=== PATIENT | male | born 1965 | race African-American/Black ===

== ENCOUNTER 2016-12-01 13:51 | Emergency (ER) | payer SELFPAY ==
[~2016-12-01] VITALS: Ht 172.7 cm; Wt 106.6 kg
[~2016-12-01 13:51] MED LIST: AMLO10TA2 PO; AMLO10TA4 PO; ASPI81TA44 PO; CRESTOR20 MG PO; DOXA4TAB3 PO; ESOM20CA PO; ESOM40CA PO; HYDR-2666 PO; HYDR-2672 PO; HYDR-971 PO; IBUP-1027 PO; INSU100C4 SQ; INSU100I17 SQ; INSU100I18 SQ; INSU100I27 SQ; INSU100V13 SQ; METF10002 PO; METF500T4 PO; METO10TA81 PO; NICO1PAT2 TP; ONDA4TAB10 SL; PROP40TA PO; RABE20TA5 PO; RANI150C PO; TAMS0.4C97 PO; VALS320T2 PO
[2016-12-01] MEDS ORDERED: IV NORMAL SALINE 1000ML BAG 1,000 ML IV SCH (15:22)
[2016-12-01 15:29] LABS: BASO % 0 % (0-3); EOS % 2 % (0-3); HEMATOCRIT 34.7 % (39.0-53.0); HEMOGLOBIN 11.2 g/dL (13.0-17.5); LYMPH # 1.1 x10^3/uL (1.0-4.8); LYMPH % 22 % (24-48); MEAN CORPUSCULAR HEMOGLOBIN 28 pg (25-35); MEAN CORPUSCULAR HGB CONC 32 g/dL (31-37); MEAN CORPUSCULAR VOLUME 88 fL (79-100); MONO % 7 % (0-9); NEUT % 69 % (31-73); PLATELET COUNT 186 x10^3/uL (140-400); RED BLOOD COUNT 3.93 x10^6/uL (4.30-5.70); WHITE BLOOD COUNT 5.3 x10^3/uL (4.0-11.0)
[2016-12-01] MEDS ORDERED: HYDROMORPHONE 2 MG/ML VIAL. IV ONE ×2 (15:30→17:00)
--- NOTE | 2016-12-01 15:30 | ED.ADGEN ---
Past Medical History Past Medical History: Diabetes-Type II, High Cholesterol, Hypertension, Pancreatitis, Renal Disease, Vascular Disease Additional Past Medical Histor: CHRONIC KIDNEY DISEASE, neuropathy, prostate Past Surgical History: Coronary Bypass Surgery, Other Additional Past Surgical Histo: HERNIA REPAIR Alcohol Use: Occasionally Drug Use: None Adult General Chief Complaint Chief Complaint: CHEST PAIN HPI HPI Patient is a 51 year old male presents emergency Department with multiple complaints. Patient is complaining that he is having pain again in his lower extremities including both great toes. Patient states this is similar to pain he has had due to his peripheral vascular disease. Patient did have right fem- pop bypass surgery last May. Patient reports that the pain is been increasing again over the last 1.5 weeks. However, the patient is not called his primary doctor nor his vascular surgeon regarding this issue. Patient states that his blood sugars have been running in the 200s and today they were up in the 300s. Patient also complains of some intermittent "stabbing" chest pain since last night. He also states he thinks he may be feeling his heart "fluttering". Both of these things only occur for a few seconds at a time. He has no associated nausea, vomiting, diaphoresis, dyspnea. Review of Systems Review of Systems Constitutional: Denies fever or chills. [] Eyes: Denies change in visual acuity. [] HENT: Denies nasal congestion or sore throat. [] Respiratory: Denies cough or shortness of breath. [] Cardiovascular: Denies chest pain or edema. [] GI: Denies abdominal pain, nausea, vomiting, bloody stools or diarrhea. [] : Denies dysuria. [] Musculoskeletal: Denies back pain or joint pain. [] Integument: Denies rash. [] Neurologic: Denies headache, focal weakness or sensory changes. [] Endocrine: Denies polyuria or polydipsia. [] Lymphatic: Denies swollen glands. [] Psychiatric: Denies depression or anxiety. [] Current Medications Current Medications Current Medications Medications (Trade) Dose Ordered Sig/Kiera Start Time Stop Time Status Last Admin Dose Admin Hydromorphone HCl (Dilaudid) 1 mg 1X ONCE 12/01/16 17:00 12/01/16 17:01 DC 12/01/16 17:09 1 MG Sodium Chloride (Iv Sodium Chloride 0.9% 1000ml Bag) 1,000 ml @ 1,000 mls/hr Q1H 12/01/16 15:22 12/01/16 16:21 DC 12/01/16 15:41 1,000 MLS/HR Allergies Allergies Allergies Coded Allergies Type Severity Reaction Last Updated Verified Sulfa (Sulfonamide Antibiotics) Allergy Intermediate Rash 08/05/16 Yes Physical Exam Physical Exam Constitutional: Well developed, well nourished, no acute distress, non-toxic appearance. [] HENT: Normocephalic, atraumatic, bilateral external ears normal, oropharynx moist, no oral exudates, nose normal. [] Eyes: PERRLA, EOMI, conjunctiva normal, no discharge. [] Neck: Normal range of motion, no tenderness, supple, no stridor. [] Cardiovascular:Heart rate regular rhythm, no murmur [] Lungs & Thorax: Bilateral breath sounds clear to auscultation [] Abdomen: Bowel sounds normal, soft, no tenderness, no masses, no pulsatile masses. [] Skin: Warm, dry, no erythema, no rash. [] Back: No tenderness, no CVA tenderness. [] Extremities: No tenderness, no cyanosis, no clubbing, ROM intact, no edema. [] Neurologic: Alert and oriented X 3, normal motor function, normal sensory function, no focal deficits noted. [] Psychologic: Affect normal, judgement normal, mood normal. [] Current Patient Data Vital Signs Vital Signs Date Time Temp Pulse Resp B/P Pulse Ox O2 Delivery O2 Flow Rate FiO2 12/01/16 17:09 Room Air 12/01/16 16:30 82 28 146/74 99 12/01/16 13:59 97.5 97.5 Lab Values Laboratory Tests Test 12/01/16 14:03 12/01/16 14:50 White Blood Count 5.3x10^3/uL (4.0-11.0) Red Blood Count 3.93x10^6/uL (4.30-5.70) L Hemoglobin 11.2g/dL (13.0-17.5) L Hematocrit 34.7% (39.0-53.0) L Mean Corpuscular Volume 88fL (79-100) Mean Corpuscular Hemoglobin 28pg (25-35) Mean Corpuscular Hemoglobin Concent 32g/dL (31-37) Red Cell Distribution Width 14.0% (11.5-14.5) Platelet Count 186x10^3/uL (140-400) Neutrophils (%) (Auto) 69% (31-73) Lymphocytes (%) (Auto) 22% (24-48) L Monocytes (%) (Auto) 7% (0-9) Eosinophils (%) (Auto) 2% (0-3) Basophils (%) (Auto) 0% (0-3) Neutrophils # (Auto) 3.7x10^3uL (1.8-7.7) Lymphocytes # (Auto) 1.1x10^3/uL (1.0-4.8) Monocytes # (Auto) 0.4x10^3/uL (0.0-1.1) Eosinophils # (Auto) 0.1x10^3/uL (0.0-0.7) Basophils # (Auto) 0.0x10^3/uL (0.0-0.2) Prothrombin Time 11.9SEC (11.7-14.0) Prothrombin Time INR 0.9 (0.8-1.1) PTT 25SEC (24-38) Sodium Level 139mmol/L (136-145) Potassium Level 3.9mmol/L (3.5-5.1) Chloride Level 104mmol/L (98-107) Carbon Dioxide Level 21mmol/L (21-32) Anion Gap 14 (6-14) Blood Urea Nitrogen 33mg/dL (8-26) H Creatinine 1.7mg/dL (0.7-1.3) H Estimated GFR (Cockcroft-Gault) 51.5 BUN/Creatinine Ratio 19 (6-20) Glucose Level 469mg/dL (70-99) H Calcium Level 8.5mg/dL (8.5-10.1) Total Bilirubin 0.2mg/dL (0.2-1.0) Aspartate Amino Transferase (AST) 14U/L (15-37) L Alanine Aminotransferase (ALT) 18U/L (16-63) Alkaline Phosphatase 101U/L (46-116) Troponin I Quantitative 0.041ng/mL (0.000-0.055) Total Protein 6.6g/dL (6.4-8.2) Albumin 2.9g/dL (3.4-5.0) L Albumin/Globulin Ratio 0.8 (1.0-1.7) L Urine Collection Type Unknown Urine Color Yellow Urine Clarity Clear Urine pH 5.5 Urine Specific [place] >=1.030 Urine Protein >=300mg/dL (NEG-TRACE) Urine Glucose (UA) >=1000mg/dL (NEG) Urine Ketones (Stick) Negativemg/dL (NEG) Urine Blood Trace (NEG) Urine Nitrite Negative (NEG) Urine Bilirubin Negative (NEG) Urine Urobilinogen Dipstick 0.2mg/dL (0.2 mg/dL) Urine Leukocyte Esterase Negative (NEG) Urine RBC Rare/HPF (0-2) Urine WBC Occ/HPF (0-4) Urine Squamous Epithelial Cells Few/LPF Urine Bacteria 0/HPF (0-FEW) Urine Hyaline Casts Few/HPF Urine Mucus Slight/LPF Urine Opiates Screen Pos (NEG) Urine Methadone Screen Neg (NEG) Urine Barbiturates Neg (NEG) Urine Phencyclidine Screen Neg (NEG) Urine Amphetamine/Methamphetamine Neg (NEG) Urine Benzodiazepines Screen Neg (NEG) Urine Cocaine Screen Pos (NEG) Urine Cannabinoids Screen Neg (NEG) Urine Ethyl Alcohol Neg (NEG) Laboratory Tests 12/01/16 14:03 Laboratory Tests 12/01/16 14:03 EKG EKG [] Radiology/Procedures Radiology/Procedures Chest x-ray interpreted by me, no acute cardiopulmonary process. PROCEDURE Bilateral lower extremity venous Doppler HISTORY pt c/o ble pain x 3 weeks r>l
rt fem bypass Apr 2016

reactive lymph nodes rt groin
no evidence of dvt bilateral leg pain, right femoral bypass April 2016 TECHNIQUE Duplex ultrasound was used to evaluate the veins of the right lower extremity and including real-time imaging with compression, color flow imaging and spectral Doppler with augmentation. COMPARISON None FINDINGS There are mildly prominent lymph nodes in the right groin.. Common femoral arteries are compressible in both lower extremities. There is normal flow with color imaging in the common femoral arteries and in the deep femoral artery. The femoral and popliteal arteries are compressible in both lower extremities and have flow with color imaging. There is normal antegrade flow with augmentation. There is flow with color imaging in the deep veins of the calf in both lower extremities. IMPRESSION Bilateral lower extremity venous Doppler negative for acute deep venous thrombosis. Electronically signed by: Tan Blount MD (Dec 01, 2016 17:42:34) DICTATED and SIGNED BY: TAN BLOUNT MD DATE: 12/01/16 5133 CC: NIVIA LEBLANC MD; NO PCP ~[] Course & Med Decision Making Course & Med Decision Making Pertinent Labs and Imaging studies reviewed. (See chart for details) Overall, the patient has a reassuring workup. He did ask surprised that he had cocaine in his system and that that may be contributing to some of his pain. Patient is being discharged home with instructions follow-up with his vascular surgeon on Saturday. [] Dragon Disclaimer Dragon Disclaimer This electronic medical record was generated, in whole or in part, using a voice recognition dictation system. NIVIA LEBLANC MD Dec 01, 2016 15:30
[2016-12-01 15:31] LABS: BILIRUBIN,URINE NEGATIVE (NEG); GLUCOSE,URINE >=1000 mg/dL (NEG); NITRITE,URINE NEGATIVE (NEG); PH,URINE 5.5; PROTEIN,URINE >=300 mg/dL (NEG-TRACE); UROBILINOGEN,URINE 0.2 mg/dL (0.2 mg/dL)
[2016-12-01 15:36] LABS: RBC,URINE RARE /HPF (0-2); WBC,URINE OCC /HPF (0-4)
[2016-12-01 15:37] LABS: BACTERIA,URINE 0 /HPF (0-FEW); SQUAMOUS EPITHELIAL CELL,UR FEW /LPF
[2016-12-01 15:38] LABS: BARBITURATES NEG (NEG); BENZODIAZEPINES NEG (NEG); CANNABINOIDS NEG (NEG); COCAINE POS (NEG); METHADONE NEG (NEG); OPIATES POS (NEG); PHENCYCLIDINE NEG (NEG)
[2016-12-01 15:39] LABS: INR 0.9 (0.8-1.1); PROTHROMBIN TIME PATIENT 11.9 SEC (11.7-14.0)
[2016-12-01 15:41] LABS: CALCIUM 8.5 mg/dL (8.5-10.1); CREATININE 1.7 mg/dL (0.7-1.3); GFR 51.5; POTASSIUM 3.9 mmol/L (3.5-5.1)
[2016-12-01 15:46] LABS: ETHANOL, URINE NEG (NEG)
[2016-12-01 15:49] LABS: ALBUMIN 2.9 g/dL (3.4-5.0); ALBUMIN/GLOBULIN RATIO 0.8 (1.0-1.7); TOTAL BILIRUBIN 0.2 mg/dL (0.2-1.0); TOTAL PROTEIN 6.6 g/dL (6.4-8.2)
--- NOTE | 2016-12-01 17:43 | RAD ---
PROCEDURE Bilateral lower extremity venous Doppler HISTORY pt c/o ble pain x 3 weeks r>l
rt fem bypass Apr 2016

reactive lymph nodes rt groin
no evidence of dvt bilateral leg pain, right femoral bypass April 2016 TECHNIQUE Duplex ultrasound was used to evaluate the veins of the right lower extremity and including real-time imaging with compression, color flow imaging and spectral Doppler with augmentation. COMPARISON None FINDINGS There are mildly prominent lymph nodes in the right groin.. Common femoral arteries are compressible in both lower extremities. There is normal flow with color imaging in the common femoral arteries and in the deep femoral artery. The femoral and popliteal arteries are compressible in both lower extremities and have flow with color imaging. There is normal antegrade flow with augmentation. There is flow with color imaging in the deep veins of the calf in both lower extremities. IMPRESSION Bilateral lower extremity venous Doppler negative for acute deep venous thrombosis. Electronically signed by: Jozef Piña MD (Dec 01, 2016 17:42:34)
[2016-12-01] MEDS ORDERED: HYDR-971 PO (17:59)
[2016-12-01 18:00] VITALS: BP 169/64
--- NOTE | 2016-12-02 09:11 | RAD ---
Indication: Chest pain for one day. Radiates to left. Technique: Upright portable chest radiograph was obtained. Comparison is from June 12, 2016. Findings: The lungs are clear. The cardiopulmonary silhouette is within normal limits. The bony structures are intact. Leads overlie the patient. Impression: No active pulmonary disease.
--- NOTE | 2016-12-02 11:14 | EKG ---
[facility] [address] [place] [address] Test Date: 2016-12-01 Test Time: 13:59:20 Pat Name: HAILEY MOREIRA Department: Room: Gender: M Procedure Writer: : 1965 Requested By: NIVIA LELBANC Order Number: [id number] Reading MD: Maite Kemp Measurements Intervals [place] Rate: 78 P: 50 AL: 172 QRS: 16 QRSD: 78 T: 172 QT: 368 QTc: 423 Interpretive Statements SINUS RHYTHM T ABNORMALITY IN ANTEROLATERAL LEADS INFEROLATERAL LEADS RI6.01 Unconfirmed report Compared to ECG 02/21/2016 14:28:16 No significant changes Electronically Signed On 12-02-2016 15:12:38 CDT by Maite Kemp
== END 2016-12-01 18:30 | disposition home or self-care (01) ==
LOC: ER 13:51
DX: M79.675 Pain in left toe(s) (principal); M79.674 Pain in right toe(s); I13.10 Hypertensive heart and chronic kidney disease without heart failure, with stage 1 through stage 4 chronic kidney disease, or unspecified chronic kidney disease; E11.40 Type 2 diabetes mellitus with diabetic neuropathy, unspecified; N18.9 Chronic kidney disease, unspecified; I99.9 Unspecified disorder of circulatory system; I73.9 Peripheral vascular disease, unspecified; Z95.1 Presence of aortocoronary bypass graft; Z88.2 Allergy status to sulfonamides
CPT/HCPCS: 36415; 71010; 80053; 81001; 84484; 85027; 85610; 85730; 93005; 93970; 96361; 96374; 96376; 99285; G0481; J1170; J7030

== ENCOUNTER 2017-04-08 09:04 | Inpatient (IN) | payer MEDICAID, OTHER ==
[~2017-04-08] VITALS: Ht 172.7 cm; Wt 107.7 kg
[~2017-04-08 09:04] MED LIST changes: -HYDR-2666 PO; -HYDR-2672 PO; +HYDR-2758 PO; +HYDR-2766 PO; +METF-620 PO; -METF10002 PO; +RABE20TA18 PO; -RABE20TA5 PO
[2017-04-08] MEDS ORDERED: IV NORMAL SALINE 1000ML BAG 1,000 ML IV ONE ×2 (09:45→11:30)
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
[2017-04-08 09:56] LABS: BASO % 1 % (0-3); EOS % 2 % (0-3); HEMATOCRIT 36.4 % (39.0-53.0); HEMOGLOBIN 12.1 g/dL (13.0-17.5); LYMPH # 1.4 x10^3/uL (1.0-4.8); LYMPH % 24 % (24-48); MEAN CORPUSCULAR HEMOGLOBIN 29 pg (25-35); MEAN CORPUSCULAR HGB CONC 33 g/dL (31-37); MEAN CORPUSCULAR VOLUME 87 fL (79-100); MONO % 7 % (0-9); NEUT % 67 % (31-73); PLATELET COUNT 200 x10^3/uL (140-400); RED BLOOD COUNT 4.21 x10^6/uL (4.30-5.70); WHITE BLOOD COUNT 5.8 x10^3/uL (4.0-11.0)
[2017-04-08 10:10] LABS: CALCIUM 8.9 mg/dL (8.5-10.1); CREATININE 2.2 mg/dL (0.7-1.3); GFR 38.2; POTASSIUM 3.8 mmol/L (3.5-5.1)
[2017-04-08 10:18] LABS: ALBUMIN 3.1 g/dL (3.4-5.0); ALBUMIN/GLOBULIN RATIO 0.7 (1.0-1.7); TOTAL BILIRUBIN 0.3 mg/dL (0.2-1.0); TOTAL PROTEIN 7.3 g/dL (6.4-8.2)
[2017-04-08 11:19] LABS: NEGATIVE OBC STREP NEG; POSITIVE OBC STREP POS
[2017-04-08] MEDS ORDERED: fentaNYL PF VIAL 100 MCG/2 ML VIAL IV ONE (11:30)
[2017-04-08] MEDS ORDERED: MORPHINE SULFATE 4 MG/ML DISP.SYRIN. IV PRN (11:30)
[2017-04-08] MEDS ORDERED: ONDANSETRON PF 4 MG/2 ML VIAL. IV PRN ×2 (11:30→15:30)
[2017-04-08] MEDS: IV NORMAL SALINE 1000ML BAG 1,000 ML IV SCH ×2 (11:43→19:29)
[2017-04-08] MEDS ORDERED: hydrALAZINE 20 MG/ML VIAL. IVP ONE (12:15)
[2017-04-08 14:54] VITALS: BP 163/95
[2017-04-08] MEDS ORDERED: DEXTROSE 50% 25 GM / 50ML DISP.SYRIN. IV PRN (15:15)
[2017-04-08] MEDS ORDERED: BENZOCAINE/MENTHOL LOZENGE. PO PRN ×4 (15:15→22:00)
[2017-04-08] MEDS ORDERED: traMADol 50 MG TABLET PO PRN (15:30)
[2017-04-08] MEDS ORDERED: DOCUSATE SODIUM 100 MG CAPSULE. PO PRN (15:30)
[2017-04-08] MEDS ORDERED: ALBUTEROL SULFATE 2.5 MG/3 ML NEBU. NEB PRN (15:30)
[2017-04-08] MEDS ORDERED: NICOTINE 14MG PATCH. TD PRN (15:30)
[2017-04-08] MEDS ORDERED: METOCLOPRAMIDE 10 MG TABLET. PO PRN (15:30)
[2017-04-08] MEDS ORDERED: hydrALAZINE 20 MG/ML VIAL. IVP PRN (15:30)
[2017-04-08] MEDS ORDERED: ACETAMINOPHEN 325 MG TABLET. PO PRN (15:30)
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
[2017-04-08] MEDS ORDERED: ENOXAPARIN 30 MG/0.3 ML SYRINGE. SQ SCH (16:00)
[2017-04-08] MEDS ORDERED: ENOXAPARIN 40 MG/0.4 ML SYRINGE. SQ SCH (16:00)
[2017-04-08] MEDS: amLODIPine BESYLATE 10 MG TABLET PO SCH (17:00)
[2017-04-08] MEDS: LOSARTAN POTASSIUM 50 MG TABLET. PO SCH (17:00)
[2017-04-08] MEDS: ASPIRIN CHEWABLE 81 MG TABLET. PO SCH (17:01)
[2017-04-08] MEDS: DOXAZOSIN MESYLATE 4 MG TABLET. PO SCH (17:01)
[2017-04-08] MEDS: INSULIN ASPART 300 UNITS/3 ML INSULN.PEN SQ SCH ×2 (17:05→17:06)
[2017-04-08 19:00] VITALS: BP 159/79
[2017-04-08] MEDS: MORPHINE SULFATE 2 MG/ML DISP.SYRIN. IV PRN ×2 (19:01→22:04)
[2017-04-08] MEDS: INSULIN DETEMIR 300 UNITS/3 ML INSULN.PEN. SQ SCH (21:28)
[2017-04-08] MEDS ORDERED: DOCUSATE 100 MG/10 ML SOLUTION. AU PRN (21:30)
[2017-04-08] MEDS ORDERED: CALCIUM CARBONATE 500 MG TAB.CHEW PO PRN (22:00)
[2017-04-08] MEDS ORDERED: BISMUTH SUBSALICYLATE 262 MG/15 ML ORAL.SUSP 236ML BOTTLE. PO PRN (22:00)
[2017-04-08] MEDS: FAMOTIDINE 20 MG TABLET. PO SCH (22:03)
[2017-04-08] MEDS: PHENOL ORAL SPRAY 177ML BOTTLE. PO PRN (22:04)
[2017-04-08] MEDS: LIDOCAINE 1% PF 2 ML VIAL. AU PRN (22:04)
[2017-04-08 22:42] VITALS: BP 156/89
[2017-04-09] MEDS: PHENOL ORAL SPRAY 177ML BOTTLE. PO PRN ×3 (00:16→06:29)
[2017-04-09] MEDS: LIDOCAINE 1% PF 2 ML VIAL. AU PRN ×4 (02:09→20:44)
[2017-04-09] MEDS: MORPHINE SULFATE 2 MG/ML DISP.SYRIN. IV PRN (02:13)
[2017-04-09] MEDS: IV NORMAL SALINE 1000ML BAG 1,000 ML IV SCH (03:15)
--- NOTE | 2017-04-09 04:36 | ACF ---
Admission Forms Criteria RENAL FAILURE, ACUTE Clinical Indications for Admission to Inpatient Care ( Place 'X' for any and all applicable criteria): Admission is indicated for ALL (if I & II) or III of the following [A](2)(3)(4)( 5)(6)(7): [ ]I. Acute renal failure as indicated by ANY ONE of the following: [ ]a) A 3-fold rise in serum creatinine from baseline [ ]b) Serum creatinine greater than 4 mg/dL (354 micromoles/L) with an acute rise greater than 0.5 mg/dL (44.2 micromoles/L) [ ]c) Reduction of more than 75% in estimated glomerular filtration rate from baseline [ ]d) Estimated glomerular filtration rate less than 35 mL/min/1.73m2 (0.59mL/sec/1.73m2)in a child up to 18 years of age [ ]e) Anuria indicated by ALL of the following: [ ]i) Adequate volume status [ ]ii) Cessation of urine output indicated by ANY ONE of the following: [ ]1) Urine output less than 0.3 mL/kg/hr for 24 hours [ ]2) Anuria (urine output less than 0.1 mL/kg/ hr) for 12 hours [ ] II. Renal failure cannot be managed in an outpatient setting or observational care setting as indicating by ANY ONE of the following: [ ]a) Altered mental status that is severe or persistent [ ]b) Volume overload or Respiratory distress (eg, clinically significant pulmonary edema) that is severe or persistent [ ]c) Cardiac arrhythmias of immediate concern [ ]d) Hemodynamic instability [ ]e) Clinically significant electrolyte abnormality that requires inpatient care (eg, hyperkalemia with severe ECG findings)[B] [ ]f) Clinically significant metabolic abnormality (eg, acidosis) that is severe or persistent [ ]g) Acute treatment of renal failure (eg, renal replacement therapy) not feasible or appropriate in observational care setting [ ]h) Clinical situation too unstable or uncertain (eg, inadequate urine output, ongoing decline in renal function, etiology unclear) [ ]i) Necessary support and caregiver ability to comply with outpatient treatment cannot be arranged in observation care timeframe (eg, within 24 hours) [ ]j) Other significant finding or clinical condition judged not to be within scope of observation care [X]III.General contraindications and/or Inappropriate clinical situations for Observational Care in patients with Acute Renal Failure, when ANY ONE of the following is required: [X]a) Prediction of prolongation of LOS based on ANY ONE of the following may be considered as a contraindication for observational care 2, 3, 4, 5, 6, 7, 8 , 9, 10, 11 [ ]i) Age > 65 yrs. [ ]ii) Patient arriving by ambulance [ ]iii) Patient with high acuity [X]iv) Patient requiring vital sign monitoring [ ]v) Patient on IV medication [ ]b) Systolic blood pressures 180mmHg 3,12 [ ]c) Patient with altered mental status including delirium and other alteration of consciousness, (3) [ ]d) Patient whose discharge disposition will be to a shelter home or rehabilitation home should not be managed in Emergency Department Observation Unit. CMS rule requires 3 days hospital stay before such placement.3,13 [ ]e) Patient with failure to thrive due to broad array of etiologies 3, 16,17 [ ]f) Inability to ambulate 3,14 Extended stay beyond goal length of stay may be needed for(13) [ ]a) Continuing uremic complications [ ]b) Care for comorbidities [ ]c) acute renal failure [ ]d) Need for dialysis The original [employer] content created by [employer] has been revised. The portions of the content which have been revised are identified through the use of italic text or in bold, and [facility] has neither reviewed nor approved the modified material. All other unmodified content is copyright [employer]. Please see references footnoted in the original [employer] edition 2015 Admission Criteria Met?: Yes VALENTÍN HELLER Apr 09, 2017 04:36
[2017-04-09 06:55] LABS: BASO % 1 % (0-3); EOS % 3 % (0-3); HEMATOCRIT 33.2 % (39.0-53.0); HEMOGLOBIN 11.2 g/dL (13.0-17.5); LYMPH # 1.6 x10^3/uL (1.0-4.8); LYMPH % 34 % (24-48); MEAN CORPUSCULAR HEMOGLOBIN 29 pg (25-35); MEAN CORPUSCULAR HGB CONC 34 g/dL (31-37); MEAN CORPUSCULAR VOLUME 86 fL (79-100); MONO % 8 % (0-9); NEUT % 55 % (31-73); PLATELET COUNT 177 x10^3/uL (140-400); RED BLOOD COUNT 3.86 x10^6/uL (4.30-5.70); RED CELL DISTRIBUTION WIDTH 13.1 % (11.5-14.5); WHITE BLOOD COUNT 4.6 x10^3/uL (4.0-11.0)
[2017-04-09 07:00] VITALS: BP 151/94
[2017-04-09 07:09] LABS: CALCIUM 8.4 mg/dL (8.5-10.1); CREATININE 1.5 mg/dL (0.7-1.3); GFR 59.5; POTASSIUM 3.6 mmol/L (3.5-5.1)
[2017-04-09] MEDS: LOSARTAN POTASSIUM 50 MG TABLET. PO SCH (10:00)
[2017-04-09] MEDS: ASPIRIN CHEWABLE 81 MG TABLET. PO SCH (10:00)
[2017-04-09] MEDS: PANTOPRAZOLE 40 MG TABLET.DR. PO SCH (10:00)
[2017-04-09] MEDS: amLODIPine BESYLATE 10 MG TABLET PO SCH (10:00)
[2017-04-09] MEDS: FAMOTIDINE 20 MG TABLET. PO SCH ×2 (10:00→20:44)
[2017-04-09] MEDS: HYDROcodone/APAP 5/325MG 1 TAB TABLET PO PRN ×2 (10:01→18:07)
[2017-04-09] MEDS: DOXAZOSIN MESYLATE 4 MG TABLET. PO SCH (10:01)
[2017-04-09] MEDS: INSULIN ASPART 300 UNITS/3 ML INSULN.PEN SQ SCH ×6 (10:07→18:12)
[2017-04-09 11:00] VITALS: BP 161/86
--- NOTE | 2017-04-09 13:24 | PDOC ---
PROGRESS NOTES Chief Complaint Chief Complaint sore throat, ear pain, 2/2 viral infection likely, strep neg uncontrolled dm2 on insulin accellerated HTN hld MARQUISE on CKD 3, vasomotor BPH History of Present Illness History of Present Illness still dysphagia, blood sugar better cont levemir 50u qhs, aspart 20u tid, SSI throat lozenge and spray still dysphagia, pain control labs tmr cough meds dvt ppx Vitals Vitals Vital Signs Date Time Temp Pulse Resp B/P (MAP) Pulse Ox O2 Delivery O2 Flow Rate FiO2 04/09/17 11:10 20 93 Room Air 04/09/17 11:00 98.7 71 161/86 (111) 98.7 Physical Exam General: Alert, Oriented X3, Cooperative, No acute distress Heart: Regular rate, No murmurs Lungs: Clear Abdomen: Normal bowel sounds Extremities: No clubbing, No edema Skin: No rashes, No breakdown Labs LABS Laboratory Tests Test 04/08/17 16:10 04/08/17 20:16 04/09/17 06:25 04/09/17 07:43 Glucose (Fingerstick) 458 mg/dL (70-99) 320 mg/dL (70-99) 217 mg/dL (70-99) White Blood Count 4.6 x10^3/uL (4.0-11.0) Red Blood Count 3.86 x10^6/uL (4.30-5.70) Hemoglobin 11.2 g/dL (13.0-17.5) Hematocrit 33.2 % (39.0-53.0) Mean Corpuscular Volume 86 fL (79-100) Mean Corpuscular Hemoglobin 29 pg (25-35) Mean Corpuscular Hemoglobin Concent 34 g/dL (31-37) Red Cell Distribution Width 13.1 % (11.5-14.5) Platelet Count 177 x10^3/uL (140-400) Neutrophils (%) (Auto) 55 % (31-73) Lymphocytes (%) (Auto) 34 % (24-48) Monocytes (%) (Auto) 8 % (0-9) Eosinophils (%) (Auto) 3 % (0-3) Basophils (%) (Auto) 1 % (0-3) Neutrophils # (Auto) 2.5 x10^3uL (1.8-7.7) Lymphocytes # (Auto) 1.6 x10^3/uL (1.0-4.8) Monocytes # (Auto) 0.4 x10^3/uL (0.0-1.1) Eosinophils # (Auto) 0.1 x10^3/uL (0.0-0.7) Basophils # (Auto) 0.0 x10^3/uL (0.0-0.2) Sodium Level 140 mmol/L (136-145) Potassium Level 3.6 mmol/L (3.5-5.1) Chloride Level 106 mmol/L (98-107) Carbon Dioxide Level 27 mmol/L (21-32) Anion Gap 7 (6-14) Blood Urea Nitrogen 18 mg/dL (8-26) Creatinine 1.5 mg/dL (0.7-1.3) Estimated GFR (Cockcroft-Gault) 59.5 Glucose Level 251 mg/dL (70-99) Calcium Level 8.4 mg/dL (8.5-10.1) Test 04/09/17 11:50 Glucose (Fingerstick) 223 mg/dL (70-99) Review of Systems Review of Systems no n.v/d + lethargy, poor po intake Assessment and Plan Assessmemt and Plan Problems Medical Problems: (1) ARF (acute renal failure) Status: Acute (2) Hyperglycemia Status: Acute Problems: Comment Review of Relevant I have reviewed the following items karissa (where applicable) has been applied. Labs Laboratory Tests Test 04/08/17 09:21 04/08/17 09:42 04/08/17 09:44 04/08/17 13:08 Glucose (Fingerstick) 435 mg/dL (70-99) 351 mg/dL (70-99) White Blood Count 5.8 x10^3/uL (4.0-11.0) Red Blood Count 4.21 x10^6/uL (4.30-5.70) Hemoglobin 12.1 g/dL (13.0-17.5) Hematocrit 36.4 % (39.0-53.0) Mean Corpuscular Volume 87 fL (79-100) Mean Corpuscular Hemoglobin 29 pg (25-35) Mean Corpuscular Hemoglobin Concent 33 g/dL (31-37) Red Cell Distribution Width 13.0 % (11.5-14.5) Platelet Count 200 x10^3/uL (140-400) Neutrophils (%) (Auto) 67 % (31-73) Lymphocytes (%) (Auto) 24 % (24-48) Monocytes (%) (Auto) 7 % (0-9) Eosinophils (%) (Auto) 2 % (0-3) Basophils (%) (Auto) 1 % (0-3) Neutrophils # (Auto) 3.9 x10^3uL (1.8-7.7) Lymphocytes # (Auto) 1.4 x10^3/uL (1.0-4.8) Monocytes # (Auto) 0.4 x10^3/uL (0.0-1.1) Eosinophils # (Auto) 0.1 x10^3/uL (0.0-0.7) Basophils # (Auto) 0.0 x10^3/uL (0.0-0.2) Sodium Level 134 mmol/L (136-145) Potassium Level 3.8 mmol/L (3.5-5.1) Chloride Level 99 mmol/L (98-107) Carbon Dioxide Level 27 mmol/L (21-32) Anion Gap 8 (6-14) Blood Urea Nitrogen 28 mg/dL (8-26) Creatinine 2.2 mg/dL (0.7-1.3) Estimated GFR (Cockcroft-Gault) 38.2 BUN/Creatinine Ratio 13 (6-20) Glucose Level 480 mg/dL (70-99) Calcium Level 8.9 mg/dL (8.5-10.1) Total Bilirubin 0.3 mg/dL (0.2-1.0) Aspartate Amino Transf (AST/SGOT) 16 U/L (15-37) Alanine Aminotransferase (ALT/SGPT) 16 U/L (16-63) Alkaline Phosphatase 117 U/L (46-116) Total Protein 7.3 g/dL (6.4-8.2) Albumin 3.1 g/dL (3.4-5.0) Albumin/Globulin Ratio 0.7 (1.0-1.7) Group A Streptococcus Rapid Negative (NEGATIVE) Test 04/08/17 16:10 04/08/17 20:16 04/09/17 06:25 04/09/17 07:43 Glucose (Fingerstick) 458 mg/dL (70-99) 320 mg/dL (70-99) 217 mg/dL (70-99) White Blood Count 4.6 x10^3/uL (4.0-11.0) Red Blood Count 3.86 x10^6/uL (4.30-5.70) Hemoglobin 11.2 g/dL (13.0-17.5) Hematocrit 33.2 % (39.0-53.0) Mean Corpuscular Volume 86 fL (79-100) Mean Corpuscular Hemoglobin 29 pg (25-35) Mean Corpuscular Hemoglobin Concent 34 g/dL (31-37) Red Cell Distribution Width 13.1 % (11.5-14.5) Platelet Count 177 x10^3/uL (140-400) Neutrophils (%) (Auto) 55 % (31-73) Lymphocytes (%) (Auto) 34 % (24-48) Monocytes (%) (Auto) 8 % (0-9) Eosinophils (%) (Auto) 3 % (0-3) Basophils (%) (Auto) 1 % (0-3) Neutrophils # (Auto) 2.5 x10^3uL (1.8-7.7) Lymphocytes # (Auto) 1.6 x10^3/uL (1.0-4.8) Monocytes # (Auto) 0.4 x10^3/uL (0.0-1.1) Eosinophils # (Auto) 0.1 x10^3/uL (0.0-0.7) Basophils # (Auto) 0.0 x10^3/uL (0.0-0.2) Sodium Level 140 mmol/L (136-145) Potassium Level 3.6 mmol/L (3.5-5.1) Chloride Level 106 mmol/L (98-107) Carbon Dioxide Level 27 mmol/L (21-32) Anion Gap 7 (6-14) Blood Urea Nitrogen 18 mg/dL (8-26) Creatinine 1.5 mg/dL (0.7-1.3) Estimated GFR (Cockcroft-Gault) 59.5 Glucose Level 251 mg/dL (70-99) Calcium Level 8.4 mg/dL (8.5-10.1) Test 04/09/17 11:50 Glucose (Fingerstick) 223 mg/dL (70-99) Laboratory Tests Test 04/08/17 16:10 04/08/17 20:16 04/09/17 06:25 04/09/17 07:43 Glucose (Fingerstick) 458 mg/dL (70-99) 320 mg/dL (70-99) 217 mg/dL (70-99) White Blood Count 4.6 x10^3/uL (4.0-11.0) Red Blood Count 3.86 x10^6/uL (4.30-5.70) Hemoglobin 11.2 g/dL (13.0-17.5) Hematocrit 33.2 % (39.0-53.0) Mean Corpuscular Volume 86 fL (79-100) Mean Corpuscular Hemoglobin 29 pg (25-35) Mean Corpuscular Hemoglobin Concent 34 g/dL (31-37) Red Cell Distribution Width 13.1 % (11.5-14.5) Platelet Count 177 x10^3/uL (140-400) Neutrophils (%) (Auto) 55 % (31-73) Lymphocytes (%) (Auto) 34 % (24-48) Monocytes (%) (Auto) 8 % (0-9) Eosinophils (%) (Auto) 3 % (0-3) Basophils (%) (Auto) 1 % (0-3) Neutrophils # (Auto) 2.5 x10^3uL (1.8-7.7) Lymphocytes # (Auto) 1.6 x10^3/uL (1.0-4.8) Monocytes # (Auto) 0.4 x10^3/uL (0.0-1.1) Eosinophils # (Auto) 0.1 x10^3/uL (0.0-0.7) Basophils # (Auto) 0.0 x10^3/uL (0.0-0.2) Sodium Level 140 mmol/L (136-145) Potassium Level 3.6 mmol/L (3.5-5.1) Chloride Level 106 mmol/L (98-107) Carbon Dioxide Level 27 mmol/L (21-32) Anion Gap 7 (6-14) Blood Urea Nitrogen 18 mg/dL (8-26) Creatinine 1.5 mg/dL (0.7-1.3) Estimated GFR (Cockcroft-Gault) 59.5 Glucose Level 251 mg/dL (70-99) Calcium Level 8.4 mg/dL (8.5-10.1) Test 04/09/17 11:50 Glucose (Fingerstick) 223 mg/dL (70-99) Medications Current Medications Sodium Chloride 1,000 ml @ 1,000 mls/hr 1X ONCE IV Last administered on 10:01; Start 04/08/17 at 09:45; Stop 04/08/17 at 10:44; Status DC Fentanyl Citrate (Fentanyl 2ml Vial) 50 mcg 1X ONCE IV Last administered on 11:37; Start 04/08/17 at 11:30; Stop 04/08/17 at 11:31; Status DC Sodium Chloride 1,000 ml @ 1,000 mls/hr 1X ONCE IV Last administered on 11:46; Start 04/08/17 at 11:30; Stop 04/08/17 at 12:29; Status DC Ondansetron HCl (Zofran) 4 mg PRN Q8HRS PRN IV NAUSEA/VOMITING; Start 04/08/17 at 11:30; Stop 04/09/17 at 11:29; Status DC Morphine Sulfate 4 mg PRN Q2HR PRN IV PAIN Last administered on 04/08/17 14:19 ; Start 04/08/17 at 11:30; Stop 04/09/17 at 11:29; Status DC Sodium Chloride 1,000 ml @ 125 mls/hr Q8H IV Last administered on 04/09/17 03 :15; Start 04/08/17 at 11:29; Stop 04/09/17 at 11:28; Status DC Hydralazine HCl (Apresoline) 10 mg 1X ONCE IVP Last administered on 04/08/17 12:54; Start 04/08/17 at 12:15; Stop 04/08/17 at 12:16; Status DC Insulin Aspart (NovoLOG) 0-7 UNITS TIDWMEALS SQ Last administered on 04/09/17 12:33; Start 04/08/17 at 17:00 Dextrose (Dextrose 50%-Water Syringe) 12.5 gm PRN Q15MIN PRN IV SEE COMMENTS; Start 04/08/17 at 15:15 Throat Lozenges (Cepacol Sore Throat Lozenge) 1 jacob PRN Q2HRS PRN PO SORE THROAT; Start 04/08/17 at 15:15; Status Cancel Amlodipine Besylate (Norvasc) 10 mg DAILY PO Last administered on 04/09/17 10: 00; Start 04/08/17 at 16:00 Aspirin (Children'S Aspirin) 81 mg DAILYWBKFT PO Last administered on 10:00; Start 04/08/17 at 16:00 Doxazosin Mesylate (Cardura) 4 mg DAILY PO Last administered on 04/09/17 10:01 ; Start 04/08/17 at 16:00 Acetaminophen/ Hydrocodone Bitart (Lortab 5/325) 1 tab PRN Q6HRS PRN PO PAIN Last administered on 04/09/17 10:01; Start 04/08/17 at 15:30 Insulin Aspart (NovoLOG) 20 units TIDAC SQ Last administered on 04/09/17 12:32 ; Start 04/08/17 at 16:30 Insulin Detemir (Levemir) 50 units HS SQ Last administered on 04/08/17 21:28; Start 04/08/17 at 21:00 Metoclopramide HCl (Reglan) 10 mg PRN TID PRN PO NAUSEA/VOMITING; Start at 15:30 Nicotine (Nicoderm Cq 14mg) 1 patch PRN DAILY PRN TD SEE COMMENTS; Start at 15:30 Pantoprazole Sodium (Protonix) 40 mg DAILYAC PO Last administered on 04/09/17 10:00; Start 04/09/17 at 07:30 Losartan Potassium (Cozaar) 100 mg DAILY PO Last administered on 04/09/17 10: 00; Start 04/08/17 at 16:00 Acetaminophen (Tylenol) 650 mg PRN Q6HRS PRN PO FEVER; Start 04/08/17 at 15:30 Ondansetron HCl (Zofran) 4 mg PRN Q6HRS PRN IV NAUSEA/VOMITING; Start 04/08/17 at 15:30 Morphine Sulfate 2 mg PRN Q2HR PRN IV PAIN Last administered on 7/25/17at 02:13 ; Start 04/08/17 at 15:30 Tramadol HCl (Ultram) 50 mg PRN Q6HRS PRN PO PAIN; Start 04/08/17 at 15:30 Hydralazine HCl (Apresoline) 10 mg PRN Q4HRS PRN IVP ELEVATED BP, SEE COMMENTS ; Start 04/08/17 at 15:30 Docusate Sodium (Colace) 100 mg PRN DAILY PRN PO CONSTIPATION; Start 04/08/17 at 15:30 Throat Lozenges (Cepacol Sore Throat Lozenge) 1 jacob PRN Q2HRS PRN PO SORE THROAT; Start 04/08/17 at 15:30; Status UNV Throat Lozenges (Cepacol Sore Throat Lozenge) 1 jacob PRN Q2HRS PRN PO SORE THROAT Last administered on 04/08/17 18:08; Start 04/08/17 at 15:30 Albuterol Sulfate (Ventolin Neb Soln) 2.5 mg PRN Q4HRS PRN NEB SHORTNESS OF BREATH Last administered on 04/08/17 20:58; Start 04/08/17 at 15:30 Enoxaparin Sodium (Lovenox 40mg Syringe) 40 mg Q24H SQ ; Start 04/08/17 at 16:00 ; Stop 04/08/17 at 16:00; Status DC Enoxaparin Sodium (Lovenox 30mg Syringe) 30 mg Q24H SQ Last administered on 16:00; Start 04/08/17 at 16:00; Stop 04/09/17 at 11:47; Status DC Guaifenesin (Robitussin) 200 mg PRN Q4HRS PRN PO COUGH; Start 04/08/17 at 15:45 Docusate Sodium (Colace Solution) 100 mg PRN BID PRN AU ear drops; Start at 21:30 Lidocaine HCl (Xylocaine-Mpf 1% Vial) 2 ml PRN Q4HRS PRN AU EAR PAIN Last administered on 04/09/17 12:25; Start 04/08/17 at 21:30 Throat Lozenges (Chloraseptic) 1 spray PRN Q2HR PRN PO SORE THROAT Last administered on 04/09/17 06:29; Start 04/08/17 at 22:00 Throat Lozenges (Cepacol Sore Throat Lozenge) 1 jacob PRN Q2HRS PRN PO SORE THROAT; Start 04/08/17 at 22:00; Status UNV Bismuth Subsalicylate (Pepto-Bismol) 262 mg PRN Q1HR PRN PO DIARRHEA; Start at 22:00 Famotidine (Pepcid) 20 mg BID PO Last administered on 04/09/17t 10:00; Start at 22:00 Calcium Carbonate/ Glycine (Tums) 500 mg PRN AFTMEALHC PRN PO INDIGESTION; Start 04/08/17 at 22:00 Enoxaparin Sodium (Lovenox 40mg Syringe) 40 mg Q24H SQ ; Start 04/09/17 at 16:00 Active Scripts Active [place] 5-325 Tablet (Acetaminophen/Hydrocodone Bitart) 1 Each Tablet 1-2 Tab PO Q6HRS PRN Reglan (Metoclopramide Hcl) 10 Mg Tablet 1 Tab PO TID PRN Flomax (Tamsulosin Hcl) 0.4 Mg Cap.er.24h 0.4 Mg PO DAILY Levemir Flextouch (Insulin Detemir) 100 Unit/1 Ml Insuln.pen 65 Units SQ QHS 30 Days Hydrocodone-Apap 10-325 (Hydrocodone Bit/Acetaminophen) 1 Each Tablet 1 Tab PO PRN Q4HRS PRN Children's Aspirin (Aspirin) 81 Mg Tab.chew 81 Mg PO DAILYWBKFT Reported Nexium Capsule (Esomeprazole Magnesium) 40 Mg Capsule.dr 1 Cap PO DAILY Amlodipine Besylate 10 Mg Tablet 10 Mg PO DAILY Ranitidine Hcl 150 Mg Capsule 1 Cap PO DAILY Doxazosin Mesylate 4 Mg Tablet 1 Tab PO DAILY Nicotine Patch (Nicotine) 1 Each Patch.td24 1 Patch TP DAILY Diovan (Valsartan) 320 Mg Tablet 320 Mg PO DAILY Crestor (Rosuvastatin Calcium) 20 Mg Tablet 20 Mg PO QHS Levemir Flexpen (Insulin Detemir) 100 Unit/1 Ml Insuln.pen 50 Unit SQ HS Novolog Flexpen (Insulin Aspart) 100 Unit/1 Ml Insuln.pen 20 Unit SQ TIDAC Vitals/I & O Vital Sign - Last 24 Hours 04/08/17 04/08/17 04/08/17 04/08/17 14:19 14:30 14:54 15:00 Temp 97.9 97.9 Pulse 75 Resp 20 20 20 B/P (MAP) 163/95 (117) Pulse Ox 93 97 93 O2 Delivery Room Air Room Air Room Air Room Air 04/08/17 04/08/17 04/08/17 04/08/17 17:00 17:00 17:01 19:00 Temp 97.5 97.5 Pulse 75 75 75 97 Resp 18 B/P (MAP) 163/95 163/95 163/95 159/79 (105) Pulse Ox 96 O2 Delivery Room Air 04/08/17 04/08/17 04/08/17 04/08/17 19:01 20:00 21:01 22:04 Resp 20 Pulse Ox 93 96 96 O2 Delivery Room Air Room Air Room Air Room Air 04/08/17 04/09/17 04/09/17 04/09/17 22:42 02:13 02:43 07:00 Temp 98.3 99.0 98.3 99.0 Pulse 91 80 Resp 18 20 B/P (MAP) 156/89 (111) 151/94 (113) Pulse Ox 94 94 94 98 O2 Delivery Room Air Room Air Room Air Room Air 04/09/17 04/09/17 04/09/17 04/09/17 10:00 10:00 10:01 10:01 Pulse 80 80 80 Resp 20 B/P (MAP) 151/94 151/94 151/94 Pulse Ox 93 O2 Delivery Room Air 04/09/17 04/09/17 11:00 11:10 Temp 98.7 98.7 Pulse 71 Resp 20 20 B/P (MAP) 161/86 (111) Pulse Ox 98 93 O2 Delivery Room Air Room Air Intake and Output 04/08/17 04/08/17 04/09/17 15:00 23:00 07:00 Intake Total 1000 ml 2100 ml 1760 ml Output Total 450 ml 800 ml 1500 ml Balance 550 ml 1300 ml 260 ml PAUL CERRATO MD Apr 09, 2017 13:23
[2017-04-09 15:00] VITALS: BP 135/63
[2017-04-09] MEDS ORDERED: ENOXAPARIN 40 MG/0.4 ML SYRINGE. SQ SCH (16:00)
[2017-04-09 19:00] VITALS: BP 148/71
[2017-04-09] MEDS: INSULIN DETEMIR 300 UNITS/3 ML INSULN.PEN. SQ SCH (20:54)
[2017-04-09 23:00] VITALS: BP 161/90
[2017-04-10] MEDS: LIDOCAINE 1% PF 2 ML VIAL. AU PRN (01:05)
[2017-04-10] MEDS: HYDROcodone/APAP 5/325MG 1 TAB TABLET PO PRN ×2 (01:06→08:45)
[2017-04-10 07:00] VITALS: BP 170/94
[2017-04-10] MEDS: INSULIN ASPART 300 UNITS/3 ML INSULN.PEN SQ SCH ×2 (08:00→08:52)
[2017-04-10] MEDS ORDERED: HYDR-971 PO (08:41)
[2017-04-10] MEDS: ASPIRIN CHEWABLE 81 MG TABLET. PO SCH (08:45)
[2017-04-10] MEDS: FAMOTIDINE 20 MG TABLET. PO SCH (08:45)
[2017-04-10] MEDS: amLODIPine BESYLATE 10 MG TABLET PO SCH (08:45)
[2017-04-10] MEDS: PANTOPRAZOLE 40 MG TABLET.DR. PO SCH (08:45)
[2017-04-10] MEDS: LOSARTAN POTASSIUM 50 MG TABLET. PO SCH (08:46)
[2017-04-10] MEDS: DOXAZOSIN MESYLATE 4 MG TABLET. PO SCH (08:46)
[2017-04-10] MEDS ORDERED: AMOX1TAB61 PO (08:49)
[2017-04-10] MEDS ORDERED: AMOXICILLIN/K CLAV 875/125MG TABLET. PO SCH (09:00)
[2017-04-10 11:00] VITALS: BP 146/83
== END 2017-04-10 11:28 | disposition home or self-care (01) | DRG 865 ==
LOC: ER 09:04 → 5 SOUTH 11:32
PROVIDERS: ADMIT Internal Medicine; ATTEND Internal Medicine
DX: B34.9 Viral infection, unspecified (principal); N17.0 Acute kidney failure with tubular necrosis; F17.210 Nicotine dependence, cigarettes, uncomplicated; E78.5 Hyperlipidemia, unspecified; N18.3 Chronic kidney disease, stage 3 (moderate); N40.0 Benign prostatic hyperplasia without lower urinary tract symptoms; I12.9 Hypertensive chronic kidney disease with stage 1 through stage 4 chronic kidney disease, or unspecified chronic kidney disease; E11.22 Type 2 diabetes mellitus with diabetic chronic kidney disease; J45.909 Unspecified asthma, uncomplicated; E11.40 Type 2 diabetes mellitus with diabetic neuropathy, unspecified; E11.65 Type 2 diabetes mellitus with hyperglycemia; Z79.4 Long term (current) use of insulin; Z82.49 Family history of ischemic heart disease and other diseases of the circulatory system; Z80.9 Family history of malignant neoplasm, unspecified; Z86.73 Personal history of transient ischemic attack (TIA), and cerebral infarction without residual deficits; Z87.01 Personal history of pneumonia (recurrent); Z88.2 Allergy status to sulfonamides
CPT/HCPCS: 36415; 80048; 80053; 82962; 83036; 85027; 87070; 87880; 94250; 94640; 96361; 96374; J0360; J1650; J1815; J2270; J3010; J7030; J7613; 99285-25

== ENCOUNTER → 2018-06-03 | Outpatient (CLI) | payer OTHER ==
[~2018-06-03] MED LIST changes: -AMLO10TA2 PO; +AMLO10TA6 PO; +AMOX1TAB61 PO; -ASPI81TA44 PO; +ASPI81TA59 PO; -METF-620 PO; +METF10007 PO; +METF500T16 PO; -METF500T4 PO
--- NOTE | 2018-06-03 15:32 | RAD ---
EXAM: Chest, 2 views. HISTORY: Shortness of breath. COMPARISON: 12/01/2016. FINDINGS: 2 views of the chest are obtained. There is no infiltrate, pleural effusion or pneumothorax. There is mild enlargement of the cardiac silhouette. IMPRESSION: 1. No acute pulmonary finding. 2. Mild cardiomegaly. Electronically signed by: Emily Mejia MD (06/03/2018 3:28 PM) [facility]
== END | disposition home or self-care (01) ==
LOC: RAD 14:36
PROVIDERS: ATTEND Nurse Practitioner
DX: J44.9 Chronic obstructive pulmonary disease, unspecified (principal); I13.10 Hypertensive heart and chronic kidney disease without heart failure, with stage 1 through stage 4 chronic kidney disease, or unspecified chronic kidney disease; E11.22 Type 2 diabetes mellitus with diabetic chronic kidney disease; N18.3 Chronic kidney disease, stage 3 (moderate); E78.00 Pure hypercholesterolemia, unspecified; E78.5 Hyperlipidemia, unspecified; E87.5 Hyperkalemia; E87.6 Hypokalemia; K21.9 Gastro-esophageal reflux disease without esophagitis; Z79.4 Long term (current) use of insulin; Z86.2 Personal history of diseases of the blood and blood-forming organs and certain disorders involving the immune mechanism; Z86.73 Personal history of transient ischemic attack (TIA), and cerebral infarction without residual deficits; Z87.448 Personal history of other diseases of urinary system; Z72.0 Tobacco use; Z82.49 Family history of ischemic heart disease and other diseases of the circulatory system
CPT/HCPCS: 71046

== ENCOUNTER 2019-09-14 03:38 | Inpatient (IN) | payer MEDICAID, OTHER ==
[~2019-09-14] VITALS: Ht 172.7 cm; Wt 117.9 kg
[~2019-09-14 03:38] MED LIST changes: -AMLO10TA6 PO; +AMLO10TA8 PO; -HYDR-2758 PO; +HYDR-2761 PO; -HYDR-2766 PO; +HYDR-2769 PO; +HYDR-3164 PO; -HYDR-971 PO
[2019-09-14] MEDS ORDERED: NITROGLYCERIN SUBLINGUAL 0.4 MG BOTTLE OF 25. SL PRN ×2 (03:45→05:15)
--- NOTE | 2019-09-14 03:56 | PHYS DOC ---
Past Medical History Past Medical History: Diabetes-Type II, High Cholesterol, Hypertension, Pancreatitis, Renal Disease, Vascular Disease Additional Past Medical Histor: CHRONIC KIDNEY DISEASE, neuropathy, prostate Past Surgical History: Other Additional Past Surgical Histo: HERNIA REPAIR, R leg bypass Alcohol Use: Occasionally Drug Use: Cocaine The HEART Score for CP Pts HEART Score for Chest Pain: HEART Score for Chest Pain Response (Comments) Value History Slighlty/Non-Suspicious 0 ECG Nonspecific Repolarizatio 1 Age >45 - < 65 1 Risk Factors >3 Risk Factors or Hx CAD 2 Troponin >1-<3x Normal Limit 1 Total 5 Risk Factors: Risk Factors: DM, Current or recent (<one month) smoker, HTN, HLP, family history of CAD, obesity. Risk Scores: Score 0 - 3: 2.5% MACE over next 6 weeks - Discharge Home Score 4 - 6: 20.3% MACE over next 6 weeks - Admit for Clinical Observation Score 7 - 10: 72.7% MACE over next 6 weeks - Early Invasive Strategies Adult General Chief Complaint Chief Complaint: CHEST PAIN HPI HPI 54-year-old male presents to the emergency Department complaints of left-sided chest pain, shortness of breath. This started approximately 1 hour ago. Patient is well describes generalized abdominal pain. He denies any nausea or vomiting. Patient has a history of cardiac the, hypertension, diabetes, pulmonary hypertension. Patient admits to cocaine 2 days ago, he occasionally drinks alcohol. Nothing makes his pain worse or better on exam. Patient denies any headache, visual change. Review of Systems Review of Systems Constitutional: Denies fever or chills [] Respiratory: + sob Cardiovascular: No additional information not addressed in HPI [] GI: + abdominal pain, no nausea, vomiting, bloody stools or diarrhea [] : Denies dysuria or hematuria [] Integument: Denies rash or skin lesions [] Neurologic: Denies headache, focal weakness or sensory changes [] All other systems were reviewed and found to be within normal limits, except as documented in this note. Current Medications Current Medications Current Medications Medications (Trade) Dose Ordered Sig/Kiera Start Time Stop Time Status Last Admin Dose Admin Morphine Sulfate (Morphine Sulfate) 2 mg 1X ONCE 09/14/19 04:30 09/14/19 04:31 DC 09/14/19 04:34 2 MG Nitroglycerin (Nitrostat) 0.4 mg PRN Q5MIN PRN 12/30/19 03:45 09/15/19 03:44 Potassium Chloride (Klor-Con) 40 meq 1X ONCE 09/14/19 05:00 09/14/19 05:01 Sodium Chloride 1,000 ml @ 1,000 mls/hr 1X ONCE 09/14/19 05:00 09/14/19 05:59 09/14/19 04:49 1,000 MLS/HR Allergies Allergies Allergies Coded Allergies Type Severity Reaction Last Updated Verified Sulfa (Sulfonamide Antibiotics) Allergy Intermediate Rash 08/05/16 Yes Physical Exam Physical Exam Constitutional: Well developed, well nourished, no acute distress, non-toxic appearance. [] HENT: Normocephalic, atraumatic, bilateral external ears normal, oropharynx moist, no oral exudates, nose normal. [] Eyes: PERRLA, EOMI, conjunctiva normal, no discharge. [] Cardiovascular:Heart rate regular rhythm, no murmur [] Lungs & Thorax: Bilateral breath sounds clear to auscultation [] Abdomen: Bowel sounds normal, soft, no tenderness, no masses, no pulsatile masses. [] Skin: Warm, dry, no erythema, no rash. [] Back: No tenderness, no CVA tenderness. [] Extremities: No tenderness,no edema. [] Neurologic: Alert and oriented X 3, no focal deficits noted. [] Psychologic: Affect normal, judgement normal, mood normal. [] Current Patient Data Vital Signs Vital Signs Date Time Temp Pulse Resp B/P (MAP) Pulse Ox O2 Delivery O2 Flow Rate FiO2 09/14/19 04:34 93 09/14/19 03:38 97.4 70 20 142/62 (88) Room Air 97.4 Lab Values Laboratory Tests Test 09/14/19 04:05 White Blood Count 5.4 x10^3/uL (4.0-11.0) Red Blood Count 4.03 x10^6/uL (4.30-5.70) L Hemoglobin 11.1 g/dL (13.0-17.5) L Hematocrit 34.0 % (39.0-53.0) L Mean Corpuscular Volume 84 fL (79-100) Mean Corpuscular Hemoglobin 28 pg (25-35) Mean Corpuscular Hemoglobin Concent 33 g/dL (31-37) Red Cell Distribution Width 15.1 % (11.5-14.5) H Platelet Count 278 x10^3/uL (140-400) Neutrophils (%) (Auto) 60 % (31-73) Lymphocytes (%) (Auto) 29 % (24-48) Monocytes (%) (Auto) 7 % (0-9) Eosinophils (%) (Auto) 2 % (0-3) Basophils (%) (Auto) 1 % (0-3) Neutrophils # (Auto) 3.3 x10^3/uL (1.8-7.7) Lymphocytes # (Auto) 1.6 x10^3/uL (1.0-4.8) Monocytes # (Auto) 0.4 x10^3/uL (0.0-1.1) Eosinophils # (Auto) 0.1 x10^3/uL (0.0-0.7) Basophils # (Auto) 0.1 x10^3/uL (0.0-0.2) Sodium Level 141 mmol/L (136-145) Potassium Level 3.3 mmol/L (3.5-5.1) L Chloride Level 105 mmol/L (98-107) Carbon Dioxide Level 26 mmol/L (21-32) Anion Gap 10 (6-14) Blood Urea Nitrogen 37 mg/dL (8-26) H Creatinine 2.4 mg/dL (0.7-1.3) H Estimated GFR (Cockcroft-Gault) 34.2 BUN/Creatinine Ratio 15 (6-20) Glucose Level 128 mg/dL (70-99) H Calcium Level 8.9 mg/dL (8.5-10.1) Magnesium Level 1.7 mg/dL (1.8-2.4) L Total Bilirubin 0.2 mg/dL (0.2-1.0) Aspartate Amino Transferase (AST) 11 U/L (15-37) L Alanine Aminotransferase (ALT) 8 U/L (16-63) L Alkaline Phosphatase 81 U/L (46-116) Troponin I Quantitative 0.026 ng/mL (0.000-0.055) TU-Gqx-M-Type Natriuretic Peptide 5864 pg/mL (0-124) H Total Protein 7.1 g/dL (6.4-8.2) Albumin 2.7 g/dL (3.4-5.0) L Albumin/Globulin Ratio 0.6 (1.0-1.7) L Lipase 483 U/L (73-393) H Laboratory Tests 09/14/19 04:05 Laboratory Tests 09/14/19 04:05 EKG EKG EKG reviewed, interpreted time 0 345, no STEMI, normal sinus rhythm 66, normal axis[] Radiology/Procedures Radiology/Procedures [] Course & Med Decision Making Course & Med Decision Making Pertinent Labs and Imaging studies reviewed. (See chart for details) []54-year-old male presents to the emergency Department complaints of left-sided chest pain, shortness of breath. This started approximately 1 hour ago. Patient is well describes generalized abdominal pain. He denies any nausea or vomiting. Patient has a history of cardiac the, hypertension, diabetes, pulmonary hypertension. Patient admits to cocaine 2 days ago, he occasionally drinks alc ohol. Nothing makes his pain worse or better on exam. Patient denies any headache, visual change. Well'ss Score for PE - low risk ASA provided by EMS Labs/Imaging reviewed EKG without evidence of STEMI, V5/V6 with ST depression Laboratory values reviewed potassium 3.3, magnesium 1.7, creatinine 2.4, lipase 483, BNP 6000, troponin 0.0-6 CXR Reveals evidence of left pleural effusion Given no baseline for laboratory studies since 2017 and patient's heart score of 5 plan for admit. Replacement of electrolytes in the emergency department. Will consult cardiology for further evaluation She was provided with 500 mL of normal saline given mild elevation of lipase Recommend Lasix 40 mg IV 1 Plan to trend cardiac enzymes with further cardiology consultation Dragstephan Disclaimer Dragon Disclaimer This electronic medical record was generated, in whole or in part, using a voice recognition dictation system. Departure Departure Impression: Primary Impression: Chest pain Additional Impressions: Elevated brain natriuretic peptide (BNP) level Hypokalemia Hypomagnesemia Pleural effusion Hypertension CKD (chronic kidney disease) stage 3, GFR 30-59 ml/min Disposition: ADMITTED INPATIENT Admitting Physician: AMRITA Condition: STABLE Referrals: NIXON MURRAY JR, MD (PCP) Problem Qualifiers Primary Impression: Chest pain Chest pain type: unspecified Qualified Codes: R07.9 - Chest pain, unspecified Additional Impressions: Hypertension Hypertension type: essential hypertension Qualified Codes: I10 - Essential (primary) hypertension HERRERA PRADO MD Sep 14, 2019 03:56
[2019-09-14 04:25] LABS: BASO # 0.1 x10^3/uL (0.0-0.2); BASO % 1 % (0-3); EOS # 0.1 x10^3/uL (0.0-0.7); EOS % 2 % (0-3); HEMOGLOBIN 11.1 g/dL (13.0-17.5); LYMPH # 1.6 x10^3/uL (1.0-4.8); LYMPH % 29 % (24-48); MEAN CORPUSCULAR HEMOGLOBIN 28 pg (25-35); MEAN CORPUSCULAR HGB CONC 33 g/dL (31-37); MEAN CORPUSCULAR VOLUME 84 fL (79-100); MONO # 0.4 x10^3/uL (0.0-1.1); MONO % 7 % (0-9); NEUT # 3.3 x10^3/uL (1.8-7.7); NEUT % 60 % (31-73); PLATELET COUNT 278 x10^3/uL (140-400); RED BLOOD COUNT 4.03 x10^6/uL (4.30-5.70); RED CELL DISTRIBUTION WIDTH 15.1 % (11.5-14.5); WHITE BLOOD COUNT 5.4 x10^3/uL (4.0-11.0)
[2019-09-14] MEDS ORDERED: MORPHINE SULFATE 2 MG/ML VIAL. IV ONE (04:30)
[2019-09-14 04:36] LABS: CALCIUM 8.9 mg/dL (8.5-10.1); CREATININE 2.4 mg/dL (0.7-1.3); GFR 34.2; POTASSIUM 3.3 mmol/L (3.5-5.1)
[2019-09-14 04:42] LABS: ALBUMIN 2.7 g/dL (3.4-5.0); ALBUMIN/GLOBULIN RATIO 0.6 (1.0-1.7); MAGNESIUM 1.7 mg/dL (1.8-2.4); TOTAL BILIRUBIN 0.2 mg/dL (0.2-1.0); TOTAL PROTEIN 7.1 g/dL (6.4-8.2)
[2019-09-14] MEDS ORDERED: POTASSIUM CHLORIDE 20 MEQ TABLET.ER. PO ONE (05:00)
[2019-09-14] MEDS ORDERED: IV NORMAL SALINE 1000ML BAG 1,000 ML IV ONE (05:00)
[2019-09-14] MEDS ORDERED: ONDANSETRON PF 4 MG/2 ML VIAL. IV PRN (05:15)
[2019-09-14] MEDS ORDERED: ACETAMINOPHEN 325 MG TABLET. PO PRN (05:15)
[2019-09-14] MEDS ORDERED: MAGNESIUM SULFATE 2GM 50 ML IV ONE (05:45)
[2019-09-14] MEDS ORDERED: IV DEXTROSE 5% 250 ML BAG. IV PRN ×2 (07:30→16:45)
[2019-09-14] MEDS ORDERED: DEXTROSE 50% 25 GM / 50ML DISP.SYRIN. IV PRN ×2 (07:30→16:45)
[2019-09-14] MEDS ORDERED: METOCLOPRAMIDE 10 MG TABLET. PO PRN (07:30)
--- NOTE | 2019-09-14 07:33 | PDOC1 ---
History and Physical Date of Admission Date of Admission DATE: 09/14/19 TIME: 07:25 Identification/Chief Complaint Chief Complaint Chest pain Source Source: Patient History of Present Illness History of Present Illness Mr Moran is a 54yo M w/ PMHx Diabetes-Type II, High Cholesterol, Hypertension, Pancreatitis, Chronic Renal Disease, Vascular Disease who c/o le ft-sided chest pain, shortness of breath. This started approximately 1 hour prior to ED presentation. Patient is well describes generalized abdominal pain. He denies any nausea or vomiting. Patient has a history of cardiac the, hypertension, diabetes, pulmonary hypertension. Patient admits to cocaine 2 days prior to admit, he occasionally drinks alcohol. Nothing makes his pain worse or better on exam. Patient denies any headache, visual change. EKG NSR, CXR clear. Labs Na 141, K 3.3, BUN 37, Cr 2.4, Glucose 128, Hb 11.1, Troponin 0.026, BNP 5864, Lipase 483. He states he cannot tolerate NTG. He ate breakfast and now has some abdominal pain in addition to left sided dull chest pain. He is requesting morphine IV. Past Medical History Cardiovascular: HTN, Hyperlipidemia Pulmonary: Asthma, Pneumonia CENTRAL NERVOUS SYSTEM: CVA Musculoskeletal: low back pain Renal/: Benign prostatic enlarg. Endocrine: Diabetes Past Surgical History Past Surgical History: Hernia Repair Family History Family History: Cancer, Hypertension Social History Smoke: 1 pack per day ALCOHOL: social Drugs: Cocaine, Marijuana Current Problem List Problem List Problems Medical Problems: (1) Chest pain Status: Acute (2) CKD (chronic kidney disease) stage 3, GFR 30-59 ml/min Status: Acute (3) Elevated brain natriuretic peptide (BNP) level Status: Acute (4) Hypertension Status: Acute (5) Hypokalemia Status: Acute (6) Hypomagnesemia Status: Acute (7) Pleural effusion Status: Acute Current Medications Current Medications Current Medications Nitroglycerin (Nitrostat) 0.4 mg PRN Q5MIN PRN SL CP RATING > 1/10; Start 09/14/19 at 03:45; Stop 09/14/19 at 05:05; Status DC Morphine Sulfate (Morphine Sulfate) 2 mg 1X ONCE IV Last administered on 09/14/19at 04:34; Start 09/14/19 at 04:30; Stop 09/14/19 at 04:31; Status DC Potassium Chloride (Klor-Con) 40 meq 1X ONCE PO Last administered on 09/14/19at 05:50; Start 09/14/19 at 05:00; Stop 09/14/19 at 05:01; Status DC Sodium Chloride 1,000 ml @ 1,000 mls/hr 1X ONCE IV Last administered on 09/14/19at 04:49; Start 09/14/19 at 05:00; Stop 09/14/19 at 05:59; Status DC Ondansetron HCl (Zofran) 4 mg PRN Q8HRS PRN IV NAUSEA/VOMITING; Start 09/14/19 at 05:15; Stop 09/15/19 at 05:14 Morphine Sulfate (Morphine Sulfate) 2 mg PRN Q2HR PRN IV PAIN; Start 09/14/19 at 05:15; Stop 09/15/19 at 05:14 Acetaminophen (Tylenol) 650 mg PRN Q4HRS PRN PO FEVER; Start 09/14/19 at 05:15; Stop 09/15/19 at 05:14 Nitroglycerin (Nitrostat) 0.4 mg PRN Q5MIN PRN SL CHEST PAIN; Start 09/14/19 at 05:15; Stop 09/15/19 at 05:14 Magnesium Sulfate 50 ml @ 25 mls/hr 1X ONCE IV Last administered on 09/14/19at 05:50; Start 09/14/19 at 05:45; Stop 09/14/19 at 07:44 Active Scripts Active Augmentin 875-125 Tablet (Amoxicillin/Potassium Clav) 1 Each Tablet 1 Tab PO BID Pickerel 5-325 Tablet (Acetaminophen/Hydrocodone Bitart) 1 Each Tablet 1 Tab PO Q6HRS PRN Reglan (Metoclopramide Hcl) 10 Mg Tablet 1 Tab PO TID PRN Flomax (Tamsulosin Hcl) 0.4 Mg Cap.er.24h 0.4 Mg PO DAILY Levemir Flextouch (Insulin Detemir) 100 Unit/1 Ml Insuln.pen 65 Units SQ QHS 30 Days Hydrocodone-Apap 10-325 (Hydrocodone Bit/Acetaminophen) 1 Each Tablet 1 Tab PO PRN Q4HRS PRN Children's Aspirin (Aspirin) 81 Mg Tab.chew 81 Mg PO DAILYWBKFT Reported Nexium Capsule (Esomeprazole Magnesium) 40 Mg Capsule.dr 1 Cap PO DAILY Amlodipine Besylate 10 Mg Tablet 10 Mg PO DAILY Ranitidine Hcl 150 Mg Capsule 1 Cap PO DAILY Doxazosin Mesylate 4 Mg Tablet 1 Tab PO DAILY Nicotine Patch (Nicotine) 1 Each Patch.td24 1 Patch TP DAILY Diovan (Valsartan) 320 Mg Tablet 320 Mg PO DAILY Crestor (Rosuvastatin Calcium) 20 Mg Tablet 20 Mg PO QHS Levemir Flexpen (Insulin Detemir) 100 Unit/1 Ml Insuln.pen 50 Unit SQ HS Novolog Flexpen (Insulin Aspart) 100 Unit/1 Ml Insuln.pen 20 Unit SQ TIDAC Allergies Allergies: Coded Allergies: Sulfa (Sulfonamide Antibiotics) (Verified Allergy, Intermediate, Rash, 08/05/16) ROS General: YES: Fatigue, Malaise, Appetite; No: Chills, Night Sweats, Other PSYCHOLOGICAL ROS: YES: Anxiety; No: Behavioral Disorder, Concentration difficultie, Decreased libido, Depression, Disorientation, Hallucinations, Hostility, Irritablity, Memory difficulties, Mood Swings, Obsessive thoughts, Physical abuse, Sexual abuse, Sleep disturbances, Suicidal ideation, Other Eyes: No Blurry vision, No Decreased vision, No Double vision, No Dry eyes, No Excessive tearing, No Eye Pain, No Itchy Eyes, No Loss of vision, No Photophobia, No Scotomata, No Uses contacts, No Uses glasses, No Other HEENT: YES: Heacaches; No: Visual Changes, Hearing change, Nasal congestion, Nasal discharge, Oral lesions, Sinus pain, Sore Throat, Epistaxis, Sneezing, Snoring, Tinnitus, Vertigo, Vocal changes, Other ALLERGY AND IMMUNOLOGY: No: Hives, Insect Bite Sensitivity, Itchy/Watery Eyes, Nasal Congestion, Post Nasal Drip, Seasonal Allergies, Other Hematological and Lymphatic: No: Bleeding Problems, Blood Clots, Blood Transfusions, Brusing, Night Sweats, Pallor, Swollen Lymph Nodes, Other ENDOCRINE: No: Breast Changes, Galactorrhea, Hair Pattern Changes, Hot Flashes, Malaise/lethargy, Mood Swings, Palpitations, Polydipsia/polyuria, Skin Changes, Temperature Intolerance, Unexpected Weight Changes, Other Breast: No New/Changing Breast Lumps, No Nipple changes, No Nipple discharge, No Other Respiratory: No: Cough, Hemoptysis, Orthopnea, Pleuritic Pain, Shortness of breath, SOB with excertion, Sputum Changes, Stridor, Tachypnea, Wheezing, Other Cardiovascular: yes Chest Pain; No Palpitations, No Orthopnea, No Paroxysmal Noc. Dyspnea, No Edema, No Lt Headedness, No Other Gastrointestinal: Yes Nausea, Yes Abdominal Pain; No Vomiting, No Diarrhea, No Constipation, No Melena, No Hematochezia, No Other Genitourinary: No Dysuria, No Frequency, No Incontinence, No Hematuria, No Retention, No Discharge, No Urgency, No Pain, No Flank Pain, No Other, No , No , No , No , No , No , No Musculoskeletal: No Gait Disturbance, No Joint Pain, No Joint Stiffness, No Joint Swelling, No Muscle Pain, No Muscular Weakness, No Pain In:, No Swelling In:, No Other Neurological: No Behavorial Changes, No Bowel/Bladder ControlChng, No Confusion, No Dizziness, No Gait Disturbance, No Headaches, No Impaired Coord/balance, No Memory Loss, No Numbness/Tingling, No Seizures, No Speech Problems, No Tremors, No Visual Changes, No Weakness, No Other Skin: No Dry Skin, No Eczema, No Hair Changes, No Lumps, No Mole Changes, No Mottling, No Nail Changes, No Pruritus, No Rash, No Skin Lesion Changes, No Other, No Acne Physical Exam General: Alert, Oriented X3, Cooperative, mild distress HEENT: Atraumatic, PERRLA, EOMI, Mucous membr. moist/pink Lungs: Clear to auscultation, Normal air movement Heart: S1S2, RRR, no thrills, no rubs, no gallops, no murmurs Abdomen: Normal bowel sounds, Soft, No hepatosplenomegaly, No masses, Other (mild epigastric tenderness) Rectal Exam: not examined Extremities: No clubbing, No cyanosis, No edema, Normal pulses, No tenderness/swelling Skin: No rashes, No breakdown, No significant lesion Neuro: Normal gait, Normal speech, Strength at 5/5 X4 ext, Normal tone, Sensation intact, Cranial nerves 3-12 NL, Reflexes 2+ Psych/Mental Status: Mental status NL, Mood NL Vitals Vitals Vital Signs Date Time Temp Pulse Resp B/P (MAP) Pulse Ox O2 Delivery O2 Flow Rate FiO2 09/14/19 05:30 65 18 118/51 (73) 98 Room Air 09/14/19 03:38 97.4 97.4 Labs Labs Laboratory Tests Test 09/14/19 04:05 White Blood Count 5.4 x10^3/uL (4.0-11.0) Red Blood Count 4.03 x10^6/uL (4.30-5.70) Hemoglobin 11.1 g/dL (13.0-17.5) Hematocrit 34.0 % (39.0-53.0) Mean Corpuscular Volume 84 fL (79-100) Mean Corpuscular Hemoglobin 28 pg (25-35) Mean Corpuscular Hemoglobin Concent 33 g/dL (31-37) Red Cell Distribution Width 15.1 % (11.5-14.5) Platelet Count 278 x10^3/uL (140-400) Neutrophils (%) (Auto) 60 % (31-73) Lymphocytes (%) (Auto) 29 % (24-48) Monocytes (%) (Auto) 7 % (0-9) Eosinophils (%) (Auto) 2 % (0-3) Basophils (%) (Auto) 1 % (0-3) Neutrophils # (Auto) 3.3 x10^3/uL (1.8-7.7) Lymphocytes # (Auto) 1.6 x10^3/uL (1.0-4.8) Monocytes # (Auto) 0.4 x10^3/uL (0.0-1.1) Eosinophils # (Auto) 0.1 x10^3/uL (0.0-0.7) Basophils # (Auto) 0.1 x10^3/uL (0.0-0.2) Sodium Level 141 mmol/L (136-145) Potassium Level 3.3 mmol/L (3.5-5.1) Chloride Level 105 mmol/L (98-107) Carbon Dioxide Level 26 mmol/L (21-32) Anion Gap 10 (6-14) Blood Urea Nitrogen 37 mg/dL (8-26) Creatinine 2.4 mg/dL (0.7-1.3) Estimated GFR (Cockcroft-Gault) 34.2 BUN/Creatinine Ratio 15 (6-20) Glucose Level 128 mg/dL (70-99) Calcium Level 8.9 mg/dL (8.5-10.1) Magnesium Level 1.7 mg/dL (1.8-2.4) Total Bilirubin 0.2 mg/dL (0.2-1.0) Aspartate Amino Transf (AST/SGOT) 11 U/L (15-37) Alanine Aminotransferase (ALT/SGPT) 8 U/L (16-63) Alkaline Phosphatase 81 U/L (46-116) Troponin I Quantitative 0.026 ng/mL (0.000-0.055) VP-Kos-V-Type Natriuretic Peptide 5864 pg/mL (0-124) Total Protein 7.1 g/dL (6.4-8.2) Albumin 2.7 g/dL (3.4-5.0) Albumin/Globulin Ratio 0.6 (1.0-1.7) Lipase 483 U/L (73-393) Laboratory Tests Test 09/14/19 04:05 White Blood Count 5.4 x10^3/uL (4.0-11.0) Red Blood Count 4.03 x10^6/uL (4.30-5.70) Hemoglobin 11.1 g/dL (13.0-17.5) Hematocrit 34.0 % (39.0-53.0) Mean Corpuscular Volume 84 fL (79-100) Mean Corpuscular Hemoglobin 28 pg (25-35) Mean Corpuscular Hemoglobin Concent 33 g/dL (31-37) Red Cell Distribution Width 15.1 % (11.5-14.5) Platelet Count 278 x10^3/uL (140-400) Neutrophils (%) (Auto) 60 % (31-73) Lymphocytes (%) (Auto) 29 % (24-48) Monocytes (%) (Auto) 7 % (0-9) Eosinophils (%) (Auto) 2 % (0-3) Basophils (%) (Auto) 1 % (0-3) Neutrophils # (Auto) 3.3 x10^3/uL (1.8-7.7) Lymphocytes # (Auto) 1.6 x10^3/uL (1.0-4.8) Monocytes # (Auto) 0.4 x10^3/uL (0.0-1.1) Eosinophils # (Auto) 0.1 x10^3/uL (0.0-0.7) Basophils # (Auto) 0.1 x10^3/uL (0.0-0.2) Sodium Level 141 mmol/L (136-145) Potassium Level 3.3 mmol/L (3.5-5.1) Chloride Level 105 mmol/L (98-107) Carbon Dioxide Level 26 mmol/L (21-32) Anion Gap 10 (6-14) Blood Urea Nitrogen 37 mg/dL (8-26) Creatinine 2.4 mg/dL (0.7-1.3) Estimated GFR (Cockcroft-Gault) 34.2 BUN/Creatinine Ratio 15 (6-20) Glucose Level 128 mg/dL (70-99) Calcium Level 8.9 mg/dL (8.5-10.1) Magnesium Level 1.7 mg/dL (1.8-2.4) Total Bilirubin 0.2 mg/dL (0.2-1.0) Aspartate Amino Transf (AST/SGOT) 11 U/L (15-37) Alanine Aminotransferase (ALT/SGPT) 8 U/L (16-63) Alkaline Phosphatase 81 U/L (46-116) Troponin I Quantitative 0.026 ng/mL (0.000-0.055) UF-Jyf-B-Type Natriuretic Peptide 5864 pg/mL (0-124) Total Protein 7.1 g/dL (6.4-8.2) Albumin 2.7 g/dL (3.4-5.0) Albumin/Globulin Ratio 0.6 (1.0-1.7) Lipase 483 U/L (73-393) Images Images CXR - Heart size appears enlarged but this is likely in part technique related. Pulmonary vasculature is slightly congested. No pneumothorax. No definite effusion. Bony structures are unremarkable. Impression: Mild congestive heart failure. No infiltrate. VTE Prophylaxis Ordered VTE Prophylaxis Devices: No VTE Pharmacological Prophylaxi: Yes Assessment/Plan Assessment/Plan A/P: Chest pain - multifactorial, likely cocaine induced coronary vasospasm, however, he has a number of other risk factors including CKD, DM2. Trend troponins, telemetry, consult cardiology Elevated brain natriuretic peptide (BNP) level - likely 2/2 some congestion, pulmonary HTN Pulmonary HTN - multifactorial likely from cocaine abuse, possible underlying COPD or CHF. His WHO classification is tough to delineate without echo and RHC information Pleural effusion - likely CHF related Acute CHF - likely diastolic, cardiology to see MARQUISE on CKD - baseline Cr 1.3, now 2.4 Hypokalemia - will replace Hypomagnesemia - will replace Hypertension - needs better management Cocaine abuse - counseled. PAT team to see DM2 - last A1c 9.7, will place on basal bolus plus insulin regimen Pancreatitis - likely cocaine induced vs ETOH induced. NPO preferred given his abdominal pain FEN - NPO PPX - heparin FULL CODE Dispo - inpatient for acute chest pain CASTILLO NICK MD Sep 14, 2019 07:32
--- NOTE | 2019-09-14 07:45 | EKG ---
[facility] [address] [place] [address] Test Date: 2019-09-14 Test Time: 04:34:24 Pat Name: HAILEY MOREIRA Department: Room: Gender: M Slagger: : 1965 Requested By: HERRERA PRADO Order Number: [id number] Reading MD: Measurements Intervals Juliette Rate: 67 P: 170 NJ: 228 QRS: 46 QRSD: 82 T: -120 QT: 408 QTc: 434 Interpretive Statements SINUS RHYTHM PROLONGED [place] INTERVAL T ABNORMALITY IN ANTEROLATERAL LEADS INFEROLATERAL LEADS NON SPECIFIC ST-T ABNORMALITY (ELEVATION) NON SPECIFIC ST DEPRESSION ABNORMAL ECG No previous ECG available for comparison
[2019-09-14] MEDS: INSULIN LISPRO 300 UNITS/3 ML VIAL. SQ SCH ×4 (08:00→21:06)
[2019-09-14 08:06] VITALS: BP 162/64
[2019-09-14] MEDS: PANTOPRAZOLE 40 MG TABLET.DR. PO SCH (08:08)
[2019-09-14] MEDS: TAMSULOSIN 0.4 MG CAP.ER.24H. PO SCH (08:08)
[2019-09-14] MEDS: ASPIRIN CHEWABLE 81 MG TABLET. PO SCH (08:09)
[2019-09-14] MEDS: DOXAZOSIN MESYLATE 4 MG TABLET. PO SCH (08:09)
[2019-09-14] MEDS: amLODIPine BESYLATE 10 MG TABLET PO SCH (08:09)
[2019-09-14] MEDS: NICOTINE 14MG PATCH. TD SCH (08:09)
[2019-09-14] MEDS: MORPHINE SULFATE 2 MG/ML VIAL. IV PRN ×5 (08:10→23:53)
--- NOTE | 2019-09-14 08:21 | RAD ---
Examination: PORTABLE CHEST 1V History: Chest pain. Shortness of breath. Comparison/Correlation: 06/03/2018 two-view chest x-ray exam Findings: Portable upright frontal view of chest was obtained. Heart size appears enlarged but this is likely in part technique related. Pulmonary vasculature is slightly congested. No pneumothorax. No definite effusion. Bony structures are unremarkable. Impression: Mild congestive heart failure. No infiltrate. Electronically signed by: Bobo Briceno MD (09/14/2019 8:18 AM) [facility]
[2019-09-14] MEDS ORDERED: LIDO:MAALOX 1:1 20 ML SINGLE DOSE. SWSW ONE (10:00)
[2019-09-14 11:31] VITALS: BP 144/63
--- NOTE | 2019-09-14 12:08 | PDOC2 ---
CARDIAC CONSULT DATE OF CONSULT Date of Consult DATE: 09/14/19 TIME: 12:02 REASON FOR CONSULT Reason for Consult: Chest pain REFERRING PHYSICIAN Referring Physician: Dr. Graff SOURCE Source: Chart review, Patient HISTORY OF PRESENT ILLNESS HISTORY OF PRESENT ILLNESS This is a 54 yo male who presented secondary to shortness of breath and chest pain. Patient reports symptoms began about 3 am this morning. Woke up short of breath and had stabbing pain in his left chest. No associated dizziness, diaphoresis, or nausea/vomiting. Has had some mild LE edema. Cardiac history noted below. Has been seen at both and [facility] multiple time within the last 6 months. Has appointment to establish care with assistant passenger locomotive engineer at [facility]. Continue to have pain in his left chest. Breathing has improved overall. PAST MEDICAL HISTORY Cardiovascular: CHF, HTN, Hyperlipidemia, Other (PAD) Pulmonary: COPD, Pneumonia, Other (ROXANNE) CENTRAL NERVOUS SYSTEM: CVA, Periperal neuropathy GI: GERD Musculoskeletal: Osteoarthritis Renal/: Chronic renal insuff, Benign prostatic enlarg. Endocrine: Diabetes PAST SURGICAL HISTORY Past Surgical History: Cholecystectomy, Hernia Repair SOCIAL HISTORY Drugs: Cocaine CURRENT MEDICATIONS CURRENT MEDICATIONS Current Medications Medications (Trade) Dose Ordered Sig/Kiera Route PRN Reason Start Time Stop Time Status Last Admin Dose Admin Morphine Sulfate (Morphine Sulfate) 2 mg 1X ONCE IV 09/14/19 04:30 09/14/19 04:31 DC 09/14/19 04:34 Potassium Chloride (Klor-Con) 40 meq 1X ONCE PO 09/14/19 05:00 09/14/19 05:01 DC 09/14/19 05:50 Sodium Chloride 1,000 ml @ 1,000 mls/hr 1X ONCE IV 09/14/19 05:00 09/14/19 05:59 DC 09/14/19 04:49 Morphine Sulfate (Morphine Sulfate) 2 mg PRN Q2HR PRN IV PAIN 09/14/19 05:15 09/15/19 05:14 09/14/19 08:10 Magnesium Sulfate 50 ml @ 25 mls/hr 1X ONCE IV 09/14/19 05:45 09/14/19 07:44 DC 09/14/19 05:50 Amlodipine Besylate (Norvasc) 10 mg DAILY PO 09/14/19 09:00 09/14/19 08:09 Aspirin (Children'S Aspirin) 81 mg DAILYWBKFT PO 09/14/19 08:00 09/14/19 08:09 Doxazosin Mesylate (Cardura) 4 mg DAILY PO 09/14/19 09:00 09/14/19 08:09 Tamsulosin HCl (Flomax) 0.4 mg DAILY PO 09/14/19 09:00 09/14/19 08:08 Pantoprazole Sodium (Protonix) 40 mg DAILYAC PO 09/14/19 08:00 09/14/19 08:08 Insulin Human Lispro (HumaLOG) 0-7 UNITS TIDAC SQ 09/14/19 08:00 09/14/19 12:00 Multi-Ingredient Mouthwash/Gargle (Gi Cocktail) 20 ml 1X ONCE SWSW 09/14/19 10:00 09/14/19 10:01 DC 09/14/19 10:06 ALLERGIES ALLERGIES: Coded Allergies: Sulfa (Sulfonamide Antibiotics) (Verified Allergy, Intermediate, Rash, 08/05/16) ROS Review of System 14 point ROS conducted with pertinent positives noted above in HPI. PHYSICAL EXAM General: Alert, Oriented X3, Cooperative, No acute distress HEENT: Atraumatic Lungs: Other (left chest tenderness upon palpitaiton, diminished bases ) Heart: Regular rate, Normal S1, Normal S2 Abdomen: Soft, No tenderness Extremities: Normal pulses, Other (trace bilateral LE edema ) Skin: No significant lesion Neuro: Normal speech, Sensation intact Psych/Mental Status: Mental status NL, Mood NL MUSCULOSKELETAL: Osteoarthritic changes both hands VITALS/I&O VITALS/I&O: Vital Signs Date Time Temp Pulse Resp B/P (MAP) Pulse Ox O2 Delivery O2 Flow Rate FiO2 09/14/19 11:31 98.4 77 18 144/63 (90) 94 Room Air 98.4 LABS Lab: Laboratory Tests Test 09/14/19 04:05 09/14/19 08:11 White Blood Count 5.4 x10^3/uL (4.0-11.0) Red Blood Count 4.03 x10^6/uL (4.30-5.70) L Hemoglobin 11.1 g/dL (13.0-17.5) L Hematocrit 34.0 % (39.0-53.0) L Mean Corpuscular Volume 84 fL (79-100) Mean Corpuscular Hemoglobin 28 pg (25-35) Mean Corpuscular Hemoglobin Concent 33 g/dL (31-37) Red Cell Distribution Width 15.1 % (11.5-14.5) H Platelet Count 278 x10^3/uL (140-400) Neutrophils (%) (Auto) 60 % (31-73) Lymphocytes (%) (Auto) 29 % (24-48) Monocytes (%) (Auto) 7 % (0-9) Eosinophils (%) (Auto) 2 % (0-3) Basophils (%) (Auto) 1 % (0-3) Neutrophils # (Auto) 3.3 x10^3/uL (1.8-7.7) Lymphocytes # (Auto) 1.6 x10^3/uL (1.0-4.8) Monocytes # (Auto) 0.4 x10^3/uL (0.0-1.1) Eosinophils # (Auto) 0.1 x10^3/uL (0.0-0.7) Basophils # (Auto) 0.1 x10^3/uL (0.0-0.2) Sodium Level 141 mmol/L (136-145) Potassium Level 3.3 mmol/L (3.5-5.1) L Chloride Level 105 mmol/L (98-107) Carbon Dioxide Level 26 mmol/L (21-32) Anion Gap 10 (6-14) Blood Urea Nitrogen 37 mg/dL (8-26) H Creatinine 2.4 mg/dL (0.7-1.3) H Estimated GFR (Cockcroft-Gault) 34.2 BUN/Creatinine Ratio 15 (6-20) Glucose Level 128 mg/dL (70-99) H Calcium Level 8.9 mg/dL (8.5-10.1) Magnesium Level 1.7 mg/dL (1.8-2.4) L Total Bilirubin 0.2 mg/dL (0.2-1.0) Aspartate Amino Transferase (AST) 11 U/L (15-37) L Alanine Aminotransferase (ALT) 8 U/L (16-63) L Alkaline Phosphatase 81 U/L (46-116) Troponin I Quantitative 0.026 ng/mL (0.000-0.055) 0.020 ng/mL (0.000-0.055) LI-Soa-M-Type Natriuretic Peptide 5864 pg/mL (0-124) H Total Protein 7.1 g/dL (6.4-8.2) Albumin 2.7 g/dL (3.4-5.0) L Albumin/Globulin Ratio 0.6 (1.0-1.7) L Lipase 483 U/L (73-393) H Laboratory Tests 09/14/19 04:05 Laboratory Tests 09/14/19 04:05 ECHOCARDIOGRAM ECHOCARDIOGRAM <Conclusion> The left ventricle is normal size. The left ventricular systolic function is normal. The ejection fraction is estimated at 65%. There is moderate left ventricular hypertrophy. There is no significant aortic valvular stenosis. Doppler and Color Flow revealed no significant aortic regurgitation. Doppler and Color Flow revealed trace mitral regurgitation. Doppler and Color Flow revealed trace tricuspid regurgitation. The PA pressure was estimated at 23 mmHg. There is a trace pericardial effusion. DATE: 01/12/15 1011 <Conclusion> The left ventricle is normal size. There is severe concentric left ventricular hypertrophy. There is severe concentric left ventricular hypertrophy. Left ventricle systolic function is normal. The Ejection Fraction is 60-65%. There is a grade 2 diastolic dysfunction with pseudonormalization. There is no evidence of significant pericardial effusion. This was a limited echocardiogram to evaluate the left ventricular diastolic and systolic function. DATE: 08/30/15 1614 Normal LV size with moderate-severe concentric LVH, with slightly more prominence of the interventricular septum. Mild systolic anterior motion of the anterior mitral leaflet. No LVOT obstruction. No regional wall motion abnormalities. Grade III (severe) left ventricle diastolic dysfunction. Normal right ventricle size and qualitative systolic function Mild LA enlargement No significant valvular disease Pulmonary systolic pressure could not be accurately estimated due to lack of significant tricuspid regurgitant signal Subcostal images were non-diagnostic. No obvious effusion on parasternal or apical images. Compared with the prior echo/Doppler study on 10-10-18, there have been no significant interval changes. According to the E/A ratio of 2.[address] udy, the grade of diastolic dysfunction is unchanged. 11/25/18 - 2-D + DOPPLER ECHOCARDIOGRAM STRESS TEST STRESS TEST FINDINGS: Pharmacological Stress Electrocardiogram: The patient's resting heart rate was 68 bpm and the resting blood pressure was 159/94. The patients peak stress heart rate was 92 bpm and the peak stress blood pressure was 146/84. The patient experienced chest pain. The resting ECG shows Normal sinus rhythm with nonspecific diffuse T changes. Following Regadenoson infusion there are no new diagnostic ECG changes. Conclusion: Pharmacologic stress ECG is nondiagnostic for ischemia. HEART CATH HEART CATH Right heart cath HEMODYNAMICS: Systemic blood pressure of 127/69 mmHg with a MAP of 92 mmHg. Heart rate of 69 beats per minute. RA pressure of 33-36 mmHg with deep inspiration. However, as noted above, the patient had significant respiratory variation in all of his right heart cath tracings. RV 86/36 mmHg. PA pressure of 90/48 mmHg with a mean PA pressure of 62 mmHg. Pulmonary capillary wedge pressure of 56-58 mmHg with deep inspiration and angela ath holding. TPG of 6 mmHg. DPG of 18 mmHg. AvO2 difference of 5.03. PVR of 1 Wood unit. Cardiac output by Fabio formula 5.93 L/minute. Cardiac output by thermodilution of 5.40 L/minute. Cardiac index by Fabio formula of 2.49 L/minute per sq m. Cardiac output by thermodilution of 2.26 L/minute per sq m. AO saturation 98%. RA saturation 56%. PA saturation 59%. IMPRESSION: Significantly elevated right and left-sided filling pressures. Normal cardiac output and index. However, given patient's significant LVH and small LV chamber size, this may still be suggestive of high-output for the patient's LV dimensions. Dr. Lou was present and supervised all lopez components of the procedure himself. 10/14/2018 12:24 PM ASSESSMENT/PLAN ASSESSMENT/PLAN 1. Chest pain, atypical; AMI ruled out. Most probably MSK. Left chest tenderness upon palpitation 2. Acute on chronic diastolic CHF; multifactorial 3. MARQUISE on CKD 4. Hypomagnesemia, hypokalemia; replaced. 5. Hypertension; elevated 6. Hyperlipidemia; statin 7. PAD s/p RLE bypass 8. Diabetes, II 9. H/o CVA 10. Tobaccoism 11. ROXANNE 12. Substance abuse. + cocaine; discussed/encouraged cessation Recommendations Echo to assess LV systolic function Lipids Mild diuresis with monitoring or renal function Resume home antiHTN therapy Secondary prevention No BB with cocaine use No ACEi/ARB with MARQUISE. Add hydralazine PRN Consider outpatient stress test if compliance can be established. AGUILAR TRIPATHI APRN Sep 14, 2019 12:08
[2019-09-14] MEDS: HEPARIN for SUB-Q USE 5,000 UNIT/ML VIAL. SQ SCH ×2 (13:34→21:07)
[2019-09-14 15:13] VITALS: BP 177/39
--- NOTE | 2019-09-14 16:25 | CARD ---
MR#: [id number] Date of Study: 09/14/2019 Ordering Physician: AGUILAR TRIPATHI, Referring Physician: AGUILAR TRIPATHI, Tech: Cristina Hidalgo HUGH APPROVED REPORT EXAM: Two-dimensional and M-mode echocardiogram with Doppler and color Doppler. Other Information Quality : Technically LimitedHR: 73bpm Rhythm : NSRTechnically limited study due to body habitus. INDICATION Chest Pain 2D DIMENSIONS RVDd3.8 (2.9-3.5cm)Left Atrium(2D)5.2 (1.6-4.0cm) IVSd2.2 (0.7-1.1cm)Aortic Root(2D)3.7 (2.0-3.7cm) LVDd4.6 (3.9-5.9cm)LVOT Diameter2.6 (1.8-2.4cm) PWd1.8 (0.7-1.1cm)LVDs2.6 (2.5-4.0cm) FS (%) 43.2 %SV73.3 ml LVEF(%)70.0 (>50%) M-Mode DIMENSIONS Left Atrium(MM)4.53 (2.5-4.0cm)Aortic Root3.87 (2.2-3.7cm) Aortic Valve AoV Peak Dillon.120.1cm/sAoV VTI23.0cm AO Peak GR.5.8mmHgLVOT VTI 12.98cm AO Mean GR.3mmHgAVA (VTI)2.90cm2 Mitral Valve MV E Wcognuzr94.1cm/sMV DECEL VTGC520mz MV A Keuulexj17.4cm/sE/A Ratio0.7 MV A [id number] TDI Lateral E' P. V7.47cm/sMedial E' P. V4.91cm/s E/Lateral E'6.2E/Medial E'9.4 LEFT VENTRICLE The left ventricle is normal size. There is severe concentric left ventricular hypertrophy. The left ventricular systolic function is normal and the ejection fraction is within normal range. The Ejectio n Fraction is 65-70%. There is grossly normal LV segmental wall motion. Technically limited images. T ransmitral Doppler flow pattern is Grade I-abnormal relaxation pattern. RIGHT VENTRICLE The right ventricle is mildly dilated. There is normal right ventricular wall thickness. Cannot asses s right ventricular systolic function. ATRIA The left atrium is mildly dilated. The right atrium is not well visualized. The interatrial septum is intact with no evidence for an atrial septal defect or patent foramen ovale as noted on 2-D or Doppl er imaging. AORTIC VALVE The aortic valve is thickened but opens well. The aortic valve is trileaflet. Doppler and Color Flow revealed no significant aortic regurgitation. There is no significant aortic valvular stenosis. MITRAL VALVE The mitral valve is normal in structure and function. There is no evidence of mitral valve prolapse. There is no mitral valve stenosis. Doppler and Color-flow revealed trace mitral regurgitation. TRICUSPID VALVE The tricuspid valve is normal in structure and function. Doppler and Color Flow revealed no tricuspid valve regurgitation noted. There is no tricuspid valve prolapse or vegetation. There is no tricuspid valve stenosis. PULMONIC VALVE The pulmonic valve is not well visualized. GREAT VESSELS The aortic root is mildly enlarged. The IVC was not visualized. PERICARDIAL EFFUSION There is no evidence of significant pericardial effusion. Critical Notification Critical Value: No <Conclusion> The left ventricular systolic function is normal and the ejection fraction is within normal range. Th e Ejection Fraction is 65-70%. There is grossly normal LV segmental wall motion. Technically limited images. There is severe concentric left ventricular hypertrophy. Signed by : Damon Huerta, Electronically Approved : 09/14/2019 16:24:49
[2019-09-14 18:43] LABS: BILIRUBIN,URINE NEGATIVE (NEG); CLARITY,URINE CLEAR; COLOR,URINE YELLOW; NITRITE,URINE NEGATIVE (NEG); PROTEIN,URINE >=300 mg/dL (NEG-TRACE); UROBILINOGEN,URINE 0.2 mg/dL (0.2 mg/dL)
[2019-09-14 18:49] LABS: BACTERIA,URINE 0 /HPF (0-FEW); RBC,URINE 0 /HPF (0-2); SQUAMOUS EPITHELIAL CELL,UR OCC /LPF; WBC,URINE 0 /HPF (0-4)
[2019-09-14 18:52] LABS: BARBITURATES NEG (NEG); BENZODIAZEPINES NEG (NEG); CANNABINOIDS NEG (NEG); COCAINE POS (NEG); METHADONE NEG (NEG); OPIATES POS (NEG); PHENCYCLIDINE NEG (NEG)
[2019-09-14 18:53] LABS: AMPHETAMINE/METHAMPHETAMINE NEG (NEG)
[2019-09-14 19:15] VITALS: BP 182/82
[2019-09-14] MEDS: ATORVASTATIN CALCIUM 40 MG TABLET. PO SCH (20:57)
[2019-09-14] MEDS: INSULIN GLARGINE SYRINGE. SQ SCH (21:07)
[2019-09-14 23:00] VITALS: BP 183/75
[2019-09-15 03:20] VITALS: BP 178/64
[2019-09-15] MEDS: HEPARIN for SUB-Q USE 5,000 UNIT/ML VIAL. SQ SCH ×3 (05:39→22:00)
[2019-09-15 06:36] LABS: BASO % 1 % (0-3); EOS # 0.1 x10^3/uL (0.0-0.7); EOS % 3 % (0-3); HEMATOCRIT 32.6 % (39.0-53.0); HEMOGLOBIN 10.4 g/dL (13.0-17.5); LYMPH # 1.4 x10^3/uL (1.0-4.8); LYMPH % 34 % (24-48); MEAN CORPUSCULAR HEMOGLOBIN 27 pg (25-35); MEAN CORPUSCULAR HGB CONC 32 g/dL (31-37); MEAN CORPUSCULAR VOLUME 86 fL (79-100); MONO # 0.4 x10^3/uL (0.0-1.1); MONO % 9 % (0-9); NEUT # 2.2 x10^3/uL (1.8-7.7); NEUT % 54 % (31-73); PLATELET COUNT 244 x10^3/uL (140-400); RED BLOOD COUNT 3.82 x10^6/uL (4.30-5.70); RED CELL DISTRIBUTION WIDTH 14.8 % (11.5-14.5); WHITE BLOOD COUNT 4.1 x10^3/uL (4.0-11.0)
[2019-09-15 07:00] VITALS: BP 152/71
[2019-09-15 07:00] LABS: ALBUMIN 2.8 g/dL (3.4-5.0); ALBUMIN/GLOBULIN RATIO 0.6 (1.0-1.7); CALCIUM 8.7 mg/dL (8.5-10.1); CREATININE 2.3 mg/dL (0.7-1.3); GFR 35.9; POTASSIUM 4.3 mmol/L (3.5-5.1); TOTAL BILIRUBIN 0.2 mg/dL (0.2-1.0); TOTAL PROTEIN 7.2 g/dL (6.4-8.2)
[2019-09-15] MEDS: PANTOPRAZOLE 40 MG TABLET.DR. PO SCH (07:44)
[2019-09-15] MEDS ORDERED: FUROSEMIDE 40 MG/4 ML VIAL. IVP ONE (08:00)
[2019-09-15] MEDS: DOXAZOSIN MESYLATE 4 MG TABLET. PO SCH (08:23)
[2019-09-15] MEDS: amLODIPine BESYLATE 10 MG TABLET PO SCH (08:24)
[2019-09-15] MEDS: TAMSULOSIN 0.4 MG CAP.ER.24H. PO SCH (08:24)
[2019-09-15] MEDS: ASPIRIN CHEWABLE 81 MG TABLET. PO SCH (08:24)
[2019-09-15] MEDS: INSULIN LISPRO 300 UNITS/3 ML VIAL. SQ SCH ×6 (08:27→21:00)
[2019-09-15] MEDS: NICOTINE 14MG PATCH. TD SCH (08:29)
[2019-09-15 11:00] VITALS: BP 134/52
[2019-09-15] MEDS: HYDROcodone/APAP 5/325MG 1 TAB TABLET PO PRN (12:07)
--- NOTE | 2019-09-15 12:20 | PDOC ---
CARDIO Progress Notes Date and Time Date of Service 09/15/19 Time of Evaluation 1210 Subjective Subjective: No Palpitations, No Dizziness, Other (haivng central chest tenderness) Vitals Vitals Vital Signs Date Time Temp Pulse Resp B/P (MAP) Pulse Ox O2 Delivery O2 Flow Rate FiO2 09/15/19 12:07 Room Air 09/15/19 08:24 70 152/71 09/15/19 07:00 97.9 16 96 97.9 Weight Weight [ ] Input and Output Intake and Output Intake and Output 09/15/19 07:00 Intake Total 1280 ml Output Total 400 ml Balance 880 ml Intake Oral 1280 ml Output Urine Total 400 ml # Voids 2 Laboratory Labs Laboratory Tests Test 09/14/19 16:38 09/14/19 17:00 09/14/19 20:54 09/15/19 06:25 Glucose (Fingerstick) 412 mg/dL (70-99) 342 mg/dL (70-99) Urine Collection Type Unknown Urine Color Yellow Urine Clarity Clear Urine pH 6.0 Urine Specific Corrigan 1.015 Urine Protein >=300 mg/dL (NEG-TRACE) Urine Glucose (UA) >=1000 mg/dL (NEG) Urine Ketones (Stick) Negative mg/dL (NEG) Urine Blood Negative (NEG) Urine Nitrite Negative (NEG) Urine Bilirubin Negative (NEG) Urine Urobilinogen Dipstick 0.2 mg/dL (0.2 mg/dL) Urine Leukocyte Esterase Negative (NEG) Urine RBC 0 /HPF (0-2) Urine WBC 0 /HPF (0-4) Urine Squamous Epithelial Cells Occ /LPF Urine Bacteria 0 /HPF (0-FEW) Urine Opiates Screen Pos (NEG) Urine Methadone Screen Neg (NEG) Urine Barbiturates Neg (NEG) Urine Phencyclidine Screen Neg (NEG) Urine Amphetamine/Methamphetamine Neg (NEG) Urine Benzodiazepines Screen Neg (NEG) Urine Cocaine Screen Pos (NEG) Urine Cannabinoids Screen Neg (NEG) Urine Ethyl Alcohol Neg (NEG) White Blood Count 4.1 x10^3/uL (4.0-11.0) Red Blood Count 3.82 x10^6/uL (4.30-5.70) Hemoglobin 10.4 g/dL (13.0-17.5) Hematocrit 32.6 % (39.0-53.0) Mean Corpuscular Volume 86 fL (79-100) Mean Corpuscular Hemoglobin 27 pg (25-35) Mean Corpuscular Hemoglobin Concent 32 g/dL (31-37) Red Cell Distribution Width 14.8 % (11.5-14.5) Platelet Count 244 x10^3/uL (140-400) Neutrophils (%) (Auto) 54 % (31-73) Lymphocytes (%) (Auto) 34 % (24-48) Monocytes (%) (Auto) 9 % (0-9) Eosinophils (%) (Auto) 3 % (0-3) Basophils (%) (Auto) 1 % (0-3) Neutrophils # (Auto) 2.2 x10^3/uL (1.8-7.7) Lymphocytes # (Auto) 1.4 x10^3/uL (1.0-4.8) Monocytes # (Auto) 0.4 x10^3/uL (0.0-1.1) Eosinophils # (Auto) 0.1 x10^3/uL (0.0-0.7) Basophils # (Auto) 0.0 x10^3/uL (0.0-0.2) Sodium Level 135 mmol/L (136-145) Potassium Level 4.3 mmol/L (3.5-5.1) Chloride Level 102 mmol/L (98-107) Carbon Dioxide Level 26 mmol/L (21-32) Anion Gap 7 (6-14) Blood Urea Nitrogen 41 mg/dL (8-26) Creatinine 2.3 mg/dL (0.7-1.3) Estimated GFR (Cockcroft-Gault) 35.9 BUN/Creatinine Ratio 18 (6-20) Glucose Level 394 mg/dL (70-99) Calcium Level 8.7 mg/dL (8.5-10.1) Total Bilirubin 0.2 mg/dL (0.2-1.0) Aspartate Amino Transf (AST/SGOT) 14 U/L (15-37) Alanine Aminotransferase (ALT/SGPT) 11 U/L (16-63) Alkaline Phosphatase 92 U/L (46-116) Total Protein 7.2 g/dL (6.4-8.2) Albumin 2.8 g/dL (3.4-5.0) Albumin/Globulin Ratio 0.6 (1.0-1.7) Triglycerides Level 303 mg/dL (0-150) Cholesterol Level 179 mg/dL (0-200) LDL Cholesterol, Calculated 88 mg/dL (0-100) VLDL Cholesterol, Calculated 61 mg/dL (0-40) Non-HDL Cholesterol Calculated 149 mg/dL (0-129) HDL Cholesterol 30 mg/dL (40-60) Cholesterol/HDL Ratio 6.0 Test 09/15/19 07:44 Glucose (Fingerstick) 356 mg/dL (70-99) Physical Exam HEENT: Neck Supple W Full Motion Chest: Other (central chest tenderness upon palpitation) Heart: S1S2, RRR Abdomen: Soft N/T Extremities: Other (trace bilateral LE edema ) Neurology: alert, oriented, follow commands Assessment Assessment 1. Chest pain, atypical; AMI ruled out. Most probably MSK. Left chest tenderness upon palpitation 2. Acute on chronic diastolic CHF; multifactorial. Echo with preserved LV systolic function 3. MARQUISE on CKD; Cr better 4. Hypomagnesemia, hypokalemia; replaced. 5. Hypertension; elevated 6. Hyperlipidemia; statin. LDL 88 7. PAD s/p RLE bypass 8. Diabetes, II 9. H/o CVA 10. Tobaccoism 11. ROXANNE 12. Substance abuse. + cocaine; discussed/encouraged cessation Recommendations Mild diuresis with monitoring or renal function Secondary prevention measures No BB with cocaine use No ACEi/ARB with MARQUISE. Consider outpatient stress test; will defer to [facility]. Has appoint schedule for this Saturday. AGUILAR TRIPATHI APRN Sep 15, 2019 12:20
--- NOTE | 2019-09-15 13:09 | PDOC ---
[employer] PROGRESS NOTE Chief Complaint Chief Complaint Chest pain, resolved HTN Hyperlipidemia Asthma Pneumonia CVA Benign prostatic enlarg. Diabetes History of Present Illness History of Present Illness 09/15/19 Pt seen and examined DW pt regarding their care Pt reports being SOB and requested a video control operator b/c of pulm HTN DW RN Reviewed pt's chart Vitals/I&O Vitals/I&O: Vital Signs Date Time Temp Pulse Resp B/P (MAP) Pulse Ox O2 Delivery O2 Flow Rate FiO2 09/15/19 12:07 Room Air 09/15/19 11:00 98.2 75 16 134/52 (79) 91 98.2 I & O 09/14/19 09/14/19 09/15/19 15:00 23:00 07:00 Intake Total 500 ml 780 ml Output Total 300 ml 100 ml Balance -300 ml 400 ml 780 ml Physical Exam General: Alert, Oriented X3, Cooperative, No acute distress Heart: Regular rate, Normal S1, Normal S2 Lungs: Clear Abdomen: Soft, No tenderness Extremities: No cyanosis, Normal pulses, Other (trace bilateral LE edema ) Skin: No rashes, No significant lesion Labs Labs: Laboratory Tests Test 09/14/19 16:38 09/14/19 17:00 09/14/19 20:54 09/15/19 06:25 Glucose (Fingerstick) 412 mg/dL (70-99) 342 mg/dL (70-99) Urine Collection Type Unknown Urine Color Yellow Urine Clarity Clear Urine pH 6.0 Urine Specific Hardy 1.015 Urine Protein >=300 mg/dL (NEG-TRACE) Urine Glucose (UA) >=1000 mg/dL (NEG) Urine Ketones (Stick) Negative mg/dL (NEG) Urine Blood Negative (NEG) Urine Nitrite Negative (NEG) Urine Bilirubin Negative (NEG) Urine Urobilinogen Dipstick 0.2 mg/dL (0.2 mg/dL) Urine Leukocyte Esterase Negative (NEG) Urine RBC 0 /HPF (0-2) Urine WBC 0 /HPF (0-4) Urine Squamous Epithelial Cells Occ /LPF Urine Bacteria 0 /HPF (0-FEW) Urine Opiates Screen Pos (NEG) Urine Methadone Screen Neg (NEG) Urine Barbiturates Neg (NEG) Urine Phencyclidine Screen Neg (NEG) Urine Amphetamine/Methamphetamine Neg (NEG) Urine Benzodiazepines Screen Neg (NEG) Urine Cocaine Screen Pos (NEG) Urine Cannabinoids Screen Neg (NEG) Urine Ethyl Alcohol Neg (NEG) White Blood Count 4.1 x10^3/uL (4.0-11.0) Red Blood Count 3.82 x10^6/uL (4.30-5.70) Hemoglobin 10.4 g/dL (13.0-17.5) Hematocrit 32.6 % (39.0-53.0) Mean Corpuscular Volume 86 fL (79-100) Mean Corpuscular Hemoglobin 27 pg (25-35) Mean Corpuscular Hemoglobin Concent 32 g/dL (31-37) Red Cell Distribution Width 14.8 % (11.5-14.5) Platelet Count 244 x10^3/uL (140-400) Neutrophils (%) (Auto) 54 % (31-73) Lymphocytes (%) (Auto) 34 % (24-48) Monocytes (%) (Auto) 9 % (0-9) Eosinophils (%) (Auto) 3 % (0-3) Basophils (%) (Auto) 1 % (0-3) Neutrophils # (Auto) 2.2 x10^3/uL (1.8-7.7) Lymphocytes # (Auto) 1.4 x10^3/uL (1.0-4.8) Monocytes # (Auto) 0.4 x10^3/uL (0.0-1.1) Eosinophils # (Auto) 0.1 x10^3/uL (0.0-0.7) Basophils # (Auto) 0.0 x10^3/uL (0.0-0.2) Sodium Level 135 mmol/L (136-145) Potassium Level 4.3 mmol/L (3.5-5.1) Chloride Level 102 mmol/L (98-107) Carbon Dioxide Level 26 mmol/L (21-32) Anion Gap 7 (6-14) Blood Urea Nitrogen 41 mg/dL (8-26) Creatinine 2.3 mg/dL (0.7-1.3) Estimated GFR (Cockcroft-Gault) 35.9 BUN/Creatinine Ratio 18 (6-20) Glucose Level 394 mg/dL (70-99) Calcium Level 8.7 mg/dL (8.5-10.1) Total Bilirubin 0.2 mg/dL (0.2-1.0) Aspartate Amino Transf (AST/SGOT) 14 U/L (15-37) Alanine Aminotransferase (ALT/SGPT) 11 U/L (16-63) Alkaline Phosphatase 92 U/L (46-116) Total Protein 7.2 g/dL (6.4-8.2) Albumin 2.8 g/dL (3.4-5.0) Albumin/Globulin Ratio 0.6 (1.0-1.7) Triglycerides Level 303 mg/dL (0-150) Cholesterol Level 179 mg/dL (0-200) LDL Cholesterol, Calculated 88 mg/dL (0-100) VLDL Cholesterol, Calculated 61 mg/dL (0-40) Non-HDL Cholesterol Calculated 149 mg/dL (0-129) HDL Cholesterol 30 mg/dL (40-60) Cholesterol/HDL Ratio 6.0 Test 09/15/19 07:44 09/15/19 11:03 Glucose (Fingerstick) 356 mg/dL (70-99) 321 mg/dL (70-99) Review of Systems Review of Systems: No c/o blurry vision No c/o CP Assessment and Plan Assessmemt and Plan Problems Medical Problems: (1) Chest pain Status: Acute (2) CKD (chronic kidney disease) stage 3, GFR 30-59 ml/min Status: Acute (3) Elevated brain natriuretic peptide (BNP) level Status: Acute (4) Hypertension Status: Acute (5) Hypokalemia Status: Acute (6) Hypomagnesemia Status: Acute (7) Pleural effusion Status: Acute Assessment Chest pain, resolved HTN Hyperlipidemia Asthma Pneumonia CVA Benign prostatic enlarg. Diabetes Plan Consult pulm IV pain meds PRN DVT Prophylaxis PT/OT Labs Home meds Full code Appreciate subspecialist input Probable discharge if okay with pulm Comment Review of Relevant I have reviewed the following items karissa (where applicable) has been applied. Medications: Current Medications Medications (Trade) Dose Ordered Sig/Kiera Route PRN Reason Start Time Stop Time Status Last Admin Dose Admin Insulin Glargine (Lantus Syringe) 50 unit QHS SQ 09/14/19 21:00 09/14/19 21:07 Atorvastatin Calcium (Lipitor) 80 mg QHS PO 09/14/19 21:00 09/14/19 20:57 Heparin Sodium (Porcine) (Heparin Sodium) 5,000 unit Q8HRS SQ 09/14/19 14:00 09/15/19 05:39 Insulin Human Lispro (HumaLOG) 0-9 UNITS TIDWMEALHC SQ 09/14/19 17:00 09/15/19 08:27 Furosemide (Lasix) 40 mg 1X ONCE IVP 09/15/19 08:00 09/15/19 08:01 DC 09/15/19 09:18 Hydralazine HCl (Apresoline) 50 mg BID PO 09/14/19 21:00 09/15/19 08:24 Insulin Human Lispro (HumaLOG) 20 units TIDWMEALS SQ 09/15/19 12:00 09/15/19 12:06 Acetaminophen/ Hydrocodone Bitart (Lortab 5/325) 1 tab Q6HRS PRN PO PAIN 09/15/19 10:15 09/15/19 12:07 QUITA AVALOS III DO Sep 15, 2019 13:09
[2019-09-15 14:40] VITALS: BP 139/50
[2019-09-15] MEDS: oxyCODONE/APAP 5/325 1 TAB TABLET PO PRN ×2 (15:09→20:37)
[2019-09-15 19:50] VITALS: BP 133/61
[2019-09-15] MEDS: ATORVASTATIN CALCIUM 40 MG TABLET. PO SCH (20:38)
[2019-09-15] MEDS: INSULIN GLARGINE SYRINGE. SQ SCH (20:48)
[2019-09-15 23:32] VITALS: BP 150/83
[2019-09-16 03:49] VITALS: BP 143/64
[2019-09-16] MEDS: HEPARIN for SUB-Q USE 5,000 UNIT/ML VIAL. SQ SCH ×3 (06:00→20:36)
[2019-09-16 07:00] VITALS: BP 164/37
[2019-09-16] MEDS: INSULIN LISPRO 300 UNITS/3 ML VIAL. SQ SCH ×7 (08:00→20:25)
[2019-09-16] MEDS: PANTOPRAZOLE 40 MG TABLET.DR. PO SCH (08:49)
[2019-09-16] MEDS: DOXAZOSIN MESYLATE 4 MG TABLET. PO SCH (08:49)
[2019-09-16] MEDS: ASPIRIN CHEWABLE 81 MG TABLET. PO SCH (08:49)
[2019-09-16] MEDS: TAMSULOSIN 0.4 MG CAP.ER.24H. PO SCH (08:49)
[2019-09-16] MEDS: amLODIPine BESYLATE 10 MG TABLET PO SCH (08:50)
[2019-09-16] MEDS: HYDROcodone/APAP 5/325MG 1 TAB TABLET PO PRN ×3 (08:54→20:41)
[2019-09-16] MEDS: NICOTINE 14MG PATCH. TD SCH (09:00)
[2019-09-16 11:00] VITALS: BP 123/40
--- NOTE | 2019-09-16 11:31 | PDOC ---
[employer] PROGRESS NOTE Chief Complaint Chief Complaint Chest pain, resolved HTN Hyperlipidemia Asthma Pneumonia CVA Benign prostatic enlarg. Diabetes History of Present Illness History of Present Illness 09/16/19 Pt seen and examined Pt resting in NAD on CPAP LEX RN Reviewed pt's chart 09/15/19 Pt seen and examined DW pt regarding their care Pt reports being SOB and requested a orthopedic tech b/c of pulm HTN LEX RN Reviewed pt's chart Vitals/I&O Vitals/I&O: Vital Signs Date Time Temp Pulse Resp B/P (MAP) Pulse Ox O2 Delivery O2 Flow Rate FiO2 09/16/19 11:00 98.6 81 18 123/40 (67) 92 BiPAP/CPAP 98.6 I & O 09/15/19 09/15/19 09/16/19 15:00 23:00 07:00 Intake Total 400 ml 250 ml Output Total 800 ml Balance -800 ml 400 ml 250 ml Physical Exam General: Alert, Oriented X3, Cooperative, No acute distress Heart: Regular rate, Normal S1, Normal S2 Lungs: Clear Abdomen: Soft, No tenderness Extremities: No cyanosis, Normal pulses, Other (trace bilateral LE edema ) Skin: No rashes, No significant lesion Labs Labs: Laboratory Tests Test 09/15/19 20:43 09/16/19 07:45 Glucose (Fingerstick) 130 mg/dL (70-99) 316 mg/dL (70-99) Review of Systems Review of Systems: Unable to obtain as pt was resting in NAD Assessment and Plan Assessmemt and Plan Problems Medical Problems: (1) Chest pain Status: Acute (2) CKD (chronic kidney disease) stage 3, GFR 30-59 ml/min Status: Acute (3) Elevated brain natriuretic peptide (BNP) level Status: Acute (4) Hypertension Status: Acute (5) Hypokalemia Status: Acute (6) Hypomagnesemia Status: Acute (7) Pleural effusion Status: Acute Assessment Chest pain, resolved HTN Hyperlipidemia Asthma Pneumonia CVA Benign prostatic enlarg. Diabetes Plan Consult pulm IV pain meds PRN DVT Prophylaxis PT/OT Labs Home meds Full code Appreciate subspecialist input Discharge w/CPAP if okay with pulm Comment Review of Relevant I have reviewed the following items karissa (where applicable) has been applied. Medications: Current Medications Medications (Trade) Dose Ordered Sig/Kiera Route PRN Reason Start Time Stop Time Status Last Admin Dose Admin Insulin Human Lispro (HumaLOG) 20 units TIDWMEALS SQ 09/15/19 12:00 09/16/19 08:57 Oxycodone/ Acetaminophen (Percocet 5/325) 1 tab PRN Q4HRS PRN PO PAIN 09/15/19 15:00 09/15/19 20:37 QUITA AVALOS III DO Sep 16, 2019 11:30
[2019-09-16 15:00] VITALS: BP 150/44
--- NOTE | 2019-09-16 15:46 | PDOC ---
PULMONARY PROGRESS NOTES Vitals Vital Signs Date Time Temp Pulse Resp B/P (MAP) Pulse Ox O2 Delivery O2 Flow Rate FiO2 09/16/19 15:01 18 92 Room Air 09/16/19 15:00 98.6 87 150/44 (79) 98.6 General: Alert Lungs: Clear Cardiovascular: S1, S2 Abdomen: Soft Extremities: No Edema Labs Laboratory Tests Test 09/14/19 16:38 09/14/19 17:00 09/14/19 20:54 09/15/19 06:25 Glucose (Fingerstick) 412 mg/dL (70-99) 342 mg/dL (70-99) Urine Collection Type Unknown Urine Color Yellow Urine Clarity Clear Urine pH 6.0 Urine Specific [place] 1.015 Urine Protein >=300 mg/dL (NEG-TRACE) Urine Glucose (UA) >=1000 mg/dL (NEG) Urine Ketones (Stick) Negative mg/dL (NEG) Urine Blood Negative (NEG) Urine Nitrite Negative (NEG) Urine Bilirubin Negative (NEG) Urine Urobilinogen Dipstick 0.2 mg/dL (0.2 mg/dL) Urine Leukocyte Esterase Negative (NEG) Urine RBC 0 /HPF (0-2) Urine WBC 0 /HPF (0-4) Urine Squamous Epithelial Cells Occ /LPF Urine Bacteria 0 /HPF (0-FEW) Urine Opiates Screen Pos (NEG) Urine Methadone Screen Neg (NEG) Urine Barbiturates Neg (NEG) Urine Phencyclidine Screen Neg (NEG) Urine Amphetamine/Methamphetamine Neg (NEG) Urine Benzodiazepines Screen Neg (NEG) Urine Cocaine Screen Pos (NEG) Urine Cannabinoids Screen Neg (NEG) Urine Ethyl Alcohol Neg (NEG) White Blood Count 4.1 x10^3/uL (4.0-11.0) Red Blood Count 3.82 x10^6/uL (4.30-5.70) Hemoglobin 10.4 g/dL (13.0-17.5) Hematocrit 32.6 % (39.0-53.0) Mean Corpuscular Volume 86 fL (79-100) Mean Corpuscular Hemoglobin 27 pg (25-35) Mean Corpuscular Hemoglobin Concent 32 g/dL (31-37) Red Cell Distribution Width 14.8 % (11.5-14.5) Platelet Count 244 x10^3/uL (140-400) Neutrophils (%) (Auto) 54 % (31-73) Lymphocytes (%) (Auto) 34 % (24-48) Monocytes (%) (Auto) 9 % (0-9) Eosinophils (%) (Auto) 3 % (0-3) Basophils (%) (Auto) 1 % (0-3) Neutrophils # (Auto) 2.2 x10^3/uL (1.8-7.7) Lymphocytes # (Auto) 1.4 x10^3/uL (1.0-4.8) Monocytes # (Auto) 0.4 x10^3/uL (0.0-1.1) Eosinophils # (Auto) 0.1 x10^3/uL (0.0-0.7) Basophils # (Auto) 0.0 x10^3/uL (0.0-0.2) Sodium Level 135 mmol/L (136-145) Potassium Level 4.3 mmol/L (3.5-5.1) Chloride Level 102 mmol/L (98-107) Carbon Dioxide Level 26 mmol/L (21-32) Anion Gap 7 (6-14) Blood Urea Nitrogen 41 mg/dL (8-26) Creatinine 2.3 mg/dL (0.7-1.3) Estimated GFR (Cockcroft-Gault) 35.9 BUN/Creatinine Ratio 18 (6-20) Glucose Level 394 mg/dL (70-99) Calcium Level 8.7 mg/dL (8.5-10.1) Total Bilirubin 0.2 mg/dL (0.2-1.0) Aspartate Amino Transf (AST/SGOT) 14 U/L (15-37) Alanine Aminotransferase (ALT/SGPT) 11 U/L (16-63) Alkaline Phosphatase 92 U/L (46-116) Total Protein 7.2 g/dL (6.4-8.2) Albumin 2.8 g/dL (3.4-5.0) Albumin/Globulin Ratio 0.6 (1.0-1.7) Triglycerides Level 303 mg/dL (0-150) Cholesterol Level 179 mg/dL (0-200) LDL Cholesterol, Calculated 88 mg/dL (0-100) VLDL Cholesterol, Calculated 61 mg/dL (0-40) Non-HDL Cholesterol Calculated 149 mg/dL (0-129) HDL Cholesterol 30 mg/dL (40-60) Cholesterol/HDL Ratio 6.0 Test 09/15/19 07:44 09/15/19 11:03 09/15/19 20:43 09/16/19 07:45 Glucose (Fingerstick) 356 mg/dL (70-99) 321 mg/dL (70-99) 130 mg/dL (70-99) 316 mg/dL (70-99) Test 09/16/19 11:33 Glucose (Fingerstick) 218 mg/dL (70-99) Laboratory Tests Test 09/15/19 20:43 09/16/19 07:45 09/16/19 11:33 Glucose (Fingerstick) 130 mg/dL (70-99) 316 mg/dL (70-99) 218 mg/dL (70-99) Medications Active Scripts Medications Dose Route/Sig Max Daily Dose Days Date Category Augmentin 875-125 Tablet (Amoxicillin/Potassium Clav) 1 Each Tablet 1 Tab PO BID 04/10/17 Rx [place] 5-325 Tablet (Acetaminophen/Hydrocodone Bitart) 1 Each Tablet 1 Tab PO Q6HRS PRN 04/10/17 Rx Reglan (Metoclopramide Hcl) 10 Mg Tablet 1 Tab PO TID PRN 08/05/16 Rx Flomax (Tamsulosin Hcl) 0.4 Mg Cap.er.24h 0.4 Mg PO DAILY 06/19/16 Rx Levemir Flextouch (Insulin Detemir) 100 Unit/1 Ml Insuln.pen 65 Units SQ QHS 30 06/19/16 Rx Hydrocodone-Apap 10-325 (Hydrocodone Bit/Acetaminophen) 1 Each Tablet 1 Tab PO PRN Q4HRS PRN 06/19/16 Rx Children's Aspirin (Aspirin) 81 Mg Tab.chew 81 Mg PO DAILYWBKFT 06/19/16 Rx Nexium Capsule (Esomeprazole Magnesium) 40 Mg Capsule. 1 Cap PO DAILY 06/06/16 Reported Amlodipine Besylate 10 Mg Tablet 10 Mg PO DAILY 06/06/16 Reported Ranitidine Hcl 150 Mg Capsule 1 Cap PO DAILY 06/06/16 Reported Doxazosin Mesylate 4 Mg Tablet 1 Tab PO DAILY 06/06/16 Reported Nicotine Patch (Nicotine) 1 Each Patch.td24 1 Patch TP DAILY 01/07/15 Reported Diovan (Valsartan) 320 Mg Tablet 320 Mg PO DAILY 11/22/13 Reported Crestor (Rosuvastatin Calcium) 20 Mg Tablet 20 Mg PO QHS 11/22/13 Reported Levemir Flexpen (Insulin Detemir) 100 Unit/1 Ml Insuln.pen 50 Unit SQ HS 11/22/13 Reported Novolog Flexpen (Insulin Aspart) 100 Unit/1 Ml Insuln.pen 20 Unit SQ TIDAC 11/22/13 Reported Impression . NOTE DICTATED OK TO DC FOLLOW UP AT PULMONARY HTN CLINIC CONTINUE CPAP AT HOME GIANLUCA GOLD MD Sep 16, 2019 15:45
--- NOTE | 2019-09-16 16:00 | NUR ---
Patient has a discharge order but cannot go home today. He claimed that he locked his keys in his apartment and his landlord is not around until tomorrow morning. Dr. Farias notified.
[2019-09-16 19:48] VITALS: BP 142/61
[2019-09-16] MEDS: ATORVASTATIN CALCIUM 40 MG TABLET. PO SCH (20:28)
[2019-09-16] MEDS: INSULIN GLARGINE SYRINGE. SQ SCH (20:36)
[2019-09-16 23:40] VITALS: BP 145/50
--- NOTE | 2019-09-17 01:47 | CONS ---
DATE OF CONSULTATION: 09/16/2019 ATTENDING PHYSICIAN: Dr. Freeman. REASON FOR CONSULTATION: The patient seen in pulmonary consultation at the request of Dr. Farias for pulmonary hypertension. HISTORY OF PRESENT ILLNESS: The patient is a 54-year-old male with multiple comorbidities, chronic type 2 diabetes, hyperlipidemia, hypertension, pancreatitis, chronic renal failure, cocaine abuse, was admitted with some chest pain, shortness of breath. He has had previous right-sided cardiac catheterization revealing pulmonary hypertension. I was asked to see him in consultation at the patient's request. Upon further questioning, the patient is actually established at [facility] with a physical medicine physician. He reports is very short of air with minimal exertion. No fever, chills or night sweats. He does report that he has had previous sleep study and is utilizing his CPAP machine at home. PAST MEDICAL HISTORY: Qhjky-gg-yeajudi kidney failure, hyperlipidemia, peripheral arterial disease, status post right lower extremity bypass, type 2 diabetes, history of cerebrovascular accident, tobacco abuse, polysubstance abuse, obstructive sleep apnea, morbid obesity. PAST SURGICAL HISTORY: As above. ALLERGIES: SULFONAMIDES. REVIEW OF SYSTEMS: As indicated above, otherwise, a 10-point system was reviewed and negative. CURRENT MEDICATION: List was reviewed. PHYSICAL EXAMINATION: VITAL SIGNS: Stable. He was on room air saturation greater than 92%. HEENT: Eyes, the sclerae were nonicteric. NECK: Jugular venous distention could not be assessed secondary to body habitus. CHEST: Full expansion. LUNGS: Adequate air flow with no wheezes. CARDIOVASCULAR: Regular rate and rhythm with S1, S2, no S3. ABDOMEN: Soft, obese. EXTREMITIES: No clubbing, cyanosis. Minimal edema. LABORATORY DATA: Reviewed. Toxicology screen was positive for opiates and cocaine. Chest x-ray was reviewed and there is cardiomegaly with mild heart failure. IMPRESSION: 1. Secondary pulmonary hypertension, suspect related to chronic obstructive pulmonary disease, obstructive sleep apnea, and polysubstance use/cocaine. 2. Chest pain. 3. Previous right heart catheterization revealing pulmonary artery pressure of 62. 4. Rkdej-cc-dahzlry diastolic heart failure. 5. Obstructive sleep apnea. 6. Tobacco use. 7. Polysubstance use. PLAN: 1. As indicated above, the patient has a physical medicine physician at [facility]. I recommend he follow up with him. 2. I also provided him with information on the possibility of visiting with the Pulmonary Hypertension Clinic at [facility]. 3. We will check oxygen needs prior to discharge. 4. Continue CPAP use at home. I do appreciate the privilege in sharing in the patient's care. GIANLUCA GOLD MD DR: DAHIANA/portia JOB#: [id number] / [id number]
[2019-09-17] MEDS: HYDROcodone/APAP 5/325MG 1 TAB TABLET PO PRN (02:56)
[2019-09-17 03:56] VITALS: BP 167/51
[2019-09-17] MEDS: HEPARIN for SUB-Q USE 5,000 UNIT/ML VIAL. SQ SCH (04:51)
[2019-09-17 07:00] VITALS: BP 146/44
[2019-09-17] MEDS: INSULIN LISPRO 300 UNITS/3 ML VIAL. SQ SCH ×4 (08:00→12:30)
--- NOTE | 2019-09-17 08:02 | PDOC ---
[employer] PROGRESS NOTE Chief Complaint Chief Complaint Chest pain, resolved HTN Hyperlipidemia Asthma Pneumonia CVA Benign prostatic enlarg. Diabetes History of Present Illness History of Present Illness [id number] Patient seen and examined He is as baseline Didn't go home last night because he states he didn't have his daily We will re-discharge 09/16/19 Pt seen and examined Pt resting in NAD on CPAP LEX RN Reviewed pt's chart 09/15/19 Pt seen and examined DW pt regarding their care Pt reports being SOB and requested a bellows filler b/c of pulm HTN LEX RN Reviewed pt's chart Vitals/I&O Vitals/I&O: Vital Signs Date Time Temp Pulse Resp B/P (MAP) Pulse Ox O2 Delivery O2 Flow Rate FiO2 09/17/19 04:52 BiPAP/CPAP 09/17/19 03:56 98.3 75 20 167/51 (89) 95 98.3 I & O 09/16/19 09/16/19 09/17/19 15:00 23:00 07:00 Intake Total 400 ml 240 ml 100 ml Output Total 400 ml 100 ml Balance 400 ml -160 ml 0 ml Physical Exam General: Alert, Oriented X3, Cooperative, No acute distress Heart: Regular rate, Normal S1, Normal S2 Lungs: Clear Abdomen: Soft, No tenderness Extremities: No cyanosis, Normal pulses, Other (trace bilateral LE edema ) Skin: No rashes, No significant lesion Labs Labs: Laboratory Tests Test 09/16/19 11:33 09/16/19 17:05 09/16/19 20:24 Glucose (Fingerstick) 218 mg/dL (70-99) 99 mg/dL (70-99) 125 mg/dL (70-99) Assessment and Plan Assessmemt and Plan Problems Medical Problems: (1) Chest pain Status: Acute (2) CKD (chronic kidney disease) stage 3, GFR 30-59 ml/min Status: Acute (3) Elevated brain natriuretic peptide (BNP) level Status: Acute (4) Hypertension Status: Acute (5) Hypokalemia Status: Acute (6) Hypomagnesemia Status: Acute (7) Pleural effusion Status: Acut Discharge home Comment Review of Relevant I have reviewed the following items karissa (where applicable) has been applied. QUITA AVALOS III, DO Sep 17, 2019 08:02
[2019-09-17] MEDS: NICOTINE 14MG PATCH. TD SCH (09:00)
[2019-09-17] MEDS: PANTOPRAZOLE 40 MG TABLET.DR. PO SCH (09:41)
[2019-09-17] MEDS: ASPIRIN CHEWABLE 81 MG TABLET. PO SCH (09:41)
[2019-09-17] MEDS: DOXAZOSIN MESYLATE 4 MG TABLET. PO SCH (09:42)
[2019-09-17] MEDS: TAMSULOSIN 0.4 MG CAP.ER.24H. PO SCH (09:42)
[2019-09-17] MEDS: amLODIPine BESYLATE 10 MG TABLET PO SCH (09:42)
[2019-09-17 11:00] VITALS: BP 144/92
--- NOTE | 2019-09-17 11:18 | PDOC ---
PULMONARY PROGRESS NOTES Vitals Vital Signs Date Time Temp Pulse Resp B/P (MAP) Pulse Ox O2 Delivery O2 Flow Rate FiO2 09/17/19 09:42 75 146/44 09/17/19 08:00 Room Air 09/17/19 07:00 97.1 16 94 97.1 General: Alert Lungs: Clear Cardiovascular: S1, S2 Abdomen: Soft Extremities: No Edema Labs Laboratory Tests Test 09/15/19 16:34 09/15/19 20:43 09/16/19 07:45 09/16/19 11:33 Glucose (Fingerstick) 151 mg/dL (70-99) 130 mg/dL (70-99) 316 mg/dL (70-99) 218 mg/dL (70-99) Test 09/16/19 17:05 09/16/19 20:24 09/17/19 07:44 Glucose (Fingerstick) 99 mg/dL (70-99) 125 mg/dL (70-99) 246 mg/dL (70-99) Laboratory Tests Test 09/16/19 11:33 09/16/19 17:05 09/16/19 20:24 09/17/19 07:44 Glucose (Fingerstick) 218 mg/dL (70-99) 99 mg/dL (70-99) 125 mg/dL (70-99) 246 mg/dL (70-99) Medications Active Scripts Medications Dose Route/Sig Max Daily Dose Days Date Category Augmentin 875-125 Tablet (Amoxicillin/Potassium Clav) 1 Each Tablet 1 Tab PO BID 04/10/17 Rx [place] 5-325 Tablet (Acetaminophen/Hydrocodone Bitart) 1 Each Tablet 1 Tab PO Q6HRS PRN 04/10/17 Rx Reglan (Metoclopramide Hcl) 10 Mg Tablet 1 Tab PO TID PRN 08/05/16 Rx Flomax (Tamsulosin Hcl) 0.4 Mg Cap.er.24h 0.4 Mg PO DAILY 06/19/16 Rx Levemir Flextouch (Insulin Detemir) 100 Unit/1 Ml Insuln.pen 65 Units SQ QHS 30 06/19/16 Rx Hydrocodone-Apap 10-325 (Hydrocodone Bit/Acetaminophen) 1 Each Tablet 1 Tab PO PRN Q4HRS PRN 06/19/16 Rx Children's Aspirin (Aspirin) 81 Mg Tab.chew 81 Mg PO DAILYWBKFT 06/19/16 Rx Nexium Capsule (Esomeprazole Magnesium) 40 Mg Capsule. 1 Cap PO DAILY 06/06/16 Reported Amlodipine Besylate 10 Mg Tablet 10 Mg PO DAILY 06/06/16 Reported Ranitidine Hcl 150 Mg Capsule 1 Cap PO DAILY 06/06/16 Reported Doxazosin Mesylate 4 Mg Tablet 1 Tab PO DAILY 06/06/16 Reported Nicotine Patch (Nicotine) 1 Each Patch.td24 1 Patch TP DAILY 01/07/15 Reported Diovan (Valsartan) 320 Mg Tablet 320 Mg PO DAILY 11/22/13 Reported Crestor (Rosuvastatin Calcium) 20 Mg Tablet 20 Mg PO QHS 11/22/13 Reported Levemir Flexpen (Insulin Detemir) 100 Unit/1 Ml Insuln.pen 50 Unit SQ HS 11/22/13 Reported Novolog Flexpen (Insulin Aspart) 100 Unit/1 Ml Insuln.pen 20 Unit SQ TIDAC 11/22/13 Reported Impression . IMPRESSION: 1. Secondary pulmonary hypertension, suspect related to chronic obstructive pulmonary disease, obstructive sleep apnea, and polysubstance use/cocaine. 2. Chest pain. 3. Previous right heart catheterization revealing pulmonary artery pressure of 62. 4. Bgrdm-bs-mgwstwa diastolic heart failure. 5. Obstructive sleep apnea. 6. Tobacco use. 7. Polysubstance use. Plan . 1. 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 I recommend he follow up with him. 2. I also provided him with information on the possibility of visiting with the Pulmonary Hypertension Clinic at [facility]. 3. We will check oxygen needs prior to discharge. 4. Continue CPAP use at home. GIANLUCA GOLD MD Sep 17, 2019 11:18
--- NOTE | 2019-09-17 13:37 | NUR ---
Pt left unit at approx 1335 by wheelchair via private vehicle. Pt IV removed with no complications. Discharge paperwork and scripts discussed and sent with pt at time of discharge. Additional questions addressed.
--- NOTE | 2019-09-19 09:20 | DS ---
DATE OF DISCHARGE: 09/17/2019 ADMISSION DIAGNOSES: Chest pain, elevated troponin, hypomagnesemia, cocaine positive. DISCHARGE DIAGNOSIS: Resolving chest pain, suspect secondary to cocaine. HOSPITAL COURSE: The patient is a pleasant 54-year-old male who has been doing cocaine for many years. Basically presented with chest pain. He also had electrolyte disturbance with hyponatremia and was in some mild heart failure. We admitted the patient, consulted Cardiology and Pulmonary. He did require some CPAP at night. We got his chest pain resolved and his electrolytes corrected. In the next couple of days, he was able to go home with close outpatient followup. DISPOSITION: Home. ACTIVITY: As tolerated. DIET: Low sodium. MEDICATIONS: Please see the MRAD. TOTAL TIME: 32 minutes. QUITA AVALOS DO DR: IAM/portia JOB#: [id number] / [id number]
== END 2019-09-17 13:41 | disposition home or self-care (01) | DRG 917 ==
LOC: ER 03:38 → 2 SOUTH 05:33 → 6 SOUTH 06:11
PROVIDERS: ADMIT Internal Medicine; ATTEND Internal Medicine
PROC: 5A09457 Assistance with Respiratory Ventilation, 24-96 Consecutive Hours, Continuous Positive Airway Pressure (ICD-10-PCS; principal; 2019-09-14)
DX: T40.5X1A Poisoning by cocaine, accidental (unintentional), initial encounter (principal); I50.33 Acute on chronic diastolic (congestive) heart failure; N17.9 Acute kidney failure, unspecified; E87.1 Hypo-osmolality and hyponatremia; I13.0 Hypertensive heart and chronic kidney disease with heart failure and stage 1 through stage 4 chronic kidney disease, or unspecified chronic kidney disease; R07.89 Other chest pain; E11.22 Type 2 diabetes mellitus with diabetic chronic kidney disease; E11.51 Type 2 diabetes mellitus with diabetic peripheral angiopathy without gangrene; E78.00 Pure hypercholesterolemia, unspecified; E78.5 Hyperlipidemia, unspecified; E83.42 Hypomagnesemia; E87.6 Hypokalemia; F14.10 Cocaine abuse, uncomplicated; F17.210 Nicotine dependence, cigarettes, uncomplicated; G47.33 Obstructive sleep apnea (adult) (pediatric); I25.10 Atherosclerotic heart disease of native coronary artery without angina pectoris; N18.3 Chronic kidney disease, stage 3 (moderate); Z82.49 Family history of ischemic heart disease and other diseases of the circulatory system; Z86.73 Personal history of transient ischemic attack (TIA), and cerebral infarction without residual deficits; E66.01 Morbid (severe) obesity due to excess calories; K21.9 Gastro-esophageal reflux disease without esophagitis; M19.90 Unspecified osteoarthritis, unspecified site; Z68.39 Body mass index [BMI] 39.0-39.9, adult
CPT/HCPCS: 36415; 71045; 80053; 80061; 80307; 81001; 82962; 83690; 83735; 83880; 84484; 85025; 93005; 93306; 94618; 94660; 96361; 96365; 96375; J1644; J1815; J1940; J2270; J3475; J7030; 99285-25; G0378

== ENCOUNTER 2020-10-20 11:32 | Inpatient (IN) | payer MEDICAID ==
[~2020-10-20] VITALS: Ht 172.7 cm; Wt 121.4 kg
[~2020-10-20 11:32] MED LIST changes: +AMLO-187 PO; -AMLO10TA8 PO
[2020-10-20 12:01] LABS: BASE EXCESS ABG -3 mmol/L (-3-3); HCO3 ABG 22 mmol/L (21-28); PCO2 ABG 39 mmHg (35-46); PO2 ABG 65 mmHg (75-108); SAT O2 ABG 92 % (92-99)
[2020-10-20 12:02] LABS: FIO2 ABG 21/BIPAP
--- NOTE | 2020-10-20 12:26 | RAD ---
XR CHEST 1V Clinical Indication: Reason: SOA / Spl. Instructions: / History: Comparison: AP chest September 14, 2019. Findings: The cardiomediastinal silhouette is normal. The pulmonary vasculature is upper limits of normal. Lung s are clear. There is no pneumothorax. No pleural effusion is appreciated. No acute bone abnormality. IMPRESSION: No acute cardiopulmonary process. Electronically signed by: Ty Christianson MD (10/20/2020 12:23 PM) [id number]
[2020-10-20 12:30] LABS: BASO # 0.1 x10^3/uL (0.0-0.2); BASO % 1 % (0-3); EOS # 0.1 x10^3/uL (0.0-0.7); EOS % 2 % (0-3); HEMATOCRIT 25.7 % (39.0-53.0); HEMOGLOBIN 8.3 g/dL (13.0-17.5); LYMPH # 0.9 x10^3/uL (1.0-4.8); LYMPH % 14 % (24-48); MEAN CORPUSCULAR HEMOGLOBIN 29 pg (25-35); MEAN CORPUSCULAR HGB CONC 32 g/dL (31-37); MEAN CORPUSCULAR VOLUME 89 fL (79-100); MONO # 0.3 x10^3/uL (0.0-1.1); MONO % 5 % (0-9); NEUT # 4.8 x10^3/uL (1.8-7.7); NEUT % 78 % (31-73); PLATELET COUNT 246 x10^3/uL (140-400); RED BLOOD COUNT 2.88 x10^6/uL (4.30-5.70); RED CELL DISTRIBUTION WIDTH 14.6 % (11.5-14.5); WHITE BLOOD COUNT 6.1 x10^3/uL (4.0-11.0)
--- NOTE | 2020-10-20 12:35 | PHYS DOC ---
Past Medical History Past Medical History: CHF, Diabetes-Type II, High Cholesterol, Hypertension, Pancreatitis, Renal Disease, Vascular Disease Additional Past Medical Histor: CHRONIC KIDNEY DISEASE, neuropathy, prostate, PULMONARY HTN Past Surgical History: Other Additional Past Surgical Histo: HERNIA REPAIR, R leg bypass Smoking Status: Current Some Day Smoker Alcohol Use: Occasionally Drug Use: Cocaine General Adult EDM: Chief Complaint: SHORTNESS OF BREATH HPI: HPI: Patient is a 55 year old male who was brought here by EMS from home due to tro uble breathing for a week and chest pain today. Patient denies any fever or cough. Patient has history of CHF, hypertension, diabetic, kidney problem. Patient denies any history of COVID-19 infection or been exposed to anybody with COVID-19 infection . When EMS got to his house, he was observed sitting in his car, having shortness of air. Patient was placed on BIPAP per EMS and brought him here for evaluation. Review of Systems: Review of Systems: Constitutional: Denies fever or chills. [] Eyes: Denies change in visual acuity. [] HENT: Denies nasal congestion or sore throat. [] Respiratory: Denies cough , positive for shortness of breath. [] Cardiovascular: Positive for chest pain and edema. [] GI: Denies abdominal pain, nausea, vomiting, bloody stools or diarrhea. [] : Denies dysuria. [] Musculoskeletal: Denies back pain or joint pain. [] Integument: Denies rash. [] Neurologic: Denies headache, focal weakness or sensory changes. [] Endocrine: Denies polyuria or polydipsia. [] Lymphatic: Denies swollen glands. [] Psychiatric: Denies depression or anxiety. [] Heart Score: Risk Factors: Risk Factors: DM, Current or recent (<one month) smoker, HTN, HLP, family history of CAD, obesity. Risk Scores: Score 0 - 3: 2.5% MACE over next 6 weeks - Discharge Home Score 4 - 6: 20.3% MACE over next 6 weeks - Admit for Clinical Observation Score 7 - 10: 72.7% MACE over next 6 weeks - Early Invasive Strategies Allergies: Allergies: Allergies Coded Allergies Type Severity Reaction Last Updated Verified Sulfa (Sulfonamide Antibiotics) Allergy Intermediate Rash 08/05/16 Yes Physical Exam: PE: Constitutional: Well developed, well nourished, MILD acute distress, non-toxic appearance. [] HENT: Normocephalic, atraumatic, bilateral external ears normal, oropharynx moist, no oral exudates, nose normal. [] Eyes: PERRLA, EOMI, conjunctiva normal, no discharge. Periorbital edema. Neck: Normal range of motion, no tenderness, supple, no stridor. [] Cardiovascular:Heart rate regular rhythm, no murmur [] Lungs & Thorax: Bilateral breath sounds with rales auscultation, tachypnic, in respiratory distress. Abdomen: Bowel sounds normal, soft, no tenderness, no masses, no pulsatile masses. [] Skin: Warm, dry, no erythema, no rash. [] Back: No tenderness, no CVA tenderness. [] Extremities: No tenderness, no cyanosis, no clubbing, ROM intact, pitting edema in lower legs. Neurologic: Alert and oriented X 3, normal motor function, normal sensory function, no focal deficits noted. [] Psychologic: Affect normal, judgement normal, mood normal. [] Current Patient Data: Labs: Laboratory Tests Test 10/20/20 11:38 10/20/20 12:11 O2 Saturation 92 % (92-99) Arterial Blood pH 7.37 (7.35-7.45) Arterial Blood pCO2 at Patient Temp 39 mmHg (35-46) Arterial Blood pO2 at Patient Temp 65 mmHg (75-108) L Arterial Blood HCO3 22 mmol/L (21-28) Arterial Blood Base Excess -3 mmol/L (-3-3) FiO2 21/bipap White Blood Count 6.1 x10^3/uL (4.0-11.0) Red Blood Count 2.88 x10^6/uL (4.30-5.70) L Hemoglobin 8.3 g/dL (13.0-17.5) L Hematocrit 25.7 % (39.0-53.0) L Mean Corpuscular Volume 89 fL (79-100) Mean Corpuscular Hemoglobin 29 pg (25-35) Mean Corpuscular Hemoglobin Concent 32 g/dL (31-37) Red Cell Distribution Width 14.6 % (11.5-14.5) H Platelet Count 246 x10^3/uL (140-400) Neutrophils (%) (Auto) 78 % (31-73) H Lymphocytes (%) (Auto) 14 % (24-48) L Monocytes (%) (Auto) 5 % (0-9) Eosinophils (%) (Auto) 2 % (0-3) Basophils (%) (Auto) 1 % (0-3) Neutrophils # (Auto) 4.8 x10^3/uL (1.8-7.7) Lymphocytes # (Auto) 0.9 x10^3/uL (1.0-4.8) L Monocytes # (Auto) 0.3 x10^3/uL (0.0-1.1) Eosinophils # (Auto) 0.1 x10^3/uL (0.0-0.7) Basophils # (Auto) 0.1 x10^3/uL (0.0-0.2) Laboratory Tests 10/20/20 12:11 Vital Signs: Vital Signs Date Time Temp Pulse Resp B/P (MAP) Pulse Ox O2 Delivery O2 Flow Rate FiO2 10/20/20 12:06 97 BiPAP/CPAP 10/20/20 11:38 98.1 83 44 208/84 (125) 98.1 EKG: EKG: EKG was done at 1149, heart rate 74 bpm, sinus rhythm, no ST segment elevation. Radiology/Procedures: Radiology/Procedures: [] [id number] [place], [place] [id number] IMAGING REPORT Signed PATIENT: HAILEY MOREIRA ACCOUNT: [id number] : 1965 LOCATION: ER AGE: 55 SEX: M EXAM STATUS: REG ER ORD. PHYSICIAN: FRANK CALLEJAS DO REASON: SOA PROCEDURE: PORTABLE CHEST 1V XR CHEST 1V Clinical Indication: Reason: SOA / Spl. Instructions: / History: Comparison: AP chest September 14, 2019. Findings: The cardiomediastinal silhouette is normal. The pulmonary vasculature is upper limits of normal. Lungs are clear. There is no pneumothorax. No pleural effusion is appreciated. No acute bone abnormality. IMPRESSION: No acute cardiopulmonary process. Electronically signed by: Ty Christianson MD (10/20/2020 12:23 PM) [id number] DICTATED and SIGNED BY: TY CHRISTIANSON MD DATE: 10/20/20 [id number] Course & Med Decision Making: Course & Med Decision Making Pertinent Labs and Imaging studies reviewed. (See chart for details) Patient is a 55-year-old male who was brought here by EMS from home due to trouble breathing. Patient was found to have CHF exacerbation, hypertensive. Patient was placed on BiPAP here in the ER, he was given pain medication, morphine for chest pain, Nitropaste was placed in the chest. Patient feel much better, patient will be admitted to hospital for further evaluation and treatm ent. [place] Disclaimer: [place] Disclaimer: This electronic medical record was generated, in whole or in part, using a voice recognition dictation system. Departure Departure Impression: Primary Impression: CHF exacerbation Additional Impressions: Chest pain Person under investigation for COVID-19 HTN (hypertension) Disposition: 09 ADMITTED INPT THIS HOSP Admitting Physician: AMRITA (Dr. Motley) Condition: STABLE Referrals: UNKNOWN PCP NAME (PCP) FRANK CALLEJAS DO Oct 20, 2020 12:35
[2020-10-20 12:41] LABS: CALCIUM 9.5 mg/dL (8.5-10.1); CREATININE 2.2 mg/dL (0.7-1.3); GFR 37.7; POTASSIUM 5.1 mmol/L (3.5-5.1)
[2020-10-20 12:47] LABS: ALBUMIN 3.1 g/dL (3.4-5.0); ALBUMIN/GLOBULIN RATIO 0.7 (1.0-1.7); MAGNESIUM 2.2 mg/dL (1.8-2.4); TOTAL BILIRUBIN 0.4 mg/dL (0.2-1.0); TOTAL PROTEIN 7.3 g/dL (6.4-8.2)
[2020-10-20] MEDS ORDERED: MORPHINE SULFATE 4 MG/ML VIAL. IV ONE (13:15)
[2020-10-20] MEDS ORDERED: NITROGLYCERIN OINT 1 GM PACKET. TP ONE (13:15)
--- NOTE | 2020-10-20 15:37 | PDOC1 ---
History and Physical Date of Admission Date of Admission DATE: 10/20/20 TIME: 15:37 Identification/Chief Complaint Chief Complaint Shortness of breath, chest pain Source Source: Chart review, Patient History of Present Illness History of Present Illness Mr Moran is a 54yo M w/ PMHx Diabetes-Type II, High Cholesterol, Hypertension, Pancreatitis, CKD 4, presents to the ER with complaint of worsening shortness of breath of the past 3 days. He reports associated intermittent chest pain and bilateral lower extremity swelling. States his symptoms are worse with exertion. Upon arrival in the ED his BNP was 3029. He was placed on BiPAP given IV morphine with improvement of symptoms. States he has not taken any of his home medications today. He does report a tender lump in his right breast for the past 3 weeks, reports a family history of breast cancer. He denies any fever, sick contacts, or known COVID-19 exposure. Will admit patient for further medical management. Past Medical History Cardiovascular: CHF, HTN, Hyperlipidemia, Other Pulmonary: COPD, Pneumonia, Other CENTRAL NERVOUS SYSTEM: CVA, Periperal neuropathy GI: GERD Musculoskeletal: Osteoarthritis Renal/: Chronic renal insuff, Benign prostatic enlarg. Endocrine: Diabetes Past Surgical History Past Surgical History: Cholecystectomy, Hernia Repair Family History Family History: Cancer, Hypertension Social History Smoke: Quit ALCOHOL: social Drugs: Cocaine Current Problem List Problem List Problems Medical Problems: (1) Chest pain Status: Acute (2) CHF exacerbation Status: Acute (3) HTN (hypertension) Status: Acute (4) Person under investigation for COVID-19 Status: Acute Current Medications Current Medications Current Medications Nitroglycerin (Nitro-Bid Oint) 1 inch 1X ONCE TP Last administered on 10/20/20at 13:22; Start 10/20/20 at 13:15; Stop 10/20/20 at 13:16; Status DC Morphine Sulfate (Morphine Sulfate) 4 mg 1X ONCE IV Last administered on 10/20/20at 13:23; Start 10/20/20 at 13:15; Stop 10/20/20 at 13:16; Status DC Furosemide (Lasix) 80 mg 1X ONCE IVP ; Start 10/20/20 at 15:45; Stop 10/20/20 at 15:46 Hydralazine HCl (Apresoline Inj) 10 mg PRN Q20MIN PRN IVP ELEVATED BP, SEE COMMENTS; Start 10/20/20 at 15:30 Furosemide (Lasix) 80 mg BID PO ; Start 10/20/20 at 21:00; Status UNV Insulin Human Lispro (HumaLOG) 0-9 UNITS TIDWMEALS SQ ; Start 10/20/20 at 17:00; Status UNV Dextrose (Dextrose 50%-Water Syringe) 12.5 gm PRN Q15MIN PRN IV SEE COMMENTS; Start 10/20/20 at 15:45; Status UNV Active Scripts Active Augmentin 875-125 Tablet (Amoxicillin/Potassium Clav) 1 Each Tablet 1 Tab PO BID [place] 5-325 Tablet (Acetaminophen/Hydrocodone Bitart) 1 Each Tablet 1 Tab PO Q6HRS PRN Reglan (Metoclopramide Hcl) 10 Mg Tablet 1 Tab PO TID PRN Flomax (Tamsulosin Hcl) 0.4 Mg Cap.er.24h 0.4 Mg PO DAILY Levemir Flextouch (Insulin Detemir) 100 Unit/1 Ml Insuln.pen 65 Units SQ QHS 30 Days Hydrocodone-Apap 10-325 (Hydrocodone Bit/Acetaminophen) 1 Each Tablet 1 Tab PO PRN Q4HRS PRN Children's Aspirin (Aspirin) 81 Mg Tab.chew 81 Mg PO DAILYWBKFT Reported Nexium Capsule (Esomeprazole Magnesium) 40 Mg Capsule.dr 1 Cap PO DAILY Amlodipine Besylate 10 Mg Tablet 10 Mg PO DAILY Ranitidine Hcl 150 Mg Capsule 1 Cap PO DAILY Doxazosin Mesylate 4 Mg Tablet 1 Tab PO DAILY Nicotine Patch (Nicotine) 1 Each Patch.td24 1 Patch TP DAILY Diovan (Valsartan) 320 Mg Tablet 320 Mg PO DAILY Crestor (Rosuvastatin Calcium) 20 Mg Tablet 20 Mg PO QHS Levemir Flexpen (Insulin Detemir) 100 Unit/1 Ml Insuln.pen 50 Unit SQ HS Novolog Flexpen (Insulin Aspart) 100 Unit/1 Ml Insuln.pen 20 Unit SQ TIDAC Allergies Allergies: Coded Allergies: Sulfa (Sulfonamide Antibiotics) (Verified Allergy, Intermediate, Rash, 08/05/16) ROS Review of System GENERAL: No history of weight change, weakness or fevers. SKIN: No bruising, hair changes or rashes. EYES: No blurred, double or loss of vision. NOSE AND THROAT: No history of nosebleeds, hoarseness or sore throat. HEART: Chest pain. Denies palpitations. LUNGS: Shortness of breath. Denies cough, hemoptysis, wheezing. GASTROINTESTINAL: Denies nausea, vomiting, abdominal pain. GENITOURINARY: Denies dysuria, frequency, urgency, hematuria. NEUROLOGIC: Denies history of numbness, tingling, tremor or weakness. PSYCHIATRIC: Denies anxiety, denies depression. ENDOCRINE: No history of heat or cold intolerance, polyuria or polydipsia. EXTREMITIES: Denies muscle weakness, joint pain, pain on walking or stiffness. Physical Exam Physical Exam General: Alert, Oriented X3, Cooperative, mild distress. Morbidly obese HEENT: Atraumatic, EOMI Lungs: Faint breath sounds, bibasilar rales. Currently breathing on BiPAP Heart: RRR, no rubs Cardiovascular: S1, S2 Abdomen: Normal bowel sounds, Soft, No tenderness Extremities: 2+ bilateral leg edema Skin: No breakdown, No significant lesion Neuro: Normal speech, Sensation intact Psych/Mental Status: Mental status NL, Mood NL Vitals Vitals Vital Signs Date Time Temp Pulse Resp B/P (MAP) Pulse Ox O2 Delivery O2 Flow Rate FiO2 10/20/20 14:30 66 28 187/78 (114) 97 BiPAP/CPAP 10/20/20 11:38 98.1 98.1 Labs Labs Laboratory Tests Test 10/20/20 11:38 10/20/20 12:11 O2 Saturation 92 % (92-99) Arterial Blood pH 7.37 (7.35-7.45) Arterial Blood pCO2 at Patient Temp 39 mmHg (35-46) Arterial Blood pO2 at Patient Temp 65 mmHg (75-108) Arterial Blood HCO3 22 mmol/L (21-28) Arterial Blood Base Excess -3 mmol/L (-3-3) FiO2 21/bipap White Blood Count 6.1 x10^3/uL (4.0-11.0) Red Blood Count 2.88 x10^6/uL (4.30-5.70) Hemoglobin 8.3 g/dL (13.0-17.5) Hematocrit 25.7 % (39.0-53.0) Mean Corpuscular Volume 89 fL (79-100) Mean Corpuscular Hemoglobin 29 pg (25-35) Mean Corpuscular Hemoglobin Concent 32 g/dL (31-37) Red Cell Distribution Width 14.6 % (11.5-14.5) Platelet Count 246 x10^3/uL (140-400) Neutrophils (%) (Auto) 78 % (31-73) Lymphocytes (%) (Auto) 14 % (24-48) Monocytes (%) (Auto) 5 % (0-9) Eosinophils (%) (Auto) 2 % (0-3) Basophils (%) (Auto) 1 % (0-3) Neutrophils # (Auto) 4.8 x10^3/uL (1.8-7.7) Lymphocytes # (Auto) 0.9 x10^3/uL (1.0-4.8) Monocytes # (Auto) 0.3 x10^3/uL (0.0-1.1) Eosinophils # (Auto) 0.1 x10^3/uL (0.0-0.7) Basophils # (Auto) 0.1 x10^3/uL (0.0-0.2) Sodium Level 144 mmol/L (136-145) Potassium Level 5.1 mmol/L (3.5-5.1) Chloride Level 111 mmol/L (98-107) Carbon Dioxide Level 21 mmol/L (21-32) Anion Gap 12 (6-14) Blood Urea Nitrogen 29 mg/dL (8-26) Creatinine 2.2 mg/dL (0.7-1.3) Estimated GFR (Cockcroft-Gault) 37.7 BUN/Creatinine Ratio 13 (6-20) Glucose Level 112 mg/dL (70-99) Calcium Level 9.5 mg/dL (8.5-10.1) Magnesium Level 2.2 mg/dL (1.8-2.4) Total Bilirubin 0.4 mg/dL (0.2-1.0) Aspartate Amino Transf (AST/SGOT) 13 U/L (15-37) Alanine Aminotransferase (ALT/SGPT) 21 U/L (16-63) Alkaline Phosphatase 70 U/L (46-116) Troponin I Quantitative 0.025 ng/mL (0.000-0.055) NH-Ayb-M-Type Natriuretic Peptide 3029 pg/mL (0-124) Total Protein 7.3 g/dL (6.4-8.2) Albumin 3.1 g/dL (3.4-5.0) Albumin/Globulin Ratio 0.7 (1.0-1.7) Laboratory Tests Test 10/20/20 11:38 10/20/20 12:11 O2 Saturation 92 % (92-99) Arterial Blood pH 7.37 (7.35-7.45) Arterial Blood pCO2 at Patient Temp 39 mmHg (35-46) Arterial Blood pO2 at Patient Temp 65 mmHg (75-108) Arterial Blood HCO3 22 mmol/L (21-28) Arterial Blood Base Excess -3 mmol/L (-3-3) FiO2 21/bipap White Blood Count 6.1 x10^3/uL (4.0-11.0) Red Blood Count 2.88 x10^6/uL (4.30-5.70) Hemoglobin 8.3 g/dL (13.0-17.5) Hematocrit 25.7 % (39.0-53.0) Mean Corpuscular Volume 89 fL (79-100) Mean Corpuscular Hemoglobin 29 pg (25-35) Mean Corpuscular Hemoglobin Concent 32 g/dL (31-37) Red Cell Distribution Width 14.6 % (11.5-14.5) Platelet Count 246 x10^3/uL (140-400) Neutrophils (%) (Auto) 78 % (31-73) Lymphocytes (%) (Auto) 14 % (24-48) Monocytes (%) (Auto) 5 % (0-9) Eosinophils (%) (Auto) 2 % (0-3) Basophils (%) (Auto) 1 % (0-3) Neutrophils # (Auto) 4.8 x10^3/uL (1.8-7.7) Lymphocytes # (Auto) 0.9 x10^3/uL (1.0-4.8) Monocytes # (Auto) 0.3 x10^3/uL (0.0-1.1) Eosinophils # (Auto) 0.1 x10^3/uL (0.0-0.7) Basophils # (Auto) 0.1 x10^3/uL (0.0-0.2) Sodium Level 144 mmol/L (136-145) Potassium Level 5.1 mmol/L (3.5-5.1) Chloride Level 111 mmol/L (98-107) Carbon Dioxide Level 21 mmol/L (21-32) Anion Gap 12 (6-14) Blood Urea Nitrogen 29 mg/dL (8-26) Creatinine 2.2 mg/dL (0.7-1.3) Estimated GFR (Cockcroft-Gault) 37.7 BUN/Creatinine Ratio 13 (6-20) Glucose Level 112 mg/dL (70-99) Calcium Level 9.5 mg/dL (8.5-10.1) Magnesium Level 2.2 mg/dL (1.8-2.4) Total Bilirubin 0.4 mg/dL (0.2-1.0) Aspartate Amino Transf (AST/SGOT) 13 U/L (15-37) Alanine Aminotransferase (ALT/SGPT) 21 U/L (16-63) Alkaline Phosphatase 70 U/L (46-116) Troponin I Quantitative 0.025 ng/mL (0.000-0.055) UC-Vgu-I-Type Natriuretic Peptide 3029 pg/mL (0-124) Total Protein 7.3 g/dL (6.4-8.2) Albumin 3.1 g/dL (3.4-5.0) Albumin/Globulin Ratio 0.7 (1.0-1.7) Images Images XR CHEST 1V Clinical Indication: Reason: SOA / Spl. Instructions: / History: Comparison: AP chest September 14, 2019. Findings: The cardiomediastinal silhouette is normal. The pulmonary vasculature is upper limits of normal. Lungs are clear. There is no pneumothorax. No pleural effusion is appreciated. No acute bone abnormality. IMPRESSION: No acute cardiopulmonary process. VTE Prophylaxis Ordered VTE Prophylaxis Devices: No VTE Pharmacological Prophylaxi: Yes Assessment/Plan Assessment/Plan A/P: Acute respiratory failure with hypoxia -he takes Lasix 80 mg twice daily and has not had his medications today. We will provide IV Lasix 80 mg x 1 and resume home Lasix. Acute diastolic heart failure - last echocardiogram on 09/14/2019 showed EF 65- 70%, severe concentric left ventricular hypertrophy, aortic stenosis. Will obtain limited echo and consult cardiology. Elevated brain natriuretic peptide (BNP) level - likely secondary to some congestion, pulmonary HTN Pulmonary HTN - multifactorial likely from cocaine abuse, possible underlying COPD or CHF. Limited echocardiogram pending. CKD - patient notes baseline CKD stage IV. Will consult nephrology for further recommendations given patient will likely require aggressive diuresis. Normocytic anemia - likely secondary to CKD and anemia of chronic disease Hypertensive urgency - needs better management; will resume home medications and provide IV blood pressure parameters DM2 - will initiate basal/prandial insulin Right breast mass - given family history of breast cancer will obtain right breast ultrasound COVID-19 PUI - COVID-19 pending Malnutrition Resume home medications FEN - Cardiac PPX - heparin FULL CODE Dispo - inpatient for acute chest pain Justifications for Admission Other Justification ASIA GLYNN MD Oct 20, 2020 15:37
[2020-10-20] MEDS ORDERED: FUROSEMIDE 100 MG/10 ML VIAL. IVP ONE (15:45)
[2020-10-20] MEDS ORDERED: DEXTROSE 50% 25 GM / 50ML DISP.SYRIN. IV PRN (15:45)
[2020-10-20 16:00] VITALS: BP 221/65
[2020-10-20] MEDS ORDERED: MAG HYDROX/ALUMINUM HYD/SIMETH 30 ML ORAL.SUSP PO PRN (16:15)
[2020-10-20] MEDS ORDERED: BISACODYL 10 MG SUPP.RECT. PR PRN (16:15)
[2020-10-20] MEDS ORDERED: CALCIUM CARBONATE 500 MG TAB.CHEW PO PRN (16:15)
[2020-10-20] MEDS ORDERED: MAGNESIUM HYDROXIDE 2,400 MG/30 ML ORAL.SUSP. PO PRN (16:15)
[2020-10-20] MEDS: hydrALAZINE 20 MG/ML VIAL. IVP PRN (16:28)
[2020-10-20] MEDS: HEPARIN for SUB-Q USE 5,000 UNIT/ML VIAL. SQ SCH ×2 (16:44→21:42)
[2020-10-20] MEDS: INSULIN LISPRO 300 UNITS/3 ML VIAL. SQ SCH ×2 (16:45→18:21)
[2020-10-20] MEDS ORDERED: GABA600T7 PO (17:20)
[2020-10-20] MEDS ORDERED: FURO80TA72 PO (17:20)
[2020-10-20] MEDS ORDERED: ERGO500027 PO (17:20)
[2020-10-20] MEDS ORDERED: PANT40TA77 PO (17:20)
[2020-10-20] MEDS ORDERED: SPIR25TA5 PO (17:20)
[2020-10-20] MEDS ORDERED: CARV25TA2 PO (17:20)
[2020-10-20] MEDS ORDERED: SENN1TAB99 PO (17:20)
[2020-10-20] MEDS ORDERED: HYDR100T24 PO (17:20)
[2020-10-20] MEDS ORDERED: ISOS40TA10 PO (17:20)
[2020-10-20] MEDS ORDERED: CLOP75TA PO (17:20)
[2020-10-20] MEDS ORDERED: SENNOSIDES/DOCUSATE 8.6/50MG TABLET. PO PRN (17:30)
[2020-10-20] MEDS: CARVEDILOL 12.5 MG TABLET. PO SCH (18:01)
[2020-10-20] MEDS: FUROSEMIDE 80 MG TABLET. PO SCH (18:01)
[2020-10-20] MEDS: PANTOPRAZOLE 40 MG TABLET.DR. PO SCH (18:01)
[2020-10-20 19:42] VITALS: BP 132/67
[2020-10-20] MEDS: INSULIN GLARGINE SYRINGE. SQ SCH (21:38)
[2020-10-20] MEDS: MORPHINE SULFATE 4 MG/ML VIAL. IV PRN (21:39)
[2020-10-20] MEDS: ZOLPIDEM 5 MG TABLET. PO PRN (21:39)
[2020-10-20] MEDS: ATORVASTATIN CALCIUM 40 MG TABLET. PO SCH (21:40)
[2020-10-20] MEDS: ISOSORBIDE DINITRATE 10 MG TABLET. PO SCH (21:40)
[2020-10-20] MEDS: GABAPENTIN 300 MG CAPSULE. PO SCH (21:40)
[2020-10-20 22:24] VITALS: BP 136/79
[2020-10-21] MEDS: MORPHINE SULFATE 4 MG/ML VIAL. IV PRN ×5 (00:23→19:24)
[2020-10-21 02:30] VITALS: BP 141/55
[2020-10-21] MEDS: HEPARIN for SUB-Q USE 5,000 UNIT/ML VIAL. SQ SCH ×3 (04:58→21:33)
[2020-10-21 05:19] LABS: HEMOGLOBIN 7.3 g/dL (13.0-17.5); RED BLOOD COUNT 2.58 x10^6/uL (4.30-5.70); RED CELL DISTRIBUTION WIDTH 14.7 % (11.5-14.5); WHITE BLOOD COUNT 5.4 x10^3/uL (4.0-11.0)
[2020-10-21 05:32] LABS: CALCIUM 8.6 mg/dL (8.5-10.1); CREATININE 2.4 mg/dL (0.7-1.3); GFR 34.1
--- NOTE | 2020-10-21 06:42 | PDOC ---
[facility] PROGRESS NOTE Date of Service DOS: DATE: 10/21/20 TIME: 06:36 Chief Complaint Chief Complaint A/P: Acute respiratory failure with hypoxia -he takes Lasix 80 mg twice daily and has not had his medications today. We will provide IV Lasix 80 mg x 1 and resume home Lasix. Acute diastolic heart failure - last echocardiogram on 09/14/2019 showed EF 65- 70%, severe concentric left ventricular hypertrophy, aortic stenosis. Will obtain limited echo and consult cardiology. Elevated brain natriuretic peptide (BNP) level - likely secondary to some congestion, pulmonary HTN Pulmonary HTN - multifactorial likely from cocaine abuse, possible underlying COPD or CHF. Limited echocardiogram pending. CKD - patient notes baseline CKD stage IV. Will consult nephrology for further recommendations given patient will likely require aggressive diuresis. Normocytic anemia - likely secondary to CKD and anemia of chronic disease Hypertensive urgency - needs better management; will resume home medications and provide IV blood pressure parameters DM2 - will initiate basal/prandial insulin Right breast mass - given family history of breast cancer will obtain right breast ultrasound COVID-19 PUI - COVID-19 pending Malnutrition Resume home medications History of Present Illness History of Present Illness Mr Moran is a 54yo M w/ PMHx Diabetes-Type II, High Cholesterol, Hypertension, Pancreatitis, CKD 4, presents to the ER with complaint of worsening shortness of breath of the past 3 days. He reports associated intermittent chest pain and bilateral lower extremity swelling. States his symptoms are worse with exertion. Upon arrival in the ED his BNP was 3029. He was placed on BiPAP given IV morphine with improvement of symptoms. States he has not taken any of his home medications today. He does report a tender lump in his right breast for the past 3 weeks, reports a family history of breast cancer. He denies any fever, sick contacts, or known COVID-19 exposure. Will admit patient for further medical management. 10/21: Patient seen and evaluated. Improved on BiPAP overnight. Afebrile, denies chest pain. Blood pressure better controlled. CBG 323 this morning. Of note patient did order two trays of nondiabetic meals, and had fried chicken delivered to his room last night. Discussed importance of cardiac and diabetic diet for his heart health. Continue to diurese with Lasix. Echocardiogram and ultrasound right breast pending. If appropriately diuresed and no concerning findings on right breast ultrasound, may discharge tomorrow. Vitals/I&O Vitals/I&O: Vital Signs Date Time Temp Pulse Resp B/P (MAP) Pulse Ox O2 Delivery O2 Flow Rate FiO2 10/21/20 05:27 2.0 10/21/20 04:57 Nasal Cannula 10/21/20 02:30 97.9 72 22 141/55 (83) 94 97.9 I & O 10/20/20 10/20/20 10/21/20 15:00 23:00 07:00 Intake Total 180 ml 880 ml Output Total 650 ml 500 ml Balance -470 ml 380 ml Physical Exam General: Alert, Oriented X3, No acute distress Heart: Regular rate Lungs: Crackles Abdomen: Soft, No tenderness Extremities: Other (2+ bilateral lower extremity edema) Skin: No rashes, No breakdown Labs Labs: Laboratory Tests Test 10/20/20 11:38 10/20/20 12:11 10/20/20 17:59 10/20/20 20:15 O2 Saturation 92 % (92-99) Arterial Blood pH 7.37 (7.35-7.45) Arterial Blood pCO2 at Patient Temp 39 mmHg (35-46) Arterial Blood pO2 at Patient Temp 65 mmHg (75-108) Arterial Blood HCO3 22 mmol/L (21-28) Arterial Blood Base Excess -3 mmol/L (-3-3) FiO2 21/bipap White Blood Count 6.1 x10^3/uL (4.0-11.0) Red Blood Count 2.88 x10^6/uL (4.30-5.70) Hemoglobin 8.3 g/dL (13.0-17.5) Hematocrit 25.7 % (39.0-53.0) Mean Corpuscular Volume 89 fL (79-100) Mean Corpuscular Hemoglobin 29 pg (25-35) Mean Corpuscular Hemoglobin Concent 32 g/dL (31-37) Red Cell Distribution Width 14.6 % (11.5-14.5) Platelet Count 246 x10^3/uL (140-400) Neutrophils (%) (Auto) 78 % (31-73) Lymphocytes (%) (Auto) 14 % (24-48) Monocytes (%) (Auto) 5 % (0-9) Eosinophils (%) (Auto) 2 % (0-3) Basophils (%) (Auto) 1 % (0-3) Neutrophils # (Auto) 4.8 x10^3/uL (1.8-7.7) Lymphocytes # (Auto) 0.9 x10^3/uL (1.0-4.8) Monocytes # (Auto) 0.3 x10^3/uL (0.0-1.1) Eosinophils # (Auto) 0.1 x10^3/uL (0.0-0.7) Basophils # (Auto) 0.1 x10^3/uL (0.0-0.2) Sodium Level 144 mmol/L (136-145) Potassium Level 5.1 mmol/L (3.5-5.1) Chloride Level 111 mmol/L (98-107) Carbon Dioxide Level 21 mmol/L (21-32) Anion Gap 12 (6-14) Blood Urea Nitrogen 29 mg/dL (8-26) Creatinine 2.2 mg/dL (0.7-1.3) Estimated GFR (Cockcroft-Gault) 37.7 BUN/Creatinine Ratio 13 (6-20) Glucose Level 112 mg/dL (70-99) Calcium Level 9.5 mg/dL (8.5-10.1) Magnesium Level 2.2 mg/dL (1.8-2.4) Total Bilirubin 0.4 mg/dL (0.2-1.0) Aspartate Amino Transf (AST/SGOT) 13 U/L (15-37) Alanine Aminotransferase (ALT/SGPT) 21 U/L (16-63) Alkaline Phosphatase 70 U/L (46-116) Troponin I Quantitative 0.025 ng/mL (0.000-0.055) PG-Agd-E-Type Natriuretic Peptide 3029 pg/mL (0-124) Total Protein 7.3 g/dL (6.4-8.2) Albumin 3.1 g/dL (3.4-5.0) Albumin/Globulin Ratio 0.7 (1.0-1.7) Glucose (Fingerstick) 210 mg/dL (70-99) 269 mg/dL (70-99) Test 10/21/20 05:00 Sodium Level 140 mmol/L (136-145) Potassium Level 5.0 mmol/L (3.5-5.1) Chloride Level 107 mmol/L (98-107) Carbon Dioxide Level 24 mmol/L (21-32) Anion Gap 9 (6-14) Blood Urea Nitrogen 32 mg/dL (8-26) Creatinine 2.4 mg/dL (0.7-1.3) Estimated GFR (Cockcroft-Gault) 34.1 Glucose Level 323 mg/dL (70-99) Calcium Level 8.6 mg/dL (8.5-10.1) Iron Level 46 ug/dL (65-175) Total Iron Binding Capacity 254 ug/dL (250-450) Iron Saturation 18 % (15-34) Troponin I Quantitative 0.045 ng/mL (0.000-0.055) Assessment and Plan Assessmemt and Plan Problems Medical Problems: (1) Chest pain Status: Acute (2) CHF exacerbation Status: Acute (3) HTN (hypertension) Status: Acute (4) Person under investigation for COVID-19 Status: Acute Comment Review of Relevant I have reviewed the following items karissa (where applicable) has been applied. Medications: Current Medications Medications (Trade) Dose Ordered Sig/Kiera Route PRN Reason Start Time Stop Time Status Last Admin Dose Admin Nitroglycerin (Nitro-Bid Oint) 1 inch 1X ONCE TP 10/20/20 13:15 10/20/20 13:16 DC 10/20/20 13:22 Morphine Sulfate (Morphine Sulfate) 4 mg 1X ONCE IV 10/20/20 13:15 10/20/20 13:16 DC 10/20/20 13:23 Furosemide (Lasix) 80 mg 1X ONCE IVP 10/20/20 15:45 10/20/20 15:46 DC 10/20/20 16:25 Hydralazine HCl (Apresoline Inj) 10 mg PRN Q20MIN PRN IVP ELEVATED BP, SEE COMMENTS 10/20/20 15:30 10/20/20 16:28 Insulin Human Lispro (HumaLOG) 0-9 UNITS TIDWMEALS SQ 10/20/20 17:00 10/20/20 18:21 Zolpidem Tartrate (Ambien) 5 mg PRN QHS PRN PO INSOMNIA, MAY REPEAT IN 1HR 10/20/20 16:15 10/20/20 21:39 Heparin Sodium (Porcine) (Heparin Sodium) 5,000 unit Q8HRS SQ 10/20/20 16:30 2/5/21 04:58 Morphine Sulfate (Morphine Sulfate) 4 mg PRN Q2HR PRN IV MODERATE TO SEVERE PAIN 10/20/20 16:30 10/21/20 04:57 Furosemide (Lasix) 80 mg BID92 PO 10/20/20 17:30 10/20/20 18:01 Pantoprazole Sodium (Protonix) 40 mg BIDAC PO 10/20/20 17:30 10/20/20 18:01 Carvedilol (Coreg) 25 mg BIDWMEALS PO 10/20/20 17:30 10/20/20 18:01 Gabapentin (Neurontin) 300 mg TID PO 10/20/20 21:00 10/20/20 21:40 Hydralazine HCl (Apresoline) 100 mg TID PO 10/20/20 21:00 10/20/20 21:40 Insulin Glargine (Lantus Syringe) 60 unit QHS SQ 10/20/20 21:00 10/20/20 21:38 Isosorbide Dinitrate (Isordil) 5 mg TID PO 10/20/20 21:00 10/20/20 21:40 Atorvastatin Calcium (Lipitor) 80 mg QHS PO 10/20/20 21:00 10/20/20 21:40 Lorazepam (Ativan Inj) 1 mg PRN Q4HRS PRN IVP ANXIETY / AGITATION 10/20/20 17:30 10/20/20 18:02 Justifications for Admission Other Justification Acute respiratory failure with hypoxia, acute diastolic CHF exacerbation, right breast mass ASIA GLYNN MD Oct 21, 2020 06:42
[2020-10-21 07:00] VITALS: BP 177/71
[2020-10-21] MEDS: TAMSULOSIN 0.4 MG CAP.ER.24H. PO SCH (08:51)
[2020-10-21] MEDS: ASPIRIN CHEWABLE 81 MG TABLET. PO SCH (08:51)
[2020-10-21] MEDS: CLOPIDOGREL BISULFATE 75 MG TABLET PO SCH (08:51)
[2020-10-21] MEDS: GABAPENTIN 300 MG CAPSULE. PO SCH ×3 (08:51→21:25)
[2020-10-21] MEDS: CARVEDILOL 12.5 MG TABLET. PO SCH ×2 (08:51→16:13)
[2020-10-21] MEDS: amLODIPine BESYLATE 10 MG TABLET PO SCH (08:52)
[2020-10-21] MEDS: PANTOPRAZOLE 40 MG TABLET.DR. PO SCH ×2 (08:52→16:12)
[2020-10-21] MEDS: ISOSORBIDE DINITRATE 10 MG TABLET. PO SCH ×3 (08:53→21:26)
[2020-10-21] MEDS: FUROSEMIDE 80 MG TABLET. PO SCH ×3 (08:54→16:13)
[2020-10-21] MEDS: INSULIN LISPRO 300 UNITS/3 ML VIAL. SQ SCH ×6 (08:56→16:44)
[2020-10-21] MEDS ORDERED: SPIRONOLACTONE 25 MG TABLET PO SCH (09:00)
--- NOTE | 2020-10-21 10:30 | PDOC2 ---
CARDIAC CONSULT DATE OF CONSULT Date of Consult DATE: 10/21/20 TIME: 10:19 REASON FOR CONSULT Reason for Consult: CHF, chest pain REFERRING PHYSICIAN Referring Physician: Jevon SOURCE Source: Chart review, Patient HISTORY OF PRESENT ILLNESS HISTORY OF PRESENT ILLNESS This is a pleasant 55 yo male admitted for complains of shortness of breath. Reports that he has been increasingly getting SOA in the last 3 days with incr eased leg swelling and also with difficulty laying flat and waking at night SOA. Also complains of mid chest pain described as sharp mainly with deep breathing and positional changes. He reports med compliance but I discussed with his RN and his medication bottles were reviewed and has been sporadically used with some bottles still full despite being filled a while back which likely he has not been complaint with his meds. Also his BG has been running in the 200s at home. He does not check his BP readings and failed to follow up in office. He snorted cocaine last Saturday. Denies n/v/d and no fever or chills. Reports CPAP compliance. PAST MEDICAL HISTORY Past Medical History Cardiovascular: CHF, HTN, Hyperlipidemia, Other (PAD) Pulmonary: COPD, Pneumonia, Other (ROXANNE) CENTRAL NERVOUS SYSTEM: CVA, Peripheral neuropathy GI: GERD Musculoskeletal: Osteoarthritis Renal/: Chronic renal insuff, Benign prostatic enlarg. Endocrine: Diabetes PAST SURGICAL HISTORY Past Surgical History: Cholecystectomy, Hernia Repair FAMILY HISTORY Family History: Hypertension SOCIAL HISTORY Smoke: <1 pack per day ALCOHOL: none Drugs: Cocaine Lives: Alone CURRENT MEDICATIONS CURRENT MEDICATIONS Current Medications Medications (Trade) Dose Ordered Sig/Kiera Route PRN Reason Start Time Stop Time Status Last Admin Dose Admin Nitroglycerin (Nitro-Bid Oint) 1 inch 1X ONCE TP 10/20/20 13:15 10/20/20 13:16 DC 10/20/20 13:22 Morphine Sulfate (Morphine Sulfate) 4 mg 1X ONCE IV 10/20/20 13:15 10/20/20 13:16 DC 10/20/20 13:23 Furosemide (Lasix) 80 mg 1X ONCE IVP 10/20/20 15:45 10/20/20 15:46 DC 10/20/20 16:25 Hydralazine HCl (Apresoline Inj) 10 mg PRN Q20MIN PRN IVP ELEVATED BP, SEE COMMENTS 10/20/20 15:30 10/20/20 16:28 Insulin Human Lispro (HumaLOG) 0-9 UNITS TIDWMEALS SQ 10/20/20 17:00 10/21/20 08:56 Zolpidem Tartrate (Ambien) 5 mg PRN QHS PRN PO INSOMNIA, MAY REPEAT IN 1HR 10/20/20 16:15 10/20/20 21:39 Heparin Sodium (Porcine) (Heparin Sodium) 5,000 unit Q8HRS SQ 10/20/20 16:30 10/21/20 04:58 Morphine Sulfate (Morphine Sulfate) 4 mg PRN Q2HR PRN IV MODERATE TO SEVERE PAIN 10/20/20 16:30 10/21/20 04:57 Amlodipine Besylate (Norvasc) 10 mg DAILY PO 10/21/20 09:00 10/21/20 08:52 Aspirin (Aspirin Chewable) 81 mg DAILYWBKFT PO 10/21/20 08:00 10/21/20 08:51 Clopidogrel Bisulfate (Plavix) 75 mg DAILY PO 10/21/20 09:00 10/21/20 08:51 Furosemide (Lasix) 80 mg BID92 PO 10/20/20 17:30 10/21/20 09:37 DC 10/21/20 08:54 Pantoprazole Sodium (Protonix) 40 mg BIDAC PO 10/20/20 17:30 10/21/20 08:52 Spironolactone (Aldactone) 25 mg DAILY PO 10/21/20 09:00 10/21/20 08:52 Tamsulosin HCl (Flomax) 0.4 mg DAILY PO 10/21/20 09:00 10/21/20 08:51 Carvedilol (Coreg) 25 mg BIDWMEALS PO 10/20/20 17:30 10/21/20 08:51 Gabapentin (Neurontin) 300 mg TID PO 10/20/20 21:00 10/21/20 08:51 Hydralazine HCl (Apresoline) 100 mg TID PO 10/20/20 21:00 10/21/20 08:52 Insulin Human Lispro (HumaLOG) 30 units TIDWMEALS SQ 10/21/20 08:00 10/21/20 08:57 Insulin Glargine (Lantus Syringe) 60 unit QHS SQ 10/20/20 21:00 10/20/20 21:38 Isosorbide Dinitrate (Isordil) 5 mg TID PO 10/20/20 21:00 10/21/20 08:53 Atorvastatin Calcium (Lipitor) 80 mg QHS PO 10/20/20 21:00 10/20/20 21:40 Lorazepam (Ativan Inj) 1 mg PRN Q4HRS PRN IVP ANXIETY / AGITATION 10/20/20 17:30 10/20/20 18:02 ALLERGIES ALLERGIES: Coded Allergies: Sulfa (Sulfonamide Antibiotics) (Verified Allergy, Intermediate, Rash, 08/05/16) ROS Review of System 14 point ROS evaluated with pertinent positives noted per HPI PHYSICAL EXAM General: Alert, Oriented X3, Cooperative, No acute distress HEENT: Atraumatic, Mucous membr. moist/pink Lungs: Other (bipap in place) Heart: Regular rate (SR), Other (distant heart sounds) Abdomen: Soft Extremities: No cyanosis, Other (2+ bilateral LE pitting edema) Skin: No breakdown, No significant lesion Neuro: Normal speech, Sensation intact Psych/Mental Status: Mental status NL, Mood NL MUSCULOSKELETAL: Osteoarthritic changes both hands VITALS/I&O VITALS/I&O: Vital Signs Date Time Temp Pulse Resp B/P (MAP) Pulse Ox O2 Delivery O2 Flow Rate FiO2 10/21/20 08:53 74 177/71 10/21/20 07:00 98.0 20 99 Nasal Cannula 2.0 98.0 I & O 10/20/20 10/20/20 10/21/20 15:00 23:00 07:00 Intake Total 180 ml 880 ml Output Total 650 ml 500 ml Balance -470 ml 380 ml LABS Lab: Laboratory Tests Test 10/20/20 11:38 10/20/20 12:11 10/20/20 17:59 10/20/20 20:15 O2 Saturation 92 % (92-99) Arterial Blood pH 7.37 (7.35-7.45) Arterial Blood pCO2 at Patient Temp 39 mmHg (35-46) Arterial Blood pO2 at Patient Temp 65 mmHg (75-108) L Arterial Blood HCO3 22 mmol/L (21-28) Arterial Blood Base Excess -3 mmol/L (-3-3) FiO2 21/bipap White Blood Count 6.1 x10^3/uL (4.0-11.0) Red Blood Count 2.88 x10^6/uL (4.30-5.70) L Hemoglobin 8.3 g/dL (13.0-17.5) L Hematocrit 25.7 % (39.0-53.0) L Mean Corpuscular Volume 89 fL (79-100) Mean Corpuscular Hemoglobin 29 pg (25-35) Mean Corpuscular Hemoglobin Concent 32 g/dL (31-37) Red Cell Distribution Width 14.6 % (11.5-14.5) H Platelet Count 246 x10^3/uL (140-400) Neutrophils (%) (Auto) 78 % (31-73) H Lymphocytes (%) (Auto) 14 % (24-48) L Monocytes (%) (Auto) 5 % (0-9) Eosinophils (%) (Auto) 2 % (0-3) Basophils (%) (Auto) 1 % (0-3) Neutrophils # (Auto) 4.8 x10^3/uL (1.8-7.7) Lymphocytes # (Auto) 0.9 x10^3/uL (1.0-4.8) L Monocytes # (Auto) 0.3 x10^3/uL (0.0-1.1) Eosinophils # (Auto) 0.1 x10^3/uL (0.0-0.7) Basophils # (Auto) 0.1 x10^3/uL (0.0-0.2) Sodium Level 144 mmol/L (136-145) Potassium Level 5.1 mmol/L (3.5-5.1) Chloride Level 111 mmol/L (98-107) H Carbon Dioxide Level 21 mmol/L (21-32) Anion Gap 12 (6-14) Blood Urea Nitrogen 29 mg/dL (8-26) H Creatinine 2.2 mg/dL (0.7-1.3) H Estimated GFR (Cockcroft-Gault) 37.7 BUN/Creatinine Ratio 13 (6-20) Glucose Level 112 mg/dL (70-99) H Calcium Level 9.5 mg/dL (8.5-10.1) Magnesium Level 2.2 mg/dL (1.8-2.4) Total Bilirubin 0.4 mg/dL (0.2-1.0) Aspartate Amino Transferase (AST) 13 U/L (15-37) L Alanine Aminotransferase (ALT) 21 U/L (16-63) Alkaline Phosphatase 70 U/L (46-116) Troponin I Quantitative 0.025 ng/mL (0.000-0.055) NL-Zuy-V-Type Natriuretic Peptide 3029 pg/mL (0-124) H Total Protein 7.3 g/dL (6.4-8.2) Albumin 3.1 g/dL (3.4-5.0) L Albumin/Globulin Ratio 0.7 (1.0-1.7) L Glucose (Fingerstick) 210 mg/dL (70-99) H 269 mg/dL (70-99) H Test 10/21/20 05:00 10/21/20 07:55 White Blood Count 5.4 x10^3/uL (4.0-11.0) Red Blood Count 2.58 x10^6/uL (4.30-5.70) L Hemoglobin 7.3 g/dL (13.0-17.5) L Hematocrit 23.0 % (39.0-53.0) L Mean Corpuscular Volume 89 fL (79-100) Mean Corpuscular Hemoglobin 28 pg (25-35) Mean Corpuscular Hemoglobin Concent 32 g/dL (31-37) Red Cell Distribution Width 14.7 % (11.5-14.5) H Platelet Count 233 x10^3/uL (140-400) Sodium Level 140 mmol/L (136-145) Potassium Level 5.0 mmol/L (3.5-5.1) Chloride Level 107 mmol/L (98-107) Carbon Dioxide Level 24 mmol/L (21-32) Anion Gap 9 (6-14) Blood Urea Nitrogen 32 mg/dL (8-26) H Creatinine 2.4 mg/dL (0.7-1.3) H Estimated GFR (Cockcroft-Gault) 34.1 Glucose Level 323 mg/dL (70-99) H Calcium Level 8.6 mg/dL (8.5-10.1) Iron Level 46 ug/dL (65-175) L Total Iron Binding Capacity 254 ug/dL (250-450) Iron Saturation 18 % (15-34) Troponin I Quantitative 0.045 ng/mL (0.000-0.055) Glucose (Fingerstick) 281 mg/dL (70-99) H Laboratory Tests 10/20/20 12:11 10/21/20 05:00 Laboratory Tests 10/20/20 12:11 10/21/20 05:00 ECHOCARDIOGRAM ECHOCARDIOGRAM <Conclusion> The left ventricular systolic function is normal and the ejection fraction is within normal range. The Ejection Fraction is 65-70%. There is grossly normal LV segmental wall motion. Technically limited images. There is severe concentric left ventricular hypertrophy. DATE: 09/14/19 6901 ASSESSMENT/PLAN ASSESSMENT/PLAN 1. Acute on chronic diastolic CHF: due to noncompliance and continued cocaine use 2. AECOPD with continued tobaccoism 3. ROXANNE: uses CPAP at home 4. 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 Substance abuse: uses cocaine 6. Tobaccoism: last use Saturday 7. HTN urgency: improved 8. PAD: prior bypass, clinically stable 9. HLP 10. DM2: reports 200s usually at home 11. Atypical CP: possibly MSK 12. PUI: negative for covid 13. Normocytic anemia likely from chronic disease: Hgb 7.3 no obvious bleed Recommendations 1. Lasix therapy, received IV lasix yesterday.Continue current PO dosing. 2. Discussed compliance with meds and diet and cocaine cessation. Smoking cessation 3. Continue ASA/plavix 4. DC aldactone given his low GFR with K borderline high. 5. Continue current BP regimen 6. Bipap PRN. 7. Failed follow up with [facility] cardiology. Encourage to follow up with them and will need outpt ischemic workup 8. Check INR. HAILEE LOPEZ CONSULTING TECHNICAL MANAGER Oct 21, 2020 10:30
[2020-10-21 11:00] VITALS: BP 146/59
[2020-10-21 11:03] LABS: CHOLESTEROL/HDL RATIO 4.7
[2020-10-21] MEDS: ONDANSETRON PF 4 MG/2 ML VIAL. IVP PRN ×2 (13:56→19:21)
[2020-10-21 14:39] LABS: PROTHROMBIN TIME PATIENT 13.3 SEC (11.7-14.0)
[2020-10-21 15:00] VITALS: BP 110/61
[2020-10-21 19:40] VITALS: BP 174/82
[2020-10-21] MEDS: ATORVASTATIN CALCIUM 40 MG TABLET. PO SCH (21:25)
[2020-10-21] MEDS: INSULIN GLARGINE SYRINGE. SQ SCH (21:34)
[2020-10-21 23:05] VITALS: BP 108/41
[2020-10-22] MEDS: ONDANSETRON PF 4 MG/2 ML VIAL. IVP PRN ×2 (01:12→11:57)
[2020-10-22] MEDS: MORPHINE SULFATE 4 MG/ML VIAL. IV PRN ×3 (01:12→11:56)
[2020-10-22 03:35] VITALS: BP 115/42
[2020-10-22 04:54] LABS: CALCIUM 8.7 mg/dL (8.5-10.1); CREATININE 2.8 mg/dL (0.7-1.3); GFR 28.5; POTASSIUM 4.5 mmol/L (3.5-5.1)
[2020-10-22] MEDS: HEPARIN for SUB-Q USE 5,000 UNIT/ML VIAL. SQ SCH ×3 (06:11→21:16)
[2020-10-22 07:00] VITALS: BP 106/44
[2020-10-22] MEDS: ASPIRIN CHEWABLE 81 MG TABLET. PO SCH (08:29)
[2020-10-22] MEDS: INSULIN LISPRO 300 UNITS/3 ML VIAL. SQ SCH ×6 (08:29→17:00)
[2020-10-22] MEDS: TAMSULOSIN 0.4 MG CAP.ER.24H. PO SCH (08:29)
[2020-10-22] MEDS: ISOSORBIDE DINITRATE 10 MG TABLET. PO SCH ×3 (08:30→21:08)
[2020-10-22] MEDS: GABAPENTIN 300 MG CAPSULE. PO SCH ×3 (08:30→21:08)
[2020-10-22] MEDS: FUROSEMIDE 80 MG TABLET. PO SCH ×2 (08:30→15:06)
[2020-10-22] MEDS: amLODIPine BESYLATE 10 MG TABLET PO SCH (08:31)
[2020-10-22] MEDS: PANTOPRAZOLE 40 MG TABLET.DR. PO SCH ×2 (08:31→17:39)
[2020-10-22] MEDS: CARVEDILOL 12.5 MG TABLET. PO SCH ×2 (08:31→17:39)
[2020-10-22] MEDS: CLOPIDOGREL BISULFATE 75 MG TABLET PO SCH (08:33)
[2020-10-22 11:23] VITALS: BP 141/45
[2020-10-22 15:00] VITALS: BP 117/77
--- NOTE | 2020-10-22 15:56 | PDOC ---
GENERAL General: Patient examined chart reviewed today's hospital day 3 for this patient with extensive underlying multimorbidity admitted with acute on chronic diastolic congestive heart failure. He has chronic stage IV renal failure secondary to likely uncontrolled diabetes and blood pressure. His last creatinine in the record was about 2.3 in late 2019 and he is 2.8 now. We will ask nephrology for their input their assistance is appreciated. Cardiology has also been consulted and their assistance is appreciated. Patient is sleeping soundly on my assessme nt this afternoon he does not awaken on exam. We will continue current management. Problems: (1) Acute on chronic diastolic (congestive) heart failure (2) Renal insufficiency (3) HTN (hypertension) (4) DM (diabetes mellitus) VITAL SIGNS Vital Signs/I&O: Vital Signs Date Time Temp Pulse Resp B/P (MAP) Pulse Ox O2 Delivery O2 Flow Rate FiO2 10/22/20 15:07 74 141/45 10/22/20 12:19 16 91 3.0 10/22/20 11:23 98.4 BiPAP/CPAP 98.4 I & O 10/21/20 10/21/20 10/22/20 15:00 23:00 07:00 Intake Total 480 ml 600 ml 240 ml Output Total 800 ml 350 ml Balance 480 ml -200 ml -110 ml Patient is sleeping resting comfortably does not awaken for assessment today HEENT exam is unremarkable for acute abnormality Chest is clear to auscultation Heart S1-S2 normal regular rate and rhythm no murmurs or gallops are noted Abdomen is obese soft nontender nondistended Extremity exam is unremarkable for acute abnormality ALLERGIES Allergies: Allergies Coded Allergies Type Severity Reaction Last Updated Verified Sulfa (Sulfonamide Antibiotics) Allergy Intermediate Rash 08/05/16 Yes MEDS Medications: Current Medications Medications (Trade) Dose Ordered Sig/Kiera Start Time Stop Time Status Last Admin Dose Admin Acetaminophen (Tylenol) 650 mg PRN Q6HRS PRN 10/20/20 16:15 Al Hydroxide/Mg Hydroxide (Mylanta Plus Xs) 30 ml PRN Q3HRS PRN 10/20/20 16:15 Amlodipine Besylate (Norvasc) 10 mg DAILY 10/21/20 09:00 10/22/20 08:31 Aspirin (Aspirin Chewable) 81 mg DAILYWBKFT 10/21/20 08:00 10/22/20 08:29 Atorvastatin Calcium (Lipitor) 80 mg QHS 10/20/20 21:00 10/21/20 21:25 Bisacodyl (Dulcolax Supp) 10 mg PRN DAILY PRN 10/20/20 16:15 Calcium Carbonate/ Glycine (Tums) 500 mg PRN Q3HRS PRN 10/20/20 16:15 Carvedilol (Coreg) 25 mg BIDWMEALS 10/20/20 17:30 10/22/20 08:31 Clopidogrel Bisulfate (Plavix) 75 mg DAILY 10/21/20 09:00 10/22/20 08:33 Dextrose (Dextrose 50%-Water Syringe) 12.5 gm PRN Q15MIN PRN 10/20/20 15:45 Furosemide (Lasix) 80 mg BID92 10/20/20 17:30 10/21/20 09:37 DC 10/21/20 08:54 Gabapentin (Neurontin) 300 mg TID 10/20/20 21:00 10/22/20 15:07 Heparin Sodium (Porcine) (Heparin Sodium) 5,000 unit Q8HRS 10/20/20 16:30 10/22/20 15:09 Hydralazine HCl (Apresoline Inj) 10 mg PRN Q20MIN PRN 10/20/20 15:30 10/20/20 16:28 Hydralazine HCl (Apresoline) 100 mg TID 10/20/20 21:00 10/22/20 15:07 Insulin Glargine (Lantus Syringe) 60 unit QHS 10/20/20 21:00 10/21/20 21:34 Insulin Human Lispro (HumaLOG) 30 units TIDWMEALS 10/21/20 08:00 10/22/20 11:56 Isosorbide Dinitrate (Isordil) 5 mg TID 10/20/20 21:00 10/22/20 15:07 Lorazepam (Ativan Inj) 1 mg PRN Q4HRS PRN 10/20/20 17:30 10/22/20 11:57 Magnesium Hydroxide (Milk Of Magnesia) 2,400 mg PRN Q12HR PRN 10/20/20 16:15 10/22/20 06:11 Morphine Sulfate (Morphine Sulfate) 4 mg PRN Q2HR PRN 10/20/20 16:30 10/22/20 11:56 Nitroglycerin (Nitro-Bid Oint) 1 inch 1X ONCE 10/20/20 13:15 10/20/20 13:16 DC 10/20/20 13:22 Ondansetron HCl (Zofran) 4 mg PRN Q6HRS PRN 10/20/20 16:15 10/22/20 11:57 Pantoprazole Sodium (Protonix) 40 mg BIDAC 10/20/20 17:30 10/22/20 08:31 Senna/Docusate Sodium (Senna Plus) 2 tab PRN QEVNG PRN 10/20/20 17:30 Spironolactone (Aldactone) 25 mg DAILY 10/21/20 09:00 10/21/20 14:06 DC 10/21/20 08:52 Tamsulosin HCl (Flomax) 0.4 mg DAILY 10/21/20 09:00 10/22/20 08:29 Tramadol HCl (Ultram) 50 mg PRN Q6HRS PRN 10/20/20 16:30 Zolpidem Tartrate (Ambien) 5 mg PRN QHS PRN 10/20/20 16:15 10/20/20 21:39 LAB Lab: Laboratory Tests Test 10/21/20 16:37 10/21/20 21:03 10/22/20 04:00 10/22/20 07:26 Glucose (Fingerstick) 126 mg/dL (70-99) H 172 mg/dL (70-99) H 227 mg/dL (70-99) H Sodium Level 141 mmol/L (136-145) Potassium Level 4.5 mmol/L (3.5-5.1) Chloride Level 105 mmol/L (98-107) Carbon Dioxide Level 25 mmol/L (21-32) Anion Gap 11 (6-14) Blood Urea Nitrogen 38 mg/dL (8-26) H Creatinine 2.8 mg/dL (0.7-1.3) H Estimated GFR (Cockcroft-Gault) 28.5 Glucose Level 183 mg/dL (70-99) H Calcium Level 8.7 mg/dL (8.5-10.1) Test 10/22/20 11:10 Glucose (Fingerstick) 156 mg/dL (70-99) H Laboratory Tests 10/22/20 04:00 ASSESSMENT & PLAN A&P Plan as noted above This note was created using [employer] and may have omissions and/or errors due to the nature of real-time voice camp program director. Justifications for Admission Other Justification Acute respiratory failure with hypoxia, acute diastolic CHF exacerbation, right breast mass CECI JONES MD Oct 22, 2020 15:56
--- NOTE | 2020-10-22 16:20 | CARD ---
MR#: [id number] Date of Study: 10/21/2020 Ordering Physician: HAILEE ARSHAD, Referring Physician: HAILEE ARSHAD, Tech: Viridiana Seaman, [facility] APPROVED REPORT EXAM: Two-dimensional and M-mode echocardiogram with Doppler and color Doppler. Other Information Quality : Average INDICATION Aortic Valve Disease Dyspnea Chest Pain Congestive Heart Failure RISK FACTORS Hypertension Hyperlipidemia Diabetes 2D DIMENSIONS RVDd3.9 (2.9-3.5cm)Left Atrium(2D)4.6 (1.6-4.0cm) IVSd2.0 (0.7-1.1cm)Aortic Root(2D)3.6 (2.0-3.7cm) LVDd5.1 (3.9-5.9cm)LVOT Diameter2.1 (1.8-2.4cm) PWd1.6 (0.7-1.1cm)LVDs3.6 (2.5-4.0cm) FS (%) 29.6 %SV70.3 ml LVEF(%)56.3 (>50%) Aortic Valve AoV Peak Dillon.142.8cm/sAoV VTI30.5cm AO Peak GR.8.2mmHgLVOT Peak Dillon.112.8cm/s LVOT VTI 23.98cmAO Mean GR.4mmHg CHAD (VMAX)2.06wb5BAP (VTI)2.83cm2 Mitral Valve MV E Kbokyoen277.9cm/sMV E Peak Gr.97mmHg MV DECEL [id number] A Wiigwvtn21.3cm/s MV HNL77fhF/A Ratio3.6 MVA (PHT)4.23cm2 TDI E/Lateral E'17.8E/Medial E'19.9 Pulmonary Valve PV Peak Xsicpluu48.3cm/sPV Peak Grad.2mmHg Tricuspid Valve TR P. [id number]/sTR Peak Gr.48mmHg LEFT VENTRICLE The left ventricle is normal size. There is moderate to severe concentric left ventricular hypertroph y. The left ventricular systolic function is normal and the ejection fraction is within normal range. The Ejection Fraction is 55%. There is normal LV segmental wall motion. Tissue Doppler imaging revea ls moderate left ventricular diastolic dysfunction. RIGHT VENTRICLE The right ventricle is normal size. There is normal right ventricular wall thickness. The right ventr icular systolic function is normal. ATRIA The left atrium is mildly dilated. The right atrium size is normal. The interatrial septum is intact with no evidence for an atrial septal defect or patent foramen ovale as noted on 2-D or Doppler imagi ng. AORTIC VALVE The aortic valve is thickened but opens well. Doppler and Color Flow revealed no significant aortic r egurgitation. There is no significant aortic valvular stenosis. Calculated aortic valve area is 2.72 cm2 with maximum pressure gradient of 10 mmHg and mean pressure gradient of 5 mmHg. MITRAL VALVE The mitral valve is normal in structure and function. There is no evidence of mitral valve prolapse. There is no mitral valve stenosis. Doppler and Color-flow revealed moderate mitral regurgitation. TRICUSPID VALVE The tricuspid valve is normal in structure and function. Doppler and Color Flow revealed trace to mil d tricuspid regurgitation with an estimated PAP of 51 mmHg. There is no tricuspid valve stenosis. PULMONIC VALVE The pulmonic valve is not well visualized. Doppler and Color Flow revealed trace pulmonic valvular re gurgitation. There is no pulmonic valvular stenosis. GREAT VESSELS The aortic root is normal in size. The IVC is normal in size and collapses >50% with inspiration. PERICARDIAL EFFUSION There is a trace circumferential pericardial effusion. Critical Notification Critical Value: No <Conclusion> The left ventricular systolic function is normal and the ejection fraction is within normal range. Th e Ejection Fraction is 55%. There is moderate to severe concentric left ventricular hypertrophy. There is normal LV segmental wall motion. Doppler and Color-flow revealed moderate mitral regurgitation. Doppler and Color Flow revealed trace to mild tricuspid regurgitation with an estimated PAP of 51 mmH g. Signed by : Damon Huerta, Electronically Approved : 10/22/2020 16:19:29
--- NOTE | 2020-10-22 16:27 | PDOC ---
CARDIOLOGY PROGRESS NOTE SUBJECTIVE: No new issues. Sleeping comfortably OBJECTIVE: Vital Signs/I&O: Vital Signs Date Time Temp Pulse Resp B/P (MAP) Pulse Ox O2 Delivery O2 Flow Rate FiO2 10/22/20 15:07 74 141/45 10/22/20 15:00 98.6 26 95 Nasal Cannula 3.0 98.6 I & O 10/21/20 10/21/20 10/22/20 15:00 23:00 07:00 Intake Total 480 ml 600 ml 240 ml Output Total 800 ml 350 ml Balance 480 ml -200 ml -110 ml Objective: No new changes. 1+ edema. Obese abdomen normal heart tones DIAGNOSTIC TESTING: Labs: Laboratory Tests 10/22/20 04:00 Laboratory Tests Test 10/21/20 16:37 10/21/20 21:03 10/22/20 04:00 10/22/20 07:26 Glucose (Fingerstick) 126 mg/dL (70-99) H 172 mg/dL (70-99) H 227 mg/dL (70-99) H Sodium Level 141 mmol/L (136-145) Potassium Level 4.5 mmol/L (3.5-5.1) Chloride Level 105 mmol/L (98-107) Carbon Dioxide Level 25 mmol/L (21-32) Anion Gap 11 (6-14) Blood Urea Nitrogen 38 mg/dL (8-26) H Creatinine 2.8 mg/dL (0.7-1.3) H Estimated GFR (Cockcroft-Gault) 28.5 Glucose Level 183 mg/dL (70-99) H Calcium Level 8.7 mg/dL (8.5-10.1) Test 10/22/20 11:10 Glucose (Fingerstick) 156 mg/dL (70-99) H ASSESSMENT: 1. Acute on chronic diastolic CHF: due to noncompliance and continued cocaine use 2. AECOPD with continued tobaccoism 3. ROXANNE: uses CPAP at home 4. 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 Substance abuse: uses cocaine 6. Tobaccoism: last use Saturday 7. HTN urgency: improved 8. PAD: prior bypass, clinically stable 9. HLP 10. DM2: reports 200s usually at home 11. Atypical CP: possibly MSK 12. PUI: negative for covid 13. Normocytic anemia likely from chronic disease: Hgb 7.3 no obvious bleed PLAN: 1. continue current meds. Supportive care. Justicifation of Admission Dx: Justifications for Admission: Justification of Admission Dx: N/A FRANCISCO RAMIREZ MD Oct 22, 2020 16:27
[2020-10-22 19:15] VITALS: BP 133/62
[2020-10-22] MEDS: ATORVASTATIN CALCIUM 40 MG TABLET. PO SCH (21:08)
[2020-10-22] MEDS: ACETAMINOPHEN 325 MG TABLET. PO PRN (21:09)
[2020-10-22] MEDS: INSULIN GLARGINE SYRINGE. SQ SCH (21:17)
[2020-10-22 23:30] VITALS: BP 134/52
[2020-10-23 04:18] VITALS: BP 112/54
[2020-10-23] MEDS: HEPARIN for SUB-Q USE 5,000 UNIT/ML VIAL. SQ SCH ×3 (06:19→21:12)
[2020-10-23 07:00] VITALS: BP 141/54
[2020-10-23] MEDS: CARVEDILOL 12.5 MG TABLET. PO SCH ×2 (08:09→16:15)
[2020-10-23] MEDS: ASPIRIN CHEWABLE 81 MG TABLET. PO SCH (08:09)
[2020-10-23] MEDS: ISOSORBIDE DINITRATE 10 MG TABLET. PO SCH ×3 (08:10→20:28)
[2020-10-23] MEDS: TAMSULOSIN 0.4 MG CAP.ER.24H. PO SCH (08:10)
[2020-10-23] MEDS: CLOPIDOGREL BISULFATE 75 MG TABLET PO SCH (08:10)
[2020-10-23] MEDS: amLODIPine BESYLATE 10 MG TABLET PO SCH (08:10)
[2020-10-23] MEDS: GABAPENTIN 300 MG CAPSULE. PO SCH ×3 (08:10→20:27)
[2020-10-23] MEDS: PANTOPRAZOLE 40 MG TABLET.DR. PO SCH ×2 (08:10→16:14)
[2020-10-23] MEDS: FUROSEMIDE 80 MG TABLET. PO SCH ×2 (08:11→16:00)
[2020-10-23] MEDS: MORPHINE SULFATE 4 MG/ML VIAL. IV PRN ×2 (08:12→12:06)
[2020-10-23] MEDS: INSULIN LISPRO 300 UNITS/3 ML VIAL. SQ SCH ×6 (08:19→16:49)
[2020-10-23 10:49] VITALS: BP 139/50
[2020-10-23 13:04] LABS: BASO % 0 % (0-3); EOS # 0.2 x10^3/uL (0.0-0.7); EOS % 2 % (0-3); HEMATOCRIT 25.1 % (39.0-53.0); HEMOGLOBIN 8.1 g/dL (13.0-17.5); LYMPH # 1.4 x10^3/uL (1.0-4.8); LYMPH % 18 % (24-48); MEAN CORPUSCULAR HEMOGLOBIN 29 pg (25-35); MEAN CORPUSCULAR HGB CONC 32 g/dL (31-37); MEAN CORPUSCULAR VOLUME 89 fL (79-100); MONO # 0.4 x10^3/uL (0.0-1.1); MONO % 5 % (0-9); NEUT # 6.1 x10^3/uL (1.8-7.7); NEUT % 75 % (31-73); PLATELET COUNT 254 x10^3/uL (140-400); RED BLOOD COUNT 2.81 x10^6/uL (4.30-5.70); RED CELL DISTRIBUTION WIDTH 15.1 % (11.5-14.5); WHITE BLOOD COUNT 8.2 x10^3/uL (4.0-11.0)
--- NOTE | 2020-10-23 13:13 | PDOC ---
GENERAL General: Patient examined chart reviewed no events overnight noted. His labs are still pending somehow from today. Hemoglobin was resulted this morning and is lower at 7.3. He will need transfusion to keep his hemoglobin up over 7. Nephrology has been consulted and their assistance is appreciated. Cardiology is also following and assistance is appreciated. Patient is more distressed today tells me that he is very upset that his brother has been admitted to and is now on hemodialysis. He is frustrated that he has a hard time getting up and moving around. His anemia is most likely secondary to his renal failure but we will check iron levels and vitamin B12 level in the morning. His baseline creatinine is poor by report. He may need a physical therapy and Occupational Therapy prior to discharge to be sure that we are optimizing his status to avoid readmission. We will also need to link patient with drug rehab resources prior to discharge to help him maintain a stronger health status. Problems: (1) Uncontrolled diabetes mellitus with hyperglycemia (2) Renal insufficiency (3) Acute on chronic diastolic (congestive) heart failure VITAL SIGNS Vital Signs/I&O: Vital Signs Date Time Temp Pulse Resp B/P (MAP) Pulse Ox O2 Delivery O2 Flow Rate FiO2 10/23/20 12:36 94 Nasal Cannula 4.0 10/23/20 12:06 18 10/23/20 10:49 98.4 86 139/50 (79) 98.4 I & O 10/22/20 10/22/20 10/23/20 15:00 23:00 07:00 Intake Total 360 ml 360 ml 200 ml Output Total 525 ml 800 ml Balance 360 ml -165 ml -600 ml Patient is sitting up on the side of his bed today more agitated anxious about his situation HEENT exam is unremarkable for acute abnormality Chest bilateral equal air entry though diminished throughout no crackles or wheezes are noted Heart S1-S2 normal regular rate and rhythm no murmurs or gallops are noted Extremity exam is unremarkable for acute abnormality ALLERGIES Allergies: Allergies Coded Allergies Type Severity Reaction Last Updated Verified Sulfa (Sulfonamide Antibiotics) Allergy Intermediate Rash 08/05/16 Yes MEDS Medications: Current Medications Medications (Trade) Dose Ordered Sig/Kiera Start Time Stop Time Status Last Admin Dose Admin Acetaminophen (Tylenol) 650 mg PRN Q6HRS PRN 10/20/20 16:15 10/22/20 21:09 Al Hydroxide/Mg Hydroxide (Mylanta Plus Xs) 30 ml PRN Q3HRS PRN 10/20/20 16:15 Amlodipine Besylate (Norvasc) 10 mg DAILY 10/21/20 09:00 10/23/20 08:10 Aspirin (Aspirin Chewable) 81 mg [id number] 10/21/20 08:00 10/23/20 08:09 Atorvastatin Calcium (Lipitor) 80 mg QHS 10/20/20 21:00 10/22/20 21:08 Bisacodyl (Dulcolax Supp) 10 mg PRN DAILY PRN 10/20/20 16:15 Calcium Carbonate/ Glycine (Tums) 500 mg PRN Q3HRS PRN 10/20/20 16:15 Carvedilol (Coreg) 25 mg BIDWMEALS 10/20/20 17:30 10/23/20 08:09 Clopidogrel Bisulfate (Plavix) 75 mg DAILY 10/21/20 09:00 10/23/20 08:10 Dextrose (Dextrose 50%-Water Syringe) 12.5 gm PRN Q15MIN PRN 10/20/20 15:45 Furosemide (Lasix) 80 mg BID92 10/20/20 17:30 10/21/20 09:37 DC 10/21/20 08:54 Gabapentin (Neurontin) 300 mg TID 10/20/20 21:00 10/23/20 08:10 Heparin Sodium (Porcine) (Heparin Sodium) 5,000 unit Q8HRS 10/20/20 16:30 10/23/20 06:19 Hydralazine HCl (Apresoline Inj) 10 mg PRN Q20MIN PRN 10/20/20 15:30 10/20/20 16:28 Hydralazine HCl (Apresoline) 100 mg TID 10/20/20 21:00 10/23/20 08:09 Insulin Glargine (Lantus Syringe) 60 unit QHS 10/20/20 21:00 10/22/20 21:17 Insulin Human Lispro (HumaLOG) 30 units TIDWMEALS 10/21/20 08:00 10/23/20 12:13 Isosorbide Dinitrate (Isordil) 5 mg TID 10/20/20 21:00 10/23/20 08:10 Lorazepam (Ativan Inj) 1 mg PRN Q4HRS PRN 10/20/20 17:30 10/22/20 11:57 Magnesium Hydroxide (Milk Of Magnesia) 2,400 mg PRN Q12HR PRN 10/20/20 16:15 10/22/20 06:11 Morphine Sulfate (Morphine Sulfate) 4 mg PRN Q2HR PRN 10/20/20 16:30 10/23/20 12:06 Nitroglycerin (Nitro-Bid Oint) 1 inch 1X ONCE 10/20/20 13:15 10/20/20 13:16 DC 10/20/20 13:22 Ondansetron HCl (Zofran) 4 mg PRN Q6HRS PRN 10/20/20 16:15 10/22/20 11:57 Pantoprazole Sodium (Protonix) 40 mg BIDAC 10/20/20 17:30 10/23/20 08:10 Senna/Docusate Sodium (Senna Plus) 2 tab PRN QEVNG PRN 10/20/20 17:30 Spironolactone (Aldactone) 25 mg DAILY 10/21/20 09:00 10/21/20 14:06 DC 10/21/20 08:52 Tamsulosin HCl (Flomax) 0.4 mg DAILY 10/21/20 09:00 10/23/20 08:10 Tramadol HCl (Ultram) 50 mg PRN Q6HRS PRN 10/20/20 16:30 Zolpidem Tartrate (Ambien) 5 mg PRN QHS PRN 10/20/20 16:15 10/20/20 21:39 LAB Lab: Laboratory Tests Test 10/22/20 16:24 10/22/20 20:40 10/23/20 06:38 10/23/20 07:29 Glucose (Fingerstick) 107 mg/dL (70-99) H 169 mg/dL (70-99) H 282 mg/dL (70-99) H 301 mg/dL (70-99) H Test 10/23/20 11:35 Glucose (Fingerstick) 219 mg/dL (70-99) H ASSESSMENT & PLAN A&P Plan as noted above This note was created using [employer] and may have omissions and/or errors due to the nature of 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 Justifications for Admission Other Justification Acute respiratory failure with hypoxia, acute diastolic CHF exacerbation, right breast mass CECI JONES MD Oct 23, 2020 13:13
[2020-10-23 13:19] LABS: ALBUMIN 3.3 g/dL (3.4-5.0); ALBUMIN/GLOBULIN RATIO 0.8 (1.0-1.7); CALCIUM 8.9 mg/dL (8.5-10.1); CREATININE 3.5 mg/dL (0.7-1.3); POTASSIUM 4.7 mmol/L (3.5-5.1); TOTAL BILIRUBIN 0.4 mg/dL (0.2-1.0); TOTAL PROTEIN 7.6 g/dL (6.4-8.2)
[2020-10-23 15:00] VITALS: BP 117/59
--- NOTE | 2020-10-23 16:25 | NUR ---
Pt's furosemide held due to a creat of 3.5
[2020-10-23 19:44] VITALS: BP 158/40
[2020-10-23] MEDS: INSULIN GLARGINE SYRINGE. SQ SCH (20:26)
[2020-10-23] MEDS: ATORVASTATIN CALCIUM 40 MG TABLET. PO SCH (20:28)
--- NOTE | 2020-10-23 21:30 | CONS ---
DATE OF CONSULTATION: REQUESTING PHYSICIAN: Hospitalist. REASON FOR CONSULTATION: Chronic kidney disease. HISTORY OF PRESENT ILLNESS: This is a 55-year-old gentleman with history of diabetes mellitus, hypertension and chronic kidney disease. The patient has a history of cocaine use, which is ongoing. He has diastolic congestive cardiomyopathy. He was admitted on 10/20/2020 with chest pain and shortness of breath. He has been managed for the same. Due to reduced renal function, Nephrology evaluation was requested. PAST MEDICAL HISTORY: Diabetes mellitus; hypertension; chronic kidney disease, stage 4; pancreatitis; cocaine use; congestive cardiomyopathy; pneumonia; peripheral neuropathy; degenerative arthritis; morbid obesity; benign prostatic hypertrophy; hernia repair and cholecystectomy. ALLERGIES: SULFA. MEDICATIONS: Reviewed per medication list. FAMILY HISTORY: Of note for renal failure in a brother, beginning hemodialysis. REVIEW OF SYSTEMS: No headache, sinus problem, nasal drainage, epistaxis, change in vision or hearing. No difficulty swallowing. No fever, chills, cough, sputum or hemoptysis. No chest pain. He does get dyspnea on exertion. No abdominal pain. No nausea, vomiting, diarrhea, seizures or malignancies. He has weakness. PHYSICAL EXAMINATION: GENERAL APPEARANCE: The patient is awake, conversant. HEENT: Full facies, otherwise clear. NECK: No increased JVD. LUNGS: Clear. CARDIAC: Without S3 or rub. ABDOMEN: Obese. EXTREMITIES: No edema. NEUROPSYCHIATRIC: Follows, answers appropriately. LABORATORY DATA: Sodium 139, potassium 4.7, chloride 105, CO2 of 25, BUN 46, creatinine 3.5, GFR is 22. On presentation, GFR was 37.7 with serum creatinine of 2.2. IMPRESSION: 1. Chronic kidney disease stage 4 -- worsening, likely secondary to reestablishing fluid balance. This is likely more typical of his baseline renal function. 2. Congestive cardiomyopathy. 3. Diabetes mellitus. RECOMMENDATIONS: Ongoing fluid balance as dictated by cardiopulmonary demands. We will trend labs with you. If GFR drops below 15, may require elective initiation of dialysis. No acute indication at this time. MARTINA JOHNSON MD DR: ROSARIO/portia JOB#: [id number] / [id number]
[2020-10-23] MEDS: traMADol 50 MG TABLET PO PRN (21:37)
[2020-10-23 22:48] VITALS: BP 123/52
[2020-10-24 03:04] VITALS: BP 125/55
[2020-10-24] MEDS: traMADol 50 MG TABLET PO PRN ×2 (03:31→08:25)
[2020-10-24] MEDS: HEPARIN for SUB-Q USE 5,000 UNIT/ML VIAL. SQ SCH ×3 (04:55→22:03)
[2020-10-24 07:00] VITALS: BP 134/59
[2020-10-24] MEDS: INSULIN LISPRO 300 UNITS/3 ML VIAL. SQ SCH ×6 (08:00→17:00)
[2020-10-24] MEDS: ASPIRIN CHEWABLE 81 MG TABLET. PO SCH (08:17)
[2020-10-24] MEDS: ISOSORBIDE DINITRATE 10 MG TABLET. PO SCH ×3 (08:17→21:44)
[2020-10-24] MEDS: CARVEDILOL 12.5 MG TABLET. PO SCH ×2 (08:18→17:26)
[2020-10-24] MEDS: CLOPIDOGREL BISULFATE 75 MG TABLET PO SCH (08:19)
[2020-10-24] MEDS: PANTOPRAZOLE 40 MG TABLET.DR. PO SCH ×2 (08:19→17:25)
[2020-10-24] MEDS: TAMSULOSIN 0.4 MG CAP.ER.24H. PO SCH (08:19)
[2020-10-24] MEDS: GABAPENTIN 300 MG CAPSULE. PO SCH ×3 (08:20→21:41)
[2020-10-24] MEDS: amLODIPine BESYLATE 10 MG TABLET PO SCH (09:00)
[2020-10-24] MEDS: FUROSEMIDE 80 MG TABLET. PO SCH (09:00)
--- NOTE | 2020-10-24 09:12 | PDOC ---
PROGRESS NOTES Date of Service: DATE: 10/24/20 TIME: 09:15 Chief Complaint Chief Complaint impression Acute respiratory failure with hypoxia -he takes Lasix 80 mg twice daily and has not had his medications today. IV Lasix 80 mg x 1 and resume home Lasix. Acute diastolic heart failure - last echocardiogram on 09/14/2019 showed EF 65- 70%, severe concentric left ventricular hypertrophy, aortic stenosis. Will obta in limited echo and consult cardiology. Elevated brain natriuretic peptide (BNP) level - likely secondary to some congestion, pulmonary HTN Pulmonary HTN - multifactorial likely from cocaine abuse, possible underlying COPD or CHF. Limited echocardiogram CKD - patient notes baseline CKD stage IV. Will consult nephrology for further recommendations given patient will likely require aggressive diuresis. Normocytic anemia - likely secondary to CKD and anemia of chronic disease Hypertensive urgency - needs better management; will resume home medications and provide IV blood pressure parameters DM2 - will initiate basal/prandial insulin Right breast mass - given family history of breast cancer will obtain right breast ultrasound COVID-19 PUI - COVID-19 neg Malnutrition Resume home medications normocytic anemia Operative Note Operative Note Date: 06/15/16 Procedure: Left femoral to above knee popliteal bypass with left GSV with femoral endarterectomy 10/24 If GFR drops below 15, may require elective initiation of dialysis. No acute indication at this time d/w RN 37 min pt exam, chart review, > 50% of time spent with exam, chart review, pt care coordination History of Present Illness History of Present Illness Mr Moreira is a 54yo M w/ PMHx Diabetes-Type II, High Cholesterol, Hypertension, Pancreatitis, CKD 4, presents to the ER with complaint of worsening shortness of breath of the past 3 days. He reports associated intermi ttent chest pain and bilateral lower extremity swelling. States his symptoms are worse with exertion. Upon arrival in the ED his BNP was 3029. He was placed on BiPAP given IV morphine with improvement of symptoms. States he has not taken any of his home medications today. He does report a tender lump in his right breast for the past 3 weeks, reports a family history of breast cancer. He denies any fever, sick contacts, or known COVID-19 exposure. Will admit patient for further medical management. 10/21: Patient seen and evaluated. Improved on BiPAP overnight. Afebrile, denies chest pain. Blood pressure better controlled. CBG 323 this morning. Of note patient did order two trays of nondiabetic meals, and had fried chicken delivered to his room last night. Discussed importance of cardiac and diabetic diet for his heart health. Continue to diurese with Lasix. Echocardiogram and ultrasound right breast pending. If appropriately diuresed and no concerning findings on right breast ultrasound, Vitals Vitals Vital Signs Date Time Temp Pulse Resp B/P (MAP) Pulse Ox O2 Delivery O2 Flow Rate FiO2 10/24/20 08:25 20 92 Nasal Cannula 4.0 10/24/20 08:19 76 134/59 10/24/20 07:00 100.4 100.4 Physical Exam General: Alert, Oriented X3, Cooperative, No acute distress Heart: Regular rate, Other Lungs: Crackles Abdomen: Soft Extremities: No cyanosis, Other Skin: No breakdown, No significant lesion Labs LABS Operative Note Operative Note Date: 06/15/16 Procedure: Left femoral to above knee popliteal bypass with left GSV with femoral endarterectomy Surgeon: Dr. Manzo Asst: Dr. Herring Anesthesia: GETA Findings: occluded proximal SFA with plaque in the common femoral artery. Triphasic signal to the above the knee bypass at completion EBL: 50 cc Complications: none To PACU for recovery GAMA HERRING MD Jun 15, 2016 16:36 SIGNED BY: GAMA HERRING MD DATE: 06/15/16 1636 Abdominal aortogram with bilateral lower extremity arteriogram Indication: 50-year-old male, with multiple cardiovascular risk factors, including diabetes, tobaccoism, hypertension, and dyslipidemia. Abnormal lower extremity arterial duplex Doppler, consistent with PAD. Bilateral intermittent claudication, right greater than left. Diagnostic arteriogram, with possible intervention, requested by vascular surgery. Fluoroscopy time: 7.5 minutes Kerma-area Product: 232 Gycm2 Contrast material: 40 cc Omnipaque 300. 92 cc Visipaque 320. Anesthesia: 48 minutes moderate sedation was provided utilizing a total of 2 mg Versed and 100 mcg fentanyl, IV. The patient was appropriately monitored by a qualified independent observer throughout the time of moderate sedation. Consent: The procedure was explained in its entirety to the patient and/or the patient's designated sales support representative by a member of the treatment team. This included a discussion of risks and benefits and commonly accepted alternatives to the procedure, as well as expected consequences of no treatment at all. Discussion of risks included, but was not limited to, those that are most frequent and those that are rare, but possibly severe or life-threatening, as well as the possibility of unforeseen complications. Sterility: All elements of maximal sterile barrier technique were utilized, including cap, mask, sterile gown, sterile gloves, large sterile sheet, appropriate hand hygiene, and 2% chlorhexidine for cutaneous antisepsis. Procedure: Informed consent was obtained from the patient. He was placed supine on the angiography table. Preliminary ultrasound examination of left groin revealed wide patency of left common femoral artery, which was documented with a single hard copy ultrasound image. Left groin was then prepped and draped in the usual sterile fashion, utilizing all elements of maximal sterile barrier technique, as described above. Moderate sedation was provided with IV Versed and fentanyl. Using aseptic technique, local anesthesia, direct ultrasound guidance, and the micropuncture system, a 5 [place] left common femoral artery sheath was successfully introduced. Abdominal aortogram: A 5 [place] Omni Flush catheter was advanced through the left groin sheath and was positioned within suprarenal abdominal aorta. Omnipaque 300 was injected and abdominal aortogram DSA images were obtained. Findings: Infrarenal abdominal aorta is smooth in contour and normal in caliber, without stricture and without aneurysmal dilatation. No hemodynamically significant renal artery stenosis is identified. Oblique pelvis injection: The Omni Flush catheter was withdrawn into distal abdominal aorta, just above bifurcation. Omnipaque 300 was again injected and DSA images were obtained over pelvis in the RENE projection. Findings: No significant common iliac or external iliac artery stenosis is identified, bilaterally. High-grade narrowing is present at right hypogastric artery origin. High-grade left hypogastric artery origin stenosis was seen on the abdominal aortogram injection. Right lower extremity arteriogram: The 5 [place] Omni Flush catheter was exchanged over a Glidewire for a 4 [place] angled glide catheter, which was directed across aortic bifurcation and was positioned within contralateral right common femoral artery. Dilute Visipaque was injected and DSA images were obtained from right groin through hindfoot. Findings: Right common femoral artery shows calcific plaquing, without significant narrowing. There is high-grade profunda origin stenosis. Right superficial femoral artery shows abrupt, complete occlusion approximately 2 cm distal to its origin. Distal right SFA is reconstituted just above abductor canal, and shows moderate catheters ready plaquing. Right popliteal artery appears widely patent through knee joint, where there is atypical high bifurcation into anterior tibial artery and tibioperoneal trunk. Right anterior tibial artery is severely and diffusely diseased, and is not opacified below mid calf. Tibioperoneal trunk is widely patent, apart from focal moderate stenosis just above its bifurcation. Right posterior tibial artery is severely and diffusely diseased with segmental occlusions proximally and distally. Right peroneal artery is widely patent through distal calf, apart from a focal, proximal, severe stenosis. Right peroneal artery provides collateral perfusion to dorsalis pedis and distal posterior tibial artery-plantar artery distribution at hindfoot. Left lower extremity runoff: The 5 [place] Omni Flush catheter was reintroduced through the left groin sheath and was positioned within distal left external iliac artery. Visipaque was injected and digital angiographic images were obtained from groin through foot. Findings: No significant left common femoral artery or deep femoral artery stenosis was demonstrated. Right SFA-popliteal arterial segment shows diffuse as described plaquing, without flow-limiting lesion. Left anterior tibial artery is occluded proximally. Left tibial peroneal trunk is patent. Left posterior tibial artery is severely and diffusely diseased, with segmental occlusions. Left peroneal artery is widely patent from origin through distal calf/ankle, and provides collateral perfusion to dorsalis pedis and plantar distributions at foot. Patient tolerated the procedure well without apparent complication. Hemostasis was achieved at the left groin puncture site utilizing Angio-Seal system. Impression: 1. No abdominal aortic aneurysm. 2. No significant common iliac or external iliac artery stenosis, bilaterally. 3. High-grade origin hypogastric artery stenoses, bilaterally. 4. High-grade origin right profunda stenosis. 5. Long segment right SFA occlusion commences approximately 2 cm distal to its origin---Reconstituted right popliteal artery is widely patent from abductor canal through its high bifurcation at knee joint level. 6. No hemodynamically significant left profunda or left SFA-popliteal segment stenosis. 7. Severe bilateral tibial occlusive disease, with single-vessel peroneal artery distal runoff, bilaterally. Moderate stenosis within distal right tibial peroneal trunk and high-grade focal stenosis within proximal right peroneal artery. DICTATED and SIGNED BY: VI DUNN MD DATE: 06/11/16 1617 CC: JERE RENTERIA II, MD; UNKNOWN PCP NAME ~ Tricuspid Valve TR P. Velocity 323cm/s TR Peak Gr. 48mmHg LEFT VENTRICLE The left ventricle is normal size. There is moderate to severe concentric left ventricular hypertrophy. The left ventricular systolic function is normal and the ejection fraction is within normal range. The Ejection Fraction is 55%. There is normal LV segmental wall motion. Tissue Doppler imaging reveals moderate left ventricular diastolic dysfunction. RIGHT VENTRICLE The right ventricle is normal size. There is normal right ventricular wall thickness. The right ventricular systolic function is normal. ATRIA The left atrium is mildly dilated. The right atrium size is normal. The interatrial septum is intact with no evidence for an atrial septal defect or patent foramen ovale as noted on 2-D or Doppler imaging. AORTIC VALVE The aortic valve is thickened but opens well. Doppler and Color Flow revealed no significant aortic regurgitation. There is no significant aortic valvular stenosis. Calculated aortic valve area is 2.72 cm2 with maximum pressure gradient of 10 mmHg and mean pressure gradient of 5 mmHg. MITRAL VALVE The mitral valve is normal in structure and function. There is no evidence of mitral valve prolapse. There is no mitral valve stenosis. Doppler and Color-flow revealed moderate mitral regurgitation. TRICUSPID VALVE The tricuspid valve is normal in structure and function. Doppler and Color Flow revealed trace to mild tricuspid regurgitation with an estimated PAP of 51 mmHg. There is no tricuspid valve stenosis. PULMONIC VALVE The pulmonic valve is not well visualized. Doppler and Color Flow revealed trace pulmonic valvular regurgitation. There is no pulmonic valvular stenosis. GREAT VESSELS The aortic root is normal in size. The IVC is normal in size and collapses >50% with inspiration. PERICARDIAL EFFUSION There is a trace circumferential pericardial effusion. Critical Notification Critical Value: No <Conclusion> The left ventricular systolic function is normal and the ejection fraction is within normal range. The Ejection Fraction is 55%. There is moderate to severe concentric left ventricular hypertrophy. There is normal LV segmental wall motion. Doppler and Color-flow revealed moderate mitral regurgitation. Doppler and Color Flow revealed trace to mild tricuspid regurgitation with an estimated PAP of 51 mmHg.Signed PATIENT: HAILEY MOREIRA ACCOUNT: [id number] : 1965 LOCATION: ER AGE: 55 SEX: M EXAM STATUS: REG ER ORD. PHYSICIAN: FRANK CALLEJAS DO REASON: SOA PROCEDURE: PORTABLE CHEST 1V XR CHEST 1V Clinical Indication: Reason: SOA / Spl. Instructions: / History: Comparison: AP chest September 14, 2019. Findings: The cardiomediastinal silhouette is normal. The pulmonary vasculature is upper limits of normal. Lungs are clear. There is no pneumothorax. No pleural effusion is appreciated. No acute bone abnormality. IMPRESSION: No acute cardiopulmonary process. Electronically signed by: Ty Christianson MD (10/20/2020 12:23 PM) [id number] DICTATED and SIGNED BY: TY CHRISTIANSON MD DATE: 10/20/20 [id number] Laboratory Tests Test 10/23/20 11:35 10/23/20 12:50 10/23/20 16:36 10/23/20 20:23 Glucose (Fingerstick) 219 mg/dL (70-99) 104 mg/dL (70-99) 186 mg/dL (70-99) White Blood Count 8.2 x10^3/uL (4.0-11.0) Red Blood Count 2.81 x10^6/uL (4.30-5.70) Hemoglobin 8.1 g/dL (13.0-17.5) Hematocrit 25.1 % (39.0-53.0) Mean Corpuscular Volume 89 fL (79-100) Mean Corpuscular Hemoglobin 29 pg (25-35) Mean Corpuscular Hemoglobin Concent 32 g/dL (31-37) Red Cell Distribution Width 15.1 % (11.5-14.5) Platelet Count 254 x10^3/uL (140-400) Neutrophils (%) (Auto) 75 % (31-73) Lymphocytes (%) (Auto) 18 % (24-48) Monocytes (%) (Auto) 5 % (0-9) Eosinophils (%) (Auto) 2 % (0-3) Basophils (%) (Auto) 0 % (0-3) Neutrophils # (Auto) 6.1 x10^3/uL (1.8-7.7) Lymphocytes # (Auto) 1.4 x10^3/uL (1.0-4.8) Monocytes # (Auto) 0.4 x10^3/uL (0.0-1.1) Eosinophils # (Auto) 0.2 x10^3/uL (0.0-0.7) Basophils # (Auto) 0.0 x10^3/uL (0.0-0.2) Sodium Level 139 mmol/L (136-145) Potassium Level 4.7 mmol/L (3.5-5.1) Chloride Level 105 mmol/L (98-107) Carbon Dioxide Level 25 mmol/L (21-32) Anion Gap 9 (6-14) Blood Urea Nitrogen 46 mg/dL (8-26) Creatinine 3.5 mg/dL (0.7-1.3) Estimated GFR (Cockcroft-Gault) 22.0 BUN/Creatinine Ratio 13 (6-20) Glucose Level 170 mg/dL (70-99) Calcium Level 8.9 mg/dL (8.5-10.1) Total Bilirubin 0.4 mg/dL (0.2-1.0) Aspartate Amino Transf (AST/SGOT) 76 U/L (15-37) Alanine Aminotransferase (ALT/SGPT) 27 U/L (16-63) Alkaline Phosphatase 60 U/L (46-116) Total Protein 7.6 g/dL (6.4-8.2) Albumin 3.3 g/dL (3.4-5.0) Albumin/Globulin Ratio 0.8 (1.0-1.7) Test 10/24/20 08:06 Glucose (Fingerstick) 243 mg/dL (70-99) Assessment and Plan Assessmemt and Plan Problems Medical Problems: (1) Chest pain Status: Acute (2) CHF exacerbation Status: Acute (3) HTN (hypertension) Status: Acute (4) Person under investigation for COVID-19 Status: Acute Comment Review of Relevant I have reviewed the following items karissa (where applicable) has been applied. Labs Laboratory Tests Test 10/22/20 11:10 10/22/20 16:24 10/22/20 20:40 10/23/20 06:38 Glucose (Fingerstick) 156 mg/dL (70-99) 107 mg/dL (70-99) 169 mg/dL (70-99) 282 mg/dL (70-99) Test 10/23/20 07:29 10/23/20 11:35 10/23/20 12:50 10/23/20 16:36 Glucose (Fingerstick) 301 mg/dL (70-99) 219 mg/dL (70-99) 104 mg/dL (70-99) White Blood Count 8.2 x10^3/uL (4.0-11.0) Red Blood Count 2.81 x10^6/uL (4.30-5.70) Hemoglobin 8.1 g/dL (13.0-17.5) Hematocrit 25.1 % (39.0-53.0) Mean Corpuscular Volume 89 fL (79-100) Mean Corpuscular Hemoglobin 29 pg (25-35) Mean Corpuscular Hemoglobin Concent 32 g/dL (31-37) Red Cell Distribution Width 15.1 % (11.5-14.5) Platelet Count 254 x10^3/uL (140-400) Neutrophils (%) (Auto) 75 % (31-73) Lymphocytes (%) (Auto) 18 % (24-48) Monocytes (%) (Auto) 5 % (0-9) Eosinophils (%) (Auto) 2 % (0-3) Basophils (%) (Auto) 0 % (0-3) Neutrophils # (Auto) 6.1 x10^3/uL (1.8-7.7) Lymphocytes # (Auto) 1.4 x10^3/uL (1.0-4.8) Monocytes # (Auto) 0.4 x10^3/uL (0.0-1.1) Eosinophils # (Auto) 0.2 x10^3/uL (0.0-0.7) Basophils # (Auto) 0.0 x10^3/uL (0.0-0.2) Sodium Level 139 mmol/L (136-145) Potassium Level 4.7 mmol/L (3.5-5.1) Chloride Level 105 mmol/L (98-107) Carbon Dioxide Level 25 mmol/L (21-32) Anion Gap 9 (6-14) Blood Urea Nitrogen 46 mg/dL (8-26) Creatinine 3.5 mg/dL (0.7-1.3) Estimated GFR (Cockcroft-Gault) 22.0 BUN/Creatinine Ratio 13 (6-20) Glucose Level 170 mg/dL (70-99) Calcium Level 8.9 mg/dL (8.5-10.1) Total Bilirubin 0.4 mg/dL (0.2-1.0) Aspartate Amino Transf (AST/SGOT) 76 U/L (15-37) Alanine Aminotransferase (ALT/SGPT) 27 U/L (16-63) Alkaline Phosphatase 60 U/L (46-116) Total Protein 7.6 g/dL (6.4-8.2) Albumin 3.3 g/dL (3.4-5.0) Albumin/Globulin Ratio 0.8 (1.0-1.7) Test 10/23/20 20:23 10/24/20 08:06 Glucose (Fingerstick) 186 mg/dL (70-99) 243 mg/dL (70-99) Laboratory Tests Test 10/23/20 11:35 10/23/20 12:50 10/23/20 16:36 10/23/20 20:23 Glucose (Fingerstick) 219 mg/dL (70-99) 104 mg/dL (70-99) 186 mg/dL (70-99) White Blood Count 8.2 x10^3/uL (4.0-11.0) Red Blood Count 2.81 x10^6/uL (4.30-5.70) Hemoglobin 8.1 g/dL (13.0-17.5) Hematocrit 25.1 % (39.0-53.0) Mean Corpuscular Volume 89 fL (79-100) Mean Corpuscular Hemoglobin 29 pg (25-35) Mean Corpuscular Hemoglobin Concent 32 g/dL (31-37) Red Cell Distribution Width 15.1 % (11.5-14.5) Platelet Count 254 x10^3/uL (140-400) Neutrophils (%) (Auto) 75 % (31-73) Lymphocytes (%) (Auto) 18 % (24-48) Monocytes (%) (Auto) 5 % (0-9) Eosinophils (%) (Auto) 2 % (0-3) Basophils (%) (Auto) 0 % (0-3) Neutrophils # (Auto) 6.1 x10^3/uL (1.8-7.7) Lymphocytes # (Auto) 1.4 x10^3/uL (1.0-4.8) Monocytes # (Auto) 0.4 x10^3/uL (0.0-1.1) Eosinophils # (Auto) 0.2 x10^3/uL (0.0-0.7) Basophils # (Auto) 0.0 x10^3/uL (0.0-0.2) Sodium Level 139 mmol/L (136-145) Potassium Level 4.7 mmol/L (3.5-5.1) Chloride Level 105 mmol/L (98-107) Carbon Dioxide Level 25 mmol/L (21-32) Anion Gap 9 (6-14) Blood Urea Nitrogen 46 mg/dL (8-26) Creatinine 3.5 mg/dL (0.7-1.3) Estimated GFR (Cockcroft-Gault) 22.0 BUN/Creatinine Ratio 13 (6-20) Glucose Level 170 mg/dL (70-99) Calcium Level 8.9 mg/dL (8.5-10.1) Total Bilirubin 0.4 mg/dL (0.2-1.0) Aspartate Amino Transf (AST/SGOT) 76 U/L (15-37) Alanine Aminotransferase (ALT/SGPT) 27 U/L (16-63) Alkaline Phosphatase 60 U/L (46-116) Total Protein 7.6 g/dL (6.4-8.2) Albumin 3.3 g/dL (3.4-5.0) Albumin/Globulin Ratio 0.8 (1.0-1.7) Test 10/24/20 08:06 Glucose (Fingerstick) 243 mg/dL (70-99) Medications Current Medications Nitroglycerin (Nitro-Bid Oint) 1 inch 1X ONCE TP Last administered on 10/20/20at 13:22; Start 10/20/20 at 13:15; Stop 10/20/20 at 13:16; Status DC Morphine Sulfate (Morphine Sulfate) 4 mg 1X ONCE IV Last administered on 10/20/20at 13:23; Start 10/20/20 at 13:15; Stop 10/20/20 at 13:16; Status DC Furosemide (Lasix) 80 mg 1X ONCE IVP Last administered on 10/20/20at 16:25; Start 10/20/20 at 15:45; Stop 10/20/20 at 15:46; Status DC Hydralazine HCl (Apresoline Inj) 10 mg PRN Q20MIN PRN IVP ELEVATED BP, SEE COMMENTS Last administered on 10/20/20 16:28; Start 10/20/20 at 15:30 Furosemide (Lasix) 80 mg BID94 PO Last administered on 10/23/20 08:11; Start 10/21/20 at 09:00 Insulin Human Lispro (HumaLOG) 0-9 UNITS TIDWMEALS SQ Last administered on 10/23/20at 12:12; Start 10/20/20 at 17:00 Dextrose (Dextrose 50%-Water Syringe) 12.5 gm PRN Q15MIN PRN IV SEE COMMENTS; Start 10/20/20 at 15:45 Ondansetron HCl (Zofran) 4 mg PRN Q6HRS PRN IVP NAUSEA/VOMITING Last administered on 10/22/20 11:57; Start 10/20/20 at 16:15 Al Hydroxide/Mg Hydroxide (Mylanta Plus Xs) 30 ml PRN Q3HRS PRN PO HEARTBURN / GAS; Start 10/20/20 at 16:15 Calcium Carbonate/ Glycine (Tums) 500 mg PRN Q3HRS PRN PO UPSET STOMACH; Start 10/20/20 at 16:15 Zolpidem Tartrate (Ambien) 5 mg PRN QHS PRN PO INSOMNIA, MAY REPEAT IN 1HR Last administered on 10/20/20at 21:39; Start 10/20/20 at 16:15 Acetaminophen (Tylenol) 650 mg PRN Q6HRS PRN PO Headaches, Temp > 101.5F Last administered on 10/22/20at 21:09; Start 10/20/20 at 16:15 Magnesium Hydroxide (Milk Of Magnesia) 2,400 mg PRN Q12HR PRN PO CONSTIPATION Last administered on 10/22/20 06:11; Start 10/20/20 at 16:15 Bisacodyl (Dulcolax Supp) 10 mg PRN DAILY PRN [place] CONSTIPATION; Start 10/20/20 at 16:15 Heparin Sodium (Porcine) (Heparin Sodium) 5,000 unit Q8HRS SQ Last administered on 10/24/20at 04:55; Start 10/20/20 at 16:30 Morphine Sulfate (Morphine Sulfate) 4 mg PRN Q2HR PRN IV MODERATE TO SEVERE PAIN Last administered on 10/23/20 12:06; Start 10/20/20 at 16:30 Tramadol HCl (Ultram) 50 mg PRN Q6HRS PRN PO MILD TO MODERATE PAIN Last administered on 10/24/20 08:25; Start 10/20/20 at 16:30 Amlodipine Besylate (Norvasc) 10 mg DAILY PO Last administered on 10/23/20 08:10; Start 10/21/20 at 09:00 Aspirin (Aspirin Chewable) 81 mg DAILYWBKFT PO Last administered on 10/24/20 08:17; Start 10/21/20 at 08:00 Clopidogrel Bisulfate (Plavix) 75 mg DAILY PO Last administered on 10/24/20 08:19; Start 10/21/20 at 09:00 Furosemide (Lasix) 80 mg BID92 PO Last administered on 10/21/20at 08:54; Start 10/20/20 at 17:30; Stop 10/21/20 at 09:37; Status DC Pantoprazole Sodium (Protonix) 40 mg BIDAC PO Last administered on 10/24/20 08:19; Start 10/20/20 at 17:30 Senna/Docusate Sodium (Senna Plus) 2 tab PRN QEVNG PRN PO CONSTIPATION; Start 10/20/20 at 17:30 Spironolactone (Aldactone) 25 mg DAILY PO Last administered on 10/21/20 08:52; Start 10/21/20 at 09:00; Stop 10/21/20 at 14:06; Status DC Tamsulosin HCl (Flomax) 0.4 mg DAILY PO Last administered on 10/24/20 08:19; Start 10/21/20 at 09:00 Carvedilol (Coreg) 25 mg BIDWMEALS PO Last administered on 10/24/20 08:18; Start 10/20/20 at 17:30 Gabapentin (Neurontin) 300 mg TID PO Last administered on 10/24/20 08:20; Start 10/20/20 at 21:00 Hydralazine HCl (Apresoline) 100 mg TID PO Last administered on 10/24/20 08:19; Start 10/20/20 at 21:00 Insulin Human Lispro (HumaLOG) 30 units TIDWMEALS SQ Last administered on 10/24/20at 08:47; Start 10/21/20 at 08:00 Insulin Glargine (Lantus Syringe) 60 unit QHS SQ Last administered on 10/22/20at 21:17; Start 10/20/20 at 21:00; Stop 10/23/20 at 13:07; Status DC Isosorbide Dinitrate (Isordil) 5 mg TID PO Last administered on 10/24/20at 08:17; Start 10/20/20 at 21:00 Atorvastatin Calcium (Lipitor) 80 mg QHS PO Last administered on 10/23/20at 20:28; Start 10/20/20 at 21:00 Lorazepam (Ativan Inj) 1 mg PRN Q4HRS PRN IVP ANXIETY / AGITATION Last administered on 10/22/20at 11:57; Start 10/20/20 at 17:30 Insulin Glargine (Lantus Syringe) 70 unit QHS SQ Last administered on 10/23/20at 20:26; Start 10/23/20 at 21:00 Lidocaine (Lidoderm) 2 patch DAILY TD ; Start 10/24/20 at 09:00 Miscellaneous (Lidoderm Patch Removal) 1 ea QHS MC ; Start 10/24/20 at 21:00 Active Scripts Active Flomax (Tamsulosin Hcl) 0.4 Mg Cap.er.24h 0.4 Mg PO DAILY Children's Aspirin (Aspirin) 81 Mg Tab.chew 81 Mg PO DAILYWBKFT Reported Senna-Docusate Sodium Tablet (Sennosides/Docusate Sodium) 1 Each Tablet 2 Tab PO PRN QEVNG PRN 5 Days Spironolactone 25 Mg Tablet 25 Mg PO DAILY Vitamin D2 (Ergocalciferol (Vitamin D2)) 1,250 Mcg Capsule 1,250 Mcg PO WEEKLY Lasix (Furosemide) 80 Mg Tablet 80 Mg PO BID Clopidogrel (Clopidogrel Bisulfate) 75 Mg Tablet 75 Mg PO DAILY Carvedilol 25 Mg Tablet 25 Mg PO BIDWMEALS Isosorbide Dinitrate 40 Mg Tablet.er 5 Mg PO TID Gabapentin 600 Mg Tablet 300 Mg PO TID Protonix (Pantoprazole Sodium) 40 Mg Tablet.dr 40 Mg PO BID Hydralazine Hcl 100 Mg Tablet 100 Mg PO TID Amlodipine Besylate 10 Mg Tablet 10 Mg PO DAILY Crestor (Rosuvastatin Calcium) 20 Mg Tablet 20 Mg PO QHS Levemir Flexpen (Insulin Detemir) 100 Unit/1 Ml Insuln.pen 60 Unit SQ HS Novolog Flexpen (Insulin Aspart) 100 Unit/1 Ml Insuln.pen 30 Unit SQ TIDAC Vitals/I & O Vital Sign - Last 24 Hours 10/23/20 10/23/20 10/23/20 10/23/20 10:49 12:06 12:36 13:33 Temp 98.4 98.4 Pulse 86 86 Resp 24 18 B/P (MAP) 139/50 (79) 119/64 Pulse Ox 94 94 94 O2 Delivery Nasal Cannula Nasal Cannula Nasal Cannula O2 Flow Rate 4.0 4.0 4.0 10/23/20 10/23/20 10/23/20 10/23/20 13:34 15:00 16:15 19:37 Temp 98.1 98.1 Pulse 84 87 87 Resp 24 B/P (MAP) 119/64 117/59 (78) 117/59 Pulse Ox 94 O2 Delivery Nasal Cannula Nasal Cannula O2 Flow Rate 4.0 3.0 10/23/20 10/23/20 10/23/20 10/23/20 19:44 20:28 20:28 21:37 Temp 98.2 98.2 Pulse 95 95 95 Resp B/P (MAP) 158/40 (79) 158/40 158/40 Pulse Ox 95 O2 Delivery Nasal Cannula Nasal Cannula O2 Flow Rate 4.0 4.0 10/23/20 10/23/20 10/24/20 10/24/20 22:37 22:48 03:04 03:31 Temp 98.0 98.5 98.0 98.5 Pulse 84 78 Resp 20 24 24 20 B/P (MAP) 123/52 (75) 125/55 (78) Pulse Ox 93 99 O2 Delivery Nasal Cannula Nasal Cannula Nasal Cannula O2 Flow Rate 4.0 4.0 4.0 10/24/20 10/24/20 10/24/20 10/24/20 04:31 07:00 08:17 08:18 Temp 100.4 100.4 Pulse 71 76 76 Resp 24 B/P (MAP) 134/59 (84) 134/59 134/59 Pulse Ox 99 O2 Delivery BiPAP/CPAP Nasal Cannula O2 Flow Rate 4.0 10/24/20 10/24/20 08:19 08:25 Pulse 76 Resp 20 B/P (MAP) 134/59 Pulse Ox 92 O2 Delivery Nasal Cannula O2 Flow Rate 4.0 Intake and Output 10/23/20 10/23/20 10/24/20 14:56 22:56 06:56 Intake Total 480 ml 360 ml 240 ml Output Total 900 ml 1000 ml 750 ml Balance -420 ml -640 ml -510 ml Justicifation of Admission Dx: Justifications for Admission: Justification of Admission Dx: N/A CHANELL ALBERTS MD Oct 24, 2020 09:12
[2020-10-24 09:14] LABS: BASO # 0.1 x10^3/uL (0.0-0.2); BASO % 1 % (0-3); EOS # 0.1 x10^3/uL (0.0-0.7); EOS % 1 % (0-3); HEMATOCRIT 22.2 % (39.0-53.0); HEMOGLOBIN 7.4 g/dL (13.0-17.5); LYMPH # 1.4 x10^3/uL (1.0-4.8); LYMPH % 16 % (24-48); MEAN CORPUSCULAR HEMOGLOBIN 30 pg (25-35); MEAN CORPUSCULAR HGB CONC 34 g/dL (31-37); MEAN CORPUSCULAR VOLUME 90 fL (79-100); MONO # 0.8 x10^3/uL (0.0-1.1); MONO % 10 % (0-9); NEUT # 6.4 x10^3/uL (1.8-7.7); NEUT % 73 % (31-73); PLATELET COUNT 221 x10^3/uL (140-400); RED BLOOD COUNT 2.46 x10^6/uL (4.30-5.70); RED CELL DISTRIBUTION WIDTH 14.8 % (11.5-14.5); WHITE BLOOD COUNT 8.8 x10^3/uL (4.0-11.0)
[2020-10-24 09:26] LABS: ALBUMIN 2.8 g/dL (3.4-5.0); ALBUMIN/GLOBULIN RATIO 0.7 (1.0-1.7); CALCIUM 8.8 mg/dL (8.5-10.1); CREATININE 3.5 mg/dL (0.7-1.3); TOTAL BILIRUBIN 0.6 mg/dL (0.2-1.0); TOTAL PROTEIN 6.7 g/dL (6.4-8.2)
[2020-10-24] MEDS: LIDOCAINE (700MG/PATCH) PATCH. TD SCH (09:42)
[2020-10-24 11:00] VITALS: BP 126/48
--- NOTE | 2020-10-24 12:32 | PDOC ---
DATE OF SERVICE DATE: 10/24/20 TIME: 12:23 SUBJECTIVE ROS Stable, states feels little better . he reports his egfr W 35 approx 2 weeks ago, seen in our office OBJECTIVE Vital Signs Vital Signs Date Time Temp Pulse Resp B/P (MAP) Pulse Ox O2 Delivery O2 Flow Rate FiO2 10/24/20 11:00 97.9 68 24 126/48 (74) 97 Nasal Cannula 4.0 97.9 I & 0 Intake and Output 10/24/20 06:56 Intake Total 1080 ml Output Total 2650 ml Balance -1570 ml Intake Oral 1080 ml Output Urine Total 2650 ml PHYSICAL EXAM Physical Exam General: Alert, Oriented X3, Cooperative, No acute distress HEENT: Atraumatic, Mucous membr. moist/pin, On o2 by NC Neck supple Lungs: Decreased at bases, Non labored Heart: distant heart sounds Abdomen: Soft, Morbidly obese Extremities: LE edema + Skin: No breakdown, No significant lesion Neuro: Normal speech, Sensation intact Alvarez in place DIAGNOSIS/ASSESSMENT Assessment & Plan MARQUISE on CKD- ATN , , NonOliguric, good UOP , Renal function ? Plateau Supportive care, hold Lasix (held yesterday as well ) , IV NS bouls if low BP / or decrease in UOP, avoid nephrotoxins , Strict I/O , Monitor Labs QD CKD stage 3 B- Per pr eGFR revcently as OP was 35 . Will Obtain records from our office . No labs available since 2017 in the chart Ac Resp failure - Stable on O2 by CT, Cxr No e/o pulm Congestion , Morbidly Obese, ROXANNE, COPD Acute on chronic diastolic CHF: due to noncompliance and continued cocaine use. CxR unremarkable AECOPD with continued tobaccoism ROXANNE: uses CPAP at home Substance abuse: uses cocaine HTN urgency: improved PAD: prior bypass, clinically stable DM2: reports 200s usually at home, Uncontrolled Anemia likely from chronic disease: Hgb 7.3 , Tsats Low. MOREIRA per primary as indicated COMMENT/RELEVANT DATA Meds Current Medications Medications (Trade) Dose Ordered Sig/Kiera Start Time Stop Time Status Last Admin Dose Admin Acetaminophen (Tylenol) 650 mg PRN Q6HRS PRN 10/20/20 16:15 10/22/20 21:09 650 MG Al Hydroxide/Mg Hydroxide (Mylanta Plus Xs) 30 ml PRN Q3HRS PRN 10/20/20 16:15 Amlodipine Besylate (Norvasc) 10 mg DAILY 10/21/20 09:00 10/23/20 08:10 10 MG Aspirin (Aspirin Chewable) 81 mg DAILYWBKFT 10/21/20 08:00 10/24/20 08:17 81 MG Atorvastatin Calcium (Lipitor) 80 mg QHS 10/20/20 21:00 10/23/20 20:28 80 MG Bisacodyl (Dulcolax Supp) 10 mg PRN DAILY PRN 10/20/20 16:15 Calcium Carbonate/ Glycine (Tums) 500 mg PRN Q3HRS PRN 10/20/20 16:15 Carvedilol (Coreg) 25 mg BIDWMEALS 10/20/20 17:30 10/24/20 08:18 25 MG Clopidogrel Bisulfate (Plavix) 75 mg DAILY 10/21/20 09:00 10/24/20 08:19 75 MG Dextrose (Dextrose 50%-Water Syringe) 12.5 gm PRN Q15MIN PRN 10/20/20 15:45 Furosemide (Lasix) 80 mg BID92 10/20/20 17:30 10/21/20 09:37 DC 10/21/20 08:54 80 MG Gabapentin (Neurontin) 300 mg TID 10/20/20 21:00 10/24/20 08:20 300 MG Heparin Sodium (Porcine) (Heparin Sodium) 5,000 unit Q8HRS 10/20/20 16:30 10/24/20 04:55 5,000 UNIT Hydralazine HCl (Apresoline Inj) 10 mg PRN Q20MIN PRN 10/20/20 15:30 10/20/20 16:28 10 MG Hydralazine HCl (Apresoline) 100 mg TID 10/20/20 21:00 10/24/20 08:19 100 MG Insulin Glargine (Lantus Syringe) 70 unit QHS 10/23/20 21:00 10/23/20 20:26 70 UNIT Insulin Human Lispro (HumaLOG) 30 units TIDWMEALS 10/21/20 08:00 10/24/20 08:47 30 UNITS Isosorbide Dinitrate (Isordil) 5 mg TID 10/20/20 21:00 10/24/20 08:17 5 MG Lidocaine (Lidoderm) 2 patch DAILY 10/24/20 09:00 10/24/20 09:42 2 PATCH Lorazepam (Ativan Inj) 1 mg PRN Q4HRS PRN 10/20/20 17:30 10/22/20 11:57 1 MG Magnesium Hydroxide (Milk Of Magnesia) 2,400 mg PRN Q12HR PRN 10/20/20 16:15 10/22/20 06:11 2,400 MG Miscellaneous (Lidoderm Patch Removal) 1 ea QHS 10/24/20 21:00 Morphine Sulfate (Morphine Sulfate) 4 mg PRN Q2HR PRN 10/20/20 16:30 10/23/20 12:06 4 MG Nitroglycerin (Nitro-Bid Oint) 1 inch 1X ONCE 10/20/20 13:15 10/20/20 13:16 DC 10/20/20 13:22 1 INCH Ondansetron HCl (Zofran) 4 mg PRN Q6HRS PRN 10/20/20 16:15 10/22/20 11:57 4 MG Pantoprazole Sodium (Protonix) 40 mg BIDAC 10/20/20 17:30 10/24/20 08:19 40 MG Senna/Docusate Sodium (Senna Plus) 2 tab PRN QEVNG PRN 10/20/20 17:30 Spironolactone (Aldactone) 25 mg DAILY 10/21/20 09:00 10/21/20 14:06 DC 10/21/20 08:52 25 MG Tamsulosin HCl (Flomax) 0.4 mg DAILY 10/21/20 09:00 10/24/20 08:19 0.4 MG Tramadol HCl (Ultram) 50 mg PRN Q6HRS PRN 10/20/20 16:30 10/24/20 08:25 50 MG Zolpidem Tartrate (Ambien) 5 mg PRN QHS PRN 10/20/20 16:15 10/20/20 21:39 5 MG Lab Laboratory Tests Test 10/23/20 12:50 10/23/20 16:36 10/23/20 20:23 10/24/20 08:06 White Blood Count 8.2 x10^3/uL (4.0-11.0) Red Blood Count 2.81 x10^6/uL (4.30-5.70) Hemoglobin 8.1 g/dL (13.0-17.5) Hematocrit 25.1 % (39.0-53.0) Mean Corpuscular Volume 89 fL (79-100) Mean Corpuscular Hemoglobin 29 pg (25-35) Mean Corpuscular Hemoglobin Concent 32 g/dL (31-37) Red Cell Distribution Width 15.1 % (11.5-14.5) Platelet Count 254 x10^3/uL (140-400) Neutrophils (%) (Auto) 75 % (31-73) Lymphocytes (%) (Auto) 18 % (24-48) Monocytes (%) (Auto) 5 % (0-9) Eosinophils (%) (Auto) 2 % (0-3) Basophils (%) (Auto) 0 % (0-3) Neutrophils # (Auto) 6.1 x10^3/uL (1.8-7.7) Lymphocytes # (Auto) 1.4 x10^3/uL (1.0-4.8) Monocytes # (Auto) 0.4 x10^3/uL (0.0-1.1) Eosinophils # (Auto) 0.2 x10^3/uL (0.0-0.7) Basophils # (Auto) 0.0 x10^3/uL (0.0-0.2) Sodium Level 139 mmol/L (136-145) Potassium Level 4.7 mmol/L (3.5-5.1) Chloride Level 105 mmol/L (98-107) Carbon Dioxide Level 25 mmol/L (21-32) Anion Gap 9 (6-14) Blood Urea Nitrogen 46 mg/dL (8-26) Creatinine 3.5 mg/dL (0.7-1.3) Estimated GFR (Cockcroft-Gault) 22.0 BUN/Creatinine Ratio 13 (6-20) Glucose Level 170 mg/dL (70-99) Calcium Level 8.9 mg/dL (8.5-10.1) Total Bilirubin 0.4 mg/dL (0.2-1.0) Aspartate Amino Transf (AST/SGOT) 76 U/L (15-37) Alanine Aminotransferase (ALT/SGPT) 27 U/L (16-63) Alkaline Phosphatase 60 U/L (46-116) Total Protein 7.6 g/dL (6.4-8.2) Albumin 3.3 g/dL (3.4-5.0) Albumin/Globulin Ratio 0.8 (1.0-1.7) Glucose (Fingerstick) 104 mg/dL (70-99) 186 mg/dL (70-99) 243 mg/dL (70-99) Test 10/24/20 08:55 10/24/20 11:45 White Blood Count 8.8 x10^3/uL (4.0-11.0) Red Blood Count 2.46 x10^6/uL (4.30-5.70) Hemoglobin 7.4 g/dL (13.0-17.5) Hematocrit 22.2 % (39.0-53.0) Mean Corpuscular Volume 90 fL (79-100) Mean Corpuscular Hemoglobin 30 pg (25-35) Mean Corpuscular Hemoglobin Concent 34 g/dL (31-37) Red Cell Distribution Width 14.8 % (11.5-14.5) Platelet Count 221 x10^3/uL (140-400) Neutrophils (%) (Auto) 73 % (31-73) Lymphocytes (%) (Auto) 16 % (24-48) Monocytes (%) (Auto) 10 % (0-9) Eosinophils (%) (Auto) 1 % (0-3) Basophils (%) (Auto) 1 % (0-3) Neutrophils # (Auto) 6.4 x10^3/uL (1.8-7.7) Lymphocytes # (Auto) 1.4 x10^3/uL (1.0-4.8) Monocytes # (Auto) 0.8 x10^3/uL (0.0-1.1) Eosinophils # (Auto) 0.1 x10^3/uL (0.0-0.7) Basophils # (Auto) 0.1 x10^3/uL (0.0-0.2) Sodium Level 136 mmol/L (136-145) Potassium Level 5.0 mmol/L (3.5-5.1) Chloride Level 103 mmol/L (98-107) Carbon Dioxide Level 24 mmol/L (21-32) Anion Gap 9 (6-14) Blood Urea Nitrogen 55 mg/dL (8-26) Creatinine 3.5 mg/dL (0.7-1.3) Estimated GFR (Cockcroft-Gault) 22.0 BUN/Creatinine Ratio 16 (6-20) Glucose Level 229 mg/dL (70-99) Calcium Level 8.8 mg/dL (8.5-10.1) Iron Level 22 ug/dL (65-175) Total Iron Binding Capacity 247 ug/dL (250-450) Iron Saturation 9 % (15-34) Ferritin 167 ng/mL (26-388) Total Bilirubin 0.6 mg/dL (0.2-1.0) Aspartate Amino Transf (AST/SGOT) 68 U/L (15-37) Alanine Aminotransferase (ALT/SGPT) 27 U/L (16-63) Alkaline Phosphatase 49 U/L (46-116) Total Protein 6.7 g/dL (6.4-8.2) Albumin 2.8 g/dL (3.4-5.0) Albumin/Globulin Ratio 0.7 (1.0-1.7) Glucose (Fingerstick) 239 mg/dL (70-99) Results All relevant outside records, renal labs, imaging studies, telemetry/EKG's were reviewed. Justicifation of Admission Dx: Justifications for Admission: Justification of Admission Dx: N/A NATASHA MCDONALD MD Oct 24, 2020 12:32
--- NOTE | 2020-10-24 13:04 | PDOC ---
AGUILAR TRIPATHI WELT SEWER 10/24/20 1304: CARDIO Progress Notes Date and Time Date of Service 10/24/20 Time of Evaluation 1210 Subjective Subjective: No Chest Pain, No Palpitations, Other (c/o pain down his legs) Vitals Vitals Vital Signs Date Time Temp Pulse Resp B/P (MAP) Pulse Ox O2 Delivery O2 Flow Rate FiO2 10/24/20 11:00 97.9 68 24 126/48 (74) 97 Nasal Cannula 4.0 97.9 Weight Weight [ ] Input and Output Intake and Output Intake and Output 10/24/20 07:00 Intake Total 1080 ml Output Total 2650 ml Balance -1570 ml Intake Oral 1080 ml Output Urine Total 2650 ml Laboratory Labs Laboratory Tests Test 10/23/20 16:36 10/23/20 20:23 10/24/20 08:06 10/24/20 08:55 Glucose (Fingerstick) 104 mg/dL (70-99) 186 mg/dL (70-99) 243 mg/dL (70-99) White Blood Count 8.8 x10^3/uL (4.0-11.0) Red Blood Count 2.46 x10^6/uL (4.30-5.70) Hemoglobin 7.4 g/dL (13.0-17.5) Hematocrit 22.2 % (39.0-53.0) Mean Corpuscular Volume 90 fL (79-100) Mean Corpuscular Hemoglobin 30 pg (25-35) Mean Corpuscular Hemoglobin Concent 34 g/dL (31-37) Red Cell Distribution Width 14.8 % (11.5-14.5) Platelet Count 221 x10^3/uL (140-400) Neutrophils (%) (Auto) 73 % (31-73) Lymphocytes (%) (Auto) 16 % (24-48) Monocytes (%) (Auto) 10 % (0-9) Eosinophils (%) (Auto) 1 % (0-3) Basophils (%) (Auto) 1 % (0-3) Neutrophils # (Auto) 6.4 x10^3/uL (1.8-7.7) Lymphocytes # (Auto) 1.4 x10^3/uL (1.0-4.8) Monocytes # (Auto) 0.8 x10^3/uL (0.0-1.1) Eosinophils # (Auto) 0.1 x10^3/uL (0.0-0.7) Basophils # (Auto) 0.1 x10^3/uL (0.0-0.2) Sodium Level 136 mmol/L (136-145) Potassium Level 5.0 mmol/L (3.5-5.1) Chloride Level 103 mmol/L (98-107) Carbon Dioxide Level 24 mmol/L (21-32) Anion Gap 9 (6-14) Blood Urea Nitrogen 55 mg/dL (8-26) Creatinine 3.5 mg/dL (0.7-1.3) Estimated GFR (Cockcroft-Gault) 22.0 BUN/Creatinine Ratio 16 (6-20) Glucose Level 229 mg/dL (70-99) Calcium Level 8.8 mg/dL (8.5-10.1) Iron Level 22 ug/dL (65-175) Total Iron Binding Capacity 247 ug/dL (250-450) Iron Saturation 9 % (15-34) Ferritin 167 ng/mL (26-388) Total Bilirubin 0.6 mg/dL (0.2-1.0) Aspartate Amino Transf (AST/SGOT) 68 U/L (15-37) Alanine Aminotransferase (ALT/SGPT) 27 U/L (16-63) Alkaline Phosphatase 49 U/L (46-116) Total Protein 6.7 g/dL (6.4-8.2) Albumin 2.8 g/dL (3.4-5.0) Albumin/Globulin Ratio 0.7 (1.0-1.7) Test 10/24/20 11:45 Glucose (Fingerstick) 239 mg/dL (70-99) Physical Exam HEENT: Neck Supple W Full Motion Chest: Symmetric LUNGS: Other (diminished bases) Heart: RRR Abdomen: Soft N/T, Other (obese ) Extremities: Other (trace bilateral LE edema ) Neurology: alert, oriented, follow commands, other (drowsy ) Assessment Assessment 1. Acute on chronic diastolic CHF: due to noncompliance and continued cocaine use 2. AECOPD with continued tobaccoism 3. ROXANNE: uses CPAP at home 4. CKD3-4: Cr ^ 3.5 5. Substance abuse: cocaine 6. Tobaccoism 7. HTN urgency: now controlled 8. PAD: prior bypass, clinically stable 9. HLP; LDL 64 10. Diabetes, II 11. Atypical CP: possibly MSK. Is reproducible to palpation. AMI ruled out. Echo with preserved LV systolic function 12. PUI: negative for covid 13. Normocytic anemia likely from chronic disease: Hgb 7.4 no obvious bleed Recommendations Hold Lasix with ^ Cr Reinforced compliance with meds and smoking, cocaine cessation ASA/plavix, statin therapy Monitor H and H Continue current BP regimen Follow up with [facility] cardiology. Outpatient ischemic evaluation Justicifation of Admission Dx: Justifications for Admission: Justification of Admission Dx: N/A SALVADOR ANDERSON MD 10/24/20 1619: CARDIO Progress Notes Assessment Assessment Patient seen and examined I agree with our nurse practitioners assessment and plan as above. Acute on chronic diastolic CHF: due to noncompliance and continued cocaine use. Improving. AECOPD with continued tobaccoism ROXANNE: uses CPAP at home CKD3-4: Cr ^ 3.5 Substance abuse: cocaine HTN urgency: now controlled PAD: prior bypass, clinically stable HLP; LDL 64 Atypical CP: possibly MSK. Is reproducible to palpation. AMI ruled out. Echo with preserved LV systolic function AGUILAR TRIPATHI APRN Oct 24, 2020 13:04 SALVADOR ANDERSON MD Oct 24, 2020 16:19
[2020-10-24] MEDS: IRON POLYSACCHARIDE COMPLEX 150 MG CAPSULE PO SCH (14:57)
[2020-10-24 15:00] VITALS: BP 146/68
--- NOTE | 2020-10-24 15:39 | NUR ---
SS following for discharge planning. SS reviewed pt chart and discussed with pt RN. Pt is from home and is currently requiring oxygen at four liters nasal canula. BIPAP HS. COVID19 negative. PT/OT recommended acute rehabilitation. SS met with pt and discussed discharge planning and acute rehabilitation. Pt agreeable to acute rehabilitation with no preference of company. SS phoned and faxed referral to [facility] [address], ; fax [phone]. SS will continue to follow for discharge planning.
[2020-10-24 16:53] LABS: BILIRUBIN,URINE NEGATIVE (NEG); CLARITY,URINE CLEAR; COLOR,URINE YELLOW; NITRITE,URINE NEGATIVE (NEG); PROTEIN,URINE 100 mg/dL (NEG-TRACE); UROBILINOGEN,URINE 0.2 mg/dL (0.2 mg/dL)
[2020-10-24 17:04] LABS: BACTERIA,URINE FEW /HPF (0-FEW)
[2020-10-24 19:45] VITALS: BP 162/65
[2020-10-24] MEDS: PATCH REMOVAL. MC SCH (21:00)
[2020-10-24] MEDS: ATORVASTATIN CALCIUM 40 MG TABLET. PO SCH (21:42)
[2020-10-24] MEDS: ACETAMINOPHEN 325 MG TABLET. PO PRN (21:45)
[2020-10-24] MEDS: INSULIN GLARGINE SYRINGE. SQ SCH (22:01)
[2020-10-24 23:20] VITALS: BP 134/56
[2020-10-25 01:11] LABS: HEMOGLOBIN A1C 6.9 % (4.8-5.6)
[2020-10-25] MEDS: HEPARIN for SUB-Q USE 5,000 UNIT/ML VIAL. SQ SCH ×3 (06:26→22:24)
[2020-10-25 07:00] VITALS: BP 140/65
[2020-10-25] MEDS: INSULIN LISPRO 300 UNITS/3 ML VIAL. SQ SCH ×6 (08:00→18:40)
[2020-10-25] MEDS: CARVEDILOL 12.5 MG TABLET. PO SCH ×2 (08:47→22:09)
[2020-10-25] MEDS: LIDOCAINE (700MG/PATCH) PATCH. TD SCH (08:47)
[2020-10-25] MEDS: CLOPIDOGREL BISULFATE 75 MG TABLET PO SCH (08:47)
[2020-10-25] MEDS: ASPIRIN CHEWABLE 81 MG TABLET. PO SCH (08:47)
[2020-10-25] MEDS: TAMSULOSIN 0.4 MG CAP.ER.24H. PO SCH (08:48)
[2020-10-25] MEDS: IRON POLYSACCHARIDE COMPLEX 150 MG CAPSULE PO SCH (08:48)
[2020-10-25] MEDS: amLODIPine BESYLATE 10 MG TABLET PO SCH (08:48)
[2020-10-25] MEDS: PANTOPRAZOLE 40 MG TABLET.DR. PO SCH ×2 (08:49→15:32)
[2020-10-25] MEDS: GABAPENTIN 300 MG CAPSULE. PO SCH ×3 (08:49→22:09)
[2020-10-25] MEDS: ISOSORBIDE DINITRATE 10 MG TABLET. PO SCH ×3 (08:49→22:09)
[2020-10-25 08:56] LABS: BASO % 1 % (0-3); EOS # 0.1 x10^3/uL (0.0-0.7); EOS % 2 % (0-3); HEMATOCRIT 22.6 % (39.0-53.0); HEMOGLOBIN 7.2 g/dL (13.0-17.5); LYMPH # 1.1 x10^3/uL (1.0-4.8); LYMPH % 15 % (24-48); MEAN CORPUSCULAR HEMOGLOBIN 29 pg (25-35); MEAN CORPUSCULAR HGB CONC 32 g/dL (31-37); MEAN CORPUSCULAR VOLUME 90 fL (79-100); MONO # 0.5 x10^3/uL (0.0-1.1); MONO % 7 % (0-9); NEUT # 5.4 x10^3/uL (1.8-7.7); NEUT % 75 % (31-73); PLATELET COUNT 202 x10^3/uL (140-400); RED BLOOD COUNT 2.53 x10^6/uL (4.30-5.70); RED CELL DISTRIBUTION WIDTH 15.1 % (11.5-14.5); WHITE BLOOD COUNT 7.2 x10^3/uL (4.0-11.0)
[2020-10-25 09:26] LABS: CALCIUM 9.3 mg/dL (8.5-10.1); CREATININE 3.7 mg/dL (0.7-1.3); GFR 20.7; POTASSIUM 4.7 mmol/L (3.5-5.1)
--- NOTE | 2020-10-25 10:33 | PDOC ---
DATE OF SERVICE DATE: 10/25/20 TIME: 10:32 SUBJECTIVE ROS Pt reports he cannot move netta his LE's . OBJECTIVE Vital Signs Vital Signs Date Time Temp Pulse Resp B/P (MAP) Pulse Ox O2 Delivery O2 Flow Rate FiO2 10/25/20 09:23 97 Nasal Cannula 1.0 10/25/20 08:49 69 140/65 10/25/20 07:00 97.9 20 97.9 I & 0 Intake and Output 10/25/20 07:00 Intake Total 1450 ml Output Total 1500 ml Balance -50 ml Intake Oral 1450 ml Output Urine Total 1500 ml # Bowel Movements 1 PHYSICAL EXAM Physical Exam General: Alert, Oriented X3, Cooperative, No acute distress HEENT: Atraumatic, Mucous membr. moist/pin, On o2 by NC Neck supple Lungs: Decreased at bases, Non labored Heart: distant heart sounds Abdomen: Soft, Morbidly obese Extremities: LE edema + Skin: No breakdown, No significant lesion Neuro: Normal speech, Sensation intact. Unable to move LE Avlarez in place DIAGNOSIS/ASSESSMENT Assessment & Plan MARQUISE on CKD- ATN , , NonOliguric, good UOP , Renal function ? Plateau Supportive care, hold Lasix (held since saturday ) ,Check CK, IV NS dw RN, , avoid nephrotoxins, Strict I/O , Monitor Labs QD CKD stage 3 B- Per pr eGFR revcently as OP was 35 . Will Obtain records from our office . No labs available since 2017 in the chart Generalized weakness- netta LE, Awaiting Neuro eval r/o other etiologies , if no improvement in renal function and symptoms, will initiate Dialysis Ac Resp failure - Stable on O2 by NC, Cxr No e/o pulm Congestion , Morbidly Obese, ROXANNE, COPD Acute on chronic diastolic CHF: due to noncompliance and continued cocaine use. CxR unremarkable AECOPD with continued tobaccoism ROXANNE: uses CPAP at home Substance abuse: uses cocaine HTN urgency: improved PAD: prior bypass, clinically stable DM2: reports 200s usually at home, Uncontrolled Anemia likely from chronic disease: Hgb 7.3 , Tsats Low. MOREIRA per primary as indicated COMMENT/RELEVANT DATA Meds Current Medications Medications (Trade) Dose Ordered Sig/Kiera Start Time Stop Time Status Last Admin Dose Admin Acetaminophen (Tylenol) 650 mg PRN Q6HRS PRN 10/20/20 16:15 10/24/20 21:45 650 MG Al Hydroxide/Mg Hydroxide (Mylanta Plus Xs) 30 ml PRN Q3HRS PRN 10/20/20 16:15 Amlodipine Besylate (Norvasc) 10 mg DAILY 10/21/20 09:00 10/25/20 08:48 10 MG Aspirin (Aspirin Chewable) 81 mg DAILYWBKFT 10/21/20 08:00 10/25/20 08:47 81 MG Atorvastatin Calcium (Lipitor) 80 mg QHS 10/20/20 21:00 10/24/20 21:42 80 MG Bisacodyl (Dulcolax Supp) 10 mg PRN DAILY PRN 10/20/20 16:15 Calcium Carbonate/ Glycine (Tums) 500 mg PRN Q3HRS PRN 10/20/20 16:15 Carvedilol (Coreg) 25 mg BIDWMEALS 10/20/20 17:30 10/25/20 08:47 25 MG Clopidogrel Bisulfate (Plavix) 75 mg DAILY 10/21/20 09:00 10/25/20 08:47 75 MG Dextrose (Dextrose 50%-Water Syringe) 12.5 gm PRN Q15MIN PRN 10/20/20 15:45 Furosemide (Lasix) 80 mg BID92 10/20/20 17:30 10/21/20 09:37 DC 10/21/20 08:54 80 MG Gabapentin (Neurontin) 300 mg TID 10/20/20 21:00 10/25/20 08:49 300 MG Heparin Sodium (Porcine) (Heparin Sodium) 5,000 unit Q8HRS 10/20/20 16:30 10/25/20 06:26 5,000 UNIT Hydralazine HCl (Apresoline Inj) 10 mg PRN Q20MIN PRN 10/20/20 15:30 10/20/20 16:28 10 MG Hydralazine HCl (Apresoline) 100 mg TID 10/20/20 21:00 10/25/20 08:48 100 MG Insulin Glargine (Lantus Syringe) 70 unit QHS 10/23/20 21:00 10/24/20 22:01 70 UNIT Insulin Human Lispro (HumaLOG) 30 units TIDWMEALS 10/21/20 08:00 10/25/20 08:53 20 UNITS Isosorbide Dinitrate (Isordil) 5 mg TID 10/20/20 21:00 10/25/20 08:49 5 MG Lidocaine (Lidoderm) 2 patch DAILY 10/24/20 09:00 10/25/20 08:47 2 PATCH Lorazepam (Ativan Inj) 1 mg PRN Q4HRS PRN 10/20/20 17:30 10/22/20 11:57 1 MG Magnesium Hydroxide (Milk Of Magnesia) 2,400 mg PRN Q12HR PRN 10/20/20 16:15 10/22/20 06:11 2,400 MG Miscellaneous (Lidoderm Patch Removal) 1 ea QHS 10/24/20 21:00 Morphine Sulfate (Morphine Sulfate) 4 mg PRN Q2HR PRN 10/20/20 16:30 10/23/20 12:06 4 MG Nitroglycerin (Nitro-Bid Oint) 1 inch 1X ONCE 10/20/20 13:15 10/20/20 13:16 DC 10/20/20 13:22 1 INCH Ondansetron HCl (Zofran) 4 mg PRN Q6HRS PRN 10/20/20 16:15 10/22/20 11:57 4 MG Pantoprazole Sodium (Protonix) 40 mg BIDAC 10/20/20 17:30 10/25/20 08:49 40 MG Polysaccharide Iron Complex (Niferex 150) 150 mg DAILY 10/24/20 14:00 10/25/20 08:48 150 MG Senna/Docusate Sodium (Senna Plus) 2 tab PRN QEVNG PRN 10/20/20 17:30 Spironolactone (Aldactone) 25 mg DAILY 10/21/20 09:00 10/21/20 14:06 DC 10/21/20 08:52 25 MG Tamsulosin HCl (Flomax) 0.4 mg DAILY 10/21/20 09:00 10/25/20 08:48 0.4 MG Tramadol HCl (Ultram) 50 mg PRN Q6HRS PRN 10/20/20 16:30 10/24/20 08:25 50 MG Zolpidem Tartrate (Ambien) 5 mg PRN QHS PRN 10/20/20 16:15 10/20/20 21:39 5 MG Lab Laboratory Tests Test 10/24/20 11:45 10/24/20 16:00 10/24/20 17:16 10/24/20 21:39 Glucose (Fingerstick) 239 mg/dL (70-99) 172 mg/dL (70-99) 157 mg/dL (70-99) Urine Collection Type Unknown Urine Color Yellow Urine Clarity Clear Urine pH 5.0 (<5.0-8.0) Urine Specific [place] 1.020 (1.000-1.030) Urine Protein 100 mg/dL (NEG-TRACE) Urine Glucose (UA) Negative mg/dL (NEG) Urine Ketones (Stick) Negative mg/dL (NEG) Urine Blood Trace (NEG) Urine Nitrite Negative (NEG) Urine Bilirubin Negative (NEG) Urine Urobilinogen Dipstick 0.2 mg/dL (0.2 mg/dL) Urine Leukocyte Esterase Moderate (NEG) Urine RBC 6-10 /HPF (0-2) Urine WBC 5-10 /HPF (0-4) Urine Squamous Epithelial Cells Few /LPF Urine Bacteria Few /HPF (0-FEW) Test 10/25/20 08:06 10/25/20 08:45 Glucose (Fingerstick) 177 mg/dL (70-99) White Blood Count 7.2 x10^3/uL (4.0-11.0) Red Blood Count 2.53 x10^6/uL (4.30-5.70) Hemoglobin 7.2 g/dL (13.0-17.5) Hematocrit 22.6 % (39.0-53.0) Mean Corpuscular Volume 90 fL (79-100) Mean Corpuscular Hemoglobin 29 pg (25-35) Mean Corpuscular Hemoglobin Concent 32 g/dL (31-37) Red Cell Distribution Width 15.1 % (11.5-14.5) Platelet Count 202 x10^3/uL (140-400) Neutrophils (%) (Auto) 75 % (31-73) Lymphocytes (%) (Auto) 15 % (24-48) Monocytes (%) (Auto) 7 % (0-9) Eosinophils (%) (Auto) 2 % (0-3) Basophils (%) (Auto) 1 % (0-3) Neutrophils # (Auto) 5.4 x10^3/uL (1.8-7.7) Lymphocytes # (Auto) 1.1 x10^3/uL (1.0-4.8) Monocytes # (Auto) 0.5 x10^3/uL (0.0-1.1) Eosinophils # (Auto) 0.1 x10^3/uL (0.0-0.7) Basophils # (Auto) 0.0 x10^3/uL (0.0-0.2) Sodium Level 136 mmol/L (136-145) Potassium Level 4.7 mmol/L (3.5-5.1) Chloride Level 101 mmol/L (98-107) Carbon Dioxide Level 25 mmol/L (21-32) Anion Gap 10 (6-14) Blood Urea Nitrogen 66 mg/dL (8-26) Creatinine 3.7 mg/dL (0.7-1.3) Estimated GFR (Cockcroft-Gault) 20.7 Glucose Level 178 mg/dL (70-99) Calcium Level 9.3 mg/dL (8.5-10.1) Results All relevant outside records, renal labs, imaging studies, telemetry/EKG's were reviewed. Justicifation of Admission Dx: Justifications for Admission: Justification of Admission Dx: N/A NATASHA MCDONALD MD Oct 25, 2020 10:33
[2020-10-25 11:00] VITALS: BP 144/65
[2020-10-25] MEDS ORDERED: IV NORMAL SALINE 1000ML BAG 1,000 ML IV ONE (11:15)
--- NOTE | 2020-10-25 11:28 | PDOC ---
[employer] PROGRESS NOTE Date of Service DOS: DATE: 10/25/20 TIME: 11:14 Chief Complaint Chief Complaint Acute respiratory failure with hypoxia Acute diastolic heart failure (CHF) aortic stenosis Elevated brain natriuretic peptide (BNP) level Pulmonary HTN CKD Normocytic anemia Hypertensive urgency Right breast mass Malnutrition normocytic anemia History of Present Illness History of Present Illness 10/25 - Pt is in moderate distress, states he is profoundly weak and is eager to get to the bottom on this problem. Discussed his continue compliance with cpap machine. Mr Moran is a 54yo M w/ PMHx Diabetes-Type II, High Cholesterol, Hypert ension, Pancreatitis, CKD 4, presents to the ER with complaint of worsening shortness of breath of the past 3 days. He reports associated intermittent chest pain and bilateral lower extremity swelling. States his symptoms are worse with exertion. Upon arrival in the ED his BNP was 3029. He was placed on BiPAP given IV morphine with improvement of symptoms. States he has not taken any of his home medications today. He does report a tender lump in his right breast for the past 3 weeks, reports a family history of breast cancer. He denies any fever, sick contacts, or known COVID-19 exposure. Will admit patient for further medical management. 10/21: Patient seen and evaluated. Improved on BiPAP overnight. Afebrile, denies chest pain. Blood pressure better controlled. CBG 323 this morning. Of note patient did order two trays of nondiabetic meals, and had fried chicken delivere d to his room last night. Discussed importance of cardiac and diabetic diet for his heart health. Continue to diurese with Lasix. Echocardiogram and ultrasound right breast pending. If appropriately diuresed and no concerning findings on right breast ultrasound, Vitals/I&O Vitals/I&O: Vital Signs Date Time Temp Pulse Resp B/P (MAP) Pulse Ox O2 Delivery O2 Flow Rate FiO2 10/25/20 09:23 97 Nasal Cannula 1.0 10/25/20 08:49 69 140/65 10/25/20 07:00 97.9 20 97.9 I & O 10/24/20 10/24/20 10/25/20 15:00 23:00 07:00 Intake Total 950 ml 500 ml Output Total 900 ml 200 ml 400 ml Balance -900 ml 750 ml 100 ml Physical Exam Physical Exam: Distant S1 and S2 noted on exam. Moderate expiratory wheezes noted on lung exam. Template Worker strength is symmetrical and 4/4. General: Alert, Oriented X3, Cooperative, No acute distress, mild distress Heart: Regular rate, No murmurs, Other Lungs: Wheezing, Crackles Abdomen: Soft Extremities: No cyanosis, Other Skin: No breakdown, No significant lesion Labs Labs: Laboratory Tests Test 10/24/20 11:45 10/24/20 16:00 10/24/20 17:16 10/24/20 21:39 Glucose (Fingerstick) 239 mg/dL (70-99) 172 mg/dL (70-99) 157 mg/dL (70-99) Urine Collection Type Unknown Urine Color Yellow Urine Clarity Clear Urine pH 5.0 (<5.0-8.0) Urine Specific [place] 1.020 (1.000-1.030) Urine Protein 100 mg/dL (NEG-TRACE) Urine Glucose (UA) Negative mg/dL (NEG) Urine Ketones (Stick) Negative mg/dL (NEG) Urine Blood Trace (NEG) Urine Nitrite Negative (NEG) Urine Bilirubin Negative (NEG) Urine Urobilinogen Dipstick 0.2 mg/dL (0.2 mg/dL) Urine Leukocyte Esterase Moderate (NEG) Urine RBC 6-10 /HPF (0-2) Urine WBC 5-10 /HPF (0-4) Urine Squamous Epithelial Cells Few /LPF Urine Bacteria Few /HPF (0-FEW) Test 10/25/20 08:06 10/25/20 08:45 Glucose (Fingerstick) 177 mg/dL (70-99) White Blood Count 7.2 x10^3/uL (4.0-11.0) Red Blood Count 2.53 x10^6/uL (4.30-5.70) Hemoglobin 7.2 g/dL (13.0-17.5) Hematocrit 22.6 % (39.0-53.0) Mean Corpuscular Volume 90 fL (79-100) Mean Corpuscular Hemoglobin 29 pg (25-35) Mean Corpuscular Hemoglobin Concent 32 g/dL (31-37) Red Cell Distribution Width 15.1 % (11.5-14.5) Platelet Count 202 x10^3/uL (140-400) Neutrophils (%) (Auto) 75 % (31-73) Lymphocytes (%) (Auto) 15 % (24-48) Monocytes (%) (Auto) 7 % (0-9) Eosinophils (%) (Auto) 2 % (0-3) Basophils (%) (Auto) 1 % (0-3) Neutrophils # (Auto) 5.4 x10^3/uL (1.8-7.7) Lymphocytes # (Auto) 1.1 x10^3/uL (1.0-4.8) Monocytes # (Auto) 0.5 x10^3/uL (0.0-1.1) Eosinophils # (Auto) 0.1 x10^3/uL (0.0-0.7) Basophils # (Auto) 0.0 x10^3/uL (0.0-0.2) Sodium Level 136 mmol/L (136-145) Potassium Level 4.7 mmol/L (3.5-5.1) Chloride Level 101 mmol/L (98-107) Carbon Dioxide Level 25 mmol/L (21-32) Anion Gap 10 (6-14) Blood Urea Nitrogen 66 mg/dL (8-26) Creatinine 3.7 mg/dL (0.7-1.3) Estimated GFR (Cockcroft-Gault) 20.7 Glucose Level 178 mg/dL (70-99) Calcium Level 9.3 mg/dL (8.5-10.1) Review of Systems Review of Systems: Pt notes no new skin lesions, denies change in weight. Assessment and Plan Assessmemt and Plan CHF exacerbation, urinary retention * Continued cardiac monitoring * Diuretics held (contra by 3.5 creat) * Continued O2 therapy- 95-97% last 24hrs * Appreciate nephrology input, * Trend labs - GFR 24%, creatinine tending upwards (2.2 on 10/20, 3.7 on 10/25) * Await UTI cultures, consider preliminary antibiotics HTN (hypertension) * Cardiology input * Full code * DVT prophylaxis * Continue home meds * Discussed with case management Fatigue * Neuro consult * Continued Cpap use at home Discharge to [facility] is contingent on PT/OT and insurance approval. 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 Comment Review of Relevant I have reviewed the following items karissa (where applicable) has been applied. Medications: Current Medications Medications (Trade) Dose Ordered Sig/Kiera Route PRN Reason Start Time Stop Time Status Last Admin Dose Admin Polysaccharide Iron Complex (Niferex 150) 150 mg DAILY PO 10/24/20 14:00 10/25/20 08:48 Justifications for Admission Other Justification Acute respiratory failure with hypoxia, acute diastolic CHF exacerbation, right breast mass CASTLE,NIAL K III DO Oct 25, 2020 11:28 am
--- NOTE | 2020-10-25 11:48 | NUR ---
SS following up with discharge planning. SS reviewed pt chart and discussed with pt RN. Pt is currently requiring oxygen at one liter nasal canula. COVID19 negative. MARQUISE. Nephrology following. Per Nephrology, if no improvement dialysis may need to be initiated. PT/OT recommended acute rehabilitation. [facility], ; fax [phone], accepted pending insurance authorization. SS will continue to follow for discharge planning.
[2020-10-25] MEDS: ACETAMINOPHEN 325 MG TABLET. PO PRN (14:19)
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
[2020-10-25 15:00] VITALS: BP 131/60
[2020-10-25] MEDS: DULoxetine HCL 30 MG CAPSULE.DR PO SCH (15:32)
[2020-10-25] MEDS: IV NORMAL SALINE 1000ML BAG 1,000 ML IV SCH (18:34)
--- NOTE | 2020-10-25 19:17 | RAD ---
Chest AP portable at 1836: Reason for examination: IJ placement. Comparison is made to previous study dated 10/20/2020. IJ catheter is present on the right with the tip at the superior vena cava right atrial junction carol on. Electronic device is seen over the upper left thorax. Heart size appears to be enlarged but uncha nged. Mediastinum is unchanged. Lung laurent show mild prominence of the pulmonary vasculature but no definite infiltrates, pleural effusions or pneumothorax. No acute bony abnormalities are seen. IMPRESSION: Right venous catheter in place with the tip at the superior vena cava/right atrial junction region wi th no pneumothorax evident. Cardiomegaly with mild prominence of the pulmonary vasculature but no infiltrates or pleural effusion s evident. Electronically signed by: Shanel Craven MD (10/25/2020 7:15 PM) [id number]
[2020-10-25 19:55] VITALS: BP 135/55
[2020-10-25] MEDS: PATCH REMOVAL. MC SCH (21:00)
[2020-10-25] MEDS: INSULIN GLARGINE SYRINGE. SQ SCH (22:13)
[2020-10-25 22:48] VITALS: BP 135/47
[2020-10-26 02:56] VITALS: BP 120/57
[2020-10-26] MEDS: HEPARIN for SUB-Q USE 5,000 UNIT/ML VIAL. SQ SCH ×3 (06:28→21:11)
[2020-10-26 07:00] VITALS: BP 162/58
[2020-10-26] MEDS: INSULIN LISPRO 300 UNITS/3 ML VIAL. SQ SCH ×6 (08:00→17:54)
[2020-10-26] MEDS: LIDOCAINE (700MG/PATCH) PATCH. TD SCH (08:42)
[2020-10-26] MEDS: CARVEDILOL 12.5 MG TABLET. PO SCH ×2 (08:42→17:44)
[2020-10-26] MEDS: ASPIRIN CHEWABLE 81 MG TABLET. PO SCH (08:43)
[2020-10-26] MEDS: ISOSORBIDE DINITRATE 10 MG TABLET. PO SCH ×3 (08:43→20:57)
[2020-10-26] MEDS: PANTOPRAZOLE 40 MG TABLET.DR. PO SCH ×2 (08:43→17:42)
[2020-10-26] MEDS: DULoxetine HCL 30 MG CAPSULE.DR PO SCH (08:43)
[2020-10-26] MEDS: GABAPENTIN 300 MG CAPSULE. PO SCH ×3 (08:43→20:59)
[2020-10-26] MEDS: TAMSULOSIN 0.4 MG CAP.ER.24H. PO SCH (08:44)
[2020-10-26] MEDS: CLOPIDOGREL BISULFATE 75 MG TABLET PO SCH (08:44)
[2020-10-26] MEDS: IRON POLYSACCHARIDE COMPLEX 150 MG CAPSULE PO SCH (08:44)
--- NOTE | 2020-10-26 08:45 | PDOC ---
PROGRESS NOTES Date of Service: DATE: 10/26/20 TIME: 08:45 Chief Complaint Chief Complaint impression Acute respiratory failure with hypoxia Acute diastolic heart failure (CHF) aortic stenosis Elevated brain natriuretic peptide (BNP) level Pulmonary HTN CKD Normocytic anemia Hypertensive urgency Right breast mass Malnutrition normocytic anemia CKD stage 3 B- Seen by [employer] renal . Cr was at his baseline at Presentation to [facility] Peripheral neuropathy, most likely from diabetes exacerbated by acute metabolic issues including anemia and renal failure. Consider acute inflammatory demyelinating neuropathy, 38 MIN pt exam, chart review, > 50% of time spent with exam, chart review, pt care coordination History of Present Illness History of Present Illness 2-10 Peripheral neuropathy, most likely from diabetes rule out other causes, exacerbated by acute metabolic issues including anemia and renal failure. Consider acute inflammatory demyelinating neuropathy, D/W RN 10/25 - Pt is in moderate distress, states he is profoundly weak and is eager to get to the bottom on this problem. Discussed his continue compliance with cpap machine. Mr Moran is a 54yo M w/ PMHx Diabetes-Type II, High Cholesterol, Hypertension, Pancreatitis, CKD 4, presents to the ER with complaint of worsening shortness of breath of the past 3 days. He reports associated intermittent chest pain and bilateral lower extremity swelling. States his symptoms are worse with exertion. Upon arrival in the ED his BNP was 3029. He was placed on BiPAP given IV morphine with improvement of symptoms. States he has not taken any of his home medications today. He does report a tender lump in his right breast for the past 3 weeks, reports a family history of breast cancer. He denies any fever, sick contacts, or known COVID-19 exposure. Will admit patient for further medical management. 10/21: Patient seen and evaluated. Improved on BiPAP overnight. Afebrile, denies chest pain. Blood pressure better controlled. CBG 323 this morning. Of note patient did order two trays of nondiabetic meals, and had fried chicken delivered to his room last night. Discussed importance of cardiac and diabetic diet for his heart health. Continue to diurese with Lasix. Echocardiogram and ultrasound right breast pending. If appropriately diuresed and no concerning findings on right breast ultrasound, Vitals Vitals Vital Signs Date Time Temp Pulse Resp B/P (MAP) Pulse Ox O2 Delivery O2 Flow Rate FiO2 10/26/20 07:00 98.1 72 20 162/58 (92) 94 Nasal Cannula 2.0 98.1 Physical Exam Physical Exam Distant S1 and S2 noted on exam. Moderate expiratory wheezes noted on lung exam. 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 General: Alert, Oriented X3, Cooperative, No acute distress, mild distress Heart: Regular rate, No murmurs, Other Lungs: Wheezing, Crackles Abdomen: Soft Extremities: No cyanosis, Other Skin: No breakdown, No significant lesion Labs LABS Laboratory Tests Test 10/25/20 12:13 10/25/20 18:30 10/25/20 20:15 10/26/20 08:06 Glucose (Fingerstick) 186 mg/dL (70-99) 138 mg/dL (70-99) 143 mg/dL (70-99) 194 mg/dL (70-99) Assessment and Plan Assessmemt and Plan Problems Medical Problems: (1) Chest pain Status: Acute (2) CHF exacerbation Status: Acute (3) HTN (hypertension) Status: Acute (4) Person under investigation for COVID-19 Status: Acute Comment Review of Relevant I have reviewed the following items karissa (where applicable) has been applied. Labs Laboratory Tests Test 10/24/20 08:55 10/24/20 11:45 10/24/20 16:00 10/24/20 17:16 White Blood Count 8.8 x10^3/uL (4.0-11.0) Red Blood Count 2.46 x10^6/uL (4.30-5.70) Hemoglobin 7.4 g/dL (13.0-17.5) Hematocrit 22.2 % (39.0-53.0) Mean Corpuscular Volume 90 fL (79-100) Mean Corpuscular Hemoglobin 30 pg (25-35) Mean Corpuscular Hemoglobin Concent 34 g/dL (31-37) Red Cell Distribution Width 14.8 % (11.5-14.5) Platelet Count 221 x10^3/uL (140-400) Neutrophils (%) (Auto) 73 % (31-73) Lymphocytes (%) (Auto) 16 % (24-48) Monocytes (%) (Auto) 10 % (0-9) Eosinophils (%) (Auto) 1 % (0-3) Basophils (%) (Auto) 1 % (0-3) Neutrophils # (Auto) 6.4 x10^3/uL (1.8-7.7) Lymphocytes # (Auto) 1.4 x10^3/uL (1.0-4.8) Monocytes # (Auto) 0.8 x10^3/uL (0.0-1.1) Eosinophils # (Auto) 0.1 x10^3/uL (0.0-0.7) Basophils # (Auto) 0.1 x10^3/uL (0.0-0.2) Sodium Level 136 mmol/L (136-145) Potassium Level 5.0 mmol/L (3.5-5.1) Chloride Level 103 mmol/L (98-107) Carbon Dioxide Level 24 mmol/L (21-32) Anion Gap 9 (6-14) Blood Urea Nitrogen 55 mg/dL (8-26) Creatinine 3.5 mg/dL (0.7-1.3) Estimated GFR (Cockcroft-Gault) 22.0 BUN/Creatinine Ratio 16 (6-20) Glucose Level 229 mg/dL (70-99) Calcium Level 8.8 mg/dL (8.5-10.1) Iron Level 22 ug/dL (65-175) Total Iron Binding Capacity 247 ug/dL (250-450) Iron Saturation 9 % (15-34) Ferritin 167 ng/mL (26-388) Total Bilirubin 0.6 mg/dL (0.2-1.0) Aspartate Amino Transf (AST/SGOT) 68 U/L (15-37) Alanine Aminotransferase (ALT/SGPT) 27 U/L (16-63) Alkaline Phosphatase 49 U/L (46-116) Total Protein 6.7 g/dL (6.4-8.2) Albumin 2.8 g/dL (3.4-5.0) Albumin/Globulin Ratio 0.7 (1.0-1.7) Vitamin B12 Level 378 pg/mL (247-911) Glucose (Fingerstick) 239 mg/dL (70-99) 172 mg/dL (70-99) Urine Collection Type Unknown Urine Color Yellow Urine Clarity Clear Urine pH 5.0 (<5.0-8.0) Urine Specific [place] 1.020 (1.000-1.030) Urine Protein 100 mg/dL (NEG-TRACE) Urine Glucose (UA) Negative mg/dL (NEG) Urine Ketones (Stick) Negative mg/dL (NEG) Urine Blood Trace (NEG) Urine Nitrite Negative (NEG) Urine Bilirubin Negative (NEG) Urine Urobilinogen Dipstick 0.2 mg/dL (0.2 mg/dL) Urine Leukocyte Esterase Moderate (NEG) Urine RBC 6-10 /HPF (0-2) Urine WBC 5-10 /HPF (0-4) Urine Squamous Epithelial Cells Few /LPF Urine Bacteria Few /HPF (0-FEW) Test 10/24/20 21:39 10/25/20 08:06 10/25/20 08:45 10/25/20 12:13 Glucose (Fingerstick) 157 mg/dL (70-99) 177 mg/dL (70-99) 186 mg/dL (70-99) White Blood Count 7.2 x10^3/uL (4.0-11.0) Red Blood Count 2.53 x10^6/uL (4.30-5.70) Hemoglobin 7.2 g/dL (13.0-17.5) Hematocrit 22.6 % (39.0-53.0) Mean Corpuscular Volume 90 fL (79-100) Mean Corpuscular Hemoglobin 29 pg (25-35) Mean Corpuscular Hemoglobin Concent 32 g/dL (31-37) Red Cell Distribution Width 15.1 % (11.5-14.5) Platelet Count 202 x10^3/uL (140-400) Neutrophils (%) (Auto) 75 % (31-73) Lymphocytes (%) (Auto) 15 % (24-48) Monocytes (%) (Auto) 7 % (0-9) Eosinophils (%) (Auto) 2 % (0-3) Basophils (%) (Auto) 1 % (0-3) Neutrophils # (Auto) 5.4 x10^3/uL (1.8-7.7) Lymphocytes # (Auto) 1.1 x10^3/uL (1.0-4.8) Monocytes # (Auto) 0.5 x10^3/uL (0.0-1.1) Eosinophils # (Auto) 0.1 x10^3/uL (0.0-0.7) Basophils # (Auto) 0.0 x10^3/uL (0.0-0.2) Sodium Level 136 mmol/L (136-145) Potassium Level 4.7 mmol/L (3.5-5.1) Chloride Level 101 mmol/L (98-107) Carbon Dioxide Level 25 mmol/L (21-32) Anion Gap 10 (6-14) Blood Urea Nitrogen 66 mg/dL (8-26) Creatinine 3.7 mg/dL (0.7-1.3) Estimated GFR (Cockcroft-Gault) 20.7 Glucose Level 178 mg/dL (70-99) Calcium Level 9.3 mg/dL (8.5-10.1) Creatine Kinase 3270 U/L (39-308) Test 10/25/20 18:30 10/25/20 20:15 10/26/20 08:06 Glucose (Fingerstick) 138 mg/dL (70-99) 143 mg/dL (70-99) 194 mg/dL (70-99) Laboratory Tests Test 10/25/20 12:13 10/25/20 18:30 10/25/20 20:15 10/26/20 08:06 Glucose (Fingerstick) 186 mg/dL (70-99) 138 mg/dL (70-99) 143 mg/dL (70-99) 194 mg/dL (70-99) Medications Current Medications Nitroglycerin (Nitro-Bid Oint) 1 inch 1X ONCE TP Last administered on 10/20/20at 13:22; Start 10/20/20 at 13:15; Stop 10/20/20 at 13:16; Status DC Morphine Sulfate (Morphine Sulfate) 4 mg 1X ONCE IV Last administered on 10/20/20at 13:23; Start 10/20/20 at 13:15; Stop 10/20/20 at 13:16; Status DC Furosemide (Lasix) 80 mg 1X ONCE IVP Last administered on 10/20/20at 16:25; Start 10/20/20 at 15:45; Stop 10/20/20 at 15:46; Status DC Hydralazine HCl (Apresoline Inj) 10 mg PRN Q20MIN PRN IVP ELEVATED BP, SEE COMMENTS Last administered on 10/20/20at 16:28; Start 10/20/20 at 15:30 Furosemide (Lasix) 80 mg [id number] PO Last administered on 10/23/20at 08:11; Start 10/21/20 at 09:00; Stop 10/24/20 at 15:14; Status DC Insulin Human Lispro (HumaLOG) 0-9 UNITS TIDWMEALS SQ Last administered on 10/23/20at 12:12; Start 10/20/20 at 17:00 Dextrose (Dextrose 50%-Water Syringe) 12.5 gm PRN Q15MIN PRN IV SEE COMMENTS; Start 10/20/20 at 15:45 Ondansetron HCl (Zofran) 4 mg PRN Q6HRS PRN IVP NAUSEA/VOMITING Last administered on 10/22/20at 11:57; Start 10/20/20 at 16:15 Al Hydroxide/Mg Hydroxide (Mylanta Plus Xs) 30 ml PRN Q3HRS PRN PO HEARTBURN / GAS; Start 10/20/20 at 16:15 Calcium Carbonate/ Glycine (Tums) 500 mg PRN Q3HRS PRN PO UPSET STOMACH; Start 10/20/20 at 16:15 Zolpidem Tartrate (Ambien) 5 mg PRN QHS PRN PO INSOMNIA, MAY REPEAT IN 1HR Last administered on 10/20/20at 21:39; Start 10/20/20 at 16:15 Acetaminophen (Tylenol) 650 mg PRN Q6HRS PRN PO Headaches, Temp > 101.5F Last administered on 10/25/20at 14:19; Start 10/20/20 at 16:15 Magnesium Hydroxide (Milk Of Magnesia) 2,400 mg PRN Q12HR PRN PO CONSTIPATION Last administered on 10/22/20at 06:11; Start 10/20/20 at 16:15 Bisacodyl (Dulcolax Supp) 10 mg PRN DAILY PRN SD CONSTIPATION; Start 10/20/20 at 16:15 Heparin Sodium (Porcine) (Heparin Sodium) 5,000 unit Q8HRS SQ Last administered on 10/26/20at 06:28; Start 10/20/20 at 16:30 Morphine Sulfate (Morphine Sulfate) 4 mg PRN Q2HR PRN IV MODERATE TO SEVERE PAIN Last administered on 10/23/20at 12:06; Start 10/20/20 at 16:30 Tramadol HCl (Ultram) 50 mg PRN Q6HRS PRN PO MILD TO MODERATE PAIN Last administered on 10/24/20 08:25; Start 10/20/20 at 16:30 Amlodipine Besylate (Norvasc) 10 mg DAILY PO Last administered on 10/25/20 08:48; Start 10/21/20 at 09:00 Aspirin (Aspirin Chewable) 81 mg [id number] PO Last administered on 10/25/20 08:47; Start 10/21/20 at 08:00 Clopidogrel Bisulfate (Plavix) 75 mg DAILY PO Last administered on 10/25/20 08:47; Start 10/21/20 at 09:00 Furosemide (Lasix) 80 mg BID92 PO Last administered on 10/21/20 08:54; Start 10/20/20 at 17:30; Stop 10/21/20 at 09:37; Status DC Pantoprazole Sodium (Protonix) 40 mg BIDAC PO Last administered on 10/25/20 15:32; Start 10/20/20 at 17:30 Senna/Docusate Sodium (Senna Plus) 2 tab PRN QEVNG PRN PO CONSTIPATION; Start 10/20/20 at 17:30 Spironolactone (Aldactone) 25 mg DAILY PO Last administered on 10/21/20 08:52; Start 10/21/20 at 09:00; Stop 10/21/20 at 14:06; Status DC Tamsulosin HCl (Flomax) 0.4 mg DAILY PO Last administered on 10/25/20 08:48; Start 10/21/20 at 09:00 Carvedilol (Coreg) 25 mg BIDWMEALS PO Last administered on 10/25/20 22:09; Start 10/20/20 at 17:30 Gabapentin (Neurontin) 300 mg TID PO Last administered on 10/25/20 22:09; Start 10/20/20 at 21:00 Hydralazine HCl (Apresoline) 100 mg TID PO Last administered on 10/25/20 08:48; Start 10/20/20 at 21:00 Insulin Human Lispro (HumaLOG) 30 units TIDWMEALS SQ Last administered on 10/25/20 18:40; Start 10/21/20 at 08:00 Insulin Glargine (Lantus Syringe) 60 unit QHS SQ Last administered on 10/22/20 21:17; Start 10/20/20 at 21:00; Stop 10/23/20 at 13:07; Status DC Isosorbide Dinitrate (Isordil) 5 mg TID PO Last administered on 10/25/20at 22:09; Start 10/20/20 at 21:00 Atorvastatin Calcium (Lipitor) 80 mg QHS PO Last administered on 10/24/20at 2 1:42; Start 10/20/20 at 21:00; Stop 10/25/20 at 13:42; Status DC Lorazepam (Ativan Inj) 1 mg PRN Q4HRS PRN IVP ANXIETY / AGITATION Last administered on 10/22/20 11:57; Start 10/20/20 at 17:30 Insulin Glargine (Lantus Syringe) 70 unit QHS SQ Last administered on 10/25/20at 22:13; Start 10/23/20 at 21:00 Lidocaine (Lidoderm) 2 patch DAILY TD Last administered on 10/25/20at 08:47; Start 10/24/20 at 09:00 Miscellaneous (Lidoderm Patch Removal) 1 ea QHS MC ; Start 10/24/20 at 21:00 Polysaccharide Iron Complex (Niferex 150) 150 mg DAILY PO Last administered on 10/25/20at 08:48; Start 10/24/20 at 14:00 Sodium Chloride 1,000 ml @ 75 mls/hr [id number] ONCE IV ; Start 10/25/20 at 11:15; Stop 10/25/20 at 13:42; Status DC Sodium Chloride 1,000 ml @ 75 mls/hr [id number] IV Last administered on 10/25/20at 18:34; Start 10/25/20 at 14:00 Duloxetine HCl (Cymbalta) 30 mg DAILY PO Last administered on 10/25/20at 15:32; Start 10/25/20 at 15:00 Active Scripts Active Flomax (Tamsulosin Hcl) 0.4 Mg Cap.er.24h 0.4 Mg PO DAILY Children's Aspirin (Aspirin) 81 Mg Tab.chew 81 Mg PO DAILYWBKFT Reported Senna-Docusate Sodium Tablet (Sennosides/Docusate Sodium) 1 Each Tablet 2 Tab PO PRN QEVNG PRN 5 Days Spironolactone 25 Mg Tablet 25 Mg PO DAILY Vitamin D2 (Ergocalciferol (Vitamin D2)) 1,250 Mcg Capsule 1,250 Mcg PO WEEKLY Lasix (Furosemide) 80 Mg Tablet 80 Mg PO BID Clopidogrel (Clopidogrel Bisulfate) 75 Mg Tablet 75 Mg PO DAILY Carvedilol 25 Mg Tablet 25 Mg PO BIDWMEALS Isosorbide Dinitrate 40 Mg Tablet.er 5 Mg PO TID Gabapentin 600 Mg Tablet 300 Mg PO TID Protonix (Pantoprazole Sodium) 40 Mg Tablet.dr 40 Mg PO BID Hydralazine Hcl 100 Mg Tablet 100 Mg PO TID Amlodipine Besylate 10 Mg Tablet 10 Mg PO DAILY Crestor (Rosuvastatin Calcium) 20 Mg Tablet 20 Mg PO QHS Levemir Flexpen (Insulin Detemir) 100 Unit/1 Ml Insuln.pen 60 Unit SQ HS Novolog Flexpen (Insulin Aspart) 100 Unit/1 Ml Insuln.pen 30 Unit SQ TIDAC Vitals/I & O Vital Sign - Last 24 Hours 10/25/20 10/25/20 10/25/20 10/25/20 08:47 08:48 08:48 08:49 Pulse 69 69 69 69 B/P (MAP) 140/65 140/65 140/65 140/65 10/25/20 10/25/20 10/25/20 10/25/20 09:23 11:00 14:00 14:20 Temp 98.2 98.2 Pulse 74 75 70 Resp 20 B/P (MAP) 144/65 (91) 131/60 131/60 Pulse Ox 97 98 O2 Delivery Nasal Cannula Nasal Cannula O2 Flow Rate 1.0 1.0 10/25/20 10/25/20 10/25/20 10/25/20 15:00 19:55 20:02 21:00 Temp 98.3 98.1 98.3 98.1 Pulse 75 78 73 Resp 20 19 B/P (MAP) 131/60 (83) 135/55 (81) 135/47 Pulse Ox 100 96 O2 Delivery Nasal Cannula Nasal Cannula Nasal Cannula O2 Flow Rate 2.0 2.0 2.0 10/25/20 10/25/20 10/25/20 10/26/20 22:09 22:09 22:48 02:56 Temp 97.2 98.4 97.2 98.4 Pulse 74 75 73 68 Resp 18 21 B/P (MAP) 135/47 135/47 135/47 (76) 120/57 (78) Pulse Ox 92 100 O2 Delivery Nasal Cannula Nasal Cannula O2 Flow Rate 2.0 2.0 10/26/20 07:00 Temp 98.1 98.1 Pulse 72 Resp 20 B/P (MAP) 162/58 (92) Pulse Ox 94 O2 Delivery Nasal Cannula O2 Flow Rate 2.0 Intake and Output 10/25/20 10/25/20 10/26/20 14:59 22:59 06:59 Intake Total 515 ml 850 ml 100 ml Output Total 450 ml Balance 515 ml 850 ml -350 ml Justicifation of Admission Dx: Justifications for Admission: Justification of Admission Dx: N/A CHANELL ALBERTS MD Oct 26, 2020 08:45
[2020-10-26] MEDS: IV NORMAL SALINE 1000ML BAG 1,000 ML IV SCH ×2 (08:52→21:04)
--- NOTE | 2020-10-26 08:53 | PDOC ---
PROGRESS NOTES Date of Service DATE: 10/26/20 TIME: 08:51 Assessment Problems Medical Problems: (1) Chest pain Status: Acute (2) CHF exacerbation Status: Acute (3) HTN (hypertension) Status: Acute (4) Person under investigation for COVID-19 Status: Acute Peripheral neuropathy, most likely from diabetes (hemoglobin A1c is 6.9), rule out other causes, exacerbated by acute metabolic issues including anemia and renal failure. Consider acute inflammatory demyelinating neuropathy, but this is unlikely, patient started getting weak at least a year ago. I find no evidence of central nervous system disease including myelopathy. Lab work so far is negative Substance abuse, cocaine Plan Await additional laboratory studies Hold statin (already done) Rehabilitation modalities Continue gabapentin, watch for oversedation with renal failure. Adding on duloxetine. Consider EMG studies Consider lumbar puncture. Subjective Complains the room feels cold Objective Vital Signs Date Time Temp Pulse Resp B/P (MAP) Pulse Ox O2 Delivery O2 Flow Rate FiO2 10/26/20 07:00 98.1 72 20 162/58 (92) 94 Nasal Cannula 2.0 98.1 Intake and Output 10/26/20 07:00 Intake Total 1465 ml Output Total 450 ml Balance 1015 ml Intake Oral 1115 ml IV Total 350 ml Output Urine Total 450 ml # Bowel Movements 1 PHYSICAL EXAM Alert. Oriented to time, place and person. PERRL. EOMI. CN: no focal findings. Muscle tone: normal. Muscle strength: 4/5 DTR: 0+ Plantar reflex: Flexor Gait: not examined in bed. Sensory exam: Stocking loss. No cerebellar signs elicited. Review of Relevant I have reviewed the following items karissa (where applicable) has been applied. Labs Laboratory Tests Test 10/24/20 08:55 10/24/20 11:45 10/24/20 16:00 10/24/20 17:16 White Blood Count 8.8 x10^3/uL (4.0-11.0) Red Blood Count 2.46 x10^6/uL (4.30-5.70) Hemoglobin 7.4 g/dL (13.0-17.5) Hematocrit 22.2 % (39.0-53.0) Mean Corpuscular Volume 90 fL (79-100) Mean Corpuscular Hemoglobin 30 pg (25-35) Mean Corpuscular Hemoglobin Concent 34 g/dL (31-37) Red Cell Distribution Width 14.8 % (11.5-14.5) Platelet Count 221 x10^3/uL (140-400) Neutrophils (%) (Auto) 73 % (31-73) Lymphocytes (%) (Auto) 16 % (24-48) Monocytes (%) (Auto) 10 % (0-9) Eosinophils (%) (Auto) 1 % (0-3) Basophils (%) (Auto) 1 % (0-3) Neutrophils # (Auto) 6.4 x10^3/uL (1.8-7.7) Lymphocytes # (Auto) 1.4 x10^3/uL (1.0-4.8) Monocytes # (Auto) 0.8 x10^3/uL (0.0-1.1) Eosinophils # (Auto) 0.1 x10^3/uL (0.0-0.7) Basophils # (Auto) 0.1 x10^3/uL (0.0-0.2) Sodium Level 136 mmol/L (136-145) Potassium Level 5.0 mmol/L (3.5-5.1) Chloride Level 103 mmol/L (98-107) Carbon Dioxide Level 24 mmol/L (21-32) Anion Gap 9 (6-14) Blood Urea Nitrogen 55 mg/dL (8-26) Creatinine 3.5 mg/dL (0.7-1.3) Estimated GFR (Cockcroft-Gault) 22.0 BUN/Creatinine Ratio 16 (6-20) Glucose Level 229 mg/dL (70-99) Calcium Level 8.8 mg/dL (8.5-10.1) Iron Level 22 ug/dL (65-175) Total Iron Binding Capacity 247 ug/dL (250-450) Iron Saturation 9 % (15-34) Ferritin 167 ng/mL (26-388) Total Bilirubin 0.6 mg/dL (0.2-1.0) Aspartate Amino Transf (AST/SGOT) 68 U/L (15-37) Alanine Aminotransferase (ALT/SGPT) 27 U/L (16-63) Alkaline Phosphatase 49 U/L (46-116) Total Protein 6.7 g/dL (6.4-8.2) Albumin 2.8 g/dL (3.4-5.0) Albumin/Globulin Ratio 0.7 (1.0-1.7) Vitamin B12 Level 378 pg/mL (247-911) Glucose (Fingerstick) 239 mg/dL (70-99) 172 mg/dL (70-99) Urine Collection Type Unknown Urine Color Yellow Urine Clarity Clear Urine pH 5.0 (<5.0-8.0) Urine Specific [place] 1.020 (1.000-1.030) Urine Protein 100 mg/dL (NEG-TRACE) Urine Glucose (UA) Negative mg/dL (NEG) Urine Ketones (Stick) Negative mg/dL (NEG) Urine Blood Trace (NEG) Urine Nitrite Negative (NEG) Urine Bilirubin Negative (NEG) Urine Urobilinogen Dipstick 0.2 mg/dL (0.2 mg/dL) Urine Leukocyte Esterase Moderate (NEG) Urine RBC 6-10 /HPF (0-2) Urine WBC 5-10 /HPF (0-4) Urine Squamous Epithelial Cells Few /LPF Urine Bacteria Few /HPF (0-FEW) Test 10/24/20 21:39 10/25/20 08:06 10/25/20 08:45 10/25/20 12:13 Glucose (Fingerstick) 157 mg/dL (70-99) 177 mg/dL (70-99) 186 mg/dL (70-99) White Blood Count 7.2 x10^3/uL (4.0-11.0) Red Blood Count 2.53 x10^6/uL (4.30-5.70) Hemoglobin 7.2 g/dL (13.0-17.5) Hematocrit 22.6 % (39.0-53.0) Mean Corpuscular Volume 90 fL (79-100) Mean Corpuscular Hemoglobin 29 pg (25-35) Mean Corpuscular Hemoglobin Concent 32 g/dL (31-37) Red Cell Distribution Width 15.1 % (11.5-14.5) Platelet Count 202 x10^3/uL (140-400) Neutrophils (%) (Auto) 75 % (31-73) Lymphocytes (%) (Auto) 15 % (24-48) Monocytes (%) (Auto) 7 % (0-9) Eosinophils (%) (Auto) 2 % (0-3) Basophils (%) (Auto) 1 % (0-3) Neutrophils # (Auto) 5.4 x10^3/uL (1.8-7.7) Lymphocytes # (Auto) 1.1 x10^3/uL (1.0-4.8) Monocytes # (Auto) 0.5 x10^3/uL (0.0-1.1) Eosinophils # (Auto) 0.1 x10^3/uL (0.0-0.7) Basophils # (Auto) 0.0 x10^3/uL (0.0-0.2) Sodium Level 136 mmol/L (136-145) Potassium Level 4.7 mmol/L (3.5-5.1) Chloride Level 101 mmol/L (98-107) Carbon Dioxide Level 25 mmol/L (21-32) Anion Gap 10 (6-14) Blood Urea Nitrogen 66 mg/dL (8-26) Creatinine 3.7 mg/dL (0.7-1.3) Estimated GFR (Cockcroft-Gault) 20.7 Glucose Level 178 mg/dL (70-99) Calcium Level 9.3 mg/dL (8.5-10.1) Creatine Kinase 3270 U/L (39-308) Test 10/25/20 18:30 10/25/20 20:15 10/26/20 08:06 Glucose (Fingerstick) 138 mg/dL (70-99) 143 mg/dL (70-99) 194 mg/dL (70-99) Laboratory Tests Test 10/25/20 12:13 10/25/20 18:30 10/25/20 20:15 10/26/20 08:06 Glucose (Fingerstick) 186 mg/dL (70-99) 138 mg/dL (70-99) 143 mg/dL (70-99) 194 mg/dL (70-99) Medications Current Medications Nitroglycerin (Nitro-Bid Oint) 1 inch 1X ONCE TP Last administered on 10/20/20at 13:22; Start 10/20/20 at 13:15; Stop 10/20/20 at 13:16; Status DC Morphine Sulfate (Morphine Sulfate) 4 mg 1X ONCE IV Last administered on 10/20/20at 13:23; Start 10/20/20 at 13:15; Stop 10/20/20 at 13:16; Status DC Furosemide (Lasix) 80 mg 1X ONCE IVP Last administered on 10/20/20 16:25; Start 10/20/20 at 15:45; Stop 10/20/20 at 15:46; Status DC Hydralazine HCl (Apresoline Inj) 10 mg PRN Q20MIN PRN IVP ELEVATED BP, SEE COMMENTS Last administered on 10/20/20 16:28; Start 10/20/20 at 15:30 Furosemide (Lasix) 80 mg [id number] PO Last administered on 10/23/20at 08:11; Start 10/21/20 at 09:00; Stop 10/24/20 at 15:14; Status DC Insulin Human Lispro (HumaLOG) 0-9 UNITS TIDWMEALS SQ Last administered on 10/23/20at 12:12; Start 10/20/20 at 17:00 Dextrose (Dextrose 50%-Water Syringe) 12.5 gm PRN Q15MIN PRN IV SEE COMMENTS; Start 10/20/20 at 15:45 Ondansetron HCl (Zofran) 4 mg PRN Q6HRS PRN IVP NAUSEA/VOMITING Last administered on 10/22/20at 11:57; Start 10/20/20 at 16:15 Al Hydroxide/Mg Hydroxide (Mylanta Plus Xs) 30 ml PRN Q3HRS PRN PO HEARTBURN / GAS; Start 10/20/20 at 16:15 Calcium Carbonate/ Glycine (Tums) 500 mg PRN Q3HRS PRN PO UPSET STOMACH; Start 10/20/20 at 16:15 Zolpidem Tartrate (Ambien) 5 mg PRN QHS PRN PO INSOMNIA, MAY REPEAT IN 1HR Last administered on 10/20/20at 21:39; Start 10/20/20 at 16:15 Acetaminophen (Tylenol) 650 mg PRN Q6HRS PRN PO Headaches, Temp > 101.5F Last administered on 10/25/20at 14:19; Start 10/20/20 at 16:15 Magnesium Hydroxide (Milk Of Magnesia) 2,400 mg PRN Q12HR PRN PO CONSTIPATION Last administered on 10/22/20at 06:11; Start 10/20/20 at 16:15 Bisacodyl (Dulcolax Supp) 10 mg PRN DAILY PRN AL CONSTIPATION; Start 10/20/20 at 16:15 Heparin Sodium (Porcine) (Heparin Sodium) 5,000 unit Q8HRS SQ Last administered on 10/26/20 06:28; Start 10/20/20 at 16:30 Morphine Sulfate (Morphine Sulfate) 4 mg PRN Q2HR PRN IV MODERATE TO SEVERE PAIN Last administered on 10/23/20 12:06; Start 10/20/20 at 16:30 Tramadol HCl (Ultram) 50 mg PRN Q6HRS PRN PO MILD TO MODERATE PAIN Last administered on 10/24/20 08:25; Start 10/20/20 at 16:30 Amlodipine Besylate (Norvasc) 10 mg DAILY PO Last administered on 10/25/20 08:48; Start 10/21/20 at 09:00 Aspirin (Aspirin Chewable) 81 mg [id number] PO Last administered on 10/25/20 08:47; Start 10/21/20 at 08:00 Clopidogrel Bisulfate (Plavix) 75 mg DAILY PO Last administered on 10/25/20 08:47; Start 10/21/20 at 09:00 Furosemide (Lasix) 80 mg BID92 PO Last administered on 10/21/20 08:54; Start 10/20/20 at 17:30; Stop 10/21/20 at 09:37; Status DC Pantoprazole Sodium (Protonix) 40 mg BIDAC PO Last administered on 10/25/20 15:32; Start 10/20/20 at 17:30 Senna/Docusate Sodium (Senna Plus) 2 tab PRN QEVNG PRN PO CONSTIPATION; Start 10/20/20 at 17:30 Spironolactone (Aldactone) 25 mg DAILY PO Last administered on 10/21/20 08:52; Start 10/21/20 at 09:00; Stop 10/21/20 at 14:06; Status DC Tamsulosin HCl (Flomax) 0.4 mg DAILY PO Last administered on 10/25/20 08:48; Start 10/21/20 at 09:00 Carvedilol (Coreg) 25 mg BIDWMEALS PO Last administered on 10/25/20 22:09; Start 10/20/20 at 17:30 Gabapentin (Neurontin) 300 mg TID PO Last administered on 2/9/21at 22:09; Start 10/20/20 at 21:00 Hydralazine HCl (Apresoline) 100 mg TID PO Last administered on 10/25/20 08:48; Start 10/20/20 at 21:00 Insulin Human Lispro (HumaLOG) 30 units TIDWMEALS SQ Last administered on 10/25/20 18:40; Start 10/21/20 at 08:00 Insulin Glargine (Lantus Syringe) 60 unit QHS SQ Last administered on 10/22/20 21:17; Start 10/20/20 at 21:00; Stop 10/23/20 at 13:07; Status DC Isosorbide Dinitrate (Isordil) 5 mg TID PO Last administered on 10/25/20 22:09; Start 10/20/20 at 21:00 Atorvastatin Calcium (Lipitor) 80 mg QHS PO Last administered on 10/24/20at 21:42; Start 10/20/20 at 21:00; Stop 10/25/20 at 13:42; Status DC Lorazepam (Ativan Inj) 1 mg PRN Q4HRS PRN IVP ANXIETY / AGITATION Last a dministered on 10/22/20 11:57; Start 10/20/20 at 17:30 Insulin Glargine (Lantus Syringe) 70 unit QHS SQ Last administered on 10/25/20at 22:13; Start 10/23/20 at 21:00 Lidocaine (Lidoderm) 2 patch DAILY TD Last administered on 10/25/20at 08:47; Start 10/24/20 at 09:00 Miscellaneous (Lidoderm Patch Removal) 1 ea QHS MC ; Start 10/24/20 at 21:00 Polysaccharide Iron Complex (Niferex 150) 150 mg DAILY PO Last administered on 10/25/20 08:48; Start 10/24/20 at 14:00 Sodium Chloride 1,000 ml @ 75 mls/hr [id number] ONCE IV ; Start 10/25/20 at 11:15; Stop 10/25/20 at 13:42; Status DC Sodium Chloride 1,000 ml @ 75 mls/hr [id number] IV Last administered on 10/25/20at 18:34; Start 10/25/20 at 14:00 Duloxetine HCl (Cymbalta) 30 mg DAILY PO Last administered on 10/25/20at 15:32; Start 10/25/20 at 15:00 Active Scripts Active Flomax (Tamsulosin Hcl) 0.4 Mg Cap.er.24h 0.4 Mg PO DAILY Children's Aspirin (Aspirin) 81 Mg Tab.chew 81 Mg PO DAILYWBKFT Reported Senna-Docusate Sodium Tablet (Sennosides/Docusate Sodium) 1 Each Tablet 2 Tab PO PRN QEVNG PRN 5 Days Spironolactone 25 Mg Tablet 25 Mg PO DAILY Vitamin D2 (Ergocalciferol (Vitamin D2)) 1,250 Mcg Capsule 1,250 Mcg PO WEEKLY Lasix (Furosemide) 80 Mg Tablet 80 Mg PO BID Clopidogrel (Clopidogrel Bisulfate) 75 Mg Tablet 75 Mg PO DAILY Carvedilol 25 Mg Tablet 25 Mg PO BIDWMEALS Isosorbide Dinitrate 40 Mg Tablet.er 5 Mg PO TID Gabapentin 600 Mg Tablet 300 Mg PO TID Protonix (Pantoprazole Sodium) 40 Mg Tablet.dr 40 Mg PO BID Hydralazine Hcl 100 Mg Tablet 100 Mg PO TID Amlodipine Besylate 10 Mg Tablet 10 Mg PO DAILY Crestor (Rosuvastatin Calcium) 20 Mg Tablet 20 Mg PO QHS Levemir Flexpen (Insulin Detemir) 100 Unit/1 Ml Insuln.pen 60 Unit SQ HS Novolog Flexpen (Insulin Aspart) 100 Unit/1 Ml Insuln.pen 30 Unit SQ TIDAC Vitals/I & O Vital Sign - Last 24 Hours 10/25/20 10/25/20 10/25/20 10/25/20 09:23 11:00 14:00 14:20 Temp 98.2 98.2 Pulse 74 75 70 Resp 20 B/P (MAP) 144/65 (91) 131/60 131/60 Pulse Ox 97 98 O2 Delivery Nasal Cannula Nasal Cannula O2 Flow Rate 1.0 1.0 10/25/20 10/25/20 10/25/20 10/25/20 15:00 19:55 20:02 21:00 Temp 98.3 98.1 98.3 98.1 Pulse 75 78 73 Resp 20 19 B/P (MAP) 131/60 (83) 135/55 (81) 135/47 Pulse Ox 100 96 O2 Delivery Nasal Cannula Nasal Cannula Nasal Cannula O2 Flow Rate 2.0 2.0 2.0 10/25/20 10/25/20 10/25/20 10/26/20 22:09 22:09 22:48 02:56 Temp 97.2 98.4 97.2 98.4 Pulse 74 75 73 68 Resp 18 21 B/P (MAP) 135/47 135/47 135/47 (76) 120/57 (78) Pulse Ox 92 100 O2 Delivery Nasal Cannula Nasal Cannula O2 Flow Rate 2.0 2.0 10/26/20 07:00 Temp 98.1 98.1 Pulse 72 Resp 20 B/P (MAP) 162/58 (92) Pulse Ox 94 O2 Delivery Nasal Cannula O2 Flow Rate 2.0 Intake and Output 10/25/20 10/25/20 10/26/20 15:00 23:00 07:00 Intake Total 515 ml 850 ml 100 ml Output Total 450 ml Balance 515 ml 850 ml -350 ml Justicifation of Admission Dx: Justifications for Admission: Justification of Admission Dx: N/A LORRAINE GUNN MD Oct 26, 2020 08:53
[2020-10-26] MEDS: amLODIPine BESYLATE 10 MG TABLET PO SCH (09:00)
[2020-10-26 09:19] LABS: ALBUMIN 2.6 g/dL (3.4-5.0); C-REACTIVE PROTEIN 79.8 mg/L (0-3.3); CALCIUM 8.8 mg/dL (8.5-10.1); CREATININE 3.4 mg/dL (0.7-1.3); GFR 22.8; PHOSPHORUS 4.7 mg/dL (2.6-4.7); POTASSIUM 5.3 mmol/L (3.5-5.1)
--- NOTE | 2020-10-26 10:05 | PDOC ---
DATE OF SERVICE DATE: 10/26/20 TIME: 10:05 SUBJECTIVE ROS stable , sleeping. Per Nursing his brother states he should be on dialysis, probably his other sibling at ?on HD OBJECTIVE Vital Signs Vital Signs Date Time Temp Pulse Resp B/P (MAP) Pulse Ox O2 Delivery O2 Flow Rate FiO2 10/26/20 08:43 72 162/58 10/26/20 07:00 98.1 20 94 Nasal Cannula 2.0 98.1 I & 0 Intake and Output 10/26/20 07:00 Intake Total 1465 ml Output Total 450 ml Balance 1015 ml Intake Oral 1115 ml IV Total 350 ml Output Urine Total 450 ml # Bowel Movements 1 PHYSICAL EXAM Physical Exam General: Alert, Oriented X3, Cooperative, No acute distress HEENT: Atraumatic, Mucous membr. moist/pin, On o2 by NC Neck supple Lungs: Decreased at bases, Non labored Heart: distant heart sounds Abdomen: Soft, Morbidly obese Extremities: LE edema + Skin: No breakdown, No significant lesion Neuro: Normal speech, Sensation intact. Unable to move EDELMIRA Alvarez in place DIAGNOSIS/ASSESSMENT Assessment & Plan MARQUISE on CKD- ATN , ,he was significantly Orthostatic yesterday NonOliguric, good UOP , Renal function improved some , Supportive care, Lasix held since saturday , continue IV NS eith monitoring Resp status, jonah RN, , avoid nephrotoxins, Strict I/O , Monitor Labs QD Mildly Elevated CK- Improving. Advised to hold statin CKD stage 3 B- Seen by WET [facility]K HANGER in our practice . Cr was at his baseline at P resentation to PMC Generalized weakness- netta LE Neuro consulted, currently no indication for HD Ac Resp failure - Stable on O2 by NC, Cxr No e/o pulm Congestion , Morbidly Obese, ROXANNE, COPD Acute on chronic diastolic CHF: due to noncompliance and continued cocaine use. CxR unremarkable AECOPD with continued tobaccoism ROXANNE: uses CPAP at home Substance abuse: uses cocaine HTN urgency: improved PAD: prior bypass, clinically stable DM2: reports 200s usually at home, Uncontrolled Anemia likely from chronic disease: Hgb 7.3 , Tsats Low. MOREIRA per primary as indicated COMMENT/RELEVANT DATA Meds Current Medications Medications (Trade) Dose Ordered Sig/Kiera Start Time Stop Time Status Last Admin Dose Admin Acetaminophen (Tylenol) 650 mg PRN Q6HRS PRN 10/20/20 16:15 2/21 14:19 650 MG Al Hydroxide/Mg Hydroxide (Mylanta Plus Xs) 30 ml PRN Q3HRS PRN 10/20/20 16:15 Amlodipine Besylate (Norvasc) 10 mg DAILY 10/21/20 09:00 10/25/20 08:48 10 MG Aspirin (Aspirin Chewable) 81 mg DAILYWBKFT 10/21/20 08:00 10/26/20 08:43 81 MG Atorvastatin Calcium (Lipitor) 80 mg QHS 10/20/20 21:00 10/25/20 13:42 DC 10/24/20 21:42 80 MG Bisacodyl (Dulcolax Supp) 10 mg PRN DAILY PRN 10/20/20 16:15 Calcium Carbonate/ Glycine (Tums) 500 mg PRN Q3HRS PRN 10/20/20 16:15 Carvedilol (Coreg) 25 mg BIDWMEALS 10/20/20 17:30 10/26/20 08:42 25 MG Clopidogrel Bisulfate (Plavix) 75 mg DAILY 10/21/20 09:00 10/26/20 08:44 75 MG Dextrose (Dextrose 50%-Water Syringe) 12.5 gm PRN Q15MIN PRN 10/20/20 15:45 Duloxetine HCl (Cymbalta) 30 mg DAILY 10/25/20 15:00 10/26/20 08:43 30 MG Furosemide (Lasix) 80 mg BID92 10/20/20 17:30 10/21/20 09:37 DC 10/21/20 08:54 80 MG Gabapentin (Neurontin) 300 mg TID 10/20/20 21:00 10/26/20 08:43 300 MG Heparin Sodium (Porcine) (Heparin Sodium) 5,000 unit Q8HRS 10/20/20 16:30 10/26/20 06:28 5,000 UNIT Hydralazine HCl (Apresoline Inj) 10 mg PRN Q20MIN PRN 10/20/20 15:30 10/20/20 16:28 10 MG Hydralazine HCl (Apresoline) 100 mg TID 10/20/20 21:00 10/25/20 08:48 100 MG Insulin Glargine (Lantus Syringe) 70 unit QHS 10/23/20 21:00 10/25/20 22:13 60 UNIT Insulin Human Lispro (HumaLOG) 30 units TIDWMEALS 10/21/20 08:00 10/25/20 18:40 30 UNITS Isosorbide Dinitrate (Isordil) 5 mg TID 10/20/20 21:00 10/26/20 08:43 5 MG Lidocaine (Lidoderm) 2 patch DAILY 10/24/20 09:00 10/26/20 08:42 2 PATCH Lorazepam (Ativan Inj) 1 mg PRN Q4HRS PRN 10/20/20 17:30 10/22/20 11:57 1 MG Magnesium Hydroxide (Milk Of Magnesia) 2,400 mg PRN Q12HR PRN 10/20/20 16:15 10/22/20 06:11 2,400 MG Miscellaneous (Lidoderm Patch Removal) 1 ea QHS 10/24/20 21:00 Morphine Sulfate (Morphine Sulfate) 4 mg PRN Q2HR PRN 10/20/20 16:30 10/23/20 12:06 4 MG Nitroglycerin (Nitro-Bid Oint) 1 inch 1X ONCE 10/20/20 13:15 10/20/20 13:16 DC 10/20/20 13:22 1 INCH Ondansetron HCl (Zofran) 4 mg PRN Q6HRS PRN 10/20/20 16:15 10/22/20 11:57 4 MG Pantoprazole Sodium (Protonix) 40 mg BIDAC 10/20/20 17:30 10/26/20 08:43 40 MG Polysaccharide Iron Complex (Niferex 150) 150 mg DAILY 10/24/20 14:00 10/26/20 08:44 150 MG Senna/Docusate Sodium (Senna Plus) 2 tab PRN QEVNG PRN 10/20/20 17:30 Sodium Chloride 1,000 ml @ 75 mls/hr [id number] 10/25/20 14:00 10/26/20 08:52 75 MLS/HR Spironolactone (Aldactone) 25 mg DAILY 10/21/20 09:00 10/21/20 14:06 DC 10/21/20 08:52 25 MG Tamsulosin HCl (Flomax) 0.4 mg DAILY 10/21/20 09:00 10/26/20 08:44 0.4 MG Tramadol HCl (Ultram) 50 mg PRN Q6HRS PRN 10/20/20 16:30 10/24/20 08:25 50 MG Zolpidem Tartrate (Ambien) 5 mg PRN QHS PRN 10/20/20 16:15 10/20/20 21:39 5 MG Lab Laboratory Tests Test 10/25/20 12:13 10/25/20 18:30 10/25/20 20:15 10/26/20 08:06 Glucose (Fingerstick) 186 mg/dL (70-99) 138 mg/dL (70-99) 143 mg/dL (70-99) 194 mg/dL (70-99) Test 10/26/20 08:34 Sodium Level 136 mmol/L (136-145) Potassium Level 5.3 mmol/L (3.5-5.1) Chloride Level 102 mmol/L (98-107) Carbon Dioxide Level 24 mmol/L (21-32) Anion Gap 10 (6-14) Blood Urea Nitrogen 68 mg/dL (8-26) Creatinine 3.4 mg/dL (0.7-1.3) Estimated GFR (Cockcroft-Gault) 22.8 Glucose Level 176 mg/dL (70-99) Calcium Level 8.8 mg/dL (8.5-10.1) Phosphorus Level 4.7 mg/dL (2.6-4.7) Creatine Kinase 2192 U/L (39-308) C-Reactive Protein, Quantitative 79.8 mg/L (0-3.3) Albumin 2.6 g/dL (3.4-5.0) Thyroid Stimulating Hormone (TSH) 0.879 uIU/mL (0.358-3.74) Results All relevant outside records, renal labs, imaging studies, telemetry/EKG's were reviewed. Justicifation of Admission Dx: Justifications for Admission: Justification of Admission Dx: N/A NATASHA MCDONALD MD Oct 26, 2020 10:05
[2020-10-26] MEDS ORDERED: LACTULOSE 20 GM/30 ML SOLUTION. PO ONE ×2 (10:30)
[2020-10-26 11:00] VITALS: BP 145/64
[2020-10-26 15:00] VITALS: BP 145/66
[2020-10-26 19:00] VITALS: BP 118/74
[2020-10-26] MEDS: PATCH REMOVAL. MC SCH (21:00)
[2020-10-26] MEDS: INSULIN GLARGINE SYRINGE. SQ SCH (21:11)
[2020-10-26 22:54] VITALS: BP 134/59
[2020-10-27 02:30] VITALS: BP 129/66
[2020-10-27] MEDS: MORPHINE SULFATE 4 MG/ML VIAL. IV PRN ×6 (04:22→20:41)
[2020-10-27] MEDS: PANTOPRAZOLE 40 MG TABLET.DR. PO SCH ×2 (05:57→17:21)
[2020-10-27] MEDS: HEPARIN for SUB-Q USE 5,000 UNIT/ML VIAL. SQ SCH ×3 (05:58→20:26)
[2020-10-27 06:17] LABS: CALCIUM 8.4 mg/dL (8.5-10.1); CREATININE 2.8 mg/dL (0.7-1.3); GFR 28.5; POTASSIUM 4.5 mmol/L (3.5-5.1)
[2020-10-27 07:00] VITALS: BP 167/69
[2020-10-27] MEDS: INSULIN LISPRO 300 UNITS/3 ML VIAL. SQ SCH ×6 (08:00→17:27)
[2020-10-27] MEDS: GABAPENTIN 300 MG CAPSULE. PO SCH ×3 (08:03→20:18)
[2020-10-27] MEDS: TAMSULOSIN 0.4 MG CAP.ER.24H. PO SCH (08:03)
[2020-10-27] MEDS: DULoxetine HCL 30 MG CAPSULE.DR PO SCH (08:03)
[2020-10-27] MEDS: CLOPIDOGREL BISULFATE 75 MG TABLET PO SCH (08:03)
[2020-10-27] MEDS: IRON POLYSACCHARIDE COMPLEX 150 MG CAPSULE PO SCH (08:03)
[2020-10-27] MEDS: ASPIRIN CHEWABLE 81 MG TABLET. PO SCH (08:03)
[2020-10-27] MEDS: LIDOCAINE (700MG/PATCH) PATCH. TD SCH (08:04)
[2020-10-27] MEDS: amLODIPine BESYLATE 10 MG TABLET PO SCH (08:04)
[2020-10-27] MEDS: CARVEDILOL 12.5 MG TABLET. PO SCH ×2 (08:05→17:21)
[2020-10-27] MEDS: ISOSORBIDE DINITRATE 10 MG TABLET. PO SCH ×3 (08:06→20:18)
[2020-10-27] MEDS: IV NORMAL SALINE 1000ML BAG 1,000 ML IV SCH ×2 (08:10→20:19)
--- NOTE | 2020-10-27 08:12 | PDOC ---
PROGRESS NOTES Date of Service: DATE: 10/27/20 TIME: 08:12 Chief Complaint Chief Complaint impression Acute respiratory failure with hypoxia Acute diastolic heart failure (CHF) aortic stenosis Elevated brain natriuretic peptide (BNP) level Pulmonary HTN , severe due to cocaine abuse CKD Normocytic anemia Hypertensive urgency Right breast mass Malnutrition normocytic anemia CKD stage 3 B- Seen by ONLINE MARKETING COORDINATOR renal . Cr was at his baseline at Presentation to [facility] Peripheral neuropathy, most likely from diabetes exacerbated by acute metabolic issues including anemia and renal failure. Consider acute inflammatory demyelinating neuropathy, 2-11 remains SOA, using bipap at hs poor prognosis due to cocaine abuse 37 MIN pt exam, chart review, > 50% of time spent with exam, chart review, pt care coordination History of Present Illness History of Present Illness 2-11 remains SOA, using cpap at hs poor prognosis due to cocaine abuse, abg today 2-10 Peripheral neuropathy, most likely from diabetes rule out other causes, exacerbated by acute metabolic issues including anemia and renal failure. Consider acute inflammatory demyelinating neuropathy, D/W RN 10/25 - Pt is in moderate distress, states he is profoundly weak and is eager to get to the bottom on this problem. Discussed his continue compliance with cpap machine. Mr Moran is a 54yo M w/ PMHx Diabetes-Type II, High Cholesterol, Hypertension, Pancreatitis, CKD 4, presents to the ER with complaint of worsening shortness of breath of the past 3 days. He reports associated intermittent chest pain and bilateral lower extremity swelling. States his symptoms are worse with exertion. Upon arrival in the ED his BNP was 3029. He was placed on BiPAP given IV morphine with improvement of symptoms. States he has not taken any of his home medications today. He does report a tender lump in his right breast for the past 3 weeks, reports a family history of breast cancer. He denies any fever, sick contacts, or known COVID-19 exposure. Will admit patient for further medical management. 10/21: Patient seen and evaluated. Improved on BiPAP overnight. Afebrile, denies chest pain. Blood pressure better controlled. CBG 323 this morning. Of note patient did order two trays of nondiabetic meals, and had fried chicken delivered to his room last night. Discussed importance of cardiac and diabetic diet for his heart health. Continue to diurese with Lasix. Echocardiogram and ultrasound right breast pending. If appropriately diuresed and no concerning findings on right breast ultrasound, Vitals Vitals Vital Signs Date Time Temp Pulse Resp B/P (MAP) Pulse Ox O2 Delivery O2 Flow Rate FiO2 10/27/20 06:27 Nasal Cannula 2.0 10/27/20 05:57 20 98 10/27/20 02:30 97.8 60 129/66 (87) 97.8 Physical Exam Physical Exam Distant S1 and S2 noted on exam. Moderate expiratory wheezes noted on lung exam. 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 General: Alert, Oriented X3, Cooperative, No acute distress, mild distress Heart: Regular rate, No murmurs, Other Lungs: Wheezing, Crackles Abdomen: Soft Extremities: No cyanosis, Other Skin: No breakdown, No significant lesion Labs LABS Laboratory Tests Test 10/26/20 08:34 10/26/20 12:05 10/26/20 17:22 10/26/20 19:48 Sodium Level 136 mmol/L (136-145) Potassium Level 5.3 mmol/L (3.5-5.1) Chloride Level 102 mmol/L (98-107) Carbon Dioxide Level 24 mmol/L (21-32) Anion Gap 10 (6-14) Blood Urea Nitrogen 68 mg/dL (8-26) Creatinine 3.4 mg/dL (0.7-1.3) Estimated GFR (Cockcroft-Gault) 22.8 Glucose Level 176 mg/dL (70-99) Calcium Level 8.8 mg/dL (8.5-10.1) Phosphorus Level 4.7 mg/dL (2.6-4.7) Creatine Kinase 2192 U/L (39-308) C-Reactive Protein, Quantitative 79.8 mg/L (0-3.3) Albumin 2.6 g/dL (3.4-5.0) Thyroid Stimulating Hormone (TSH) 0.879 uIU/mL (0.358-3.74) Glucose (Fingerstick) 163 mg/dL (70-99) 266 mg/dL (70-99) 226 mg/dL (70-99) Test 10/27/20 04:13 10/27/20 05:45 10/27/20 07:40 Glucose (Fingerstick) 144 mg/dL (70-99) 169 mg/dL (70-99) Sodium Level 137 mmol/L (136-145) Potassium Level 4.5 mmol/L (3.5-5.1) Chloride Level 105 mmol/L (98-107) Carbon Dioxide Level 24 mmol/L (21-32) Anion Gap 8 (6-14) Blood Urea Nitrogen 62 mg/dL (8-26) Creatinine 2.8 mg/dL (0.7-1.3) Estimated GFR (Cockcroft-Gault) 28.5 Glucose Level 181 mg/dL (70-99) Calcium Level 8.4 mg/dL (8.5-10.1) Assessment and Plan Assessmemt and Plan Problems Medical Problems: (1) Chest pain Status: Acute (2) CHF exacerbation Status: Acute (3) HTN (hypertension) Status: Acute (4) Person under investigation for COVID-19 Status: Acute Comment Review of Relevant I have reviewed the following items karissa (where applicable) has been applied. Labs Laboratory Tests Test 10/25/20 08:45 10/25/20 12:13 10/25/20 18:30 10/25/20 20:15 White Blood Count 7.2 x10^3/uL (4.0-11.0) Red Blood Count 2.53 x10^6/uL (4.30-5.70) Hemoglobin 7.2 g/dL (13.0-17.5) Hematocrit 22.6 % (39.0-53.0) Mean Corpuscular Volume 90 fL (79-100) Mean Corpuscular Hemoglobin 29 pg (25-35) Mean Corpuscular Hemoglobin Concent 32 g/dL (31-37) Red Cell Distribution Width 15.1 % (11.5-14.5) Platelet Count 202 x10^3/uL (140-400) Neutrophils (%) (Auto) 75 % (31-73) Lymphocytes (%) (Auto) 15 % (24-48) Monocytes (%) (Auto) 7 % (0-9) Eosinophils (%) (Auto) 2 % (0-3) Basophils (%) (Auto) 1 % (0-3) Neutrophils # (Auto) 5.4 x10^3/uL (1.8-7.7) Lymphocytes # (Auto) 1.1 x10^3/uL (1.0-4.8) Monocytes # (Auto) 0.5 x10^3/uL (0.0-1.1) Eosinophils # (Auto) 0.1 x10^3/uL (0.0-0.7) Basophils # (Auto) 0.0 x10^3/uL (0.0-0.2) Sodium Level 136 mmol/L (136-145) Potassium Level 4.7 mmol/L (3.5-5.1) Chloride Level 101 mmol/L (98-107) Carbon Dioxide Level 25 mmol/L (21-32) Anion Gap 10 (6-14) Blood Urea Nitrogen 66 mg/dL (8-26) Creatinine 3.7 mg/dL (0.7-1.3) Estimated GFR (Cockcroft-Gault) 20.7 Glucose Level 178 mg/dL (70-99) Calcium Level 9.3 mg/dL (8.5-10.1) Creatine Kinase 3270 U/L (39-308) Glucose (Fingerstick) 186 mg/dL (70-99) 138 mg/dL (70-99) 143 mg/dL (70-99) Test 10/26/20 08:06 10/26/20 08:34 10/26/20 12:05 10/26/20 17:22 Glucose (Fingerstick) 194 mg/dL (70-99) 163 mg/dL (70-99) 266 mg/dL (70-99) Sodium Level 136 mmol/L (136-145) Potassium Level 5.3 mmol/L (3.5-5.1) Chloride Level 102 mmol/L (98-107) Carbon Dioxide Level 24 mmol/L (21-32) Anion Gap 10 (6-14) Blood Urea Nitrogen 68 mg/dL (8-26) Creatinine 3.4 mg/dL (0.7-1.3) Estimated GFR (Cockcroft-Gault) 22.8 Glucose Level 176 mg/dL (70-99) Calcium Level 8.8 mg/dL (8.5-10.1) Phosphorus Level 4.7 mg/dL (2.6-4.7) Creatine Kinase 2192 U/L (39-308) C-Reactive Protein, Quantitative 79.8 mg/L (0-3.3) Albumin 2.6 g/dL (3.4-5.0) Thyroid Stimulating Hormone (TSH) 0.879 uIU/mL (0.358-3.74) Test 10/26/20 19:48 10/27/20 04:13 10/27/20 05:45 10/27/20 07:40 Glucose (Fingerstick) 226 mg/dL (70-99) 144 mg/dL (70-99) 169 mg/dL (70-99) Sodium Level 137 mmol/L (136-145) Potassium Level 4.5 mmol/L (3.5-5.1) Chloride Level 105 mmol/L (98-107) Carbon Dioxide Level 24 mmol/L (21-32) Anion Gap 8 (6-14) Blood Urea Nitrogen 62 mg/dL (8-26) Creatinine 2.8 mg/dL (0.7-1.3) Estimated GFR (Cockcroft-Gault) 28.5 Glucose Level 181 mg/dL (70-99) Calcium Level 8.4 mg/dL (8.5-10.1) Laboratory Tests Test 10/26/20 08:34 10/26/20 12:05 10/26/20 17:22 10/26/20 19:48 Sodium Level 136 mmol/L (136-145) Potassium Level 5.3 mmol/L (3.5-5.1) Chloride Level 102 mmol/L (98-107) Carbon Dioxide Level 24 mmol/L (21-32) Anion Gap 10 (6-14) Blood Urea Nitrogen 68 mg/dL (8-26) Creatinine 3.4 mg/dL (0.7-1.3) Estimated GFR (Cockcroft-Gault) 22.8 Glucose Level 176 mg/dL (70-99) Calcium Level 8.8 mg/dL (8.5-10.1) Phosphorus Level 4.7 mg/dL (2.6-4.7) Creatine Kinase 2192 U/L (39-308) C-Reactive Protein, Quantitative 79.8 mg/L (0-3.3) Albumin 2.6 g/dL (3.4-5.0) Thyroid Stimulating Hormone (TSH) 0.879 uIU/mL (0.358-3.74) Glucose (Fingerstick) 163 mg/dL (70-99) 266 mg/dL (70-99) 226 mg/dL (70-99) Test 10/27/20 04:13 10/27/20 05:45 10/27/20 07:40 Glucose (Fingerstick) 144 mg/dL (70-99) 169 mg/dL (70-99) Sodium Level 137 mmol/L (136-145) Potassium Level 4.5 mmol/L (3.5-5.1) Chloride Level 105 mmol/L (98-107) Carbon Dioxide Level 24 mmol/L (21-32) Anion Gap 8 (6-14) Blood Urea Nitrogen 62 mg/dL (8-26) Creatinine 2.8 mg/dL (0.7-1.3) Estimated GFR (Cockcroft-Gault) 28.5 Glucose Level 181 mg/dL (70-99) Calcium Level 8.4 mg/dL (8.5-10.1) Microbiology 10/24/20 Urine Culture - Final, Complete Medications Current Medications Nitroglycerin (Nitro-Bid Oint) 1 inch 1X ONCE TP Last administered on 10/20/20at 13:22; Start 10/20/20 at 13:15; Stop 10/20/20 at 13:16; Status DC Morphine Sulfate (Morphine Sulfate) 4 mg 1X ONCE IV Last administered on 10/20/20at 13:23; Start 10/20/20 at 13:15; Stop 10/20/20 at 13:16; Status DC Furosemide (Lasix) 80 mg 1X ONCE IVP Last administered on 10/20/20at 16:25; Start 10/20/20 at 15:45; Stop 10/20/20 at 15:46; Status DC Hydralazine HCl (Apresoline Inj) 10 mg PRN Q20MIN PRN IVP ELEVATED BP, SEE COMMENTS Last administered on 10/20/20at 16:28; Start 10/20/20 at 15:30 Furosemide (Lasix) 80 mg [id number] PO Last administered on 10/23/20at 08:11; Start 10/21/20 at 09:00; Stop 10/24/20 at 15:14; Status DC Insulin Human Lispro (HumaLOG) 0-9 UNITS TIDWMEALS SQ Last administered on 10/23/20at 12:12; Start 10/20/20 at 17:00 Dextrose (Dextrose 50%-Water Syringe) 12.5 gm PRN Q15MIN PRN IV SEE COMMENTS; Start 10/20/20 at 15:45 Ondansetron HCl (Zofran) 4 mg PRN Q6HRS PRN IVP NAUSEA/VOMITING Last administer ed on 10/22/20 11:57; Start 10/20/20 at 16:15 Al Hydroxide/Mg Hydroxide (Mylanta Plus Xs) 30 ml PRN Q3HRS PRN PO HEARTBURN / GAS; Start 10/20/20 at 16:15 Calcium Carbonate/ Glycine (Tums) 500 mg PRN Q3HRS PRN PO UPSET STOMACH; Start 10/20/20 at 16:15 Zolpidem Tartrate (Ambien) 5 mg PRN QHS PRN PO INSOMNIA, MAY REPEAT IN 1HR Last administered on 10/20/20 21:39; Start 10/20/20 at 16:15 Acetaminophen (Tylenol) 650 mg PRN Q6HRS PRN PO Headaches, Temp > 101.5F Last administered on 10/25/20 14:19; Start 10/20/20 at 16:15 Magnesium Hydroxide (Milk Of Magnesia) 2,400 mg PRN Q12HR PRN PO CONSTIPATION Last administered on 10/22/20 06:11; Start 10/20/20 at 16:15 Bisacodyl (Dulcolax Supp) 10 mg PRN DAILY PRN [place] CONSTIPATION; Start 10/20/20 at 16:15 Heparin Sodium (Porcine) (Heparin Sodium) 5,000 unit Q8HRS SQ Last administered on 10/27/20 05:58; Start 10/20/20 at 16:30 Morphine Sulfate (Morphine Sulfate) 4 mg PRN Q2HR PRN IV MODERATE TO SEVERE PAIN Last administered on 10/27/20 05:57; Start 10/20/20 at 16:30 Tramadol HCl (Ultram) 50 mg PRN Q6HRS PRN PO MILD TO MODERATE PAIN Last administered on 10/24/20 08:25; Start 10/20/20 at 16:30 Amlodipine Besylate (Norvasc) 10 mg DAILY PO Last administered on 10/25/20 08:48; Start 10/21/20 at 09:00 Aspirin (Aspirin Chewable) 81 mg DAILYWBKFT PO Last administered on 2/10/21at 08:43; Start 10/21/20 at 08:00 Clopidogrel Bisulfate (Plavix) 75 mg DAILY PO Last administered on 10/26/20 08:44; Start 10/21/20 at 09:00 Furosemide (Lasix) 80 mg BID92 PO Last administered on 10/21/20at 08:54; Start 10/20/20 at 17:30; Stop 10/21/20 at 09:37; Status DC Pantoprazole Sodium (Protonix) 40 mg BIDAC PO Last administered on 10/27/20 05:57; Start 10/20/20 at 17:30 Senna/Docusate Sodium (Senna Plus) 2 tab PRN QEVNG PRN PO CONSTIPATION; Start 10/20/20 at 17:30 Spironolactone (Aldactone) 25 mg DAILY PO Last administered on 10/21/20at 08:52; Start 10/21/20 at 09:00; Stop 10/21/20 at 14:06; Status DC Tamsulosin HCl (Flomax) 0.4 mg DAILY PO Last administered on 10/26/20at 08:44; Start 10/21/20 at 09:00 Carvedilol (Coreg) 25 mg BIDWMEALS PO Last administered on 10/26/20 17:44; Start 10/20/20 at 17:30 Gabapentin (Neurontin) 300 mg TID PO Last administered on 10/26/20 20:59; Start 10/20/20 at 21:00 Hydralazine HCl (Apresoline) 100 mg TID PO Last administered on 10/26/20 21:05; Start 10/20/20 at 21:00 Insulin Human Lispro (HumaLOG) 30 units TIDWMEALS SQ Last administered on 10/26/20 17:54; Start 10/21/20 at 08:00 Insulin Glargine (Lantus Syringe) 60 unit QHS SQ Last administered on 10/22/20 21:17; Start 10/20/20 at 21:00; Stop 10/23/20 at 13:07; Status DC Isosorbide Dinitrate (Isordil) 5 mg TID PO Last administered on 10/26/20 20:57; Start 10/20/20 at 21:00 Atorvastatin Calcium (Lipitor) 80 mg QHS PO Last administered on 10/24/20 21:42; Start 10/20/20 at 21:00; Stop 10/25/20 at 13:42; Status DC Lorazepam (Ativan Inj) 1 mg PRN Q4HRS PRN IVP ANXIETY / AGITATION Last administered on 10/22/20 11:57; Start 10/20/20 at 17:30 Insulin Glargine (Lantus Syringe) 70 unit QHS SQ Last administered on 10/26/20 21:11; Start 10/23/20 at 21:00 Lidocaine (Lidoderm) 2 patch DAILY TD Last administered on 10/26/20 08:42; Start 10/24/20 at 09:00 Miscellaneous (Lidoderm Patch Removal) 1 ea QHS MC Last administered on 10/26/20 21:00; Start 10/24/20 at 21:00 Polysaccharide Iron Complex (Niferex 150) 150 mg DAILY PO Last administered on 10/26/20 08:44; Start 10/24/20 at 14:00 Sodium Chloride 1,000 ml @ 75 mls/hr [id number] ONCE IV ; Start 10/25/20 at 11:15; Stop 10/25/20 at 13:42; Status DC Sodium Chloride 1,000 ml @ 75 mls/hr [id number] IV Last administered on 10/26/20at 21:04; Start 10/25/20 at 14:00 Duloxetine HCl (Cymbalta) 30 mg DAILY PO Last administered on 10/26/20 08:43; Start 10/25/20 at 15:00 Lactulose (Lactulose) 20 gm 1X ONCE PO Last administered on 10/26/20 12:47; Start 10/26/20 at 10:30; Stop 10/26/20 at 10:31; Status DC Lactulose (Lactulose) 20 gm 1X ONCE PO Last administered on 10/26/20 12:47; Start 10/26/20 at 10:30; Stop 10/26/20 at 10:31; Status DC Active Scripts Active Flomax (Tamsulosin Hcl) 0.4 Mg Cap.er.24h 0.4 Mg PO DAILY Children's Aspirin (Aspirin) 81 Mg Tab.chew 81 Mg PO DAILYWBKFT Reported Senna-Docusate Sodium Tablet (Sennosides/Docusate Sodium) 1 Each Tablet 2 Tab PO PRN QEVNG PRN 5 Days Spironolactone 25 Mg Tablet 25 Mg PO DAILY Vitamin D2 (Ergocalciferol (Vitamin D2)) 1,250 Mcg Capsule 1,250 Mcg PO WEEKLY Lasix (Furosemide) 80 Mg Tablet 80 Mg PO BID Clopidogrel (Clopidogrel Bisulfate) 75 Mg Tablet 75 Mg PO DAILY Carvedilol 25 Mg Tablet 25 Mg PO BIDWMEALS Isosorbide Dinitrate 40 Mg Tablet.er 5 Mg PO TID Gabapentin 600 Mg Tablet 300 Mg PO TID Protonix (Pantoprazole Sodium) 40 Mg Tablet.dr 40 Mg PO BID Hydralazine Hcl 100 Mg Tablet 100 Mg PO TID Amlodipine Besylate 10 Mg Tablet 10 Mg PO DAILY Crestor (Rosuvastatin Calcium) 20 Mg Tablet 20 Mg PO QHS Levemir Flexpen (Insulin Detemir) 100 Unit/1 Ml Insuln.pen 60 Unit SQ HS Novolog Flexpen (Insulin Aspart) 100 Unit/1 Ml Insuln.pen 30 Unit SQ TIDAC Vitals/I & O Vital Sign - Last 24 Hours 10/26/20 10/26/20 10/26/20 10/26/20 08:42 08:43 09:00 09:00 Pulse 72 72 62 62 B/P (MAP) 162/58 162/58 145/64 145/64 10/26/20 10/26/20 10/26/20 10/26/20 11:00 14:00 15:00 17:44 Temp 98.2 98.0 98.2 98.0 Pulse 62 73 64 73 Resp 20 22 B/P (MAP) 145/64 (91) 113/65 145/66 (92) 113/65 Pulse Ox 98 100 O2 Delivery BiPAP/CPAP Nasal Cannula O2 Flow Rate 2.0 10/26/20 10/26/20 10/26/20 10/26/20 17:44 19:00 20:00 20:57 Temp 98.2 98.2 Pulse 73 65 65 Resp 20 B/P (MAP) 113/65 118/74 (89) 118/74 Pulse Ox 98 O2 Delivery Nasal Cannula Nasal Cannula O2 Flow Rate 2.0 2.0 10/26/20 10/26/20 10/26/20 10/27/20 21:05 22:54 23:22 02:30 Temp 98.0 97.8 98.0 97.8 Pulse 65 60 60 Resp 21 B/P (MAP) 118/74 134/59 (84) 129/66 (87) Pulse Ox 100 98 O2 Delivery BiPAP/CPAP Nasal Cannula BiPAP/CPAP O2 Flow Rate 2.0 10/27/20 10/27/20 10/27/20 10/27/20 04:22 04:52 05:57 06:27 Resp 20 20 20 Pulse Ox 98 98 98 O2 Delivery Nasal Cannula Nasal Cannula Nasal Cannula Nasal Cannula O2 Flow Rate 2.0 2.0 2.0 2.0 Intake and Output 10/26/20 10/26/20 10/27/20 15:00 23:00 07:00 Intake Total 575 ml 1450 ml 300 ml Output Total 525 ml 600 ml Balance 50 ml 1450 ml -300 ml Justicifation of Admission Dx: Justifications for Admission: Justification of Admission Dx: N/A CHANELL ALBERTS MD Oct 27, 2020 08:12
--- NOTE | 2020-10-27 09:42 | PDOC ---
DATE OF SERVICE DATE: 10/27/20 TIME: 09:40 SUBJECTIVE ROS stable, c/o Weakness from low back down to LE . No N/V OBJECTIVE Vital Signs Vital Signs Date Time Temp Pulse Resp B/P (MAP) Pulse Ox O2 Delivery O2 Flow Rate FiO2 10/27/20 09:00 18 99 Nasal Cannula 2.0 10/27/20 08:06 66 167/69 10/27/20 07:00 98.1 98.1 I & 0 Intake and Output 10/27/20 07:00 Intake Total 2325 ml Output Total 1125 ml Balance 1200 ml Intake Oral 1325 ml IV Total 1000 ml Output Urine Total 1125 ml # Bowel Movements 3 PHYSICAL EXAM Physical Exam General: Alert, Oriented X3, Cooperative, No acute distress HEENT: Atraumatic, Mucous membr. moist/pin, On o2 by NC Neck supple Lungs: Decreased at bases, Non labored Heart: distant heart sounds Abdomen: Soft, Morbidly obese Extremities: LE edema + Skin: No breakdown, No significant lesion Neuro: Normal speech, Sensation intact. Unable to move EDELMIRA Diasey in place DIAGNOSIS/ASSESSMENT Assessment & Plan MARQUISE on CKD- ATN ,Overdiuresis , NonOliguric, Renal function improving with IVF Supportive care, Lasix held since saturday , continue IV NS eith monitoring Resp status, dw RN, , avoid nephrotoxins, Strict I/O , Monitor Labs QD Mildly Elevated CK- Improving. statin held . 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 Cr was at his baseline at Presentation to [facility] Generalized weakness- netta LE Neuro consulted,unrelated to Renal failure Ac Resp failure - Stable on O2 by DC, Cxr No e/o pulm Congestion , Morbidly Obese, ROXANNE, COPD Acute on chronic diastolic CHF: due to noncompliance and continued cocaine use. CxR unremarkable AECOPD with continued tobaccoism ROXANNE: uses CPAP at home Substance abuse: uses cocaine HTN urgency: improved PAD: prior bypass, clinically stable DM2: reports 200s usually at home, Uncontrolled Anemia likely from chronic disease: Hgb 7.3 , Tsats Low. MOREIRA per primary as indicated COMMENT/RELEVANT DATA Meds Current Medications Medications (Trade) Dose Ordered Sig/Kiera Start Time Stop Time Status Last Admin Dose Admin Acetaminophen (Tylenol) 650 mg PRN Q6HRS PRN 10/20/20 16:15 10/25/20 14:19 650 MG Al Hydroxide/Mg Hydroxide (Mylanta Plus Xs) 30 ml PRN Q3HRS PRN 10/20/20 16:15 Amlodipine Besylate (Norvasc) 10 mg DAILY 10/21/20 09:00 10/27/20 08:04 10 MG Aspirin (Aspirin Chewable) 81 mg DAILYWBKFT 10/21/20 08:00 10/27/20 08:03 81 MG Atorvastatin Calcium (Lipitor) 80 mg QHS 10/20/20 21:00 10/25/20 13:42 DC 10/24/20 21:42 80 MG Bisacodyl (Dulcolax Supp) 10 mg PRN DAILY PRN 10/20/20 16:15 Calcium Carbonate/ Glycine (Tums) 500 mg PRN Q3HRS PRN 10/20/20 16:15 Carvedilol (Coreg) 25 mg BIDWMEALS 10/20/20 17:30 10/27/20 08:05 25 MG Clopidogrel Bisulfate (Plavix) 75 mg DAILY 10/21/20 09:00 10/27/20 08:03 75 MG Dextrose (Dextrose 50%-Water Syringe) 12.5 gm PRN Q15MIN PRN 10/20/20 15:45 Duloxetine HCl (Cymbalta) 30 mg DAILY 10/25/20 15:00 10/27/20 08:03 30 MG Furosemide (Lasix) 80 mg BID92 10/20/20 17:30 10/21/20 09:37 DC 10/21/20 08:54 80 MG Gabapentin (Neurontin) 300 mg TID 10/20/20 21:00 10/27/20 08:03 300 MG Heparin Sodium (Porcine) (Heparin Sodium) 5,000 unit Q8HRS 10/20/20 16:30 10/27/20 05:58 5,000 UNIT Hydralazine HCl (Apresoline Inj) 10 mg PRN Q20MIN PRN 10/20/20 15:30 10/20/20 16:28 10 MG Hydralazine HCl (Apresoline) 100 mg TID 10/20/20 21:00 10/27/20 08:05 100 MG Insulin Glargine (Lantus Syringe) 70 unit QHS 10/23/20 21:00 10/26/20 21:11 70 UNIT Insulin Human Lispro (HumaLOG) 30 units TIDWMEALS 10/21/20 08:00 10/26/20 17:54 5 UNITS Isosorbide Dinitrate (Isordil) 5 mg TID 10/20/20 21:00 10/27/20 08:06 5 MG Lactulose (Lactulose) 20 gm 1X ONCE 10/26/20 10:30 10/26/20 10:31 DC 10/26/20 12:47 20 GM Lidocaine (Lidoderm) 2 patch DAILY 10/24/20 09:00 10/27/20 08:04 2 PATCH Lorazepam (Ativan Inj) 1 mg PRN Q4HRS PRN 10/20/20 17:30 10/22/20 11:57 1 MG Magnesium Hydroxide (Milk Of Magnesia) 2,400 mg PRN Q12HR PRN 10/20/20 16:15 10/22/20 06:11 2,400 MG Miscellaneous (Lidoderm Patch Removal) 1 ea QHS 10/24/20 21:00 10/26/20 21:00 1 EA Morphine Sulfate (Morphine Sulfate) 4 mg PRN Q2HR PRN 10/20/20 16:30 10/27/20 09:00 4 MG Nitroglycerin (Nitro-Bid Oint) 1 inch 1X ONCE 10/20/20 13:15 10/20/20 13:16 DC 10/20/20 13:22 1 INCH Ondansetron HCl (Zofran) 4 mg PRN Q6HRS PRN 10/20/20 16:15 10/22/20 11:57 4 MG Pantoprazole Sodium (Protonix) 40 mg BIDAC 10/20/20 17:30 10/27/20 05:57 40 MG Polysaccharide Iron Complex (Niferex 150) 150 mg DAILY 10/24/20 14:00 10/27/20 08:03 150 MG Senna/Docusate Sodium (Senna Plus) 2 tab PRN QEVNG PRN 10/20/20 17:30 Sodium Chloride 1,000 ml @ 75 mls/hr [id number] 10/25/20 14:00 10/27/20 08:10 75 MLS/HR Spironolactone (Aldactone) 25 mg DAILY 10/21/20 09:00 10/21/20 14:06 DC 10/21/20 08:52 25 MG Tamsulosin HCl (Flomax) 0.4 mg DAILY 10/21/20 09:00 10/27/20 08:03 0.4 MG Tramadol HCl (Ultram) 50 mg PRN Q6HRS PRN 10/20/20 16:30 10/24/20 08:25 50 MG Zolpidem Tartrate (Ambien) 5 mg PRN QHS PRN 10/20/20 16:15 10/20/20 21:39 5 MG Lab Laboratory Tests Test 10/26/20 12:05 10/26/20 17:22 10/26/20 19:48 10/27/20 04:13 Glucose (Fingerstick) 163 mg/dL (70-99) 266 mg/dL (70-99) 226 mg/dL (70-99) 144 mg/dL (70-99) Test 10/27/20 05:45 10/27/20 07:40 Sodium Level 137 mmol/L (136-145) Potassium Level 4.5 mmol/L (3.5-5.1) Chloride Level 105 mmol/L (98-107) Carbon Dioxide Level 24 mmol/L (21-32) Anion Gap 8 (6-14) Blood Urea Nitrogen 62 mg/dL (8-26) Creatinine 2.8 mg/dL (0.7-1.3) Estimated GFR (Cockcroft-Gault) 28.5 Glucose Level 181 mg/dL (70-99) Calcium Level 8.4 mg/dL (8.5-10.1) Glucose (Fingerstick) 169 mg/dL (70-99) Results All relevant outside records, renal labs, imaging studies, telemetry/EKG's were reviewed. Justicifation of Admission Dx: Justifications for Admission: Justification of Admission Dx: N/A NATASHA MCDONALD MD Oct 27, 2020 09:42
[2020-10-27 11:00] VITALS: BP 125/45
--- NOTE | 2020-10-27 13:32 | PDOC ---
PROGRESS NOTES Date of Service DATE: 10/27/20 TIME: 13:30 Assessment Problems Medical Problems: (1) Chest pain Status: Acute (2) CHF exacerbation Status: Acute (3) HTN (hypertension) Status: Acute (4) Person under investigation for COVID-19 Status: Acute Peripheral neuropathy, most likely from diabetes (hemoglobin A1c is 6.9), rule out other causes, exacerbated by acute metabolic issues including anemia and renal failure. Consider acute inflammatory demyelinating neuropathy, but this is unlikely, patient started getting weak at least a year ago. I find no evidence of central nervous system disease including myelopathy. Lab work so far is negative. He denies significant back pain Substance abuse, cocaine Plan Await additional laboratory studies Hold statin (already done) Rehabilitation modalities, needs inpatient rehab Continue gabapentin, watch for oversedation with renal failure. Increase on duloxetine. Follow-up with me in 4-8 weeks, I will consider EMG studies Hold on lumbar puncture. Subjective No acute complaints Objective Vital Signs Date Time Temp Pulse Resp B/P (MAP) Pulse Ox O2 Delivery O2 Flow Rate FiO2 10/27/20 11:00 98.0 61 21 125/45 (71) 100 Nasal Cannula 98.0 10/27/20 09:30 3.0 Intake and Output 10/27/20 07:00 Intake Total 2325 ml Output Total 1125 ml Balance 1200 ml Intake Oral 1325 ml IV Total 1000 ml Output Urine Total 1125 ml # Bowel Movements 3 PHYSICAL EXAM Alert. Oriented to time, place and person. PERRL. EOMI. CN: no focal findings. Muscle tone: normal. Muscle strength: 4/5 DTR: 0+ Plantar reflex: Flexor Gait: not examined in bed. Sensory exam: Stocking loss. No cerebellar signs elicited. Review of Relevant I have reviewed the following items karissa (where applicable) has been applied. Labs Laboratory Tests Test 10/25/20 18:30 10/25/20 20:15 10/26/20 08:06 10/26/20 08:34 Glucose (Fingerstick) 138 mg/dL (70-99) 143 mg/dL (70-99) 194 mg/dL (70-99) Sodium Level 136 mmol/L (136-145) Potassium Level 5.3 mmol/L (3.5-5.1) Chloride Level 102 mmol/L (98-107) Carbon Dioxide Level 24 mmol/L (21-32) Anion Gap 10 (6-14) Blood Urea Nitrogen 68 mg/dL (8-26) Creatinine 3.4 mg/dL (0.7-1.3) Estimated GFR (Cockcroft-Gault) 22.8 Glucose Level 176 mg/dL (70-99) Calcium Level 8.8 mg/dL (8.5-10.1) Phosphorus Level 4.7 mg/dL (2.6-4.7) Creatine Kinase 2192 U/L (39-308) C-Reactive Protein, Quantitative 79.8 mg/L (0-3.3) Albumin 2.6 g/dL (3.4-5.0) Thyroid Stimulating Hormone (TSH) 0.879 uIU/mL (0.358-3.74) Test 10/26/20 12:05 10/26/20 17:22 10/26/20 19:48 10/27/20 04:13 Glucose (Fingerstick) 163 mg/dL (70-99) 266 mg/dL (70-99) 226 mg/dL (70-99) 144 mg/dL (70-99) Test 10/27/20 05:45 10/27/20 07:40 10/27/20 11:51 Sodium Level 137 mmol/L (136-145) Potassium Level 4.5 mmol/L (3.5-5.1) Chloride Level 105 mmol/L (98-107) Carbon Dioxide Level 24 mmol/L (21-32) Anion Gap 8 (6-14) Blood Urea Nitrogen 62 mg/dL (8-26) Creatinine 2.8 mg/dL (0.7-1.3) Estimated GFR (Cockcroft-Gault) 28.5 Glucose Level 181 mg/dL (70-99) Calcium Level 8.4 mg/dL (8.5-10.1) Glucose (Fingerstick) 169 mg/dL (70-99) 147 mg/dL (70-99) Laboratory Tests Test 10/26/20 17:22 10/26/20 19:48 10/27/20 04:13 10/27/20 05:45 Glucose (Fingerstick) 266 mg/dL (70-99) 226 mg/dL (70-99) 144 mg/dL (70-99) Sodium Level 137 mmol/L (136-145) Potassium Level 4.5 mmol/L (3.5-5.1) Chloride Level 105 mmol/L (98-107) Carbon Dioxide Level 24 mmol/L (21-32) Anion Gap 8 (6-14) Blood Urea Nitrogen 62 mg/dL (8-26) Creatinine 2.8 mg/dL (0.7-1.3) Estimated GFR (Cockcroft-Gault) 28.5 Glucose Level 181 mg/dL (70-99) Calcium Level 8.4 mg/dL (8.5-10.1) Test 10/27/20 07:40 10/27/20 11:51 Glucose (Fingerstick) 169 mg/dL (70-99) 147 mg/dL (70-99) Microbiology 10/24/20 Urine Culture - Final, Complete Medications Current Medications Nitroglycerin (Nitro-Bid Oint) 1 inch 1X ONCE TP Last administered on 10/20/20 13:22; Start 10/20/20 at 13:15; Stop 10/20/20 at 13:16; Status DC Morphine Sulfate (Morphine Sulfate) 4 mg 1X ONCE IV Last administered on 10/20/20at 13:23; Start 10/20/20 at 13:15; Stop 10/20/20 at 13:16; Status DC Furosemide (Lasix) 80 mg 1X ONCE IVP Last administered on 10/20/20at 16:25; Start 10/20/20 at 15:45; Stop 10/20/20 at 15:46; Status DC Hydralazine HCl (Apresoline Inj) 10 mg PRN Q20MIN PRN IVP ELEVATED BP, SEE COMMENTS Last administered on 10/20/20at 16:28; Start 10/20/20 at 15:30 Furosemide (Lasix) 80 mg [id number] PO Last administered on 10/23/20at 08:11; Start 10/21/20 at 09:00; Stop 10/24/20 at 15:14; Status DC Insulin Human Lispro (HumaLOG) 0-9 UNITS TIDWMEALS SQ Last administered on 10/27/20at 08:17; Start 10/20/20 at 17:00 Dextrose (Dextrose 50%-Water Syringe) 12.5 gm PRN Q15MIN PRN IV SEE COMMENTS; Start 10/20/20 at 15:45 Ondansetron HCl (Zofran) 4 mg PRN Q6HRS PRN IVP NAUSEA/VOMITING Last administered on 10/22/20 11:57; Start 10/20/20 at 16:15 Al Hydroxide/Mg Hydroxide (Mylanta Plus Xs) 30 ml PRN Q3HRS PRN PO HEARTBURN / GAS; Start 10/20/20 at 16:15 Calcium Carbonate/ Glycine (Tums) 500 mg PRN Q3HRS PRN PO UPSET STOMACH; Start 10/20/20 at 16:15 Zolpidem Tartrate (Ambien) 5 mg PRN QHS PRN PO INSOMNIA, MAY REPEAT IN 1HR Last administered on 10/20/20 21:39; Start 10/20/20 at 16:15 Acetaminophen (Tylenol) 650 mg PRN Q6HRS PRN PO Headaches, Temp > 101.5F Last administered on 10/25/20 14:19; Start 10/20/20 at 16:15 Magnesium Hydroxide (Milk Of Magnesia) 2,400 mg PRN Q12HR PRN PO CONSTIPATION Last administered on 10/22/20 06:11; Start 10/20/20 at 16:15 Bisacodyl (Dulcolax Supp) 10 mg PRN DAILY PRN IN CONSTIPATION; Start 10/20/20 at 16:15 Heparin Sodium (Porcine) (Heparin Sodium) 5,000 unit Q8HRS SQ Last administered on 10/27/20 05:58; Start 10/20/20 at 16:30 Morphine Sulfate (Morphine Sulfate) 4 mg PRN Q2HR PRN IV MODERATE TO SEVERE PAIN Last administered on 10/27/20at 09:00; Start 10/20/20 at 16:30 Tramadol HCl (Ultram) 50 mg PRN Q6HRS PRN PO MILD TO MODERATE PAIN Last administered on 10/24/20 08:25; Start 10/20/20 at 16:30 Amlodipine Besylate (Norvasc) 10 mg DAILY PO Last administered on 10/27/20 08:04; Start 10/21/20 at 09:00 Aspirin (Aspirin Chewable) 81 mg [id number] PO Last administered on 10/27/20 08:03; Start 10/21/20 at 08:00 Clopidogrel Bisulfate (Plavix) 75 mg DAILY PO Last administered on 10/27/20 08:03; Start 10/21/20 at 09:00 Furosemide (Lasix) 80 mg BID92 PO Last administered on 10/21/20 08:54; Start 10/20/20 at 17:30; Stop 10/21/20 at 09:37; Status DC Pantoprazole Sodium (Protonix) 40 mg BIDAC PO Last administered on 10/27/20 05:57; Start 10/20/20 at 17:30 Senna/Docusate Sodium (Senna Plus) 2 tab PRN QEVNG PRN PO CONSTIPATION; Start 10/20/20 at 17:30 Spironolactone (Aldactone) 25 mg DAILY PO Last administered on 10/21/20 08:52; Start 10/21/20 at 09:00; Stop 10/21/20 at 14:06; Status DC Tamsulosin HCl (Flomax) 0.4 mg DAILY PO Last administered on 10/27/20 08:03; Start 10/21/20 at 09:00 Carvedilol (Coreg) 25 mg BIDWMEALS PO Last administered on 10/27/20 08:05; Start 10/20/20 at 17:30 Gabapentin (Neurontin) 300 mg TID PO Last administered on 10/27/20 08:03; Start 10/20/20 at 21:00 Hydralazine HCl (Apresoline) 100 mg TID PO Last administered on 10/27/20 08:05; Start 10/20/20 at 21:00 Insulin Human Lispro (HumaLOG) 30 units TIDWMEALS SQ Last administered on 10/26/20 17:54; Start 10/21/20 at 08:00 Insulin Glargine (Lantus Syringe) 60 unit QHS SQ Last administered on 10/22/20 21:17; Start 10/20/20 at 21:00; Stop 10/23/20 at 13:07; Status DC Isosorbide Dinitrate (Isordil) 5 mg TID PO Last administered on 10/27/20 08:06; Start 10/20/20 at 21:00 Atorvastatin Calcium (Lipitor) 80 mg QHS PO Last administered on 10/24/20 21:42; Start 10/20/20 at 21:00; Stop 10/25/20 at 13:42; Status DC Lorazepam (Ativan Inj) 1 mg PRN Q4HRS PRN IVP ANXIETY / AGITATION Last administered on 10/22/20at 11:57; Start 10/20/20 at 17:30 Insulin Glargine (Lantus Syringe) 70 unit QHS SQ Last administered on 10/26/20at 21:11; Start 10/23/20 at 21:00 Lidocaine (Lidoderm) 2 patch DAILY TD Last administered on 10/27/20at 08:04; Start 10/24/20 at 09:00 Miscellaneous (Lidoderm Patch Removal) 1 ea QHS MC Last administered on 10/17 at 21:00; Start 10/24/20 at 21:00 Polysaccharide Iron Complex (Niferex 150) 150 mg DAILY PO Last administered on 10/27/20at 08:03; Start 10/24/20 at 14:00 Sodium Chloride 1,000 ml @ 75 mls/hr [id number] ONCE IV ; Start 10/25/20 at 11:15; Stop 10/25/20 at 13:42; Status DC Sodium Chloride 1,000 ml @ 75 mls/hr [id number] IV Last administered on 10/27/20at 08:10; Start 10/25/20 at 14:00 Duloxetine HCl (Cymbalta) 30 mg DAILY PO Last administered on 10/27/20at 08:03; Start 10/25/20 at 15:00 Lactulose (Lactulose) 20 gm 1X ONCE PO Last administered on 10/26/20at 12:47; Start 10/26/20 at 10:30; Stop 10/26/20 at 10:31; Status DC Lactulose (Lactulose) 20 gm 1X ONCE PO Last administered on 10/26/20at 12:47; Start 10/26/20 at 10:30; Stop 10/26/20 at 10:31; Status DC Active Scripts Active Flomax (Tamsulosin Hcl) 0.4 Mg Cap.er.24h 0.4 Mg PO DAILY Children's Aspirin (Aspirin) 81 Mg Tab.chew 81 Mg PO [id number] Reported Senna-Docusate Sodium Tablet (Sennosides/Docusate Sodium) 1 Each Tablet 2 Tab PO PRN QEVNG PRN 5 Days Spironolactone 25 Mg Tablet 25 Mg PO DAILY Vitamin D2 (Ergocalciferol (Vitamin D2)) 1,250 Mcg Capsule 1,250 Mcg PO WEEKLY Lasix (Furosemide) 80 Mg Tablet 80 Mg PO BID Clopidogrel (Clopidogrel Bisulfate) 75 Mg Tablet 75 Mg PO DAILY Carvedilol 25 Mg Tablet 25 Mg PO BIDWMEALS Isosorbide Dinitrate 40 Mg Tablet.er 5 Mg PO TID Gabapentin 600 Mg Tablet 300 Mg PO TID Protonix (Pantoprazole Sodium) 40 Mg Tablet.dr 40 Mg PO BID Hydralazine Hcl 100 Mg Tablet 100 Mg PO TID Amlodipine Besylate 10 Mg Tablet 10 Mg PO DAILY Crestor (Rosuvastatin Calcium) 20 Mg Tablet 20 Mg PO QHS Levemir Flexpen (Insulin Detemir) 100 Unit/1 Ml Insuln.pen 60 Unit SQ HS Novolog Flexpen (Insulin Aspart) 100 Unit/1 Ml Insuln.pen 30 Unit SQ TIDAC Vitals/I & O Vital Sign - Last 24 Hours 10/26/20 10/26/20 10/26/20 10/26/20 14:00 15:00 17:44 17:44 Temp 98.0 98.0 Pulse 73 64 73 73 Resp 22 B/P (MAP) 113/65 145/66 (92) 113/65 113/65 Pulse Ox 100 O2 Delivery Nasal Cannula O2 Flow Rate 2.0 10/26/20 10/26/20 10/26/20 10/26/20 19:00 20:00 20:57 21:05 Temp 98.2 98.2 Pulse 65 65 65 Resp 20 B/P (MAP) 118/74 (89) 118/74 118/74 Pulse Ox 98 O2 Delivery Nasal Cannula Nasal Cannula O2 Flow Rate 2.0 2.0 10/26/20 10/26/20 10/27/20 10/27/20 22:54 23:22 02:30 04:22 Temp 98.0 97.8 98.0 97.8 Pulse 60 60 Resp 20 B/P (MAP) 134/59 (84) 129/66 (87) Pulse Ox 100 98 98 O2 Delivery BiPAP/CPAP Nasal Cannula BiPAP/CPAP Nasal Cannula O2 Flow Rate 2.0 2.0 10/27/20 10/27/20 10/27/20 10/27/20 04:52 05:57 06:27 07:00 Temp 98.1 98.1 Pulse 67 Resp 20 20 21 B/P (MAP) 167/69 (101) Pulse Ox 98 98 96 O2 Delivery Nasal Cannula Nasal Cannula Nasal Cannula Nasal Cannula O2 Flow Rate 2.0 2.0 2.0 10/27/20 10/27/20 10/27/20 10/27/20 08:00 08:04 08:05 08:05 Pulse 66 66 66 B/P (MAP) 167/69 167/69 167/69 O2 Delivery Nasal Cannula O2 Flow Rate 2.0 10/27/20 10/27/20 10/27/20 10/27/20 08:06 09:00 09:30 11:00 Temp 98.0 98.0 Pulse 66 61 Resp 18 18 21 B/P (MAP) 167/69 125/45 (71) Pulse Ox 99 99 100 O2 Delivery Nasal Cannula Nasal Cannula Nasal Cannula O2 Flow Rate 2.0 3.0 Intake and Output 10/26/20 10/26/20 10/27/20 15:00 23:00 07:00 Intake Total 575 ml 1450 ml 300 ml Output Total 525 ml 600 ml Balance 50 ml 1450 ml -300 ml Justicifation of Admission Dx: Justifications for Admission: Justification of Admission Dx: N/A LORRAINE GUNN MD Oct 27, 2020 13:32
[2020-10-27 15:00] VITALS: BP 145/57
[2020-10-27 17:04] LABS: BASE EXCESS COOX -5 mmol/L (-3-3); HCO3 COOX 20 mmol/L (21-28); METHEMOGLOBIN 0.5 % (0.0-1.9); OXYHEMOGLOBIN 91.9 %; PCO2 COOX 38 mmHg (35-46); PO2 COOX 75 mmHg (75-108); SAT O2 COOX 93 % (92-99)
[2020-10-27 19:00] VITALS: BP 143/49
[2020-10-27 20:09] LABS: ALBUM 2.8 g/dL (2.9-4.4); ALPHA 1 0.3 g/dL (0.0-0.4); ALPHA 2 0.9 g/dL (0.4-1.0); BETA 1.1 g/dL (0.7-1.3); GAMMA 1.1 g/dL (0.4-1.8); PROTEIN TOTAL 6.2 g/dL (6.0-8.5); SPEP AG RATIO 0.8 (0.7-1.7)
[2020-10-27] MEDS: INSULIN GLARGINE SYRINGE. SQ SCH (20:25)
[2020-10-27] MEDS: PATCH REMOVAL. MC SCH (20:37)
[2020-10-27 22:52] VITALS: BP 140/55
[2020-10-28] VITALS (9 sets, daily range): BP systolic 121–142; BP diastolic 40–67
[2020-10-28] MEDS: PANTOPRAZOLE 40 MG TABLET.DR. PO SCH ×2 (06:02→17:09)
[2020-10-28] MEDS: HEPARIN for SUB-Q USE 5,000 UNIT/ML VIAL. SQ SCH ×3 (06:04→20:52)
[2020-10-28 07:01] LABS: ALBUMIN 2.4 g/dL (3.4-5.0); ALBUMIN/GLOBULIN RATIO 0.6 (1.0-1.7); CALCIUM 8.3 mg/dL (8.5-10.1); CREATININE 2.5 mg/dL (0.7-1.3); GFR 32.5; POTASSIUM 4.6 mmol/L (3.5-5.1); TOTAL BILIRUBIN 0.3 mg/dL (0.2-1.0); TOTAL PROTEIN 6.2 g/dL (6.4-8.2)
[2020-10-28] MEDS: MORPHINE SULFATE 4 MG/ML VIAL. IV PRN ×4 (07:20→21:06)
[2020-10-28 07:26] LABS: BASO # 0.1 x10^3/uL (0.0-0.2); BASO % 1 % (0-3); EOS # 0.2 x10^3/uL (0.0-0.7); EOS % 4 % (0-3); LYMPH % 19 % (24-48); MEAN CORPUSCULAR HEMOGLOBIN 29 pg (25-35); MEAN CORPUSCULAR HGB CONC 32 g/dL (31-37); MEAN CORPUSCULAR VOLUME 90 fL (79-100); MONO # 0.4 x10^3/uL (0.0-1.1); MONO % 7 % (0-9); NEUT # 3.7 x10^3/uL (1.8-7.7); NEUT % 69 % (31-73); PLATELET COUNT 219 x10^3/uL (140-400); RED BLOOD COUNT 2.22 x10^6/uL (4.30-5.70); RED CELL DISTRIBUTION WIDTH 14.9 % (11.5-14.5); WHITE BLOOD COUNT 5.4 x10^3/uL (4.0-11.0)
[2020-10-28 07:27] LABS: HEMATOCRIT 19.9 % (39.0-53.0); HEMOGLOBIN 6.4 g/dL (13.0-17.5)
[2020-10-28] MEDS: INSULIN LISPRO 300 UNITS/3 ML VIAL. SQ SCH ×6 (08:00→16:34)
--- NOTE | 2020-10-28 08:39 | PDOC ---
PROGRESS NOTES Date of Service DATE: 10/28/20 TIME: 08:38 Assessment Problems Medical Problems: (1) Chest pain Status: Acute (2) CHF exacerbation Status: Acute (3) HTN (hypertension) Status: Acute (4) Person under investigation for COVID-19 Status: Acute Peripheral neuropathy, most likely from diabetes (hemoglobin A1c is 6.9), rule out other causes, exacerbated by acute metabolic issues including anemia and renal failure. Consider acute inflammatory demyelinating neuropathy, but this is unlikely, patient started getting weak at least a year ago. I find no evidence of central nervous system disease including myelopathy. Lab work so far is negative. He denies significant back pain Substance abuse, cocaine Plan Await additional laboratory studies Hold statin (already done) Rehabilitation modalities, needs inpatient rehab Continue gabapentin and duloxetine. Follow-up with me for outpatient EMG studies Hold on lumbar puncture. Subjective No complaints Objective Vital Signs Date Time Temp Pulse Resp B/P (MAP) Pulse Ox O2 Delivery O2 Flow Rate FiO2 10/28/20 07:55 98.0 66 22 135/55 (81) 97 Room Air 98.0 10/28/20 07:20 2.0 Intake and Output 10/28/20 07:00 Intake Total 2020 ml Output Total 1000 ml Balance 1020 ml Intake Oral 1020 ml IV Total 1000 ml Output Urine Total 1000 ml PHYSICAL EXAM Alert. Oriented to time, place and person. PERRL. EOMI. CN: no focal findings. Muscle tone: normal. Muscle strength: 4/5 DTR: 0+ Plantar reflex: Flexor Gait: not examined in bed. Sensory exam: Stocking loss. Review of Relevant I have reviewed the following items karissa (where applicable) has been applied. Labs Laboratory Tests Test 10/26/20 12:05 10/26/20 17:22 10/26/20 19:48 10/27/20 04:13 Glucose (Fingerstick) 163 mg/dL (70-99) 266 mg/dL (70-99) 226 mg/dL (70-99) 144 mg/dL (70-99) Test 10/27/20 05:45 10/27/20 07:40 10/27/20 11:51 10/27/20 16:45 Sodium Level 137 mmol/L (136-145) Potassium Level 4.5 mmol/L (3.5-5.1) Chloride Level 105 mmol/L (98-107) Carbon Dioxide Level 24 mmol/L (21-32) Anion Gap 8 (6-14) Blood Urea Nitrogen 62 mg/dL (8-26) Creatinine 2.8 mg/dL (0.7-1.3) Estimated GFR (Cockcroft-Gault) 28.5 Glucose Level 181 mg/dL (70-99) Calcium Level 8.4 mg/dL (8.5-10.1) Glucose (Fingerstick) 169 mg/dL (70-99) 147 mg/dL (70-99) 225 mg/dL (70-99) Test 10/27/20 16:50 10/27/20 19:31 10/28/20 05:00 10/28/20 07:10 O2 Saturation 93 % (92-99) Arterial Blood pH 7.35 (7.35-7.45) Arterial Blood pCO2 at Patient Temp 38 mmHg (35-46) Arterial Blood pO2 at Patient Temp 75 mmHg (75-108) Arterial Blood HCO3 20 mmol/L (21-28) Arterial Blood Base Excess -5 mmol/L (-3-3) Oxyhemoglobin 91.9 % Methemoglobin 0.5 % (0.0-1.9) Carbon Monoxide, Quantitative 0.8 % (0.0-1.9) FiO2 28% Glucose (Fingerstick) 164 mg/dL (70-99) Sodium Level 136 mmol/L (136-145) Potassium Level 4.6 mmol/L (3.5-5.1) Chloride Level 106 mmol/L (98-107) Carbon Dioxide Level 23 mmol/L (21-32) Anion Gap 7 (6-14) Blood Urea Nitrogen 62 mg/dL (8-26) Creatinine 2.5 mg/dL (0.7-1.3) Estimated GFR (Cockcroft-Gault) 32.5 BUN/Creatinine Ratio 25 (6-20) Glucose Level 94 mg/dL (70-99) Calcium Level 8.3 mg/dL (8.5-10.1) Total Bilirubin 0.3 mg/dL (0.2-1.0) Aspartate Amino Transf (AST/SGOT) 24 U/L (15-37) Alanine Aminotransferase (ALT/SGPT) 40 U/L (16-63) Alkaline Phosphatase 71 U/L (46-116) Total Protein 6.2 g/dL (6.4-8.2) Albumin 2.4 g/dL (3.4-5.0) Albumin/Globulin Ratio 0.6 (1.0-1.7) White Blood Count 5.4 x10^3/uL (4.0-11.0) Red Blood Count 2.22 x10^6/uL (4.30-5.70) Hemoglobin 6.4 g/dL (13.0-17.5) Hematocrit 19.9 % (39.0-53.0) Mean Corpuscular Volume 90 fL (79-100) Mean Corpuscular Hemoglobin 29 pg (25-35) Mean Corpuscular Hemoglobin Concent 32 g/dL (31-37) Red Cell Distribution Width 14.9 % (11.5-14.5) Platelet Count 219 x10^3/uL (140-400) Neutrophils (%) (Auto) 69 % (31-73) Lymphocytes (%) (Auto) 19 % (24-48) Monocytes (%) (Auto) 7 % (0-9) Eosinophils (%) (Auto) 4 % (0-3) Basophils (%) (Auto) 1 % (0-3) Neutrophils # (Auto) 3.7 x10^3/uL (1.8-7.7) Lymphocytes # (Auto) 1.0 x10^3/uL (1.0-4.8) Monocytes # (Auto) 0.4 x10^3/uL (0.0-1.1) Eosinophils # (Auto) 0.2 x10^3/uL (0.0-0.7) Basophils # (Auto) 0.1 x10^3/uL (0.0-0.2) Laboratory Tests Test 10/27/20 11:51 10/27/20 16:45 10/27/20 16:50 10/27/20 19:31 Glucose (Fingerstick) 147 mg/dL (70-99) 225 mg/dL (70-99) 164 mg/dL (70-99) O2 Saturation 93 % (92-99) Arterial Blood pH 7.35 (7.35-7.45) Arterial Blood pCO2 at Patient Temp 38 mmHg (35-46) Arterial Blood pO2 at Patient Temp 75 mmHg (75-108) Arterial Blood HCO3 20 mmol/L (21-28) Arterial Blood Base Excess -5 mmol/L (-3-3) Oxyhemoglobin 91.9 % Methemoglobin 0.5 % (0.0-1.9) Carbon Monoxide, Quantitative 0.8 % (0.0-1.9) FiO2 28% Test 10/28/20 05:00 10/28/20 07:10 Sodium Level 136 mmol/L (136-145) Potassium Level 4.6 mmol/L (3.5-5.1) Chloride Level 106 mmol/L (98-107) Carbon Dioxide Level 23 mmol/L (21-32) Anion Gap 7 (6-14) Blood Urea Nitrogen 62 mg/dL (8-26) Creatinine 2.5 mg/dL (0.7-1.3) Estimated GFR (Cockcroft-Gault) 32.5 BUN/Creatinine Ratio 25 (6-20) Glucose Level 94 mg/dL (70-99) Calcium Level 8.3 mg/dL (8.5-10.1) Total Bilirubin 0.3 mg/dL (0.2-1.0) Aspartate Amino Transf (AST/SGOT) 24 U/L (15-37) Alanine Aminotransferase (ALT/SGPT) 40 U/L (16-63) Alkaline Phosphatase 71 U/L (46-116) Total Protein 6.2 g/dL (6.4-8.2) Albumin 2.4 g/dL (3.4-5.0) Albumin/Globulin Ratio 0.6 (1.0-1.7) White Blood Count 5.4 x10^3/uL (4.0-11.0) Red Blood Count 2.22 x10^6/uL (4.30-5.70) Hemoglobin 6.4 g/dL (13.0-17.5) Hematocrit 19.9 % (39.0-53.0) Mean Corpuscular Volume 90 fL (79-100) Mean Corpuscular Hemoglobin 29 pg (25-35) Mean Corpuscular Hemoglobin Concent 32 g/dL (31-37) Red Cell Distribution Width 14.9 % (11.5-14.5) Platelet Count 219 x10^3/uL (140-400) Neutrophils (%) (Auto) 69 % (31-73) Lymphocytes (%) (Auto) 19 % (24-48) Monocytes (%) (Auto) 7 % (0-9) Eosinophils (%) (Auto) 4 % (0-3) Basophils (%) (Auto) 1 % (0-3) Neutrophils # (Auto) 3.7 x10^3/uL (1.8-7.7) Lymphocytes # (Auto) 1.0 x10^3/uL (1.0-4.8) Monocytes # (Auto) 0.4 x10^3/uL (0.0-1.1) Eosinophils # (Auto) 0.2 x10^3/uL (0.0-0.7) Basophils # (Auto) 0.1 x10^3/uL (0.0-0.2) Microbiology 10/24/20 Urine Culture - Final, Complete Medications Current Medications Nitroglycerin (Nitro-Bid Oint) 1 inch 1X ONCE TP Last administered on 10/20/20at 13:22; Start 10/20/20 at 13:15; Stop 10/20/20 at 13:16; Status DC Morphine Sulfate (Morphine Sulfate) 4 mg 1X ONCE IV Last administered on 10/20/20at 13:23; Start 10/20/20 at 13:15; Stop 10/20/20 at 13:16; Status DC Furosemide (Lasix) 80 mg 1X ONCE IVP Last administered on 10/20/20at 16:25; Start 10/20/20 at 15:45; Stop 10/20/20 at 15:46; Status DC Hydralazine HCl (Apresoline Inj) 10 mg PRN Q20MIN PRN IVP ELEVATED BP, SEE COMMENTS Last administered on 10/20/20at 16:28; Start 10/20/20 at 15:30 Furosemide (Lasix) 80 mg [id number] PO Last administered on 10/23/20at 08:11; Start 10/21/20 at 09:00; Stop 10/24/20 at 15:14; Status DC Insulin Human Lispro (HumaLOG) 0-9 UNITS TIDWMEALS SQ Last administered on 10/27/20at 08:17; Start 10/20/20 at 17:00 Dextrose (Dextrose 50%-Water Syringe) 12.5 gm PRN Q15MIN PRN IV SEE COMMENTS; Start 10/20/20 at 15:45 Ondansetron HCl (Zofran) 4 mg PRN Q6HRS PRN IVP NAUSEA/VOMITING Last administered on 10/22/20at 11:57; Start 10/20/20 at 16:15 Al Hydroxide/Mg Hydroxide (Mylanta Plus Xs) 30 ml PRN Q3HRS PRN PO HEARTBURN / GAS; Start 10/20/20 at 16:15 Calcium Carbonate/ Glycine (Tums) 500 mg PRN Q3HRS PRN PO UPSET STOMACH; Start 10/20/20 at 16:15 Zolpidem Tartrate (Ambien) 5 mg PRN QHS PRN PO INSOMNIA, MAY REPEAT IN 1HR Last administered on 10/20/20at 21:39; Start 10/20/20 at 16:15 Acetaminophen (Tylenol) 650 mg PRN Q6HRS PRN PO Headaches, Temp > 101.5F Last administered on 10/25/20at 14:19; Start 10/20/20 at 16:15 Magnesium Hydroxide (Milk Of Magnesia) 2,400 mg PRN Q12HR PRN PO CONSTIPATION Last administered on 10/22/20at 06:11; Start 10/20/20 at 16:15 Bisacodyl (Dulcolax Supp) 10 mg PRN DAILY PRN ND CONSTIPATION; Start 10/20/20 at 16:15 Heparin Sodium (Porcine) (Heparin Sodium) 5,000 unit Q8HRS SQ Last administered on 10/28/20at 06:04; Start 10/20/20 at 16:30 Morphine Sulfate (Morphine Sulfate) 4 mg PRN Q2HR PRN IV MODERATE TO SEVERE PAIN Last administered on 10/28/20at 07:20; Start 10/20/20 at 16:30 Tramadol HCl (Ultram) 50 mg PRN Q6HRS PRN PO MILD TO MODERATE PAIN Last administered on 10/24/20 08:25; Start 10/20/20 at 16:30 Amlodipine Besylate (Norvasc) 10 mg DAILY PO Last administered on 10/27/20at 08:04; Start 10/21/20 at 09:00 Aspirin (Aspirin Chewable) 81 mg [id number] PO Last administered on 10/27/20at 08:03; Start 10/21/20 at 08:00 Clopidogrel Bisulfate (Plavix) 75 mg DAILY PO Last administered on 10/27/20 08:03; Start 10/21/20 at 09:00 Furosemide (Lasix) 80 mg BID92 PO Last administered on 10/21/20 08:54; Start 10/20/20 at 17:30; Stop 10/21/20 at 09:37; Status DC Pantoprazole Sodium (Protonix) 40 mg BIDAC PO Last administered on 10/28/20 06:02; Start 10/20/20 at 17:30 Senna/Docusate Sodium (Senna Plus) 2 tab PRN QEVNG PRN PO CONSTIPATION; Start 10/20/20 at 17:30 Spironolactone (Aldactone) 25 mg DAILY PO Last administered on 10/21/20 08:52; Start 10/21/20 at 09:00; Stop 10/21/20 at 14:06; Status DC Tamsulosin HCl (Flomax) 0.4 mg DAILY PO Last administered on 10/27/20 08:03; Start 10/21/20 at 09:00 Carvedilol (Coreg) 25 mg BIDWMEALS PO Last administered on 10/27/20 17:21; Start 10/20/20 at 17:30 Gabapentin (Neurontin) 300 mg TID PO Last administered on 10/27/20 20:18; Start 10/20/20 at 21:00 Hydralazine HCl (Apresoline) 100 mg TID PO Last administered on 10/27/20 20:19; Start 10/20/20 at 21:00 Insulin Human Lispro (HumaLOG) 30 units TIDWMEALS SQ Last administered on 10/27/20 17:27; Start 10/21/20 at 08:00 Insulin Glargine (Lantus Syringe) 60 unit QHS SQ Last administered on 10/22/20 21:17; Start 10/20/20 at 21:00; Stop 10/23/20 at 13:07; Status DC Isosorbide Dinitrate (Isordil) 5 mg TID PO Last administered on 10/27/20 20:18; Start 10/20/20 at 21:00 Atorvastatin Calcium (Lipitor) 80 mg QHS PO Last administered on 10/24/20at 21:42; Start 10/20/20 at 21:00; Stop 10/25/20 at 13:42; Status DC Lorazepam (Ativan Inj) 1 mg PRN Q4HRS PRN IVP ANXIETY / AGITATION Last administered on 10/22/20at 11:57; Start 10/20/20 at 17:30 Insulin Glargine (Lantus Syringe) 70 unit QHS SQ Last administered on 10/27/20at 20:25; Start 10/23/20 at 21:00 Lidocaine (Lidoderm) 2 patch DAILY TD Last administered on 10/27/20at 08:04; Start 10/24/20 at 09:00 Miscellaneous (Lidoderm Patch Removal) 1 ea QHS MC Last administered on 10/17 10/06at 20:37; Start 10/24/20 at 21:00 Polysaccharide Iron Complex (Niferex 150) 150 mg DAILY PO Last administered on 10/27/20at 08:03; Start 10/24/20 at 14:00 Sodium Chloride 1,000 ml @ 75 mls/hr [id number] ONCE IV ; Start 10/25/20 at 11:15; Stop 10/25/20 at 13:42; Status DC Sodium Chloride 1,000 ml @ 75 mls/hr [id number] IV Last administered on 10/27/20at 20:19; Start 10/25/20 at 14:00 Duloxetine HCl (Cymbalta) 30 mg DAILY PO Last administered on 10/27/20at 08:03; Start 10/25/20 at 15:00; Stop 10/27/20 at 13:33; Status DC Lactulose (Lactulose) 20 gm 1X ONCE PO Last administered on 10/26/20at 12:47; Start 10/26/20 at 10:30; Stop 10/26/20 at 10:31; Status DC Lactulose (Lactulose) 20 gm 1X ONCE PO Last administered on 10/26/20at 12:47; Start 10/26/20 at 10:30; Stop 10/26/20 at 10:31; Status DC Duloxetine HCl (Cymbalta) 60 mg DAILY PO ; Start 10/28/20 at 09:00 Active Scripts Active Flomax (Tamsulosin Hcl) 0.4 Mg Cap.er.24h 0.4 Mg PO DAILY Children's Aspirin (Aspirin) 81 Mg Tab.chew 81 Mg PO [id number] Reported Senna-Docusate Sodium Tablet (Sennosides/Docusate Sodium) 1 Each Tablet 2 Tab PO PRN QEVNG PRN 5 Days Spironolactone 25 Mg Tablet 25 Mg PO DAILY Vitamin D2 (Ergocalciferol (Vitamin D2)) 1,250 Mcg Capsule 1,250 Mcg PO WEEKLY Lasix (Furosemide) 80 Mg Tablet 80 Mg PO BID Clopidogrel (Clopidogrel Bisulfate) 75 Mg Tablet 75 Mg PO DAILY Carvedilol 25 Mg Tablet 25 Mg PO BIDWMEALS Isosorbide Dinitrate 40 Mg Tablet.er 5 Mg PO TID Gabapentin 600 Mg Tablet 300 Mg PO TID Protonix (Pantoprazole Sodium) 40 Mg Tablet.dr 40 Mg PO BID Hydralazine Hcl 100 Mg Tablet 100 Mg PO TID Amlodipine Besylate 10 Mg Tablet 10 Mg PO DAILY Crestor (Rosuvastatin Calcium) 20 Mg Tablet 20 Mg PO QHS Levemir Flexpen (Insulin Detemir) 100 Unit/1 Ml Insuln.pen 60 Unit SQ HS Novolog Flexpen (Insulin Aspart) 100 Unit/1 Ml Insuln.pen 30 Unit SQ TIDAC Vitals/I & O Vital Sign - Last 24 Hours 10/27/20 10/27/20 10/27/20 10/27/20 09:00 09:30 11:00 14:20 Temp 98.0 98.0 Pulse 61 61 Resp 18 18 21 B/P (MAP) 125/45 (71) 125/45 Pulse Ox 99 99 100 O2 Delivery Nasal Cannula Nasal Cannula Nasal Cannula O2 Flow Rate 2.0 3.0 10/27/20 10/27/20 10/27/20 10/27/20 14:21 14:30 15:00 15:00 Temp 97.6 97.6 Pulse 61 67 Resp 21 B/P (MAP) 125/45 145/57 (86) Pulse Ox 100 100 100 O2 Delivery Nasal Cannula Nasal Cannula Nasal Cannula O2 Flow Rate 2.0 2.0 10/27/20 10/27/20 10/27/20 10/27/20 17:21 17:24 17:54 19:00 Temp 97.6 97.6 Pulse 67 66 Resp 22 B/P (MAP) 145/57 143/49 (80) Pulse Ox 100 100 94 O2 Delivery Nasal Cannula Nasal Cannula Room Air O2 Flow Rate 2.0 2.0 10/27/20 10/27/20 10/27/20 10/27/20 20:02 20:18 20:19 20:41 Pulse 66 66 Resp 20 B/P (MAP) 143/49 143/49 Pulse Ox 94 O2 Delivery Nasal Cannula Nasal Cannula O2 Flow Rate 2.0 2.0 10/27/20 10/27/20 10/28/20 10/28/20 21:11 22:52 02:58 07:20 Temp 97.8 97.7 97.8 97.7 Pulse 63 62 Resp 20 24 24 20 B/P (MAP) 140/55 (83) 136/58 (84) Pulse Ox 94 99 99 99 O2 Delivery Nasal Cannula BiPAP/CPAP BiPAP/CPAP Nasal Cannula O2 Flow Rate 2.0 2.0 10/28/20 10/28/20 07:50 07:55 Temp 98.0 98.0 Pulse 66 Resp 22 B/P (MAP) 135/55 (81) Pulse Ox 97 O2 Delivery BiPAP/CPAP Room Air Intake and Output 10/27/20 10/27/20 10/28/20 15:00 23:00 07:00 Intake Total 720 ml 1000 ml 300 ml Output Total 500 ml 500 ml Balance 720 ml 500 ml -200 ml Justicifation of Admission Dx: Justifications for Admission: Justification of Admission Dx: N/A LORRAINE GUNN MD Oct 28, 2020 08:39
[2020-10-28] MEDS: LIDOCAINE (700MG/PATCH) PATCH. TD SCH (09:01)
[2020-10-28] MEDS: TAMSULOSIN 0.4 MG CAP.ER.24H. PO SCH (09:01)
[2020-10-28] MEDS: ISOSORBIDE DINITRATE 10 MG TABLET. PO SCH ×3 (09:02→20:47)
[2020-10-28] MEDS: GABAPENTIN 300 MG CAPSULE. PO SCH ×3 (09:02→20:47)
[2020-10-28] MEDS: amLODIPine BESYLATE 10 MG TABLET PO SCH (09:03)
[2020-10-28] MEDS: IRON POLYSACCHARIDE COMPLEX 150 MG CAPSULE PO SCH (09:03)
[2020-10-28] MEDS: DULoxetine HCL 30 MG CAPSULE.DR PO SCH (09:03)
[2020-10-28] MEDS: CARVEDILOL 12.5 MG TABLET. PO SCH ×2 (09:04→17:09)
[2020-10-28] MEDS: IV NORMAL SALINE 1000ML BAG 1,000 ML IV SCH ×2 (09:05→20:48)
[2020-10-28] MEDS: CLOPIDOGREL BISULFATE 75 MG TABLET PO SCH (09:57)
[2020-10-28] MEDS: ASPIRIN CHEWABLE 81 MG TABLET. PO SCH (09:57)
--- NOTE | 2020-10-28 10:15 | PDOC ---
DATE OF SERVICE DATE: 10/28/20 TIME: 10:14 SUBJECTIVE ROS stable OBJECTIVE Vital Signs Vital Signs Date Time Temp Pulse Resp B/P (MAP) Pulse Ox O2 Delivery O2 Flow Rate FiO2 10/28/20 09:57 Nasal Cannula 10/28/20 09:04 66 135/55 10/28/20 07:55 98.0 22 97 98.0 10/28/20 07:20 2.0 I & 0 Intake and Output 10/28/20 07:00 Intake Total 2020 ml Output Total 1000 ml Balance 1020 ml Intake Oral 1020 ml IV Total 1000 ml Output Urine Total 1000 ml PHYSICAL EXAM Physical Exam General: Alert, Oriented X3, Cooperative, No acute distress HEENT: Atraumatic, Mucous membr. moist/pin, On o2 by NC Neck supple Lungs: Decreased at bases, Non labored Heart: distant heart sounds Abdomen: Soft, Morbidly obese Extremities: LE edema + Skin: No breakdown, No significant lesion Neuro: Normal speech, Sensation intact. Unable to move EDELMIRA Diasey in place DIAGNOSIS/ASSESSMENT Assessment & Plan MARQUISE on CKD- ATN ,Overdiuresis , NonOliguric, Renal function improved with IVF Supportive care, Lasix held since saturday ,, avoid nephrotoxins, Strict I/O , Monitor Labs QD Mildly Elevated CK- Improving. statin held . Restart per cardiology with monitoring CKD stage 3 B- Seen by DIET TECH in our practice . Cr was at his baseline at Presentation to [facility] Generalized weakness- netta LE Neuro consulted,unrelated to Renal failure Ac Resp failure - Stable on O2 by UT, Cxr No e/o pulm Congestion , Morbidly Obese, ROXANNE, COPD Acute on chronic diastolic CHF: due to noncompliance and continued cocaine use. CxR unremarkable AECOPD with continued tobaccoism ROXANNE: uses CPAP at home Substance abuse: uses cocaine HTN urgency: improved PAD: prior bypass, clinically stable DM2: reports 200s usually at home, Uncontrolled Anemia lik Tsats Low. MOREIRA per primary as indicated COMMENT/RELEVANT DATA Meds Current Medications Medications (Trade) Dose Ordered Sig/Kiera Start Time Stop Time Status Last Admin Dose Admin Acetaminophen (Tylenol) 650 mg PRN Q6HRS PRN 10/20/20 16:15 10/25/20 14:19 650 MG Al Hydroxide/Mg Hydroxide (Mylanta Plus Xs) 30 ml PRN Q3HRS PRN 10/20/20 16:15 Amlodipine Besylate (Norvasc) 10 mg DAILY 10/21/20 09:00 10/28/20 09:03 10 MG Aspirin (Aspirin Chewable) 81 mg [id number] 10/21/20 08:00 10/28/20 09:57 81 MG Atorvastatin Calcium (Lipitor) 80 mg QHS 10/20/20 21:00 10/25/20 13:42 DC 10/24/20 21:42 80 MG Bisacodyl (Dulcolax Supp) 10 mg PRN DAILY PRN 10/20/20 16:15 Calcium Carbonate/ Glycine (Tums) 500 mg PRN Q3HRS PRN 10/20/20 16:15 Carvedilol (Coreg) 25 mg BIDWMEALS 10/20/20 17:30 10/28/20 09:04 25 MG Clopidogrel Bisulfate (Plavix) 75 mg DAILY 10/21/20 09:00 10/28/20 09:57 75 MG Dextrose (Dextrose 50%-Water Syringe) 12.5 gm PRN Q15MIN PRN 10/20/20 15:45 Duloxetine HCl (Cymbalta) 60 mg DAILY 10/28/20 09:00 10/28/20 09:03 60 MG Furosemide (Lasix) 80 mg BID92 10/20/20 17:30 10/21/20 09:37 DC 10/21/20 08:54 80 MG Gabapentin (Neurontin) 300 mg TID 10/20/20 21:00 10/28/20 09:02 300 MG Heparin Sodium (Porcine) (Heparin Sodium) 5,000 unit Q8HRS 10/20/20 16:30 10/28/20 06:04 5,000 UNIT Hydralazine HCl (Apresoline Inj) 10 mg PRN Q20MIN PRN 10/20/20 15:30 10/20/20 16:28 10 MG Hydralazine HCl (Apresoline) 100 mg TID 10/20/20 21:00 10/28/20 09:03 100 MG Insulin Glargine (Lantus Syringe) 70 unit QHS 10/23/20 21:00 10/27/20 20:25 70 UNIT Insulin Human Lispro (HumaLOG) 30 units TIDWMEALS 10/21/20 08:00 10/28/20 10:02 30 UNITS Isosorbide Dinitrate (Isordil) 5 mg TID 10/20/20 21:00 10/28/20 09:02 5 MG Lactulose (Lactulose) 20 gm 1X ONCE 10/26/20 10:30 10/26/20 10:31 DC 10/26/20 12:47 20 GM Lidocaine (Lidoderm) 2 patch DAILY 10/24/20 09:00 10/28/20 09:01 2 PATCH Lorazepam (Ativan Inj) 1 mg PRN Q4HRS PRN 10/20/20 17:30 10/22/20 11:57 1 MG Magnesium Hydroxide (Milk Of Magnesia) 2,400 mg PRN Q12HR PRN 10/20/20 16:15 10/22/20 06:11 2,400 MG Miscellaneous (Lidoderm Patch Removal) 1 ea QHS 10/24/20 21:00 10/27/20 20:37 1 EA Morphine Sulfate (Morphine Sulfate) 4 mg PRN Q2HR PRN 10/20/20 16:30 10/28/20 09:57 4 MG Nitroglycerin (Nitro-Bid Oint) 1 inch 1X ONCE 10/20/20 13:15 10/20/20 13:16 DC 10/20/20 13:22 1 INCH Ondansetron HCl (Zofran) 4 mg PRN Q6HRS PRN 10/20/20 16:15 10/22/20 11:57 4 MG Pantoprazole Sodium (Protonix) 40 mg BIDAC 10/20/20 17:30 10/28/20 06:02 40 MG Polysaccharide Iron Complex (Niferex 150) 150 mg DAILY 10/24/20 14:00 10/28/20 09:03 150 MG Senna/Docusate Sodium (Senna Plus) 2 tab PRN QEVNG PRN 10/20/20 17:30 Sodium Chloride 1,000 ml @ 75 mls/hr [id number] 10/25/20 14:00 10/28/20 09:05 75 MLS/HR Spironolactone (Aldactone) 25 mg DAILY 10/21/20 09:00 10/21/20 14:06 DC 10/21/20 08:52 25 MG Tamsulosin HCl (Flomax) 0.4 mg DAILY 10/21/20 09:00 10/28/20 09:01 0.4 MG Tramadol HCl (Ultram) 50 mg PRN Q6HRS PRN 10/20/20 16:30 10/24/20 08:25 50 MG Zolpidem Tartrate (Ambien) 5 mg PRN QHS PRN 10/20/20 16:15 10/20/20 21:39 5 MG Lab Laboratory Tests Test 10/27/20 11:51 10/27/20 16:45 10/27/20 16:50 10/27/20 19:31 Glucose (Fingerstick) 147 mg/dL (70-99) 225 mg/dL (70-99) 164 mg/dL (70-99) O2 Saturation 93 % (92-99) Arterial Blood pH 7.35 (7.35-7.45) Arterial Blood pCO2 at Patient Temp 38 mmHg (35-46) Arterial Blood pO2 at Patient Temp 75 mmHg (75-108) Arterial Blood HCO3 20 mmol/L (21-28) Arterial Blood Base Excess -5 mmol/L (-3-3) Oxyhemoglobin 91.9 % Methemoglobin 0.5 % (0.0-1.9) Carbon Monoxide, Quantitative 0.8 % (0.0-1.9) FiO2 28% Test 10/28/20 05:00 10/28/20 07:10 10/28/20 08:33 Sodium Level 136 mmol/L (136-145) Potassium Level 4.6 mmol/L (3.5-5.1) Chloride Level 106 mmol/L (98-107) Carbon Dioxide Level 23 mmol/L (21-32) Anion Gap 7 (6-14) Blood Urea Nitrogen 62 mg/dL (8-26) Creatinine 2.5 mg/dL (0.7-1.3) Estimated GFR (Cockcroft-Gault) 32.5 BUN/Creatinine Ratio 25 (6-20) Glucose Level 94 mg/dL (70-99) Calcium Level 8.3 mg/dL (8.5-10.1) Total Bilirubin 0.3 mg/dL (0.2-1.0) Aspartate Amino Transf (AST/SGOT) 24 U/L (15-37) Alanine Aminotransferase (ALT/SGPT) 40 U/L (16-63) Alkaline Phosphatase 71 U/L (46-116) Total Protein 6.2 g/dL (6.4-8.2) Albumin 2.4 g/dL (3.4-5.0) Albumin/Globulin Ratio 0.6 (1.0-1.7) White Blood Count 5.4 x10^3/uL (4.0-11.0) Red Blood Count 2.22 x10^6/uL (4.30-5.70) Hemoglobin 6.4 g/dL (13.0-17.5) Hematocrit 19.9 % (39.0-53.0) Mean Corpuscular Volume 90 fL (79-100) Mean Corpuscular Hemoglobin 29 pg (25-35) Mean Corpuscular Hemoglobin Concent 32 g/dL (31-37) Red Cell Distribution Width 14.9 % (11.5-14.5) Platelet Count 219 x10^3/uL (140-400) Neutrophils (%) (Auto) 69 % (31-73) Lymphocytes (%) (Auto) 19 % (24-48) Monocytes (%) (Auto) 7 % (0-9) Eosinophils (%) (Auto) 4 % (0-3) Basophils (%) (Auto) 1 % (0-3) Neutrophils # (Auto) 3.7 x10^3/uL (1.8-7.7) Lymphocytes # (Auto) 1.0 x10^3/uL (1.0-4.8) Monocytes # (Auto) 0.4 x10^3/uL (0.0-1.1) Eosinophils # (Auto) 0.2 x10^3/uL (0.0-0.7) Basophils # (Auto) 0.1 x10^3/uL (0.0-0.2) Glucose (Fingerstick) 100 mg/dL (70-99) Results All relevant outside records, renal labs, imaging studies, telemetry/EKG's were reviewed. Justicifation of Admission Dx: Justifications for Admission: Justification of Admission Dx: N/A NATASHA MCDONALD MD Oct 28, 2020 10:15
--- NOTE | 2020-10-28 10:47 | PDOC ---
PROGRESS NOTES Date of Service: DATE: 10/28/20 TIME: 10:47 Chief Complaint Chief Complaint impression Acute respiratory failure with hypoxia Acute diastolic heart failure (CHF) aortic stenosis Elevated brain natriuretic peptide (BNP) level Pulmonary HTN , severe due to cocaine abuse CKD Normocytic anemia Hypertensive urgency Right breast mass Malnutrition normocytic anemia CKD stage 3 B- Seen by SWING MANAGER renal . Cr was at his baseline at Presentation to [facility] Peripheral neuropathy, most likely from diabetes exacerbated by acute metabolic issues including anemia and renal failure. Consider acute inflammatory demyelinating neuropathy, 2-11 remains SOA, using bipap at hs poor prognosis due to cocaine abuse 2-12 possibility of visiting with the Pulmonary Hypertension Clinic at [facility]. HE HAS NOT FOLLOWED UP, may benefit from hospice if remains noncompliant and continues cocaine usage 29 MIN pt exam, chart review, > 50% of time spent with exam, chart review, pt care coordination History of Present Illness History of Present Illness 2-12 cr 2.5, transfused, D/W RN, AM CBC 2-11 remains SOA, using cpap at poor prognosis due to cocaine abuse, abg today 2-10 Peripheral neuropathy, most likely from diabetes rule out other causes, exacerbated by acute metabolic issues including anemia and renal failure. Consider acute inflammatory demyelinating neuropathy, D/W RN 10/25 - Pt is in moderate distress, states he is profoundly weak and is eager to get to the bottom on this problem. Discussed his continue compliance with cpap machine. Mr Moran is a 54yo M w/ PMHx Diabetes-Type II, High Cholesterol, Hypertension, Pancreatitis, CKD 4, presents to the ER with complaint of worsening shortness of breath of the past 3 days. He reports associated intermi ttent chest pain and bilateral lower extremity swelling. States his symptoms are worse with exertion. Upon arrival in the ED his BNP was 3029. He was placed on BiPAP given IV morphine with improvement of symptoms. States he has not taken any of his home medications today. He does report a tender lump in his right breast for the past 3 weeks, reports a family history of breast cancer. He denies any fever, sick contacts, or known COVID-19 exposure. Will admit patient for further medical management. 10/21: Patient seen and evaluated. Improved on BiPAP overnight. Afebrile, denies chest pain. Blood pressure better controlled. CBG 323 this morning. Of note patient did order two trays of nondiabetic meals, and had fried chicken delivered to his room last night. Discussed importance of cardiac and diabetic diet for his heart health. Continue to diurese with Lasix. Echocardiogram and ultrasound right breast pending. If appropriately diuresed and no concerning findings on right breast ultrasound, Vitals Vitals Vital Signs Date Time Temp Pulse Resp B/P (MAP) Pulse Ox O2 Delivery O2 Flow Rate FiO2 10/28/20 10:23 97.8 63 24 131/54 (79) 100 Nasal Cannula 2.0 97.8 Physical Exam Physical Exam Distant S1 and S2 noted on exam. Moderate expiratory wheezes noted on lung exam. Intellectual Property Legal Assistant strength is symmetrical and 4/4. General: Alert, Oriented X3, Cooperative, No acute distress, mild distress Heart: Regular rate, No murmurs, Other Lungs: Wheezing, Crackles Abdomen: Soft Extremities: No cyanosis, Other Skin: No breakdown, No significant lesion Labs LABS Chest AP portable at 1836: Reason for examination: IJ placement. Comparison is made to previous study dated 10/20/2020. IJ catheter is present on the right with the tip at the superior vena cava right atrial junction region. Electronic device is seen over the upper left thorax. Heart size appears to be enlarged but unchanged. Mediastinum is unchanged. Lung laurent show mild prominence of the pulmonary vasculature but no definite infiltrates, pleural effusions or pneumothorax. No acute bony abnormalities are seen. IMPRESSION: Right venous catheter in place with the tip at the superior vena cava/right atrial junction region with no pneumothorax evident. Cardiomegaly with mild prominence of the pulmonary vasculature but no infiltrates or pleural effusions evident. Electronically signed by: Shanel Rocha MD (10/25/2020 7:15 PM) [facility] DICTATED and SIGNED BY: SHANEL ROCHA MD Laboratory Tests Test 10/27/20 11:51 10/27/20 16:45 10/27/20 16:50 10/27/20 19:31 Glucose (Fingerstick) 147 mg/dL (70-99) 225 mg/dL (70-99) 164 mg/dL (70-99) O2 Saturation 93 % (92-99) Arterial Blood pH 7.35 (7.35-7.45) Arterial Blood pCO2 at Patient Temp 38 mmHg (35-46) Arterial Blood pO2 at Patient Temp 75 mmHg (75-108) Arterial Blood HCO3 20 mmol/L (21-28) Arterial Blood Base Excess -5 mmol/L (-3-3) Oxyhemoglobin 91.9 % Methemoglobin 0.5 % (0.0-1.9) Carbon Monoxide, Quantitative 0.8 % (0.0-1.9) FiO2 28% Test 10/28/20 05:00 10/28/20 07:10 10/28/20 08:33 Sodium Level 136 mmol/L (136-145) Potassium Level 4.6 mmol/L (3.5-5.1) Chloride Level 106 mmol/L (98-107) Carbon Dioxide Level 23 mmol/L (21-32) Anion Gap 7 (6-14) Blood Urea Nitrogen 62 mg/dL (8-26) Creatinine 2.5 mg/dL (0.7-1.3) Estimated GFR (Cockcroft-Gault) 32.5 BUN/Creatinine Ratio 25 (6-20) Glucose Level 94 mg/dL (70-99) Calcium Level 8.3 mg/dL (8.5-10.1) Total Bilirubin 0.3 mg/dL (0.2-1.0) Aspartate Amino Transf (AST/SGOT) 24 U/L (15-37) Alanine Aminotransferase (ALT/SGPT) 40 U/L (16-63) Alkaline Phosphatase 71 U/L (46-116) Total Protein 6.2 g/dL (6.4-8.2) Albumin 2.4 g/dL (3.4-5.0) Albumin/Globulin Ratio 0.6 (1.0-1.7) White Blood Count 5.4 x10^3/uL (4.0-11.0) Red Blood Count 2.22 x10^6/uL (4.30-5.70) Hemoglobin 6.4 g/dL (13.0-17.5) Hematocrit 19.9 % (39.0-53.0) Mean Corpuscular Volume 90 fL (79-100) Mean Corpuscular Hemoglobin 29 pg (25-35) Mean Corpuscular Hemoglobin Concent 32 g/dL (31-37) Red Cell Distribution Width 14.9 % (11.5-14.5) Platelet Count 219 x10^3/uL (140-400) Neutrophils (%) (Auto) 69 % (31-73) Lymphocytes (%) (Auto) 19 % (24-48) Monocytes (%) (Auto) 7 % (0-9) Eosinophils (%) (Auto) 4 % (0-3) Basophils (%) (Auto) 1 % (0-3) Neutrophils # (Auto) 3.7 x10^3/uL (1.8-7.7) Lymphocytes # (Auto) 1.0 x10^3/uL (1.0-4.8) Monocytes # (Auto) 0.4 x10^3/uL (0.0-1.1) Eosinophils # (Auto) 0.2 x10^3/uL (0.0-0.7) Basophils # (Auto) 0.1 x10^3/uL (0.0-0.2) Glucose (Fingerstick) 100 mg/dL (70-99) Assessment and Plan Assessmemt and Plan Problems Medical Problems: (1) Chest pain Status: Acute (2) CHF exacerbation Status: Acute (3) HTN (hypertension) Status: Acute (4) Person under investigation for COVID-19 Status: Acute Comment Review of Relevant I have reviewed the following items karissa (where applicable) has been applied. Labs Laboratory Tests Test 10/26/20 12:05 10/26/20 17:22 10/26/20 19:48 10/27/20 04:13 Glucose (Fingerstick) 163 mg/dL (70-99) 266 mg/dL (70-99) 226 mg/dL (70-99) 144 mg/dL (70-99) Test 10/27/20 05:45 10/27/20 07:40 10/27/20 11:51 10/27/20 16:45 Sodium Level 137 mmol/L (136-145) Potassium Level 4.5 mmol/L (3.5-5.1) Chloride Level 105 mmol/L (98-107) Carbon Dioxide Level 24 mmol/L (21-32) Anion Gap 8 (6-14) Blood Urea Nitrogen 62 mg/dL (8-26) Creatinine 2.8 mg/dL (0.7-1.3) Estimated GFR (Cockcroft-Gault) 28.5 Glucose Level 181 mg/dL (70-99) Calcium Level 8.4 mg/dL (8.5-10.1) Glucose (Fingerstick) 169 mg/dL (70-99) 147 mg/dL (70-99) 225 mg/dL (70-99) Test 10/27/20 16:50 10/27/20 19:31 10/28/20 05:00 10/28/20 07:10 O2 Saturation 93 % (92-99) Arterial Blood pH 7.35 (7.35-7.45) Arterial Blood pCO2 at Patient Temp 38 mmHg (35-46) Arterial Blood pO2 at Patient Temp 75 mmHg (75-108) Arterial Blood HCO3 20 mmol/L (21-28) Arterial Blood Base Excess -5 mmol/L (-3-3) Oxyhemoglobin 91.9 % Methemoglobin 0.5 % (0.0-1.9) Carbon Monoxide, Quantitative 0.8 % (0.0-1.9) FiO2 28% Glucose (Fingerstick) 164 mg/dL (70-99) Sodium Level 136 mmol/L (136-145) Potassium Level 4.6 mmol/L (3.5-5.1) Chloride Level 106 mmol/L (98-107) Carbon Dioxide Level 23 mmol/L (21-32) Anion Gap 7 (6-14) Blood Urea Nitrogen 62 mg/dL (8-26) Creatinine 2.5 mg/dL (0.7-1.3) Estimated GFR (Cockcroft-Gault) 32.5 BUN/Creatinine Ratio 25 (6-20) Glucose Level 94 mg/dL (70-99) Calcium Level 8.3 mg/dL (8.5-10.1) Total Bilirubin 0.3 mg/dL (0.2-1.0) Aspartate Amino Transf (AST/SGOT) 24 U/L (15-37) Alanine Aminotransferase (ALT/SGPT) 40 U/L (16-63) Alkaline Phosphatase 71 U/L (46-116) Total Protein 6.2 g/dL (6.4-8.2) Albumin 2.4 g/dL (3.4-5.0) Albumin/Globulin Ratio 0.6 (1.0-1.7) White Blood Count 5.4 x10^3/uL (4.0-11.0) Red Blood Count 2.22 x10^6/uL (4.30-5.70) Hemoglobin 6.4 g/dL (13.0-17.5) Hematocrit 19.9 % (39.0-53.0) Mean Corpuscular Volume 90 fL (79-100) Mean Corpuscular Hemoglobin 29 pg (25-35) Mean Corpuscular Hemoglobin Concent 32 g/dL (31-37) Red Cell Distribution Width 14.9 % (11.5-14.5) Platelet Count 219 x10^3/uL (140-400) Neutrophils (%) (Auto) 69 % (31-73) Lymphocytes (%) (Auto) 19 % (24-48) Monocytes (%) (Auto) 7 % (0-9) Eosinophils (%) (Auto) 4 % (0-3) Basophils (%) (Auto) 1 % (0-3) Neutrophils # (Auto) 3.7 x10^3/uL (1.8-7.7) Lymphocytes # (Auto) 1.0 x10^3/uL (1.0-4.8) Monocytes # (Auto) 0.4 x10^3/uL (0.0-1.1) Eosinophils # (Auto) 0.2 x10^3/uL (0.0-0.7) Basophils # (Auto) 0.1 x10^3/uL (0.0-0.2) Test 10/28/20 08:33 Glucose (Fingerstick) 100 mg/dL (70-99) Laboratory Tests Test 10/27/20 11:51 10/27/20 16:45 10/27/20 16:50 10/27/20 19:31 Glucose (Fingerstick) 147 mg/dL (70-99) 225 mg/dL (70-99) 164 mg/dL (70-99) O2 Saturation 93 % (92-99) Arterial Blood pH 7.35 (7.35-7.45) Arterial Blood pCO2 at Patient Temp 38 mmHg (35-46) Arterial Blood pO2 at Patient Temp 75 mmHg (75-108) Arterial Blood HCO3 20 mmol/L (21-28) Arterial Blood Base Excess -5 mmol/L (-3-3) Oxyhemoglobin 91.9 % Methemoglobin 0.5 % (0.0-1.9) Carbon Monoxide, Quantitative 0.8 % (0.0-1.9) FiO2 28% Test 10/28/20 05:00 10/28/20 07:10 10/28/20 08:33 Sodium Level 136 mmol/L (136-145) Potassium Level 4.6 mmol/L (3.5-5.1) Chloride Level 106 mmol/L (98-107) Carbon Dioxide Level 23 mmol/L (21-32) Anion Gap 7 (6-14) Blood Urea Nitrogen 62 mg/dL (8-26) Creatinine 2.5 mg/dL (0.7-1.3) Estimated GFR (Cockcroft-Gault) 32.5 BUN/Creatinine Ratio 25 (6-20) Glucose Level 94 mg/dL (70-99) Calcium Level 8.3 mg/dL (8.5-10.1) Total Bilirubin 0.3 mg/dL (0.2-1.0) Aspartate Amino Transf (AST/SGOT) 24 U/L (15-37) Alanine Aminotransferase (ALT/SGPT) 40 U/L (16-63) Alkaline Phosphatase 71 U/L (46-116) Total Protein 6.2 g/dL (6.4-8.2) Albumin 2.4 g/dL (3.4-5.0) Albumin/Globulin Ratio 0.6 (1.0-1.7) White Blood Count 5.4 x10^3/uL (4.0-11.0) Red Blood Count 2.22 x10^6/uL (4.30-5.70) Hemoglobin 6.4 g/dL (13.0-17.5) Hematocrit 19.9 % (39.0-53.0) Mean Corpuscular Volume 90 fL (79-100) Mean Corpuscular Hemoglobin 29 pg (25-35) Mean Corpuscular Hemoglobin Concent 32 g/dL (31-37) Red Cell Distribution Width 14.9 % (11.5-14.5) Platelet Count 219 x10^3/uL (140-400) Neutrophils (%) (Auto) 69 % (31-73) Lymphocytes (%) (Auto) 19 % (24-48) Monocytes (%) (Auto) 7 % (0-9) Eosinophils (%) (Auto) 4 % (0-3) Basophils (%) (Auto) 1 % (0-3) Neutrophils # (Auto) 3.7 x10^3/uL (1.8-7.7) Lymphocytes # (Auto) 1.0 x10^3/uL (1.0-4.8) Monocytes # (Auto) 0.4 x10^3/uL (0.0-1.1) Eosinophils # (Auto) 0.2 x10^3/uL (0.0-0.7) Basophils # (Auto) 0.1 x10^3/uL (0.0-0.2) Glucose (Fingerstick) 100 mg/dL (70-99) Microbiology 10/24/20 Urine Culture - Final, Complete Medications Current Medications Nitroglycerin (Nitro-Bid Oint) 1 inch 1X ONCE TP Last administered on 10/20/20at 13:22; Start 10/20/20 at 13:15; Stop 10/20/20 at 13:16; Status DC Morphine Sulfate (Morphine Sulfate) 4 mg 1X ONCE IV Last administered on 10/20/20at 13:23; Start 10/20/20 at 13:15; Stop 10/20/20 at 13:16; Status DC Furosemide (Lasix) 80 mg 1X ONCE IVP Last administered on 10/20/20at 16:25; Start 10/20/20 at 15:45; Stop 10/20/20 at 15:46; Status DC Hydralazine HCl (Apresoline Inj) 10 mg PRN Q20MIN PRN IVP ELEVATED BP, SEE COMMENTS Last administered on 10/20/20at 16:28; Start 10/20/20 at 15:30 Furosemide (Lasix) 80 mg [id number] PO Last administered on 10/23/20at 08:11; Start 10/21/20 at 09:00; Stop 10/24/20 at 15:14; Status DC Insulin Human Lispro (HumaLOG) 0-9 UNITS TIDWMEALS SQ Last administered on 10/27/20at 08:17; Start 10/20/20 at 17:00 Dextrose (Dextrose 50%-Water Syringe) 12.5 gm PRN Q15MIN PRN IV SEE COMMENTS; Start 10/20/20 at 15:45 Ondansetron HCl (Zofran) 4 mg PRN Q6HRS PRN IVP NAUSEA/VOMITING Last administered on 10/22/20 11:57; Start 10/20/20 at 16:15 Al Hydroxide/Mg Hydroxide (Mylanta Plus Xs) 30 ml PRN Q3HRS PRN PO HEARTBURN / GAS; Start 10/20/20 at 16:15 Calcium Carbonate/ Glycine (Tums) 500 mg PRN Q3HRS PRN PO UPSET STOMACH; Start 10/20/20 at 16:15 Zolpidem Tartrate (Ambien) 5 mg PRN QHS PRN PO INSOMNIA, MAY REPEAT IN 1HR Last administered on 10/20/20 21:39; Start 10/20/20 at 16:15 Acetaminophen (Tylenol) 650 mg PRN Q6HRS PRN PO Headaches, Temp > 101.5F Last administered on 10/25/20 14:19; Start 10/20/20 at 16:15 Magnesium Hydroxide (Milk Of Magnesia) 2,400 mg PRN Q12HR PRN PO CONSTIPATION Last administered on 10/22/20 06:11; Start 10/20/20 at 16:15 Bisacodyl (Dulcolax Supp) 10 mg PRN DAILY PRN MD CONSTIPATION; Start 10/20/20 at 16:15 Heparin Sodium (Porcine) (Heparin Sodium) 5,000 unit Q8HRS SQ Last administered on 10/28/20 06:04; Start 10/20/20 at 16:30 Morphine Sulfate (Morphine Sulfate) 4 mg PRN Q2HR PRN IV MODERATE TO SEVERE PAIN Last administered on 10/28/20 09:57; Start 10/20/20 at 16:30 Tramadol HCl (Ultram) 50 mg PRN Q6HRS PRN PO MILD TO MODERATE PAIN Last administered on 10/24/20 08:25; Start 10/20/20 at 16:30 Amlodipine Besylate (Norvasc) 10 mg DAILY PO Last administered on 10/28/20 09:03; Start 10/21/20 at 09:00 Aspirin (Aspirin Chewable) 81 mg [id number] PO Last administered on 10/28/20 09:57; Start 10/21/20 at 08:00 Clopidogrel Bisulfate (Plavix) 75 mg DAILY PO Last administered on 10/28/20 09:57; Start 10/21/20 at 09:00 Furosemide (Lasix) 80 mg BID92 PO Last administered on 10/21/20 08:54; Start 10/20/20 at 17:30; Stop 10/21/20 at 09:37; Status DC Pantoprazole Sodium (Protonix) 40 mg BIDAC PO Last administered on 10/28/20 06:02; Start 10/20/20 at 17:30 Senna/Docusate Sodium (Senna Plus) 2 tab PRN QEVNG PRN PO CONSTIPATION; Start 10/20/20 at 17:30 Spironolactone (Aldactone) 25 mg DAILY PO Last administered on 10/21/20 08:52; Start 10/21/20 at 09:00; Stop 10/21/20 at 14:06; Status DC Tamsulosin HCl (Flomax) 0.4 mg DAILY PO Last administered on 10/28/20 09:01; Start 10/21/20 at 09:00 Carvedilol (Coreg) 25 mg BIDWMEALS PO Last administered on 10/28/20 09:04; Start 10/20/20 at 17:30 Gabapentin (Neurontin) 300 mg TID PO Last administered on 10/28/20 09:02; Start 10/20/20 at 21:00 Hydralazine HCl (Apresoline) 100 mg TID PO Last administered on 10/28/20 09:03; Start 10/20/20 at 21:00 Insulin Human Lispro (HumaLOG) 30 units TIDWMEALS SQ Last administered on 10/28/20 10:02; Start 10/21/20 at 08:00 Insulin Glargine (Lantus Syringe) 60 unit QHS SQ Last administered on 10/22/20 21:17; Start 10/20/20 at 21:00; Stop 10/23/20 at 13:07; Status DC Isosorbide Dinitrate (Isordil) 5 mg TID PO Last administered on 10/28/20 09:02; Start 10/20/20 at 21:00 Atorvastatin Calcium (Lipitor) 80 mg QHS PO Last administered on 10/24/20at 21:42; Start 10/20/20 at 21:00; Stop 10/25/20 at 13:42; Status DC Lorazepam (Ativan Inj) 1 mg PRN Q4HRS PRN IVP ANXIETY / AGITATION Last administered on 10/22/20 11:57; Start 10/20/20 at 17:30 Insulin Glargine (Lantus Syringe) 70 unit QHS SQ Last administered on 10/27/20at 20:25; Start 10/23/20 at 21:00 Lidocaine (Lidoderm) 2 patch DAILY TD Last administered on 10/28/20 09:01; Start 10/24/20 at 09:00 Miscellaneous (Lidoderm Patch Removal) 1 ea QHS MC Last administered on 10/27/20at 20:37; Start 10/24/20 at 21:00 Polysaccharide Iron Complex (Niferex 150) 150 mg DAILY PO Last administered on 10/28/20 09:03; Start 10/24/20 at 14:00 Sodium Chloride 1,000 ml @ 75 mls/hr [id number] ONCE IV ; Start 10/25/20 at 11:15; Stop 10/25/20 at 13:42; Status DC Sodium Chloride 1,000 ml @ 75 mls/hr [id number] IV Last administered on 10/28/20at 09:05; Start 10/25/20 at 14:00 Duloxetine HCl (Cymbalta) 30 mg DAILY PO Last administered on 10/27/20at 08:03; Start 10/25/20 at 15:00; Stop 10/27/20 at 13:33; Status DC Lactulose (Lactulose) 20 gm 1X ONCE PO Last administered on 10/26/20at 12:47; Start 10/26/20 at 10:30; Stop 10/26/20 at 10:31; Status DC Lactulose (Lactulose) 20 gm 1X ONCE PO Last administered on 10/26/20at 12:47; Start 10/26/20 at 10:30; Stop 10/26/20 at 10:31; Status DC Duloxetine HCl (Cymbalta) 60 mg DAILY PO Last administered on 10/28/20at 09:03; Start 10/28/20 at 09:00 Active Scripts Active Flomax (Tamsulosin Hcl) 0.4 Mg Cap.er.24h 0.4 Mg PO DAILY Children's Aspirin (Aspirin) 81 Mg Tab.chew 81 Mg PO [id number] Reported Senna-Docusate Sodium Tablet (Sennosides/Docusate Sodium) 1 Each Tablet 2 Tab PO PRN QEVNG PRN 5 Days Spironolactone 25 Mg Tablet 25 Mg PO DAILY Vitamin D2 (Ergocalciferol (Vitamin D2)) 1,250 Mcg Capsule 1,250 Mcg PO WEEKLY Lasix (Furosemide) 80 Mg Tablet 80 Mg PO BID Clopidogrel (Clopidogrel Bisulfate) 75 Mg Tablet 75 Mg PO DAILY Carvedilol 25 Mg Tablet 25 Mg PO BIDWMEALS Isosorbide Dinitrate 40 Mg Tablet.er 5 Mg PO TID Gabapentin 600 Mg Tablet 300 Mg PO TID Protonix (Pantoprazole Sodium) 40 Mg Tablet.dr 40 Mg PO BID Hydralazine Hcl 100 Mg Tablet 100 Mg PO TID Amlodipine Besylate 10 Mg Tablet 10 Mg PO DAILY Crestor (Rosuvastatin Calcium) 20 Mg Tablet 20 Mg PO QHS Levemir Flexpen (Insulin Detemir) 100 Unit/1 Ml Insuln.pen 60 Unit SQ HS Novolog Flexpen (Insulin Aspart) 100 Unit/1 Ml Insuln.pen 30 Unit SQ TIDAC Vitals/I & O Vital Sign - Last 24 Hours 10/27/20 10/27/20 10/27/20 10/27/20 11:00 14:20 14:21 14:30 Temp 98.0 98.0 Pulse 61 61 61 Resp 21 B/P (MAP) 125/45 (71) 125/45 125/45 Pulse Ox 100 100 O2 Delivery Nasal Cannula Nasal Cannula O2 Flow Rate 2.0 10/27/20 10/27/20 10/27/20 10/27/20 15:00 15:00 17:21 17:24 Temp 97.6 97.6 Pulse 67 67 Resp 21 B/P (MAP) 145/57 (86) 145/57 Pulse Ox 100 100 100 O2 Delivery Nasal Cannula Nasal Cannula Nasal Cannula O2 Flow Rate 2.0 2.0 10/27/20 10/27/20 10/27/20 10/27/20 17:54 19:00 20:02 20:18 Temp 97.6 97.6 Pulse 66 66 Resp 22 B/P (MAP) 143/49 (80) 143/49 Pulse Ox 100 94 O2 Delivery Nasal Cannula Room Air Nasal Cannula O2 Flow Rate 2.0 2.0 10/27/20 10/27/20 10/27/2011/21 20:19 20:41 21:11 22:52 Temp 97.8 97.8 Pulse 66 63 Resp B/P (MAP) 143/49 140/55 (83) Pulse Ox 94 94 99 O2 Delivery Nasal Cannula Nasal Cannula BiPAP/CPAP O2 Flow Rate 2.0 2.0 10/28/20 10/28/20 10/28/20 10/28/20 02:58 07:20 07:50 07:55 Temp 97.7 98.0 97.7 98.0 Pulse 62 66 Resp B/P (MAP) 136/58 (84) 135/55 (81) Pulse Ox 99 99 97 O2 Delivery BiPAP/CPAP Nasal Cannula BiPAP/CPAP Room Air O2 Flow Rate 2.0 10/28/20 10/28/20 10/28/20 10/28/20 09:02 09:03 09:03 09:04 Pulse 66 66 66 66 B/P (MAP) 135/55 135/55 135/55 135/55 10/28/20 10/28/20 09:57 10:23 Temp 97.8 97.8 Pulse 63 Resp 24 B/P (MAP) 131/54 (79) Pulse Ox 100 O2 Delivery Nasal Cannula Nasal Cannula O2 Flow Rate 2.0 Intake and Output 10/27/20 10/27/20 10/28/20 15:00 23:00 07:00 Intake Total 720 ml 1000 ml 300 ml Output Total 500 ml 500 ml Balance 720 ml 500 ml -200 ml Justicifation of Admission Dx: Justifications for Admission: Justification of Admission Dx: N/A CHANELL ALBERTS MD Oct 28, 2020 10:47
[2020-10-28 18:14] LABS: ANA INTERP Negative (.)
[2020-10-28] MEDS: PATCH REMOVAL. MC SCH (20:53)
[2020-10-28] MEDS: INSULIN GLARGINE SYRINGE. SQ SCH (21:01)
[2020-10-29] VITALS (11 sets, daily range): BP systolic 127–160; BP diastolic 53–93
[2020-10-29] MEDS: MORPHINE SULFATE 4 MG/ML VIAL. IV PRN ×4 (02:41→20:28)
[2020-10-29] MEDS: PANTOPRAZOLE 40 MG TABLET.DR. PO SCH ×2 (05:57→16:21)
[2020-10-29] MEDS: HEPARIN for SUB-Q USE 5,000 UNIT/ML VIAL. SQ SCH (05:59)
[2020-10-29 06:25] LABS: CALCIUM 8.4 mg/dL (8.5-10.1); CREATININE 2.4 mg/dL (0.7-1.3); GFR 34.1
[2020-10-29 06:30] LABS: BASO % 1 % (0-3); EOS # 0.2 x10^3/uL (0.0-0.7); EOS % 4 % (0-3); LYMPH # 0.9 x10^3/uL (1.0-4.8); LYMPH % 16 % (24-48); MEAN CORPUSCULAR HEMOGLOBIN 28 pg (25-35); MEAN CORPUSCULAR HGB CONC 32 g/dL (31-37); MEAN CORPUSCULAR VOLUME 89 fL (79-100); MONO # 0.4 x10^3/uL (0.0-1.1); MONO % 8 % (0-9); NEUT # 4.2 x10^3/uL (1.8-7.7); NEUT % 72 % (31-73); PLATELET COUNT 202 x10^3/uL (140-400); RED BLOOD COUNT 2.35 x10^6/uL (4.30-5.70); RED CELL DISTRIBUTION WIDTH 15.5 % (11.5-14.5); WHITE BLOOD COUNT 5.9 x10^3/uL (4.0-11.0)
[2020-10-29 06:50] LABS: HEMATOCRIT 20.8 % (39.0-53.0); HEMOGLOBIN 6.6 g/dL (13.0-17.5)
[2020-10-29] MEDS: ASPIRIN CHEWABLE 81 MG TABLET. PO SCH (08:00)
[2020-10-29] MEDS: INSULIN LISPRO 300 UNITS/3 ML VIAL. SQ SCH ×6 (08:00→17:00)
[2020-10-29] MEDS: CLOPIDOGREL BISULFATE 75 MG TABLET PO SCH (08:39)
[2020-10-29] MEDS: IRON POLYSACCHARIDE COMPLEX 150 MG CAPSULE PO SCH (08:43)
[2020-10-29] MEDS: DULoxetine HCL 30 MG CAPSULE.DR PO SCH (08:43)
[2020-10-29] MEDS: CARVEDILOL 12.5 MG TABLET. PO SCH ×2 (08:43→17:00)
[2020-10-29] MEDS: amLODIPine BESYLATE 10 MG TABLET PO SCH (08:43)
[2020-10-29] MEDS: GABAPENTIN 300 MG CAPSULE. PO SCH ×3 (08:43→20:36)
[2020-10-29] MEDS: TAMSULOSIN 0.4 MG CAP.ER.24H. PO SCH (08:43)
[2020-10-29] MEDS: ISOSORBIDE DINITRATE 10 MG TABLET. PO SCH ×3 (08:44→20:35)
[2020-10-29] MEDS: LIDOCAINE (700MG/PATCH) PATCH. TD SCH (08:45)
--- NOTE | 2020-10-29 10:53 | PDOC ---
PROGRESS NOTES Date of Service: DATE: 10/29/20 TIME: 10:49 Chief Complaint Chief Complaint impression Acute respiratory failure with hypoxia Acute diastolic heart failure (CHF) aortic stenosis Elevated brain natriuretic peptide (BNP) level Pulmonary HTN , severe due to cocaine abuse CKD Normocytic anemia Hypertensive urgency moderate mitral regurgitation. Right breast mass Malnutrition normocytic anemia CKD stage 3 B- Seen by PRINT INSPECTOR renal . Cr was at his baseline at Presentation to [facility] Peripheral neuropathy, most likely from diabetes exacerbated by acute metabolic issues including anemia and renal failure. Consider acute inflammatory demyelinating neuropathy, 2-11 remains SOA, using bipap at hs poor prognosis due to cocaine abuse 2-12 possibility of visiting with the Pulmonary Hypertension Clinic at [facility]. HE HAS NOT FOLLOWED UP, may benefit from hospice if remains noncompliant and continues cocaine usage 2- transfused today will consult GI ? EGD, AM LABS, IV PROTONIX 38 MIN pt exam, chart review, > 50% of time spent with exam, chart review, pt care coordination History of Present Illness History of Present Illness 11-06 remains anemic after one unit, consulted GI , NPO possible PUD , CT ABD, PELVIS 2 cr 2.5, transfused, D/W RN, AM CBC 10-27 remains SOA, using cpap at hs poor prognosis due to cocaine abuse, abg today 2-10 Peripheral neuropathy, most likely from diabetes rule out other causes, exacerbated by acute metabolic issues including anemia and renal failure. Consider acute inflammatory demyelinating neuropathy, D/W RN 10/25 - Pt is in moderate distress, states he is profoundly weak and is eager to get to the bottom on this problem. Discussed his continue compliance with cpap machine. Mr Moran is a 54yo M w/ PMHx Diabetes-Type II, High Cholesterol, Hypertension, Pancreatitis, CKD 4, presents to the ER with complaint of worsening shortness of breath of the past 3 days. He reports associated intermittent chest pain and bilateral lower extremity swelling. States his symptoms are worse with exertion. Upon arrival in the ED his BNP was 3029. He was placed on BiPAP given IV morphine with improvement of symptoms. States he has not taken any of his home medications today. He does report a tender lump in his right breast for the past 3 weeks, reports a family history of breast cancer. He denies any fever, sick contacts, or known COVID-19 exposure. Will admit patient for further medical management. 10/21: Patient seen and evaluated. Improved on BiPAP overnight. Afebrile, denies chest pain. Blood pressure better controlled. CBG 323 this morning. Of note patient did order two trays of nondiabetic meals, and had fried chicken delivered to his room last night. Discussed importance of cardiac and diabetic diet for his heart health. Continue to diurese with Lasix. Echocardiogram and ultrasound right breast pending. If appropriately diuresed and no concerning findings on right breast ultrasound, Vitals Vitals Vital Signs Date Time Temp Pulse Resp B/P (MAP) Pulse Ox O2 Delivery O2 Flow Rate FiO2 10/29/20 08:44 56 135/62 10/29/20 08:42 16 Room Air 10/29/20 07:45 2.0 10/29/20 07:00 97.5 97 97.5 Physical Exam Physical Exam Distant S1 and S2 noted on exam. Moderate expiratory wheezes noted on lung exam. Observatory Director strength is symmetrical and 4/4. General: Alert, Oriented X3, Cooperative, No acute distress, mild distress Heart: Regular rate, No murmurs, Other Lungs: Wheezing, Crackles Abdomen: Soft Extremities: No cyanosis, Other Skin: No breakdown, No significant lesion Labs LABS APPROVED REPORT EXAM: Two-dimensional and M-mode echocardiogram with Doppler and color Doppler. Other Information Quality : Average INDICATION Aortic Valve Disease Dyspnea Chest Pain Congestive Heart Failure RISK FACTORS Hypertension Hyperlipidemia Diabetes 2D DIMENSIONS RVDd 3.9 (2.9-3.5cm) Left Atrium(2D) 4.6 (1.6-4.0cm) IVSd 2.0 (0.7-1.1cm) Aortic Root(2D) 3.6 (2.0-3.7cm) LVDd 5.1 (3.9-5.9cm) LVOT Diameter 2.1 (1.8-2.4cm) PWd 1.6 (0.7-1.1cm) LVDs 3.6 (2.5-4.0cm) FS (%) 29.6 % SV 70.3 ml LVEF(%) 56.3 (>50%) Aortic Valve AoV Peak Dillon. 142.8cm/s AoV VTI 30.5cm AO Peak GR. 8.2mmHg LVOT Peak Dillon. 112.8cm/s LVOT VTI 23.98cm AO Mean GR. 4mmHg CHAD (VMAX) 2.03cm2 CHAD (VTI) 2.83cm2 Mitral Valve MV E Velocity 115.9cm/s MV E Peak Gr. 97mmHg MV DECEL TIME 180ms MV A Velocity 32.3cm/s MV PHT 52ms E/A Ratio 3.6 MVA (PHT) 4.23cm2 TDI E/Lateral E' 17.8 E/Medial E' 19.9 Pulmonary Valve PV Peak Velocity 73.3cm/s PV Peak Grad. 2mmHg Tricuspid Valve TR P. Velocity 323cm/s TR Peak Gr. 48mmHg LEFT VENTRICLE The left ventricle is normal size. There is moderate to severe concentric left ventricular hypertrophy. The left ventricular systolic function is normal and the ejection fraction is within normal range. The Ejection Fraction is 55%. There is normal LV segmental wall motion. Tissue Doppler imaging reveals moderate left ventricular diastolic dysfunction. RIGHT VENTRICLE The right ventricle is normal size. There is normal right ventricular wall thickness. The right ventricular systolic function is normal. ATRIA The left atrium is mildly dilated. The right atrium size is normal. The interatrial septum is intact with no evidence for an atrial septal defect or patent foramen ovale as noted on 2-D or Doppler imaging. AORTIC VALVE The aortic valve is thickened but opens well. Doppler and Color Flow revealed no significant aortic regurgitation. There is no significant aortic valvular stenosis. Calculated aortic valve area is 2.72 cm2 with maximum pressure gradient of 10 mmHg and mean pressure gradient of 5 mmHg. MITRAL VALVE The mitral valve is normal in structure and function. There is no evidence of mitral valve prolapse. There is no mitral valve stenosis. Doppler and Color-flow revealed moderate mitral regurgitation. TRICUSPID VALVE The tricuspid valve is normal in structure and function. Doppler and Color Flow revealed trace to mild tricuspid regurgitation with an estimated PAP of 51 mmHg. There is no tricuspid valve stenosis. PULMONIC VALVE The pulmonic valve is not well visualized. Doppler and Color Flow revealed trace pulmonic valvular regurgitation. There is no pulmonic valvular stenosis. GREAT VESSELS The aortic root is normal in size. The IVC is normal in size and collapses >50% with inspiration. PERICARDIAL EFFUSION There is a trace circumferential pericardial effusion. Critical Notification Critical Value: No <Conclusion> The left ventricular systolic function is normal and the ejection fraction is within normal range. The Ejection Fraction is 55%. There is moderate to severe concentric left ventricular hypertrophy. There is normal LV segmental wall motion. Doppler and Color-flow revealed moderate mitral regurgitation. Doppler and Color Flow revealed trace to mild tricuspid regurgitation with an estimated PAP of 51 mmHg. Signed by : Francisco Ramirez, Electronically Approved : 10/22/2020 16:19:29 DICTATED and SIGNED BY: FRANCISCO RAMIREZ MD DATE: 10/21/20 [id number] Laboratory Tests Test 10/28/20 12:21 10/28/20 12:35 10/28/20 13:26 10/28/20 14:15 Glucose (Fingerstick) 57 mg/dL (70-99) 62 mg/dL (70-99) 55 mg/dL (70-99) 57 mg/dL (70-99) Test 10/28/20 16:18 10/28/20 20:29 10/29/20 06:00 10/29/20 08:06 Glucose (Fingerstick) 88 mg/dL (70-99) 146 mg/dL (70-99) 71 mg/dL (70-99) White Blood Count 5.9 x10^3/uL (4.0-11.0) Red Blood Count 2.35 x10^6/uL (4.30-5.70) Hemoglobin 6.6 g/dL (13.0-17.5) Hematocrit 20.8 % (39.0-53.0) Mean Corpuscular Volume 89 fL (79-100) Mean Corpuscular Hemoglobin 28 pg (25-35) Mean Corpuscular Hemoglobin Concent 32 g/dL (31-37) Red Cell Distribution Width 15.5 % (11.5-14.5) Platelet Count 202 x10^3/uL (140-400) Neutrophils (%) (Auto) 72 % (31-73) Lymphocytes (%) (Auto) 16 % (24-48) Monocytes (%) (Auto) 8 % (0-9) Eosinophils (%) (Auto) 4 % (0-3) Basophils (%) (Auto) 1 % (0-3) Neutrophils # (Auto) 4.2 x10^3/uL (1.8-7.7) Lymphocytes # (Auto) 0.9 x10^3/uL (1.0-4.8) Monocytes # (Auto) 0.4 x10^3/uL (0.0-1.1) Eosinophils # (Auto) 0.2 x10^3/uL (0.0-0.7) Basophils # (Auto) 0.0 x10^3/uL (0.0-0.2) Sodium Level 135 mmol/L (136-145) Potassium Level 5.0 mmol/L (3.5-5.1) Chloride Level 105 mmol/L (98-107) Carbon Dioxide Level 23 mmol/L (21-32) Anion Gap 7 (6-14) Blood Urea Nitrogen 57 mg/dL (8-26) Creatinine 2.4 mg/dL (0.7-1.3) Estimated GFR (Cockcroft-Gault) 34.1 Glucose Level 87 mg/dL (70-99) Calcium Level 8.4 mg/dL (8.5-10.1) Assessment and Plan Assessmemt and Plan Problems Medical Problems: (1) Chest pain Status: Acute (2) CHF exacerbation Status: Acute (3) HTN (hypertension) Status: Acute (4) Person under investigation for COVID-19 Status: Acute Comment Review of Relevant I have reviewed the following items karissa (where applicable) has been applied. Labs Laboratory Tests Test 10/27/20 11:51 10/27/20 16:45 10/27/20 16:50 10/27/20 19:31 Glucose (Fingerstick) 147 mg/dL (70-99) 225 mg/dL (70-99) 164 mg/dL (70-99) O2 Saturation 93 % (92-99) Arterial Blood pH 7.35 (7.35-7.45) Arterial Blood pCO2 at Patient Temp 38 mmHg (35-46) Arterial Blood pO2 at Patient Temp 75 mmHg (75-108) Arterial Blood HCO3 20 mmol/L (21-28) Arterial Blood Base Excess -5 mmol/L (-3-3) Oxyhemoglobin 91.9 % Methemoglobin 0.5 % (0.0-1.9) Carbon Monoxide, Quantitative 0.8 % (0.0-1.9) FiO2 28% Test 10/28/20 05:00 10/28/20 07:10 10/28/20 08:33 10/28/20 12:21 Sodium Level 136 mmol/L (136-145) Potassium Level 4.6 mmol/L (3.5-5.1) Chloride Level 106 mmol/L (98-107) Carbon Dioxide Level 23 mmol/L (21-32) Anion Gap 7 (6-14) Blood Urea Nitrogen 62 mg/dL (8-26) Creatinine 2.5 mg/dL (0.7-1.3) Estimated GFR (Cockcroft-Gault) 32.5 BUN/Creatinine Ratio 25 (6-20) Glucose Level 94 mg/dL (70-99) Calcium Level 8.3 mg/dL (8.5-10.1) Total Bilirubin 0.3 mg/dL (0.2-1.0) Aspartate Amino Transf (AST/SGOT) 24 U/L (15-37) Alanine Aminotransferase (ALT/SGPT) 40 U/L (16-63) Alkaline Phosphatase 71 U/L (46-116) Total Protein 6.2 g/dL (6.4-8.2) Albumin 2.4 g/dL (3.4-5.0) Albumin/Globulin Ratio 0.6 (1.0-1.7) White Blood Count 5.4 x10^3/uL (4.0-11.0) Red Blood Count 2.22 x10^6/uL (4.30-5.70) Hemoglobin 6.4 g/dL (13.0-17.5) Hematocrit 19.9 % (39.0-53.0) Mean Corpuscular Volume 90 fL (79-100) Mean Corpuscular Hemoglobin 29 pg (25-35) Mean Corpuscular Hemoglobin Concent 32 g/dL (31-37) Red Cell Distribution Width 14.9 % (11.5-14.5) Platelet Count 219 x10^3/uL (140-400) Neutrophils (%) (Auto) 69 % (31-73) Lymphocytes (%) (Auto) 19 % (24-48) Monocytes (%) (Auto) 7 % (0-9) Eosinophils (%) (Auto) 4 % (0-3) Basophils (%) (Auto) 1 % (0-3) Neutrophils # (Auto) 3.7 x10^3/uL (1.8-7.7) Lymphocytes # (Auto) 1.0 x10^3/uL (1.0-4.8) Monocytes # (Auto) 0.4 x10^3/uL (0.0-1.1) Eosinophils # (Auto) 0.2 x10^3/uL (0.0-0.7) Basophils # (Auto) 0.1 x10^3/uL (0.0-0.2) Glucose (Fingerstick) 100 mg/dL (70-99) 57 mg/dL (70-99) Test 10/28/20 12:35 10/28/20 13:26 10/28/20 14:15 10/28/20 16:18 Glucose (Fingerstick) 62 mg/dL (70-99) 55 mg/dL (70-99) 57 mg/dL (70-99) 88 mg/dL (70-99) Test 10/28/20 20:29 10/29/20 06:00 10/29/20 08:06 Glucose (Fingerstick) 146 mg/dL (70-99) 71 mg/dL (70-99) White Blood Count 5.9 x10^3/uL (4.0-11.0) Red Blood Count 2.35 x10^6/uL (4.30-5.70) Hemoglobin 6.6 g/dL (13.0-17.5) Hematocrit 20.8 % (39.0-53.0) Mean Corpuscular Volume 89 fL (79-100) Mean Corpuscular Hemoglobin 28 pg (25-35) Mean Corpuscular Hemoglobin Concent 32 g/dL (31-37) Red Cell Distribution Width 15.5 % (11.5-14.5) Platelet Count 202 x10^3/uL (140-400) Neutrophils (%) (Auto) 72 % (31-73) Lymphocytes (%) (Auto) 16 % (24-48) Monocytes (%) (Auto) 8 % (0-9) Eosinophils (%) (Auto) 4 % (0-3) Basophils (%) (Auto) 1 % (0-3) Neutrophils # (Auto) 4.2 x10^3/uL (1.8-7.7) Lymphocytes # (Auto) 0.9 x10^3/uL (1.0-4.8) Monocytes # (Auto) 0.4 x10^3/uL (0.0-1.1) Eosinophils # (Auto) 0.2 x10^3/uL (0.0-0.7) Basophils # (Auto) 0.0 x10^3/uL (0.0-0.2) Sodium Level 135 mmol/L (136-145) Potassium Level 5.0 mmol/L (3.5-5.1) Chloride Level 105 mmol/L (98-107) Carbon Dioxide Level 23 mmol/L (21-32) Anion Gap 7 (6-14) Blood Urea Nitrogen 57 mg/dL (8-26) Creatinine 2.4 mg/dL (0.7-1.3) Estimated GFR (Cockcroft-Gault) 34.1 Glucose Level 87 mg/dL (70-99) Calcium Level 8.4 mg/dL (8.5-10.1) Laboratory Tests Test 10/28/20 12:21 10/28/20 12:35 10/28/20 13:26 10/28/20 14:15 Glucose (Fingerstick) 57 mg/dL (70-99) 62 mg/dL (70-99) 55 mg/dL (70-99) 57 mg/dL (70-99) Test 10/28/20 16:18 10/28/20 20:29 10/29/20 06:00 10/29/20 08:06 Glucose (Fingerstick) 88 mg/dL (70-99) 146 mg/dL (70-99) 71 mg/dL (70-99) White Blood Count 5.9 x10^3/uL (4.0-11.0) Red Blood Count 2.35 x10^6/uL (4.30-5.70) Hemoglobin 6.6 g/dL (13.0-17.5) Hematocrit 20.8 % (39.0-53.0) Mean Corpuscular Volume 89 fL (79-100) Mean Corpuscular Hemoglobin 28 pg (25-35) Mean Corpuscular Hemoglobin Concent 32 g/dL (31-37) Red Cell Distribution Width 15.5 % (11.5-14.5) Platelet Count 202 x10^3/uL (140-400) Neutrophils (%) (Auto) 72 % (31-73) Lymphocytes (%) (Auto) 16 % (24-48) Monocytes (%) (Auto) 8 % (0-9) Eosinophils (%) (Auto) 4 % (0-3) Basophils (%) (Auto) 1 % (0-3) Neutrophils # (Auto) 4.2 x10^3/uL (1.8-7.7) Lymphocytes # (Auto) 0.9 x10^3/uL (1.0-4.8) Monocytes # (Auto) 0.4 x10^3/uL (0.0-1.1) Eosinophils # (Auto) 0.2 x10^3/uL (0.0-0.7) Basophils # (Auto) 0.0 x10^3/uL (0.0-0.2) Sodium Level 135 mmol/L (136-145) Potassium Level 5.0 mmol/L (3.5-5.1) Chloride Level 105 mmol/L (98-107) Carbon Dioxide Level 23 mmol/L (21-32) Anion Gap 7 (6-14) Blood Urea Nitrogen 57 mg/dL (8-26) Creatinine 2.4 mg/dL (0.7-1.3) Estimated GFR (Cockcroft-Gault) 34.1 Glucose Level 87 mg/dL (70-99) Calcium Level 8.4 mg/dL (8.5-10.1) Microbiology 10/24/20 Urine Culture - Final, Complete Medications Current Medications Nitroglycerin (Nitro-Bid Oint) 1 inch 1X ONCE TP Last administered on 10/20/20at 13:22; Start 10/20/20 at 13:15; Stop 10/20/20 at 13:16; Status DC Morphine Sulfate (Morphine Sulfate) 4 mg 1X ONCE IV Last administered on 10/20/20at 13:23; Start 10/20/20 at 13:15; Stop 10/20/20 at 13:16; Status DC Furosemide (Lasix) 80 mg 1X ONCE IVP Last administered on 10/20/20at 16:25; Sta rt 10/20/20 at 15:45; Stop 10/20/20 at 15:46; Status DC Hydralazine HCl (Apresoline Inj) 10 mg PRN Q20MIN PRN IVP ELEVATED BP, SEE COMMENTS Last administered on 10/20/20at 16:28; Start 10/20/20 at 15:30 Furosemide (Lasix) 80 mg [id number] PO Last administered on 10/23/20at 08:11; Start 10/21/20 at 09:00; Stop 10/24/20 at 15:14; Status DC Insulin Human Lispro (HumaLOG) 0-9 UNITS TIDWMEALS SQ Last administered on 10/27/20at 08:17; Start 10/20/20 at 17:00 Dextrose (Dextrose 50%-Water Syringe) 12.5 gm PRN Q15MIN PRN IV SEE COMMENTS; Start 10/20/20 at 15:45 Ondansetron HCl (Zofran) 4 mg PRN Q6HRS PRN IVP NAUSEA/VOMITING Last administered on 10/22/20at 11:57; Start 10/20/20 at 16:15 Al Hydroxide/Mg Hydroxide (Mylanta Plus Xs) 30 ml PRN Q3HRS PRN PO HEARTBURN / GAS; Start 10/20/20 at 16:15 Calcium Carbonate/ Glycine (Tums) 500 mg PRN Q3HRS PRN PO UPSET STOMACH; Start 10/20/20 at 16:15 Zolpidem Tartrate (Ambien) 5 mg PRN QHS PRN PO INSOMNIA, MAY REPEAT IN 1HR Last administered on 10/20/20at 21:39; Start 10/20/20 at 16:15 Acetaminophen (Tylenol) 650 mg PRN Q6HRS PRN PO Headaches, Temp > 101.5F Last administered on 10/25/20at 14:19; Start 10/20/20 at 16:15 Magnesium Hydroxide (Milk Of Magnesia) 2,400 mg PRN Q12HR PRN PO CONSTIPATION Last administered on 10/22/20at 06:11; Start 10/20/20 at 16:15 Bisacodyl (Dulcolax Supp) 10 mg PRN DAILY PRN SC CONSTIPATION; Start 10/20/20 at 16:15 Heparin Sodium (Porcine) (Heparin Sodium) 5,000 unit Q8HRS SQ Last administered on 10/29/20at 05:59; Start 10/20/20 at 16:30; Stop 10/29/20 at 07:14; Status DC Morphine Sulfate (Morphine Sulfate) 4 mg PRN Q2HR PRN IV MODERATE TO SEVERE PAIN Last administered on 10/29/20 08:42; Start 10/20/20 at 16:30 Tramadol HCl (Ultram) 50 mg PRN Q6HRS PRN PO MILD TO MODERATE PAIN Last administered on 10/24/20 08:25; Start 10/20/20 at 16:30 Amlodipine Besylate (Norvasc) 10 mg DAILY PO Last administered on 10/29/20 08:43; Start 10/21/20 at 09:00 Aspirin (Aspirin Chewable) 81 mg [id number] PO Last administered on 10/28/20 09:57; Start 10/21/20 at 08:00 Clopidogrel Bisulfate (Plavix) 75 mg DAILY PO Last administered on 10/28/20 09:57; Start 10/21/20 at 09:00 Furosemide (Lasix) 80 mg BID92 PO Last administered on 10/21/20 08:54; Start 10/20/20 at 17:30; Stop 10/21/20 at 09:37; Status DC Pantoprazole Sodium (Protonix) 40 mg BIDAC PO Last administered on 10/29/20 05:57; Start 10/20/20 at 17:30 Senna/Docusate Sodium (Senna Plus) 2 tab PRN QEVNG PRN PO CONSTIPATION; Start 10/20/20 at 17:30 Spironolactone (Aldactone) 25 mg DAILY PO Last administered on 10/21/20 08:52; Start 10/21/20 at 09:00; Stop 10/21/20 at 14:06; Status DC Tamsulosin HCl (Flomax) 0.4 mg DAILY PO Last administered on 10/29/20 08:43; Start 10/21/20 at 09:00 Carvedilol (Coreg) 25 mg BIDWMEALS PO Last administered on 10/29/20 08:43; Start 10/20/20 at 17:30 Gabapentin (Neurontin) 300 mg TID PO Last administered on 10/29/20 08:43; Start 10/20/20 at 21:00 Hydralazine HCl (Apresoline) 100 mg TID PO Last administered on 10/29/20 08:44; Start 10/20/20 at 21:00 Insulin Human Lispro (HumaLOG) 30 units TIDWMEALS SQ Last administered on 10/28/20 10:02; Start 10/21/20 at 08:00 Insulin Glargine (Lantus Syringe) 60 unit QHS SQ Last administered on 10/22/20 21:17; Start 10/20/20 at 21:00; Stop 10/23/20 at 13:07; Status DC Isosorbide Dinitrate (Isordil) 5 mg TID PO Last administered on 10/29/20 08:44; Start 10/20/20 at 21:00 Atorvastatin Calcium (Lipitor) 80 mg QHS PO Last administered on 10/24/20 21:42; Start 10/20/20 at 21:00; Stop 10/25/20 at 13:42; Status DC Lorazepam (Ativan Inj) 1 mg PRN Q4HRS PRN IVP ANXIETY / AGITATION Last a dministered on 10/22/20 11:57; Start 10/20/20 at 17:30 Insulin Glargine (Lantus Syringe) 70 unit QHS SQ Last administered on 10/28/20 21:01; Start 10/23/20 at 21:00 Lidocaine (Lidoderm) 2 patch DAILY TD Last administered on 10/29/20 08:45; Start 10/24/20 at 09:00 Miscellaneous (Lidoderm Patch Removal) 1 ea QHS MC Last administered on 10/28/20 20:53; Start 10/24/20 at 21:00 Polysaccharide Iron Complex (Niferex 150) 150 mg DAILY PO Last administered on 10/29/20 08:43; Start 10/24/20 at 14:00 Sodium Chloride 1,000 ml @ 75 mls/hr [id number] ONCE IV ; Start 10/25/20 at 11:15; Stop 10/25/20 at 13:42; Status DC Sodium Chloride 1,000 ml @ 75 mls/hr [id number] IV Last administered on 10/28/20 20:48; Start 10/25/20 at 14:00 Duloxetine HCl (Cymbalta) 30 mg DAILY PO Last administered on 10/27/20 08:03; Start 10/25/20 at 15:00; Stop 10/27/20 at 13:33; Status DC Lactulose (Lactulose) 20 gm 1X ONCE PO Last administered on 10/26/20at 12:47; Start 10/26/20 at 10:30; Stop 10/26/20 at 10:31; Status DC Lactulose (Lactulose) 20 gm 1X ONCE PO Last administered on 10/26/20at 12:47; Start 10/26/20 at 10:30; Stop 10/26/20 at 10:31; Status DC Duloxetine HCl (Cymbalta) 60 mg DAILY PO Last administered on 10/29/20at 08:43; Start 10/28/20 at 09:00 Active Scripts Active Flomax (Tamsulosin Hcl) 0.4 Mg Cap.er.24h 0.4 Mg PO DAILY Children's Aspirin (Aspirin) 81 Mg Tab.chew 81 Mg PO [id number] Reported Senna-Docusate Sodium Tablet (Sennosides/Docusate Sodium) 1 Each Tablet 2 Tab PO PRN QEVNG PRN 5 Days Spironolactone 25 Mg Tablet 25 Mg PO DAILY Vitamin D2 (Ergocalciferol (Vitamin D2)) 1,250 Mcg Capsule 1,250 Mcg PO WEEKLY Lasix (Furosemide) 80 Mg Tablet 80 Mg PO BID Clopidogrel (Clopidogrel Bisulfate) 75 Mg Tablet 75 Mg PO DAILY Carvedilol 25 Mg Tablet 25 Mg PO BIDWMEALS Isosorbide Dinitrate 40 Mg Tablet.er 5 Mg PO TID Gabapentin 600 Mg Tablet 300 Mg PO TID Protonix (Pantoprazole Sodium) 40 Mg Tablet.dr 40 Mg PO BID Hydralazine Hcl 100 Mg Tablet 100 Mg PO TID Amlodipine Besylate 10 Mg Tablet 10 Mg PO DAILY Crestor (Rosuvastatin Calcium) 20 Mg Tablet 20 Mg PO QHS Levemir Flexpen (Insulin Detemir) 100 Unit/1 Ml Insuln.pen 60 Unit SQ HS Novolog Flexpen (Insulin Aspart) 100 Unit/1 Ml Insuln.pen 30 Unit SQ TIDAC Vitals/I & O Vital Sign - Last 24 Hours 10/28/20 10/28/20 10/28/20 10/28/20 11:41 11:56 12:41 13:28 Temp 97.8 97.2 97.4 97.8 97.2 97.4 Pulse 63 71 67 63 Resp 14 14 16 B/P (MAP) 131/54 131/51 121/40 131/54 10/28/20 10/28/20 10/28/20 10/28/20 13:29 13:30 14:00 14:05 Temp 97.4 97.4 Pulse 63 65 Resp 20 B/P (MAP) 131/54 121/40 (67) Pulse Ox 100 93 O2 Delivery Nasal Cannula Room Air Room Air O2 Flow Rate 2.0 10/28/20 10/28/20 10/28/20 10/28/20 17:09 19:32 20:05 20:47 Temp 97.4 97.4 Pulse 65 69 69 Resp 21 B/P (MAP) 121/40 142/67 (92) 142/67 Pulse Ox 96 O2 Delivery Room Air Nasal Cannula O2 Flow Rate 2.0 10/28/20 10/28/20 10/28/20 10/28/20 20:47 21:06 21:26 21:36 Pulse 69 Resp 20 20 B/P (MAP) 142/67 Pulse Ox 96 91 91 O2 Delivery Nasal Cannula Room Air Nasal Cannula O2 Flow Rate 2.0 2.0 10/28/20 10/29/20 10/29/20 10/29/20 22:55 02:34 02:41 03:11 Temp 97.4 97.6 97.4 97.6 Pulse 63 56 Resp 21 21 20 20 B/P (MAP) 134/56 (82) 135/62 (86) Pulse Ox 96 97 97 97 O2 Delivery Room Air Room Air Nasal Cannula Nasal Cannula O2 Flow Rate 2.0 2.0 10/29/20 10/29/20 10/29/20 10/29/20 06:08 06:38 07:00 07:45 Temp 97.5 97.5 Pulse 58 Resp 20 20 21 B/P (MAP) 134/61 (85) Pulse Ox 97 97 97 O2 Delivery Nasal Cannula Nasal Cannula Room Air Nasal Cannula O2 Flow Rate 2.0 2.0 2.0 10/29/20 10/29/20 10/29/20 10/29/20 08:42 08:43 08:43 08:44 Pulse 60 56 56 Resp 16 B/P (MAP) 135/62 135/62 135/62 O2 Delivery Room Air 10/29/20 08:44 Pulse 56 B/P (MAP) 135/62 Intake and Output 10/28/20 10/28/20 10/29/20 15:00 23:00 07:00 Intake Total 735 ml 1800 ml 0 ml Output Total 900 ml 450 ml Balance 735 ml 900 ml -450 ml Justicifation of Admission Dx: Justifications for Admission: Justification of Admission Dx: N/A CHANELL ALBERTS MD Oct 29, 2020 10:53
--- NOTE | 2020-10-29 11:00 | PDOC ---
DATE OF SERVICE DATE: 10/29/20 TIME: 11:00 SUBJECTIVE ROS every day states he is not doing too good OBJECTIVE Vital Signs Vital Signs Date Time Temp Pulse Resp B/P (MAP) Pulse Ox O2 Delivery O2 Flow Rate FiO2 10/29/20 10:52 97.5 60 16 146/53 97.5 10/29/20 08:42 Room Air 10/29/20 07:45 2.0 10/29/20 07:00 97 I & 0 Intake and Output 10/29/20 07:00 Intake Total 2535 ml Output Total 1350 ml Balance 1185 ml Intake Oral 1520 ml IV Total 1000 ml Blood Product IV Normal Saline Flush 15 ml Output Urine Total 1350 ml PHYSICAL EXAM Physical Exam General: Alert, Oriented X3, Cooperative, No acute distress HEENT: Atraumatic, Mucous membr. moist/pin, On o2 by NC Neck supple Lungs: Decreased at bases, Non labored Heart: distant heart sounds Abdomen: Soft, Morbidly obese Extremities: LE edema + Skin: No breakdown, No significant lesion Neuro: Normal speech, Sensation intact. Unable to move EDELMIRA Alvarez in place DIAGNOSIS/ASSESSMENT Assessment & Plan MARQUISE on CKD- ATN ,Overdiuresis , NonOliguric, Renal function improved with IVF Supportive care, Lasix held since saturday ,, avoid nephrotoxins, Strict I/O , Monitor Labs QD . DC IVF, encourage PO intake Anemia- Hgb decreasing Receiving PRBC, was Fe deficient , SPEP No M spike, GI consulted Mildly Elevated CK- Improving. statin held . Restart per cardiology with adrianne toring CKD stage 3 B- Seen by DISPATCH CLERK in our practice . Cr was at his baseline at Presentation to [facility] Generalized weakness- netta LE Neuro consulted,unrelated to Renal failure Ac Resp failure - Stable on O2 by NC, Cxr No e/o pulm Congestion , Morbidly Obese, ROXANEN, COPD Acute on chronic diastolic CHF: due to noncompliance and continued cocaine use. CxR unremarkable AECOPD with continued tobaccoism ROXANNE: uses CPAP at home Substance abuse: uses cocaine HTN urgency: improved PAD: prior bypass, clinically stable COMMENT/RELEVANT DATA Meds Current Medications Medications (Trade) Dose Ordered Sig/Kiera Start Time Stop Time Status Last Admin Dose Admin Acetaminophen (Tylenol) 650 mg PRN Q6HRS PRN 10/20/20 16:15 10/25/20 14:19 650 MG Al Hydroxide/Mg Hydroxide (Mylanta Plus Xs) 30 ml PRN Q3HRS PRN 10/20/20 16:15 Amlodipine Besylate (Norvasc) 10 mg DAILY 10/21/20 09:00 10/29/20 08:43 10 MG Aspirin (Aspirin Chewable) 81 mg [id number] 10/21/20 08:00 10/28/20 09:57 81 MG Atorvastatin Calcium (Lipitor) 80 mg QHS 10/20/20 21:00 10/25/20 13:42 DC 10/24/20 21:42 80 MG Bisacodyl (Dulcolax Supp) 10 mg PRN DAILY PRN 10/20/20 16:15 Calcium Carbonate/ Glycine (Tums) 500 mg PRN Q3HRS PRN 10/20/20 16:15 Carvedilol (Coreg) 25 mg BIDWMEALS 10/20/20 17:30 10/29/20 08:43 25 MG Clopidogrel Bisulfate (Plavix) 75 mg DAILY 10/21/20 09:00 10/28/20 09:57 75 MG Dextrose (Dextrose 50%-Water Syringe) 12.5 gm PRN Q15MIN PRN 10/20/20 15:45 Duloxetine HCl (Cymbalta) 60 mg DAILY 10/28/20 09:00 10/29/20 08:43 60 MG Furosemide (Lasix) 80 mg BID92 10/20/20 17:30 10/21/20 09:37 DC 10/21/20 08:54 80 MG Gabapentin (Neurontin) 300 mg TID 10/20/20 21:00 10/29/20 08:43 300 MG Heparin Sodium (Porcine) (Heparin Sodium) 5,000 unit Q8HRS 10/20/20 16:30 10/29/20 07:14 DC 10/29/20 05:59 5,000 UNIT Hydralazine HCl (Apresoline Inj) 10 mg PRN Q20MIN PRN 10/20/20 15:30 10/20/20 16:28 10 MG Hydralazine HCl (Apresoline) 100 mg TID 10/20/20 21:00 10/29/20 08:44 100 MG Insulin Glargine (Lantus Syringe) 70 unit QHS 10/23/20 21:00 10/28/20 21:01 70 UNIT Insulin Human Lispro (HumaLOG) 30 units TIDWMEALS 10/21/20 08:00 10/28/20 10:02 30 UNITS Isosorbide Dinitrate (Isordil) 5 mg TID 10/20/20 21:00 10/29/20 08:44 5 MG Lactulose (Lactulose) 20 gm 1X ONCE 10/26/20 10:30 10/26/20 10:31 DC 10/26/20 12:47 20 GM Lidocaine (Lidoderm) 2 patch DAILY 10/24/20 09:00 10/29/20 08:45 2 PATCH Lorazepam (Ativan Inj) 1 mg PRN Q4HRS PRN 10/20/20 17:30 10/22/20 11:57 1 MG Magnesium Hydroxide (Milk Of Magnesia) 2,400 mg PRN Q12HR PRN 10/20/20 16:15 10/22/20 06:11 2,400 MG Miscellaneous (Lidoderm Patch Removal) 1 ea QHS 10/24/20 21:00 10/28/20 20:53 1 EA Morphine Sulfate (Morphine Sulfate) 4 mg PRN Q2HR PRN 10/20/20 16:30 10/29/20 08:42 4 MG Nitroglycerin (Nitro-Bid Oint) 1 inch 1X ONCE 10/20/20 13:15 10/20/20 13:16 DC 10/20/20 13:22 1 INCH Ondansetron HCl (Zofran) 4 mg PRN Q6HRS PRN 10/20/20 16:15 10/22/20 11:57 4 MG Pantoprazole Sodium (Protonix) 40 mg BIDAC 10/20/20 17:30 10/29/20 05:57 40 MG Polysaccharide Iron Complex (Niferex 150) 150 mg DAILY 10/24/20 14:00 10/29/20 08:43 150 MG Senna/Docusate Sodium (Senna Plus) 2 tab PRN QEVNG PRN 10/20/20 17:30 Sodium Chloride 1,000 ml @ 75 mls/hr [id number] 10/25/20 14:00 10/28/20 20:48 75 MLS/HR Spironolactone (Aldactone) 25 mg DAILY 10/21/20 09:00 10/21/20 14:06 DC 10/21/20 08:52 25 MG Tamsulosin HCl (Flomax) 0.4 mg DAILY 10/21/20 09:00 10/29/20 08:43 0.4 MG Tramadol HCl (Ultram) 50 mg PRN Q6HRS PRN 10/20/20 16:30 10/24/20 08:25 50 MG Zolpidem Tartrate (Ambien) 5 mg PRN QHS PRN 10/20/20 16:15 10/20/20 21:39 5 MG Lab Laboratory Tests Test 10/28/20 12:21 10/28/20 12:35 10/28/20 13:26 10/28/20 14:15 Glucose (Fingerstick) 57 mg/dL (70-99) 62 mg/dL (70-99) 55 mg/dL (70-99) 57 mg/dL (70-99) Test 10/28/20 16:18 10/28/20 20:29 10/29/20 06:00 10/29/20 08:06 Glucose (Fingerstick) 88 mg/dL (70-99) 146 mg/dL (70-99) 71 mg/dL (70-99) White Blood Count 5.9 x10^3/uL (4.0-11.0) Red Blood Count 2.35 x10^6/uL (4.30-5.70) Hemoglobin 6.6 g/dL (13.0-17.5) Hematocrit 20.8 % (39.0-53.0) Mean Corpuscular Volume 89 fL (79-100) Mean Corpuscular Hemoglobin 28 pg (25-35) Mean Corpuscular Hemoglobin Concent 32 g/dL (31-37) Red Cell Distribution Width 15.5 % (11.5-14.5) Platelet Count 202 x10^3/uL (140-400) Neutrophils (%) (Auto) 72 % (31-73) Lymphocytes (%) (Auto) 16 % (24-48) Monocytes (%) (Auto) 8 % (0-9) Eosinophils (%) (Auto) 4 % (0-3) Basophils (%) (Auto) 1 % (0-3) Neutrophils # (Auto) 4.2 x10^3/uL (1.8-7.7) Lymphocytes # (Auto) 0.9 x10^3/uL (1.0-4.8) Monocytes # (Auto) 0.4 x10^3/uL (0.0-1.1) Eosinophils # (Auto) 0.2 x10^3/uL (0.0-0.7) Basophils # (Auto) 0.0 x10^3/uL (0.0-0.2) Sodium Level 135 mmol/L (136-145) Potassium Level 5.0 mmol/L (3.5-5.1) Chloride Level 105 mmol/L (98-107) Carbon Dioxide Level 23 mmol/L (21-32) Anion Gap 7 (6-14) Blood Urea Nitrogen 57 mg/dL (8-26) Creatinine 2.4 mg/dL (0.7-1.3) Estimated GFR (Cockcroft-Gault) 34.1 Glucose Level 87 mg/dL (70-99) Calcium Level 8.4 mg/dL (8.5-10.1) Results All relevant outside records, renal labs, imaging studies, telemetry/EKG's were reviewed. Justicifation of Admission Dx: Justifications for Admission: Justification of Admission Dx: N/A NATASHA MCDONALD MD Oct 29, 2020 11:00
[2020-10-29] MEDS: IV NORMAL SALINE 1000ML BAG 1,000 ML IV SCH (11:20)
--- NOTE | 2020-10-29 13:36 | PDOC2 ---
GI CONSULT Date of Service: DATE: 10/29/20 TIME: : Reason For Consult: CORY HPI: HPI: 55 y/o male admitted for exacerbation of CHF; known h/o hypertensive cardiomy opathy and diastolic CHF. Noted to be anemic at admission, then drop in hemoglobin. He denies any obvious bleeding or abdominal pain. Remains on daily med for GERD (PPI?). No dysphagia. No h/o PUD. EGD in 2013 with maybe m\\inor esophagitis. H/o abnormal HIDA/GBEF--still has gallbladder. No liver history. H/o "pancreatitis" of uncertain cause. Smokes occasionally. Occasional alcohol. Denies D, C, H, M. No signs of weight loss. Appetite OK. No N, V. GIFH negative. No colonoscopy. Still occasional cocaine user and known non-compliance. PMH: PMH: HTN, CVA, neuropathy, CAD, Afib, HLP, COPD, ROXANNE, DM, BPH, PVD. No Surgical history. FH: Family History: Cancer Social History: Smoke: <1 pack per day ALCOHOL: occassional Drugs: Cocaine ROS: GEN: Denies fevers, chills, sweats HEENT: Denies blurred vision, sore throat CV: Denies chest pain RESP: Denies shortness of air, cough GI: Per HPI : Denies hematuria, dysuria ENDO: Denies weight changes NEURO: Denies confusion, dizziness MSK: Denies weakness, joint pain/swelling SKIN: Denies jaundice, pruritus Vitals: Vitals: Vital Signs Date Time Temp Pulse Resp B/P (MAP) Pulse Ox O2 Delivery O2 Flow Rate FiO2 10/29/20 11:08 97.6 57 16 132/63 97.6 10/29/20 09:12 97 Nasal Cannula 2.0 Labs: Labs: Laboratory Tests Test 10/28/20 13:26 10/28/20 14:15 10/28/20 16:18 10/28/20 20:29 Glucose (Fingerstick) 55 mg/dL (70-99) 57 mg/dL (70-99) 88 mg/dL (70-99) 146 mg/dL (70-99) Test 10/29/20 06:00 10/29/20 08:06 10/29/20 11:55 White Blood Count 5.9 x10^3/uL (4.0-11.0) Red Blood Count 2.35 x10^6/uL (4.30-5.70) Hemoglobin 6.6 g/dL (13.0-17.5) Hematocrit 20.8 % (39.0-53.0) Mean Corpuscular Volume 89 fL (79-100) Mean Corpuscular Hemoglobin 28 pg (25-35) Mean Corpuscular Hemoglobin Concent 32 g/dL (31-37) Red Cell Distribution Width 15.5 % (11.5-14.5) Platelet Count 202 x10^3/uL (140-400) Neutrophils (%) (Auto) 72 % (31-73) Lymphocytes (%) (Auto) 16 % (24-48) Monocytes (%) (Auto) 8 % (0-9) Eosinophils (%) (Auto) 4 % (0-3) Basophils (%) (Auto) 1 % (0-3) Neutrophils # (Auto) 4.2 x10^3/uL (1.8-7.7) Lymphocytes # (Auto) 0.9 x10^3/uL (1.0-4.8) Monocytes # (Auto) 0.4 x10^3/uL (0.0-1.1) Eosinophils # (Auto) 0.2 x10^3/uL (0.0-0.7) Basophils # (Auto) 0.0 x10^3/uL (0.0-0.2) Sodium Level 135 mmol/L (136-145) Potassium Level 5.0 mmol/L (3.5-5.1) Chloride Level 105 mmol/L (98-107) Carbon Dioxide Level 23 mmol/L (21-32) Anion Gap 7 (6-14) Blood Urea Nitrogen 57 mg/dL (8-26) Creatinine 2.4 mg/dL (0.7-1.3) Estimated GFR (Cockcroft-Gault) 34.1 Glucose Level 87 mg/dL (70-99) Calcium Level 8.4 mg/dL (8.5-10.1) Glucose (Fingerstick) 71 mg/dL (70-99) 88 mg/dL (70-99) Abnormal iron studies. Allergies: Coded Allergies: Sulfa (Sulfonamide Antibiotics) (Verified Allergy, Intermediate, Rash, 08/05/16) Imaging: Imaging: CT pending. PE: GEN: NAD, obese HEENT: Atraumatic, PERRLA LUNGS: CTAB anteriorly HEART: RRR, no murmurs ABD: NABS, S/ND/NT, no masses EXTREMITY: Trace pretibial edema SKIN: No rashes, no jaundice NEURO/PSYCH: A & O 3, no focal findings. A/P: A/P: IMP: CORY, cause uncertain. Drop in hemoglobin w/o overt bleeding. Retroperitoneal hematoma seems unlikely w/o pain, but maybe. GERD, supposedly on PPI. REC: PO iron if will take/tolerate. Continue PPI. Could consider outpatient 'scopes. Continue treating CHF. MARTINA MOREIRA MD Oct 29, 2020 13:36
--- NOTE | 2020-10-29 18:23 | NUR ---
Pt normal saline held during blood transfusion. Resumed at 14:15. At 1600 pt asked to put his bipap on he was getting tired and feeling just a little more short of breath. O2 sats were greater than 94% on the 2l and he was not breathing any faster. IV fluids stopped at this time. Will reevaluate at a later time. Pt blood sugar 64. Pt refuses IV dextrose. CT said it would be late this evening before they could get him in. Gave patient a couple sips of apple juice at this time. Will reevalute blood sugar in 10-15 minutes. Pt resting comfortable at this time. Will continue to monitor and follow plan of care.
[2020-10-29 19:01] LABS: BARBITURATES NEG (NEG); BENZODIAZEPINES NEG (NEG); CANNABINOIDS NEG (NEG); COCAINE POS (NEG); METHADONE NEG (NEG); OPIATES POS (NEG); PHENCYCLIDINE POS (NEG)
[2020-10-29 19:07] LABS: AMPHETAMINE/METHAMPHETAMINE NEG (NEG)
[2020-10-29] MEDS: PATCH REMOVAL. MC SCH (20:35)
[2020-10-29] MEDS: INSULIN GLARGINE SYRINGE. SQ SCH (20:36)
[2020-10-30] MEDS: IV NORMAL SALINE 1000ML BAG 1,000 ML IV SCH ×2 (00:32→13:19)
[2020-10-30] MEDS: MORPHINE SULFATE 4 MG/ML VIAL. IV PRN ×4 (00:48→19:14)
--- NOTE | 2020-10-30 01:33 | RAD ---
CT scan of the abdomen and pelvis without contrast 10/29/2020 CLINICAL HISTORY: Anemia. TECHNIQUE: Unenhanced, contiguous, 5 mm axial sections were obtained through the abdomen and pelvis. One or more of the following individualized dose reduction techniques were utilized for this study: 1. Automated exposure control. 2. Adjustment of the mA and/or kV according to patient size. 3. Use of iterative reconstruction technique. FINDINGS: Comparison study is dated 02/21/2016. Images through the lung bases demonstrate mild cardiomegaly. Dependent atelectasis and/or infiltrate is seen involving both lower lobes. There are small bilateral pleural effusions, right greater than l eft. The liver, spleen, pancreas, adrenal glands and kidneys are within normal limits. Atherosclerotic calcification of the abdominal aorta and its branches is seen. The abdominal aorta ta pers normally. The gallbladder is contracted. A very small amount of free fluid is seen surrounding t he liver. There is no evidence of bowel obstruction. No free air is seen. The appendix is well-visual ized and is within normal limits. No retroperitoneal hematoma is noted. Images through the pelvis demonstrate a Alvarez catheter within the urinary bladder which is contracted . No free fluid is seen. Minimal S-shaped curvature of the thoracolumbar spine is noted. Degenerative changes are seen involving the lower thoracic and throughout the lumbar spine along with both hips. IMPRESSION: 1. Cardiomegaly with small bilateral pleural effusions, right greater than left. Dependent atelectasi s and/or infiltrate is seen. 2. . Very small amount of ascites is seen surrounding the liver. Electronically signed by: Siva Payan MD (10/30/2020 1:30 AM) [place] [id number]
[2020-10-30 02:58] VITALS: BP 146/61
[2020-10-30 07:00] VITALS: BP 149/66
[2020-10-30 07:21] LABS: BASO % 1 % (0-3); EOS # 0.2 x10^3/uL (0.0-0.7); EOS % 4 % (0-3); HEMATOCRIT 24.4 % (39.0-53.0); HEMOGLOBIN 7.8 g/dL (13.0-17.5); LYMPH # 0.9 x10^3/uL (1.0-4.8); LYMPH % 15 % (24-48); MEAN CORPUSCULAR HEMOGLOBIN 29 pg (25-35); MEAN CORPUSCULAR HGB CONC 32 g/dL (31-37); MEAN CORPUSCULAR VOLUME 89 fL (79-100); MONO # 0.4 x10^3/uL (0.0-1.1); MONO % 7 % (0-9); NEUT # 4.3 x10^3/uL (1.8-7.7); NEUT % 73 % (31-73); PLATELET COUNT 226 x10^3/uL (140-400); RED BLOOD COUNT 2.75 x10^6/uL (4.30-5.70); RED CELL DISTRIBUTION WIDTH 15.3 % (11.5-14.5)
[2020-10-30 07:40] LABS: ALBUMIN 2.4 g/dL (3.4-5.0); ALBUMIN/GLOBULIN RATIO 0.6 (1.0-1.7); CALCIUM 8.6 mg/dL (8.5-10.1); CREATININE 2.2 mg/dL (0.7-1.3); GFR 37.7; POTASSIUM 4.6 mmol/L (3.5-5.1); TOTAL BILIRUBIN 0.4 mg/dL (0.2-1.0); TOTAL PROTEIN 6.4 g/dL (6.4-8.2)
[2020-10-30] MEDS: ASPIRIN CHEWABLE 81 MG TABLET. PO SCH (08:00)
[2020-10-30] MEDS: INSULIN LISPRO 300 UNITS/3 ML VIAL. SQ SCH ×6 (08:00→17:00)
[2020-10-30] MEDS: IRON POLYSACCHARIDE COMPLEX 150 MG CAPSULE PO SCH (08:42)
[2020-10-30] MEDS: PANTOPRAZOLE 40 MG TABLET.DR. PO SCH ×2 (08:42→18:12)
[2020-10-30] MEDS: DULoxetine HCL 30 MG CAPSULE.DR PO SCH (08:42)
[2020-10-30] MEDS: amLODIPine BESYLATE 10 MG TABLET PO SCH (08:42)
[2020-10-30] MEDS: TAMSULOSIN 0.4 MG CAP.ER.24H. PO SCH (08:42)
[2020-10-30] MEDS: GABAPENTIN 300 MG CAPSULE. PO SCH ×3 (08:42→19:59)
[2020-10-30] MEDS: LIDOCAINE (700MG/PATCH) PATCH. TD SCH (08:43)
[2020-10-30] MEDS: ISOSORBIDE DINITRATE 10 MG TABLET. PO SCH ×3 (08:43→20:00)
[2020-10-30] MEDS: CARVEDILOL 12.5 MG TABLET. PO SCH ×2 (08:43→18:12)
[2020-10-30] MEDS: CLOPIDOGREL BISULFATE 75 MG TABLET PO SCH (08:44)
[2020-10-30 09:46] LABS: BILIRUBIN,URINE NEGATIVE (NEG); CLARITY,URINE CLEAR; COLOR,URINE YELLOW; NITRITE,URINE NEGATIVE (NEG); PROTEIN,URINE 30 mg/dL (NEG-TRACE); UROBILINOGEN,URINE 0.2 mg/dL (0.2 mg/dL)
--- NOTE | 2020-10-30 10:46 | PDOC ---
PROGRESS NOTES Date of Service: DATE: 10/30/20 TIME: 10:45 Chief Complaint Chief Complaint impression Acute respiratory failure with hypoxia Acute diastolic heart failure (CHF) aortic stenosis Elevated brain natriuretic peptide (BNP) level Pulmonary HTN , severe due to cocaine abuse CKD Normocytic anemia Hypertensive urgency moderate mitral regurgitation. Right breast mass Malnutrition normocytic anemia CKD stage 3 B- Seen by [facility] renal . Cr was at his baseline at Presentation to [facility] Peripheral neuropathy, most likely from diabetes exacerbated by acute metabolic issues including anemia and renal failure. Consider acute inflammatory demyelinating neuropathy, 2-11 remains SOA, using bipap at hs poor prognosis due to cocaine abuse 2-12 possibility of visiting with the Pulmonary Hypertension Clinic at [facility]. HE HAS NOT FOLLOWED UP, may benefit from hospice if remains noncompliant and continues cocaine usage 2-13 transfused today will consult GI ? EGD, AM LABS, IV PROTONIX 10-30 pos urine drug screen for cocaine ,, ct penis, cardiac cath in am mod penile edema 28 MIN pt exam, chart review, > 50% of time spent with exam, chart review, pt care coordination History of Present Illness History of Present Illness 10-30 CATH IN AM,, moderate penile edema, perhaps related to ascites, will obtain ct penis and scrotum 10-29 remains anemic after one unit, consulted GI , NPO possible PUD , CT ABD, PELVIS 10-28 cr 2.5, transfused, D/W RN, AM CBC 2- remains SOA, using cpap at hs poor prognosis due to cocaine abuse, abg today 2-10 Peripheral neuropathy, most likely from diabetes rule out other causes, exacerbated by acute metabolic issues including anemia and renal failure. Consider acute inflammatory demyelinating neuropathy, D/W RN 10/25 - Pt is in moderate distress, states he is profoundly weak and is eager to get to the bottom on this problem. Discussed his continue compliance with cpap machine. Mr Moreira is a 54yo M w/ PMHx Diabetes-Type II, High Cholesterol, Hypertension, Pancreatitis, CKD 4, presents to the ER with complaint of worsening shortness of breath of the past 3 days. He reports associated int ermittent chest pain and bilateral lower extremity swelling. States his symptoms are worse with exertion. Upon arrival in the ED his BNP was 3029. He was placed on BiPAP given IV morphine with improvement of symptoms. States he has not taken any of his home medications today. He does report a tender lump in his right breast for the past 3 weeks, reports a family history of breast cancer. He denies any fever, sick contacts, or known COVID-19 exposure. Will admit patient for further medical management. 10/21: Patient seen and evaluated. Improved on BiPAP overnight. Afebrile, denies chest pain. Blood pressure better controlled. CBG 323 this morning. Of note patient did order two trays of nondiabetic meals, and had fried chicken delivered to his room last night. Discussed importance of cardiac and diabetic diet for his heart health. Continue to diurese with Lasix. Echocardiogram and ultrasound right breast pending. If appropriately diuresed and no concerning findings on right breast ultrasound, Vitals Vitals Vital Signs Date Time Temp Pulse Resp B/P (MAP) Pulse Ox O2 Delivery O2 Flow Rate FiO2 10/30/20 08:43 63 149/66 10/30/20 07:40 Nasal Cannula 2.0 10/30/20 07:00 97.5 22 95 97.5 Physical Exam Physical Exam Distant S1 and S2 noted on exam. Moderate expiratory wheezes noted on lung exam. Screen Maker strength is symmetrical and 4/4. General: Alert, Oriented X3, Cooperative, No acute distress Heart: Regular rate, No murmurs, Other Lungs: Clear, Wheezing, Crackles Abdomen: Soft, No hepatosplenomegaly, Other (MODERATE PENILE SWELLING WITH LUI) Extremities: No cyanosis, Other Skin: No breakdown, No significant lesion Labs LABS PATIENT: HAILEY MOREIRA ACCOUNT: [id number] : 1965 LOCATION: [address] [place] [address] AGE: 55 SEX: M EXAM STATUS: ADM IN ORD. PHYSICIAN: CHANELL ALBERTS MD REASON: ANEMIA, BLOOD TRANSFUCION @ 1200 PROCEDURE: CT ABDOMEN PELVIS WO CONTRAST CT scan of the abdomen and pelvis without contrast 10/29/2020 CLINICAL HISTORY: Anemia. TECHNIQUE: Unenhanced, contiguous, 5 mm axial sections were obtained through the abdomen and pelvis. One or more of the following individualized dose reduction techniques were utilized for this study: 1. Automated exposure control. 2. Adjustment of the mA and/or kV according to patient size. 3. Use of iterative reconstruction technique. FINDINGS: Comparison study is dated 02/21/2016. Images through the lung bases demonstrate mild cardiomegaly. Dependent atelectasis and/or infiltrate is seen involving both lower lobes. There are small bilateral pleural effusions, right greater than left. The liver, spleen, pancreas, adrenal glands and kidneys are within normal limits. Atherosclerotic calcification of the abdominal aorta and its branches is seen. The abdominal aorta tapers normally. The gallbladder is contracted. A very small amount of free fluid is seen surrounding the liver. There is no evidence of bowel obstruction. No free air is seen. The appendix is well-visualized and is within normal limits. No retroperitoneal hematoma is noted. Images through the pelvis demonstrate a Lui catheter within the urinary bladder which is contracted. No free fluid is seen. Minimal S-shaped curvature of the thoracolumbar spine is noted. Degenerative changes are seen involving the lower thoracic and throughout the lumbar spine along with both hips. IMPRESSION: 1. Cardiomegaly with small bilateral pleural effusions, right greater than left. Dependent atelectasis and/or infiltrate is seen. 2. . Very small amount of ascites is seen surrounding the liver. Electronically signed by: Siva Payan MD (10/30/2020 1:30 AM) [id number] DICTATED and SIGNED BY: SIVA PAYAN MD DATE: 10/30/20 [id number] PATIENT: HAILEY MOREIRA ACCOUNT: [id number] : 1965 LOCATION: [address] [place] [address] AGE: 55 SEX: M EXAM STATUS: ADM IN ORD. PHYSICIAN: CHANELL ALBERTS MD REASON: ANEMIA, BLOOD TRANSFUCION @ 1200 PROCEDURE: CT ABDOMEN PELVIS WO CONTRAST CT scan of the abdomen and pelvis without contrast 10/29/2020 CLINICAL HISTORY: Anemia. TECHNIQUE: Unenhanced, contiguous, 5 mm axial sections were obtained through the abdomen and pelvis. One or more of the following individualized dose reduction techniques were utilized for this study: 1. Automated exposure control. 2. Adjustment of the mA and/or kV according to patient size. 3. Use of iterative reconstruction technique. FINDINGS: Comparison study is dated 02/21/2016. Images through the lung bases demonstrate mild cardiomegaly. Dependent atelectasis and/or infiltrate is seen involving both lower lobes. There are small bilateral pleural effusions, right greater than left. The liver, spleen, pancreas, adrenal glands and kidneys are within normal limits. Atherosclerotic calcification of the abdominal aorta and its branches is seen. The abdominal aorta tapers normally. The gallbladder is contracted. A very small amount of free fluid is seen surrounding the liver. There is no evidence of bowel obstruction. No free air is seen. The appendix is well-visualized and is within normal limits. No retroperitoneal hematoma is noted. Images through the pelvis demonstrate a Lui catheter within the urinary bladder which is contracted. No free fluid is seen. Minimal S-shaped curvature of the thoracolumbar spine is noted. Degenerative changes are seen involving the lower thoracic and throughout the lumbar spine along with both hips. IMPRESSION: 1. Cardiomegaly with small bilateral pleural effusions, right greater than left. Dependent atelectasis and/or infiltrate is seen. 2. . Very small amount of ascites is seen surrounding the liver. Electronically signed by: Siva Payan MD (10/30/2020 1:30 AM) [id number] DICTATED and SIGNED BY: SIVA PAYAN MD DATE: 10/30/20 [id number] Laboratory Tests Test 10/29/20 11:55 10/29/20 16:07 10/29/20 18:09 10/29/20 21:08 Glucose (Fingerstick) 88 mg/dL (70-99) 64 mg/dL (70-99) 99 mg/dL (70-99) Urine Opiates Screen Pos (NEG) Urine Methadone Screen Neg (NEG) Urine Barbiturates Neg (NEG) Urine Phencyclidine Screen Pos (NEG) Urine Amphetamine/Methamphetamine Neg (NEG) Urine Benzodiazepines Screen Neg (NEG) Urine Cocaine Screen Pos (NEG) Urine Cannabinoids Screen Neg (NEG) Urine Ethyl Alcohol Neg (NEG) Test 10/30/20 07:10 10/30/20 07:26 White Blood Count 6.0 x10^3/uL (4.0-11.0) Red Blood Count 2.75 x10^6/uL (4.30-5.70) Hemoglobin 7.8 g/dL (13.0-17.5) Hematocrit 24.4 % (39.0-53.0) Mean Corpuscular Volume 89 fL (79-100) Mean Corpuscular Hemoglobin 29 pg (25-35) Mean Corpuscular Hemoglobin Concent 32 g/dL (31-37) Red Cell Distribution Width 15.3 % (11.5-14.5) Platelet Count 226 x10^3/uL (140-400) Neutrophils (%) (Auto) 73 % (31-73) Lymphocytes (%) (Auto) 15 % (24-48) Monocytes (%) (Auto) 7 % (0-9) Eosinophils (%) (Auto) 4 % (0-3) Basophils (%) (Auto) 1 % (0-3) Neutrophils # (Auto) 4.3 x10^3/uL (1.8-7.7) Lymphocytes # (Auto) 0.9 x10^3/uL (1.0-4.8) Monocytes # (Auto) 0.4 x10^3/uL (0.0-1.1) Eosinophils # (Auto) 0.2 x10^3/uL (0.0-0.7) Basophils # (Auto) 0.0 x10^3/uL (0.0-0.2) Sodium Level 137 mmol/L (136-145) Potassium Level 4.6 mmol/L (3.5-5.1) Chloride Level 106 mmol/L (98-107) Carbon Dioxide Level 22 mmol/L (21-32) Anion Gap 9 (6-14) Blood Urea Nitrogen 56 mg/dL (8-26) Creatinine 2.2 mg/dL (0.7-1.3) Estimated GFR (Cockcroft-Gault) 37.7 BUN/Creatinine Ratio 25 (6-20) Glucose Level 54 mg/dL (70-99) Calcium Level 8.6 mg/dL (8.5-10.1) Total Bilirubin 0.4 mg/dL (0.2-1.0) Aspartate Amino Transf (AST/SGOT) 20 U/L (15-37) Alanine Aminotransferase (ALT/SGPT) 34 U/L (16-63) Alkaline Phosphatase 69 U/L (46-116) Total Protein 6.4 g/dL (6.4-8.2) Albumin 2.4 g/dL (3.4-5.0) Albumin/Globulin Ratio 0.6 (1.0-1.7) Glucose (Fingerstick) 55 mg/dL (70-99) Assessment and Plan Assessmemt and Plan Problems Medical Problems: (1) Chest pain Status: Acute (2) CHF exacerbation Status: Acute (3) HTN (hypertension) Status: Acute (4) Person under investigation for COVID-19 Status: Acute Comment Review of Relevant I have reviewed the following items karissa (where applicable) has been applied. Labs Laboratory Tests Test 10/28/20 12:21 10/28/20 12:35 10/28/20 13:26 10/28/20 14:15 Glucose (Fingerstick) 57 mg/dL (70-99) 62 mg/dL (70-99) 55 mg/dL (70-99) 57 mg/dL (70-99) Test 10/28/20 16:18 10/28/20 20:29 10/29/20 06:00 10/29/20 08:06 Glucose (Fingerstick) 88 mg/dL (70-99) 146 mg/dL (70-99) 71 mg/dL (70-99) White Blood Count 5.9 x10^3/uL (4.0-11.0) Red Blood Count 2.35 x10^6/uL (4.30-5.70) Hemoglobin 6.6 g/dL (13.0-17.5) Hematocrit 20.8 % (39.0-53.0) Mean Corpuscular Volume 89 fL (79-100) Mean Corpuscular Hemoglobin 28 pg (25-35) Mean Corpuscular Hemoglobin Concent 32 g/dL (31-37) Red Cell Distribution Width 15.5 % (11.5-14.5) Platelet Count 202 x10^3/uL (140-400) Neutrophils (%) (Auto) 72 % (31-73) Lymphocytes (%) (Auto) 16 % (24-48) Monocytes (%) (Auto) 8 % (0-9) Eosinophils (%) (Auto) 4 % (0-3) Basophils (%) (Auto) 1 % (0-3) Neutrophils # (Auto) 4.2 x10^3/uL (1.8-7.7) Lymphocytes # (Auto) 0.9 x10^3/uL (1.0-4.8) Monocytes # (Auto) 0.4 x10^3/uL (0.0-1.1) Eosinophils # (Auto) 0.2 x10^3/uL (0.0-0.7) Basophils # (Auto) 0.0 x10^3/uL (0.0-0.2) Sodium Level 135 mmol/L (136-145) Potassium Level 5.0 mmol/L (3.5-5.1) Chloride Level 105 mmol/L (98-107) Carbon Dioxide Level 23 mmol/L (21-32) Anion Gap 7 (6-14) Blood Urea Nitrogen 57 mg/dL (8-26) Creatinine 2.4 mg/dL (0.7-1.3) Estimated GFR (Cockcroft-Gault) 34.1 Glucose Level 87 mg/dL (70-99) Calcium Level 8.4 mg/dL (8.5-10.1) Test 10/29/20 11:55 10/29/20 16:07 10/29/20 18:09 10/29/20 21:08 Glucose (Fingerstick) 88 mg/dL (70-99) 64 mg/dL (70-99) 99 mg/dL (70-99) Urine Opiates Screen Pos (NEG) Urine Methadone Screen Neg (NEG) Urine Barbiturates Neg (NEG) Urine Phencyclidine Screen Pos (NEG) Urine Amphetamine/Methamphetamine Neg (NEG) Urine Benzodiazepines Screen Neg (NEG) Urine Cocaine Screen Pos (NEG) Urine Cannabinoids Screen Neg (NEG) Urine Ethyl Alcohol Neg (NEG) Test 10/30/20 07:10 10/30/20 07:26 White Blood Count 6.0 x10^3/uL (4.0-11.0) Red Blood Count 2.75 x10^6/uL (4.30-5.70) Hemoglobin 7.8 g/dL (13.0-17.5) Hematocrit 24.4 % (39.0-53.0) Mean Corpuscular Volume 89 fL (79-100) Mean Corpuscular Hemoglobin 29 pg (25-35) Mean Corpuscular Hemoglobin Concent 32 g/dL (31-37) Red Cell Distribution Width 15.3 % (11.5-14.5) Platelet Count 226 x10^3/uL (140-400) Neutrophils (%) (Auto) 73 % (31-73) Lymphocytes (%) (Auto) 15 % (24-48) Monocytes (%) (Auto) 7 % (0-9) Eosinophils (%) (Auto) 4 % (0-3) Basophils (%) (Auto) 1 % (0-3) Neutrophils # (Auto) 4.3 x10^3/uL (1.8-7.7) Lymphocytes # (Auto) 0.9 x10^3/uL (1.0-4.8) Monocytes # (Auto) 0.4 x10^3/uL (0.0-1.1) Eosinophils # (Auto) 0.2 x10^3/uL (0.0-0.7) Basophils # (Auto) 0.0 x10^3/uL (0.0-0.2) Sodium Level 137 mmol/L (136-145) Potassium Level 4.6 mmol/L (3.5-5.1) Chloride Level 106 mmol/L (98-107) Carbon Dioxide Level 22 mmol/L (21-32) Anion Gap 9 (6-14) Blood Urea Nitrogen 56 mg/dL (8-26) Creatinine 2.2 mg/dL (0.7-1.3) Estimated GFR (Cockcroft-Gault) 37.7 BUN/Creatinine Ratio 25 (6-20) Glucose Level 54 mg/dL (70-99) Calcium Level 8.6 mg/dL (8.5-10.1) Total Bilirubin 0.4 mg/dL (0.2-1.0) Aspartate Amino Transf (AST/SGOT) 20 U/L (15-37) Alanine Aminotransferase (ALT/SGPT) 34 U/L (16-63) Alkaline Phosphatase 69 U/L (46-116) Total Protein 6.4 g/dL (6.4-8.2) Albumin 2.4 g/dL (3.4-5.0) Albumin/Globulin Ratio 0.6 (1.0-1.7) Glucose (Fingerstick) 55 mg/dL (70-99) Laboratory Tests Test 10/29/20 11:55 10/29/20 16:07 10/29/20 18:09 10/29/20 21:08 Glucose (Fingerstick) 88 mg/dL (70-99) 64 mg/dL (70-99) 99 mg/dL (70-99) Urine Opiates Screen Pos (NEG) Urine Methadone Screen Neg (NEG) Urine Barbiturates Neg (NEG) Urine Phencyclidine Screen Pos (NEG) Urine Amphetamine/Methamphetamine Neg (NEG) Urine Benzodiazepines Screen Neg (NEG) Urine Cocaine Screen Pos (NEG) Urine Cannabinoids Screen Neg (NEG) Urine Ethyl Alcohol Neg (NEG) Test 10/30/20 07:10 10/30/20 07:26 White Blood Count 6.0 x10^3/uL (4.0-11.0) Red Blood Count 2.75 x10^6/uL (4.30-5.70) Hemoglobin 7.8 g/dL (13.0-17.5) Hematocrit 24.4 % (39.0-53.0) Mean Corpuscular Volume 89 fL (79-100) Mean Corpuscular Hemoglobin 29 pg (25-35) Mean Corpuscular Hemoglobin Concent 32 g/dL (31-37) Red Cell Distribution Width 15.3 % (11.5-14.5) Platelet Count 226 x10^3/uL (140-400) Neutrophils (%) (Auto) 73 % (31-73) Lymphocytes (%) (Auto) 15 % (24-48) Monocytes (%) (Auto) 7 % (0-9) Eosinophils (%) (Auto) 4 % (0-3) Basophils (%) (Auto) 1 % (0-3) Neutrophils # (Auto) 4.3 x10^3/uL (1.8-7.7) Lymphocytes # (Auto) 0.9 x10^3/uL (1.0-4.8) Monocytes # (Auto) 0.4 x10^3/uL (0.0-1.1) Eosinophils # (Auto) 0.2 x10^3/uL (0.0-0.7) Basophils # (Auto) 0.0 x10^3/uL (0.0-0.2) Sodium Level 137 mmol/L (136-145) Potassium Level 4.6 mmol/L (3.5-5.1) Chloride Level 106 mmol/L (98-107) Carbon Dioxide Level 22 mmol/L (21-32) Anion Gap 9 (6-14) Blood Urea Nitrogen 56 mg/dL (8-26) Creatinine 2.2 mg/dL (0.7-1.3) Estimated GFR (Cockcroft-Gault) 37.7 BUN/Creatinine Ratio 25 (6-20) Glucose Level 54 mg/dL (70-99) Calcium Level 8.6 mg/dL (8.5-10.1) Total Bilirubin 0.4 mg/dL (0.2-1.0) Aspartate Amino Transf (AST/SGOT) 20 U/L (15-37) Alanine Aminotransferase (ALT/SGPT) 34 U/L (16-63) Alkaline Phosphatase 69 U/L (46-116) Total Protein 6.4 g/dL (6.4-8.2) Albumin 2.4 g/dL (3.4-5.0) Albumin/Globulin Ratio 0.6 (1.0-1.7) Glucose (Fingerstick) 55 mg/dL (70-99) Microbiology 10/24/20 Urine Culture - Final, Complete Medications Current Medications Nitroglycerin (Nitro-Bid Oint) 1 inch 1X ONCE TP Last administered on 10/20/20at 13:22; Start 10/20/20 at 13:15; Stop 10/20/20 at 13:16; Status DC Morphine Sulfate (Morphine Sulfate) 4 mg 1X ONCE IV Last administered on 10/20/20at 13:23; Start 10/20/20 at 13:15; Stop 10/20/20 at 13:16; Status DC Furosemide (Lasix) 80 mg 1X ONCE IVP Last administered on 10/20/20at 16:25; Start 10/20/20 at 15:45; Stop 10/20/20 at 15:46; Status DC Hydralazine HCl (Apresoline Inj) 10 mg PRN Q20MIN PRN IVP ELEVATED BP, SEE COMMENTS Last administered on 10/20/20at 16:28; Start 10/20/20 at 15:30 Furosemide (Lasix) 80 mg [id number] PO Last administered on 10/23/20at 08:11; Start 10/21/20 at 09:00; Stop 10/24/20 at 15:14; Status DC Insulin Human Lispro (HumaLOG) 0-9 UNITS TIDWMEALS SQ Last administered on 10/27/20at 08:17; Start 10/20/20 at 17:00 Dextrose (Dextrose 50%-Water Syringe) 12.5 gm PRN Q15MIN PRN IV SEE COMMENTS; Start 10/20/20 at 15:45 Ondansetron HCl (Zofran) 4 mg PRN Q6HRS PRN IVP NAUSEA/VOMITING Last admini stered on 10/22/20at 11:57; Start 10/20/20 at 16:15 Al Hydroxide/Mg Hydroxide (Mylanta Plus Xs) 30 ml PRN Q3HRS PRN PO HEARTBURN / GAS; Start 10/20/20 at 16:15 Calcium Carbonate/ Glycine (Tums) 500 mg PRN Q3HRS PRN PO UPSET STOMACH; Start 10/20/20 at 16:15 Zolpidem Tartrate (Ambien) 5 mg PRN QHS PRN PO INSOMNIA, MAY REPEAT IN 1HR Last administered on 10/20/20at 21:39; Start 10/20/20 at 16:15 Acetaminophen (Tylenol) 650 mg PRN Q6HRS PRN PO Headaches, Temp > 101.5F Last administered on 10/25/20at 14:19; Start 10/20/20 at 16:15 Magnesium Hydroxide (Milk Of Magnesia) 2,400 mg PRN Q12HR PRN PO CONSTIPATION Last administered on 10/22/20at 06:11; Start 10/20/20 at 16:15 Bisacodyl (Dulcolax Supp) 10 mg PRN DAILY PRN AR CONSTIPATION; Start 10/20/20 at 16:15 Heparin Sodium (Porcine) (Heparin Sodium) 5,000 unit Q8HRS SQ Last administered on 10/29/20at 05:59; Start 10/20/20 at 16:30; Stop 10/29/20 at 07:14; Status DC Morphine Sulfate (Morphine Sulfate) 4 mg PRN Q2HR PRN IV MODERATE TO SEVERE PAIN Last administered on 10/30/20at 00:48; Start 10/20/20 at 16:30 Tramadol HCl (Ultram) 50 mg PRN Q6HRS PRN PO MILD TO MODERATE PAIN Last administered on 10/24/20at 08:25; Start 10/20/20 at 16:30 Amlodipine Besylate (Norvasc) 10 mg DAILY PO Last administered on 10/30/20at 08:42; Start 10/21/20 at 09:00 Aspirin (Aspirin Chewable) 81 mg [id number] PO Last administered on 10/28/20 09:57; Start 10/21/20 at 08:00 Clopidogrel Bisulfate (Plavix) 75 mg DAILY PO Last administered on 10/28/20 09:57; Start 10/21/20 at 09:00 Furosemide (Lasix) 80 mg BID92 PO Last administered on 10/21/20 08:54; Start 10/20/20 at 17:30; Stop 10/21/20 at 09:37; Status DC Pantoprazole Sodium (Protonix) 40 mg BIDAC PO Last administered on 10/30/20 08:42; Start 10/20/20 at 17:30 Senna/Docusate Sodium (Senna Plus) 2 tab PRN QEVNG PRN PO CONSTIPATION; Start 10/20/20 at 17:30 Spironolactone (Aldactone) 25 mg DAILY PO Last administered on 10/21/20at 08:52; Start 10/21/20 at 09:00; Stop 10/21/20 at 14:06; Status DC Tamsulosin HCl (Flomax) 0.4 mg DAILY PO Last administered on 10/30/20 08:42; Start 10/21/20 at 09:00 Carvedilol (Coreg) 25 mg BIDWMEALS PO Last administered on 10/30/20 08:43; Start 10/20/20 at 17:30 Gabapentin (Neurontin) 300 mg TID PO Last administered on 10/30/20 08:42; Start 10/20/20 at 21:00 Hydralazine HCl (Apresoline) 100 mg TID PO Last administered on 10/30/20 08:43; Start 10/20/20 at 21:00 Insulin Human Lispro (HumaLOG) 30 units TIDWMEALS SQ Last administered on 10/28/20 10:02; Start 10/21/20 at 08:00 Insulin Glargine (Lantus Syringe) 60 unit QHS SQ Last administered on 10/22/20 21:17; Start 10/20/20 at 21:00; Stop 10/23/20 at 13:07; Status DC Isosorbide Dinitrate (Isordil) 5 mg TID PO Last administered on 10/30/20 08:43; Start 10/20/20 at 21:00 Atorvastatin Calcium (Lipitor) 80 mg QHS PO Last administered on 10/24/20 21:42; Start 10/20/20 at 21:00; Stop 10/25/20 at 13:42; Status DC Lorazepam (Ativan Inj) 1 mg PRN Q4HRS PRN IVP ANXIETY / AGITATION Last administered on 10/22/20at 11:57; Start 10/20/20 at 17:30 Insulin Glargine (Lantus Syringe) 70 unit QHS SQ Last administered on 10/28/20at 21:01; Start 10/23/20 at 21:00 Lidocaine (Lidoderm) 2 patch DAILY TD Last administered on 10/30/20 08:43; Start 10/24/20 at 09:00 Miscellaneous (Lidoderm Patch Removal) 1 ea QHS MC Last administered on 10/29/20at 20:35; Start 10/24/20 at 21:00 Polysaccharide Iron Complex (Niferex 150) 150 mg DAILY PO Last administered on 10/30/20 08:42; Start 10/24/20 at 14:00 Sodium Chloride 1,000 ml @ 75 mls/hr [id number] ONCE IV ; Start 10/25/20 at 11:15; Stop 10/25/20 at 13:42; Status DC Sodium Chloride 1,000 ml @ 75 mls/hr [id number] IV Last administered on 10/28/20at 20:48; Start 10/25/20 at 14:00 Duloxetine HCl (Cymbalta) 30 mg DAILY PO Last administered on 10/27/20at 08:03; Start 10/25/20 at 15:00; Stop 10/27/20 at 13:33; Status DC Lactulose (Lactulose) 20 gm 1X ONCE PO Last administered on 10/26/20at 12:47; Start 10/26/20 at 10:30; Stop 10/26/20 at 10:31; Status DC Lactulose (Lactulose) 20 gm 1X ONCE PO Last administered on 10/26/20at 12:47; Start 10/26/20 at 10:30; Stop 10/26/20 at 10:31; Status DC Duloxetine HCl (Cymbalta) 60 mg DAILY PO Last administered on 10/30/20at 08:42; Start 10/28/20 at 09:00 Active Scripts Active Flomax (Tamsulosin Hcl) 0.4 Mg Cap.er.24h 0.4 Mg PO DAILY Children's Aspirin (Aspirin) 81 Mg Tab.chew 81 Mg PO [id number] Reported Senna-Docusate Sodium Tablet (Sennosides/Docusate Sodium) 1 Each Tablet 2 Tab PO PRN QEVNG PRN 5 Days Spironolactone 25 Mg Tablet 25 Mg PO DAILY Vitamin D2 (Ergocalciferol (Vitamin D2)) 1,250 Mcg Capsule 1,250 Mcg PO WEEKLY Lasix (Furosemide) 80 Mg Tablet 80 Mg PO BID Clopidogrel (Clopidogrel Bisulfate) 75 Mg Tablet 75 Mg PO DAILY Carvedilol 25 Mg Tablet 25 Mg PO BIDWMEALS Isosorbide Dinitrate 40 Mg Tablet.er 5 Mg PO TID Gabapentin 600 Mg Tablet 300 Mg PO TID Protonix (Pantoprazole Sodium) 40 Mg Tablet.dr 40 Mg PO BID Hydralazine Hcl 100 Mg Tablet 100 Mg PO TID Amlodipine Besylate 10 Mg Tablet 10 Mg PO DAILY Crestor (Rosuvastatin Calcium) 20 Mg Tablet 20 Mg PO QHS Levemir Flexpen (Insulin Detemir) 100 Unit/1 Ml Insuln.pen 60 Unit SQ HS Novolog Flexpen (Insulin Aspart) 100 Unit/1 Ml Insuln.pen 30 Unit SQ TIDAC Vitals/I & O Vital Sign - Last 24 Hours 10/29/20 10/29/20 10/29/20 10/29/20 10:52 11:00 11:08 12:08 Temp 97.5 97.5 97.6 97.5 97.5 97.6 Pulse 60 57 57 58 Resp 16 21 16 16 B/P (MAP) 146/53 154/70 (98) 132/63 140/74 Pulse Ox 93 O2 Delivery Room Air 10/29/20 10/29/20 10/29/20 10/29/20 13:08 14:00 14:15 15:00 Temp 97.6 98.4 97.6 98.4 Pulse 58 58 58 63 Resp 16 22 B/P (MAP) 142/74 156/85 156/85 160/93 (115) Pulse Ox 98 O2 Delivery Room Air 10/29/20 10/29/20 10/29/20 10/29/20 19:38 20:00 20:28 20:35 Temp 98.2 98.2 Pulse 60 60 Resp 26 18 B/P (MAP) 144/70 (94) 144/70 Pulse Ox 95 95 O2 Delivery Room Air Nasal Cannula Nasal Cannula O2 Flow Rate 2.0 2.0 10/29/20 10/29/20 10/29/20 10/30/20 20:35 20:58 22:53 00:48 Temp 98.1 98.1 Pulse 60 60 Resp 20 24 20 B/P (MAP) 144/70 127/58 (81) Pulse Ox 94 94 94 O2 Delivery Nasal Cannula Room Air Nasal Cannula O2 Flow Rate 2.0 2.0 10/30/20 10/30/20 10/30/20 10/30/20 01:18 02:58 07:00 07:40 Temp 98.0 97.5 98.0 97.5 Pulse 60 63 Resp 18 22 22 B/P (MAP) 146/61 (89) 149/66 (93) Pulse Ox 94 98 95 O2 Delivery Nasal Cannula Room Air BiPAP/CPAP Nasal Cannula O2 Flow Rate 2.0 2.0 10/30/20 10/30/20 10/30/20 10/30/20 08:42 08:43 08:43 08:43 Pulse 63 63 63 63 B/P (MAP) 149/66 149/66 149/66 149/66 Intake and Output 10/29/20 10/29/20 10/30/20 15:00 23:00 07:00 Intake Total 360 ml Output Total 300 ml Balance 360 ml -300 ml Justicifation of Admission Dx: Justifications for Admission: Justification of Admission Dx: N/A CHANELL ALBERTS MD Oct 30, 2020 10:46
[2020-10-30 10:59] LABS: BACTERIA,URINE FEW /HPF (0-FEW); RBC,URINE OCC /HPF (0-2)
[2020-10-30 11:16] VITALS: BP 142/54
--- NOTE | 2020-10-30 12:00 | PDOC ---
CARDIOLOGY PROGRESS NOTE SUBJECTIVE: No significant chest pain, he has chronic dyspnea OBJECTIVE: Vital Signs/I&O: Vital Signs Date Time Temp Pulse Resp B/P (MAP) Pulse Ox O2 Delivery O2 Flow Rate FiO2 10/30/20 11:16 97.9 61 24 142/54 (83) 93 Nasal Cannula 2.0 97.9 I & O 10/29/20 10/29/20 10/30/20 14:59 22:59 06:59 Intake Total 360 ml Output Total 300 ml Balance 360 ml -300 ml Objective: He is mildly somnolent but arousable. He is morbidly obese Decreased breath sounds at the bases Normal heart tones 1+ lower extremity edema Obese abdomen No focal neurologic deficits CURRENT MEDICATIONS: Current cardiovascular medications include carvedilol, hydralazine and Isordil. Aspirin and Plavix on hold due to recent anemia DIAGNOSTIC TESTING: Labs: Laboratory Tests 10/30/20 07:10 Laboratory Tests Test 10/29/20 16:07 10/29/20 18:09 10/29/20 21:08 10/30/20 07:10 Glucose (Fingerstick) 64 mg/dL (70-99) L 99 mg/dL (70-99) Urine Opiates Screen Pos (NEG) Urine Methadone Screen Neg (NEG) Urine Barbiturates Neg (NEG) Urine Phencyclidine Screen Pos (NEG) Urine Amphetamine/Methamphetamine Neg (NEG) Urine Benzodiazepines Screen Neg (NEG) Urine Cocaine Screen Pos (NEG) Urine Cannabinoids Screen Neg (NEG) Urine Ethyl Alcohol Neg (NEG) White Blood Count 6.0 x10^3/uL (4.0-11.0) Red Blood Count 2.75 x10^6/uL (4.30-5.70) L Hemoglobin 7.8 g/dL (13.0-17.5) L Hematocrit 24.4 % (39.0-53.0) L Mean Corpuscular Volume 89 fL (79-100) Mean Corpuscular Hemoglobin 29 pg (25-35) Mean Corpuscular Hemoglobin Concent 32 g/dL (31-37) Red Cell Distribution Width 15.3 % (11.5-14.5) H Platelet Count 226 x10^3/uL (140-400) Neutrophils (%) (Auto) 73 % (31-73) Lymphocytes (%) (Auto) 15 % (24-48) L Monocytes (%) (Auto) 7 % (0-9) Eosinophils (%) (Auto) 4 % (0-3) H Basophils (%) (Auto) 1 % (0-3) Neutrophils # (Auto) 4.3 x10^3/uL (1.8-7.7) Lymphocytes # (Auto) 0.9 x10^3/uL (1.0-4.8) L Monocytes # (Auto) 0.4 x10^3/uL (0.0-1.1) Eosinophils # (Auto) 0.2 x10^3/uL (0.0-0.7) Basophils # (Auto) 0.0 x10^3/uL (0.0-0.2) Sodium Level 137 mmol/L (136-145) Potassium Level 4.6 mmol/L (3.5-5.1) Chloride Level 106 mmol/L (98-107) Carbon Dioxide Level 22 mmol/L (21-32) Anion Gap 9 (6-14) Blood Urea Nitrogen 56 mg/dL (8-26) H Creatinine 2.2 mg/dL (0.7-1.3) H Estimated GFR (Cockcroft-Gault) 37.7 BUN/Creatinine Ratio 25 (6-20) H Glucose Level 54 mg/dL (70-99) L Calcium Level 8.6 mg/dL (8.5-10.1) Total Bilirubin 0.4 mg/dL (0.2-1.0) Aspartate Amino Transf (AST/SGOT) 20 U/L (15-37) Alkaline Phosphatase 69 U/L (46-116) Total Protein 6.4 g/dL (6.4-8.2) Albumin 2.4 g/dL (3.4-5.0) L Albumin/Globulin Ratio 0.6 (1.0-1.7) L Test 10/30/20 07:26 10/30/20 09:38 10/30/20 11:43 Glucose (Fingerstick) 55 mg/dL (70-99) L 124 mg/dL (70-99) H Urine Collection Type Unknown Urine Color Yellow Urine Clarity Clear Urine pH 5.0 (<5.0-8.0) Urine Specific [place] 1.010 (1.000-1.030) Urine Protein 30 mg/dL (NEG-TRACE) Urine Glucose (UA) Negative mg/dL (NEG) Urine Ketones (Stick) Negative mg/dL (NEG) Urine Blood Trace (NEG) Urine Nitrite Negative (NEG) Urine Bilirubin Negative (NEG) Urine Urobilinogen Dipstick 0.2 mg/dL (0.2 mg/dL) Urine Leukocyte Esterase Moderate (NEG) Urine RBC Occ /HPF (0-2) Urine WBC 11-20 /HPF (0-4) Urine Squamous Epithelial Cells Mod /LPF Urine Bacteria Few /HPF (0-FEW) ASSESSMENT: 1. Acute on chronic diastolic heart failure 2. Chronic kidney disease with a creatinine elevated 3. Hypertension 4. Prior history of peripheral arterial disease status post right femoropopliteal bypass for ischemic foot pain in 2016 5. Dyslipidemia 6. Substance abuse 7. Coronary artery disease with a prior history of moderate coronary atherosclerosis noted in the left circumflex system in 2016 at heart catheterization at 8. Anemia status post recent transfusion, etiology unclear MPI in 2018 without any significant ischemia with preserved LV function Echocardiogram at this hospitalization with normal ejection fraction with moderate mitral regurgitation and moderate pulmonary hypertension PLAN: 1. We will plan for a right heart catheterization tomorrow to determine his volume status to help further titrate his medications. He previously has been followed through the heart failure service, likely will need to reinitiate follow-up with them. -For now continue carvedilol, hydralazine and Isordil. Continue daily aspirin if cleared by GI service. Okay to hold Plavix for now. -Hold diuretics and we will plan for initiation of therapy depending on right heart cath results tomorrow. Justicifation of Admission Dx: Justifications for Admission: Justification of Admission Dx: N/A FRANCISCO RAMIREZ MD Oct 30, 2020 12:00
[2020-10-30] MEDS ORDERED: FUROSEMIDE 40 MG/4 ML VIAL. IVP ONE ×2 (12:15→21:00)
--- NOTE | 2020-10-30 12:58 | PDOC ---
DATE OF SERVICE DATE: 10/30/20 TIME: 12:57 SUBJECTIVE ROS stable OBJECTIVE Vital Signs Vital Signs Date Time Temp Pulse Resp B/P (MAP) Pulse Ox O2 Delivery O2 Flow Rate FiO2 10/30/20 11:16 97.9 61 24 142/54 (83) 93 Nasal Cannula 2.0 97.9 I & 0 Intake and Output 10/30/20 07:00 Intake Total 360 ml Output Total 300 ml Balance 60 ml Intake Oral 360 ml Output Urine Total 300 ml PHYSICAL EXAM Physical Exam eneral: Alert, Oriented X3, Cooperative, No acute distress HEENT: Atraumatic, Mucous membr. moist/pin, On o2 by [place] Neck supple Lungs: Decreased at bases, Non labored Heart: distant heart sounds Abdomen: Soft, Morbidly obese Extremities: LE edema + Skin: No breakdown, No significant lesion Neuro: Normal speech, Sensation intact. Unable to move EDELMIRA Alvarez in place DIAGNOSIS/ASSESSMENT Assessment & Plan MARQUISE on CKD- ATN ,Overdiuresis , NonOliguric, Renal function improved with IVF Supportive care, Lasix held since saturday ,, avoid nephrotoxins, Strict I/O , Monitor Labs QD . DC IVF (still running), jonah RN to dc , encourage PO intake Anemia- Hgb decreasing Receiving PRBC, was Fe deficient , SPEP No M spike, GI consulted Mildly Elevated CK- Improving. statin held . Restart per cardiology with monitoring CKD stage 3 B- Seen by [facility] [employer] in our practice . Cr was at his baseline at Presentation to [facility] Generalized weakness- netta LE Neuro consulted,unrelated to Renal failure Ac Resp failure - Stable on O2 by [place], Cxr No e/o pulm Congestion , Morbidly Obese, ROXANNE, COPD Acute on chronic diastolic CHF: due to noncompliance and continued cocaine use. CxR unremarkable AECOPD with continued tobaccoism ROXANNE: uses CPAP at home Substance abuse: uses cocaine HTN urgency: improved PAD: prior bypass, clinically stable COMMENT/RELEVANT DATA Meds Current Medications Medications (Trade) Dose Ordered Sig/Kiera Start Time Stop Time Status Last Admin Dose Admin Acetaminophen (Tylenol) 650 mg PRN Q6HRS PRN 10/20/20 16:15 10/25/20 14:19 650 MG Al Hydroxide/Mg Hydroxide (Mylanta Plus Xs) 30 ml PRN Q3HRS PRN 10/20/20 16:15 Amlodipine Besylate (Norvasc) 10 mg DAILY 10/21/20 09:00 10/30/20 08:42 10 MG Aspirin (Aspirin Chewable) 81 mg [id number] 10/21/20 08:00 10/28/20 09:57 81 MG Atorvastatin Calcium (Lipitor) 80 mg QHS 10/20/20 21:00 10/25/20 13:42 DC 10/24/20 21:42 80 MG Bisacodyl (Dulcolax Supp) 10 mg PRN DAILY PRN 10/20/20 16:15 Calcium Carbonate/ Glycine (Tums) 500 mg PRN Q3HRS PRN 10/20/20 16:15 Carvedilol (Coreg) 25 mg BIDWMEALS 10/20/20 17:30 10/30/20 08:43 25 MG Clopidogrel Bisulfate (Plavix) 75 mg DAILY 10/21/20 09:00 10/28/20 09:57 75 MG Dextrose (Dextrose 50%-Water Syringe) 12.5 gm PRN Q15MIN PRN 10/20/20 15:45 Duloxetine HCl (Cymbalta) 60 mg DAILY 10/28/20 09:00 10/30/20 08:42 60 MG Furosemide (Lasix) 40 mg 1X ONCE 10/30/20 12:15 10/30/20 12:20 DC 10/30/20 12:37 40 MG Gabapentin (Neurontin) 300 mg TID 10/20/20 21:00 10/30/20 08:42 300 MG Heparin Sodium (Porcine) (Heparin Sodium) 5,000 unit Q8HRS 10/20/20 16:30 10/29/20 07:14 DC 10/29/20 05:59 5,000 UNIT Hydralazine HCl (Apresoline Inj) 10 mg PRN Q20MIN PRN 10/20/20 15:30 10/20/20 16:28 10 MG Hydralazine HCl (Apresoline) 100 mg TID 10/20/20 21:00 10/30/20 08:43 100 MG Insulin Glargine (Lantus Syringe) 70 unit QHS 10/23/20 21:00 10/28/20 21:01 70 UNIT Insulin Human Lispro (HumaLOG) 30 units TIDWMEALS 10/21/20 08:00 10/28/20 10:02 30 UNITS Isosorbide Dinitrate (Isordil) 5 mg TID 10/20/20 21:00 10/30/20 08:43 5 MG Lactulose (Lactulose) 20 gm 1X ONCE 10/26/20 10:30 10/26/20 10:31 DC 10/26/20 12:47 20 GM Lidocaine (Lidoderm) 2 patch DAILY 10/24/20 09:00 10/30/20 08:43 2 PATCH Lorazepam (Ativan Inj) 1 mg PRN Q4HRS PRN 10/20/20 17:30 10/22/20 11:57 1 MG Magnesium Hydroxide (Milk Of Magnesia) 2,400 mg PRN Q12HR PRN 10/20/20 16:15 10/22/20 06:11 2,400 MG Miscellaneous (Lidoderm Patch Removal) 1 ea QHS 10/24/20 21:00 10/29/20 20:35 1 EA Morphine Sulfate (Morphine Sulfate) 4 mg PRN Q2HR PRN 10/20/20 16:30 10/30/20 00:48 4 MG Nitroglycerin (Nitro-Bid Oint) 1 inch 1X ONCE 10/20/20 13:15 10/20/20 13:16 DC 10/20/20 13:22 1 INCH Ondansetron HCl (Zofran) 4 mg PRN Q6HRS PRN 10/20/20 16:15 10/22/20 11:57 4 MG Pantoprazole Sodium (Protonix) 40 mg BIDAC 10/20/20 17:30 10/30/20 08:42 40 MG Polysaccharide Iron Complex (Niferex 150) 150 mg DAILY 10/24/20 14:00 10/30/20 08:42 150 MG Senna/Docusate Sodium (Senna Plus) 2 tab PRN QEVNG PRN 10/20/20 17:30 Sodium Chloride 1,000 ml @ 75 mls/hr [id number] 10/25/20 14:00 10/28/20 20:48 75 MLS/HR Spironolactone (Aldactone) 25 mg DAILY 10/21/20 09:00 10/21/20 14:06 DC 10/21/20 08:52 25 MG Tamsulosin HCl (Flomax) 0.4 mg DAILY 10/21/20 09:00 10/30/20 08:42 0.4 MG Tramadol HCl (Ultram) 50 mg PRN Q6HRS PRN 10/20/20 16:30 10/24/20 08:25 50 MG Zolpidem Tartrate (Ambien) 5 mg PRN QHS PRN 10/20/20 16:15 10/20/20 21:39 5 MG Lab Laboratory Tests Test 10/29/20 16:07 10/29/20 18:09 10/29/20 21:08 10/30/20 07:10 Glucose (Fingerstick) 64 mg/dL (70-99) 99 mg/dL (70-99) Urine Opiates Screen Pos (NEG) Urine Methadone Screen Neg (NEG) Urine Barbiturates Neg (NEG) Urine Phencyclidine Screen Pos (NEG) Urine Amphetamine/Methamphetamine Neg (NEG) Urine Benzodiazepines Screen Neg (NEG) Urine Cocaine Screen Pos (NEG) Urine Cannabinoids Screen Neg (NEG) Urine Ethyl Alcohol Neg (NEG) White Blood Count 6.0 x10^3/uL (4.0-11.0) Red Blood Count 2.75 x10^6/uL (4.30-5.70) Hemoglobin 7.8 g/dL (13.0-17.5) Hematocrit 24.4 % (39.0-53.0) Mean Corpuscular Volume 89 fL (79-100) Mean Corpuscular Hemoglobin 29 pg (25-35) Mean Corpuscular Hemoglobin Concent 32 g/dL (31-37) Red Cell Distribution Width 15.3 % (11.5-14.5) Platelet Count 226 x10^3/uL (140-400) Neutrophils (%) (Auto) 73 % (31-73) Lymphocytes (%) (Auto) 15 % (24-48) Monocytes (%) (Auto) 7 % (0-9) Eosinophils (%) (Auto) 4 % (0-3) Basophils (%) (Auto) 1 % (0-3) Neutrophils # (Auto) 4.3 x10^3/uL (1.8-7.7) Lymphocytes # (Auto) 0.9 x10^3/uL (1.0-4.8) Monocytes # (Auto) 0.4 x10^3/uL (0.0-1.1) Eosinophils # (Auto) 0.2 x10^3/uL (0.0-0.7) Basophils # (Auto) 0.0 x10^3/uL (0.0-0.2) Sodium Level 137 mmol/L (136-145) Potassium Level 4.6 mmol/L (3.5-5.1) Chloride Level 106 mmol/L (98-107) Carbon Dioxide Level 22 mmol/L (21-32) Anion Gap 9 (6-14) Blood Urea Nitrogen 56 mg/dL (8-26) Creatinine 2.2 mg/dL (0.7-1.3) Estimated GFR (Cockcroft-Gault) 37.7 BUN/Creatinine Ratio 25 (6-20) Glucose Level 54 mg/dL (70-99) Calcium Level 8.6 mg/dL (8.5-10.1) Total Bilirubin 0.4 mg/dL (0.2-1.0) Aspartate Amino Transf (AST/SGOT) 20 U/L (15-37) Alanine Aminotransferase (ALT/SGPT) 34 U/L (16-63) Alkaline Phosphatase 69 U/L (46-116) Total Protein 6.4 g/dL (6.4-8.2) Albumin 2.4 g/dL (3.4-5.0) Albumin/Globulin Ratio 0.6 (1.0-1.7) Test 10/30/20 07:26 10/30/20 09:38 10/30/20 11:43 Glucose (Fingerstick) 55 mg/dL (70-99) 124 mg/dL (70-99) Urine Collection Type Unknown Urine Color Yellow Urine Clarity Clear Urine pH 5.0 (<5.0-8.0) Urine Specific [place] 1.010 (1.000-1.030) Urine Protein 30 mg/dL (NEG-TRACE) Urine Glucose (UA) Negative mg/dL (NEG) Urine Ketones (Stick) Negative mg/dL (NEG) Urine Blood Trace (NEG) Urine Nitrite Negative (NEG) Urine Bilirubin Negative (NEG) Urine Urobilinogen Dipstick 0.2 mg/dL (0.2 mg/dL) Urine Leukocyte Esterase Moderate (NEG) Urine RBC Occ /HPF (0-2) Urine WBC 11-20 /HPF (0-4) Urine Squamous Epithelial Cells Mod /LPF Urine Bacteria Few /HPF (0-FEW) Results All relevant outside records, renal labs, imaging studies, telemetry/EKG's were reviewed. Justicifation of Admission Dx: Justifications for Admission: Justification of Admission Dx: N/A NATASHA MCDONALD MD Oct 30, 2020 12:58
--- NOTE | 2020-10-30 14:49 | NUR ---
Gave a PRN dose of 4mg of morphine with morning medication, but I must not have scanned it or forgot to hit save. Im not sure. Medication was manually entered.
[2020-10-30 15:00] VITALS: BP 114/43
--- NOTE | 2020-10-30 18:10 | RAD ---
Exam: CT pelvis without contrast INDICATION: Diffuse swelling TECHNIQUE: Sequential axial images through the pelvis obtained without IV contrast. Sagittal and rosi nal reformatted images were reconstructed from the axial data and reviewed. Comparisons: None FINDINGS: Visualized intrapelvic structures are unremarkable. Surgical clips are noted at the right inguinal re gion. There is diffuse soft tissue edema involving the penis and scrotum. No soft tissue gas is identified. There is a Alvarez catheter which terminates in the bladder, which is decompressed. Mild soft tissue anasarca is noted in the bilateral lower extremities. Bone mineralization is normal. No acute fractures. Joint spaces are well-maintained. IMPRESSION: Soft tissue edema involving the penis scrotum. This may relate to volume overload given diffuse soft tissue anasarca. No soft tissue gas to suggest gangrene. Correlate for infection. Exposure: One or more of the following in the visualized dose reduction techniques were utilized for this examination: 1. Automated exposure control 2. Adjustment of the MA and/or KV according to patient size 3. Use of iterative of reconstructive technique Electronically signed by: Marycarmen Baker MD (10/30/2020 6:07 PM) [facility]
[2020-10-30 19:56] VITALS: BP 165/62
[2020-10-30] MEDS ORDERED: MORPHINE SULFATE 4 MG/ML VIAL. IM ONE (20:45)
[2020-10-30] MEDS: cefTRIAXone IV Push 1 GM VIAL. IVP SCH (21:00)
[2020-10-30] MEDS: INSULIN GLARGINE SYRINGE. SQ SCH (21:00)
[2020-10-30] MEDS: PATCH REMOVAL. MC SCH (21:00)
[2020-10-30] MEDS ORDERED: MORPHINE SULFATE 4 MG/ML VIAL. IV ONE (22:00)
[2020-10-30 23:44] VITALS: BP 146/89
[2020-10-31] VITALS (12 sets, daily range): BP systolic 127–160; BP diastolic 53–77
[2020-10-31] MEDS: MORPHINE SULFATE 4 MG/ML VIAL. IV PRN ×2 (06:06→20:55)
[2020-10-31 06:47] LABS: CALCIUM 8.6 mg/dL (8.5-10.1); CREATININE 2.3 mg/dL (0.7-1.3); GFR 35.8; POTASSIUM 4.6 mmol/L (3.5-5.1)
[2020-10-31] MEDS: INSULIN LISPRO 300 UNITS/3 ML VIAL. SQ SCH ×6 (08:00→17:00)
[2020-10-31] MEDS: DULoxetine HCL 30 MG CAPSULE.DR PO SCH (10:01)
[2020-10-31] MEDS: ASPIRIN CHEWABLE 81 MG TABLET. PO SCH (10:01)
[2020-10-31] MEDS: CARVEDILOL 12.5 MG TABLET. PO SCH ×2 (10:01→17:32)
[2020-10-31] MEDS: ISOSORBIDE DINITRATE 10 MG TABLET. PO SCH ×3 (10:05→20:58)
[2020-10-31] MEDS: GABAPENTIN 300 MG CAPSULE. PO SCH ×3 (10:06→20:57)
[2020-10-31] MEDS: TAMSULOSIN 0.4 MG CAP.ER.24H. PO SCH (10:07)
[2020-10-31] MEDS: CLOPIDOGREL BISULFATE 75 MG TABLET PO SCH (10:07)
[2020-10-31] MEDS: PANTOPRAZOLE 40 MG TABLET.DR. PO SCH ×2 (10:07→15:55)
[2020-10-31] MEDS: IRON POLYSACCHARIDE COMPLEX 150 MG CAPSULE PO SCH (10:08)
[2020-10-31] MEDS: LIDOCAINE (700MG/PATCH) PATCH. TD SCH (10:09)
--- NOTE | 2020-10-31 12:05 | PDOC ---
DATE OF SERVICE DATE: 10/31/20 TIME: 12:02 SUBJECTIVE ROS stable OBJECTIVE Vital Signs Vital Signs Date Time Temp Pulse Resp B/P (MAP) Pulse Ox O2 Delivery O2 Flow Rate FiO2 10/31/20 11:25 98.2 62 20 143/53 (83) 95 Nasal Cannula 2.0 98.2 I & 0 Intake and Output 10/31/20 07:00 Intake Total 2020 ml Output Total 2975 ml Balance -955 ml Intake Oral 2020 ml Output Urine Total 2975 ml PHYSICAL EXAM Physical Exam General: Alert, Oriented X3, Cooperative, No acute distress HEENT: Atraumatic, Mucous membr. moist/pin, On o2 by [place] Neck supple Lungs: Decreased at bases, Non labored Heart: distant heart sounds Abdomen: Soft, Morbidly obese Extremities: LE edema + Skin: No breakdown, No significant lesion Neuro: Normal speech, Sensation intact. Unable to move EDELMIRA Alvarez in place DIAGNOSIS/ASSESSMENT Assessment & Plan MARQUISE on CKD- ATN ,Overdiuresis , NonOliguric, Renal function improved after dc lasix and IVF avoid nephrotoxins, Monitor renal labs Anemia- Hgb decreasing Receiving PRBC, was Fe deficient , SPEP No M spike, GI consulted Mildly Elevated CK- Improving. statin held . Restart per cardiology with mo nitoring CKD stage 3 B- Seen by MEDICAL DIR in our practice . Cr was at his baseline at Presentation to [facility] Generalized weakness- netta LE Neuro consulted,unrelated to Renal failure Ac Resp failure - Stable on O2 by [place], Cxr No e/o pulm Congestion , Morbidly Obese, ROXANNE, COPD . S/P Lasix IV x 1 per cardiology - Acute on chronic diastolic CHF: due to noncompliance and continued cocaine use. CxR unremarkable AECOPD with continued tobaccoism ROXANNE: uses CPAP at home Substance abuse: uses cocaine HTN urgency: improved PAD: prior bypass, clinically stable COMMENT/RELEVANT DATA Meds Current Medications Medications (Trade) Dose Ordered Sig/Kiera Start Time Stop Time Status Last Admin Dose Admin Acetaminophen (Tylenol) 650 mg PRN Q6HRS PRN 10/20/20 16:15 10/25/20 14:19 650 MG Al Hydroxide/Mg Hydroxide (Mylanta Plus Xs) 30 ml PRN Q3HRS PRN 10/20/20 16:15 Amlodipine Besylate (Norvasc) 10 mg DAILY 10/21/20 09:00 10/30/20 08:42 10 MG Aspirin (Aspirin Chewable) 81 mg DAILYWBKFT 10/21/20 08:00 10/31/20 10:01 81 MG Atorvastatin Calcium (Lipitor) 80 mg QHS 10/20/20 21:00 10/25/20 13:42 DC 10/24/20 21:42 80 MG Bisacodyl (Dulcolax Supp) 10 mg PRN DAILY PRN 10/20/20 16:15 Calcium Carbonate/ Glycine (Tums) 500 mg PRN Q3HRS PRN 10/20/20 16:15 Carvedilol (Coreg) 25 mg BIDWMEALS 10/20/20 17:30 10/31/20 10:01 25 MG Ceftriaxone Sodium (Rocephin) 1 gm Q24H 10/30/20 21:00 10/30/20 21:00 1 GM Clopidogrel Bisulfate (Plavix) 75 mg DAILY 10/21/20 09:00 10/31/20 10:07 75 MG Dextrose (Dextrose 50%-Water Syringe) 12.5 gm PRN Q15MIN PRN 10/20/20 15:45 Duloxetine HCl (Cymbalta) 60 mg DAILY 10/28/20 09:00 10/31/20 10:01 60 MG Furosemide (Lasix) 40 mg 1X ONCE 10/30/20 21:00 10/30/20 21:01 DC 10/30/20 21:00 40 MG Gabapentin (Neurontin) 300 mg TID 10/20/20 21:00 10/31/20 10:06 300 MG Heparin Sodium (Porcine) (Heparin Sodium) 5,000 unit Q8HRS 10/20/20 16:30 10/29/20 07:14 DC 10/29/20 05:59 5,000 UNIT Hydralazine HCl (Apresoline Inj) 10 mg PRN Q20MIN PRN 10/20/20 15:30 10/20/20 16:28 10 MG Hydralazine HCl (Apresoline) 100 mg TID 10/20/20 21:00 10/30/20 19:59 100 MG Insulin Glargine (Lantus Syringe) 70 unit QHS 10/23/20 21:00 10/30/20 21:00 70 UNIT Insulin Human Lispro (HumaLOG) 30 units TIDWMEALS 10/21/20 08:00 10/28/20 10:02 30 UNITS Isosorbide Dinitrate (Isordil) 5 mg TID 10/20/20 21:00 10/31/20 10:05 5 MG Lactulose (Lactulose) 20 gm 1X ONCE 10/26/20 10:30 10/26/20 10:31 DC 10/26/20 12:47 20 GM Lidocaine (Lidoderm) 2 patch DAILY 10/24/20 09:00 10/31/20 10:09 2 PATCH Lorazepam (Ativan Inj) 1 mg PRN Q4HRS PRN 10/20/20 17:30 10/22/20 11:57 1 MG Magnesium Hydroxide (Milk Of Magnesia) 2,400 mg PRN Q12HR PRN 10/20/20 16:15 10/22/20 06:11 2,400 MG Miscellaneous (Lidoderm Patch Removal) 1 ea QHS 10/24/20 21:00 10/30/20 21:00 1 EA Morphine Sulfate (Morphine Sulfate) 4 mg 1X ONCE 10/30/20 22:00 10/30/20 22:01 DC 10/30/20 22:00 4 MG Nitroglycerin (Nitro-Bid Oint) 1 inch 1X ONCE 10/20/20 13:15 10/20/20 13:16 DC 10/20/20 13:22 1 INCH Ondansetron HCl (Zofran) 4 mg PRN Q6HRS PRN 10/20/20 16:15 10/22/20 11:57 4 MG Pantoprazole Sodium (Protonix) 40 mg BIDAC 10/20/20 17:30 10/31/20 10:07 40 MG Polysaccharide Iron Complex (Niferex 150) 150 mg DAILY 10/24/20 14:00 10/31/20 10:08 150 MG Senna/Docusate Sodium (Senna Plus) 2 tab PRN QEVNG PRN 10/20/20 17:30 Sodium Chloride 1,000 ml @ 75 mls/hr [id number] 10/25/20 14:00 10/30/20 13:30 DC 10/28/20 20:48 75 MLS/HR Spironolactone (Aldactone) 25 mg DAILY 10/21/20 09:00 10/21/20 14:06 DC 10/21/20 08:52 25 MG Tamsulosin HCl (Flomax) 0.4 mg DAILY 10/21/20 09:00 10/31/20 10:07 0.4 MG Tramadol HCl (Ultram) 50 mg PRN Q6HRS PRN 10/20/20 16:30 10/30/20 20:36 DC 10/24/20 08:25 50 MG Zolpidem Tartrate (Ambien) 5 mg PRN QHS PRN 10/20/20 16:15 10/20/20 21:39 5 MG Lab Laboratory Tests Test 10/30/20 16:46 10/30/20 20:45 10/31/20 06:15 10/31/20 07:15 Glucose (Fingerstick) 168 mg/dL (70-99) 170 mg/dL (70-99) 102 mg/dL (70-99) Hemoglobin 8.0 g/dL (13.0-17.5) Sodium Level 137 mmol/L (136-145) Potassium Level 4.6 mmol/L (3.5-5.1) Chloride Level 105 mmol/L (98-107) Carbon Dioxide Level 24 mmol/L (21-32) Anion Gap 8 (6-14) Blood Urea Nitrogen 56 mg/dL (8-26) Creatinine 2.3 mg/dL (0.7-1.3) Estimated GFR (Cockcroft-Gault) 35.8 Glucose Level 114 mg/dL (70-99) Calcium Level 8.6 mg/dL (8.5-10.1) Test 10/31/20 11:55 Glucose (Fingerstick) 128 mg/dL (70-99) Results All relevant outside records, renal labs, imaging studies, telemetry/EKG's were reviewed. Justicifation of Admission Dx: Justifications for Admission: Justification of Admission Dx: N/A NATASHA MCDONALD MD Oct 31, 2020 12:05
[2020-10-31] MEDS ORDERED: fentaNYL PF VIAL 100 MCG/2 ML VIAL ONE (12:18)
[2020-10-31] MEDS ORDERED: MIDAZOLAM HCL/PF 2 MG/2 ML VIAL. ONE (12:18)
[2020-10-31] MEDS ORDERED: LIDOCAINE 1% Multi-Dose 20 ML VIAL. ONE (12:28)
[2020-10-31] MEDS ORDERED: fentaNYL PF VIAL 100 MCG/2 ML VIAL IV ONE (12:30)
[2020-10-31] MEDS ORDERED: LIDOCAINE 1% Multi-Dose 20 ML VIAL. INJ ONE (12:30)
[2020-10-31] MEDS ORDERED: MIDAZOLAM HCL/PF 2 MG/2 ML VIAL. IV ONE (12:30)
[2020-10-31] MEDS ORDERED: FUROSEMIDE 100 MG/10 ML VIAL. ONE (13:19)
[2020-10-31] MEDS ORDERED: FUROSEMIDE 100 MG/10 ML VIAL. IVP ONE (13:30)
--- NOTE | 2020-10-31 13:41 | PDOC ---
PROGRESS NOTES Date of Service DATE: 10/31/20 TIME: 13:39 Assessment Problems Medical Problems: (1) Chest pain Status: Acute (2) CHF exacerbation Status: Acute (3) HTN (hypertension) Status: Acute (4) Person under investigation for COVID-19 Status: Acute Peripheral neuropathy, most likely from diabetes (hemoglobin A1c is 6.9), labs negative for other causes, exacerbated by acute metabolic issues including anemia and renal failure. Consider acute inflammatory demyelinating neuropathy, but this is unlikely, patient started getting weak at least a year ago. I find no evidence of central nervous system disease including myelopathy. Lab work so far is negative. He denies significant back pain Substance abuse, cocaine Having cardiac catheterization today, 10/31 Plan Hold statin (already done) Rehabilitation modalities, needs inpatient rehab Continue gabapentin and duloxetine. Follow-up with me for outpatient EMG studies Hold on lumbar puncture. Subjective Complains of penile swelling, internal medicine aware Objective Vital Signs Date Time Temp Pulse Resp B/P (MAP) Pulse Ox O2 Delivery O2 Flow Rate FiO2 10/31/20 13:36 62 21 96 Nasal Cannula 2.0 10/31/20 11:25 98.2 143/53 (83) 98.2 Intake and Output 10/31/20 07:00 Intake Total 2020 ml Output Total 2975 ml Balance -955 ml Intake Oral 2020 ml Output Urine Total 2975 ml PHYSICAL EXAM Alert. Oriented to time, place and person. PERRL. EOMI. CN: no focal findings. Muscle tone: normal. Muscle strength: 4/5 DTR: 0+ Plantar reflex: Flexor Gait: not examined in bed. Sensory exam: Stocking loss. Review of Relevant I have reviewed the following items karissa (where applicable) has been applied. Labs Laboratory Tests Test 10/29/20 16:07 10/29/20 18:09 10/29/20 21:08 10/30/20 07:10 Glucose (Fingerstick) 64 mg/dL (70-99) 99 mg/dL (70-99) Urine Opiates Screen Pos (NEG) Urine Methadone Screen Neg (NEG) Urine Barbiturates Neg (NEG) Urine Phencyclidine Screen Pos (NEG) Urine Amphetamine/Methamphetamine Neg (NEG) Urine Benzodiazepines Screen Neg (NEG) Urine Cocaine Screen Pos (NEG) Urine Cannabinoids Screen Neg (NEG) Urine Ethyl Alcohol Neg (NEG) White Blood Count 6.0 x10^3/uL (4.0-11.0) Red Blood Count 2.75 x10^6/uL (4.30-5.70) Hemoglobin 7.8 g/dL (13.0-17.5) Hematocrit 24.4 % (39.0-53.0) Mean Corpuscular Volume 89 fL (79-100) Mean Corpuscular Hemoglobin 29 pg (25-35) Mean Corpuscular Hemoglobin Concent 32 g/dL (31-37) Red Cell Distribution Width 15.3 % (11.5-14.5) Platelet Count 226 x10^3/uL (140-400) Neutrophils (%) (Auto) 73 % (31-73) Lymphocytes (%) (Auto) 15 % (24-48) Monocytes (%) (Auto) 7 % (0-9) Eosinophils (%) (Auto) 4 % (0-3) Basophils (%) (Auto) 1 % (0-3) Neutrophils # (Auto) 4.3 x10^3/uL (1.8-7.7) Lymphocytes # (Auto) 0.9 x10^3/uL (1.0-4.8) Monocytes # (Auto) 0.4 x10^3/uL (0.0-1.1) Eosinophils # (Auto) 0.2 x10^3/uL (0.0-0.7) Basophils # (Auto) 0.0 x10^3/uL (0.0-0.2) Sodium Level 137 mmol/L (136-145) Potassium Level 4.6 mmol/L (3.5-5.1) Chloride Level 106 mmol/L (98-107) Carbon Dioxide Level 22 mmol/L (21-32) Anion Gap 9 (6-14) Blood Urea Nitrogen 56 mg/dL (8-26) Creatinine 2.2 mg/dL (0.7-1.3) Estimated GFR (Cockcroft-Gault) 37.7 BUN/Creatinine Ratio 25 (6-20) Glucose Level 54 mg/dL (70-99) Calcium Level 8.6 mg/dL (8.5-10.1) Total Bilirubin 0.4 mg/dL (0.2-1.0) Aspartate Amino Transf (AST/SGOT) 20 U/L (15-37) Alanine Aminotransferase (ALT/SGPT) 34 U/L (16-63) Alkaline Phosphatase 69 U/L (46-116) Total Protein 6.4 g/dL (6.4-8.2) Albumin 2.4 g/dL (3.4-5.0) Albumin/Globulin Ratio 0.6 (1.0-1.7) Test 10/30/20 07:26 10/30/20 09:38 10/30/20 11:43 10/30/20 16:46 Glucose (Fingerstick) 55 mg/dL (70-99) 124 mg/dL (70-99) 168 mg/dL (70-99) Urine Collection Type Unknown Urine Color Yellow Urine Clarity Clear Urine pH 5.0 (<5.0-8.0) Urine Specific Polo 1.010 (1.000-1.030) Urine Protein 30 mg/dL (NEG-TRACE) Urine Glucose (UA) Negative mg/dL (NEG) Urine Ketones (Stick) Negative mg/dL (NEG) Urine Blood Trace (NEG) Urine Nitrite Negative (NEG) Urine Bilirubin Negative (NEG) Urine Urobilinogen Dipstick 0.2 mg/dL (0.2 mg/dL) Urine Leukocyte Esterase Moderate (NEG) Urine RBC Occ /HPF (0-2) Urine WBC 11-20 /HPF (0-4) Urine Squamous Epithelial Cells Mod /LPF Urine Bacteria Few /HPF (0-FEW) Test 10/30/20 20:45 10/31/20 06:15 10/31/20 07:15 10/31/20 11:55 Glucose (Fingerstick) 170 mg/dL (70-99) 102 mg/dL (70-99) 128 mg/dL (70-99) Hemoglobin 8.0 g/dL (13.0-17.5) Sodium Level 137 mmol/L (136-145) Potassium Level 4.6 mmol/L (3.5-5.1) Chloride Level 105 mmol/L (98-107) Carbon Dioxide Level 24 mmol/L (21-32) Anion Gap 8 (6-14) Blood Urea Nitrogen 56 mg/dL (8-26) Creatinine 2.3 mg/dL (0.7-1.3) Estimated GFR (Cockcroft-Gault) 35.8 Glucose Level 114 mg/dL (70-99) Calcium Level 8.6 mg/dL (8.5-10.1) Laboratory Tests Test 10/30/20 16:46 10/30/20 20:45 10/31/20 06:15 10/31/20 07:15 Glucose (Fingerstick) 168 mg/dL (70-99) 170 mg/dL (70-99) 102 mg/dL (70-99) Hemoglobin 8.0 g/dL (13.0-17.5) Sodium Level 137 mmol/L (136-145) Potassium Level 4.6 mmol/L (3.5-5.1) Chloride Level 105 mmol/L (98-107) Carbon Dioxide Level 24 mmol/L (21-32) Anion Gap 8 (6-14) Blood Urea Nitrogen 56 mg/dL (8-26) Creatinine 2.3 mg/dL (0.7-1.3) Estimated GFR (Cockcroft-Gault) 35.8 Glucose Level 114 mg/dL (70-99) Calcium Level 8.6 mg/dL (8.5-10.1) Test 10/31/20 11:55 Glucose (Fingerstick) 128 mg/dL (70-99) Microbiology 10/30/20 Urine Culture - Final, Complete Medications Current Medications Nitroglycerin (Nitro-Bid Oint) 1 inch 1X ONCE TP Last administered on 10/20/20at 13:22; Start 10/20/20 at 13:15; Stop 10/20/20 at 13:16; Status DC Morphine Sulfate (Morphine Sulfate) 4 mg 1X ONCE IV Last administered on 10/20/20at 13:23; Start 10/20/20 at 13:15; Stop 10/20/20 at 13:16; Status DC Furosemide (Lasix) 80 mg 1X ONCE IVP Last administered on 10/20/20at 16:25; Start 10/20/20 at 15:45; Stop 10/20/20 at 15:46; Status DC Hydralazine HCl (Apresoline Inj) 10 mg PRN Q20MIN PRN IVP ELEVATED BP, SEE COMMENTS Last administered on 10/20/20at 16:28; Start 10/20/20 at 15:30 Furosemide (Lasix) 80 mg [id number] PO Last administered on 10/23/20at 08:11; Start 10/21/20 at 09:00; Stop 10/24/20 at 15:14; Status DC Insulin Human Lispro (HumaLOG) 0-9 UNITS TIDWMEALS SQ Last administered on 10/27/20at 08:17; Start 10/20/20 at 17:00 Dextrose (Dextrose 50%-Water Syringe) 12.5 gm PRN Q15MIN PRN IV SEE COMMENTS; Start 10/20/20 at 15:45 Ondansetron HCl (Zofran) 4 mg PRN Q6HRS PRN IVP NAUSEA/VOMITING Last administered on 10/22/20at 11:57; Start 10/20/20 at 16:15 Al Hydroxide/Mg Hydroxide (Mylanta Plus Xs) 30 ml PRN Q3HRS PRN PO HEARTBURN / GAS; Start 10/20/20 at 16:15; Stop 10/31/20 at 12:38; Status DC Calcium Carbonate/ Glycine (Tums) 500 mg PRN Q3HRS PRN PO UPSET STOMACH; Start 10/20/20 at 16:15 Zolpidem Tartrate (Ambien) 5 mg PRN QHS PRN PO INSOMNIA, MAY REPEAT IN 1HR Last administered on 10/20/20at 21:39; Start 10/20/20 at 16:15 Acetaminophen (Tylenol) 650 mg PRN Q6HRS PRN PO Headaches, Temp > 101.5F Last administered on 10/25/20at 14:19; Start 10/20/20 at 16:15 Magnesium Hydroxide (Milk Of Magnesia) 2,400 mg PRN Q12HR PRN PO CONSTIPATION (1ST CHOICE) Last administered on 10/22/20at 06:11; Start 10/20/20 at 16:15; Stop 10/31/20 at 12:37; Status DC Bisacodyl (Dulcolax Supp) 10 mg PRN DAILY PRN OK CONSTIPATION; Start 10/20/20 at 16:15 Heparin Sodium (Porcine) (Heparin Sodium) 5,000 unit Q8HRS SQ Last administered on 10/29/20at 05:59; Start 10/20/20 at 16:30; Stop 10/29/20 at 07:14; Status DC Morphine Sulfate (Morphine Sulfate) 4 mg PRN Q2HR PRN IV MODERATE TO SEVERE PAIN Last administered on 10/31/20at 06:06; Start 10/20/20 at 16:30 Tramadol HCl (Ultram) 50 mg PRN Q6HRS PRN PO MILD TO MODERATE PAIN Last administered on 10/24/20 08:25; Start 10/20/20 at 16:30; Stop 10/30/20 at 20:36; Status DC Amlodipine Besylate (Norvasc) 10 mg DAILY PO Last administered on 10/30/20at 08:42; Start 10/21/20 at 09:00 Aspirin (Aspirin Chewable) 81 mg DAILYWBKFT PO Last administered on 10/31/20 10:01; Start 10/21/20 at 08:00 Clopidogrel Bisulfate (Plavix) 75 mg DAILY PO Last administered on 10/31/20 10:07; Start 10/21/20 at 09:00 Furosemide (Lasix) 80 mg BID92 PO Last administered on 10/21/20 08:54; Start 10/20/20 at 17:30; Stop 10/21/20 at 09:37; Status DC Pantoprazole Sodium (Protonix) 40 mg BIDAC PO Last administered on 10/31/20at 10:07; Start 10/20/20 at 17:30 Senna/Docusate Sodium (Senna Plus) 2 tab PRN QEVNG PRN PO CONSTIPATION; Start 10/20/20 at 17:30 Spironolactone (Aldactone) 25 mg DAILY PO Last administered on 10/21/20at 08:52; Start 10/21/20 at 09:00; Stop 10/21/20 at 14:06; Status DC Tamsulosin HCl (Flomax) 0.4 mg DAILY PO Last administered on 10/31/20 10:07; Start 10/21/20 at 09:00 Carvedilol (Coreg) 25 mg BIDWMEALS PO Last administered on 10/31/20 10:01; Start 10/20/20 at 17:30 Gabapentin (Neurontin) 300 mg TID PO Last administered on 10/31/20 10:06; Start 10/20/20 at 21:00 Hydralazine HCl (Apresoline) 100 mg TID PO Last administered on 10/30/20at 19:59; Start 10/20/20 at 21:00 Insulin Human Lispro (HumaLOG) 30 units TIDWMEALS SQ Last administered on 10/28/20 10:02; Start 10/21/20 at 08:00 Insulin Glargine (Lantus Syringe) 60 unit QHS SQ Last administered on 10/22/20at 21:17; Start 10/20/20 at 21:00; Stop 10/23/20 at 13:07; Status DC Isosorbide Dinitrate (Isordil) 5 mg TID PO Last administered on 10/31/20 10:05; Start 10/20/20 at 21:00 Atorvastatin Calcium (Lipitor) 80 mg QHS PO Last administered on 10/24/20 21:42; Start 10/20/20 at 21:00; Stop 10/25/20 at 13:42; Status DC Lorazepam (Ativan Inj) 1 mg PRN Q4HRS PRN IVP ANXIETY / AGITATION Last administered on 10/22/20 11:57; Start 10/20/20 at 17:30 Insulin Glargine (Lantus Syringe) 70 unit QHS SQ Last administered on 10/30/20at 21:00; Start 10/23/20 at 21:00 Lidocaine (Lidoderm) 2 patch DAILY TD Last administered on 10/31/20 10:09; Start 10/24/20 at 09:00 Miscellaneous (Lidoderm Patch Removal) 1 ea QHS MC Last administered on at 21:00; Start 10/24/20 at 21:00 Polysaccharide Iron Complex (Niferex 150) 150 mg DAILY PO Last administered on 10/31/20 10:08; Start 10/24/20 at 14:00 Sodium Chloride 1,000 ml @ 75 mls/hr [id number] ONCE IV ; Start 10/25/20 at 11:15; Stop 10/25/20 at 13:42; Status DC Sodium Chloride 1,000 ml @ 75 mls/hr [id number] IV Last administered on 10/28/20at 20:48; Start 10/25/20 at 14:00; Stop 10/30/20 at 13:30; Status DC Duloxetine HCl (Cymbalta) 30 mg DAILY PO Last administered on 10/27/20 08:03; Start 10/25/20 at 15:00; Stop 10/27/20 at 13:33; Status DC Lactulose (Lactulose) 20 gm 1X ONCE PO Last administered on 10/26/20at 12:47; Start 10/26/20 at 10:30; Stop 10/26/20 at 10:31; Status DC Lactulose (Lactulose) 20 gm 1X ONCE PO Last administered on 10/26/20at 12:47; Start 10/26/20 at 10:30; Stop 10/26/20 at 10:31; Status DC Duloxetine HCl (Cymbalta) 60 mg DAILY PO Last administered on 10/31/20at 10:01; Start 10/28/20 at 09:00 Furosemide (Lasix) 40 mg 1X ONCE IVP Last administered on 10/30/20at 12:37; Start 10/30/20 at 12:15; Stop 10/30/20 at 12:20; Status DC Morphine Sulfate (Morphine Sulfate) 4 mg 1X ONCE IM ; Start 10/30/20 at 20:45; Stop 10/30/20 at 20:46; Status Cancel Ceftriaxone Sodium (Rocephin) 1 gm Q24H IVP Last administered on 10/30/20at 21:00; Start 10/30/20 at 21:00 Furosemide (Lasix) 40 mg 1X ONCE IVP Last administered on 10/30/20at 21:00; Start 10/30/20 at 21:00; Stop 10/30/20 at 21:01; Status DC Morphine Sulfate (Morphine Sulfate) 4 mg 1X ONCE IV Last administered on 10/30/20at 22:00; Start 10/30/20 at 22:00; Stop 10/30/20 at 22:01; Status DC Fentanyl Citrate (Fentanyl 2ml Vial) 100 mcg STK-MED ONCE .ROUTE ; Start 10/31/20 at 12:18; Stop 10/31/20 at 12:19; Status DC Midazolam HCl (Versed) 2 mg STK-MED ONCE .ROUTE ; Start 10/31/20 at 12:18; Stop 10/31/20 at 12:19; Status DC Heparin Sodium/ Sodium Chloride 1,000 ml @ As Directed STK-MED ONCE .ROUTE ; Start 10/31/20 at 12:19; Stop 10/31/20 at 12:19; Status DC Lidocaine HCl (Lidocaine 1% 20ml Vial) 20 ml STK-MED ONCE .ROUTE ; Start 1 at 12:28; Stop 10/31/20 at 12:28; Status DC Heparin Sodium/ Sodium Chloride (HEPARIN for ARTERIAL LINE FLUSH) 1,000 unit 1X ONCE IART Last administered on 10/31/20at 13:35; Start 10/31/20 at 12:30; Stop 10/31/20 at 12:32; Status DC Heparin Sodium/ Sodium Chloride (HEPARIN for ARTERIAL LINE FLUSH) 1,000 unit 1X ONCE IART Last administered on 10/31/20at 13:35; Start 10/31/20 at 12:30; Stop 10/31/20 at 12:32; Status DC Midazolam HCl (Versed) 2 mg 1X ONCE IV Last administered on 10/31/20at 13:35; Start 10/31/20 at 12:30; Stop 10/31/20 at 12:32; Status DC Fentanyl Citrate (Fentanyl 2ml Vial) 100 mcg 1X ONCE IV Last administered on 10/31/20at 13:35; Start 10/31/20 at 12:30; Stop 10/31/20 at 12:32; Status DC Lidocaine HCl (Lidocaine 1% 20ml Vial) 20 ml 1X ONCE INJ Last administered on 10/31/20at 13:34; Start 10/31/20 at 12:30; Stop 10/31/20 at 12:32; Status DC Acetaminophen/ Hydrocodone Bitart (Lortab 5/325) 1 tab PRN Q6HRS PRN PO PAIN; Start 10/31/20 at 12:30 Furosemide (Lasix) 100 mg STK-MED ONCE .ROUTE ; Start 10/31/20 at 13:19; Stop 10/31/20 at 13:19; Status DC Furosemide (Lasix) 80 mg 1X ONCE IVP Last administered on 10/31/20at 13:36; Start 10/31/20 at 13:30; Stop 10/31/20 at 13:31; Status DC Active Scripts Active Flomax (Tamsulosin Hcl) 0.4 Mg Cap.er.24h 0.4 Mg PO DAILY Children's Aspirin (Aspirin) 81 Mg Tab.chew 81 Mg PO DAILYWBKFT Reported Senna-Docusate Sodium Tablet (Sennosides/Docusate Sodium) 1 Each Tablet 2 Tab PO PRN QEVNG PRN 5 Days Spironolactone 25 Mg Tablet 25 Mg PO DAILY Vitamin D2 (Ergocalciferol (Vitamin D2)) 1,250 Mcg Capsule 1,250 Mcg PO WEEKLY Lasix (Furosemide) 80 Mg Tablet 80 Mg PO BID Clopidogrel (Clopidogrel Bisulfate) 75 Mg Tablet 75 Mg PO DAILY Carvedilol 25 Mg Tablet 25 Mg PO BIDWMEALS Isosorbide Dinitrate 40 Mg Tablet.er 5 Mg PO TID Gabapentin 600 Mg Tablet 300 Mg PO TID Protonix (Pantoprazole Sodium) 40 Mg Tablet.dr 40 Mg PO BID Hydralazine Hcl 100 Mg Tablet 100 Mg PO TID Amlodipine Besylate 10 Mg Tablet 10 Mg PO DAILY Crestor (Rosuvastatin Calcium) 20 Mg Tablet 20 Mg PO QHS Levemir Flexpen (Insulin Detemir) 100 Unit/1 Ml Insuln.pen 60 Unit SQ HS Novolog Flexpen (Insulin Aspart) 100 Unit/1 Ml Insuln.pen 30 Unit SQ TIDAC Vitals/I & O Vital Sign - Last 24 Hours 10/30/20 10/30/20 10/30/20 10/30/20 13:43 13:43 13:44 14:14 Pulse 61 61 Resp 16 16 B/P (MAP) 142/54 142/54 Pulse Ox 93 93 O2 Delivery Nasal Cannula Nasal Cannula O2 Flow Rate 2.0 2.0 10/30/20 10/30/20 10/30/20 10/30/20 15:00 18:12 19:14 19:56 Temp 97.8 98.0 97.8 98.0 Pulse 69 66 66 Resp 22 16 18 B/P (MAP) 114/43 (66) 156/68 165/62 (96) Pulse Ox 93 93 94 O2 Delivery Nasal Cannula Nasal Cannula Nasal Cannula O2 Flow Rate 2.0 2.0 2.0 10/30/20 10/30/20 10/30/20 10/30/20 19:59 20:00 20:00 23:44 Temp 97.7 97.7 Pulse 66 66 63 Resp 18 B/P (MAP) 165/62 165/62 146/89 (108) Pulse Ox 94 O2 Delivery Nasal Cannula Nasal Cannula O2 Flow Rate 2.0 2.0 10/31/20 10/31/20 10/31/20 10/31/20 00:55 03:49 07:00 09:00 Temp 97.9 98.0 97.9 98.0 Pulse 55 74 55 Resp 24 22 B/P (MAP) 136/66 (89) 134/60 (84) 136/66 Pulse Ox 94 95 98 O2 Delivery BiPAP/CPAP BiPAP/CPAP BiPAP/CPAP 10/31/20 10/31/20 10/31/20 10/31/20 10:01 10:05 11:25 12:05 Temp 98.2 98.2 Pulse 55 55 62 Resp 20 B/P (MAP) 136/66 136/66 143/53 (83) Pulse Ox 95 97 O2 Delivery Nasal Cannula Nasal Cannula O2 Flow Rate 2.0 2.0 10/31/20 10/31/20 13:35 13:36 Pulse 62 Resp 18 21 Pulse Ox 96 96 O2 Delivery Nasal Cannula Nasal Cannula O2 Flow Rate 2.0 2.0 Intake and Output 10/30/20 10/30/20 10/31/20 15:00 23:00 07:00 Intake Total 720 ml 900 ml 400 ml Output Total 2000 ml 975 ml Balance 720 ml -1100 ml -575 ml Justicifation of Admission Dx: Justifications for Admission: Justification of Admission Dx: N/A LORRAINE GUNN MD Oct 31, 2020 13:41
--- NOTE | 2020-10-31 14:03 | CARD ---
MR#: [id number] Date of Study: 10/31/2020 Ordering Physician: FRANCISCO RAMIREZ, Referring Physician: FRANCISCO RAMIREZ, Tech: Tawanna Ledezma APPROVED REPORT Technologist: Tawanna Ledezma Nurse: Stephany Moreau R.N. Procedure(s) performed: fl time: 2.5 mins dose: 6.8 gycm2 moderate sedation: 34 mins RHC HISTORY The patient is a 55 year-old male with a history of : diabetes mellitus with treatment, tobacco histo ry() , hypertension, dyslipidemia. INDICATION The indication(s) include : dyspnea. Heart Failure Heart Failure: Yes If Yes, Newly Diagnosed: No If Yes, HF Type: Diastolic If Yes, NYHA Class: Class III PROCEDURE NARRATIVE Reason for procedure: Heart failure and renal failure Details of procedure: After appropriate written informed consent the left neck was prepped and draped in usual sterile fash ion. Under 1% lidocaine anesthesia and ultrasound guidance was used to obtain access into the left i nternal jugular vein via the modified Seldinger technique and a 5 Tristanian sheath was placed without an y difficulty. Next, a 5 Tristanian PA catheter was advanced to the right heart chambers and pressures an d saturations were obtained. At case completion the PA catheter and sheath were removed and hemostas is achieved with manual compression. Findings: RA: 18//13 RV: 67/6/17 PA: 64/20/37 Wedge: 29/46/27 PA saturation 53% Fabio cardiac output 5.55 L/min, cardiac index 2.35 Hemoglobin 8 Conclusion 1. Elevated biventricular filling pressures 2. Moderate pulmonary hypertension with a mean PA pressure of 37, left-sided due to diastolic dysfun ction 3. Cor pulmonale Recommendations 1. Continue diuresis as the patient is currently volume overloaded, monitoring of renal function natalya sely. 2. Continue aggressive risk factor modification including weight loss, treatment of obstructive slee p apnea and hypertension Signed by : Francisco Ramirez, Electronically Approved : 10/31/2020 14:03:00
--- NOTE | 2020-10-31 14:15 | PDOC ---
Date of Service: DATE: 10/31/20 TIME: 14:12 Subjective: Subjective: Talking w/ case management. Objective: Objective: D/w nurse - no GI concerns, had heart cath. Vital Signs: Vital Signs Date Time Temp Pulse Resp B/P (MAP) Pulse Ox O2 Delivery O2 Flow Rate FiO2 10/31/20 13:36 62 21 96 Nasal Cannula 2.0 10/31/20 11:25 98.2 143/53 (83) 98.2 Labs: Laboratory Tests Test 10/30/20 16:46 10/30/20 20:45 10/31/20 07:15 10/31/20 11:55 Glucose (Fingerstick) 168 mg/dL (70-99) 170 mg/dL (70-99) 102 mg/dL (70-99) 128 mg/dL (70-99) Imaging: Card Cath 10/31 Conclusion 1. Elevated biventricular filling pressures 2. Moderate pulmonary hypertension with a mean PA pressure of 37, left-sided due to diastolic dysfunction 3. Cor pulmonale Recommendations 1. Continue diuresis as the patient is currently volume overloaded, monitoring of renal function closely. 2. Continue aggressive risk factor modification including weight loss, treatment of obstructive sleep apnea and hypertension PE: GEN: NAD - talking w/ case management LUNGS: NC 2L HEART: RR ABD: non-distended NEURO/PSYCH: A & O 3 A/P: CHF, CKD CORY GERD COVID negative 2/4 +PCP +cocaine -- Continue PPI, plan for outpt scopes. Justicifation of Admission Dx: Justifications for Admission: Justification of Admission Dx: N/A CHRISTIANE SOLITARIO Oct 31, 2020 14:15
[2020-10-31] MEDS: amLODIPine BESYLATE 10 MG TABLET PO SCH (15:55)
[2020-10-31] MEDS: HYDROcodone/APAP 5/325MG 1 TAB TABLET PO PRN (17:32)
--- NOTE | 2020-10-31 18:23 | PDOC ---
[employer] PROGRESS NOTE Date of Service DOS: DATE: 10/31/20 TIME: 18:19 Chief Complaint Chief Complaint impression Acute respiratory failure with hypoxia Acute diastolic heart failure (CHF) aortic stenosis Elevated brain natriuretic peptide (BNP) level Pulmonary HTN , severe due to cocaine abuse CKD Normocytic anemia Hypertensive urgency moderate mitral regurgitation. Right breast mass Malnutrition normocytic anemia CKD stage 3 B- Seen by [facility] renal . Cr was at his baseline at Presentation to [facility] Peripheral neuropathy, most likely from diabetes exacerbated by acute metabolic issues including anemia and renal failure. Consider acute inflammatory demyelinating neuropathy, 2-11 remains SOA, using bipap at hs poor prognosis due to cocaine abuse 2-12 possibility of visiting with the Pulmonary Hypertension Clinic at [facility]. HE HAS NOT FOLLOWED UP, may benefit from hospice if remains noncompliant and continues cocaine usage 213 transfused today will consult GI ? EGD, AM LABS, IV PROTONIX 10-30 pos urine drug screen for cocaine ,, ct penis, cardiac cath in am mod penile edema 28 MIN pt exam, chart review, > 50% of time spent with exam, chart review, pt care coordination History of Present Illness History of Present Illness 10-31 Seen and evaluated. Still c/o intemittent chesty pain. CT penis yesterday showed soft tissue edema involving the penis scrotum, thought to be related to volume overload given diffuse soft tissue anasarca. LHC today. Discussed with RN. 10-30 CATH IN AM,, moderate penile edema, perhaps related to ascites, will obtain ct penis and scrotum 10-29 remains anemic after one unit, consulted GI , NPO possible PUD , CT ABD, PELVIS 2-12 cr 2.5, transfused, D/W RN, AM CBC 2-11 remains SOA, using cpap at hs poor prognosis due to cocaine abuse, abg today 2-10 Peripheral neuropathy, most likely from diabetes rule out other causes, exacerbated by acute metabolic issues including anemia and renal failure. Consider acute inflammatory demyelinating neuropathy, D/W RN 10/25 - Pt is in moderate distress, states he is profoundly weak and is eager to get to the bottom on this problem. Discussed his continue compliance with cpap machine. Mr oMran is a 54yo M w/ PMHx Diabetes-Type II, High Cholesterol, Hypertens ion, Pancreatitis, CKD 4, presents to the ER with complaint of worsening shortness of breath of the past 3 days. He reports associated intermittent chest pain and bilateral lower extremity swelling. States his symptoms are worse with exertion. Upon arrival in the ED his BNP was 3029. He was placed on BiPAP given IV morphine with improvement of symptoms. States he has not taken any of his home medications today. He does report a tender lump in his right breast for the past 3 weeks, reports a family history of breast cancer. He denies any fever, sick contacts, or known COVID-19 exposure. Will admit patient for further medical management. 10/21: Patient seen and evaluated. Improved on BiPAP overnight. Afebrile, denies chest pain. Blood pressure better controlled. CBG 323 this morning. Of note patient did order two trays of nondiabetic meals, and had fried chicken delivered to his room last night. Discussed importance of cardiac and diabetic diet for his heart health. Continue to diurese with Lasix. Echocardiogram and ultrasound right breast pending. If appropriately diuresed and no concerning findings on right breast ultrasound, Vitals/I&O Vitals/I&O: Vital Signs Date Time Temp Pulse Resp B/P (MAP) Pulse Ox O2 Delivery O2 Flow Rate FiO2 10/31/20 18:01 78 94 Nasal Cannula 2.0 10/31/20 17:32 22 10/31/20 17:32 130/58 10/31/20 15:00 98.3 98.3 I & O 10/30/20 10/30/20 10/31/20 15:00 23:00 07:00 Intake Total 720 ml 900 ml 400 ml Output Total 2000 ml 975 ml Balance 720 ml -1100 ml -575 ml Physical Exam General: Alert, Oriented X3, Cooperative, No acute distress Heart: Regular rate, No murmurs, Other Lungs: Clear, Wheezing, Crackles Abdomen: Soft, No hepatosplenomegaly, Other (MODERATE PENILE SWELLING WITH LUI) Extremities: No cyanosis, Other Skin: No breakdown, No significant lesion Labs Labs: Laboratory Tests Test 10/30/20 20:45 10/31/20 06:15 10/31/20 07:15 10/31/20 11:55 Glucose (Fingerstick) 170 mg/dL (70-99) 102 mg/dL (70-99) 128 mg/dL (70-99) Hemoglobin 8.0 g/dL (13.0-17.5) Sodium Level 137 mmol/L (136-145) Potassium Level 4.6 mmol/L (3.5-5.1) Chloride Level 105 mmol/L (98-107) Carbon Dioxide Level 24 mmol/L (21-32) Anion Gap 8 (6-14) Blood Urea Nitrogen 56 mg/dL (8-26) Creatinine 2.3 mg/dL (0.7-1.3) Estimated GFR (Cockcroft-Gault) 35.8 Glucose Level 114 mg/dL (70-99) Calcium Level 8.6 mg/dL (8.5-10.1) Test 10/31/20 15:37 10/31/20 16:58 Glucose (Fingerstick) 190 mg/dL (70-99) 136 mg/dL (70-99) Assessment and Plan Assessmemt and Plan Problems Medical Problems: (1) Chest pain Status: Acute (2) CHF exacerbation Status: Acute (3) HTN (hypertension) Status: Acute (4) Person under investigation for COVID-19 Status: Acute Comment Review of Relevant I have reviewed the following items karissa (where applicable) has been applied. Medications: Current Medications Medications (Trade) Dose Ordered Sig/Kiera Route PRN Reason Start Time Stop Time Status Last Admin Dose Admin Ceftriaxone Sodium (Rocephin) 1 gm Q24H IVP 10/30/20 21:00 10/30/20 21:00 Furosemide (Lasix) 40 mg 1X ONCE IVP 10/30/20 21:00 10/30/20 21:01 DC 10/30/20 21:00 Morphine Sulfate (Morphine Sulfate) 4 mg 1X ONCE IV 10/30/20 22:00 10/30/20 22:01 DC 10/30/20 22:00 Heparin Sodium/ Sodium Chloride (HEPARIN for ARTERIAL LINE FLUSH) 1,000 unit 1X ONCE IART 10/31/20 12:30 10/31/20 12:32 DC 10/31/20 13:35 Heparin Sodium/ Sodium Chloride (HEPARIN for ARTERIAL LINE FLUSH) 1,000 unit 1X ONCE IART 10/31/20 12:30 10/31/20 12:32 DC 10/31/20 13:35 Midazolam HCl (Versed) 2 mg 1X ONCE IV 10/31/20 12:30 10/31/20 12:32 DC 10/31/20 13:35 Fentanyl Citrate (Fentanyl 2ml Vial) 100 mcg 1X ONCE IV 10/31/20 12:30 10/31/20 12:32 DC 10/31/20 13:35 Lidocaine HCl (Lidocaine 1% 20ml Vial) 20 ml 1X ONCE INJ 10/31/20 12:30 10/31/20 12:32 DC 10/31/20 13:34 Acetaminophen/ Hydrocodone Bitart (Lortab 5/325) 1 tab PRN Q6HRS PRN PO PAIN 10/31/20 12:30 10/31/20 17:32 Furosemide (Lasix) 80 mg 1X ONCE IVP 10/31/20 13:30 10/31/20 13:31 DC 10/31/20 13:36 Justifications for Admission Other Justification Acute respiratory failure with hypoxia, acute diastolic CHF exacerbation, right breast mass ASIA GLYNN MD Oct 31, 2020 18:23
[2020-10-31] MEDS: cefTRIAXone IV Push 1 GM VIAL. IVP SCH (20:54)
[2020-10-31] MEDS: PATCH REMOVAL. MC SCH (21:00)
[2020-10-31] MEDS: ZOLPIDEM 5 MG TABLET. PO PRN (21:02)
[2020-10-31] MEDS: INSULIN GLARGINE SYRINGE. SQ SCH (21:14)
[2020-11-01] MEDS ORDERED: LIDOCAINE 2% JELLY 6ML IN APPLICATOR. MM ONE (02:30)
[2020-11-01 02:43] VITALS: BP 119/53
--- NOTE | 2020-11-01 03:00 | NUR ---
Pt unable to urinate despite several attempts standing at bedside, using bedside commode, and attempting urinal in bed. Bladder scanner at 0100 revealed 540 cc in bladder. Straight cath with lidocaine discussed with patient. Patient able to urinate 50 cc in BSC and desires to wait for further attempts to urinate before straight cath. Pt states bladder "doesn't feel so full, like not painful" at this time. Will continue to monitor and offer further attempt. Pt now sleeping.
[2020-11-01 06:07] LABS: CALCIUM 8.9 mg/dL (8.5-10.1); CREATININE 2.5 mg/dL (0.7-1.3); GFR 32.5; POTASSIUM 4.8 mmol/L (3.5-5.1)
[2020-11-01] MEDS: PANTOPRAZOLE 40 MG TABLET.DR. PO SCH ×2 (07:30→17:39)
[2020-11-01] MEDS: ASPIRIN CHEWABLE 81 MG TABLET. PO SCH (08:00)
[2020-11-01] MEDS: CARVEDILOL 12.5 MG TABLET. PO SCH ×2 (08:00→17:38)
[2020-11-01] MEDS: INSULIN LISPRO 300 UNITS/3 ML VIAL. SQ SCH ×6 (08:00→17:00)
[2020-11-01] MEDS: LIDOCAINE (700MG/PATCH) PATCH. TD SCH (09:00)
[2020-11-01] MEDS: IRON POLYSACCHARIDE COMPLEX 150 MG CAPSULE PO SCH (09:00)
[2020-11-01] MEDS: CLOPIDOGREL BISULFATE 75 MG TABLET PO SCH (09:00)
[2020-11-01] MEDS: amLODIPine BESYLATE 10 MG TABLET PO SCH (09:00)
[2020-11-01] MEDS: GABAPENTIN 300 MG CAPSULE. PO SCH ×3 (09:00→20:23)
[2020-11-01] MEDS: TAMSULOSIN 0.4 MG CAP.ER.24H. PO SCH (09:00)
[2020-11-01] MEDS: ISOSORBIDE DINITRATE 10 MG TABLET. PO SCH ×3 (09:00→20:24)
[2020-11-01] MEDS: DULoxetine HCL 30 MG CAPSULE.DR PO SCH (09:00)
--- NOTE | 2020-11-01 12:52 | PDOC ---
PROGRESS NOTES Date of Service DATE: 11/01/20 TIME: 12:50 Assessment Problems Medical Problems: (1) Chest pain Status: Acute (2) CHF exacerbation Status: Acute (3) HTN (hypertension) Status: Acute (4) Person under investigation for COVID-19 Status: Acute Peripheral neuropathy, most likely from diabetes (hemoglobin A1c is 6.9), labs negative for other causes, exacerbated by acute metabolic issues including anemia and renal failure. Consider acute inflammatory demyelinating neuropathy, but this is unlikely, patient started getting weak at least a year ago. I find no evidence of central nervous system disease including myelopathy. Lab work so far is negative. He denies significant back pain Substance abuse, cocaine Cardiac catheterization, 10/31, elevated biventricular filling pressures and cor pulmonale, planning on medical treatment Plan Consider resuming statin Rehabilitation modalities, needs inpatient rehab, insurance has denied Continue gabapentin and duloxetine. Follow-up with me for outpatient EMG studies Hold on lumbar puncture. Subjective Denies pain Objective Vital Signs Date Time Temp Pulse Resp B/P (MAP) Pulse Ox O2 Delivery O2 Flow Rate FiO2 11/01/20 02:43 98.0 74 23 119/53 (75) 99 Nasal Cannula 2.0 98.0 Intake and Output 11/01/20 07:00 Intake Total 580 ml Output Total 2100 ml Balance -1520 ml Intake Oral 580 ml Output Urine Total 2100 ml PHYSICAL EXAM Alert. Oriented to time, place and person. PERRL. EOMI. CN: no focal findings. Muscle tone: normal. Muscle strength: 4/5 DTR: 0+ Plantar reflex: Flexor Gait: not examined in bed. Sensory exam: Stocking loss. Review of Relevant I have reviewed the following items karissa (where applicable) has been applied. Labs Laboratory Tests Test 10/30/20 16:46 10/30/20 20:45 10/31/20 06:15 10/31/20 07:15 Glucose (Fingerstick) 168 mg/dL (70-99) 170 mg/dL (70-99) 102 mg/dL (70-99) Hemoglobin 8.0 g/dL (13.0-17.5) Sodium Level 137 mmol/L (136-145) Potassium Level 4.6 mmol/L (3.5-5.1) Chloride Level 105 mmol/L (98-107) Carbon Dioxide Level 24 mmol/L (21-32) Anion Gap 8 (6-14) Blood Urea Nitrogen 56 mg/dL (8-26) Creatinine 2.3 mg/dL (0.7-1.3) Estimated GFR (Cockcroft-Gault) 35.8 Glucose Level 114 mg/dL (70-99) Calcium Level 8.6 mg/dL (8.5-10.1) Test 10/31/20 11:55 10/31/20 15:37 10/31/20 16:58 10/31/20 20:01 Glucose (Fingerstick) 128 mg/dL (70-99) 190 mg/dL (70-99) 136 mg/dL (70-99) 100 mg/dL (70-99) Test 11/01/20 05:30 11/01/20 07:50 11/01/20 08:20 11/01/20 12:01 Sodium Level 140 mmol/L (136-145) Potassium Level 4.8 mmol/L (3.5-5.1) Chloride Level 106 mmol/L (98-107) Carbon Dioxide Level 24 mmol/L (21-32) Anion Gap 10 (6-14) Blood Urea Nitrogen 57 mg/dL (8-26) Creatinine 2.5 mg/dL (0.7-1.3) Estimated GFR (Cockcroft-Gault) 32.5 Glucose Level 67 mg/dL (70-99) Calcium Level 8.9 mg/dL (8.5-10.1) Glucose (Fingerstick) 41 mg/dL (70-99) 72 mg/dL (70-99) 132 mg/dL (70-99) Laboratory Tests Test 10/31/20 15:37 10/31/20 16:58 10/31/20 20:01 11/01/20 05:30 Glucose (Fingerstick) 190 mg/dL (70-99) 136 mg/dL (70-99) 100 mg/dL (70-99) Sodium Level 140 mmol/L (136-145) Potassium Level 4.8 mmol/L (3.5-5.1) Chloride Level 106 mmol/L (98-107) Carbon Dioxide Level 24 mmol/L (21-32) Anion Gap 10 (6-14) Blood Urea Nitrogen 57 mg/dL (8-26) Creatinine 2.5 mg/dL (0.7-1.3) Estimated GFR (Cockcroft-Gault) 32.5 Glucose Level 67 mg/dL (70-99) Calcium Level 8.9 mg/dL (8.5-10.1) Test 11/01/20 07:50 11/01/20 08:20 11/01/20 12:01 Glucose (Fingerstick) 41 mg/dL (70-99) 72 mg/dL (70-99) 132 mg/dL (70-99) Microbiology 10/30/20 Urine Culture - Final, Complete Medications Current Medications Nitroglycerin (Nitro-Bid Oint) 1 inch 1X ONCE TP Last administered on 10/20/20at 13:22; Start 10/20/20 at 13:15; Stop 10/20/20 at 13:16; Status DC Morphine Sulfate (Morphine Sulfate) 4 mg 1X ONCE IV Last administered on 10/20/20at 13:23; Start 10/20/20 at 13:15; Stop 10/20/20 at 13:16; Status DC Furosemide (Lasix) 80 mg 1X ONCE IVP Last administered on 10/20/20at 16:25; Start 10/20/20 at 15:45; Stop 10/20/20 at 15:46; Status DC Hydralazine HCl (Apresoline Inj) 10 mg PRN Q20MIN PRN IVP ELEVATED BP, SEE COMMENTS Last administered on 10/20/20at 16:28; Start 10/20/20 at 15:30 Furosemide (Lasix) 80 mg [id number] PO Last administered on 10/23/20at 08:11; Start 10/21/20 at 09:00; Stop 10/24/20 at 15:14; Status DC Insulin Human Lispro (HumaLOG) 0-9 UNITS TIDWMEALS SQ Last administered on 10/27/20at 08:17; Start 10/20/20 at 17:00 Dextrose (Dextrose 50%-Water Syringe) 12.5 gm PRN Q15MIN PRN IV SEE COMMENTS; Start 10/20/20 at 15:45 Ondansetron HCl (Zofran) 4 mg PRN Q6HRS PRN IVP NAUSEA/VOMITING Last administered on 10/22/20at 11:57; Start 10/20/20 at 16:15 Al Hydroxide/Mg Hydroxide (Mylanta Plus Xs) 30 ml PRN Q3HRS PRN PO HEARTBURN / GAS; Start 10/20/20 at 16:15; Stop 10/31/20 at 12:38; Status DC Calcium Carbonate/ Glycine (Tums) 500 mg PRN Q3HRS PRN PO UPSET STOMACH; Start 10/20/20 at 16:15 Zolpidem Tartrate (Ambien) 5 mg PRN QHS PRN PO INSOMNIA, MAY REPEAT IN 1HR Last administered on 10/31/20at 21:02; Start 10/20/20 at 16:15 Acetaminophen (Tylenol) 650 mg PRN Q6HRS PRN PO Headaches, Temp > 101.5F Last administered on 10/25/20at 14:19; Start 10/20/20 at 16:15 Magnesium Hydroxide (Milk Of Magnesia) 2,400 mg PRN Q12HR PRN PO CONSTIPATION (1ST CHOICE) Last administered on 10/22/20at 06:11; Start 10/20/20 at 16:15; Stop 10/31/20 at 12:37; Status DC Bisacodyl (Dulcolax Supp) 10 mg PRN DAILY PRN CO CONSTIPATION; Start 10/20/20 at 16:15 Heparin Sodium (Porcine) (Heparin Sodium) 5,000 unit Q8HRS SQ Last administered on 10/29/20at 05:59; Start 10/20/20 at 16:30; Stop 10/29/20 at 07:14; Status DC Morphine Sulfate (Morphine Sulfate) 4 mg PRN Q2HR PRN IV MODERATE TO SEVERE PAIN Last administered on 10/31/20at 20:55; Start 10/20/20 at 16:30 Tramadol HCl (Ultram) 50 mg PRN Q6HRS PRN PO MILD TO MODERATE PAIN Last administered on 10/24/20at 08:25; Start 10/20/20 at 16:30; Stop 10/30/20 at 20:36; Status DC Amlodipine Besylate (Norvasc) 10 mg DAILY PO Last administered on 10/31/20at 15:55; Start 10/21/20 at 09:00 Aspirin (Aspirin Chewable) 81 mg DAILYWBKFT PO Last administered on 10/31/20at 10:01; Start 10/21/20 at 08:00 Clopidogrel Bisulfate (Plavix) 75 mg DAILY PO Last administered on 10/31/20 10:07; Start 10/21/20 at 09:00 Furosemide (Lasix) 80 mg BID92 PO Last administered on 10/21/20 08:54; Start 10/20/20 at 17:30; Stop 10/21/20 at 09:37; Status DC Pantoprazole Sodium (Protonix) 40 mg BIDAC PO Last administered on 10/31/20 15:55; Start 10/20/20 at 17:30 Senna/Docusate Sodium (Senna Plus) 2 tab PRN QEVNG PRN PO CONSTIPATION; Start 10/20/20 at 17:30 Spironolactone (Aldactone) 25 mg DAILY PO Last administered on 10/21/20 08:52; Start 10/21/20 at 09:00; Stop 10/21/20 at 14:06; Status DC Tamsulosin HCl (Flomax) 0.4 mg DAILY PO Last administered on 10/31/20 10:07; Start 10/21/20 at 09:00 Carvedilol (Coreg) 25 mg BIDWMEALS PO Last administered on 10/31/20 17:32; Start 10/20/20 at 17:30 Gabapentin (Neurontin) 300 mg TID PO Last administered on 10/31/20 20:57; Start 10/20/20 at 21:00 Hydralazine HCl (Apresoline) 100 mg TID PO Last administered on 10/31/20 20:57; Start 10/20/20 at 21:00 Insulin Human Lispro (HumaLOG) 30 units TIDWMEALS SQ Last administered on 10/31 15:58; Start 10/21/20 at 08:00 Insulin Glargine (Lantus Syringe) 60 unit QHS SQ Last administered on 10/22/20 21:17; Start 10/20/20 at 21:00; Stop 10/23/20 at 13:07; Status DC Isosorbide Dinitrate (Isordil) 5 mg TID PO Last administered on 10/31/20 20:58; Start 10/20/20 at 21:00 Atorvastatin Calcium (Lipitor) 80 mg QHS PO Last administered on 10/24/20at 21:42; Start 10/20/20 at 21:00; Stop 10/25/20 at 13:42; Status DC Lorazepam (Ativan Inj) 1 mg PRN Q4HRS PRN IVP ANXIETY / AGITATION Last administered on 10/22/20at 11:57; Start 10/20/20 at 17:30 Insulin Glargine (Lantus Syringe) 70 unit QHS SQ Last administered on 10/31/20at 21:14; Start 10/23/20 at 21:00 Lidocaine (Lidoderm) 2 patch DAILY TD Last administered on 10/31/20at 10:09; Start 10/24/20 at 09:00 Miscellaneous (Lidoderm Patch Removal) 1 ea QHS MC Last administered on 10/31/20at 21:00; Start 10/24/20 at 21:00 Polysaccharide Iron Complex (Niferex 150) 150 mg DAILY PO Last administered on 10/31/20at 10:08; Start 10/24/20 at 14:00 Sodium Chloride 1,000 ml @ 75 mls/hr [id number] ONCE IV ; Start 10/25/20 at 11:15; Stop 10/25/20 at 13:42; Status DC Sodium Chloride 1,000 ml @ 75 mls/hr [id number] IV Last administered on 10/28/20at 20:48; Start 10/25/20 at 14:00; Stop 10/30/20 at 13:30; Status DC Duloxetine HCl (Cymbalta) 30 mg DAILY PO Last administered on 10/27/20at 08:03; Start 10/25/20 at 15:00; Stop 10/27/20 at 13:33; Status DC Lactulose (Lactulose) 20 gm 1X ONCE PO Last administered on 10/26/20at 12:47; Start 10/26/20 at 10:30; Stop 10/26/20 at 10:31; Status DC Lactulose (Lactulose) 20 gm 1X ONCE PO Last administered on 10/26/20at 12:47; Start 10/26/20 at 10:30; Stop 10/26/20 at 10:31; Status DC Duloxetine HCl (Cymbalta) 60 mg DAILY PO Last administered on 10/31/20at 10:01; Start 10/28/20 at 09:00 Furosemide (Lasix) 40 mg 1X ONCE IVP Last administered on 10/30/20at 12:37; Start 10/30/20 at 12:15; Stop 10/30/20 at 12:20; Status DC Morphine Sulfate (Morphine Sulfate) 4 mg 1X ONCE IM ; Start 10/30/20 at 20:45; Stop 10/30/20 at 20:46; Status Cancel Ceftriaxone Sodium (Rocephin) 1 gm Q24H IVP Last administered on 10/31/20at 20:54; Start 10/30/20 at 21:00 Furosemide (Lasix) 40 mg 1X ONCE IVP Last administered on 10/30/20at 21:00; Start 10/30/20 at 21:00; Stop 10/30/20 at 21:01; Status DC Morphine Sulfate (Morphine Sulfate) 4 mg 1X ONCE IV Last administered on 10/30/20at 22:00; Start 10/30/20 at 22:00; Stop 10/30/20 at 22:01; Status DC Fentanyl Citrate (Fentanyl 2ml Vial) 100 mcg STK-MED ONCE .ROUTE ; Start 10/31/20 at 12:18; Stop 10/31/20 at 12:19; Status DC Midazolam HCl (Versed) 2 mg STK-MED ONCE .ROUTE ; Start 10/31/20 at 12:18; Stop 10/31/20 at 12:19; Status DC Heparin Sodium/ Sodium Chloride 1,000 ml @ As Directed STK-MED ONCE .ROUTE ; Start 10/31/20 at 12:19; Stop 10/31/20 at 12:19; Status DC Lidocaine HCl (Lidocaine 1% 20ml Vial) 20 ml STK-MED ONCE .ROUTE ; Start 10/31/20 at 12:28; Stop 10/31/20 at 12:28; Status DC Heparin Sodium/ Sodium Chloride (HEPARIN for ARTERIAL LINE FLUSH) 1,000 unit 1X ONCE IART Last administered on 10/31/20at 13:35; Start 10/31/20 at 12:30; Stop 10/31/20 at 12:32; Status DC Heparin Sodium/ Sodium Chloride (HEPARIN for ARTERIAL LINE FLUSH) 1,000 unit 1X ONCE IART Last administered on 10/31/20at 13:35; Start 10/31/20 at 12:30; Stop 10/31/20 at 12:32; Status DC Midazolam HCl (Versed) 2 mg 1X ONCE IV Last administered on 10/31/20at 13:35; Start 10/31/20 at 12:30; Stop 10/31/20 at 12:32; Status DC Fentanyl Citrate (Fentanyl 2ml Vial) 100 mcg 1X ONCE IV Last administered on 10/31/20at 13:35; Start 10/31/20 at 12:30; Stop 10/31/20 at 12:32; Status DC Lidocaine HCl (Lidocaine 1% 20ml Vial) 20 ml 1X ONCE INJ Last administered on 10/31/20at 13:34; Start 10/31/20 at 12:30; Stop 10/31/20 at 12:32; Status DC Acetaminophen/ Hydrocodone Bitart (Lortab 5/325) 1 tab PRN Q6HRS PRN PO PAIN Last administered on 10/31/20at 17:32; Start 10/31/20 at 12:30 Furosemide (Lasix) 100 mg STK-MED ONCE .ROUTE ; Start 10/31/20 at 13:19; Stop 10/31/20 at 13:19; Status DC Furosemide (Lasix) 80 mg 1X ONCE IVP Last administered on 10/31/20at 13:36; Start 10/31/20 at 13:30; Stop 10/31/20 at 13:31; Status DC Lidocaine HCl (Glydo (Lidocaine) Jelly) 1 nathalie 1X ONCE MM ; Start 11/01/20 at 02:30; Stop 11/01/20 at 02:31; Status DC Active Scripts Active Flomax (Tamsulosin Hcl) 0.4 Mg Cap.er.24h 0.4 Mg PO DAILY Children's Aspirin (Aspirin) 81 Mg Tab.chew 81 Mg PO DAILYWBKFT Reported Senna-Docusate Sodium Tablet (Sennosides/Docusate Sodium) 1 Each Tablet 2 Tab PO PRN QEVNG PRN 5 Days Spironolactone 25 Mg Tablet 25 Mg PO DAILY Vitamin D2 (Ergocalciferol (Vitamin D2)) 1,250 Mcg Capsule 1,250 Mcg PO WEEKLY Lasix (Furosemide) 80 Mg Tablet 80 Mg PO BID Clopidogrel (Clopidogrel Bisulfate) 75 Mg Tablet 75 Mg PO DAILY Carvedilol 25 Mg Tablet 25 Mg PO BIDWMEALS Isosorbide Dinitrate 40 Mg Tablet.er 5 Mg PO TID Gabapentin 600 Mg Tablet 300 Mg PO TID Protonix (Pantoprazole Sodium) 40 Mg Tablet.dr 40 Mg PO BID Hydralazine Hcl 100 Mg Tablet 100 Mg PO TID Amlodipine Besylate 10 Mg Tablet 10 Mg PO DAILY Crestor (Rosuvastatin Calcium) 20 Mg Tablet 20 Mg PO QHS Levemir Flexpen (Insulin Detemir) 100 Unit/1 Ml Insuln.pen 60 Unit SQ HS Novolog Flexpen (Insulin Aspart) 100 Unit/1 Ml Insuln.pen 30 Unit SQ TIDAC Vitals/I & O Vital Sign - Last 24 Hours 10/31/20 10/31/20 10/31/20 10/31/20 13:35 13:36 14:30 14:45 Pulse 62 67 64 Resp 18 21 B/P (MAP) 144/65 (91) 133/67 (89) Pulse Ox 96 96 O2 Delivery Nasal Cannula Nasal Cannula O2 Flow Rate 2.0 2.0 10/31/20 10/31/20 10/31/20 10/31/20 15:00 15:00 15:15 15:30 Temp 98.3 98.3 Pulse 78 62 75 61 Resp 18 B/P (MAP) 130/58 (82) 140/71 (94) 160/55 (90) 154/77 (102) Pulse Ox 94 O2 Delivery Nasal Cannula O2 Flow Rate 2.0 10/31/20 10/31/20 10/31/20 10/31/20 15:50 15:52 15:55 17:32 Pulse 78 78 78 78 B/P (MAP) 130/58 130/58 130/58 130/58 10/31/20 10/31/20 10/31/20 10/31/20 17:32 18:01 18:50 19:00 Temp 97.8 97.8 Pulse 78 61 Resp 22 20 18 B/P (MAP) 127/57 (80) Pulse Ox 94 94 100 100 O2 Delivery Nasal Cannula Nasal Cannula Nasal Cannula Nasal Cannula O2 Flow Rate 2.0 2.0 2.0 2.0 10/31/20 10/31/20 10/31/20 10/31/20 19:46 20:55 20:57 20:58 Pulse 68 68 Resp 18 B/P (MAP) 127/57 127/57 Pulse Ox 100 O2 Delivery Nasal Cannula Nasal Cannula O2 Flow Rate 2.0 2.0 2/1510/31/20 11/01/20 11/01/20 21:30 23:00 00:22 02:43 Temp 97.7 98.0 97.7 98.0 Pulse 56 74 Resp 20 23 23 B/P (MAP) 132/61 (84) 119/53 (75) Pulse Ox 94 99 94 99 O2 Delivery Nasal Cannula BiPAP/CPAP BiPAP/CPAP Nasal Cannula O2 Flow Rate 2.0 2.0 Intake and Output 10/31/20 10/31/20 11/01/20 15:00 23:00 07:00 Intake Total 480 ml 100 ml Output Total 500 ml 1550 ml 50 ml Balance -500 ml -1070 ml 50 ml Justicifation of Admission Dx: Justifications for Admission: Justification of Admission Dx: N/A LORRAINE GUNN MD Nov 01, 2020 12:52
[2020-11-01 15:00] VITALS: BP 150/51
[2020-11-01] MEDS: HYDROcodone/APAP 5/325MG 1 TAB TABLET PO PRN (15:25)
--- NOTE | 2020-11-01 17:57 | PDOC ---
PROGRESS NOTES Date of Service DATE: 11/01/20 TIME: 17:51 Subjective Subjective Patient seen and evaluated. Objective Objective Vital Signs Date Time Temp Pulse Resp B/P (MAP) Pulse Ox O2 Delivery O2 Flow Rate FiO2 11/01/20 17:38 69 146/73 11/01/20 16:25 20 97 Nasal Cannula 2.0 11/01/20 15:00 98.1 98.1 Intake and Output 11/01/20 07:00 Intake Total 580 ml Output Total 2100 ml Balance -1520 ml Intake Oral 580 ml Output Urine Total 2100 ml Physical Exam Abdomen: Normal bowel sounds Heart: Regular rate General: mild distress Lungs: Other (Mildly decreased breath sounds) Assessment Assessment Problems Medical Problems: (1) Chest pain Status: Acute (2) CHF exacerbation Status: Acute (3) HTN (hypertension) Status: Acute (4) Person under investigation for COVID-19 Status: Acute Acute on chronic diastolic heart failure. Improved. Echocardiogram with normal LV ejection fraction with moderate mitral regurgitation and moderate pulmonary hypertension. Right heart catheterization yesterday. RA pressures 18/26/13, RV 67/6/17, PA 64/20/37, wedge 29/46/27, PA saturation 53%. Fabio cardiac output 5.55 L/min, cardiac index 2.35. Creatinine mildly increased today at 2.5. Renal is following the patient. We will continue diuresis as tolerated. Chronic kidney disease. Creatinine mildly elevated today. Followed by the renal service. With a creatinine elevated Hypertension. Improved. Prior history of peripheral arterial disease status post right femoropopliteal bypass for ischemic foot pain in 2016 Dyslipidemia Substance abuse Coronary artery disease with a prior history of moderate coronary atherosclerosis noted in the left circumflex system in 2017 at heart catheterization at . [facility] in 2019 without any significant ischemia with preserved LV function Comment Review of Relevant I have reviewed the following items karissa (where applicable) has been applied. Labs Laboratory Tests Test 10/30/20 20:45 10/31/20 06:15 10/31/20 07:15 10/31/20 11:55 Glucose (Fingerstick) 170 mg/dL (70-99) 102 mg/dL (70-99) 128 mg/dL (70-99) Hemoglobin 8.0 g/dL (13.0-17.5) Sodium Level 137 mmol/L (136-145) Potassium Level 4.6 mmol/L (3.5-5.1) Chloride Level 105 mmol/L (98-107) Carbon Dioxide Level 24 mmol/L (21-32) Anion Gap 8 (6-14) Blood Urea Nitrogen 56 mg/dL (8-26) Creatinine 2.3 mg/dL (0.7-1.3) Estimated GFR (Cockcroft-Gault) 35.8 Glucose Level 114 mg/dL (70-99) Calcium Level 8.6 mg/dL (8.5-10.1) Test 10/31/20 15:37 10/31/20 16:58 10/31/20 20:01 11/01/20 05:30 Glucose (Fingerstick) 190 mg/dL (70-99) 136 mg/dL (70-99) 100 mg/dL (70-99) Sodium Level 140 mmol/L (136-145) Potassium Level 4.8 mmol/L (3.5-5.1) Chloride Level 106 mmol/L (98-107) Carbon Dioxide Level 24 mmol/L (21-32) Anion Gap 10 (6-14) Blood Urea Nitrogen 57 mg/dL (8-26) Creatinine 2.5 mg/dL (0.7-1.3) Estimated GFR (Cockcroft-Gault) 32.5 Glucose Level 67 mg/dL (70-99) Calcium Level 8.9 mg/dL (8.5-10.1) Test 11/01/20 07:50 11/01/20 08:20 11/01/20 12:01 11/01/20 17:33 Glucose (Fingerstick) 41 mg/dL (70-99) 72 mg/dL (70-99) 132 mg/dL (70-99) 138 mg/dL (70-99) Laboratory Tests Test 10/31/20 20:01 11/01/20 05:30 11/01/20 07:50 11/01/20 08:20 Glucose (Fingerstick) 100 mg/dL (70-99) 41 mg/dL (70-99) 72 mg/dL (70-99) Sodium Level 140 mmol/L (136-145) Potassium Level 4.8 mmol/L (3.5-5.1) Chloride Level 106 mmol/L (98-107) Carbon Dioxide Level 24 mmol/L (21-32) Anion Gap 10 (6-14) Blood Urea Nitrogen 57 mg/dL (8-26) Creatinine 2.5 mg/dL (0.7-1.3) Estimated GFR (Cockcroft-Gault) 32.5 Glucose Level 67 mg/dL (70-99) Calcium Level 8.9 mg/dL (8.5-10.1) Test 11/01/20 12:01 11/01/20 17:33 Glucose (Fingerstick) 132 mg/dL (70-99) 138 mg/dL (70-99) Microbiology 10/31/20 Gram Stain - Final, Resulted 10/31/20 Aerobic and Anaerobic Culture, Resulted Pending 10/30/20 Urine Culture - Final, Complete Medications Current Medications Nitroglycerin (Nitro-Bid Oint) 1 inch 1X ONCE TP Last administered on 10/20/20at 13:22; Start 10/20/20 at 13:15; Stop 10/20/20 at 13:16; Status DC Morphine Sulfate (Morphine Sulfate) 4 mg 1X ONCE IV Last administered on 10/20/20at 13:23; Start 10/20/20 at 13:15; Stop 10/20/20 at 13:16; Status DC Furosemide (Lasix) 80 mg 1X ONCE IVP Last administered on 10/20/20at 16:25; Start 10/20/20 at 15:45; Stop 10/20/20 at 15:46; Status DC Hydralazine HCl (Apresoline Inj) 10 mg PRN Q20MIN PRN IVP ELEVATED BP, SEE COMMENTS Last administered on 10/20/20at 16:28; Start 10/20/20 at 15:30 Furosemide (Lasix) 80 mg [id number] PO Last administered on 10/23/20at 08:11; Start 10/21/20 at 09:00; Stop 10/24/20 at 15:14; Status DC Insulin Human Lispro (HumaLOG) 0-9 UNITS TIDWMEALS SQ Last administered on 10/27/20at 08:17; Start 10/20/20 at 17:00 Dextrose (Dextrose 50%-Water Syringe) 12.5 gm PRN Q15MIN PRN IV SEE COMMENTS; Start 10/20/20 at 15:45 Ondansetron HCl (Zofran) 4 mg PRN Q6HRS PRN IVP NAUSEA/VOMITING Last admin istered on 10/22/20at 11:57; Start 10/20/20 at 16:15 Al Hydroxide/Mg Hydroxide (Mylanta Plus Xs) 30 ml PRN Q3HRS PRN PO HEARTBURN / GAS; Start 10/20/20 at 16:15; Stop 10/31/20 at 12:38; Status DC Calcium Carbonate/ Glycine (Tums) 500 mg PRN Q3HRS PRN PO UPSET STOMACH; Start 10/20/20 at 16:15 Zolpidem Tartrate (Ambien) 5 mg PRN QHS PRN PO INSOMNIA, MAY REPEAT IN 1HR Last administered on 10/31/20at 21:02; Start 10/20/20 at 16:15 Acetaminophen (Tylenol) 650 mg PRN Q6HRS PRN PO Headaches, Temp > 101.5F Last administered on 10/25/20at 14:19; Start 10/20/20 at 16:15 Magnesium Hydroxide (Milk Of Magnesia) 2,400 mg PRN Q12HR PRN PO CONSTIPATION (1ST CHOICE) Last administered on 10/22/20at 06:11; Start 10/20/20 at 16:15; Stop 10/31/20 at 12:37; Status DC Bisacodyl (Dulcolax Supp) 10 mg PRN DAILY PRN MD CONSTIPATION; Start 10/20/20 at 16:15 Heparin Sodium (Porcine) (Heparin Sodium) 5,000 unit Q8HRS SQ Last administered on 10/29/20at 05:59; Start 10/20/20 at 16:30; Stop 10/29/20 at 07:14; Status DC Morphine Sulfate (Morphine Sulfate) 4 mg PRN Q2HR PRN IV MODERATE TO SEVERE PAIN Last administered on 10/31/20at 20:55; Start 10/20/20 at 16:30 Tramadol HCl (Ultram) 50 mg PRN Q6HRS PRN PO MILD TO MODERATE PAIN Last administered on 10/24/20at 08:25; Start 10/20/20 at 16:30; Stop 10/30/20 at 20:36; Status DC Amlodipine Besylate (Norvasc) 10 mg DAILY PO Last administered on 11/01/20at 09:00; Start 10/21/20 at 09:00 Aspirin (Aspirin Chewable) 81 mg DAILYWBKFT PO Last administered on 11/01/20at 08:00; Start 10/21/20 at 08:00 Clopidogrel Bisulfate (Plavix) 75 mg DAILY PO Last administered on 11/01/20at 09:00; Start 10/21/20 at 09:00 Furosemide (Lasix) 80 mg BID92 PO Last administered on 10/21/20 08:54; Start 10/20/20 at 17:30; Stop 10/21/20 at 09:37; Status DC Pantoprazole Sodium (Protonix) 40 mg BIDAC PO Last administered on 11/01/20 17:39; Start 10/20/20 at 17:30 Senna/Docusate Sodium (Senna Plus) 2 tab PRN QEVNG PRN PO CONSTIPATION; Start 10/20/20 at 17:30 Spironolactone (Aldactone) 25 mg DAILY PO Last administered on 10/21/20 08:52; Start 10/21/20 at 09:00; Stop 10/21/20 at 14:06; Status DC Tamsulosin HCl (Flomax) 0.4 mg DAILY PO Last administered on 11/01/20at 09:00; Start 10/21/20 at 09:00 Carvedilol (Coreg) 25 mg BIDWMEALS PO Last administered on 11/01/20 17:38; Start 10/20/20 at 17:30 Gabapentin (Neurontin) 300 mg TID PO Last administered on 11/01/20 14:00; Start 10/20/20 at 21:00 Hydralazine HCl (Apresoline) 100 mg TID PO Last administered on 11/01/20at 14:00; Start 10/20/20 at 21:00 Insulin Human Lispro (HumaLOG) 30 units TIDWMEALS SQ Last administered on 10/31/20at 15:58; Start 10/21/20 at 08:00 Insulin Glargine (Lantus Syringe) 60 unit QHS SQ Last administered on 10/22/20at 21:17; Start 10/20/20 at 21:00; Stop 10/23/20 at 13:07; Status DC Isosorbide Dinitrate (Isordil) 5 mg TID PO Last administered on 11/01/20at 14:00; Start 10/20/20 at 21:00 Atorvastatin Calcium (Lipitor) 80 mg QHS PO Last administered on 10/24/20at 21:42; Start 10/20/20 at 21:00; Stop 10/25/20 at 13:42; Status DC Lorazepam (Ativan Inj) 1 mg PRN Q4HRS PRN IVP ANXIETY / AGITATION Last administered on 10/22/20at 11:57; Start 10/20/20 at 17:30 Insulin Glargine (Lantus Syringe) 70 unit QHS SQ Last administered on 10/31/20at 21:14; Start 10/23/20 at 21:00 Lidocaine (Lidoderm) 2 patch DAILY TD Last administered on 11/01/20 09:00; S tart 10/24/20 at 09:00 Miscellaneous (Lidoderm Patch Removal) 1 ea QHS MC Last administered on 10/31/20at 21:00; Start 10/24/20 at 21:00 Polysaccharide Iron Complex (Niferex 150) 150 mg DAILY PO Last administered on 11/01/20at 09:00; Start 10/24/20 at 14:00 Sodium Chloride 1,000 ml @ 75 mls/hr [id number] ONCE IV ; Start 10/25/20 at 11:15; Stop 10/25/20 at 13:42; Status DC Sodium Chloride 1,000 ml @ 75 mls/hr [id number] IV Last administered on 10/28/20at 20:48; Start 10/25/20 at 14:00; Stop 10/30/20 at 13:30; Status DC Duloxetine HCl (Cymbalta) 30 mg DAILY PO Last administered on 10/27/20at 08:03; Start 10/25/20 at 15:00; Stop 10/27/20 at 13:33; Status DC Lactulose (Lactulose) 20 gm 1X ONCE PO Last administered on 10/26/20at 12:47; Start 10/26/20 at 10:30; Stop 10/26/20 at 10:31; Status DC Lactulose (Lactulose) 20 gm 1X ONCE PO Last administered on 10/26/20at 12:47; Start 10/26/20 at 10:30; Stop 10/26/20 at 10:31; Status DC Duloxetine HCl (Cymbalta) 60 mg DAILY PO Last administered on 11/01/20at 09:00; Start 10/28/20 at 09:00 Furosemide (Lasix) 40 mg 1X ONCE IVP Last administered on 10/30/20at 12:37; Start 10/30/20 at 12:15; Stop 10/30/20 at 12:20; Status DC Morphine Sulfate (Morphine Sulfate) 4 mg 1X ONCE IM ; Start 10/30/20 at 20:45; Stop 10/30/20 at 20:46; Status Cancel Ceftriaxone Sodium (Rocephin) 1 gm Q24H IVP Last administered on 10/31/20at 20:54; Start 10/30/20 at 21:00 Furosemide (Lasix) 40 mg 1X ONCE IVP Last administered on 10/30/20at 21:00; Start 10/30/20 at 21:00; Stop 10/30/20 at 21:01; Status DC Morphine Sulfate (Morphine Sulfate) 4 mg 1X ONCE IV Last administered on 10/30/20at 22:00; Start 10/30/20 at 22:00; Stop 10/30/20 at 22:01; Status DC Fentanyl Citrate (Fentanyl 2ml Vial) 100 mcg STK-MED ONCE .ROUTE ; Start 10/31/20 at 12:18; Stop 10/31/20 at 12:19; Status DC Midazolam HCl (Versed) 2 mg STK-MED ONCE .ROUTE ; Start 10/31/20 at 12:18; Stop 10/31/20 at 12:19; Status DC Heparin Sodium/ Sodium Chloride 1,000 ml @ As Directed STK-MED ONCE .ROUTE ; Start 10/31/20 at 12:19; Stop 10/31/20 at 12:19; Status DC Lidocaine HCl (Lidocaine 1% 20ml Vial) 20 ml STK-MED ONCE .ROUTE ; Start 10/31/20 at 12:28; Stop 10/31/20 at 12:28; Status DC Heparin Sodium/ Sodium Chloride (HEPARIN for ARTERIAL LINE FLUSH) 1,000 unit 1X ONCE IART Last administered on 10/31/20at 13:35; Start 10/31/20 at 12:30; Stop 10/31/20 at 12:32; Status DC Heparin Sodium/ Sodium Chloride (HEPARIN for ARTERIAL LINE FLUSH) 1,000 unit 1X ONCE IART Last administered on 10/31/20at 13:35; Start 10/31/20 at 12:30; Stop 10/31/20 at 12:32; Status DC Midazolam HCl (Versed) 2 mg 1X ONCE IV Last administered on 10/31/20at 13:35; Start 10/31/20 at 12:30; Stop 10/31/20 at 12:32; Status DC Fentanyl Citrate (Fentanyl 2ml Vial) 100 mcg 1X ONCE IV Last administered on 10/31/20at 13:35; Start 10/31/20 at 12:30; Stop 10/31/20 at 12:32; Status DC Lidocaine HCl (Lidocaine 1% 20ml Vial) 20 ml 1X ONCE INJ Last administered on 10/31/20at 13:34; Start 10/31/20 at 12:30; Stop 10/31/20 at 12:32; Status DC Acetaminophen/ Hydrocodone Bitart (Lortab 5/325) 1 tab PRN Q6HRS PRN PO PAIN Last administered on 11/01/20at 15:25; Start 10/31/20 at 12:30 Furosemide (Lasix) 100 mg STK-MED ONCE .ROUTE ; Start 10/31/20 at 13:19; Stop 10/31/20 at 13:19; Status DC Furosemide (Lasix) 80 mg 1X ONCE IVP Last administered on 10/31/20at 13:36; Start 10/31/20 at 13:30; Stop 10/31/20 at 13:31; Status DC Lidocaine HCl (Glydo (Lidocaine) Jelly) 1 nathalie 1X ONCE MM ; Start 11/01/20 at 02:30; Stop 11/01/20 at 02:31; Status DC Active Scripts Active Flomax (Tamsulosin Hcl) 0.4 Mg Cap.er.24h 0.4 Mg PO DAILY Children's Aspirin (Aspirin) 81 Mg Tab.chew 81 Mg PO DAILYWBKFT Reported Senna-Docusate Sodium Tablet (Sennosides/Docusate Sodium) 1 Each Tablet 2 Tab PO PRN QEVNG PRN 5 Days Spironolactone 25 Mg Tablet 25 Mg PO DAILY Vitamin D2 (Ergocalciferol (Vitamin D2)) 1,250 Mcg Capsule 1,250 Mcg PO WEEKLY Lasix (Furosemide) 80 Mg Tablet 80 Mg PO BID Clopidogrel (Clopidogrel Bisulfate) 75 Mg Tablet 75 Mg PO DAILY Carvedilol 25 Mg Tablet 25 Mg PO BIDWMEALS Isosorbide Dinitrate 40 Mg Tablet.er 5 Mg PO TID Gabapentin 600 Mg Tablet 300 Mg PO TID Protonix (Pantoprazole Sodium) 40 Mg Tablet.dr 40 Mg PO BID Hydralazine Hcl 100 Mg Tablet 100 Mg PO TID Amlodipine Besylate 10 Mg Tablet 10 Mg PO DAILY Crestor (Rosuvastatin Calcium) 20 Mg Tablet 20 Mg PO QHS Levemir Flexpen (Insulin Detemir) 100 Unit/1 Ml Insuln.pen 60 Unit SQ HS Novolog Flexpen (Insulin Aspart) 100 Unit/1 Ml Insuln.pen 30 Unit SQ TIDAC Vitals/I & O Vital Sign - Last 24 Hours 10/31/20 10/31/20 10/31/20 10/31/20 18:01 18:50 19:00 19:46 Temp 97.8 97.8 Pulse 78 61 Resp 20 18 B/P (MAP) 127/57 (80) Pulse Ox 94 100 100 O2 Delivery Nasal Cannula Nasal Cannula Nasal Cannula Nasal Cannula O2 Flow Rate 2.0 2.0 2.0 2.0 10/31/20 10/31/20 10/31/20 10/31/20 20:55 20:57 20:58 21:30 Pulse 68 68 Resp 18 20 B/P (MAP) 127/57 127/57 Pulse Ox 100 94 O2 Delivery Nasal Cannula Nasal Cannula O2 Flow Rate 2.0 2.0 10/31/20 11/01/20 11/01/20 11/01/20 23:00 00:22 02:43 08:00 Temp 97.7 98.0 97.7 98.0 Pulse 56 74 63 Resp 23 23 B/P (MAP) 132/61 (84) 119/53 (75) 140/53 Pulse Ox 99 94 99 O2 Delivery BiPAP/CPAP BiPAP/CPAP Nasal Cannula O2 Flow Rate 2.0 11/01/20 11/01/20 11/01/20 11/01/20 09:00 09:00 09:00 14:00 Pulse 63 63 63 73 B/P (MAP) 140/53 140/53 140/53 131/58 11/01/20 11/01/20 11/01/20 11/01/20 14:00 15:00 15:25 16:25 Temp 98.1 98.1 Pulse 73 65 Resp 20 22 20 B/P (MAP) 131/58 150/51 (84) Pulse Ox 94 97 97 O2 Delivery Nasal Cannula Nasal Cannula Nasal Cannula O2 Flow Rate 2.0 2.0 2.0 11/01/20 17:38 Pulse 69 B/P (MAP) 146/73 Intake and Output 10/31/20 10/31/20 11/01/20 15:00 23:00 07:00 Intake Total 480 ml 100 ml Output Total 500 ml 1550 ml 50 ml Balance -500 ml -1070 ml 50 ml Justifications for Admission Other Justification Acute respiratory failure with hypoxia, acute diastolic CHF exacerbation, right breast mass SALVADOR ANDERSON MD Nov 01, 2020 17:57
--- NOTE | 2020-11-01 18:00 | NUR ---
Pt voided 305cc; post residual 88cc.
[2020-11-01 19:30] VITALS: BP 129/44
[2020-11-01] MEDS: ZOLPIDEM 5 MG TABLET. PO PRN (20:22)
[2020-11-01] MEDS: cefTRIAXone IV Push 1 GM VIAL. IVP SCH (20:24)
[2020-11-01] MEDS: MORPHINE SULFATE 4 MG/ML VIAL. IV PRN (20:26)
[2020-11-01] MEDS: PATCH REMOVAL. MC SCH (20:28)
[2020-11-01] MEDS: INSULIN GLARGINE SYRINGE. SQ SCH (22:15)
[2020-11-01 23:11] VITALS: BP 147/70
[2020-11-02] VITALS (7 sets, daily range): BP systolic 133–165; BP diastolic 51–69
[2020-11-02 06:21] LABS: CALCIUM 8.8 mg/dL (8.5-10.1); CREATININE 2.4 mg/dL (0.7-1.3); GFR 34.1; POTASSIUM 5.1 mmol/L (3.5-5.1)
[2020-11-02] MEDS: CARVEDILOL 12.5 MG TABLET. PO SCH ×2 (07:57→16:18)
[2020-11-02] MEDS: GABAPENTIN 300 MG CAPSULE. PO SCH ×3 (07:57→21:40)
[2020-11-02] MEDS: LIDOCAINE (700MG/PATCH) PATCH. TD SCH (07:57)
[2020-11-02] MEDS: DULoxetine HCL 30 MG CAPSULE.DR PO SCH (07:57)
[2020-11-02] MEDS: IRON POLYSACCHARIDE COMPLEX 150 MG CAPSULE PO SCH (07:58)
[2020-11-02] MEDS: ASPIRIN CHEWABLE 81 MG TABLET. PO SCH (07:58)
[2020-11-02] MEDS: TAMSULOSIN 0.4 MG CAP.ER.24H. PO SCH (07:59)
[2020-11-02] MEDS: ISOSORBIDE DINITRATE 10 MG TABLET. PO SCH ×3 (07:59→21:44)
[2020-11-02] MEDS: CLOPIDOGREL BISULFATE 75 MG TABLET PO SCH (07:59)
[2020-11-02] MEDS: PANTOPRAZOLE 40 MG TABLET.DR. PO SCH ×2 (07:59→16:17)
[2020-11-02] MEDS: amLODIPine BESYLATE 10 MG TABLET PO SCH (08:00)
[2020-11-02] MEDS: INSULIN LISPRO 300 UNITS/3 ML VIAL. SQ SCH ×6 (08:00→17:26)
[2020-11-02] MEDS: MORPHINE SULFATE 4 MG/ML VIAL. IV PRN ×2 (08:08→16:24)
[2020-11-02 08:15] LABS: BASO % 1 % (0-3); EOS # 0.2 x10^3/uL (0.0-0.7); EOS % 5 % (0-3); HEMATOCRIT 23.1 % (39.0-53.0); HEMOGLOBIN 7.4 g/dL (13.0-17.5); LYMPH # 0.9 x10^3/uL (1.0-4.8); LYMPH % 21 % (24-48); MEAN CORPUSCULAR HEMOGLOBIN 29 pg (25-35); MEAN CORPUSCULAR HGB CONC 32 g/dL (31-37); MEAN CORPUSCULAR VOLUME 89 fL (79-100); MONO # 0.3 x10^3/uL (0.0-1.1); MONO % 8 % (0-9); NEUT # 2.8 x10^3/uL (1.8-7.7); NEUT % 65 % (31-73); PLATELET COUNT 260 x10^3/uL (140-400); RED BLOOD COUNT 2.59 x10^6/uL (4.30-5.70); RED CELL DISTRIBUTION WIDTH 15.1 % (11.5-14.5); WHITE BLOOD COUNT 4.3 x10^3/uL (4.0-11.0)
[2020-11-02] MEDS: HYDROcodone/APAP 5/325MG 1 TAB TABLET PO PRN ×2 (10:10→16:17)
--- NOTE | 2020-11-02 10:18 | PDOC ---
G I PROGRESS NOTE Subjective Breathing "about the same". No GI complaints. Objective No reports of any GI issues. Physical Exam Lungs with a few basilar crackle posteriorly. RRR Abdomen soft, obese, non-tender. Review of Relevant I have reviewed the following items karissa (where applicable) has been applied. Labs Laboratory Tests Test 10/31/20 11:55 10/31/20 15:37 10/31/20 16:58 10/31/20 20:01 Glucose (Fingerstick) 128 mg/dL (70-99) 190 mg/dL (70-99) 136 mg/dL (70-99) 100 mg/dL (70-99) Test 11/01/20 05:30 11/01/20 07:50 11/01/20 08:20 11/01/20 12:01 Sodium Level 140 mmol/L (136-145) Potassium Level 4.8 mmol/L (3.5-5.1) Chloride Level 106 mmol/L (98-107) Carbon Dioxide Level 24 mmol/L (21-32) Anion Gap 10 (6-14) Blood Urea Nitrogen 57 mg/dL (8-26) Creatinine 2.5 mg/dL (0.7-1.3) Estimated GFR (Cockcroft-Gault) 32.5 Glucose Level 67 mg/dL (70-99) Calcium Level 8.9 mg/dL (8.5-10.1) Glucose (Fingerstick) 41 mg/dL (70-99) 72 mg/dL (70-99) 132 mg/dL (70-99) Test 11/01/20 17:33 11/01/20 21:05 11/02/20 05:30 11/02/20 07:15 Glucose (Fingerstick) 138 mg/dL (70-99) 149 mg/dL (70-99) 74 mg/dL (70-99) White Blood Count 4.3 x10^3/uL (4.0-11.0) Red Blood Count 2.59 x10^6/uL (4.30-5.70) Hemoglobin 7.4 g/dL (13.0-17.5) Hematocrit 23.1 % (39.0-53.0) Mean Corpuscular Volume 89 fL (79-100) Mean Corpuscular Hemoglobin 29 pg (25-35) Mean Corpuscular Hemoglobin Concent 32 g/dL (31-37) Red Cell Distribution Width 15.1 % (11.5-14.5) Platelet Count 260 x10^3/uL (140-400) Neutrophils (%) (Auto) 65 % (31-73) Lymphocytes (%) (Auto) 21 % (24-48) Monocytes (%) (Auto) 8 % (0-9) Eosinophils (%) (Auto) 5 % (0-3) Basophils (%) (Auto) 1 % (0-3) Neutrophils # (Auto) 2.8 x10^3/uL (1.8-7.7) Lymphocytes # (Auto) 0.9 x10^3/uL (1.0-4.8) Monocytes # (Auto) 0.3 x10^3/uL (0.0-1.1) Eosinophils # (Auto) 0.2 x10^3/uL (0.0-0.7) Basophils # (Auto) 0.0 x10^3/uL (0.0-0.2) Sodium Level 140 mmol/L (136-145) Potassium Level 5.1 mmol/L (3.5-5.1) Chloride Level 107 mmol/L (98-107) Carbon Dioxide Level 25 mmol/L (21-32) Anion Gap 8 (6-14) Blood Urea Nitrogen 56 mg/dL (8-26) Creatinine 2.4 mg/dL (0.7-1.3) Estimated GFR (Cockcroft-Gault) 34.1 Glucose Level 92 mg/dL (70-99) Calcium Level 8.8 mg/dL (8.5-10.1) Laboratory Tests Test 11/01/20 12:01 11/01/20 17:33 11/01/20 21:05 11/02/20 05:30 Glucose (Fingerstick) 132 mg/dL (70-99) 138 mg/dL (70-99) 149 mg/dL (70-99) White Blood Count 4.3 x10^3/uL (4.0-11.0) Red Blood Count 2.59 x10^6/uL (4.30-5.70) Hemoglobin 7.4 g/dL (13.0-17.5) Hematocrit 23.1 % (39.0-53.0) Mean Corpuscular Volume 89 fL (79-100) Mean Corpuscular Hemoglobin 29 pg (25-35) Mean Corpuscular Hemoglobin Concent 32 g/dL (31-37) Red Cell Distribution Width 15.1 % (11.5-14.5) Platelet Count 260 x10^3/uL (140-400) Neutrophils (%) (Auto) 65 % (31-73) Lymphocytes (%) (Auto) 21 % (24-48) Monocytes (%) (Auto) 8 % (0-9) Eosinophils (%) (Auto) 5 % (0-3) Basophils (%) (Auto) 1 % (0-3) Neutrophils # (Auto) 2.8 x10^3/uL (1.8-7.7) Lymphocytes # (Auto) 0.9 x10^3/uL (1.0-4.8) Monocytes # (Auto) 0.3 x10^3/uL (0.0-1.1) Eosinophils # (Auto) 0.2 x10^3/uL (0.0-0.7) Basophils # (Auto) 0.0 x10^3/uL (0.0-0.2) Sodium Level 140 mmol/L (136-145) Potassium Level 5.1 mmol/L (3.5-5.1) Chloride Level 107 mmol/L (98-107) Carbon Dioxide Level 25 mmol/L (21-32) Anion Gap 8 (6-14) Blood Urea Nitrogen 56 mg/dL (8-26) Creatinine 2.4 mg/dL (0.7-1.3) Estimated GFR (Cockcroft-Gault) 34.1 Glucose Level 92 mg/dL (70-99) Calcium Level 8.8 mg/dL (8.5-10.1) Test 11/02/20 07:15 Glucose (Fingerstick) 74 mg/dL (70-99) Microbiology 10/31/20 Gram Stain - Final, Resulted 10/31/20 Aerobic and Anaerobic Culture, Resulted Pending 10/30/20 Urine Culture - Final, Complete --hemoglobin stable Vitals/I & O Vital Sign - Last 24 Hours 11/01/20 11/01/20 11/01/20 11/01/20 14:00 14:00 15:00 15:25 Temp 98.1 98.1 Pulse 73 73 65 Resp 20 22 B/P (MAP) 131/58 131/58 150/51 (84) Pulse Ox 94 97 O2 Delivery Nasal Cannula Nasal Cannula O2 Flow Rate 2.0 2.0 11/01/20 11/01/20 11/01/20 11/01/20 16:25 17:38 19:30 20:00 Temp 97.7 97.7 Pulse 69 69 Resp 20 20 B/P (MAP) 146/73 129/44 (72) Pulse Ox 97 94 O2 Delivery Nasal Cannula Nasal Cannula Nasal Cannula O2 Flow Rate 2.0 2.0 2.0 11/01/20 11/01/20 11/01/20 11/01/20 20:23 20:24 20:26 21:00 Pulse 69 69 Resp 20 20 B/P (MAP) 129/44 129/44 Pulse Ox 94 94 O2 Delivery Nasal Cannula Nasal Cannula O2 Flow Rate 2.0 2.0 11/01/20 11/02/20 11/02/20 11/02/20 23:11 03:46 07:17 07:57 Temp 98.1 98.3 98.0 98.1 98.3 98.0 Pulse 61 64 66 66 Resp 22 22 B/P (MAP) 147/70 (95) 165/52 (89) 150/69 (96) 150/69 Pulse Ox 90 94 96 O2 Delivery Nasal Cannula Nasal Cannula Nasal Cannula O2 Flow Rate 2.0 2.0 2.0 11/02/20 11/02/20 11/02/20 11/02/20 07:58 07:59 08:00 08:00 Pulse 66 66 66 B/P (MAP) 150/69 150/69 150/69 O2 Delivery Nasal Cannula O2 Flow Rate 2.0 11/02/20 11/02/20 08:08 08:36 Resp 20 20 Pulse Ox 96 96 O2 Delivery Nasal Cannula Nasal Cannula O2 Flow Rate 2.0 2.0 Intake and Output 11/01/20 11/01/20 11/02/20 15:00 23:00 07:00 Intake Total 580 ml 450 ml 0 ml Output Total 405 ml 655 ml 760 ml Balance 175 ml -205 ml -760 ml Problem List Problems Medical Problems: (1) Chest pain Status: Acute (2) CHF exacerbation Status: Acute (3) HTN (hypertension) Status: Acute (4) Person under investigation for COVID-19 Status: Acute Assessment [facility] CHF Plan of Care Note Continue as now. Outpatient 'scopes once CHF compensated. Justicifation of Admission Dx: Justifications for Admission: Justification of Admission Dx: N/A MARTINA MOREIRA MD Nov 02, 2020 10:18
--- NOTE | 2020-11-02 10:58 | PDOC ---
PROGRESS NOTES Date of Service DATE: 11/02/20 TIME: 10:57 Assessment Problems Medical Problems: (1) Chest pain Status: Acute (2) CHF exacerbation Status: Acute (3) HTN (hypertension) Status: Acute (4) Person under investigation for COVID-19 Status: Acute Peripheral neuropathy, most likely from diabetes (hemoglobin A1c is 6.9), labs negative for other causes, exacerbated by acute metabolic issues including anemia and renal failure. Consider acute inflammatory demyelinating neuropathy, but this is unlikely, patient started getting weak at least a year ago. I find no evidence of central nervous system disease including myelopathy. Lab work so far is negative. He denies significant back pain Substance abuse, cocaine Cardiac catheterization, 10/31, elevated biventricular filling pressures and cor pulmonale, planning on medical treatment Plan Okay to resume statin Rehabilitation modalities, needs inpatient rehab, insurance has denied Continue gabapentin and duloxetine. Follow-up with me for outpatient EMG studies Subjective None Objective Vital Signs Date Time Temp Pulse Resp B/P (MAP) Pulse Ox O2 Delivery O2 Flow Rate FiO2 11/02/20 10:10 20 96 Nasal Cannula 2.0 11/02/20 08:00 66 150/69 11/02/20 07:17 98.0 98.0 Intake and Output 11/02/20 07:00 Intake Total 1030 ml Output Total 1820 ml Balance -790 ml Intake Oral 1030 ml Output Urine Total 1820 ml # Voids 3 PHYSICAL EXAM Alert. Oriented to time, place and person. PERRL. EOMI. CN: no focal findings. Muscle tone: normal. Muscle strength: 4/5 DTR: 0+ Plantar reflex: Flexor Gait: not examined in bed. Sensory exam: Stocking loss. Review of Relevant I have reviewed the following items karissa (where applicable) has been applied. Labs Laboratory Tests Test 10/31/20 11:55 10/31/20 15:37 10/31/20 16:58 10/31/20 20:01 Glucose (Fingerstick) 128 mg/dL (70-99) 190 mg/dL (70-99) 136 mg/dL (70-99) 100 mg/dL (70-99) Test 11/01/20 05:30 11/01/20 07:50 11/01/20 08:20 11/01/20 12:01 Sodium Level 140 mmol/L (136-145) Potassium Level 4.8 mmol/L (3.5-5.1) Chloride Level 106 mmol/L (98-107) Carbon Dioxide Level 24 mmol/L (21-32) Anion Gap 10 (6-14) Blood Urea Nitrogen 57 mg/dL (8-26) Creatinine 2.5 mg/dL (0.7-1.3) Estimated GFR (Cockcroft-Gault) 32.5 Glucose Level 67 mg/dL (70-99) Calcium Level 8.9 mg/dL (8.5-10.1) Glucose (Fingerstick) 41 mg/dL (70-99) 72 mg/dL (70-99) 132 mg/dL (70-99) Test 11/01/20 17:33 11/01/20 21:05 11/02/20 05:30 11/02/20 07:15 Glucose (Fingerstick) 138 mg/dL (70-99) 149 mg/dL (70-99) 74 mg/dL (70-99) White Blood Count 4.3 x10^3/uL (4.0-11.0) Red Blood Count 2.59 x10^6/uL (4.30-5.70) Hemoglobin 7.4 g/dL (13.0-17.5) Hematocrit 23.1 % (39.0-53.0) Mean Corpuscular Volume 89 fL (79-100) Mean Corpuscular Hemoglobin 29 pg (25-35) Mean Corpuscular Hemoglobin Concent 32 g/dL (31-37) Red Cell Distribution Width 15.1 % (11.5-14.5) Platelet Count 260 x10^3/uL (140-400) Neutrophils (%) (Auto) 65 % (31-73) Lymphocytes (%) (Auto) 21 % (24-48) Monocytes (%) (Auto) 8 % (0-9) Eosinophils (%) (Auto) 5 % (0-3) Basophils (%) (Auto) 1 % (0-3) Neutrophils # (Auto) 2.8 x10^3/uL (1.8-7.7) Lymphocytes # (Auto) 0.9 x10^3/uL (1.0-4.8) Monocytes # (Auto) 0.3 x10^3/uL (0.0-1.1) Eosinophils # (Auto) 0.2 x10^3/uL (0.0-0.7) Basophils # (Auto) 0.0 x10^3/uL (0.0-0.2) Sodium Level 140 mmol/L (136-145) Potassium Level 5.1 mmol/L (3.5-5.1) Chloride Level 107 mmol/L (98-107) Carbon Dioxide Level 25 mmol/L (21-32) Anion Gap 8 (6-14) Blood Urea Nitrogen 56 mg/dL (8-26) Creatinine 2.4 mg/dL (0.7-1.3) Estimated GFR (Cockcroft-Gault) 34.1 Glucose Level 92 mg/dL (70-99) Calcium Level 8.8 mg/dL (8.5-10.1) Laboratory Tests Test 11/01/20 12:01 11/01/20 17:33 11/01/20 21:05 11/02/20 05:30 Glucose (Fingerstick) 132 mg/dL (70-99) 138 mg/dL (70-99) 149 mg/dL (70-99) White Blood Count 4.3 x10^3/uL (4.0-11.0) Red Blood Count 2.59 x10^6/uL (4.30-5.70) Hemoglobin 7.4 g/dL (13.0-17.5) Hematocrit 23.1 % (39.0-53.0) Mean Corpuscular Volume 89 fL (79-100) Mean Corpuscular Hemoglobin 29 pg (25-35) Mean Corpuscular Hemoglobin Concent 32 g/dL (31-37) Red Cell Distribution Width 15.1 % (11.5-14.5) Platelet Count 260 x10^3/uL (140-400) Neutrophils (%) (Auto) 65 % (31-73) Lymphocytes (%) (Auto) 21 % (24-48) Monocytes (%) (Auto) 8 % (0-9) Eosinophils (%) (Auto) 5 % (0-3) Basophils (%) (Auto) 1 % (0-3) Neutrophils # (Auto) 2.8 x10^3/uL (1.8-7.7) Lymphocytes # (Auto) 0.9 x10^3/uL (1.0-4.8) Monocytes # (Auto) 0.3 x10^3/uL (0.0-1.1) Eosinophils # (Auto) 0.2 x10^3/uL (0.0-0.7) Basophils # (Auto) 0.0 x10^3/uL (0.0-0.2) Sodium Level 140 mmol/L (136-145) Potassium Level 5.1 mmol/L (3.5-5.1) Chloride Level 107 mmol/L (98-107) Carbon Dioxide Level 25 mmol/L (21-32) Anion Gap 8 (6-14) Blood Urea Nitrogen 56 mg/dL (8-26) Creatinine 2.4 mg/dL (0.7-1.3) Estimated GFR (Cockcroft-Gault) 34.1 Glucose Level 92 mg/dL (70-99) Calcium Level 8.8 mg/dL (8.5-10.1) Test 11/02/20 07:15 Glucose (Fingerstick) 74 mg/dL (70-99) Microbiology 10/31/20 Gram Stain - Final, Resulted 10/31/20 Aerobic and Anaerobic Culture, Resulted Pending 10/30/20 Urine Culture - Final, Complete Medications Current Medications Nitroglycerin (Nitro-Bid Oint) 1 inch 1X ONCE TP Last administered on 10/20/20at 13:22; Start 10/20/20 at 13:15; Stop 10/20/20 at 13:16; Status DC Morphine Sulfate (Morphine Sulfate) 4 mg 1X ONCE IV Last administered on 10/20/20at 13:23; Start 10/20/20 at 13:15; Stop 10/20/20 at 13:16; Status DC Furosemide (Lasix) 80 mg 1X ONCE IVP Last administered on 10/20/20at 16:25; Start 10/20/20 at 15:45; Stop 10/20/20 at 15:46; Status DC Hydralazine HCl (Apresoline Inj) 10 mg PRN Q20MIN PRN IVP ELEVATED BP, SEE COMMENTS Last administered on 10/20/20at 16:28; Start 10/20/20 at 15:30 Furosemide (Lasix) 80 mg [id number] PO Last administered on 10/23/20at 08:11; Start 10/21/20 at 09:00; Stop 10/24/20 at 15:14; Status DC Insulin Human Lispro (HumaLOG) 0-9 UNITS TIDWMEALS SQ Last administered on 10/27/20at 08:17; Start 10/20/20 at 17:00 Dextrose (Dextrose 50%-Water Syringe) 12.5 gm PRN Q15MIN PRN IV SEE COMMENTS; Start 10/20/20 at 15:45 Ondansetron HCl (Zofran) 4 mg PRN Q6HRS PRN IVP NAUSEA/VOMITING Last administered on 10/22/20at 11:57; Start 10/20/20 at 16:15 Al Hydroxide/Mg Hydroxide (Mylanta Plus Xs) 30 ml PRN Q3HRS PRN PO HEARTBURN / GAS; Start 10/20/20 at 16:15; Stop 10/31/20 at 12:38; Status DC Calcium Carbonate/ Glycine (Tums) 500 mg PRN Q3HRS PRN PO UPSET STOMACH; Start 10/20/20 at 16:15 Zolpidem Tartrate (Ambien) 5 mg PRN QHS PRN PO INSOMNIA, MAY REPEAT IN 1HR Last administered on 11/01/20at 20:22; Start 10/20/20 at 16:15 Acetaminophen (Tylenol) 650 mg PRN Q6HRS PRN PO Headaches, Temp > 101.5F Last administered on 10/25/20at 14:19; Start 10/20/20 at 16:15 Magnesium Hydroxide (Milk Of Magnesia) 2,400 mg PRN Q12HR PRN PO CONSTIPATION (1ST CHOICE) Last administered on 10/22/20at 06:11; Start 10/20/20 at 16:15; Stop 10/31/20 at 12:37; Status DC Bisacodyl (Dulcolax Supp) 10 mg PRN DAILY PRN CA CONSTIPATION; Start 10/20/20 at 16:15 Heparin Sodium (Porcine) (Heparin Sodium) 5,000 unit Q8HRS SQ Last administered on 10/29/20at 05:59; Start 10/20/20 at 16:30; Stop 10/29/20 at 07:14; Status DC Morphine Sulfate (Morphine Sulfate) 4 mg PRN Q2HR PRN IV MODERATE TO SEVERE PAIN Last administered on 11/02/20at 08:08; Start 10/20/20 at 16:30 Tramadol HCl (Ultram) 50 mg PRN Q6HRS PRN PO MILD TO MODERATE PAIN Last administered on 10/24/20 08:25; Start 10/20/20 at 16:30; Stop 10/30/20 at 20:36; Status DC Amlodipine Besylate (Norvasc) 10 mg DAILY PO Last administered on 11/02/20 08:00; Start 10/21/20 at 09:00 Aspirin (Aspirin Chewable) 81 mg DAILYWBKFT PO Last administered on 11/02/20 07:58; Start 10/21/20 at 08:00 Clopidogrel Bisulfate (Plavix) 75 mg DAILY PO Last administered on 11/02/20 07:59; Start 10/21/20 at 09:00 Furosemide (Lasix) 80 mg BID92 PO Last administered on 10/21/20 08:54; Start 10/20/20 at 17:30; Stop 10/21/20 at 09:37; Status DC Pantoprazole Sodium (Protonix) 40 mg BIDAC PO Last administered on 11/02/20at 07:59; Start 10/20/20 at 17:30 Senna/Docusate Sodium (Senna Plus) 2 tab PRN QEVNG PRN PO CONSTIPATION; Start 10/20/20 at 17:30 Spironolactone (Aldactone) 25 mg DAILY PO Last administered on 10/21/20 08:52; Start 10/21/20 at 09:00; Stop 10/21/20 at 14:06; Status DC Tamsulosin HCl (Flomax) 0.4 mg DAILY PO Last administered on 11/02/20 07:59; Start 10/21/20 at 09:00 Carvedilol (Coreg) 25 mg BIDWMEALS PO Last administered on 11/02/20 07:57; Start 10/20/20 at 17:30 Gabapentin (Neurontin) 300 mg TID PO Last administered on 11/02/20 07:57; Start 10/20/20 at 21:00 Hydralazine HCl (Apresoline) 100 mg TID PO Last administered on 11/02/20 07:58; Start 10/20/20 at 21:00 Insulin Human Lispro (HumaLOG) 30 units TIDWMEALS SQ Last administered on 10/31/20 15:58; Start 10/21/20 at 08:00 Insulin Glargine (Lantus Syringe) 60 unit QHS SQ Last administered on 10/22/20 21:17; Start 10/20/20 at 21:00; Stop 10/23/20 at 13:07; Status DC Isosorbide Dinitrate (Isordil) 5 mg TID PO Last administered on 11/02/20 07:59; Start 10/20/20 at 21:00 Atorvastatin Calcium (Lipitor) 80 mg QHS PO Last administered on 10/24/20 21:42; Start 10/20/20 at 21:00; Stop 10/25/20 at 13:42; Status DC Lorazepam (Ativan Inj) 1 mg PRN Q4HRS PRN IVP ANXIETY / AGITATION Last administered on 10/22/20 11:57; Start 10/20/20 at 17:30 Insulin Glargine (Lantus Syringe) 70 unit QHS SQ Last administered on 11/01/20at 22:15; Start 10/23/20 at 21:00 Lidocaine (Lidoderm) 2 patch DAILY TD Last administered on 11/02/20 07:57; Start 10/24/20 at 09:00 Miscellaneous (Lidoderm Patch Removal) 1 ea QHS MC Last administered on 11/01/20 20:28; Start 10/24/20 at 21:00 Polysaccharide Iron Complex (Niferex 150) 150 mg DAILY PO Last administered on 11/02/20 07:58; Start 10/24/20 at 14:00 Sodium Chloride 1,000 ml @ 75 mls/hr [id number] ONCE IV ; Start 10/25/20 at 11:15; Stop 10/25/20 at 13:42; Status DC Sodium Chloride 1,000 ml @ 75 mls/hr [id number] IV Last administered on 10/28/20at 20:48; Start 10/25/20 at 14:00; Stop 10/30/20 at 13:30; Status DC Duloxetine HCl (Cymbalta) 30 mg DAILY PO Last administered on 10/27/20at 08:03; Start 10/25/20 at 15:00; Stop 10/27/20 at 13:33; Status DC Lactulose (Lactulose) 20 gm 1X ONCE PO Last administered on 10/26/20at 12:47; Start 10/26/20 at 10:30; Stop 10/26/20 at 10:31; Status DC Lactulose (Lactulose) 20 gm 1X ONCE PO Last administered on 10/26/20at 12:47; Start 10/26/20 at 10:30; Stop 10/26/20 at 10:31; Status DC Duloxetine HCl (Cymbalta) 60 mg DAILY PO Last administered on 11/02/20at 07:57; Start 10/28/20 at 09:00 Furosemide (Lasix) 40 mg 1X ONCE IVP Last administered on 10/30/20at 12:37; Start 10/30/20 at 12:15; Stop 10/30/20 at 12:20; Status DC Morphine Sulfate (Morphine Sulfate) 4 mg 1X ONCE IM ; Start 10/30/20 at 20:45; Stop 10/30/20 at 20:46; Status Cancel Ceftriaxone Sodium (Rocephin) 1 gm Q24H IVP Last administered on 11/01/20at 20:24; Start 10/30/20 at 21:00 Furosemide (Lasix) 40 mg 1X ONCE IVP Last administered on 10/30/20at 21:00; Start 10/30/20 at 21:00; Stop 10/30/20 at 21:01; Status DC Morphine Sulfate (Morphine Sulfate) 4 mg 1X ONCE IV Last administered on 10/30/20at 22:00; Start 10/30/20 at 22:00; Stop 10/30/20 at 22:01; Status DC Fentanyl Citrate (Fentanyl 2ml Vial) 100 mcg STK-MED ONCE .ROUTE ; Start 10/31/20 at 12:18; Stop 10/31/20 at 12:19; Status DC Midazolam HCl (Versed) 2 mg STK-MED ONCE .ROUTE ; Start 10/31/20 at 12:18; Stop 10/31/20 at 12:19; Status DC Heparin Sodium/ Sodium Chloride 1,000 ml @ As Directed STK-MED ONCE .ROUTE ; Start 10/31/20 at 12:19; Stop 10/31/20 at 12:19; Status DC Lidocaine HCl (Lidocaine 1% 20ml Vial) 20 ml STK-MED ONCE .ROUTE ; Start 10/31/20 at 12:28; Stop 10/31/20 at 12:28; Status DC Heparin Sodium/ Sodium Chloride (HEPARIN for ARTERIAL LINE FLUSH) 1,000 unit 1X ONCE IART Last administered on 10/31/20at 13:35; Start 10/31/20 at 12:30; Stop 10/31/20 at 12:32; Status DC Heparin Sodium/ Sodium Chloride (HEPARIN for ARTERIAL LINE FLUSH) 1,000 unit 1X ONCE IART Last administered on 10/31/20at 13:35; Start 10/31/20 at 12:30; Stop 10/31/20 at 12:32; Status DC Midazolam HCl (Versed) 2 mg 1X ONCE IV Last administered on 10/31/20at 13:35; Start 10/31/20 at 12:30; Stop 10/31/20 at 12:32; Status DC Fentanyl Citrate (Fentanyl 2ml Vial) 100 mcg 1X ONCE IV Last administered on 10/31/20at 13:35; Start 10/31/20 at 12:30; Stop 10/31/20 at 12:32; Status DC Lidocaine HCl (Lidocaine 1% 20ml Vial) 20 ml 1X ONCE INJ Last administered on 10/31/20at 13:34; Start 10/31/20 at 12:30; Stop 10/31/20 at 12:32; Status DC Acetaminophen/ Hydrocodone Bitart (Lortab 5/325) 1 tab PRN Q6HRS PRN PO PAIN Last administered on 11/02/20at 10:10; Start 10/31/20 at 12:30 Furosemide (Lasix) 100 mg STK-MED ONCE .ROUTE ; Start 10/31/20 at 13:19; Stop 10/31/20 at 13:19; Status DC Furosemide (Lasix) 80 mg 1X ONCE IVP Last administered on 10/31/20at 13:36; Start 10/31/20 at 13:30; Stop 10/31/20 at 13:31; Status DC Lidocaine HCl (Glydo (Lidocaine) Jelly) 1 nathalie 1X ONCE MM ; Start 11/01/20 at 02:30; Stop 11/01/20 at 02:31; Status DC Active Scripts Active Flomax (Tamsulosin Hcl) 0.4 Mg Cap.er.24h 0.4 Mg PO DAILY Children's Aspirin (Aspirin) 81 Mg Tab.chew 81 Mg PO DAILYWBKFT Reported Senna-Docusate Sodium Tablet (Sennosides/Docusate Sodium) 1 Each Tablet 2 Tab PO PRN QEVNG PRN 5 Days Spironolactone 25 Mg Tablet 25 Mg PO DAILY Vitamin D2 (Ergocalciferol (Vitamin D2)) 1,250 Mcg Capsule 1,250 Mcg PO WEEKLY Lasix (Furosemide) 80 Mg Tablet 80 Mg PO BID Clopidogrel (Clopidogrel Bisulfate) 75 Mg Tablet 75 Mg PO DAILY Carvedilol 25 Mg Tablet 25 Mg PO BIDWMEALS Isosorbide Dinitrate 40 Mg Tablet.er 5 Mg PO TID Gabapentin 600 Mg Tablet 300 Mg PO TID Protonix (Pantoprazole Sodium) 40 Mg Tablet.dr 40 Mg PO BID Hydralazine Hcl 100 Mg Tablet 100 Mg PO TID Amlodipine Besylate 10 Mg Tablet 10 Mg PO DAILY Crestor (Rosuvastatin Calcium) 20 Mg Tablet 20 Mg PO QHS Levemir Flexpen (Insulin Detemir) 100 Unit/1 Ml Insuln.pen 60 Unit SQ HS Novolog Flexpen (Insulin Aspart) 100 Unit/1 Ml Insuln.pen 30 Unit SQ TIDAC Vitals/I & O Vital Sign - Last 24 Hours 11/01/20 11/01/20 11/01/20 11/01/20 14:00 14:00 15:00 15:25 Temp 98.1 98.1 Pulse 73 73 65 Resp 20 22 B/P (MAP) 131/58 131/58 150/51 (84) Pulse Ox 94 97 O2 Delivery Nasal Cannula Nasal Cannula O2 Flow Rate 2.0 2.0 11/01/20 11/01/20 11/01/20 11/01/20 16:25 17:38 19:30 20:00 Temp 97.7 97.7 Pulse 69 69 Resp 20 20 B/P (MAP) 146/73 129/44 (72) Pulse Ox 97 94 O2 Delivery Nasal Cannula Nasal Cannula Nasal Cannula O2 Flow Rate 2.0 2.0 2.0 11/01/20 11/01/20 11/01/20 11/01/20 20:23 20:24 20:26 21:00 Pulse 69 69 Resp 20 20 B/P (MAP) 129/44 129/44 Pulse Ox 94 94 O2 Delivery Nasal Cannula Nasal Cannula O2 Flow Rate 2.0 2.0 2/16/21 2/17/21 2/17/21 2/17/21 23:11 03:46 07:17 07:57 Temp 98.1 98.3 98.0 98.1 98.3 98.0 Pulse 61 64 66 66 Resp 22 22 22 B/P (MAP) 147/70 (95) 165/52 (89) 150/69 (96) 150/69 Pulse Ox 90 94 96 O2 Delivery Nasal Cannula Nasal Cannula Nasal Cannula O2 Flow Rate 2.0 2.0 2.0 11/02/20 11/02/20 11/02/20 11/02/20 07:58 07:59 08:00 08:00 Pulse 66 66 66 B/P (MAP) 150/69 150/69 150/69 O2 Delivery Nasal Cannula O2 Flow Rate 2.0 11/02/20 11/02/20 11/02/20 08:08 08:36 10:10 Resp 20 20 20 Pulse Ox 96 96 96 O2 Delivery Nasal Cannula Nasal Cannula Nasal Cannula O2 Flow Rate 2.0 2.0 2.0 Intake and Output 11/01/20 11/01/20 11/02/20 15:00 23:00 07:00 Intake Total 580 ml 450 ml 0 ml Output Total 405 ml 655 ml 760 ml Balance 175 ml -205 ml -760 ml Justicifation of Admission Dx: Justifications for Admission: Justification of Admission Dx: N/A LORRAINE GUNN MD Nov 02, 2020 10:58
--- NOTE | 2020-11-02 12:08 | PDOC ---
DATE OF SERVICE DATE: 11/02/20 TIME: 12:07 SUBJECTIVE ROS stable , states feeling better OBJECTIVE Vital Signs Vital Signs Date Time Temp Pulse Resp B/P (MAP) Pulse Ox O2 Delivery O2 Flow Rate FiO2 11/02/20 11:49 62 133/58 11/02/20 11:12 97.6 24 96 Nasal Cannula 2.0 97.6 I & 0 Intake and Output 11/02/20 07:00 Intake Total 1030 ml Output Total 1820 ml Balance -790 ml Intake Oral 1030 ml Output Urine Total 1820 ml # Voids 3 PHYSICAL EXAM Physical Exam General: Alert, Oriented X3, Cooperative, No acute distress HEENT: Atraumatic, Mucous membr. moist/pin, On o2 by NC Neck supple Lungs: Decreased at bases, Non labored Heart: distant heart sounds Abdomen: Soft, Morbidly obese Extremities: LE edema + Skin: No breakdown, No significant lesion Neuro: Normal speech, Sensation intact. Unable to move EDELMIRA Alvarez in place DIAGNOSIS/ASSESSMENT Assessment & Plan MARQUISE on CKD- ATN , cardiorenal, Overdiuresis , NonOliguric, Renal function stable Anemia- s/p PRBC, (Fe deficiency) , SPEP No M spike, GI consulted Mildly Elevated CK - statin held . Restart per cardiology CKD stage 3 B- Seen by POLITICAL ORGANIZER in our practice . Cr was at his baseline at Presentation to [facility] Generalized weakness- netta LE Neuro consulted,unrelated to Renal failure Ac Resp failure - Stable on O2 by ID, Cxr No e/o pulm Congestion , Morbidly Obese, ROXANNE, COPD . DIURETICS per cardiology . Consider adding Metolazone with close monitoring of renal function, Na, K , daily weight and symptoms Acute on chronic diastolic CHF: due to noncompliance and continued cocaine use. CxR unremarkable AECOPD with continued tobaccoism ROXANNE: uses CPAP at home Substance abuse: uses cocaine HTN urgency: improved PAD: prior bypass, clinically stable COMMENT/RELEVANT DATA Meds Current Medications Medications (Trade) Dose Ordered Sig/Kiera Start Time Stop Time Status Last Admin Dose Admin Acetaminophen (Tylenol) 650 mg PRN Q6HRS PRN 10/20/20 16:15 10/25/20 14:19 650 MG Acetaminophen/ Hydrocodone Bitart (Lortab 5/325) 1 tab PRN Q6HRS PRN 10/31/20 12:30 11/02/20 10:10 1 TAB Al Hydroxide/Mg Hydroxide (Mylanta Plus Xs) 30 ml PRN Q3HRS PRN 10/20/20 16:15 10/31/20 12:38 DC Amlodipine Besylate (Norvasc) 10 mg DAILY 10/21/20 09:00 11/02/20 08:00 10 MG Aspirin (Aspirin Chewable) 81 mg DAILYWBKFT 10/21/20 08:00 11/02/20 07:58 81 MG Atorvastatin Calcium (Lipitor) 80 mg QHS 10/20/20 21:00 10/25/20 13:42 DC 10/24/20 21:42 80 MG Bisacodyl (Dulcolax Supp) 10 mg PRN DAILY PRN 10/20/20 16:15 Calcium Carbonate/ Glycine (Tums) 500 mg PRN Q3HRS PRN 10/20/20 16:15 Carvedilol (Coreg) 25 mg BIDWMEALS 10/20/20 17:30 11/02/20 07:57 25 MG Ceftriaxone Sodium (Rocephin) 1 gm Q24H 10/30/20 21:00 11/01/20 20:24 1 GM Clopidogrel Bisulfate (Plavix) 75 mg DAILY 10/21/20 09:00 11/02/20 07:59 75 MG Dextrose (Dextrose 50%-Water Syringe) 12.5 gm PRN Q15MIN PRN 10/20/20 15:45 Duloxetine HCl (Cymbalta) 60 mg DAILY 10/28/20 09:00 11/02/20 07:57 60 MG Fentanyl Citrate (Fentanyl 2ml Vial) 100 mcg 1X ONCE 10/31/20 12:30 10/31/20 12:32 DC 10/31/20 13:35 50 MCG Furosemide (Lasix) 80 mg 1X ONCE 10/31/20 13:30 10/31/20 13:31 DC 10/31/20 13:36 80 MG Gabapentin (Neurontin) 300 mg TID 10/20/20 21:00 11/02/20 11:49 300 MG Heparin Sodium (Porcine) (Heparin Sodium) 5,000 unit Q8HRS 10/20/20 16:30 10/29/20 07:14 DC 10/29/20 05:59 5,000 UNIT Heparin Sodium/ Sodium Chloride (HEPARIN for ARTERIAL LINE FLUSH) 1,000 unit 1X ONCE 10/31/20 12:30 10/31/20 12:32 DC 10/31/20 13:35 1,000 UNIT Hydralazine HCl (Apresoline Inj) 10 mg PRN Q20MIN PRN 10/20/20 15:30 10/20/20 16:28 10 MG Hydralazine HCl (Apresoline) 100 mg TID 10/20/20 21:00 11/02/20 11:49 100 MG Insulin Glargine (Lantus Syringe) 70 unit QHS 10/23/20 21:00 11/01/20 22:15 35 UNIT Insulin Human Lispro (HumaLOG) 30 units TIDWMEALS 10/21/20 08:00 10/31/20 15:58 15 UNITS Isosorbide Dinitrate (Isordil) 5 mg TID 10/20/20 21:00 11/02/20 11:49 5 MG Lactulose (Lactulose) 20 gm 1X ONCE 10/26/20 10:30 10/26/20 10:31 DC 10/26/20 12:47 20 GM Lidocaine (Lidoderm) 2 patch DAILY 10/24/20 09:00 11/02/20 07:57 2 PATCH Lidocaine HCl (Glydo (Lidocaine) Jelly) 1 nathalie 1X ONCE 11/01/20 02:30 11/01/20 02:31 DC Lidocaine HCl (Lidocaine 1% 20ml Vial) 20 ml 1X ONCE 10/31/20 12:30 10/31/20 12:32 DC 10/31/20 13:34 6 ML Lorazepam (Ativan Inj) 1 mg PRN Q4HRS PRN 10/20/20 17:30 10/22/20 11:57 1 MG Magnesium Hydroxide (Milk Of Magnesia) 2,400 mg PRN Q12HR PRN 10/20/20 16:15 10/31/20 12:37 DC 10/22/20 06:11 2,400 MG Midazolam HCl (Versed) 2 mg 1X ONCE 10/31/20 12:30 10/31/20 12:32 DC 10/31/20 13:35 2 MG Miscellaneous (Lidoderm Patch Removal) 1 ea QHS 10/24/20 21:00 11/01/20 20:28 1 EA Morphine Sulfate (Morphine Sulfate) 4 mg 1X ONCE 10/30/20 22:00 10/30/20 22:01 DC 10/30/20 22:00 4 MG Nitroglycerin (Nitro-Bid Oint) 1 inch 1X ONCE 10/20/20 13:15 10/20/20 13:16 DC 10/20/20 13:22 1 INCH Ondansetron HCl (Zofran) 4 mg PRN Q6HRS PRN 10/20/20 16:15 10/22/20 11:57 4 MG Pantoprazole Sodium (Protonix) 40 mg BIDAC 10/20/20 17:30 11/02/20 07:59 40 MG Polysaccharide Iron Complex (Niferex 150) 150 mg DAILY 10/24/20 14:00 11/02/20 07:58 150 MG Senna/Docusate Sodium (Senna Plus) 2 tab PRN QEVNG PRN 10/20/20 17:30 Sodium Chloride 1,000 ml @ 75 mls/hr [id number] 10/25/20 14:00 10/30/20 13:30 DC 10/28/20 20:48 75 MLS/HR Spironolactone (Aldactone) 25 mg DAILY 10/21/20 09:00 10/21/20 14:06 DC 10/21/20 08:52 25 MG Tamsulosin HCl (Flomax) 0.4 mg DAILY 10/21/20 09:00 11/02/20 07:59 0.4 MG Tramadol HCl (Ultram) 50 mg PRN Q6HRS PRN 10/20/20 16:30 10/30/20 20:36 DC 10/24/20 08:25 50 MG Zolpidem Tartrate (Ambien) 5 mg PRN QHS PRN 10/20/20 16:15 11/01/20 20:22 5 MG Lab Laboratory Tests Test 11/01/20 17:33 11/01/20 21:05 11/02/20 05:30 11/02/20 07:15 Glucose (Fingerstick) 138 mg/dL (70-99) 149 mg/dL (70-99) 74 mg/dL (70-99) White Blood Count 4.3 x10^3/uL (4.0-11.0) Red Blood Count 2.59 x10^6/uL (4.30-5.70) Hemoglobin 7.4 g/dL (13.0-17.5) Hematocrit 23.1 % (39.0-53.0) Mean Corpuscular Volume 89 fL (79-100) Mean Corpuscular Hemoglobin 29 pg (25-35) Mean Corpuscular Hemoglobin Concent 32 g/dL (31-37) Red Cell Distribution Width 15.1 % (11.5-14.5) Platelet Count 260 x10^3/uL (140-400) Neutrophils (%) (Auto) 65 % (31-73) Lymphocytes (%) (Auto) 21 % (24-48) Monocytes (%) (Auto) 8 % (0-9) Eosinophils (%) (Auto) 5 % (0-3) Basophils (%) (Auto) 1 % (0-3) Neutrophils # (Auto) 2.8 x10^3/uL (1.8-7.7) Lymphocytes # (Auto) 0.9 x10^3/uL (1.0-4.8) Monocytes # (Auto) 0.3 x10^3/uL (0.0-1.1) Eosinophils # (Auto) 0.2 x10^3/uL (0.0-0.7) Basophils # (Auto) 0.0 x10^3/uL (0.0-0.2) Sodium Level 140 mmol/L (136-145) Potassium Level 5.1 mmol/L (3.5-5.1) Chloride Level 107 mmol/L (98-107) Carbon Dioxide Level 25 mmol/L (21-32) Anion Gap 8 (6-14) Blood Urea Nitrogen 56 mg/dL (8-26) Creatinine 2.4 mg/dL (0.7-1.3) Estimated GFR (Cockcroft-Gault) 34.1 Glucose Level 92 mg/dL (70-99) Calcium Level 8.8 mg/dL (8.5-10.1) Test 11/02/20 11:30 Glucose (Fingerstick) 138 mg/dL (70-99) Results All relevant outside records, renal labs, imaging studies, telemetry/EKG's were reviewed. Justicifation of Admission Dx: Justifications for Admission: Justification of Admission Dx: N/A NATASHA MCDONALD MD Nov 02, 2020 12:08
--- NOTE | 2020-11-02 12:40 | PDOC ---
[employer] PROGRESS NOTE Date of Service DOS: DATE: 11/02/20 TIME: 12:35 Chief Complaint Chief Complaint impression Acute respiratory failure with hypoxia Acute diastolic heart failure (CHF) aortic stenosis Elevated brain natriuretic peptide (BNP) level Pulmonary HTN , severe due to cocaine abuse CKD Normocytic anemia Hypertensive urgency moderate mitral regurgitation. Right breast mass Malnutrition normocytic anemia CKD stage 3 B- Seen by [employer] renal . Cr was at his baseline at Present[facility] to [facility] Peripheral neuropathy, most likely from diabetes exacerbated by acute metabolic issues including anemia and renal failure. Consider acute inflammatory demyelinating neuropathy, 2-11 remains SOA, using bipap at hs poor prognosis due to cocaine abuse 212 possibility of visiting with the Pulmonary Hypertension Clinic at [facility]. HE HAS NOT FOLLOWED UP, may benefit from hospice if remains noncompliant and continues cocaine usage 10-29 transfused today will consult GI ? EGD, AM LABS, IV PROTONIX 10-30 pos urine drug screen for cocaine ,, ct penis, cardiac cath in am mod penile edema 28 MIN pt exam, chart review, > 50% of time spent with exam, chart review, pt care coordination History of Present Illness History of Present Illness 11-02 Patient seen and evaluated. Denies chest pain or shortness of breath. Net fluid balance continues to be negative. Creatinine continues to be stable around 2.4. Continue diuresis. Receiving Rocephin prophylactically for penile edema. 11-01 Patient seen and evaluated. Denies chest pain. He had left heart cath yesterday showing elevated biventricular filling pressures, moderate pulmonary pretension due to diastolic dysfunction, cor pulmonale. He was recommended to continue aggressive diuresis and monitor renal function. Discussed weight loss and treatment of ROXANNE. 10-31 Seen and evaluated. Still c/o intemittent chesty pain. CT penis yesterday showed soft tissue edema involving the penis scrotum, thought to be related to volume overload given diffuse soft tissue anasarca. [facility] today. Discussed with RN. 10-30 CATH IN AM,, moderate penile edema, perhaps related to ascites, will obtain ct penis and scrotum 10-29 remains anemic after one unit, consulted GI , NPO possible PUD , CT ABD, PELVIS 12 cr 2.5, transfused, D/W RN, AM CBC 10-27 remains SOA, using cpap at hs poor prognosis due to cocaine abuse, abg today 2-10 Peripheral neuropathy, most likely from diabetes rule out other causes, exacerbated by acute metabolic issues including anemia and renal failure. Consider acute inflammatory demyelinating neuropathy, D/W RN 10/25 - Pt is in moderate distress, states he is profoundly weak and is eager to get to the bottom on this problem. Discussed his continue compliance with cpap machine. Mr Moran is a 54yo M w/ PMHx Diabetes-Type II, High Cholesterol, Hypertension, Pancreatitis, CKD 4, presents to the ER with complaint of worsening shortness of breath of the past 3 days. He reports associated intermittent chest pain and bilateral lower extremity swelling. States his symptoms are worse with exertion. Upon arrival in the ED his BNP was 3029. He was placed on BiPAP given IV morphine with improvement of symptoms. States he has not taken any of his home medications today. He does report a tender lump in his right breast for the past 3 weeks, reports a family history of breast cancer. He denies any fever, sick contacts, or known COVID-19 exposure. Will admit patient for further medical management. 10/21: Patient seen and evaluated. Improved on BiPAP overnight. Afebrile, denies chest pain. Blood pressure better controlled. CBG 323 this morning. Of note patient did order two trays of nondiabetic meals, and had fried chicken delivered to his room last night. Discussed importance of cardiac and diabetic diet for his heart health. Continue to diurese with Lasix. Echocardiogram and ultrasound right breast pending. If appropriately diuresed and no concerning findings on right breast ultrasound, Vitals/I&O Vitals/I&O: Vital Signs Date Time Temp Pulse Resp B/P (MAP) Pulse Ox O2 Delivery O2 Flow Rate FiO2 11/02/20 11:49 62 133/58 11/02/20 11:12 97.6 24 96 Nasal Cannula 2.0 97.6 I & O 11/01/20 11/01/20 11/02/20 15:00 23:00 07:00 Intake Total 580 ml 450 ml 0 ml Output Total 405 ml 655 ml 760 ml Balance 175 ml -205 ml -760 ml Physical Exam General: mild distress Heart: Regular rate Lungs: Clear, Wheezing, Crackles Abdomen: Normal bowel sounds Extremities: No cyanosis, Other Skin: No breakdown, No significant lesion Labs Labs: Laboratory Tests Test 11/01/20 17:33 11/01/20 21:05 11/02/20 05:30 11/02/20 07:15 Glucose (Fingerstick) 138 mg/dL (70-99) 149 mg/dL (70-99) 74 mg/dL (70-99) White Blood Count 4.3 x10^3/uL (4.0-11.0) Red Blood Count 2.59 x10^6/uL (4.30-5.70) Hemoglobin 7.4 g/dL (13.0-17.5) Hematocrit 23.1 % (39.0-53.0) Mean Corpuscular Volume 89 fL (79-100) Mean Corpuscular Hemoglobin 29 pg (25-35) Mean Corpuscular Hemoglobin Concent 32 g/dL (31-37) Red Cell Distribution Width 15.1 % (11.5-14.5) Platelet Count 260 x10^3/uL (140-400) Neutrophils (%) (Auto) 65 % (31-73) Lymphocytes (%) (Auto) 21 % (24-48) Monocytes (%) (Auto) 8 % (0-9) Eosinophils (%) (Auto) 5 % (0-3) Basophils (%) (Auto) 1 % (0-3) Neutrophils # (Auto) 2.8 x10^3/uL (1.8-7.7) Lymphocytes # (Auto) 0.9 x10^3/uL (1.0-4.8) Monocytes # (Auto) 0.3 x10^3/uL (0.0-1.1) Eosinophils # (Auto) 0.2 x10^3/uL (0.0-0.7) Basophils # (Auto) 0.0 x10^3/uL (0.0-0.2) Sodium Level 140 mmol/L (136-145) Potassium Level 5.1 mmol/L (3.5-5.1) Chloride Level 107 mmol/L (98-107) Carbon Dioxide Level 25 mmol/L (21-32) Anion Gap 8 (6-14) Blood Urea Nitrogen 56 mg/dL (8-26) Creatinine 2.4 mg/dL (0.7-1.3) Estimated GFR (Cockcroft-Gault) 34.1 Glucose Level 92 mg/dL (70-99) Calcium Level 8.8 mg/dL (8.5-10.1) Test 11/02/20 11:30 Glucose (Fingerstick) 138 mg/dL (70-99) Assessment and Plan Assessmemt and Plan Problems Medical Problems: (1) Chest pain Status: Acute (2) CHF exacerbation Status: Acute (3) HTN (hypertension) Status: Acute (4) Person under investigation for COVID-19 Status: Acute Comment Review of Relevant I have reviewed the following items karissa (where applicable) has been applied. Justifications for Admission Other Justification Acute respiratory failure with hypoxia, acute diastolic CHF exacerbation, right breast mass ASIA GLYNN MD Nov 02, 2020 12:40
[2020-11-02] MEDS: metOLazone 2.5 MG TABLET PO SCH (13:42)
--- NOTE | 2020-11-02 16:45 | PDOC ---
PROGRESS NOTES Date of Service DATE: 11/02/20 TIME: 16:43 Subjective Subjective Patient seen and examined Objective Objective Vital Signs Date Time Temp Pulse Resp B/P (MAP) Pulse Ox O2 Delivery O2 Flow Rate FiO2 11/02/20 16:24 20 96 Nasal Cannula 2.0 11/02/20 16:18 65 136/51 11/02/20 14:22 97.6 97.6 Intake and Output 11/02/20 07:00 Intake Total 1030 ml Output Total 1820 ml Balance -790 ml Intake Oral 1030 ml Output Urine Total 1820 ml # Voids 3 Physical Exam Abdomen: Normal bowel sounds Heart: Regular rate General: No acute distress Lungs: Other (Mildly decreased breath sounds) Assessment Assessment Problems Medical Problems: (1) Chest pain Status: Acute (2) CHF exacerbation Status: Acute (3) HTN (hypertension) Status: Acute (4) Person under investigation for COVID-19 Status: Acute Acute on chronic diastolic heart failure. Continues to slowly improve. Echocardiogram with normal LV ejection fraction with moderate mitral regurgitation and moderate pulmonary hypertension. S/P right heart catheterization. RA pressures 18/26/13, RV 67/6/17, PA 64/20/37, wedge 29/46/27, PA saturation 53%. Fabio cardiac output 5.55 L/min, cardiac index 2.35. Creatinine mildly improved today at 2.4. Renal is following the patient. We will continue diuresis as tolerated and as per renal. Chronic kidney disease. Followed by the renal service. Hypertension. Improved. Prior history of peripheral arterial disease status post right femoropopliteal bypass for ischemic foot pain in 2016 Dyslipidemia Substance abuse Coronary artery disease with a prior history of moderate coronary atherosclerosis noted in the left circumflex system in 2017 at heart catheterization at . MPI in 2019 without any significant ischemia with preserved LV function Comment Review of Relevant I have reviewed the following items karissa (where applicable) has been applied. Labs Laboratory Tests Test 10/31/20 16:58 10/31/20 20:01 11/01/20 05:30 11/01/20 07:50 Glucose (Fingerstick) 136 mg/dL (70-99) 100 mg/dL (70-99) 41 mg/dL (70-99) Sodium Level 140 mmol/L (136-145) Potassium Level 4.8 mmol/L (3.5-5.1) Chloride Level 106 mmol/L (98-107) Carbon Dioxide Level 24 mmol/L (21-32) Anion Gap 10 (6-14) Blood Urea Nitrogen 57 mg/dL (8-26) Creatinine 2.5 mg/dL (0.7-1.3) Estimated GFR (Cockcroft-Gault) 32.5 Glucose Level 67 mg/dL (70-99) Calcium Level 8.9 mg/dL (8.5-10.1) Test 11/01/20 08:20 11/01/20 12:01 11/01/20 17:33 11/01/20 21:05 Glucose (Fingerstick) 72 mg/dL (70-99) 132 mg/dL (70-99) 138 mg/dL (70-99) 149 mg/dL (70-99) Test 11/02/20 05:30 11/02/20 07:15 11/02/20 11:30 White Blood Count 4.3 x10^3/uL (4.0-11.0) Red Blood Count 2.59 x10^6/uL (4.30-5.70) Hemoglobin 7.4 g/dL (13.0-17.5) Hematocrit 23.1 % (39.0-53.0) Mean Corpuscular Volume 89 fL (79-100) Mean Corpuscular Hemoglobin 29 pg (25-35) Mean Corpuscular Hemoglobin Concent 32 g/dL (31-37) Red Cell Distribution Width 15.1 % (11.5-14.5) Platelet Count 260 x10^3/uL (140-400) Neutrophils (%) (Auto) 65 % (31-73) Lymphocytes (%) (Auto) 21 % (24-48) Monocytes (%) (Auto) 8 % (0-9) Eosinophils (%) (Auto) 5 % (0-3) Basophils (%) (Auto) 1 % (0-3) Neutrophils # (Auto) 2.8 x10^3/uL (1.8-7.7) Lymphocytes # (Auto) 0.9 x10^3/uL (1.0-4.8) Monocytes # (Auto) 0.3 x10^3/uL (0.0-1.1) Eosinophils # (Auto) 0.2 x10^3/uL (0.0-0.7) Basophils # (Auto) 0.0 x10^3/uL (0.0-0.2) Sodium Level 140 mmol/L (136-145) Potassium Level 5.1 mmol/L (3.5-5.1) Chloride Level 107 mmol/L (98-107) Carbon Dioxide Level 25 mmol/L (21-32) Anion Gap 8 (6-14) Blood Urea Nitrogen 56 mg/dL (8-26) Creatinine 2.4 mg/dL (0.7-1.3) Estimated GFR (Cockcroft-Gault) 34.1 Glucose Level 92 mg/dL (70-99) Calcium Level 8.8 mg/dL (8.5-10.1) Glucose (Fingerstick) 74 mg/dL (70-99) 138 mg/dL (70-99) Laboratory Tests Test 11/01/20 17:33 11/01/20 21:05 11/02/20 05:30 11/02/20 07:15 Glucose (Fingerstick) 138 mg/dL (70-99) 149 mg/dL (70-99) 74 mg/dL (70-99) White Blood Count 4.3 x10^3/uL (4.0-11.0) Red Blood Count 2.59 x10^6/uL (4.30-5.70) Hemoglobin 7.4 g/dL (13.0-17.5) Hematocrit 23.1 % (39.0-53.0) Mean Corpuscular Volume 89 fL (79-100) Mean Corpuscular Hemoglobin 29 pg (25-35) Mean Corpuscular Hemoglobin Concent 32 g/dL (31-37) Red Cell Distribution Width 15.1 % (11.5-14.5) Platelet Count 260 x10^3/uL (140-400) Neutrophils (%) (Auto) 65 % (31-73) Lymphocytes (%) (Auto) 21 % (24-48) Monocytes (%) (Auto) 8 % (0-9) Eosinophils (%) (Auto) 5 % (0-3) Basophils (%) (Auto) 1 % (0-3) Neutrophils # (Auto) 2.8 x10^3/uL (1.8-7.7) Lymphocytes # (Auto) 0.9 x10^3/uL (1.0-4.8) Monocytes # (Auto) 0.3 x10^3/uL (0.0-1.1) Eosinophils # (Auto) 0.2 x10^3/uL (0.0-0.7) Basophils # (Auto) 0.0 x10^3/uL (0.0-0.2) Sodium Level 140 mmol/L (136-145) Potassium Level 5.1 mmol/L (3.5-5.1) Chloride Level 107 mmol/L (98-107) Carbon Dioxide Level 25 mmol/L (21-32) Anion Gap 8 (6-14) Blood Urea Nitrogen 56 mg/dL (8-26) Creatinine 2.4 mg/dL (0.7-1.3) Estimated GFR (Cockcroft-Gault) 34.1 Glucose Level 92 mg/dL (70-99) Calcium Level 8.8 mg/dL (8.5-10.1) Test 11/02/20 11:30 Glucose (Fingerstick) 138 mg/dL (70-99) Microbiology 10/31/20 Gram Stain - Final, Resulted 10/31/20 Aerobic and Anaerobic Culture - Preliminary, Resulted 10/30/20 Urine Culture - Final, Complete Medications Current Medications Nitroglycerin (Nitro-Bid Oint) 1 inch 1X ONCE TP Last administered on 10/20/20at 13:22; Start 10/20/20 at 13:15; Stop 10/20/20 at 13:16; Status DC Morphine Sulfate (Morphine Sulfate) 4 mg 1X ONCE IV Last administered on 10/20/20at 13:23; Start 10/20/20 at 13:15; Stop 10/20/20 at 13:16; Status DC Furosemide (Lasix) 80 mg 1X ONCE IVP Last administered on 10/20/20at 16:25; Start 10/20/20 at 15:45; Stop 10/20/20 at 15:46; Status DC Hydralazine HCl (Apresoline Inj) 10 mg PRN Q20MIN PRN IVP ELEVATED BP, SEE COMMENTS Last administered on 10/20/20at 16:28; Start 10/20/20 at 15:30 Furosemide (Lasix) 80 mg [id number] PO Last administered on 10/23/20at 08:11; Start 10/21/20 at 09:00; Stop 10/24/20 at 15:14; Status DC Insulin Human Lispro (HumaLOG) 0-9 UNITS TIDWMEALS SQ Last administered on 10/27/20at 08:17; Start 10/20/20 at 17:00 Dextrose (Dextrose 50%-Water Syringe) 12.5 gm PRN Q15MIN PRN IV SEE COMMENTS; Start 10/20/20 at 15:45 Ondansetron HCl (Zofran) 4 mg PRN Q6HRS PRN IVP NAUSEA/VOMITING Last administered on 10/22/20at 11:57; Start 10/20/20 at 16:15 Al Hydroxide/Mg Hydroxide (Mylanta Plus Xs) 30 ml PRN Q3HRS PRN PO HEARTBURN / GAS; Start 10/20/20 at 16:15; Stop 10/31/20 at 12:38; Status DC Calcium Carbonate/ Glycine (Tums) 500 mg PRN Q3HRS PRN PO UPSET STOMACH; Start 10/20/20 at 16:15 Zolpidem Tartrate (Ambien) 5 mg PRN QHS PRN PO INSOMNIA, MAY REPEAT IN 1HR Last administered on 11/01/20at 20:22; Start 10/20/20 at 16:15 Acetaminophen (Tylenol) 650 mg PRN Q6HRS PRN PO Headaches, Temp > 101.5F Last administered on 10/25/20at 14:19; Start 10/20/20 at 16:15 Magnesium Hydroxide (Milk Of Magnesia) 2,400 mg PRN Q12HR PRN PO CONSTIPATION (1ST CHOICE) Last administered on 10/22/20at 06:11; Start 10/20/20 at 16:15; Stop 10/31/20 at 12:37; Status DC Bisacodyl (Dulcolax Supp) 10 mg PRN DAILY PRN [place] CONSTIPATION; Start 10/20/20 at 16:15 Heparin Sodium (Porcine) (Heparin Sodium) 5,000 unit Q8HRS SQ Last administered on 10/29/20at 05:59; Start 10/20/20 at 16:30; Stop 10/29/20 at 07:14; Status DC Morphine Sulfate (Morphine Sulfate) 4 mg PRN Q2HR PRN IV MODERATE TO SEVERE PAIN Last administered on 11/02/20at 16:24; Start 10/20/20 at 16:30 Tramadol HCl (Ultram) 50 mg PRN Q6HRS PRN PO MILD TO MODERATE PAIN Last administered on 10/24/20 08:25; Start 10/20/20 at 16:30; Stop 10/30/20 at 20:36; Status DC Amlodipine Besylate (Norvasc) 10 mg DAILY PO Last administered on 11/02/20 08:00; Start 10/21/20 at 09:00 Aspirin (Aspirin Chewable) 81 mg [id number] PO Last administered on 11/02/20 07:58; Start 10/21/20 at 08:00 Clopidogrel Bisulfate (Plavix) 75 mg DAILY PO Last administered on 11/02/20 07:59; Start 10/21/20 at 09:00 Furosemide (Lasix) 80 mg BID92 PO Last administered on 10/21/20 08:54; Start 10/20/20 at 17:30; Stop 10/21/20 at 09:37; Status DC Pantoprazole Sodium (Protonix) 40 mg BIDAC PO Last administered on 11/02/20 16:17; Start 10/20/20 at 17:30 Senna/Docusate Sodium (Senna Plus) 2 tab PRN QEVNG PRN PO CONSTIPATION; Start 10/20/20 at 17:30 Spironolactone (Aldactone) 25 mg DAILY PO Last administered on 10/21/20 08:52; Start 10/21/20 at 09:00; Stop 10/21/20 at 14:06; Status DC Tamsulosin HCl (Flomax) 0.4 mg DAILY PO Last administered on 11/02/20at 07:59; Start 10/21/20 at 09:00 Carvedilol (Coreg) 25 mg BIDWMEALS PO Last administered on 11/02/20 16:18; Start 10/20/20 at 17:30 Gabapentin (Neurontin) 300 mg TID PO Last administered on 11/02/20at 11:49; Start 10/20/20 at 21:00 Hydralazine HCl (Apresoline) 100 mg TID PO Last administered on 11/02/20 11:49; Start 10/20/20 at 21:00 Insulin Human Lispro (HumaLOG) 30 units TIDWMEALS SQ Last administered on 10/31/20 15:58; Start 10/21/20 at 08:00 Insulin Glargine (Lantus Syringe) 60 unit QHS SQ Last administered on 10/22/20 21:17; Start 10/20/20 at 21:00; Stop 10/23/20 at 13:07; Status DC Isosorbide Dinitrate (Isordil) 5 mg TID PO Last administered on 11/02/20 11:49; Start 10/20/20 at 21:00 Atorvastatin Calcium (Lipitor) 80 mg QHS PO Last administered on 10/24/20 21:42; Start 10/20/20 at 21:00; Stop 10/25/20 at 13:42; Status DC Lorazepam (Ativan Inj) 1 mg PRN Q4HRS PRN IVP ANXIETY / AGITATION Last administered on 10/22/20 11:57; Start 10/20/20 at 17:30 Insulin Glargine (Lantus Syringe) 70 unit QHS SQ Last administered on 11/01/20at 22:15; Start 10/23/20 at 21:00 Lidocaine (Lidoderm) 2 patch DAILY TD Last administered on 11/02/20 07:57; Start 10/24/20 at 09:00 Miscellaneous (Lidoderm Patch Removal) 1 ea QHS MC Last administered on 11/01/20 20:28; Start 10/24/20 at 21:00 Polysaccharide Iron Complex (Niferex 150) 150 mg DAILY PO Last administered on 11/02/20 07:58; Start 10/24/20 at 14:00 Sodium Chloride 1,000 ml @ 75 mls/hr [id number] ONCE IV ; Start 10/25/20 at 11:15; Stop 10/25/20 at 13:42; Status DC Sodium Chloride 1,000 ml @ 75 mls/hr [id number] IV Last administered on 10/28/20at 20:48; Start 10/25/20 at 14:00; Stop 10/30/20 at 13:30; Status DC Duloxetine HCl (Cymbalta) 30 mg DAILY PO Last administered on 10/27/20at 08:03; Start 10/25/20 at 15:00; Stop 10/27/20 at 13:33; Status DC Lactulose (Lactulose) 20 gm 1X ONCE PO Last administered on 10/26/20at 12:47; Start 10/26/20 at 10:30; Stop 10/26/20 at 10:31; Status DC Lactulose (Lactulose) 20 gm 1X ONCE PO Last administered on 10/26/20at 12:47; Start 10/26/20 at 10:30; Stop 10/26/20 at 10:31; Status DC Duloxetine HCl (Cymbalta) 60 mg DAILY PO Last administered on 11/02/20at 07:57; Start 10/28/20 at 09:00 Furosemide (Lasix) 40 mg 1X ONCE IVP Last administered on 10/30/20at 12:37; Start 10/30/20 at 12:15; Stop 10/30/20 at 12:20; Status DC Morphine Sulfate (Morphine Sulfate) 4 mg 1X ONCE IM ; Start 10/30/20 at 20:45; Stop 10/30/20 at 20:46; Status Cancel Ceftriaxone Sodium (Rocephin) 1 gm Q24H IVP Last administered on 11/01/20at 20:24; Start 10/30/20 at 21:00 Furosemide (Lasix) 40 mg 1X ONCE IVP Last administered on 10/30/20at 21:00; Start 10/30/20 at 21:00; Stop 10/30/20 at 21:01; Status DC Morphine Sulfate (Morphine Sulfate) 4 mg 1X ONCE IV Last administered on 10/30/20at 22:00; Start 10/30/20 at 22:00; Stop 10/30/20 at 22:01; Status DC Fentanyl Citrate (Fentanyl 2ml Vial) 100 mcg STK-MED ONCE .ROUTE ; Start 10/31/20 at 12:18; Stop 10/31/20 at 12:19; Status DC Midazolam HCl (Versed) 2 mg STK-MED ONCE .ROUTE ; Start 10/31/20 at 12:18; Stop 10/31/20 at 12:19; Status DC Heparin Sodium/ Sodium Chloride 1,000 ml @ As Directed STK-MED ONCE .ROUTE ; Start 10/31/20 at 12:19; Stop 10/31/20 at 12:19; Status DC Lidocaine HCl (Lidocaine 1% 20ml Vial) 20 ml STK-MED ONCE .ROUTE ; Start 10/31/20 at 12:28; Stop 10/31/20 at 12:28; Status DC Heparin Sodium/ Sodium Chloride (HEPARIN for ARTERIAL LINE FLUSH) 1,000 unit 1X ONCE IART Last administered on 10/31/20at 13:35; Start 10/31/20 at 12:30; Stop 10/31/20 at 12:32; Status DC Heparin Sodium/ Sodium Chloride (HEPARIN for ARTERIAL LINE FLUSH) 1,000 unit 1X ONCE IART Last administered on 10/31/20at 13:35; Start 10/31/20 at 12:30; Stop 10/31/20 at 12:32; Status DC Midazolam HCl (Versed) 2 mg 1X ONCE IV Last administered on 10/31/20at 13:35; Start 10/31/20 at 12:30; Stop 10/31/20 at 12:32; Status DC Fentanyl Citrate (Fentanyl 2ml Vial) 100 mcg 1X ONCE IV Last administered on 10/31/20at 13:35; Start 10/31/20 at 12:30; Stop 10/31/20 at 12:32; Status DC Lidocaine HCl (Lidocaine 1% 20ml Vial) 20 ml 1X ONCE INJ Last administered on 10/31/20at 13:34; Start 10/31/20 at 12:30; Stop 10/31/20 at 12:32; Status DC Acetaminophen/ Hydrocodone Bitart (Lortab 5/325) 1 tab PRN Q6HRS PRN PO PAIN Last administered on 11/02/20at 16:17; Start 10/31/20 at 12:30 Furosemide (Lasix) 100 mg STK-MED ONCE .ROUTE ; Start 10/31/20 at 13:19; Stop 10/31/20 at 13:19; Status DC Furosemide (Lasix) 80 mg 1X ONCE IVP Last administered on 10/31/20at 13:36; Start 10/31/20 at 13:30; Stop 10/31/20 at 13:31; Status DC Lidocaine HCl (Glydo (Lidocaine) Jelly) 1 nathalie 1X ONCE MM ; Start 11/01/20 at 02:30; Stop 11/01/20 at 02:31; Status DC Metolazone (Zaroxolyn) 2.5 mg DAILY PO Last administered on 11/02/20at 13:42; Start 11/02/20 at 14:00 Active Scripts Active Flomax (Tamsulosin Hcl) 0.4 Mg Cap.er.24h 0.4 Mg PO DAILY Children's Aspirin (Aspirin) 81 Mg Tab.chew 81 Mg PO DAILYWBKFT Reported Senna-Docusate Sodium Tablet (Sennosides/Docusate Sodium) 1 Each Tablet 2 Tab PO PRN QEVNG PRN 5 Days Spironolactone 25 Mg Tablet 25 Mg PO DAILY Vitamin D2 (Ergocalciferol (Vitamin D2)) 1,250 Mcg Capsule 1,250 Mcg PO WEEKLY Lasix (Furosemide) 80 Mg Tablet 80 Mg PO BID Clopidogrel (Clopidogrel Bisulfate) 75 Mg Tablet 75 Mg PO DAILY Carvedilol 25 Mg Tablet 25 Mg PO BIDWMEALS Isosorbide Dinitrate 40 Mg Tablet.er 5 Mg PO TID Gabapentin 600 Mg Tablet 300 Mg PO TID Protonix (Pantoprazole Sodium) 40 Mg Tablet.dr 40 Mg PO BID Hydralazine Hcl 100 Mg Tablet 100 Mg PO TID Amlodipine Besylate 10 Mg Tablet 10 Mg PO DAILY Crestor (Rosuvastatin Calcium) 20 Mg Tablet 20 Mg PO QHS Levemir Flexpen (Insulin Detemir) 100 Unit/1 Ml Insuln.pen 60 Unit SQ HS Novolog Flexpen (Insulin Aspart) 100 Unit/1 Ml Insuln.pen 30 Unit SQ TIDAC Vitals/I & O Vital Sign - Last 24 Hours 11/01/20 11/01/20 11/01/20 11/01/20 17:38 19:30 20:00 20:23 Temp 97.7 97.7 Pulse 69 69 69 Resp 20 B/P (MAP) 146/73 129/44 (72) 129/44 Pulse Ox 94 O2 Delivery Nasal Cannula Nasal Cannula O2 Flow Rate 2.0 2.0 11/01/20 11/01/20 11/01/20 11/01/20 20:24 20:26 21:00 23:11 Temp 98.1 98.1 Pulse 69 61 Resp 20 20 22 B/P (MAP) 129/44 147/70 (95) Pulse Ox 94 94 90 O2 Delivery Nasal Cannula Nasal Cannula Nasal Cannula O2 Flow Rate 2.0 2.0 2.0 11/02/20 11/02/20 11/02/20 11/02/20 03:46 07:17 07:57 07:58 Temp 98.3 98.0 98.3 98.0 Pulse 64 66 66 66 Resp 22 22 B/P (MAP) 165/52 (89) 150/69 (96) 150/69 150/69 Pulse Ox 94 96 O2 Delivery Nasal Cannula Nasal Cannula O2 Flow Rate 2.0 2.0 11/02/20 11/02/20 11/02/20 11/02/20 07:59 08:00 08:00 08:08 Pulse 66 66 Resp 20 B/P (MAP) 150/69 150/69 Pulse Ox 96 O2 Delivery Nasal Cannula Nasal Cannula O2 Flow Rate 2.0 2.0 11/02/20 11/02/20 11/02/20 11/02/20 08:36 10:10 11:10 11:12 Temp 97.6 97.6 Pulse 62 Resp 20 20 20 24 B/P (MAP) 133/58 (83) Pulse Ox 96 96 96 96 O2 Delivery Nasal Cannula Nasal Cannula Nasal Cannula Nasal Cannula O2 Flow Rate 2.0 2.0 2.0 2.0 11/02/20 11/02/20 11/02/20 11/02/20 11:49 11:49 14:22 16:17 Temp 97.6 97.6 Pulse 62 62 65 Resp 24 20 B/P (MAP) 133/58 133/58 136/51 (79) Pulse Ox 96 96 O2 Delivery Nasal Cannula Nasal Cannula O2 Flow Rate 2.0 2.0 11/02/20 11/02/20 16:18 16:24 Pulse 65 Resp 20 B/P (MAP) 136/51 Pulse Ox 96 O2 Delivery Nasal Cannula O2 Flow Rate 2.0 Intake and Output 11/01/20 11/01/20 11/02/20 15:00 23:00 07:00 Intake Total 580 ml 450 ml 0 ml Output Total 405 ml 655 ml 760 ml Balance 175 ml -205 ml -760 ml Justifications for Admission Other Justification Acute respiratory failure with hypoxia, acute diastolic CHF exacerbation, right breast mass SALVADOR ANDERSON MD Nov 02, 2020 16:45
[2020-11-02] MEDS: INSULIN GLARGINE SYRINGE. SQ SCH (21:00)
[2020-11-02] MEDS: PATCH REMOVAL. MC SCH (21:00)
--- NOTE | 2020-11-02 21:00 | NUR ---
FSBS 54. States he feels "dizzy." 2 apple juices given.
--- NOTE | 2020-11-02 21:30 | NUR ---
FSBS 103. Dangling at bedside. Voided per urinal.
[2020-11-02] MEDS: cefTRIAXone IV Push 1 GM VIAL. IVP SCH (21:34)
[2020-11-02] MEDS: ATORVASTATIN CALCIUM 20 MG TABLET PO SCH (21:44)
[2020-11-02] MEDS: ZOLPIDEM 5 MG TABLET. PO PRN (21:45)
[2020-11-03 03:21] VITALS: BP 146/60
[2020-11-03 06:59] VITALS: BP 153/44
[2020-11-03] MEDS: INSULIN LISPRO 300 UNITS/3 ML VIAL. SQ SCH ×6 (08:34→16:54)
[2020-11-03] MEDS: HYDROcodone/APAP 5/325MG 1 TAB TABLET PO PRN ×2 (08:46→17:50)
[2020-11-03] MEDS: DULoxetine HCL 30 MG CAPSULE.DR PO SCH (08:46)
[2020-11-03] MEDS: LIDOCAINE (700MG/PATCH) PATCH. TD SCH (08:46)
[2020-11-03] MEDS: ASPIRIN CHEWABLE 81 MG TABLET. PO SCH (08:46)
[2020-11-03] MEDS: metOLazone 2.5 MG TABLET PO SCH (08:47)
[2020-11-03] MEDS: PANTOPRAZOLE 40 MG TABLET.DR. PO SCH ×2 (08:47→17:50)
[2020-11-03] MEDS: IRON POLYSACCHARIDE COMPLEX 150 MG CAPSULE PO SCH (08:47)
[2020-11-03] MEDS: CLOPIDOGREL BISULFATE 75 MG TABLET PO SCH (08:47)
[2020-11-03] MEDS: ISOSORBIDE DINITRATE 10 MG TABLET. PO SCH ×3 (08:47→21:05)
[2020-11-03] MEDS: CARVEDILOL 12.5 MG TABLET. PO SCH ×2 (08:48→17:00)
[2020-11-03] MEDS: GABAPENTIN 300 MG CAPSULE. PO SCH ×3 (08:48→21:05)
[2020-11-03] MEDS: TAMSULOSIN 0.4 MG CAP.ER.24H. PO SCH (08:48)
[2020-11-03] MEDS: amLODIPine BESYLATE 10 MG TABLET PO SCH (08:48)
--- NOTE | 2020-11-03 09:08 | NUR ---
at 0810 this morning 11/03, pt had hit call light and told staff he had fallen in the bathroom. Myself, another nurse, and a tech went back to check on pt. He was lying on the bathroom floor. Pt stated he did not hit his head, or anything hard enough to require an X-ray. We put gait belt on, and got pt to bed and then took vitals. Vitals were all fine but his blood pressure was elevated at 204/88. Rechecked again after 30 min and is now WNL. Gave pt a pain pill at 0850, will continue to monitor.
[2020-11-03 10:41] VITALS: BP 189/74
--- NOTE | 2020-11-03 11:15 | PDOC ---
DATE OF SERVICE DATE: 11/03/20 TIME: 11:13 SUBJECTIVE ROS stable no increase in O2 requirement OBJECTIVE Vital Signs Vital Signs Date Time Temp Pulse Resp B/P (MAP) Pulse Ox O2 Delivery O2 Flow Rate FiO2 11/03/20 10:41 98.0 82 22 189/74 (112) 96 Nasal Cannula 2.0 98.0 I & 0 Intake and Output 11/03/20 07:00 Intake Total 540 ml Output Total 1500 ml Balance -960 ml Intake Oral 540 ml Output Urine Total 1500 ml # Voids 1 # Bowel Movements 2 PHYSICAL EXAM Physical Exam General: Alert, Oriented X3, Cooperative, No acute distress HEENT: Atraumatic, Mucous membr. moist/pin, On o2 by NC Neck supple Lungs: Decreased at bases, Non labored Heart: distant heart sounds Abdomen: Soft, Morbidly obese Extremities: LE edema + Skin: No breakdown, No significant lesion Neuro: Normal speech, Sensation intact. Unable to move EDELMIRA Alvarez in place DIAGNOSIS/ASSESSMENT Assessment & Plan MARQUISE on CKD- ATN , cardiorenal, Overdiuresis , NonOliguric, Renal function stable Anemia- s/p PRBC, (Fe deficiency) , SPEP No M spike, GI consulted Mildly Elevated CK - statin held . Restart per cardiology CKD stage 3 B- Seen by [employer] in our practice . Cr was at his baseline at Presentation to [facility] Generalized weakness- netta LE Neuro consulted,unrelated to Renal failure Ac Resp failure - Stable on O2 by NC, Cxr No e/o pulm Congestion , Morbidly Obese, ROXANNE, COPD . DIURETICS per cardiology . Added Metolazone .Recommend Loop diuretic based on , daily weight and symptoms Acute on chronic diastolic CHF: due to noncompliance and continued cocaine use. CxR unremarkable AECOPD with continued tobaccoism ROXANNE: uses CPAP at home Substance abuse: uses cocaine HTN urgency: improved PAD: prior bypass, clinically stable COMMENT/RELEVANT DATA Meds Current Medications Medications (Trade) Dose Ordered Sig/Kiera Start Time Stop Time Status Last Admin Dose Admin Acetaminophen (Tylenol) 650 mg PRN Q6HRS PRN 10/20/20 16:15 10/25/20 14:19 650 MG Acetaminophen/ Hydrocodone Bitart (Lortab 5/325) 1 tab PRN Q6HRS PRN 10/31/20 12:30 11/03/20 08:46 1 TAB Al Hydroxide/Mg Hydroxide (Mylanta Plus Xs) 30 ml PRN Q3HRS PRN 10/20/20 16:15 10/31/20 12:38 DC Amlodipine Besylate (Norvasc) 10 mg DAILY 10/21/20 09:00 11/03/20 08:48 10 MG Aspirin (Aspirin Chewable) 81 mg [id number] 10/21/20 08:00 11/03/20 08:46 81 MG Atorvastatin Calcium (Lipitor) 20 mg QHS 11/02/20 21:00 11/02/20 21:44 20 MG Bisacodyl (Dulcolax Supp) 10 mg PRN DAILY PRN 10/20/20 16:15 Calcium Carbonate/ Glycine (Tums) 500 mg PRN Q3HRS PRN 10/20/20 16:15 Carvedilol (Coreg) 25 mg BIDWMEALS 10/20/20 17:30 11/03/20 08:48 25 MG Ceftriaxone Sodium (Rocephin) 1 gm Q24H 10/30/20 21:00 11/02/20 21:34 1 GM Clopidogrel Bisulfate (Plavix) 75 mg DAILY 10/21/20 09:00 11/03/20 08:47 75 MG Dextrose (Dextrose 50%-Water Syringe) 12.5 gm PRN Q15MIN PRN 10/20/20 15:45 Duloxetine HCl (Cymbalta) 60 mg DAILY 10/28/20 09:00 11/03/20 08:46 60 MG Fentanyl Citrate (Fentanyl 2ml Vial) 100 mcg 1X ONCE 10/31/20 12:30 10/31/20 12:32 DC 10/31/20 13:35 50 MCG Furosemide (Lasix) 80 mg 1X ONCE 10/31/20 13:30 10/31/20 13:31 DC 10/31/20 13:36 80 MG Gabapentin (Neurontin) 300 mg TID 10/20/20 21:00 11/03/20 08:48 300 MG Heparin Sodium (Porcine) (Heparin Sodium) 5,000 unit Q8HRS 10/20/20 16:30 10/29/20 07:14 DC 10/29/20 05:59 5,000 UNIT Heparin Sodium/ Sodium Chloride (HEPARIN for ARTERIAL LINE FLUSH) 1,000 unit 1X ONCE 10/31/20 12:30 10/31/20 12:32 DC 10/31/20 13:35 1,000 UNIT Hydralazine HCl (Apresoline Inj) 10 mg PRN Q20MIN PRN 10/20/20 15:30 10/20/20 16:28 10 MG Hydralazine HCl (Apresoline) 100 mg TID 10/20/20 21:00 11/03/20 08:47 100 MG Insulin Glargine (Lantus Syringe) 70 unit QHS 10/23/20 21:00 11/01/20 22:15 35 UNIT Insulin Human Lispro (HumaLOG) 30 units TIDWMEALS 10/21/20 08:00 11/03/20 08:34 30 UNITS Isosorbide Dinitrate (Isordil) 5 mg TID 10/20/20 21:00 11/03/20 08:47 5 MG Lactulose (Lactulose) 20 gm 1X ONCE 10/26/20 10:30 10/26/20 10:31 DC 10/26/20 12:47 20 GM Lidocaine (Lidoderm) 2 patch DAILY 10/24/20 09:00 11/03/20 08:46 1 PATCH Lidocaine HCl (Glydo (Lidocaine) Jelly) 1 nathalie 1X ONCE 11/01/20 02:30 11/01/20 02:31 DC Lidocaine HCl (Lidocaine 1% 20ml Vial) 20 ml 1X ONCE 10/31/20 12:30 10/31/20 12:32 DC 10/31/20 13:34 6 ML Lorazepam (Ativan Inj) 1 mg PRN Q4HRS PRN 10/20/20 17:30 10/22/20 11:57 1 MG Magnesium Hydroxide (Milk Of Magnesia) 2,400 mg PRN Q12HR PRN 10/20/20 16:15 10/31/20 12:37 DC 10/22/20 06:11 2,400 MG Metolazone (Zaroxolyn) 2.5 mg DAILY 11/02/20 14:00 11/03/20 08:47 2.5 MG Midazolam HCl (Versed) 2 mg 1X ONCE 10/31/20 12:30 10/31/20 12:32 DC 10/31/20 13:35 2 MG Miscellaneous (Lidoderm Patch Removal) 1 ea QHS 10/24/20 21:00 11/01/20 20:28 1 EA Morphine Sulfate (Morphine Sulfate) 4 mg 1X ONCE 10/30/20 22:00 10/30/20 22:01 DC 10/30/20 22:00 4 MG Nitroglycerin (Nitro-Bid Oint) 1 inch 1X ONCE 10/20/20 13:15 10/20/20 13:16 DC 10/20/20 13:22 1 INCH Ondansetron HCl (Zofran) 4 mg PRN Q6HRS PRN 10/20/20 16:15 10/22/20 11:57 4 MG Pantoprazole Sodium (Protonix) 40 mg BIDAC 10/20/20 17:30 11/03/20 08:47 40 MG Polysaccharide Iron Complex (Niferex 150) 150 mg DAILY 10/24/20 14:00 11/03/20 08:47 150 MG Senna/Docusate Sodium (Senna Plus) 2 tab PRN QEVNG PRN 10/20/20 17:30 Sodium Chloride 1,000 ml @ 75 mls/hr [id number] 10/25/20 14:00 10/30/20 13:30 DC 10/28/20 20:48 75 MLS/HR Spironolactone (Aldactone) 25 mg DAILY 10/21/20 09:00 10/21/20 14:06 DC 10/21/20 08:52 25 MG Tamsulosin HCl (Flomax) 0.4 mg DAILY 10/21/20 09:00 11/03/20 08:48 0.4 MG Tramadol HCl (Ultram) 50 mg PRN Q6HRS PRN 10/20/20 16:30 10/30/20 20:36 DC 10/24/20 08:25 50 MG Zolpidem Tartrate (Ambien) 5 mg PRN QHS PRN 10/20/20 16:15 11/02/20 21:45 5 MG Lab Laboratory Tests Test 11/02/20 11:30 11/02/20 16:49 11/02/20 20:59 11/02/20 21:40 Glucose (Fingerstick) 138 mg/dL (70-99) 213 mg/dL (70-99) 54 mg/dL (70-99) 103 mg/dL (70-99) Test 2/18/21 07:46 Glucose (Fingerstick) 227 mg/dL (70-99) Results All relevant outside records, renal labs, imaging studies, telemetry/EKG's were reviewed. Justicifation of Admission Dx: Justifications for Admission: Justification of Admission Dx: N/A NATASHA MCDONALD MD Nov 03, 2020 11:15
[2020-11-03 12:21] LABS: CREATININE 2.2 mg/dL (0.7-1.3); GFR 37.7; POTASSIUM 5.6 mmol/L (3.5-5.1)
--- NOTE | 2020-11-03 12:57 | PDOC ---
Date of Service: DATE: 11/03/20 TIME: 12:53 Objective: Objective: No GI concerns per staff, fell out of bed. Vital Signs: Vital Signs Date Time Temp Pulse Resp B/P (MAP) Pulse Ox O2 Delivery O2 Flow Rate FiO2 11/03/20 10:41 98.0 82 22 189/74 (112) 96 Nasal Cannula 2.0 98.0 Labs: Laboratory Tests Test 11/02/20 16:49 11/02/20 20:59 11/02/20 21:40 11/03/20 07:46 Glucose (Fingerstick) 213 mg/dL (70-99) 54 mg/dL (70-99) 103 mg/dL (70-99) 227 mg/dL (70-99) Test 11/03/20 11:44 Glucose (Fingerstick) 164 mg/dL (70-99) ORDERED: XANDER/KVNG/RC COMMENTS: PENIS Procedure Result -- GRAM STAIN Final Final GRAM NEGATIVE RODS:FEW GRAM POSITIVE RODS:RARE SQUAMOUS EPI CELL:NONE SEEN PMN (WBCs):MANY Unless otherwise specified, Testing Performed by: [address] [id number] For Inquires, the Physician may contact the Microbiology department at [phone] ANAEROBIC-AEROBIC CULTURE Preliminary Preliminary MIXED AEROBIC SHANNON on 11/02/20 at 1346 INCLUDING: FEW [STAPHYLOCOCCUS EPIDERMIDIS] FEW [CORYNEBACTERIUM AURIMUCOSUM GR] FEW [STAPHYLOCOCCUS HAEMOLYTICUS] MODERATE [PEPTONIPHILUS SPECIES] on 11/03/20 at 1141 FEW [PREVOTELLA SPECIES] on 11/03/20 at 1141 UNIDENTIFIED ORGANISM STAPHYLOCOCCUS EPIDERMIDIS CORYNEBACTERIUM AURIMUCOSUM GR PEPTONIPHILUS SPECIES PREVOTELLA SPECIES STAPHYLOCOCCUS HAEMOLYTICUS Unless otherwise specified, Testing Performed by: [address] [id number] For Inquires, the Physician may contact the Microbiology department at [phone] PE: GEN: NAD ABD: large NEURO/PSYCH: sleeping, not awakened A/P: CHF, CKD CORY, GERD COVID negative 2/4 Substance abuse -- Continue same per GI. Justicifation of Admission Dx: Justifications for Admission: Justification of Admission Dx: N/A CHRISTIANE SOLITARIO Nov 03, 2020 12:57
--- NOTE | 2020-11-03 13:02 | PDOC ---
PROGRESS NOTES Date of Service: DATE: 11/03/20 TIME: 12:59 Chief Complaint Chief Complaint impression Acute respiratory failure with hypoxia Acute diastolic heart failure (CHF) aortic stenosis Elevated brain natriuretic peptide (BNP) level Pulmonary HTN , severe due to cocaine abuse CKD Normocytic anemia Hypertensive urgency moderate mitral regurgitation. Right breast mass Malnutrition normocytic anemia CKD stage 3 B- Seen by [employer] RO[employer] CLERK renal . Cr was at his baseline at Presentation to [facility] Peripheral neuropathy, most likely from diabetes exacerbated by acute metabolic issues including anemia and renal failure. Consider acute inflammatory demyelinating neuropathy, 2-11 remains SOA, using bipap at hs poor prognosis due to cocaine abuse 2-12 possibility of visiting with the Pulmonary Hypertension Clinic at [facility]. HE HAS NOT FOLLOWED UP, may benefit from hospice if remains noncompliant and continues cocaine usage -13 transfused today will consult GI ? EGD, AM LABS, IV PROTONIX 10-30 pos urine drug screen for cocaine ,, ct penis, cardiac cath in am mod penile edema 28 MIN pt exam, chart review, > 50% of time spent with exam, chart review, pt care coordination History of Present Illness History of Present Illness 11/03 , discussed his urine drug screen from 10/29, where he tested positive to cocaine and PCP - he denies vehemently and stared me down in a weird way./ I discussed that guys who do cocaine dont usually live past age 56. He was mad and wanted me to "make him better" - I think his ability to improve is going to be limited 11-02 Patient seen and evaluated. Denies chest pain or shortness of breath. Net fluid balance continues to be negative. Creatinine continues to be stable around 2.4. Continue diuresis. Receiving Rocephin prophylactically for penile edema. 11-01 Patient seen and evaluated. Denies chest pain. He had left heart cath yesterday showing elevated biventricular filling pressures, moderate pulmonary pretension due to diastolic dysfunction, cor pulmonale. He was recommended to continue aggressive diuresis and monitor renal function. Discussed weight loss and treatment of ROXANNE. 10-31 Seen and evaluated. Still c/o intemittent chesty pain. CT penis yesterday showed soft tissue edema involving the penis scrotum, thought to be related to volume overload given diffuse soft tissue anasarca. LHC today. Discussed with RN. 10-30 CATH IN AM,, moderate penile edema, perhaps related to ascites, will obtain ct penis and scrotum 10-29 remains anemic after one unit, consulted GI , NPO possible PUD , CT ABD, PELVIS 10-28 cr 2.5, transfused, D/W RN, AM CBC - remains SOA, using cpap at hs poor prognosis due to cocaine abuse, abg today 2-10 Peripheral neuropathy, most likely from diabetes rule out other causes, exacerbated by acute metabolic issues including anemia and renal failure. Consider acute inflammatory demyelinating neuropathy, D/W RN 10/25 - Pt is in moderate distress, states he is profoundly weak and is eager to get to the bottom on this problem. Discussed his continue compliance with cpap machine. Mr Moran is a 54yo M w/ PMHx Diabetes-Type II, High Cholesterol, Hypertension, Pancreatitis, CKD 4, presents to the ER with complaint of worsening shortness of breath of the past 3 days. He reports associated intermittent chest pain and bilateral lower extremity swelling. States his symptoms are worse with exertion. Upon arrival in the ED his BNP was 3029. He was placed on BiPAP given IV morphine with improvement of symptoms. States he has not taken any of his home medications today. He does report a tender lump in his right breast for the past 3 weeks, reports a family history of breast cancer. He denies any fever, sick contacts, or known COVID-19 exposure. Will admit patient for further medical management. 10/21: Patient seen and evaluated. Improved on BiPAP overnight. Afebrile, denies chest pain. Blood pressure better controlled. CBG 323 this morning. Of note patient did order two trays of nondiabetic meals, and had fried chicken delivered to his room last night. Discussed importance of cardiac and diabetic diet for his heart health. Continue to diurese with Lasix. Echocardiogram and ultrasound right breast pending. If appropriately diuresed and no concerning findings on right breast ultrasound, Vitals Vitals Vital Signs Date Time Temp Pulse Resp B/P (MAP) Pulse Ox O2 Delivery O2 Flow Rate FiO2 11/03/20 10:41 98.0 82 22 189/74 (112) 96 Nasal Cannula 2.0 98.0 Physical Exam General: No acute distress Heart: Regular rate Lungs: Clear, Wheezing, Crackles Abdomen: Normal bowel sounds Extremities: No cyanosis, Other Skin: No breakdown, No significant lesion Labs LABS Laboratory Tests Test 11/02/20 16:49 11/02/20 20:59 11/02/20 21:40 11/03/20 07:46 Glucose (Fingerstick) 213 mg/dL (70-99) 54 mg/dL (70-99) 103 mg/dL (70-99) 227 mg/dL (70-99) Test 11/03/20 11:44 11/03/20 11:50 Glucose (Fingerstick) 164 mg/dL (70-99) Sodium Level 140 mmol/L (136-145) Potassium Level 5.6 mmol/L (3.5-5.1) Chloride Level 107 mmol/L (98-107) Carbon Dioxide Level 24 mmol/L (21-32) Anion Gap 9 (6-14) Blood Urea Nitrogen 55 mg/dL (8-26) Creatinine 2.2 mg/dL (0.7-1.3) Estimated GFR (Cockcroft-Gault) 37.7 Glucose Level 111 mg/dL (70-99) Calcium Level 9.0 mg/dL (8.5-10.1) Assessment and Plan Assessmemt and Plan Problems Medical Problems: (1) Chest pain Status: Acute (2) CHF exacerbation Status: Acute (3) HTN (hypertension) Status: Acute (4) Person under investigation for COVID-19 Status: Acute Comment Review of Relevant I have reviewed the following items karissa (where applicable) has been applied. Labs Laboratory Tests Test 11/01/20 17:33 11/01/20 21:05 11/02/20 05:30 11/02/20 07:15 Glucose (Fingerstick) 138 mg/dL (70-99) 149 mg/dL (70-99) 74 mg/dL (70-99) White Blood Count 4.3 x10^3/uL (4.0-11.0) Red Blood Count 2.59 x10^6/uL (4.30-5.70) Hemoglobin 7.4 g/dL (13.0-17.5) Hematocrit 23.1 % (39.0-53.0) Mean Corpuscular Volume 89 fL (79-100) Mean Corpuscular Hemoglobin 29 pg (25-35) Mean Corpuscular Hemoglobin Concent 32 g/dL (31-37) Red Cell Distribution Width 15.1 % (11.5-14.5) Platelet Count 260 x10^3/uL (140-400) Neutrophils (%) (Auto) 65 % (31-73) Lymphocytes (%) (Auto) 21 % (24-48) Monocytes (%) (Auto) 8 % (0-9) Eosinophils (%) (Auto) 5 % (0-3) Basophils (%) (Auto) 1 % (0-3) Neutrophils # (Auto) 2.8 x10^3/uL (1.8-7.7) Lymphocytes # (Auto) 0.9 x10^3/uL (1.0-4.8) Monocytes # (Auto) 0.3 x10^3/uL (0.0-1.1) Eosinophils # (Auto) 0.2 x10^3/uL (0.0-0.7) Basophils # (Auto) 0.0 x10^3/uL (0.0-0.2) Sodium Level 140 mmol/L (136-145) Potassium Level 5.1 mmol/L (3.5-5.1) Chloride Level 107 mmol/L (98-107) Carbon Dioxide Level 25 mmol/L (21-32) Anion Gap 8 (6-14) Blood Urea Nitrogen 56 mg/dL (8-26) Creatinine 2.4 mg/dL (0.7-1.3) Estimated GFR (Cockcroft-Gault) 34.1 Glucose Level 92 mg/dL (70-99) Calcium Level 8.8 mg/dL (8.5-10.1) Test 11/02/20 11:30 11/02/20 16:49 11/02/20 20:59 11/02/20 21:40 Glucose (Fingerstick) 138 mg/dL (70-99) 213 mg/dL (70-99) 54 mg/dL (70-99) 103 mg/dL (70-99) Test 11/03/20 07:46 11/03/20 11:44 11/03/20 11:50 Glucose (Fingerstick) 227 mg/dL (70-99) 164 mg/dL (70-99) Sodium Level 140 mmol/L (136-145) Potassium Level 5.6 mmol/L (3.5-5.1) Chloride Level 107 mmol/L (98-107) Carbon Dioxide Level 24 mmol/L (21-32) Anion Gap 9 (6-14) Blood Urea Nitrogen 55 mg/dL (8-26) Creatinine 2.2 mg/dL (0.7-1.3) Estimated GFR (Cockcroft-Gault) 37.7 Glucose Level 111 mg/dL (70-99) Calcium Level 9.0 mg/dL (8.5-10.1) Laboratory Tests Test 11/02/20 16:49 11/02/20 20:59 11/02/20 21:40 11/03/20 07:46 Glucose (Fingerstick) 213 mg/dL (70-99) 54 mg/dL (70-99) 103 mg/dL (70-99) 227 mg/dL (70-99) Test 11/03/20 11:44 11/03/20 11:50 Glucose (Fingerstick) 164 mg/dL (70-99) Sodium Level 140 mmol/L (136-145) Potassium Level 5.6 mmol/L (3.5-5.1) Chloride Level 107 mmol/L (98-107) Carbon Dioxide Level 24 mmol/L (21-32) Anion Gap 9 (6-14) Blood Urea Nitrogen 55 mg/dL (8-26) Creatinine 2.2 mg/dL (0.7-1.3) Estimated GFR (Cockcroft-Gault) 37.7 Glucose Level 111 mg/dL (70-99) Calcium Level 9.0 mg/dL (8.5-10.1) Microbiology 10/31/20 Gram Stain - Final, Resulted 10/31/20 Aerobic and Anaerobic Culture - Preliminary, Resulted 10/30/20 Urine Culture - Final, Complete Medications Current Medications Nitroglycerin (Nitro-Bid Oint) 1 inch 1X ONCE TP Last administered on 10/20/20at 13:22; Start 10/20/20 at 13:15; Stop 10/20/20 at 13:16; Status DC Morphine Sulfate (Morphine Sulfate) 4 mg 1X ONCE IV Last administered on 10/20/20at 13:23; Start 10/20/20 at 13:15; Stop 10/20/20 at 13:16; Status DC Furosemide (Lasix) 80 mg 1X ONCE IVP Last administered on 10/20/20at 16:25; Start 10/20/20 at 15:45; Stop 10/20/20 at 15:46; Status DC Hydralazine HCl (Apresoline Inj) 10 mg PRN Q20MIN PRN IVP ELEVATED BP, SEE COMMENTS Last administered on 10/20/20at 16:28; Start 10/20/20 at 15:30 Furosemide (Lasix) 80 mg [id number] PO Last administered on 10/23/20at 08:11; Start 10/21/20 at 09:00; Stop 10/24/20 at 15:14; Status DC Insulin Human Lispro (HumaLOG) 0-9 UNITS TIDWMEALS SQ Last administered on 11/03/20at 12:31; Start 10/20/20 at 17:00 Dextrose (Dextrose 50%-Water Syringe) 12.5 gm PRN Q15MIN PRN IV SEE COMMENTS; Start 10/20/20 at 15:45 Ondansetron HCl (Zofran) 4 mg PRN Q6HRS PRN IVP NAUSEA/VOMITING Last administered on 10/22/20at 11:57; Start 10/20/20 at 16:15 Al Hydroxide/Mg Hydroxide (Mylanta Plus Xs) 30 ml PRN Q3HRS PRN PO HEARTBURN / GAS; Start 10/20/20 at 16:15; Stop 10/31/20 at 12:38; Status DC Calcium Carbonate/ Glycine (Tums) 500 mg PRN Q3HRS PRN PO UPSET STOMACH; Start 10/20/20 at 16:15 Zolpidem Tartrate (Ambien) 5 mg PRN QHS PRN PO INSOMNIA, MAY REPEAT IN 1HR Last administered on 11/02/20at 21:45; Start 10/20/20 at 16:15 Acetaminophen (Tylenol) 650 mg PRN Q6HRS PRN PO Headaches, Temp > 101.5F Last administered on 10/25/20at 14:19; Start 10/20/20 at 16:15 Magnesium Hydroxide (Milk Of Magnesia) 2,400 mg PRN Q12HR PRN PO CONSTIPATION (1ST CHOICE) Last administered on 10/22/20at 06:11; Start 10/20/20 at 16:15; Stop 10/31/20 at 12:37; Status DC Bisacodyl (Dulcolax Supp) 10 mg PRN DAILY PRN IA CONSTIPATION; Start 10/20/20 at 16:15 Heparin Sodium (Porcine) (Heparin Sodium) 5,000 unit Q8HRS SQ Last administered on 10/29/20at 05:59; Start 10/20/20 at 16:30; Stop 10/29/20 at 07:14; Status DC Morphine Sulfate (Morphine Sulfate) 4 mg PRN Q2HR PRN IV MODERATE TO SEVERE PAIN Last administered on 11/02/20at 16:24; Start 10/20/20 at 16:30 Tramadol HCl (Ultram) 50 mg PRN Q6HRS PRN PO MILD TO MODERATE PAIN Last administered on 10/24/20 08:25; Start 10/20/20 at 16:30; Stop 10/30/20 at 20:36; Status DC Amlodipine Besylate (Norvasc) 10 mg DAILY PO Last administered on 11/03/20at 08:48; Start 10/21/20 at 09:00 Aspirin (Aspirin Chewable) 81 mg DAILYWBKFT PO Last administered on 11/03/20at 08:46; Start 10/21/20 at 08:00 Clopidogrel Bisulfate (Plavix) 75 mg DAILY PO Last administered on 11/03/20at 08:47; Start 10/21/20 at 09:00 Furosemide (Lasix) 80 mg [id number] PO Last administered on 10/21/20 08:54; Start 10/20/20 at 17:30; Stop 10/21/20 at 09:37; Status DC Pantoprazole Sodium (Protonix) 40 mg BIDAC PO Last administered on 11/03/20at 08:47; Start 10/20/20 at 17:30 Senna/Docusate Sodium (Senna Plus) 2 tab PRN QEVNG PRN PO CONSTIPATION; Start 10/20/20 at 17:30 Spironolactone (Aldactone) 25 mg DAILY PO Last administered on 10/21/20at 08:52; Start 10/21/20 at 09:00; Stop 10/21/20 at 14:06; Status DC Tamsulosin HCl (Flomax) 0.4 mg DAILY PO Last administered on 11/03/20at 08:48; Start 10/21/20 at 09:00 Carvedilol (Coreg) 25 mg BIDWMEALS PO Last administered on 11/03/20 08:48; Start 10/20/20 at 17:30 Gabapentin (Neurontin) 300 mg TID PO Last administered on 11/03/20 08:48; Start 10/20/20 at 21:00 Hydralazine HCl (Apresoline) 100 mg TID PO Last administered on 11/03/20 08:47; Start 10/20/20 at 21:00 Insulin Human Lispro (HumaLOG) 30 units TIDWMEALS SQ Last administered on 11/03/20 12:30; Start 10/21/20 at 08:00 Insulin Glargine (Lantus Syringe) 60 unit QHS SQ Last administered on 10/22/20 21:17; Start 10/20/20 at 21:00; Stop 10/23/20 at 13:07; Status DC Isosorbide Dinitrate (Isordil) 5 mg TID PO Last administered on 11/03/20 08:47; Start 10/20/20 at 21:00 Atorvastatin Calcium (Lipitor) 80 mg QHS PO Last administered on 10/24/20 21:42; Start 10/20/20 at 21:00; Stop 10/25/20 at 13:42; Status DC Lorazepam (Ativan Inj) 1 mg PRN Q4HRS PRN IVP ANXIETY / AGITATION Last administered on 10/22/20 11:57; Start 10/20/20 at 17:30 Insulin Glargine (Lantus Syringe) 70 unit QHS SQ Last administered on 11/01/20 22:15; Start 10/23/20 at 21:00 Lidocaine (Lidoderm) 2 patch DAILY TD Last administered on 11/03/20 08:46; Start 10/24/20 at 09:00 Miscellaneous (Lidoderm Patch Removal) 1 ea QHS MC Last administered on 11/01/20 20:28; Start 10/24/20 at 21:00 Polysaccharide Iron Complex (Niferex 150) 150 mg DAILY PO Last administered on 11/03/20 08:47; Start 10/24/20 at 14:00 Sodium Chloride 1,000 ml @ 75 mls/hr [id number] ONCE IV ; Start 10/25/20 at 11:15; Stop 10/25/20 at 13:42; Status DC Sodium Chloride 1,000 ml @ 75 mls/hr [id number] IV Last administered on 10/28/20at 20:48; Start 10/25/20 at 14:00; Stop 10/30/20 at 13:30; Status DC Duloxetine HCl (Cymbalta) 30 mg DAILY PO Last administered on 10/27/20at 08:03; Start 10/25/20 at 15:00; Stop 10/27/20 at 13:33; Status DC Lactulose (Lactulose) 20 gm 1X ONCE PO Last administered on 10/26/20at 12:47; Start 10/26/20 at 10:30; Stop 10/26/20 at 10:31; Status DC Lactulose (Lactulose) 20 gm 1X ONCE PO Last administered on 10/26/20at 12:47; Start 10/26/20 at 10:30; Stop 10/26/20 at 10:31; Status DC Duloxetine HCl (Cymbalta) 60 mg DAILY PO Last administered on 11/03/20at 08:46; Start 10/28/20 at 09:00 Furosemide (Lasix) 40 mg 1X ONCE IVP Last administered on 10/30/20at 12:37; Start 10/30/20 at 12:15; Stop 10/30/20 at 12:20; Status DC Morphine Sulfate (Morphine Sulfate) 4 mg 1X ONCE IM ; Start 10/30/20 at 20:45; Stop 10/30/20 at 20:46; Status Cancel Ceftriaxone Sodium (Rocephin) 1 gm Q24H IVP Last administered on 11/02/20at 21:34; Start 10/30/20 at 21:00 Furosemide (Lasix) 40 mg 1X ONCE IVP Last administered on 10/30/20at 21:00; Start 10/30/20 at 21:00; Stop 10/30/20 at 21:01; Status DC Morphine Sulfate (Morphine Sulfate) 4 mg 1X ONCE IV Last administered on 10/30at 22:00; Start 10/30/20 at 22:00; Stop 10/30/20 at 22:01; Status DC Fentanyl Citrate (Fentanyl 2ml Vial) 100 mcg STK-MED ONCE .ROUTE ; Start 10/31/20 at 12:18; Stop 10/31/20 at 12:19; Status DC Midazolam HCl (Versed) 2 mg STK-MED ONCE .ROUTE ; Start 10/31/20 at 12:18; Stop 10/31/20 at 12:19; Status DC Heparin Sodium/ Sodium Chloride 1,000 ml @ As Directed STK-MED ONCE .ROUTE ; Start 10/31/20 at 12:19; Stop 10/31/20 at 12:19; Status DC Lidocaine HCl (Lidocaine 1% 20ml Vial) 20 ml STK-MED ONCE .ROUTE ; Start 10/31/20 at 12:28; Stop 10/31/20 at 12:28; Status DC Heparin Sodium/ Sodium Chloride (HEPARIN for ARTERIAL LINE FLUSH) 1,000 unit 1X ONCE IART Last administered on 10/31/20at 13:35; Start 10/31/20 at 12:30; Stop 10/31/20 at 12:32; Status DC Heparin Sodium/ Sodium Chloride (HEPARIN for ARTERIAL LINE FLUSH) 1,000 unit 1X ONCE IART Last administered on 10/31/20at 13:35; Start 10/31/20 at 12:30; Stop 10/31/20 at 12:32; Status DC Midazolam HCl (Versed) 2 mg 1X ONCE IV Last administered on 10/31/20at 13:35; Start 10/31/20 at 12:30; Stop 10/31/20 at 12:32; Status DC Fentanyl Citrate (Fentanyl 2ml Vial) 100 mcg 1X ONCE IV Last administered on 10/31/20at 13:35; Start 10/31/20 at 12:30; Stop 10/31/20 at 12:32; Status DC Lidocaine HCl (Lidocaine 1% 20ml Vial) 20 ml 1X ONCE INJ Last administered on 10/31/20at 13:34; Start 10/31/20 at 12:30; Stop 10/31/20 at 12:32; Status DC Acetaminophen/ Hydrocodone Bitart (Lortab 5/325) 1 tab PRN Q6HRS PRN PO PAIN Last administered on 11/03/20at 08:46; Start 10/31/20 at 12:30 Furosemide (Lasix) 100 mg STK-MED ONCE .ROUTE ; Start 10/31/20 at 13:19; Stop 10/31/20 at 13:19; Status DC Furosemide (Lasix) 80 mg 1X ONCE IVP Last administered on 10/31/20at 13:36; Start 10/31/20 at 13:30; Stop 10/31/20 at 13:31; Status DC Lidocaine HCl (Glydo (Lidocaine) Jelly) 1 nathalie 1X ONCE MM ; Start 11/01/20 at 02:30; Stop 11/01/20 at 02:31; Status DC Metolazone (Zaroxolyn) 2.5 mg DAILY PO Last administered on 11/03/20at 08:47; Start 11/02/20 at 14:00 Atorvastatin Calcium (Lipitor) 20 mg QHS PO Last administered on 11/02/20at 21:44; Start 11/02/20 at 21:00 Active Scripts Active Flomax (Tamsulosin Hcl) 0.4 Mg Cap.er.24h 0.4 Mg PO DAILY Children's Aspirin (Aspirin) 81 Mg Tab.chew 81 Mg PO DAILYWBKFT Reported Senna-Docusate Sodium Tablet (Sennosides/Docusate Sodium) 1 Each Tablet 2 Tab PO PRN QEVNG PRN 5 Days Spironolactone 25 Mg Tablet 25 Mg PO DAILY Vitamin D2 (Ergocalciferol (Vitamin D2)) 1,250 Mcg Capsule 1,250 Mcg PO WEEKLY Lasix (Furosemide) 80 Mg Tablet 80 Mg PO BID Clopidogrel (Clopidogrel Bisulfate) 75 Mg Tablet 75 Mg PO DAILY Carvedilol 25 Mg Tablet 25 Mg PO BIDWMEALS Isosorbide Dinitrate 40 Mg Tablet.er 5 Mg PO TID Gabapentin 600 Mg Tablet 300 Mg PO TID Protonix (Pantoprazole Sodium) 40 Mg Tablet.dr 40 Mg PO BID Hydralazine Hcl 100 Mg Tablet 100 Mg PO TID Amlodipine Besylate 10 Mg Tablet 10 Mg PO DAILY Crestor (Rosuvastatin Calcium) 20 Mg Tablet 20 Mg PO QHS Levemir Flexpen (Insulin Detemir) 100 Unit/1 Ml Insuln.pen 60 Unit SQ HS Novolog Flexpen (Insulin Aspart) 100 Unit/1 Ml Insuln.pen 30 Unit SQ TIDAC Vitals/I & O Vital Sign - Last 24 Hours 11/02/20 11/02/20 11/02/20 11/02/20 14:22 16:17 16:18 16:24 Temp 97.6 97.6 Pulse 65 65 Resp 24 20 20 B/P (MAP) 136/51 (79) 136/51 Pulse Ox 96 96 96 O2 Delivery Nasal Cannula Nasal Cannula Nasal Cannula O2 Flow Rate 2.0 2.0 2.0 11/02/20 11/02/20 11/02/20 11/02/20 16:54 17:17 19:20 20:00 Temp 97.5 97.5 Pulse 65 Resp B/P (MAP) 138/60 (86) Pulse Ox 96 96 96 96 O2 Delivery Nasal Cannula Nasal Cannula Nasal Cannula Nasal Cannula O2 Flow Rate 2.0 2.0 3.0 2.0 11/02/20 11/02/20 11/02/20 11/02/20 20:00 21:00 21:44 22:30 Pulse 68 62 B/P (MAP) 139/60 130/68 Pulse Ox 95 O2 Delivery Nasal Cannula BiPAP/CPAP O2 Flow Rate 3.0 11/02/20 11/03/20 11/03/20 11/03/20 22:49 03:21 06:59 08:47 Temp 97.7 98.0 97.9 97.7 98.0 97.9 Pulse 59 63 64 64 Resp 22 B/P (MAP) 140/60 (86) 146/60 (88) 153/44 (80) 153/44 Pulse Ox 99 100 94 O2 Delivery Nasal Cannula Nasal Cannula Nasal Cannula O2 Flow Rate 2.0 2.0 2.0 11/03/20 11/03/20 11/03/20 11/03/20 08:47 08:48 08:48 10:41 Temp 98.0 98.0 Pulse 64 64 64 82 Resp 22 B/P (MAP) 153/44 153/44 153/44 189/74 (112) Pulse Ox 96 O2 Delivery Nasal Cannula O2 Flow Rate 2.0 Intake and Output 11/02/20 11/02/20 11/03/20 15:00 23:00 07:00 Intake Total 120 ml 180 ml 240 ml Output Total 700 ml 450 ml 350 ml Balance -580 ml -270 ml -110 ml Justicifation of Admission Dx: Justifications for Admission: Justification of Admission Dx: N/A PAUL CERRATO MD Nov 03, 2020 13:02
[2020-11-03] MEDS ORDERED: FUROSEMIDE 100 MG/10 ML VIAL. IVP ONE (13:15)
--- NOTE | 2020-11-03 13:32 | PDOC ---
PROGRESS NOTES Date of Service DATE: 11/03/20 TIME: 13:31 Assessment Problems Medical Problems: (1) Chest pain Status: Acute (2) CHF exacerbation Status: Acute (3) HTN (hypertension) Status: Acute (4) Person under investigation for COVID-19 Status: Acute Peripheral neuropathy, most likely from diabetes (hemoglobin A1c is 6.9), labs negative for other causes, exacerbated by acute metabolic issues including anemia and renal failure. Consider acute inflammatory demyelinating neuropathy, but this is unlikely, patient started getting weak at least a year ago. I find no evidence of central nervous system disease including myelopathy. Lab work so far is negative. He denies significant back pain Substance abuse, cocaine and urine drug screen drawn 9 days after admission Cardiac catheterization, 10/31, elevated biventricular filling pressures and cor pulmonale, planning on medical treatment Plan Okay to resume statin Rehabilitation modalities, needs inpatient rehab, insurance has denied Continue gabapentin and duloxetine. Follow-up with me for outpatient EMG studies Subjective Willing to go home with home health Objective Vital Signs Date Time Temp Pulse Resp B/P (MAP) Pulse Ox O2 Delivery O2 Flow Rate FiO2 11/03/20 10:41 98.0 82 22 189/74 (112) 96 Nasal Cannula 2.0 98.0 Intake and Output 11/03/20 07:00 Intake Total 540 ml Output Total 1500 ml Balance -960 ml Intake Oral 540 ml Output Urine Total 1500 ml # Voids 1 # Bowel Movements 2 PHYSICAL EXAM Alert. Oriented to time, place and person. PERRL. EOMI. CN: no focal findings. Muscle tone: normal. Muscle strength: 4/5 DTR: 0+ Plantar reflex: Flexor Gait: not examined in bed. Sensory exam: Stocking loss. Review of Relevant I have reviewed the following items karissa (where applicable) has been applied. Labs Laboratory Tests Test 11/01/20 17:33 11/01/20 21:05 11/02/20 05:30 11/02/20 07:15 Glucose (Fingerstick) 138 mg/dL (70-99) 149 mg/dL (70-99) 74 mg/dL (70-99) White Blood Count 4.3 x10^3/uL (4.0-11.0) Red Blood Count 2.59 x10^6/uL (4.30-5.70) Hemoglobin 7.4 g/dL (13.0-17.5) Hematocrit 23.1 % (39.0-53.0) Mean Corpuscular Volume 89 fL (79-100) Mean Corpuscular Hemoglobin 29 pg (25-35) Mean Corpuscular Hemoglobin Concent 32 g/dL (31-37) Red Cell Distribution Width 15.1 % (11.5-14.5) Platelet Count 260 x10^3/uL (140-400) Neutrophils (%) (Auto) 65 % (31-73) Lymphocytes (%) (Auto) 21 % (24-48) Monocytes (%) (Auto) 8 % (0-9) Eosinophils (%) (Auto) 5 % (0-3) Basophils (%) (Auto) 1 % (0-3) Neutrophils # (Auto) 2.8 x10^3/uL (1.8-7.7) Lymphocytes # (Auto) 0.9 x10^3/uL (1.0-4.8) Monocytes # (Auto) 0.3 x10^3/uL (0.0-1.1) Eosinophils # (Auto) 0.2 x10^3/uL (0.0-0.7) Basophils # (Auto) 0.0 x10^3/uL (0.0-0.2) Sodium Level 140 mmol/L (136-145) Potassium Level 5.1 mmol/L (3.5-5.1) Chloride Level 107 mmol/L (98-107) Carbon Dioxide Level 25 mmol/L (21-32) Anion Gap 8 (6-14) Blood Urea Nitrogen 56 mg/dL (8-26) Creatinine 2.4 mg/dL (0.7-1.3) Estimated GFR (Cockcroft-Gault) 34.1 Glucose Level 92 mg/dL (70-99) Calcium Level 8.8 mg/dL (8.5-10.1) Test 11/02/20 11:30 11/02/20 16:49 11/02/20 20:59 11/02/20 21:40 Glucose (Fingerstick) 138 mg/dL (70-99) 213 mg/dL (70-99) 54 mg/dL (70-99) 103 mg/dL (70-99) Test 11/03/20 07:46 11/03/20 11:44 11/03/20 11:50 Glucose (Fingerstick) 227 mg/dL (70-99) 164 mg/dL (70-99) Sodium Level 140 mmol/L (136-145) Potassium Level 5.6 mmol/L (3.5-5.1) Chloride Level 107 mmol/L (98-107) Carbon Dioxide Level 24 mmol/L (21-32) Anion Gap 9 (6-14) Blood Urea Nitrogen 55 mg/dL (8-26) Creatinine 2.2 mg/dL (0.7-1.3) Estimated GFR (Cockcroft-Gault) 37.7 Glucose Level 111 mg/dL (70-99) Calcium Level 9.0 mg/dL (8.5-10.1) Laboratory Tests Test 11/02/20 16:49 11/02/20 20:59 11/02/20 21:40 11/03/20 07:46 Glucose (Fingerstick) 213 mg/dL (70-99) 54 mg/dL (70-99) 103 mg/dL (70-99) 227 mg/dL (70-99) Test 11/03/20 11:44 11/03/20 11:50 Glucose (Fingerstick) 164 mg/dL (70-99) Sodium Level 140 mmol/L (136-145) Potassium Level 5.6 mmol/L (3.5-5.1) Chloride Level 107 mmol/L (98-107) Carbon Dioxide Level 24 mmol/L (21-32) Anion Gap 9 (6-14) Blood Urea Nitrogen 55 mg/dL (8-26) Creatinine 2.2 mg/dL (0.7-1.3) Estimated GFR (Cockcroft-Gault) 37.7 Glucose Level 111 mg/dL (70-99) Calcium Level 9.0 mg/dL (8.5-10.1) Microbiology 10/31/20 Gram Stain - Final, Resulted 10/31/20 Aerobic and Anaerobic Culture - Preliminary, Resulted 10/30/20 Urine Culture - Final, Complete Medications Current Medications Nitroglycerin (Nitro-Bid Oint) 1 inch 1X ONCE TP Last administered on 10/20/20at 13:22; Start 10/20/20 at 13:15; Stop 10/20/20 at 13:16; Status DC Morphine Sulfate (Morphine Sulfate) 4 mg 1X ONCE IV Last administered on 10/20/20at 13:23; Start 10/20/20 at 13:15; Stop 10/20/20 at 13:16; Status DC Furosemide (Lasix) 80 mg 1X ONCE IVP Last administered on 10/20/20at 16:25; Start 10/20/20 at 15:45; Stop 10/20/20 at 15:46; Status DC Hydralazine HCl (Apresoline Inj) 10 mg PRN Q20MIN PRN IVP ELEVATED BP, SEE COMMENTS Last administered on 10/20/20at 16:28; Start 10/20/20 at 15:30 Furosemide (Lasix) 80 mg [id number] PO Last administered on 10/23/20at 08:11; Start 10/21/20 at 09:00; Stop 10/24/20 at 15:14; Status DC Insulin Human Lispro (HumaLOG) 0-9 UNITS TIDWMEALS SQ Last administered on 11/03/20at 12:31; Start 10/20/20 at 17:00 Dextrose (Dextrose 50%-Water Syringe) 12.5 gm PRN Q15MIN PRN IV SEE COMMENTS; Start 10/20/20 at 15:45 Ondansetron HCl (Zofran) 4 mg PRN Q6HRS PRN IVP NAUSEA/VOMITING Last administered on 10/22/20at 11:57; Start 10/20/20 at 16:15 Al Hydroxide/Mg Hydroxide (Mylanta Plus Xs) 30 ml PRN Q3HRS PRN PO HEARTBURN / GAS; Start 10/20/20 at 16:15; Stop 10/31/20 at 12:38; Status DC Calcium Carbonate/ Glycine (Tums) 500 mg PRN Q3HRS PRN PO UPSET STOMACH; Start 10/20/20 at 16:15 Zolpidem Tartrate (Ambien) 5 mg PRN QHS PRN PO INSOMNIA, MAY REPEAT IN 1HR Last administered on 11/02/20at 21:45; Start 10/20/20 at 16:15 Acetaminophen (Tylenol) 650 mg PRN Q6HRS PRN PO Headaches, Temp > 101.5F Last administered on 10/25/20at 14:19; Start 10/20/20 at 16:15 Magnesium Hydroxide (Milk Of Magnesia) 2,400 mg PRN Q12HR PRN PO CONSTIPATION (1ST CHOICE) Last administered on 10/22/20at 06:11; Start 10/20/20 at 16:15; Stop 10/31/20 at 12:37; Status DC Bisacodyl (Dulcolax Supp) 10 mg PRN DAILY PRN MT CONSTIPATION; Start 10/20/20 at 16:15 Heparin Sodium (Porcine) (Heparin Sodium) 5,000 unit Q8HRS SQ Last administered on 10/29/20at 05:59; Start 10/20/20 at 16:30; Stop 10/29/20 at 07:14; Status DC Morphine Sulfate (Morphine Sulfate) 4 mg PRN Q2HR PRN IV MODERATE TO SEVERE PAIN Last administered on 11/02/20at 16:24; Start 10/20/20 at 16:30 Tramadol HCl (Ultram) 50 mg PRN Q6HRS PRN PO MILD TO MODERATE PAIN Last administered on 10/24/20at 08:25; Start 10/20/20 at 16:30; Stop 10/30/20 at 20:36; Status DC Amlodipine Besylate (Norvasc) 10 mg DAILY PO Last administered on 11/03/20at 08:48; Start 10/21/20 at 09:00 Aspirin (Aspirin Chewable) 81 mg DAILYWBKFT PO Last administered on 11/03/20at 08:46; Start 10/21/20 at 08:00 Clopidogrel Bisulfate (Plavix) 75 mg DAILY PO Last administered on 11/03/20 08:47; Start 10/21/20 at 09:00 Furosemide (Lasix) 80 mg BID92 PO Last administered on 10/21/20at 08:54; Start 10/20/20 at 17:30; Stop 10/21/20 at 09:37; Status DC Pantoprazole Sodium (Protonix) 40 mg BIDAC PO Last administered on 11/03/20at 08:47; Start 10/20/20 at 17:30 Senna/Docusate Sodium (Senna Plus) 2 tab PRN QEVNG PRN PO CONSTIPATION; Start 10/20/20 at 17:30 Spironolactone (Aldactone) 25 mg DAILY PO Last administered on 10/21/20at 08:52; Start 10/21/20 at 09:00; Stop 10/21/20 at 14:06; Status DC Tamsulosin HCl (Flomax) 0.4 mg DAILY PO Last administered on 11/03/20 08:48; Start 10/21/20 at 09:00 Carvedilol (Coreg) 25 mg BIDWMEALS PO Last administered on 11/03/20 08:48; Start 10/20/20 at 17:30 Gabapentin (Neurontin) 300 mg TID PO Last administered on 11/03/20 08:48; Start 10/20/20 at 21:00 Hydralazine HCl (Apresoline) 100 mg TID PO Last administered on 11/03/20 08:4 7; Start 10/20/20 at 21:00 Insulin Human Lispro (HumaLOG) 30 units TIDWMEALS SQ Last administered on 11/03/20 12:30; Start 10/21/20 at 08:00 Insulin Glargine (Lantus Syringe) 60 unit QHS SQ Last administered on 10/22/20 21:17; Start 10/20/20 at 21:00; Stop 10/23/20 at 13:07; Status DC Isosorbide Dinitrate (Isordil) 5 mg TID PO Last administered on 11/03/20 08:47; Start 10/20/20 at 21:00 Atorvastatin Calcium (Lipitor) 80 mg QHS PO Last administered on 10/24/20 21:42; Start 10/20/20 at 21:00; Stop 10/25/20 at 13:42; Status DC Lorazepam (Ativan Inj) 1 mg PRN Q4HRS PRN IVP ANXIETY / AGITATION Last administered on 10/22/20 11:57; Start 10/20/20 at 17:30 Insulin Glargine (Lantus Syringe) 70 unit QHS SQ Last administered on 11/01/20 22:15; Start 10/23/20 at 21:00 Lidocaine (Lidoderm) 2 patch DAILY TD Last administered on 11/03/20 08:46; Start 10/24/20 at 09:00 Miscellaneous (Lidoderm Patch Removal) 1 ea QHS MC Last administered on 11/01/20 20:28; Start 10/24/20 at 21:00 Polysaccharide Iron Complex (Niferex 150) 150 mg DAILY PO Last administered on 11/03/20at 08:47; Start 10/24/20 at 14:00 Sodium Chloride 1,000 ml @ 75 mls/hr [id number] ONCE IV ; Start 10/25/20 at 11:15; Stop 10/25/20 at 13:42; Status DC Sodium Chloride 1,000 ml @ 75 mls/hr [id number] IV Last administered on 10/28/20at 20:48; Start 10/25/20 at 14:00; Stop 10/30/20 at 13:30; Status DC Duloxetine HCl (Cymbalta) 30 mg DAILY PO Last administered on 10/27/20at 08:03; Start 10/25/20 at 15:00; Stop 10/27/20 at 13:33; Status DC Lactulose (Lactulose) 20 gm 1X ONCE PO Last administered on 10/26/20at 12:47; Start 10/26/20 at 10:30; Stop 10/26/20 at 10:31; Status DC Lactulose (Lactulose) 20 gm 1X ONCE PO Last administered on 10/26/20at 12:47; Start 10/26/20 at 10:30; Stop 10/26/20 at 10:31; Status DC Duloxetine HCl (Cymbalta) 60 mg DAILY PO Last administered on 11/03/20at 08:46; Start 10/28/20 at 09:00 Furosemide (Lasix) 40 mg 1X ONCE IVP Last administered on 10/30/20at 12:37; Start 10/30/20 at 12:15; Stop 10/30/20 at 12:20; Status DC Morphine Sulfate (Morphine Sulfate) 4 mg 1X ONCE IM ; Start 10/30/20 at 20:45; Stop 10/30/20 at 20:46; Status Cancel Ceftriaxone Sodium (Rocephin) 1 gm Q24H IVP Last administered on 11/02/20at 21:34; Start 10/30/20 at 21:00 Furosemide (Lasix) 40 mg 1X ONCE IVP Last administered on 10/30/20at 21:00; Start 10/30/20 at 21:00; Stop 10/30/20 at 21:01; Status DC Morphine Sulfate (Morphine Sulfate) 4 mg 1X ONCE IV Last administered on 10/30/20at 22:00; Start 10/30/20 at 22:00; Stop 10/30/20 at 22:01; Status DC Fentanyl Citrate (Fentanyl 2ml Vial) 100 mcg STK-MED ONCE .ROUTE ; Start 10/31/20 at 12:18; Stop 10/31/20 at 12:19; Status DC Midazolam HCl (Versed) 2 mg STK-MED ONCE .ROUTE ; Start 10/31/20 at 12:18; Stop 10/31/20 at 12:19; Status DC Heparin Sodium/ Sodium Chloride 1,000 ml @ As Directed STK-MED ONCE .ROUTE ; Start 10/31/20 at 12:19; Stop 10/31/20 at 12:19; Status DC Lidocaine HCl (Lidocaine 1% 20ml Vial) 20 ml STK-MED ONCE .ROUTE ; Start 10/31/20 at 12:28; Stop 10/31/20 at 12:28; Status DC Heparin Sodium/ Sodium Chloride (HEPARIN for ARTERIAL LINE FLUSH) 1,000 unit 1X ONCE IART Last administered on 10/31/20at 13:35; Start 10/31/20 at 12:30; Stop 10/31/20 at 12:32; Status DC Heparin Sodium/ Sodium Chloride (HEPARIN for ARTERIAL LINE FLUSH) 1,000 unit 1X ONCE IART Last administered on 10/31/20at 13:35; Start 10/31/20 at 12:30; Stop 10/31/20 at 12:32; Status DC Midazolam HCl (Versed) 2 mg 1X ONCE IV Last administered on 10/31/20at 13:35; Start 10/31/20 at 12:30; Stop 10/31/20 at 12:32; Status DC Fentanyl Citrate (Fentanyl 2ml Vial) 100 mcg 1X ONCE IV Last administered on 10/31/20at 13:35; Start 10/31/20 at 12:30; Stop 10/31/20 at 12:32; Status DC Lidocaine HCl (Lidocaine 1% 20ml Vial) 20 ml 1X ONCE INJ Last administered on 10/31/20 13:34; Start 10/31/20 at 12:30; Stop 10/31/20 at 12:32; Status DC Acetaminophen/ Hydrocodone Bitart (Lortab 5/325) 1 tab PRN Q6HRS PRN PO PAIN Last administered on 11/03/20at 08:46; Start 10/31/20 at 12:30 Furosemide (Lasix) 100 mg STK-MED ONCE .ROUTE ; Start 10/31/20 at 13:19; Stop 10/31/20 at 13:19; Status DC Furosemide (Lasix) 80 mg 1X ONCE IVP Last administered on 10/31/20at 13:36; Start 10/31/20 at 13:30; Stop 10/31/20 at 13:31; Status DC Lidocaine HCl (Glydo (Lidocaine) Jelly) 1 nathalie 1X ONCE MM ; Start 11/01/20 at 02:30; Stop 11/01/20 at 02:31; Status DC Metolazone (Zaroxolyn) 2.5 mg DAILY PO Last administered on 11/03/20at 08:47; Start 11/02/20 at 14:00 Atorvastatin Calcium (Lipitor) 20 mg QHS PO Last administered on 11/02/20at 21:44; Start 11/02/20 at 21:00 Furosemide (Lasix) 100 mg 1X ONCE IVP ; Start 11/03/20 at 13:15; Stop 11/03/20 at 13:18; Status DC Active Scripts Active Flomax (Tamsulosin Hcl) 0.4 Mg Cap.er.24h 0.4 Mg PO DAILY Children's Aspirin (Aspirin) 81 Mg Tab.chew 81 Mg PO DAILYWBKFT Reported Senna-Docusate Sodium Tablet (Sennosides/Docusate Sodium) 1 Each Tablet 2 Tab PO PRN QEVNG PRN 5 Days Spironolactone 25 Mg Tablet 25 Mg PO DAILY Vitamin D2 (Ergocalciferol (Vitamin D2)) 1,250 Mcg Capsule 1,250 Mcg PO WEEKLY Lasix (Furosemide) 80 Mg Tablet 80 Mg PO BID Clopidogrel (Clopidogrel Bisulfate) 75 Mg Tablet 75 Mg PO DAILY Carvedilol 25 Mg Tablet 25 Mg PO BIDWMEALS Isosorbide Dinitrate 40 Mg Tablet.er 5 Mg PO TID Gabapentin 600 Mg Tablet 300 Mg PO TID Protonix (Pantoprazole Sodium) 40 Mg Tablet.dr 40 Mg PO BID Hydralazine Hcl 100 Mg Tablet 100 Mg PO TID Amlodipine Besylate 10 Mg Tablet 10 Mg PO DAILY Crestor (Rosuvastatin Calcium) 20 Mg Tablet 20 Mg PO QHS Levemir Flexpen (Insulin Detemir) 100 Unit/1 Ml Insuln.pen 60 Unit SQ HS Novolog Flexpen (Insulin Aspart) 100 Unit/1 Ml Insuln.pen 30 Unit SQ TIDAC Vitals/I & O Vital Sign - Last 24 Hours 11/02/20 11/02/20 11/02/20 11/02/20 14:22 16:17 16:18 16:24 Temp 97.6 97.6 Pulse 65 65 Resp 24 20 20 B/P (MAP) 136/51 (79) 136/51 Pulse Ox 96 96 96 O2 Delivery Nasal Cannula Nasal Cannula Nasal Cannula O2 Flow Rate 2.0 2.0 2.0 11/02/20 11/02/20 11/02/20 11/02/20 16:54 17:17 19:20 20:00 Temp 97.5 97.5 Pulse 65 Resp 22 B/P (MAP) 138/60 (86) Pulse Ox 96 96 96 96 O2 Delivery Nasal Cannula Nasal Cannula Nasal Cannula Nasal Cannula O2 Flow Rate 2.0 2.0 3.0 2.0 11/02/20 11/02/20 11/02/20 11/02/20 20:00 21:00 21:44 22:30 Pulse 68 62 B/P (MAP) 139/60 130/68 Pulse Ox 95 O2 Delivery Nasal Cannula BiPAP/CPAP O2 Flow Rate 3.0 11/02/20 11/03/20 11/03/20 11/03/20 22:49 03:21 06:59 08:47 Temp 97.7 98.0 97.9 97.7 98.0 97.9 Pulse 59 63 64 64 Resp 24 22 B/P (MAP) 140/60 (86) 146/60 (88) 153/44 (80) 153/44 Pulse Ox 99 100 94 O2 Delivery Nasal Cannula Nasal Cannula Nasal Cannula O2 Flow Rate 2.0 2.0 2.0 11/03/20 11/03/20 11/03/20 11/03/20 08:47 08:48 08:48 10:41 Temp 98.0 98.0 Pulse 64 64 64 82 Resp 22 B/P (MAP) 153/44 153/44 153/44 189/74 (112) Pulse Ox 96 O2 Delivery Nasal Cannula O2 Flow Rate 2.0 Intake and Output 11/02/20 11/02/20 11/03/20 15:00 23:00 07:00 Intake Total 120 ml 180 ml 240 ml Output Total 700 ml 450 ml 350 ml Balance -580 ml -270 ml -110 ml Justicifation of Admission Dx: Justifications for Admission: Justification of Admission Dx: N/A LORRAINE GUNN MD Nov 03, 2020 13:32
--- NOTE | 2020-11-03 14:35 | CONS ---
DATE OF CONSULTATION: LOCATION: He is in room 261. ATTENDING PHYSICIAN: Dr. Motley. REASON FOR CONSULTATION: The patient was seen at the request of Dr. Mckee for rehab evaluation. HISTORY OF PRESENT ILLNESS: This is a 55-year-old male, right-handed with diabetes mellitus type 2, hypercholesterolemia, hypertension, pancreatitis, chronic kidney disease stage IV, admitted through the Emergency Room complaining of worsening shortness of breath for about 3 days prior to the hospitalization on 10/20/2020. He also reported intermittent chest pain and bilateral lower extremity swelling, gets worse with exertion. In the Emergency Room he was noted with a BNP of 3029. patient was placed on BiPAP, given IV morphine with improvement of his symptoms. He apparently has not taken his home medication on the day of admission. He also reports of tender lump, right breast for about 3 weeks and reports of family history of carcinoma of breast. The patient denied any fever. Sick contacts are known COVID 19 exposure. Since admission, he has been treated for above problems with tentative diagnosis of congestive heart failure exacerbation, hypertension. The patient also was treated for acute respiratory failure with hypoxia, aortic stenosis, pulmonary hypertension due to cocaine abuse, normocytic anemia requiring blood transfusion, hypertensive urgency, moderate mitral regurgitation malnutrition. He is being followed by [facility] for his chronic kidney disease and being considered for dialysis. The patient is also being evaluated for transfer to [facility]. The patient complains of pain from lower extremity edema. He denies any back pain. The patient has been getting up and walking to the bathroom using a roller walker by himself. Prior to the present hospitalization, he had been independent with mobility and self-care skills. Uses a cane on occasion. He had stairs for him to manage. The patient was also treated during this hospitalization for moderate penile edema. PHYSICAL EXAMINATION: On physical examination today revealed a middle-aged male. He is obese. He is alert, oriented to time, place, person and circumstance and follows commands appropriately. He is using oxygen by nasal cannula. The patient had generalized edema. The patient had overall 4+/5 grade muscle strength and deep tendon reflexes are absent at both knees and ankles and he had equal perception of touch and pinprick sensation bilaterally. He had pain free range of motion of all four extremity joints. He is independent with bed mobility and transfers and up standing. He can walk using a roller walker with a wide-based gait. He gets tired easily. His skin is intact at this time. ASSESSMENT: A middle-aged male with diabetes mellitus with peripheral neuropathy, also pulmonary hypertension with recent onset acute respiratory failure with hypoxia, acute diastolic heart failure in a setting of aortic stenosis, hypertension, moderate mitral regurgitation, anemia, chronic kidney disease stage IIIB being considered for dialysis, obesity. RECOMMENDATIONS: Agree with the plan for physical therapy and occupational therapy to try to postpone any transfer to rehab unit until his medical condition, especially his renal function and congestive heart failure, stabilizes. Dr. Mckee, I appreciate asking me to participate in the care of this interesting patient. I will be glad to follow him with you as needed for his rehabilitation. RYLEY ELLISON MD DR: GOLDIE/portia JOB#: [id number] / [id number]
[2020-11-03 14:36] VITALS: BP 99/42
--- NOTE | 2020-11-03 17:10 | PDOC ---
CARDIO Progress Notes Date and Time Date of Service 11/03/2020 Time of Evaluation 1650 Subjective Subjective: No Chest Pain, No shortness of breath, No Palpitations Vitals Vitals Vital Signs Date Time Temp Pulse Resp B/P (MAP) Pulse Ox O2 Delivery O2 Flow Rate FiO2 11/03/20 14:36 98.1 62 22 99/42 (61) 97 Nasal Cannula 2.0 98.1 Weight Weight [ ] Input and Output Intake and Output Intake and Output 11/03/20 07:00 Intake Total 540 ml Output Total 1500 ml Balance -960 ml Intake Oral 540 ml Output Urine Total 1500 ml # Voids 1 # Bowel Movements 2 Laboratory Labs Laboratory Tests Test 11/02/20 20:59 11/02/20 21:40 11/03/20 07:46 11/03/20 11:44 Glucose (Fingerstick) 54 mg/dL (70-99) 103 mg/dL (70-99) 227 mg/dL (70-99) 164 mg/dL (70-99) Test 11/03/20 11:50 11/03/20 15:56 Sodium Level 140 mmol/L (136-145) Potassium Level 5.6 mmol/L (3.5-5.1) Chloride Level 107 mmol/L (98-107) Carbon Dioxide Level 24 mmol/L (21-32) Anion Gap 9 (6-14) Blood Urea Nitrogen 55 mg/dL (8-26) Creatinine 2.2 mg/dL (0.7-1.3) Estimated GFR (Cockcroft-Gault) 37.7 Glucose Level 111 mg/dL (70-99) Calcium Level 9.0 mg/dL (8.5-10.1) Glucose (Fingerstick) 52 mg/dL (70-99) Microbiology Micro Microbiology 10/31/20 Gram Stain - Final, Resulted 10/31/20 Aerobic and Anaerobic Culture - Preliminary, Resulted 10/30/20 Urine Culture - Final, Complete Physical Exam HEENT: Neck Supple W Full Motion Chest: Symmetric LUNGS: Other (diminished bases) Heart: RRR (SR) Abdomen: Soft N/T, Other (obese ) Extremities: Other (2+ bilateral LE edema ) Neurology: alert, oriented, follow commands, other (drowsy ) Assessment Assessment 1. Acute on chronic diastolic heart failure. Continues to slowly improve. Echocardiogram with normal LV ejection fraction with moderate mitral regurgitation and moderate pulmonary hypertension. 2. S/P right heart catheterization. RA pressures 18/26/13, RV 67/6/17, PA 64/20/37, wedge 29/46/27, PA saturation 53%. Fabio cardiac output 5.55 L/min, cardiac index 2.35. Creatinine mildly improved today at 2.2 3. Chronic kidney disease. nephrology following 4. Hypertension. labile episodes 5. Prior history of peripheral arterial disease status post right femoropopliteal bypass for ischemic foot pain in 2016 6. Dyslipidemia 7. Substance abuse 8. Coronary artery disease with a prior history of moderate coronary atherosclerosis noted in the left circumflex system in 2017 at heart catheterization at . [facility] in 2019 without any significant ischemia with preserved LV function 9. Anemia: post transfusion 10. Nontraumatic mechanical fall: no syncope, no arrhythmias Recommendations 1. Lasix has been discontinued Start on zaroxylyn. UOP reviewed. Will defer fu rther diuretic therapy to nephrology 2. Continue secondary prevention measures. DAPT 3. OT/PT 4. Discussed with staff to do orthostatic readings. Justicifation of Admission Dx: Justifications for Admission: Justification of Admission Dx: N/A HAILEE ARSHAD APRN Nov 03, 2020 17:10
[2020-11-03 19:40] VITALS: BP 171/67
[2020-11-03] MEDS ORDERED: oxyCODONE IR 5 MG TABLET PO ONE (20:00)
[2020-11-03] MEDS: PATCH REMOVAL. MC SCH (21:00)
[2020-11-03] MEDS: ATORVASTATIN CALCIUM 20 MG TABLET PO SCH (21:05)
[2020-11-03] MEDS: cefTRIAXone IV Push 1 GM VIAL. IVP SCH (21:06)
[2020-11-03] MEDS: INSULIN GLARGINE SYRINGE. SQ SCH (21:12)
[2020-11-03 23:25] VITALS: BP 143/65
[2020-11-04 03:20] VITALS: BP 172/63
[2020-11-04 07:00] VITALS: BP 180/73
[2020-11-04] MEDS: INSULIN LISPRO 300 UNITS/3 ML VIAL. SQ SCH ×5 (08:00→17:00)
--- NOTE | 2020-11-04 08:50 | PDOC ---
PROGRESS NOTES Date of Service DATE: 11/04/20 TIME: 08:49 Assessment Problems Medical Problems: (1) Chest pain Status: Acute (2) CHF exacerbation Status: Acute (3) HTN (hypertension) Status: Acute (4) Person under investigation for COVID-19 Status: Acute Peripheral neuropathy, most likely from diabetes (hemoglobin A1c is 6.9), labs negative for other causes, exacerbated by acute metabolic issues including anemia and renal failure. Consider acute inflammatory demyelinating neuropathy, but this is unlikely, patient started getting weak at least a year ago. I find no evidence of central nervous system disease including myelopathy. Lab work so far is negative. He denies significant back pain Substance abuse, cocaine and urine drug screen drawn 9 days after admission Cardiac catheterization, 10/31, elevated biventricular filling pressures and cor pulmonale, planning on medical treatment Plan Rehabilitation modalities, needs inpatient rehab, insurance has denied Continue gabapentin and duloxetine. Follow-up with me for outpatient EMG studies Subjective Complains of pedal edema Objective Vital Signs Date Time Temp Pulse Resp B/P (MAP) Pulse Ox O2 Delivery O2 Flow Rate FiO2 11/04/20 07:46 94 Room Air 11/04/20 07:00 98.0 63 20 180/73 (108) 3.0 98.0 Intake and Output 11/04/20 07:00 Intake Total 990 ml Output Total 600 ml Balance 390 ml Intake Oral 990 ml Output Urine Total 600 ml PHYSICAL EXAM Alert. Oriented to time, place and person. PERRL. EOMI. CN: no focal findings. Muscle tone: normal. Muscle strength: 4/5 DTR: 0+ Plantar reflex: Flexor Gait: not examined in bed. Sensory exam: stocking loss. Review of Relevant I have reviewed the following items karissa (where applicable) has been applied. Labs Laboratory Tests Test 11/02/20 11:30 11/02/20 16:49 11/02/20 20:59 11/02/20 21:40 Glucose (Fingerstick) 138 mg/dL (70-99) 213 mg/dL (70-99) 54 mg/dL (70-99) 103 mg/dL (70-99) Test 11/03/20 07:46 11/03/20 11:44 11/03/20 11:50 11/03/20 15:56 Glucose (Fingerstick) 227 mg/dL (70-99) 164 mg/dL (70-99) 52 mg/dL (70-99) Sodium Level 140 mmol/L (136-145) Potassium Level 5.6 mmol/L (3.5-5.1) Chloride Level 107 mmol/L (98-107) Carbon Dioxide Level 24 mmol/L (21-32) Anion Gap 9 (6-14) Blood Urea Nitrogen 55 mg/dL (8-26) Creatinine 2.2 mg/dL (0.7-1.3) Estimated GFR (Cockcroft-Gault) 37.7 Glucose Level 111 mg/dL (70-99) Calcium Level 9.0 mg/dL (8.5-10.1) Test 11/03/20 20:53 11/04/20 08:11 Glucose (Fingerstick) 253 mg/dL (70-99) 98 mg/dL (70-99) Laboratory Tests Test 11/03/20 11:44 11/03/20 11:50 11/03/20 15:56 11/03/20 20:53 Glucose (Fingerstick) 164 mg/dL (70-99) 52 mg/dL (70-99) 253 mg/dL (70-99) Sodium Level 140 mmol/L (136-145) Potassium Level 5.6 mmol/L (3.5-5.1) Chloride Level 107 mmol/L (98-107) Carbon Dioxide Level 24 mmol/L (21-32) Anion Gap 9 (6-14) Blood Urea Nitrogen 55 mg/dL (8-26) Creatinine 2.2 mg/dL (0.7-1.3) Estimated GFR (Cockcroft-Gault) 37.7 Glucose Level 111 mg/dL (70-99) Calcium Level 9.0 mg/dL (8.5-10.1) Test 11/04/20 08:11 Glucose (Fingerstick) 98 mg/dL (70-99) Microbiology 10/31/20 Gram Stain - Final, Resulted 10/31/20 Aerobic and Anaerobic Culture - Preliminary, Resulted 10/30/20 Urine Culture - Final, Complete Medications Current Medications Nitroglycerin (Nitro-Bid Oint) 1 inch 1X ONCE TP Last administered on 10/20/20at 13:22; Start 10/20/20 at 13:15; Stop 10/20/20 at 13:16; Status DC Morphine Sulfate (Morphine Sulfate) 4 mg 1X ONCE IV Last administered on 10/20/20at 13:23; Start 10/20/20 at 13:15; Stop 10/20/20 at 13:16; Status DC Furosemide (Lasix) 80 mg 1X ONCE IVP Last administered on 10/20/20at 16:25; Start 10/20/20 at 15:45; Stop 10/20/20 at 15:46; Status DC Hydralazine HCl (Apresoline Inj) 10 mg PRN Q20MIN PRN IVP ELEVATED BP, SEE COMMENTS Last administered on 10/20/20 16:28; Start 10/20/20 at 15:30 Furosemide (Lasix) 80 mg [id number] PO Last administered on 10/23/20at 08:11; Start 10/21/20 at 09:00; Stop 10/24/20 at 15:14; Status DC Insulin Human Lispro (HumaLOG) 0-9 UNITS TIDWMEALS SQ Last administered on 11/03/20at 12:31; Start 10/20/20 at 17:00 Dextrose (Dextrose 50%-Water Syringe) 12.5 gm PRN Q15MIN PRN IV SEE COMMENTS; Start 10/20/20 at 15:45 Ondansetron HCl (Zofran) 4 mg PRN Q6HRS PRN IVP NAUSEA/VOMITING Last administered on 10/22/20at 11:57; Start 10/20/20 at 16:15 Al Hydroxide/Mg Hydroxide (Mylanta Plus Xs) 30 ml PRN Q3HRS PRN PO HEARTBURN / GAS; Start 10/20/20 at 16:15; Stop 10/31/20 at 12:38; Status DC Calcium Carbonate/ Glycine (Tums) 500 mg PRN Q3HRS PRN PO UPSET STOMACH; Start 10/20/20 at 16:15 Zolpidem Tartrate (Ambien) 5 mg PRN QHS PRN PO INSOMNIA, MAY REPEAT IN 1HR Last administered on 11/02/20at 21:45; Start 10/20/20 at 16:15 Acetaminophen (Tylenol) 650 mg PRN Q6HRS PRN PO Headaches, Temp > 101.5F Last administered on 10/25/20at 14:19; Start 10/20/20 at 16:15 Magnesium Hydroxide (Milk Of Magnesia) 2,400 mg PRN Q12HR PRN PO CONSTIPATION (1ST CHOICE) Last administered on 10/22/20 06:11; Start 10/20/20 at 16:15; Stop 10/31/20 at 12:37; Status DC Bisacodyl (Dulcolax Supp) 10 mg PRN DAILY PRN NE CONSTIPATION; Start 10/20/20 at 16:15 Heparin Sodium (Porcine) (Heparin Sodium) 5,000 unit Q8HRS SQ Last administered on 10/29/20at 05:59; Start 10/20/20 at 16:30; Stop 10/29/20 at 07:14; Status DC Morphine Sulfate (Morphine Sulfate) 4 mg PRN Q2HR PRN IV MODERATE TO SEVERE P AIN Last administered on 11/02/20at 16:24; Start 10/20/20 at 16:30 Tramadol HCl (Ultram) 50 mg PRN Q6HRS PRN PO MILD TO MODERATE PAIN Last administered on 10/24/20 08:25; Start 10/20/20 at 16:30; Stop 10/30/20 at 20:36; Status DC Amlodipine Besylate (Norvasc) 10 mg DAILY PO Last administered on 11/03/20 08:48; Start 10/21/20 at 09:00 Aspirin (Aspirin Chewable) 81 mg [id number] PO Last administered on 11/03/20at 08:46; Start 10/21/20 at 08:00 Clopidogrel Bisulfate (Plavix) 75 mg DAILY PO Last administered on 11/03/20 08:47; Start 10/21/20 at 09:00 Furosemide (Lasix) 80 mg BID92 PO Last administered on 10/21/20 08:54; Start 10/20/20 at 17:30; Stop 10/21/20 at 09:37; Status DC Pantoprazole Sodium (Protonix) 40 mg BIDAC PO Last administered on 11/03/20at 17:50; Start 10/20/20 at 17:30 Senna/Docusate Sodium (Senna Plus) 2 tab PRN QEVNG PRN PO CONSTIPATION; Start 10/20/20 at 17:30 Spironolactone (Aldactone) 25 mg DAILY PO Last administered on 10/21/20at 08:52; Start 10/21/20 at 09:00; Stop 10/21/20 at 14:06; Status DC Tamsulosin HCl (Flomax) 0.4 mg DAILY PO Last administered on 11/03/20 08:48; Start 10/21/20 at 09:00 Carvedilol (Coreg) 25 mg BIDWMEALS PO Last administered on 11/03/20 08:48; Start 10/20/20 at 17:30 Gabapentin (Neurontin) 300 mg TID PO Last administered on 11/03/20 21:05; Start 10/20/20 at 21:00 Hydralazine HCl (Apresoline) 100 mg TID PO Last administered on 11/03/20 21:04; Start 10/20/20 at 21:00 Insulin Human Lispro (HumaLOG) 30 units TIDWMEALS SQ Last administered on 11/03/20 12:30; Start 10/21/20 at 08:00 Insulin Glargine (Lantus Syringe) 60 unit QHS SQ Last administered on 10/22/20 21:17; Start 10/20/20 at 21:00; Stop 10/23/20 at 13:07; Status DC Isosorbide Dinitrate (Isordil) 5 mg TID PO Last administered on 11/03/20 21:05; Start 10/20/20 at 21:00 Atorvastatin Calcium (Lipitor) 80 mg QHS PO Last administered on 10/24/20 21:42; Start 10/20/20 at 21:00; Stop 10/25/20 at 13:42; Status DC Lorazepam (Ativan Inj) 1 mg PRN Q4HRS PRN IVP ANXIETY / AGITATION Last administered on 10/22/20 11:57; Start 10/20/20 at 17:30 Insulin Glargine (Lantus Syringe) 70 unit QHS SQ Last administered on 11/03/20 21:12; Start 10/23/20 at 21:00 Lidocaine (Lidoderm) 2 patch DAILY TD Last administered on 11/03/20 08:46; Start 10/24/20 at 09:00 Miscellaneous (Lidoderm Patch Removal) 1 ea QHS MC Last administered on 11/03/20 21:00; Start 10/24/20 at 21:00 Polysaccharide Iron Complex (Niferex 150) 150 mg DAILY PO Last administered on 11/03/20at 08:47; Start 10/24/20 at 14:00 Sodium Chloride 1,000 ml @ 75 mls/hr [id number] ONCE IV ; Start 10/25/20 at 11:15; Stop 10/25/20 at 13:42; Status DC Sodium Chloride 1,000 ml @ 75 mls/hr [id number] IV Last administered on 10/28/20at 20:48; Start 10/25/20 at 14:00; Stop 10/30/20 at 13:30; Status DC Duloxetine HCl (Cymbalta) 30 mg DAILY PO Last administered on 10/27/20at 08:03; Start 10/25/20 at 15:00; Stop 10/27/20 at 13:33; Status DC Lactulose (Lactulose) 20 gm 1X ONCE PO Last administered on 10/26/20at 12:47; Start 10/26/20 at 10:30; Stop 10/26/20 at 10:31; Status DC Lactulose (Lactulose) 20 gm 1X ONCE PO Last administered on 10/26/20at 12:47; Start 10/26/20 at 10:30; Stop 10/26/20 at 10:31; Status DC Duloxetine HCl (Cymbalta) 60 mg DAILY PO Last administered on 11/03/20at 08:46; Start 10/28/20 at 09:00 Furosemide (Lasix) 40 mg 1X ONCE IVP Last administered on 10/30/20at 12:37; Start 10/30/20 at 12:15; Stop 10/30/20 at 12:20; Status DC Morphine Sulfate (Morphine Sulfate) 4 mg 1X ONCE IM ; Start 10/30/20 at 20:45; Stop 10/30/20 at 20:46; Status Cancel Ceftriaxone Sodium (Rocephin) 1 gm Q24H IVP Last administered on 11/03/20at 21:06; Start 10/30/20 at 21:00 Furosemide (Lasix) 40 mg 1X ONCE IVP Last administered on 10/30/20at 21:00; Start 10/30/20 at 21:00; Stop 10/30/20 at 21:01; Status DC Morphine Sulfate (Morphine Sulfate) 4 mg 1X ONCE IV Last administered on 10/30/20at 22:00; Start 10/30/20 at 22:00; Stop 10/30/20 at 22:01; Status DC Fentanyl Citrate (Fentanyl 2ml Vial) 100 mcg STK-MED ONCE .ROUTE ; Start 10/31/20 at 12:18; Stop 10/31/20 at 12:19; Status DC Midazolam HCl (Versed) 2 mg STK-MED ONCE .ROUTE ; Start 10/31/20 at 12:18; Stop 10/31/20 at 12:19; Status DC Heparin Sodium/ Sodium Chloride 1,000 ml @ As Directed STK-MED ONCE .ROUTE ; Start 10/31/20 at 12:19; Stop 10/31/20 at 12:19; Status DC Lidocaine HCl (Lidocaine 1% 20ml Vial) 20 ml STK-MED ONCE .ROUTE ; Start 10/31/20 at 12:28; Stop 10/31/20 at 12:28; Status DC Heparin Sodium/ Sodium Chloride (HEPARIN for ARTERIAL LINE FLUSH) 1,000 unit 1X ONCE IART Last administered on 10/31/20at 13:35; Start 10/31/20 at 12:30; Stop 10/31/20 at 12:32; Status DC Heparin Sodium/ Sodium Chloride (HEPARIN for ARTERIAL LINE FLUSH) 1,000 unit 1X ONCE IART Last administered on 10/31/20at 13:35; Start 10/31/20 at 12:30; Stop 10/31/20 at 12:32; Status DC Midazolam HCl (Versed) 2 mg 1X ONCE IV Last administered on 10/31/20at 13:35; Start 10/31/20 at 12:30; Stop 10/31/20 at 12:32; Status DC Fentanyl Citrate (Fentanyl 2ml Vial) 100 mcg 1X ONCE IV Last administered on 10/31/20at 13:35; Start 10/31/20 at 12:30; Stop 10/31/20 at 12:32; Status DC Lidocaine HCl (Lidocaine 1% 20ml Vial) 20 ml 1X ONCE INJ Last administered on 10/31/20at 13:34; Start 10/31/20 at 12:30; Stop 10/31/20 at 12:32; Status DC Acetaminophen/ Hydrocodone Bitart (Lortab 5/325) 1 tab PRN Q6HRS PRN PO PAIN Last administered on 11/03/20at 17:50; Start 10/31/20 at 12:30 Furosemide (Lasix) 100 mg STK-MED ONCE .ROUTE ; Start 10/31/20 at 13:19; Stop 10/31/20 at 13:19; Status DC Furosemide (Lasix) 80 mg 1X ONCE IVP Last administered on 10/31/20at 13:36; Start 10/31/20 at 13:30; Stop 10/31/20 at 13:31; Status DC Lidocaine HCl (Glydo (Lidocaine) Jelly) 1 nathalie 1X ONCE MM ; Start 11/01/20 at 02:30; Stop 11/01/20 at 02:31; Status DC Metolazone (Zaroxolyn) 2.5 mg DAILY PO Last administered on 11/03/20at 08:47; Start 11/02/20 at 14:00 Atorvastatin Calcium (Lipitor) 20 mg QHS PO Last administered on 11/03/20at 21:05; Start 11/02/20 at 21:00 Furosemide (Lasix) 100 mg 1X ONCE IVP ; Start 11/03/20 at 13:15; Stop 11/03/20 at 13:18; Status DC Oxycodone HCl (Roxicodone) 10 mg 1X ONCE PO Last administered on 11/03/20at 20:49; Start 11/03/20 at 20:00; Stop 11/03/20 at 20:05; Status DC Furosemide (Lasix) 100 mg 1X ONCE IVP ; Start 11/04/20 at 09:00; Stop 11/04/20 at 09:01 Active Scripts Active Flomax (Tamsulosin Hcl) 0.4 Mg Cap.er.24h 0.4 Mg PO DAILY Children's Aspirin (Aspirin) 81 Mg Tab.chew 81 Mg PO [id number] Reported Senna-Docusate Sodium Tablet (Sennosides/Docusate Sodium) 1 Each Tablet 2 Tab PO PRN QEVNG PRN 5 Days Spironolactone 25 Mg Tablet 25 Mg PO DAILY Vitamin D2 (Ergocalciferol (Vitamin D2)) 1,250 Mcg Capsule 1,250 Mcg PO WEEKLY Lasix (Furosemide) 80 Mg Tablet 80 Mg PO BID Clopidogrel (Clopidogrel Bisulfate) 75 Mg Tablet 75 Mg PO DAILY Carvedilol 25 Mg Tablet 25 Mg PO BIDWMEALS Isosorbide Dinitrate 40 Mg Tablet.er 5 Mg PO TID Gabapentin 600 Mg Tablet 300 Mg PO TID Protonix (Pantoprazole Sodium) 40 Mg Tablet.dr 40 Mg PO BID Hydralazine Hcl 100 Mg Tablet 100 Mg PO TID Amlodipine Besylate 10 Mg Tablet 10 Mg PO DAILY Crestor (Rosuvastatin Calcium) 20 Mg Tablet 20 Mg PO QHS Levemir Flexpen (Insulin Detemir) 100 Unit/1 Ml Insuln.pen 60 Unit SQ HS Novolog Flexpen (Insulin Aspart) 100 Unit/1 Ml Insuln.pen 30 Unit SQ TIDAC Vitals/I & O Vital Sign - Last 24 Hours 11/03/20 11/03/20 11/03/20 11/03/20 10:41 14:31 14:31 14:36 Temp 98.0 98.1 98.0 98.1 Pulse 82 82 82 62 Resp 22 22 B/P (MAP) 189/74 (112) 189/74 189/74 99/42 (61) Pulse Ox 96 97 O2 Delivery Nasal Cannula Nasal Cannula O2 Flow Rate 2.0 2.0 11/03/20 11/03/20 11/03/20 11/03/20 17:00 19:00 19:28 19:40 Temp 97.9 97.9 Pulse 62 63 Resp 20 22 B/P (MAP) 99/42 171/67 (101) Pulse Ox 95 O2 Delivery Nasal Cannula Nasal Cannula Nasal Cannula O2 Flow Rate 2.0 2.0 3.0 11/03/20 11/03/20 11/03/20 11/03/20 20:49 21:04 21:05 22:03 Pulse 63 63 Resp 20 20 B/P (MAP) 171/67 171/67 O2 Delivery Ventilator 11/03/20 11/04/20 11/04/20 11/04/20 23:25 03:20 07:00 07:46 Temp 98.9 97.1 98.0 98.9 97.1 98.0 Pulse 58 59 63 Resp 20 20 20 B/P (MAP) 143/65 (91) 172/63 (99) 180/73 (108) Pulse Ox 91 97 96 94 O2 Delivery BiPAP/CPAP BiPAP/CPAP Nasal Cannula Room Air O2 Flow Rate 3.0 Intake and Output 11/03/20 11/03/20 11/04/20 15:00 23:00 07:00 Intake Total 600 ml 120 ml 270 ml Output Total 600 ml Balance 600 ml 120 ml -330 ml Justicifation of Admission Dx: Justifications for Admission: Justification of Admission Dx: N/A LORRAINE GUNN MD Nov 04, 2020 08:50
[2020-11-04] MEDS ORDERED: FUROSEMIDE 100 MG/10 ML VIAL. IVP ONE (09:00)
[2020-11-04] MEDS: ASPIRIN CHEWABLE 81 MG TABLET. PO SCH (09:18)
[2020-11-04] MEDS: amLODIPine BESYLATE 10 MG TABLET PO SCH (09:18)
[2020-11-04] MEDS: GABAPENTIN 300 MG CAPSULE. PO SCH ×3 (09:19→20:48)
[2020-11-04] MEDS: DULoxetine HCL 30 MG CAPSULE.DR PO SCH (09:19)
[2020-11-04] MEDS: ISOSORBIDE DINITRATE 10 MG TABLET. PO SCH ×3 (09:19→20:48)
[2020-11-04] MEDS: CARVEDILOL 12.5 MG TABLET. PO SCH ×2 (09:19→17:19)
[2020-11-04] MEDS: metOLazone 2.5 MG TABLET PO SCH (09:20)
[2020-11-04] MEDS: TAMSULOSIN 0.4 MG CAP.ER.24H. PO SCH (09:20)
[2020-11-04] MEDS: PANTOPRAZOLE 40 MG TABLET.DR. PO SCH ×2 (09:20→17:18)
[2020-11-04] MEDS: IRON POLYSACCHARIDE COMPLEX 150 MG CAPSULE PO SCH (09:20)
[2020-11-04] MEDS: CLOPIDOGREL BISULFATE 75 MG TABLET PO SCH (09:20)
--- NOTE | 2020-11-04 09:42 | PDOC ---
Date of Service: DATE: 11/04/20 TIME: 09:40 Subjective: Subjective: Eating and stooling. Still "wheezy." Objective: Vital Signs: Vital Signs Date Time Temp Pulse Resp B/P (MAP) Pulse Ox O2 Delivery O2 Flow Rate FiO2 11/04/20 09:20 63 180/73 11/04/20 07:46 94 Room Air 11/04/20 07:00 98.0 20 3.0 98.0 Labs: Laboratory Tests Test 11/03/20 11:44 11/03/20 11:50 11/03/20 15:56 11/03/20 20:53 Glucose (Fingerstick) 164 mg/dL 52 mg/dL 253 mg/dL Sodium Level 140 mmol/L Potassium Level 5.6 mmol/L Chloride Level 107 mmol/L Carbon Dioxide Level 24 mmol/L Anion Gap 9 Blood Urea Nitrogen 55 mg/dL Creatinine 2.2 mg/dL Estimated GFR (Cockcroft-Gault) 37.7 Glucose Level 111 mg/dL Calcium Level 9.0 mg/dL Test 11/04/20 08:11 Glucose (Fingerstick) 98 mg/dL PE: GEN: NAD, sitting up in bed LUNGS: diminished, NC HEART: RRR ABD: large, non-tender NEURO/PSYCH: A & O 3 A/P: CHF, CKD, substance abuse CORY, GERD COVID negative 10/20 -- Continue iron and PPI. Outpt scopes. Justicifation of Admission Dx: Justifications for Admission: Justification of Admission Dx: N/A CHRISTIANE SOLITARIO Nov 04, 2020 09:42
[2020-11-04 09:50] LABS: BASO % 0 % (0-3); EOS # 0.3 x10^3/uL (0.0-0.7); EOS % 5 % (0-3); HEMATOCRIT 26.5 % (39.0-53.0); HEMOGLOBIN 8.3 g/dL (13.0-17.5); LYMPH # 0.7 x10^3/uL (1.0-4.8); LYMPH % 13 % (24-48); MEAN CORPUSCULAR HEMOGLOBIN 28 pg (25-35); MEAN CORPUSCULAR HGB CONC 31 g/dL (31-37); MEAN CORPUSCULAR VOLUME 89 fL (79-100); MONO # 0.4 x10^3/uL (0.0-1.1); MONO % 7 % (0-9); NEUT # 4.1 x10^3/uL (1.8-7.7); NEUT % 76 % (31-73); PLATELET COUNT 285 x10^3/uL (140-400); RED BLOOD COUNT 2.97 x10^6/uL (4.30-5.70); RED CELL DISTRIBUTION WIDTH 15.1 % (11.5-14.5); WHITE BLOOD COUNT 5.4 x10^3/uL (4.0-11.0)
[2020-11-04 10:05] LABS: CALCIUM 8.9 mg/dL (8.5-10.1); MAGNESIUM 2.3 mg/dL (1.8-2.4)
[2020-11-04 10:10] LABS: POTASSIUM 5.3 mmol/L (3.5-5.1)
[2020-11-04 11:00] VITALS: BP 163/72
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
[2020-11-04] MEDS ORDERED: FUROSEMIDE 40 MG/4 ML VIAL. IVP ONE (12:00)
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
[2020-11-04] MEDS: LIDOCAINE (700MG/PATCH) PATCH. TD SCH (12:19)
[2020-11-04] MEDS: HYDROcodone/APAP 5/325MG 1 TAB TABLET PO PRN ×2 (12:26→18:55)
--- NOTE | 2020-11-04 12:36 | NUR ---
FSBS 165. Only gave 1/2 dose of insulin meal dose. Received 15 units with no sliding scale. C/o feet hurting. Feet are swollen and tender on palpation, Lortab po given. Encourge to keep legs elevated while at rest. Requesting breathing treatment. Spoke with Dr. Motley and received orders. Cont. monitor.
[2020-11-04] MEDS ORDERED: ALBUTEROL SULFATE 2.5 MG/3 ML NEBU. NEB PRN (13:00)
--- NOTE | 2020-11-04 14:07 | PDOC ---
PROGRESS NOTES Date of Service DATE: 11/04/20 TIME: 14:01 Subjective Subjective He c/o continued leg swelling and pain and difficulty with increased SOB. Objective Objective Vital Signs Date Time Temp Pulse Resp B/P (MAP) Pulse Ox O2 Delivery O2 Flow Rate FiO2 11/04/20 12:26 Room Air 11/04/20 11:00 97.7 69 20 163/72 (102) 97 3.0 97.7 Intake and Output 11/04/20 07:00 Intake Total 990 ml Output Total 600 ml Balance 390 ml Intake Oral 990 ml Output Urine Total 600 ml Physical Exam Physical Exam He is sitting in bedside chair and using oxygen by nasal canula and he continues with generalized edema,more so in his lower extremities and he did walk for 100' with roller walker with physical therapy under contact guard assistance. Assessment Assessment Problems Medical Problems: (1) Chest pain Status: Acute (2) CHF exacerbation Status: Acute (3) HTN (hypertension) Status: Acute (4) Person under investigation for COVID-19 Status: Acute Plan Plan of Care To continue present rehab efforts as tolerated. Comment Review of Relevant I have reviewed the following items karissa (where applicable) has been applied. Labs Laboratory Tests Test 11/02/20 16:49 11/02/20 20:59 11/02/20 21:40 11/03/20 07:46 Glucose (Fingerstick) 213 mg/dL (70-99) 54 mg/dL (70-99) 103 mg/dL (70-99) 227 mg/dL (70-99) Test 11/03/20 11:44 11/03/20 11:50 11/03/20 15:56 11/03/20 20:53 Glucose (Fingerstick) 164 mg/dL (70-99) 52 mg/dL (70-99) 253 mg/dL (70-99) Sodium Level 140 mmol/L (136-145) Potassium Level 5.6 mmol/L (3.5-5.1) Chloride Level 107 mmol/L (98-107) Carbon Dioxide Level 24 mmol/L (21-32) Anion Gap 9 (6-14) Blood Urea Nitrogen 55 mg/dL (8-26) Creatinine 2.2 mg/dL (0.7-1.3) Estimated GFR (Cockcroft-Gault) 37.7 Glucose Level 111 mg/dL (70-99) Calcium Level 9.0 mg/dL (8.5-10.1) Test 11/04/20 08:11 11/04/20 09:40 11/04/20 12:19 Glucose (Fingerstick) 98 mg/dL (70-99) 165 mg/dL (70-99) White Blood Count 5.4 x10^3/uL (4.0-11.0) Red Blood Count 2.97 x10^6/uL (4.30-5.70) Hemoglobin 8.3 g/dL (13.0-17.5) Hematocrit 26.5 % (39.0-53.0) Mean Corpuscular Volume 89 fL (79-100) Mean Corpuscular Hemoglobin 28 pg (25-35) Mean Corpuscular Hemoglobin Concent 31 g/dL (31-37) Red Cell Distribution Width 15.1 % (11.5-14.5) Platelet Count 285 x10^3/uL (140-400) Neutrophils (%) (Auto) 76 % (31-73) Lymphocytes (%) (Auto) 13 % (24-48) Monocytes (%) (Auto) 7 % (0-9) Eosinophils (%) (Auto) 5 % (0-3) Basophils (%) (Auto) 0 % (0-3) Neutrophils # (Auto) 4.1 x10^3/uL (1.8-7.7) Lymphocytes # (Auto) 0.7 x10^3/uL (1.0-4.8) Monocytes # (Auto) 0.4 x10^3/uL (0.0-1.1) Eosinophils # (Auto) 0.3 x10^3/uL (0.0-0.7) Basophils # (Auto) 0.0 x10^3/uL (0.0-0.2) Sodium Level 137 mmol/L (136-145) Potassium Level 5.3 mmol/L (3.5-5.1) Chloride Level 105 mmol/L (98-107) Carbon Dioxide Level 24 mmol/L (21-32) Anion Gap 8 (6-14) Blood Urea Nitrogen 46 mg/dL (8-26) Creatinine 2.0 mg/dL (0.7-1.3) Estimated GFR (Cockcroft-Gault) 42.0 Glucose Level 201 mg/dL (70-99) Calcium Level 8.9 mg/dL (8.5-10.1) Magnesium Level 2.3 mg/dL (1.8-2.4) Laboratory Tests Test 11/03/20 15:56 11/03/20 20:53 11/04/20 08:11 11/04/20 09:40 Glucose (Fingerstick) 52 mg/dL (70-99) 253 mg/dL (70-99) 98 mg/dL (70-99) White Blood Count 5.4 x10^3/uL (4.0-11.0) Red Blood Count 2.97 x10^6/uL (4.30-5.70) Hemoglobin 8.3 g/dL (13.0-17.5) Hematocrit 26.5 % (39.0-53.0) Mean Corpuscular Volume 89 fL (79-100) Mean Corpuscular Hemoglobin 28 pg (25-35) Mean Corpuscular Hemoglobin Concent 31 g/dL (31-37) Red Cell Distribution Width 15.1 % (11.5-14.5) Platelet Count 285 x10^3/uL (140-400) Neutrophils (%) (Auto) 76 % (31-73) Lymphocytes (%) (Auto) 13 % (24-48) Monocytes (%) (Auto) 7 % (0-9) Eosinophils (%) (Auto) 5 % (0-3) Basophils (%) (Auto) 0 % (0-3) Neutrophils # (Auto) 4.1 x10^3/uL (1.8-7.7) Lymphocytes # (Auto) 0.7 x10^3/uL (1.0-4.8) Monocytes # (Auto) 0.4 x10^3/uL (0.0-1.1) Eosinophils # (Auto) 0.3 x10^3/uL (0.0-0.7) Basophils # (Auto) 0.0 x10^3/uL (0.0-0.2) Sodium Level 137 mmol/L (136-145) Potassium Level 5.3 mmol/L (3.5-5.1) Chloride Level 105 mmol/L (98-107) Carbon Dioxide Level 24 mmol/L (21-32) Anion Gap 8 (6-14) Blood Urea Nitrogen 46 mg/dL (8-26) Creatinine 2.0 mg/dL (0.7-1.3) Estimated GFR (Cockcroft-Gault) 42.0 Glucose Level 201 mg/dL (70-99) Calcium Level 8.9 mg/dL (8.5-10.1) Magnesium Level 2.3 mg/dL (1.8-2.4) Test 11/04/20 12:19 Glucose (Fingerstick) 165 mg/dL (70-99) Microbiology 10/31/20 Gram Stain - Final, Resulted 10/31/20 Aerobic and Anaerobic Culture - Preliminary, Resulted 10/30/20 Urine Culture - Final, Complete Medications Current Medications Nitroglycerin (Nitro-Bid Oint) 1 inch 1X ONCE TP Last administered on 10/20/20at 13:22; Start 10/20/20 at 13:15; Stop 10/20/20 at 13:16; Status DC Morphine Sulfate (Morphine Sulfate) 4 mg 1X ONCE IV Last administered on 10/20/20at 13:23; Start 10/20/20 at 13:15; Stop 10/20/20 at 13:16; Status DC Furosemide (Lasix) 80 mg 1X ONCE IVP Last administered on 10/20/20at 16:25; Start 10/20/20 at 15:45; Stop 10/20/20 at 15:46; Status DC Hydralazine HCl (Apresoline Inj) 10 mg PRN Q20MIN PRN IVP ELEVATED BP, SEE COMMENTS Last administered on 10/20/20at 16:28; Start 10/20/20 at 15:30 Furosemide (Lasix) 80 mg [id number] PO Last administered on 10/23/20at 08:11; Start 10/21/20 at 09:00; Stop 10/24/20 at 15:14; Status DC Insulin Human Lispro (HumaLOG) 0-9 UNITS TIDWMEALS SQ Last administered on 11/03/20at 12:31; Start 10/20/20 at 17:00 Dextrose (Dextrose 50%-Water Syringe) 12.5 gm PRN Q15MIN PRN IV SEE COMMENTS; Start 10/20/20 at 15:45 Ondansetron HCl (Zofran) 4 mg PRN Q6HRS PRN IVP NAUSEA/VOMITING Last administered on 10/22/20 11:57; Start 10/20/20 at 16:15 Al Hydroxide/Mg Hydroxide (Mylanta Plus Xs) 30 ml PRN Q3HRS PRN PO HEARTBURN / GAS; Start 10/20/20 at 16:15; Stop 10/31/20 at 12:38; Status DC Calcium Carbonate/ Glycine (Tums) 500 mg PRN Q3HRS PRN PO UPSET STOMACH; Start 10/20/20 at 16:15 Zolpidem Tartrate (Ambien) 5 mg PRN QHS PRN PO INSOMNIA, MAY REPEAT IN 1HR Last administered on 11/02/20at 21:45; Start 10/20/20 at 16:15 Acetaminophen (Tylenol) 650 mg PRN Q6HRS PRN PO Headaches, Temp > 101.5F Last administered on 10/25/20at 14:19; Start 10/20/20 at 16:15 Magnesium Hydroxide (Milk Of Magnesia) 2,400 mg PRN Q12HR PRN PO CONSTIPATION (1ST CHOICE) Last administered on 10/22/20at 06:11; Start 10/20/20 at 16:15; Stop 10/31/20 at 12:37; Status DC Bisacodyl (Dulcolax Supp) 10 mg PRN DAILY PRN [place] CONSTIPATION; Start 10/20/20 at 16:15 Heparin Sodium (Porcine) (Heparin Sodium) 5,000 unit Q8HRS SQ Last administered on 10/29/20at 05:59; Start 10/20/20 at 16:30; Stop 10/29/20 at 07:14; Status DC Morphine Sulfate (Morphine Sulfate) 4 mg PRN Q2HR PRN IV MODERATE TO SEVERE PAIN Last administered on 11/02/20at 16:24; Start 10/20/20 at 16:30 Tramadol HCl (Ultram) 50 mg PRN Q6HRS PRN PO MILD TO MODERATE PAIN Last administered on 10/24/20at 08:25; Start 10/20/20 at 16:30; Stop 10/30/20 at 20:36; Status DC Amlodipine Besylate (Norvasc) 10 mg DAILY PO Last administered on 11/04/20at 09:18; Start 10/21/20 at 09:00 Aspirin (Aspirin Chewable) 81 mg DAILYWBKFT PO Last administered on 11/04/20 09:18; Start 10/21/20 at 08:00 Clopidogrel Bisulfate (Plavix) 75 mg DAILY PO Last administered on 11/04/20 09:20; Start 10/21/20 at 09:00 Furosemide (Lasix) 80 mg BID92 PO Last administered on 10/21/20at 08:54; Start 10/20/20 at 17:30; Stop 10/21/20 at 09:37; Status DC Pantoprazole Sodium (Protonix) 40 mg BIDAC PO Last administered on 11/04/20 09:20; Start 10/20/20 at 17:30 Senna/Docusate Sodium (Senna Plus) 2 tab PRN QEVNG PRN PO CONSTIPATION; Start 10/20/20 at 17:30 Spironolactone (Aldactone) 25 mg DAILY PO Last administered on 10/21/20at 08:52; Start 10/21/20 at 09:00; Stop 10/21/20 at 14:06; Status DC Tamsulosin HCl (Flomax) 0.4 mg DAILY PO Last administered on 11/04/20at 09:20; Start 10/21/20 at 09:00 Carvedilol (Coreg) 25 mg BIDWMEALS PO Last administered on 11/04/20 09:19; Start 10/20/20 at 17:30 Gabapentin (Neurontin) 300 mg TID PO Last administered on 11/04/20 09:19; Start 10/20/20 at 21:00 Hydralazine HCl (Apresoline) 100 mg TID PO Last administered on 11/04/20at 09:20; Start 10/20/20 at 21:00 Insulin Human Lispro (HumaLOG) 30 units TIDWMEALS SQ Last administered on 11/04/20at 12:00; Start 10/21/20 at 08:00 Insulin Glargine (Lantus Syringe) 60 unit QHS SQ Last administered on 10/22/20at 21:17; Start 10/20/20 at 21:00; Stop 10/23/20 at 13:07; Status DC Isosorbide Dinitrate (Isordil) 5 mg TID PO Last administered on 11/04/20 09:19; Start 10/20/20 at 21:00 Atorvastatin Calcium (Lipitor) 80 mg QHS PO Last administered on 10/24/20at 21:42; Start 10/20/20 at 21:00; Stop 10/25/20 at 13:42; Status DC Lorazepam (Ativan Inj) 1 mg PRN Q4HRS PRN IVP ANXIETY / AGITATION Last administered on 10/22/20at 11:57; Start 10/20/20 at 17:30 Insulin Glargine (Lantus Syringe) 70 unit QHS SQ Last administered on 11/03/20at 21:12; Start 10/23/20 at 21:00 Lidocaine (Lidoderm) 2 patch DAILY TD Last administered on 11/04/20at 12:19; Start 10/24/20 at 09:00 Miscellaneous (Lidoderm Patch Removal) 1 ea QHS MC Last administered on 11/03/20at 21:00; Start 10/24/20 at 21:00 Polysaccharide Iron Complex (Niferex 150) 150 mg DAILY PO Last administered on 11/04/20at 09:20; Start 10/24/20 at 14:00 Sodium Chloride 1,000 ml @ 75 mls/hr [id number] ONCE IV ; Start 10/25/20 at 11:15; Stop 10/25/20 at 13:42; Status DC Sodium Chloride 1,000 ml @ 75 mls/hr [id number] IV Last administered on 10/28/20at 20:48; Start 10/25/20 at 14:00; Stop 10/30/20 at 13:30; Status DC Duloxetine HCl (Cymbalta) 30 mg DAILY PO Last administered on 10/27/20at 08:03; Start 10/25/20 at 15:00; Stop 10/27/20 at 13:33; Status DC Lactulose (Lactulose) 20 gm 1X ONCE PO Last administered on 10/26/20at 12:47; Start 10/26/20 at 10:30; Stop 10/26/20 at 10:31; Status DC Lactulose (Lactulose) 20 gm 1X ONCE PO Last administered on 10/26/20at 12:47; Start 10/26/20 at 10:30; Stop 10/26/20 at 10:31; Status DC Duloxetine HCl (Cymbalta) 60 mg DAILY PO Last administered on 11/04/20at 09:19; Start 10/28/20 at 09:00 Furosemide (Lasix) 40 mg 1X ONCE IVP Last administered on 10/30/20at 12:37; Start 10/30/20 at 12:15; Stop 10/30/20 at 12:20; Status DC Morphine Sulfate (Morphine Sulfate) 4 mg 1X ONCE IM ; Start 10/30/20 at 20:45; Stop 10/30/20 at 20:46; Status Cancel Ceftriaxone Sodium (Rocephin) 1 gm Q24H IVP Last administered on 11/03/20at 21:06; Start 10/30/20 at 21:00 Furosemide (Lasix) 40 mg 1X ONCE IVP Last administered on 10/30/20at 21:00; Start 10/30/20 at 21:00; Stop 10/30/20 at 21:01; Status DC Morphine Sulfate (Morphine Sulfate) 4 mg 1X ONCE IV Last administered on 10/30/20at 22:00; Start 10/30/20 at 22:00; Stop 10/30/20 at 22:01; Status DC Fentanyl Citrate (Fentanyl 2ml Vial) 100 mcg STK-MED ONCE .ROUTE ; Start 10/31/20 at 12:18; Stop 10/31/20 at 12:19; Status DC Midazolam HCl (Versed) 2 mg STK-MED ONCE .ROUTE ; Start 10/31/20 at 12:18; Stop 10/31/20 at 12:19; Status DC Heparin Sodium/ Sodium Chloride 1,000 ml @ As Directed STK-MED ONCE .ROUTE ; Start 10/31/20 at 12:19; Stop 10/31/20 at 12:19; Status DC Lidocaine HCl (Lidocaine 1% 20ml Vial) 20 ml STK-MED ONCE .ROUTE ; Start 10/31/20 at 12:28; Stop 10/31/20 at 12:28; Status DC Heparin Sodium/ Sodium Chloride (HEPARIN for ARTERIAL LINE FLUSH) 1,000 unit 1X ONCE IART Last administered on 10/31/20at 13:35; Start 10/31/20 at 12:30; Stop 10/31/20 at 12:32; Status DC Heparin Sodium/ Sodium Chloride (HEPARIN for ARTERIAL LINE FLUSH) 1,000 unit 1X ONCE IART Last administered on 10/31/20at 13:35; Start 10/31/20 at 12:30; Stop 10/31/20 at 12:32; Status DC Midazolam HCl (Versed) 2 mg 1X ONCE IV Last administered on 10/31/20at 13:35; Start 10/31/20 at 12:30; Stop 10/31/20 at 12:32; Status DC Fentanyl Citrate (Fentanyl 2ml Vial) 100 mcg 1X ONCE IV Last administered on 10/31/20at 13:35; Start 10/31/20 at 12:30; Stop 10/31/20 at 12:32; Status DC Lidocaine HCl (Lidocaine 1% 20ml Vial) 20 ml 1X ONCE INJ Last administered on 10/31/20at 13:34; Start 10/31/20 at 12:30; Stop 10/31/20 at 12:32; Status DC Acetaminophen/ Hydrocodone Bitart (Lortab 5/325) 1 tab PRN Q6HRS PRN PO PAIN Last administered on 11/04/20at 12:26; Start 10/31/20 at 12:30 Furosemide (Lasix) 100 mg STK-MED ONCE .ROUTE ; Start 10/31/20 at 13:19; Stop 10/31/20 at 13:19; Status DC Furosemide (Lasix) 80 mg 1X ONCE IVP Last administered on 10/31/20at 13:36; Start 10/31/20 at 13:30; Stop 10/31/20 at 13:31; Status DC Lidocaine HCl (Glydo (Lidocaine) Jelly) 1 nathalie 1X ONCE MM ; Start 11/01/20 at 02:30; Stop 11/01/20 at 02:31; Status DC Metolazone (Zaroxolyn) 2.5 mg DAILY PO Last administered on 11/04/20at 09:20; Start 11/02/20 at 14:00 Atorvastatin Calcium (Lipitor) 20 mg QHS PO Last administered on 11/03/20at 21:05; Start 11/02/20 at 21:00 Furosemide (Lasix) 100 mg 1X ONCE IVP ; Start 11/03/20 at 13:15; Stop 11/03/20 at 13:18; Status DC Oxycodone HCl (Roxicodone) 10 mg 1X ONCE PO Last administered on 11/03/20at 20:49; Start 11/03/20 at 20:00; Stop 11/03/20 at 20:05; Status DC Furosemide (Lasix) 100 mg 1X ONCE IVP ; Start 11/04/20 at 09:00; Stop 11/04/20 at 09:01; Status DC Furosemide (Lasix) 40 mg 1X ONCE IVP Last administered on 11/04/20at 12:13; Start 11/04/20 at 12:00; Stop 11/04/20 at 12:01; Status DC Albuterol Sulfate (Ventolin Neb Soln) 2.5 mg PRN Q6HRS PRN NEB SHORTNESS OF BREATH; Start 11/04/20 at 13:00 Active Scripts Active Flomax (Tamsulosin Hcl) 0.4 Mg Cap.er.24h 0.4 Mg PO DAILY Children's Aspirin (Aspirin) 81 Mg Tab.chew 81 Mg PO DAILYWBKFT Reported Senna-Docusate Sodium Tablet (Sennosides/Docusate Sodium) 1 Each Tablet 2 Tab PO PRN QEVNG PRN 5 Days Spironolactone 25 Mg Tablet 25 Mg PO DAILY Vitamin D2 (Ergocalciferol (Vitamin D2)) 1,250 Mcg Capsule 1,250 Mcg PO WEEKLY Lasix (Furosemide) 80 Mg Tablet 80 Mg PO BID Clopidogrel (Clopidogrel Bisulfate) 75 Mg Tablet 75 Mg PO DAILY Carvedilol 25 Mg Tablet 25 Mg PO BIDWMEALS Isosorbide Dinitrate 40 Mg Tablet.er 5 Mg PO TID Gabapentin 600 Mg Tablet 300 Mg PO TID Protonix (Pantoprazole Sodium) 40 Mg Tablet.dr 40 Mg PO BID Hydralazine Hcl 100 Mg Tablet 100 Mg PO TID Amlodipine Besylate 10 Mg Tablet 10 Mg PO DAILY Crestor (Rosuvastatin Calcium) 20 Mg Tablet 20 Mg PO QHS Levemir Flexpen (Insulin Detemir) 100 Unit/1 Ml Insuln.pen 60 Unit SQ HS Novolog Flexpen (Insulin Aspart) 100 Unit/1 Ml Insuln.pen 30 Unit SQ TIDAC Vitals/I & O Vital Sign - Last 24 Hours 11/03/20 11/03/20 11/03/20 11/03/20 14:31 14:31 14:36 17:00 Temp 98.1 98.1 Pulse 82 82 62 62 Resp 22 B/P (MAP) 189/74 189/74 99/42 (61) 99/42 Pulse Ox 97 O2 Delivery Nasal Cannula O2 Flow Rate 2.0 11/03/20 11/03/20 11/03/20 11/03/20 19:00 19:28 19:40 20:49 Temp 97.9 97.9 Pulse 63 Resp 20 22 20 B/P (MAP) 171/67 (101) Pulse Ox 95 O2 Delivery Nasal Cannula Nasal Cannula Nasal Cannula Ventilator O2 Flow Rate 2.0 2.0 3.0 11/03/20 11/03/20 11/03/20 11/03/20 21:04 21:05 22:03 23:25 Temp 98.9 98.9 Pulse 63 63 58 Resp 20 20 B/P (MAP) 171/67 171/67 143/65 (91) Pulse Ox 91 O2 Delivery BiPAP/CPAP 11/04/20 11/04/20 11/04/20 11/04/20 03:20 07:00 07:46 08:00 Temp 97.1 98.0 97.1 98.0 Pulse 59 63 Resp 20 20 B/P (MAP) 172/63 (99) 180/73 (108) Pulse Ox 97 96 94 O2 Delivery BiPAP/CPAP Nasal Cannula Room Air Nasal Cannula O2 Flow Rate 3.0 3.0 11/04/20 11/04/20 11/04/20 11/04/20 09:18 09:19 09:19 09:20 Pulse 63 63 63 63 B/P (MAP) 180/73 180/73 180/73 180/73 11/04/20 11/04/20 11:00 12:26 Temp 97.7 97.7 Pulse 69 Resp 20 B/P (MAP) 163/72 (102) Pulse Ox 97 O2 Delivery Nasal Cannula Room Air O2 Flow Rate 3.0 Intake and Output 11/03/20 11/03/20 11/04/20 15:00 23:00 07:00 Intake Total 600 ml 120 ml 270 ml Output Total 600 ml Balance 600 ml 120 ml -330 ml Justifications for Admission Other Justification Acute respiratory failure with hypoxia, acute diastolic CHF exacerbation, right breast mass RYLEY ELLISON MD Nov 04, 2020 14:07
--- NOTE | 2020-11-04 14:55 | PDOC ---
[facility] PROGRESS NOTE Date of Service DOS: DATE: 11/04/20 TIME: 14:35 Chief Complaint Chief Complaint impression Acute respiratory failure with hypoxia Acute diastolic heart failure (CHF) aortic stenosis Elevated brain natriuretic peptide (BNP) level Pulmonary HTN , severe due to cocaine abuse CKD Normocytic anemia Hypertensive urgency moderate mitral regurgitation. Right breast mass Malnutrition normocytic anemia CKD stage 3 B- Seen by RECREATIONAL COUNSELOR renal . Cr was at his baseline at Presentation to [facility] Peripheral neuropathy, most likely from diabetes exacerbated by acute metabolic issues including anemia and renal failure. Consider acute inflammatory demyelinating neuropathy, 2-11 remains SOA, using bipap at hs poor prognosis due to cocaine abuse 2-12 possibility of visiting with the Pulmonary Hypertension Clinic at [facility]. HE HAS NOT FOLLOWED UP, may benefit from hospice if remains noncompliant and continues cocaine usage 2-13 transfused today will consult GI ? EGD, AM LABS, IV PROTONIX 2-14 pos urine drug screen for cocaine ,, ct penis, cardiac cath in am mod penile edema 28 MIN pt exam, chart review, > 50% of time spent with exam, chart review, pt care coordination History of Present Illness History of Present Illness 11/04: Patient seen and evaluated. Afebrile. Patient positive for cocaine and PCP in hospital. Will he does admit to doing cocaine prior to admission he still denies using cocaine while in the hospital. Patient's cousin is in room who can verify his claims. Noncompliant with cardiac diet. Fluctuating blood sugars with some in low 50s. Will adjust insulin medication. Notes improvement in penile edema. Still complains of some dysuria. Possibly secondary to having Alvarez catheter and. Will obtain UA. Breathing treatments as needed. We will continue to diurese. Recommending acute rehab but if insurance does not cover, will need home health at minimum. Discussed with RN. 11/03 , discussed his urine drug screen from 10/29, where he tested positive to cocaine and PCP - he denies vehemently and stared me down in a weird way./ I discussed that guys who do cocaine dont usually live past age 56. He was mad and wanted me to "make him better" - I think his ability to improve is going to be limited 11-02 Patient seen and evaluated. Denies chest pain or shortness of breath. Net fluid balance continues to be negative. Creatinine continues to be stable around 2.4. Continue diuresis. Receiving Rocephin prophylactically for penile edema. 11-01 Patient seen and evaluated. Denies chest pain. He had left heart cath yesterday showing elevated biventricular filling pressures, moderate pulmonary pretension due to diastolic dysfunction, cor pulmonale. He was recommended to continue aggressive diuresis and monitor renal function. Discussed weight loss and treatment of ROXANNE. 10-31 Seen and evaluated. Still c/o intemittent chesty pain. CT penis yesterday showed soft tissue edema involving the penis scrotum, thought to be related to volume overload given diffuse soft tissue anasarca. LHC today. Discussed with RN. 10-30 CATH IN AM,, moderate penile edema, perhaps related to ascites, will o btain ct penis and scrotum 10-29 remains anemic after one unit, consulted GI , NPO possible PUD , CT ABD, PELVIS 10-28 cr 2.5, transfused, D/W RN, AM CBC 10-27 remains SOA, using cpap at hs poor prognosis due to cocaine abuse, abg today 210 Peripheral neuropathy, most likely from diabetes rule out other causes, exacerbated by acute metabolic issues including anemia and renal failure. Consider acute inflammatory demyelinating neuropathy, D/W RN 10/25 - Pt is in moderate distress, states he is profoundly weak and is eager to get to the bottom on this problem. Discussed his continue compliance with cpap machine. Mr Moran is a 54yo M w/ PMHx Diabetes-Type II, High Cholesterol, Hypertension, Pancreatitis, CKD 4, presents to the ER with complaint of worsening shortness of breath of the past 3 days. He reports associated intermittent chest pain and bilateral lower extremity swelling. States his symptoms are worse with exertion. Upon arrival in the ED his BNP was 3029. He was placed on BiPAP given IV morphine with improvement of symptoms. States he has not taken any of his home medications today. He does report a tender lump in his right breast for the past 3 weeks, reports a family history of breast cancer. He denies any fever, sick contacts, or known COVID-19 exposure. Will admit patient for further medical management. 10/21: Patient seen and evaluated. Improved on BiPAP overnight. Afebrile, denies chest pain. Blood pressure better controlled. CBG 323 this morning. Of note patient did order two trays of nondiabetic meals, and had fried chicken delivered to his room last night. Discussed importance of cardiac and diabetic diet for his heart health. Continue to diurese with Lasix. Echocardiogram and ultrasound right breast pending. If appropriately diuresed and no concerning findings on right breast ultrasound, Vitals/I&O Vitals/I&O: Vital Signs Date Time Temp Pulse Resp B/P (MAP) Pulse Ox O2 Delivery O2 Flow Rate FiO2 11/04/20 12:26 Room Air 11/04/20 11:00 97.7 69 20 163/72 (102) 97 3.0 97.7 I & O 11/03/20 11/03/20 11/04/20 15:00 23:00 07:00 Intake Total 600 ml 120 ml 270 ml Output Total 600 ml Balance 600 ml 120 ml -330 ml Physical Exam General: No acute distress Heart: Regular rate Lungs: Wheezing, Crackles Abdomen: Normal bowel sounds Extremities: No cyanosis Skin: No breakdown, No significant lesion Labs Labs: Laboratory Tests Test 11/03/20 15:56 11/03/20 20:53 11/04/20 08:11 11/04/20 09:40 Glucose (Fingerstick) 52 mg/dL (70-99) 253 mg/dL (70-99) 98 mg/dL (70-99) White Blood Count 5.4 x10^3/uL (4.0-11.0) Red Blood Count 2.97 x10^6/uL (4.30-5.70) Hemoglobin 8.3 g/dL (13.0-17.5) Hematocrit 26.5 % (39.0-53.0) Mean Corpuscular Volume 89 fL (79-100) Mean Corpuscular Hemoglobin 28 pg (25-35) Mean Corpuscular Hemoglobin Concent 31 g/dL (31-37) Red Cell Distribution Width 15.1 % (11.5-14.5) Platelet Count 285 x10^3/uL (140-400) Neutrophils (%) (Auto) 76 % (31-73) Lymphocytes (%) (Auto) 13 % (24-48) Monocytes (%) (Auto) 7 % (0-9) Eosinophils (%) (Auto) 5 % (0-3) Basophils (%) (Auto) 0 % (0-3) Neutrophils # (Auto) 4.1 x10^3/uL (1.8-7.7) Lymphocytes # (Auto) 0.7 x10^3/uL (1.0-4.8) Monocytes # (Auto) 0.4 x10^3/uL (0.0-1.1) Eosinophils # (Auto) 0.3 x10^3/uL (0.0-0.7) Basophils # (Auto) 0.0 x10^3/uL (0.0-0.2) Sodium Level 137 mmol/L (136-145) Potassium Level 5.3 mmol/L (3.5-5.1) Chloride Level 105 mmol/L (98-107) Carbon Dioxide Level 24 mmol/L (21-32) Anion Gap 8 (6-14) Blood Urea Nitrogen 46 mg/dL (8-26) Creatinine 2.0 mg/dL (0.7-1.3) Estimated GFR (Cockcroft-Gault) 42.0 Glucose Level 201 mg/dL (70-99) Calcium Level 8.9 mg/dL (8.5-10.1) Magnesium Level 2.3 mg/dL (1.8-2.4) Test 11/04/20 12:19 Glucose (Fingerstick) 165 mg/dL (70-99) Assessment and Plan Assessmemt and Plan Problems Medical Problems: (1) Chest pain Status: Acute (2) CHF exacerbation Status: Acute (3) HTN (hypertension) Status: Acute (4) Person under investigation for COVID-19 Status: Acute Comment Review of Relevant I have reviewed the following items karissa (where applicable) has been applied. Medications: Current Medications Medications (Trade) Dose Ordered Sig/Kiera Route PRN Reason Start Time Stop Time Status Last Admin Dose Admin Oxycodone HCl (Roxicodone) 10 mg 1X ONCE PO 11/03/20 20:00 11/03/20 20:05 DC 11/03/20 20:49 Furosemide (Lasix) 40 mg 1X ONCE IVP 11/04/20 12:00 11/04/20 12:01 DC 11/04/20 12:13 Justifications for Admission Other Justification Acute respiratory failure with hypoxia, acute diastolic CHF exacerbation, right breast mass ASIA GLYNN MD Nov 04, 2020 14:55
[2020-11-04 15:00] VITALS: BP 142/46
[2020-11-04] MEDS ORDERED: DEXTROSE 50% 25 GM / 50ML DISP.SYRIN. IV PRN (15:15)
[2020-11-04 16:23] LABS: BILIRUBIN,URINE NEGATIVE (NEG); CLARITY,URINE CLEAR; COLOR,URINE YELLOW; NITRITE,URINE NEGATIVE (NEG); PROTEIN,URINE NEGATIVE (NEG-TRACE); UROBILINOGEN,URINE 0.2 mg/dL (0.2 mg/dL)
[2020-11-04 16:36] LABS: BACTERIA,URINE 0 /HPF (0-FEW); RBC,URINE OCC /HPF (0-2)
[2020-11-04 19:10] VITALS: BP 131/41
[2020-11-04] MEDS: ATORVASTATIN CALCIUM 20 MG TABLET PO SCH (20:47)
[2020-11-04] MEDS: PATCH REMOVAL. MC SCH (20:50)
[2020-11-04] MEDS: INSULIN GLARGINE SYRINGE. SQ SCH (21:07)
[2020-11-04 23:15] VITALS: BP 158/72
[2020-11-05 02:58] VITALS: BP 121/49
[2020-11-05 06:50] LABS: CALCIUM 8.5 mg/dL (8.5-10.1); CREATININE 2.2 mg/dL (0.7-1.3); GFR 37.7; POTASSIUM 5.5 mmol/L (3.5-5.1)
[2020-11-05 07:00] VITALS: BP 162/62
[2020-11-05] MEDS: PANTOPRAZOLE 40 MG TABLET.DR. PO SCH ×2 (08:17→16:52)
[2020-11-05] MEDS: metOLazone 2.5 MG TABLET PO SCH (08:17)
[2020-11-05] MEDS: DULoxetine HCL 30 MG CAPSULE.DR PO SCH (08:17)
[2020-11-05] MEDS: ASPIRIN CHEWABLE 81 MG TABLET. PO SCH (08:17)
[2020-11-05] MEDS: TAMSULOSIN 0.4 MG CAP.ER.24H. PO SCH (08:17)
[2020-11-05] MEDS: amLODIPine BESYLATE 10 MG TABLET PO SCH (08:18)
[2020-11-05] MEDS: CLOPIDOGREL BISULFATE 75 MG TABLET PO SCH (08:18)
[2020-11-05] MEDS: ISOSORBIDE DINITRATE 10 MG TABLET. PO SCH ×3 (08:18→21:35)
[2020-11-05] MEDS: IRON POLYSACCHARIDE COMPLEX 150 MG CAPSULE PO SCH (08:19)
[2020-11-05] MEDS: CARVEDILOL 12.5 MG TABLET. PO SCH ×2 (08:19→16:53)
[2020-11-05] MEDS: GABAPENTIN 300 MG CAPSULE. PO SCH ×3 (08:19→21:36)
[2020-11-05] MEDS: LIDOCAINE (700MG/PATCH) PATCH. TD SCH (08:20)
[2020-11-05] MEDS: HYDROcodone/APAP 5/325MG 1 TAB TABLET PO PRN ×2 (08:27→21:34)
[2020-11-05] MEDS: INSULIN LISPRO 300 UNITS/3 ML VIAL. SQ SCH ×3 (08:32→16:53)
--- NOTE | 2020-11-05 09:58 | PDOC ---
PROGRESS NOTES Date of Service DATE: 11/05/20 TIME: 09:56 Subjective Subjective No new complaints. Objective Objective Vital Signs Date Time Temp Pulse Resp B/P (MAP) Pulse Ox O2 Delivery O2 Flow Rate FiO2 11/05/20 08:19 65 11/05/20 07:00 97.6 22 162/62 (95) 96 Nasal Cannula 2.0 97.6 Intake and Output 11/05/20 07:00 Intake Total 1218 ml Output Total 2401 ml Balance -1183 ml Intake Oral 1218 ml Output Urine Total 2401 ml # Voids 1 Physical Exam Physical Exam He continues with generalized edema and SOB with exertion and he is walking with roller walker on level surface. Assessment Assessment Problems Medical Problems: (1) Chest pain Status: Acute (2) CHF exacerbation Status: Acute (3) HTN (hypertension) Status: Acute (4) Person under investigation for COVID-19 Status: Acute Plan Plan of Care To continue present rehab efforts as tolerated. Comment Review of Relevant I have reviewed the following items karissa (where applicable) has been applied. Labs Laboratory Tests Test 11/03/20 11:44 11/03/20 11:50 11/03/20 15:56 11/03/20 20:53 Glucose (Fingerstick) 164 mg/dL (70-99) 52 mg/dL (70-99) 253 mg/dL (70-99) Sodium Level 140 mmol/L (136-145) Potassium Level 5.6 mmol/L (3.5-5.1) Chloride Level 107 mmol/L (98-107) Carbon Dioxide Level 24 mmol/L (21-32) Anion Gap 9 (6-14) Blood Urea Nitrogen 55 mg/dL (8-26) Creatinine 2.2 mg/dL (0.7-1.3) Estimated GFR (Cockcroft-Gault) 37.7 Glucose Level 111 mg/dL (70-99) Calcium Level 9.0 mg/dL (8.5-10.1) Test 11/04/20 08:11 11/04/20 09:40 11/04/20 12:19 11/04/20 16:15 Glucose (Fingerstick) 98 mg/dL (70-99) 165 mg/dL (70-99) White Blood Count 5.4 x10^3/uL (4.0-11.0) Red Blood Count 2.97 x10^6/uL (4.30-5.70) Hemoglobin 8.3 g/dL (13.0-17.5) Hematocrit 26.5 % (39.0-53.0) Mean Corpuscular Volume 89 fL (79-100) Mean Corpuscular Hemoglobin 28 pg (25-35) Mean Corpuscular Hemoglobin Concent 31 g/dL (31-37) Red Cell Distribution Width 15.1 % (11.5-14.5) Platelet Count 285 x10^3/uL (140-400) Neutrophils (%) (Auto) 76 % (31-73) Lymphocytes (%) (Auto) 13 % (24-48) Monocytes (%) (Auto) 7 % (0-9) Eosinophils (%) (Auto) 5 % (0-3) Basophils (%) (Auto) 0 % (0-3) Neutrophils # (Auto) 4.1 x10^3/uL (1.8-7.7) Lymphocytes # (Auto) 0.7 x10^3/uL (1.0-4.8) Monocytes # (Auto) 0.4 x10^3/uL (0.0-1.1) Eosinophils # (Auto) 0.3 x10^3/uL (0.0-0.7) Basophils # (Auto) 0.0 x10^3/uL (0.0-0.2) Sodium Level 137 mmol/L (136-145) Potassium Level 5.3 mmol/L (3.5-5.1) Chloride Level 105 mmol/L (98-107) Carbon Dioxide Level 24 mmol/L (21-32) Anion Gap 8 (6-14) Blood Urea Nitrogen 46 mg/dL (8-26) Creatinine 2.0 mg/dL (0.7-1.3) Estimated GFR (Cockcroft-Gault) 42.0 Glucose Level 201 mg/dL (70-99) Calcium Level 8.9 mg/dL (8.5-10.1) Magnesium Level 2.3 mg/dL (1.8-2.4) Urine Collection Type Unknown Urine Color Yellow Urine Clarity Clear Urine pH 5.0 (<5.0-8.0) Urine Specific [place] 1.010 (1.000-1.030) Urine Protein Negative mg/dL (NEG-TRACE) Urine Glucose (UA) Negative mg/dL (NEG) Urine Ketones (Stick) Negative mg/dL (NEG) Urine Blood Negative (NEG) Urine Nitrite Negative (NEG) Urine Bilirubin Negative (NEG) Urine Urobilinogen Dipstick 0.2 mg/dL (0.2 mg/dL) Urine Leukocyte Esterase Negative (NEG) Urine RBC Occ /HPF (0-2) Urine WBC 1-4 /HPF (0-4) Urine Squamous Epithelial Cells Few /LPF Urine Bacteria 0 /HPF (0-FEW) Test 11/04/20 17:10 11/04/20 20:56 11/05/20 06:35 11/05/20 07:47 Glucose (Fingerstick) 72 mg/dL (70-99) 234 mg/dL (70-99) 170 mg/dL (70-99) Sodium Level 136 mmol/L (136-145) Potassium Level 5.5 mmol/L (3.5-5.1) Chloride Level 105 mmol/L (98-107) Carbon Dioxide Level 26 mmol/L (21-32) Anion Gap 5 (6-14) Blood Urea Nitrogen 50 mg/dL (8-26) Creatinine 2.2 mg/dL (0.7-1.3) Estimated GFR (Cockcroft-Gault) 37.7 Glucose Level 179 mg/dL (70-99) Calcium Level 8.5 mg/dL (8.5-10.1) Laboratory Tests Test 11/04/20 12:19 11/04/20 16:15 11/04/20 17:10 11/04/20 20:56 Glucose (Fingerstick) 165 mg/dL (70-99) 72 mg/dL (70-99) 234 mg/dL (70-99) Urine Collection Type Unknown Urine Color Yellow Urine Clarity Clear Urine pH 5.0 (<5.0-8.0) Urine Specific [place] 1.010 (1.000-1.030) Urine Protein Negative mg/dL (NEG-TRACE) Urine Glucose (UA) Negative mg/dL (NEG) Urine Ketones (Stick) Negative mg/dL (NEG) Urine Blood Negative (NEG) Urine Nitrite Negative (NEG) Urine Bilirubin Negative (NEG) Urine Urobilinogen Dipstick 0.2 mg/dL (0.2 mg/dL) Urine Leukocyte Esterase Negative (NEG) Urine RBC Occ /HPF (0-2) Urine WBC 1-4 /HPF (0-4) Urine Squamous Epithelial Cells Few /LPF Urine Bacteria 0 /HPF (0-FEW) Test 11/05/20 06:35 11/05/20 07:47 Sodium Level 136 mmol/L (136-145) Potassium Level 5.5 mmol/L (3.5-5.1) Chloride Level 105 mmol/L (98-107) Carbon Dioxide Level 26 mmol/L (21-32) Anion Gap 5 (6-14) Blood Urea Nitrogen 50 mg/dL (8-26) Creatinine 2.2 mg/dL (0.7-1.3) Estimated GFR (Cockcroft-Gault) 37.7 Glucose Level 179 mg/dL (70-99) Calcium Level 8.5 mg/dL (8.5-10.1) Glucose (Fingerstick) 170 mg/dL (70-99) Microbiology 10/31/20 Gram Stain - Final, Resulted 10/31/20 Aerobic and Anaerobic Culture - Preliminary, Resulted 10/30/20 Urine Culture - Final, Complete Medications Current Medications Nitroglycerin (Nitro-Bid Oint) 1 inch 1X ONCE TP Last administered on 10/20/20at 13:22; Start 10/20/20 at 13:15; Stop 10/20/20 at 13:16; Status DC Morphine Sulfate (Morphine Sulfate) 4 mg 1X ONCE IV Last administered on 10/20/20at 13:23; Start 10/20/20 at 13:15; Stop 10/20/20 at 13:16; Status DC Furosemide (Lasix) 80 mg 1X ONCE IVP Last administered on 10/20/20at 16:25; Start 10/20/20 at 15:45; Stop 10/20/20 at 15:46; Status DC Hydralazine HCl (Apresoline Inj) 10 mg PRN Q20MIN PRN IVP ELEVATED BP, SEE COMMENTS Last administered on 10/20/20at 16:28; Start 10/20/20 at 15:30 Furosemide (Lasix) 80 mg [id number] PO Last administered on 10/23/20at 08:11; Start 10/21/20 at 09:00; Stop 10/24/20 at 15:14; Status DC Insulin Human Lispro (HumaLOG) 0-9 UNITS TIDWMEALS SQ Last administered on 11/03/20at 12:31; Start 10/20/20 at 17:00; Stop 11/04/20 at 15:01; Status DC Dextrose (Dextrose 50%-Water Syringe) 12.5 gm PRN Q15MIN PRN IV SEE COMMENTS; Start 10/20/20 at 15:45 Ondansetron HCl (Zofran) 4 mg PRN Q6HRS PRN IVP NAUSEA/VOMITING Last administered on 10/22/20at 11:57; Start 10/20/20 at 16:15 Al Hydroxide/Mg Hydroxide (Mylanta Plus Xs) 30 ml PRN Q3HRS PRN PO HEARTBURN / GAS; Start 10/20/20 at 16:15; Stop 10/31/20 at 12:38; Status DC Calcium Carbonate/ Glycine (Tums) 500 mg PRN Q3HRS PRN PO UPSET STOMACH; Start 10/20/20 at 16:15 Zolpidem Tartrate (Ambien) 5 mg PRN QHS PRN PO INSOMNIA, MAY REPEAT IN 1HR Last administered on 11/02/20at 21:45; Start 10/20/20 at 16:15 Acetaminophen (Tylenol) 650 mg PRN Q6HRS PRN PO Headaches, Temp > 101.5F Last administered on 10/25/20at 14:19; Start 10/20/20 at 16:15 Magnesium Hydroxide (Milk Of Magnesia) 2,400 mg PRN Q12HR PRN PO CONSTIPATION (1ST CHOICE) Last administered on 10/22/20 06:11; Start 10/20/20 at 16:15; Stop 10/31/20 at 12:37; Status DC Bisacodyl (Dulcolax Supp) 10 mg PRN DAILY PRN LA CONSTIPATION; Start 10/20/20 at 16:15 Heparin Sodium (Porcine) (Heparin Sodium) 5,000 unit Q8HRS SQ Last administered on 10/29/20at 05:59; Start 10/20/20 at 16:30; Stop 10/29/20 at 07:14; Status DC Morphine Sulfate (Morphine Sulfate) 4 mg PRN Q2HR PRN IV MODERATE TO SEVERE PAIN Last administered on 11/02/20at 16:24; Start 10/20/20 at 16:30 Tramadol HCl (Ultram) 50 mg PRN Q6HRS PRN PO MILD TO MODERATE PAIN Last administered on 10/24/20 08:25; Start 10/20/20 at 16:30; Stop 10/30/20 at 20:36; Status DC Amlodipine Besylate (Norvasc) 10 mg DAILY PO Last administered on 11/05/20 08:18; Start 10/21/20 at 09:00 Aspirin (Aspirin Chewable) 81 mg DAILYWBKFT PO Last administered on 11/05/20 08:17; Start 10/21/20 at 08:00 Clopidogrel Bisulfate (Plavix) 75 mg DAILY PO Last administered on 11/05/20 08:18; Start 10/21/20 at 09:00 Furosemide (Lasix) 80 mg [id number] PO Last administered on 10/21/20 08:54; Start 10/20/20 at 17:30; Stop 10/21/20 at 09:37; Status DC Pantoprazole Sodium (Protonix) 40 mg BIDAC PO Last administered on 11/05/20 08:17; Start 10/20/20 at 17:30 Senna/Docusate Sodium (Senna Plus) 2 tab PRN QEVNG PRN PO CONSTIPATION; Start 10/20/20 at 17:30 Spironolactone (Aldactone) 25 mg DAILY PO Last administered on 10/21/20 08:52; Start 10/21/20 at 09:00; Stop 10/21/20 at 14:06; Status DC Tamsulosin HCl (Flomax) 0.4 mg DAILY PO Last administered on 11/05/20 08:17; Start 10/21/20 at 09:00 Carvedilol (Coreg) 25 mg BIDWMEALS PO Last administered on 11/05/20 08:19; Start 10/20/20 at 17:30 Gabapentin (Neurontin) 300 mg TID PO Last administered on 11/05/20 08:19; Start 10/20/20 at 21:00 Hydralazine HCl (Apresoline) 100 mg TID PO Last administered on 11/05/20 08:17; Start 10/20/20 at 21:00 Insulin Human Lispro (HumaLOG) 30 units TIDWMEALS SQ Last administered on 11/04/20at 12:00; Start 10/21/20 at 08:00; Stop 11/04/20 at 15:01; Status DC Insulin Glargine (Lantus Syringe) 60 unit QHS SQ Last administered on 10/22/20 21:17; Start 10/20/20 at 21:00; Stop 10/23/20 at 13:07; Status DC Isosorbide Dinitrate (Isordil) 5 mg TID PO Last administered on 11/05/20at 08:18; Start 10/20/20 at 21:00 Atorvastatin Calcium (Lipitor) 80 mg QHS PO Last administered on 10/24/20at 21:42; Start 10/20/20 at 21:00; Stop 10/25/20 at 13:42; Status DC Lorazepam (Ativan Inj) 1 mg PRN Q4HRS PRN IVP ANXIETY / AGITATION Last administered on 10/22/20at 11:57; Start 10/20/20 at 17:30 Insulin Glargine (Lantus Syringe) 70 unit QHS SQ Last administered on 11/03/20at 21:12; Start 10/23/20 at 21:00; Stop 11/04/20 at 15:01; Status DC Lidocaine (Lidoderm) 2 patch DAILY TD Last administered on 11/05/20at 08:20; Start 10/24/20 at 09:00 Miscellaneous (Lidoderm Patch Removal) 1 ea QHS MC Last administered on 11/04/20at 20:50; Start 10/24/20 at 21:00 Polysaccharide Iron Complex (Niferex 150) 150 mg DAILY PO Last administered on 11/05/20at 08:19; Start 10/24/20 at 14:00 Sodium Chloride 1,000 ml @ 75 mls/hr [id number] ONCE IV ; Start 10/25/20 at 11:15; Stop 10/25/20 at 13:42; Status DC Sodium Chloride 1,000 ml @ 75 mls/hr [id number] IV Last administered on 10/28/20at 20:48; Start 10/25/20 at 14:00; Stop 10/30/20 at 13:30; Status DC Duloxetine HCl (Cymbalta) 30 mg DAILY PO Last administered on 10/27/20at 08:03; Start 10/25/20 at 15:00; Stop 10/27/20 at 13:33; Status DC Lactulose (Lactulose) 20 gm 1X ONCE PO Last administered on 10/26/20at 12:47; Start 10/26/20 at 10:30; Stop 10/26/20 at 10:31; Status DC Lactulose (Lactulose) 20 gm 1X ONCE PO Last administered on 10/26/20at 12:47; Start 10/26/20 at 10:30; Stop 10/26/20 at 10:31; Status DC Duloxetine HCl (Cymbalta) 60 mg DAILY PO Last administered on 11/05/20at 08:17; Start 10/28/20 at 09:00 Furosemide (Lasix) 40 mg 1X ONCE IVP Last administered on 10/30/20at 12:37; Start 10/30/20 at 12:15; Stop 10/30/20 at 12:20; Status DC Morphine Sulfate (Morphine Sulfate) 4 mg 1X ONCE IM ; Start 10/30/20 at 20:45; Stop 10/30/20 at 20:46; Status Cancel Ceftriaxone Sodium (Rocephin) 1 gm Q24H IVP Last administered on 11/03/20at 21:06; Start 10/30/20 at 21:00; Stop 11/04/20 at 14:58; Status DC Furosemide (Lasix) 40 mg 1X ONCE IVP Last administered on 10/30/20at 21:00; Start 10/30/20 at 21:00; Stop 10/30/20 at 21:01; Status DC Morphine Sulfate (Morphine Sulfate) 4 mg 1X ONCE IV Last administered on 10/30/20at 22:00; Start 10/30/20 at 22:00; Stop 10/30/20 at 22:01; Status DC Fentanyl Citrate (Fentanyl 2ml Vial) 100 mcg STK-MED ONCE .ROUTE ; Start 10/31/20 at 12:18; Stop 10/31/20 at 12:19; Status DC Midazolam HCl (Versed) 2 mg STK-MED ONCE .ROUTE ; Start 10/31/20 at 12:18; Stop 10/31/20 at 12:19; Status DC Heparin Sodium/ Sodium Chloride 1,000 ml @ As Directed STK-MED ONCE .ROUTE ; Start 10/31/20 at 12:19; Stop 10/31/20 at 12:19; Status DC Lidocaine HCl (Lidocaine 1% 20ml Vial) 20 ml STK-MED ONCE .ROUTE ; Start 1 at 12:28; Stop 10/31/20 at 12:28; Status DC Heparin Sodium/ Sodium Chloride (HEPARIN for ARTERIAL LINE FLUSH) 1,000 unit 1X ONCE IART Last administered on 10/31/20at 13:35; Start 10/31/20 at 12:30; Stop 10/31/20 at 12:32; Status DC Heparin Sodium/ Sodium Chloride (HEPARIN for ARTERIAL LINE FLUSH) 1,000 unit 1X ONCE IART Last administered on 10/31/20at 13:35; Start 10/31/20 at 12:30; Stop 10/31/20 at 12:32; Status DC Midazolam HCl (Versed) 2 mg 1X ONCE IV Last administered on 10/31/20at 13:35; Start 10/31/20 at 12:30; Stop 10/31/20 at 12:32; Status DC Fentanyl Citrate (Fentanyl 2ml Vial) 100 mcg 1X ONCE IV Last administered on 10/31/20at 13:35; Start 10/31/20 at 12:30; Stop 10/31/20 at 12:32; Status DC Lidocaine HCl (Lidocaine 1% 20ml Vial) 20 ml 1X ONCE INJ Last administered on 10/31/20at 13:34; Start 10/31/20 at 12:30; Stop 10/31/20 at 12:32; Status DC Acetaminophen/ Hydrocodone Bitart (Lortab 5/325) 1 tab PRN Q6HRS PRN PO PAIN Last administered on 11/05/20at 08:27; Start 10/31/20 at 12:30 Furosemide (Lasix) 100 mg STK-MED ONCE .ROUTE ; Start 10/31/20 at 13:19; Stop 10/31/20 at 13:19; Status DC Furosemide (Lasix) 80 mg 1X ONCE IVP Last administered on 10/31/20at 13:36; Start 10/31/20 at 13:30; Stop 10/31/20 at 13:31; Status DC Lidocaine HCl (Glydo (Lidocaine) Jelly) 1 nathalie 1X ONCE MM ; Start 11/01/20 at 02:30; Stop 11/01/20 at 02:31; Status DC Metolazone (Zaroxolyn) 2.5 mg DAILY PO Last administered on 11/05/20at 08:17; Start 11/02/20 at 14:00 Atorvastatin Calcium (Lipitor) 20 mg QHS PO Last administered on 11/04/20at 20:47; Start 11/02/20 at 21:00 Furosemide (Lasix) 100 mg 1X ONCE IVP ; Start 11/03/20 at 13:15; Stop 11/03/20 at 13:18; Status DC Oxycodone HCl (Roxicodone) 10 mg 1X ONCE PO Last administered on 11/03/20at 20:49; Start 11/03/20 at 20:00; Stop 11/03/20 at 20:05; Status DC Furosemide (Lasix) 100 mg 1X ONCE IVP ; Start 11/04/20 at 09:00; Stop 11/04/20 at 09:01; Status DC Furosemide (Lasix) 40 mg 1X ONCE IVP Last administered on 11/04/20at 12:13; Start 11/04/20 at 12:00; Stop 11/04/20 at 12:01; Status DC Albuterol Sulfate (Ventolin Neb Soln) 2.5 mg PRN Q6HRS PRN NEB SHORTNESS OF BREATH Last administered on 11/04/20at 16:05; Start 11/04/20 at 13:00 Insulin Glargine (Lantus Syringe) 38 unit QHS SQ Last administered on 11/04/20at 21:07; Start 11/04/20 at 21:00 Insulin Human Lispro (HumaLOG) 13 units TIDWMEALS SQ Last administered on 11/05/20at 08:32; Start 11/04/20 at 17:00 Dextrose (Dextrose 50%-Water Syringe) 12.5 gm PRN Q15MIN PRN IV SEE COMMENTS; Start 11/04/20 at 15:15; Status UNV Active Scripts Active Flomax (Tamsulosin Hcl) 0.4 Mg Cap.er.24h 0.4 Mg PO DAILY Children's Aspirin (Aspirin) 81 Mg Tab.chew 81 Mg PO DAILYWBKFT Reported Senna-Docusate Sodium Tablet (Sennosides/Docusate Sodium) 1 Each Tablet 2 Tab PO PRN QEVNG PRN 5 Days Spironolactone 25 Mg Tablet 25 Mg PO DAILY Vitamin D2 (Ergocalciferol (Vitamin D2)) 1,250 Mcg Capsule 1,250 Mcg PO WEEKLY Lasix (Furosemide) 80 Mg Tablet 80 Mg PO BID Clopidogrel (Clopidogrel Bisulfate) 75 Mg Tablet 75 Mg PO DAILY Carvedilol 25 Mg Tablet 25 Mg PO BIDWMEALS Isosorbide Dinitrate 40 Mg Tablet.er 5 Mg PO TID Gabapentin 600 Mg Tablet 300 Mg PO TID Protonix (Pantoprazole Sodium) 40 Mg Tablet.dr 40 Mg PO BID Hydralazine Hcl 100 Mg Tablet 100 Mg PO TID Amlodipine Besylate 10 Mg Tablet 10 Mg PO DAILY Crestor (Rosuvastatin Calcium) 20 Mg Tablet 20 Mg PO QHS Levemir Flexpen (Insulin Detemir) 100 Unit/1 Ml Insuln.pen 60 Unit SQ HS Novolog Flexpen (Insulin Aspart) 100 Unit/1 Ml Insuln.pen 30 Unit SQ TIDAC Vitals/I & O Vital Sign - Last 24 Hours 11/04/20 11/04/20 11/04/20 11/04/20 11:00 12:26 13:30 14:00 Temp 97.7 97.7 Pulse 69 64 Resp 20 B/P (MAP) 163/72 (102) 142/46 Pulse Ox 97 96 O2 Delivery Nasal Cannula Room Air Nasal Cannula O2 Flow Rate 3.0 3.0 11/04/20 11/04/20 11/04/20 11/04/20 15:00 15:03 16:17 17:19 Temp 97.8 97.8 Pulse 64 64 64 Resp 20 B/P (MAP) 142/46 (78) 142/46 142/46 Pulse Ox 96 98 O2 Delivery Nasal Cannula Nasal Cannula O2 Flow Rate 3.0 3.0 11/04/20 11/04/20 11/04/20 11/04/20 18:55 19:10 19:15 20:00 Temp 97.7 97.7 Pulse 62 Resp 20 20 18 B/P (MAP) 131/41 (71) Pulse Ox 94 O2 Delivery BiPAP/CPAP BiPAP/CPAP Bi-pap BiPAP/CPAP 11/04/20 11/04/20 11/04/20 11/05/20 20:48 20:48 23:15 02:58 Temp 97.9 98.1 97.9 98.1 Pulse 62 62 58 59 Resp 20 20 B/P (MAP) 131/41 131/41 158/72 (100) 121/49 (73) Pulse Ox 95 96 O2 Delivery BiPAP/CPAP BiPAP/CPAP 11/05/20 11/05/20 11/05/20 11/05/20 07:00 08:17 08:18 08:18 Temp 97.6 97.6 Pulse 68 65 65 65 Resp 22 B/P (MAP) 162/62 (95) Pulse Ox 96 O2 Delivery Nasal Cannula O2 Flow Rate 2.0 11/05/20 08:19 Pulse 65 Intake and Output 11/04/20 11/04/20 11/05/20 15:00 23:00 07:00 Intake Total 298 ml 680 ml 240 ml Output Total 801 ml 800 ml 800 ml Balance -503 ml -120 ml -560 ml Justifications for Admission Other Justification Acute respiratory failure with hypoxia, acute diastolic CHF exacerbation, right breast mass RYLEY ELLISON MD Nov 05, 2020 09:58
[2020-11-05 11:00] VITALS: BP 152/50
[2020-11-05] MEDS: SODIUM POLYSTYRENE SULFON/SORB 15 GM/60 ML ORAL.SUSP. PO ONE ×2 (13:00→15:38)
--- NOTE | 2020-11-05 13:26 | PDOC ---
PROGRESS NOTES Date of Service DATE: 11/05/20 TIME: 13:25 Subjective Subjective Patient seen and examined Objective Objective Vital Signs Date Time Temp Pulse Resp B/P (MAP) Pulse Ox O2 Delivery O2 Flow Rate FiO2 11/05/20 11:00 97.8 65 24 152/50 (84) 98 Nasal Cannula 2.0 97.8 Intake and Output 11/05/20 07:00 Intake Total 1218 ml Output Total 2401 ml Balance -1183 ml Intake Oral 1218 ml Output Urine Total 2401 ml # Voids 1 Physical Exam Abdomen: Normal bowel sounds Heart: Regular rate General: No acute distress Lungs: Other (Mildly decreased shortness of breath) Assessment Assessment Problems Medical Problems: (1) Chest pain Status: Acute (2) CHF exacerbation Status: Acute (3) HTN (hypertension) Status: Acute (4) Person under investigation for COVID-19 Status: Acute Acute on chronic diastolic CHF; due to noncompliance and continued cocaine use. Continues to slowly improve. Echo with normal LVEF with moderate MR and moderate pulmonary hypertension. S/P RHC. RA pressures 18/26/13, RV 67/6/17, PA 64/20/37, wedge 29/46/27, PA saturation 53%. Fabio cardiac output 5.55 L/min, cardiac index 2.35. Continuing treatment. MARQUISE on CKD, hyperkalemia; Cr improved. nephrology following AECOPD with continued tobaccoism ROXANNE: uses CPAP at home Hypertension; improved PAD: prior right femoropopliteal bypass in 2016, clinically stable Dyslipidemia; LDL 6 Diabetes, II Substance abuse; cocaine, PCP CAD; moderate disease of left circumflex system per LHC in 2017 at . MPI in 2019 without any significant ischemia with preserved LV function Comment Review of Relevant I have reviewed the following items karissa (where applicable) has been applied. Labs Laboratory Tests Test 11/03/20 15:56 11/03/20 20:53 11/04/20 08:11 11/04/20 09:40 Glucose (Fingerstick) 52 mg/dL (70-99) 253 mg/dL (70-99) 98 mg/dL (70-99) White Blood Count 5.4 x10^3/uL (4.0-11.0) Red Blood Count 2.97 x10^6/uL (4.30-5.70) Hemoglobin 8.3 g/dL (13.0-17.5) Hematocrit 26.5 % (39.0-53.0) Mean Corpuscular Volume 89 fL (79-100) Mean Corpuscular Hemoglobin 28 pg (25-35) Mean Corpuscular Hemoglobin Concent 31 g/dL (31-37) Red Cell Distribution Width 15.1 % (11.5-14.5) Platelet Count 285 x10^3/uL (140-400) Neutrophils (%) (Auto) 76 % (31-73) Lymphocytes (%) (Auto) 13 % (24-48) Monocytes (%) (Auto) 7 % (0-9) Eosinophils (%) (Auto) 5 % (0-3) Basophils (%) (Auto) 0 % (0-3) Neutrophils # (Auto) 4.1 x10^3/uL (1.8-7.7) Lymphocytes # (Auto) 0.7 x10^3/uL (1.0-4.8) Monocytes # (Auto) 0.4 x10^3/uL (0.0-1.1) Eosinophils # (Auto) 0.3 x10^3/uL (0.0-0.7) Basophils # (Auto) 0.0 x10^3/uL (0.0-0.2) Sodium Level 137 mmol/L (136-145) Potassium Level 5.3 mmol/L (3.5-5.1) Chloride Level 105 mmol/L (98-107) Carbon Dioxide Level 24 mmol/L (21-32) Anion Gap 8 (6-14) Blood Urea Nitrogen 46 mg/dL (8-26) Creatinine 2.0 mg/dL (0.7-1.3) Estimated GFR (Cockcroft-Gault) 42.0 Glucose Level 201 mg/dL (70-99) Calcium Level 8.9 mg/dL (8.5-10.1) Magnesium Level 2.3 mg/dL (1.8-2.4) Test 11/04/20 12:19 11/04/20 16:15 11/04/20 17:10 11/04/20 20:56 Glucose (Fingerstick) 165 mg/dL (70-99) 72 mg/dL (70-99) 234 mg/dL (70-99) Urine Collection Type Unknown Urine Color Yellow Urine Clarity Clear Urine pH 5.0 (<5.0-8.0) Urine Specific [place] 1.010 (1.000-1.030) Urine Protein Negative mg/dL (NEG-TRACE) Urine Glucose (UA) Negative mg/dL (NEG) Urine Ketones (Stick) Negative mg/dL (NEG) Urine Blood Negative (NEG) Urine Nitrite Negative (NEG) Urine Bilirubin Negative (NEG) Urine Urobilinogen Dipstick 0.2 mg/dL (0.2 mg/dL) Urine Leukocyte Esterase Negative (NEG) Urine RBC Occ /HPF (0-2) Urine WBC 1-4 /HPF (0-4) Urine Squamous Epithelial Cells Few /LPF Urine Bacteria 0 /HPF (0-FEW) Test 11/05/20 06:35 11/05/20 07:47 11/05/20 11:57 Sodium Level 136 mmol/L (136-145) Potassium Level 5.5 mmol/L (3.5-5.1) Chloride Level 105 mmol/L (98-107) Carbon Dioxide Level 26 mmol/L (21-32) Anion Gap 5 (6-14) Blood Urea Nitrogen 50 mg/dL (8-26) Creatinine 2.2 mg/dL (0.7-1.3) Estimated GFR (Cockcroft-Gault) 37.7 Glucose Level 179 mg/dL (70-99) Calcium Level 8.5 mg/dL (8.5-10.1) Glucose (Fingerstick) 170 mg/dL (70-99) 151 mg/dL (70-99) Laboratory Tests Test 11/04/20 16:15 11/04/20 17:10 11/04/20 20:56 11/05/20 06:35 Urine Collection Type Unknown Urine Color Yellow Urine Clarity Clear Urine pH 5.0 (<5.0-8.0) Urine Specific [place] 1.010 (1.000-1.030) Urine Protein Negative mg/dL (NEG-TRACE) Urine Glucose (UA) Negative mg/dL (NEG) Urine Ketones (Stick) Negative mg/dL (NEG) Urine Blood Negative (NEG) Urine Nitrite Negative (NEG) Urine Bilirubin Negative (NEG) Urine Urobilinogen Dipstick 0.2 mg/dL (0.2 mg/dL) Urine Leukocyte Esterase Negative (NEG) Urine RBC Occ /HPF (0-2) Urine WBC 1-4 /HPF (0-4) Urine Squamous Epithelial Cells Few /LPF Urine Bacteria 0 /HPF (0-FEW) Glucose (Fingerstick) 72 mg/dL (70-99) 234 mg/dL (70-99) Sodium Level 136 mmol/L (136-145) Potassium Level 5.5 mmol/L (3.5-5.1) Chloride Level 105 mmol/L (98-107) Carbon Dioxide Level 26 mmol/L (21-32) Anion Gap 5 (6-14) Blood Urea Nitrogen 50 mg/dL (8-26) Creatinine 2.2 mg/dL (0.7-1.3) Estimated GFR (Cockcroft-Gault) 37.7 Glucose Level 179 mg/dL (70-99) Calcium Level 8.5 mg/dL (8.5-10.1) Test 11/05/20 07:47 11/05/20 11:57 Glucose (Fingerstick) 170 mg/dL (70-99) 151 mg/dL (70-99) Microbiology 10/31/20 Gram Stain - Final, Resulted 10/31/20 Aerobic and Anaerobic Culture - Preliminary, Resulted 10/30/20 Urine Culture - Final, Complete Medications Current Medications Nitroglycerin (Nitro-Bid Oint) 1 inch 1X ONCE TP Last administered on 10/20/20at 13:22; Start 10/20/20 at 13:15; Stop 10/20/20 at 13:16; Status DC Morphine Sulfate (Morphine Sulfate) 4 mg 1X ONCE IV Last administered on 10/20/20at 13:23; Start 10/20/20 at 13:15; Stop 10/20/20 at 13:16; Status DC Furosemide (Lasix) 80 mg 1X ONCE IVP Last administered on 10/20/20at 16:25; Start 10/20/20 at 15:45; Stop 10/20/20 at 15:46; Status DC Hydralazine HCl (Apresoline Inj) 10 mg PRN Q20MIN PRN IVP ELEVATED BP, SEE COMMENTS Last administered on 10/20/20at 16:28; Start 10/20/20 at 15:30 Furosemide (Lasix) 80 mg [id number] PO Last administered on 10/23/20at 08:11; Start 10/21/20 at 09:00; Stop 10/24/20 at 15:14; Status DC Insulin Human Lispro (HumaLOG) 0-9 UNITS TIDWMEALS SQ Last administered on 11/03/20at 12:31; Start 10/20/20 at 17:00; Stop 11/04/20 at 15:01; Status DC Dextrose (Dextrose 50%-Water Syringe) 12.5 gm PRN Q15MIN PRN IV SEE COMMENTS; Start 10/20/20 at 15:45 Ondansetron HCl (Zofran) 4 mg PRN Q6HRS PRN IVP NAUSEA/VOMITING Last administered on 10/22/20at 11:57; Start 10/20/20 at 16:15 Al Hydroxide/Mg Hydroxide (Mylanta Plus Xs) 30 ml PRN Q3HRS PRN PO HEARTBURN / GAS; Start 10/20/20 at 16:15; Stop 10/31/20 at 12:38; Status DC Calcium Carbonate/ Glycine (Tums) 500 mg PRN Q3HRS PRN PO UPSET STOMACH; Start 10/20/20 at 16:15 Zolpidem Tartrate (Ambien) 5 mg PRN QHS PRN PO INSOMNIA, MAY REPEAT IN 1HR Last administered on 11/02/20at 21:45; Start 10/20/20 at 16:15 Acetaminophen (Tylenol) 650 mg PRN Q6HRS PRN PO Headaches, Temp > 101.5F Last administered on 10/25/20at 14:19; Start 10/20/20 at 16:15 Magnesium Hydroxide (Milk Of Magnesia) 2,400 mg PRN Q12HR PRN PO CONSTIPATION (1ST CHOICE) Last administered on 10/22/20at 06:11; Start 10/20/20 at 16:15; Stop 10/31/20 at 12:37; Status DC Bisacodyl (Dulcolax Supp) 10 mg PRN DAILY PRN [place] CONSTIPATION; Start 10/20/20 at 16:15 Heparin Sodium (Porcine) (Heparin Sodium) 5,000 unit Q8HRS SQ Last administered on 10/29/20at 05:59; Start 10/20/20 at 16:30; Stop 10/29/20 at 07:14; Status DC Morphine Sulfate (Morphine Sulfate) 4 mg PRN Q2HR PRN IV MODERATE TO SEVERE PAIN Last administered on 11/02/20 16:24; Start 10/20/20 at 16:30 Tramadol HCl (Ultram) 50 mg PRN Q6HRS PRN PO MILD TO MODERATE PAIN Last administered on 10/24/20 08:25; Start 10/20/20 at 16:30; Stop 10/30/20 at 20:36; Status DC Amlodipine Besylate (Norvasc) 10 mg DAILY PO Last administered on 11/05/20 08:18; Start 10/21/20 at 09:00 Aspirin (Aspirin Chewable) 81 mg DAILYWBKFT PO Last administered on 11/05/20 08:17; Start 10/21/20 at 08:00 Clopidogrel Bisulfate (Plavix) 75 mg DAILY PO Last administered on 11/05/20 08:18; Start 10/21/20 at 09:00 Furosemide (Lasix) 80 mg [id number] PO Last administered on 10/21/20 08:54; Start 10/20/20 at 17:30; Stop 10/21/20 at 09:37; Status DC Pantoprazole Sodium (Protonix) 40 mg BIDAC PO Last administered on 11/05/20 08 :17; Start 10/20/20 at 17:30 Senna/Docusate Sodium (Senna Plus) 2 tab PRN QEVNG PRN PO CONSTIPATION; Start 10/20/20 at 17:30 Spironolactone (Aldactone) 25 mg DAILY PO Last administered on 10/21/20 08:52; Start 10/21/20 at 09:00; Stop 10/21/20 at 14:06; Status DC Tamsulosin HCl (Flomax) 0.4 mg DAILY PO Last administered on 11/05/20 08:17; Start 10/21/20 at 09:00 Carvedilol (Coreg) 25 mg BIDWMEALS PO Last administered on 11/05/20 08:19; Start 10/20/20 at 17:30 Gabapentin (Neurontin) 300 mg TID PO Last administered on 11/05/20 08:19; Start 10/20/20 at 21:00 Hydralazine HCl (Apresoline) 100 mg TID PO Last administered on 11/05/20 08 :17; Start 10/20/20 at 21:00 Insulin Human Lispro (HumaLOG) 30 units TIDWMEALS SQ Last administered on 11/04/20at 12:00; Start 10/21/20 at 08:00; Stop 11/04/20 at 15:01; Status DC Insulin Glargine (Lantus Syringe) 60 unit QHS SQ Last administered on 10/22/20at 21:17; Start 10/20/20 at 21:00; Stop 10/23/20 at 13:07; Status DC Isosorbide Dinitrate (Isordil) 5 mg TID PO Last administered on 11/05/20at 08:18; Start 10/20/20 at 21:00 Atorvastatin Calcium (Lipitor) 80 mg QHS PO Last administered on 10/24/20at 21:42; Start 10/20/20 at 21:00; Stop 10/25/20 at 13:42; Status DC Lorazepam (Ativan Inj) 1 mg PRN Q4HRS PRN IVP ANXIETY / AGITATION Last administered on 10/22/20at 11:57; Start 10/20/20 at 17:30 Insulin Glargine (Lantus Syringe) 70 unit QHS SQ Last administered on 11/03/20at 21:12; Start 10/23/20 at 21:00; Stop 11/04/20 at 15:01; Status DC Lidocaine (Lidoderm) 2 patch DAILY TD Last administered on 11/05/20at 08:20; Start 10/24/20 at 09:00 Miscellaneous (Lidoderm Patch Removal) 1 ea QHS MC Last administered on 11/04/20at 20:50; Start 10/24/20 at 21:00 Polysaccharide Iron Complex (Niferex 150) 150 mg DAILY PO Last administered on 11/05/20at 08:19; Start 10/24/20 at 14:00 Sodium Chloride 1,000 ml @ 75 mls/hr [id number] ONCE IV ; Start 10/25/20 at 11:15; Stop 10/25/20 at 13:42; Status DC Sodium Chloride 1,000 ml @ 75 mls/hr [id number] IV Last administered on 10/28/20at 20:48; Start 10/25/20 at 14:00; Stop 10/30/20 at 13:30; Status DC Duloxetine HCl (Cymbalta) 30 mg DAILY PO Last administered on 10/27/20at 08:03; Start 10/25/20 at 15:00; Stop 10/27/20 at 13:33; Status DC Lactulose (Lactulose) 20 gm 1X ONCE PO Last administered on 10/26/20at 12:47; Start 10/26/20 at 10:30; Stop 10/26/20 at 10:31; Status DC Lactulose (Lactulose) 20 gm 1X ONCE PO Last administered on 10/26/20at 12:47; Start 10/26/20 at 10:30; Stop 10/26/20 at 10:31; Status DC Duloxetine HCl (Cymbalta) 60 mg DAILY PO Last administered on 11/05/20at 08:17; Start 10/28/20 at 09:00 Furosemide (Lasix) 40 mg 1X ONCE IVP Last administered on 10/30/20at 12:37; Start 10/30/20 at 12:15; Stop 10/30/20 at 12:20; Status DC Morphine Sulfate (Morphine Sulfate) 4 mg 1X ONCE IM ; Start 10/30/20 at 20:45; Stop 10/30/20 at 20:46; Status Cancel Ceftriaxone Sodium (Rocephin) 1 gm Q24H IVP Last administered on 11/03/20at 21:06; Start 10/30/20 at 21:00; Stop 11/04/20 at 14:58; Status DC Furosemide (Lasix) 40 mg 1X ONCE IVP Last administered on 10/30/20at 21:00; Start 10/30/20 at 21:00; Stop 10/30/20 at 21:01; Status DC Morphine Sulfate (Morphine Sulfate) 4 mg 1X ONCE IV Last administered on 10/30/20at 22:00; Start 10/30/20 at 22:00; Stop 10/30/20 at 22:01; Status DC Fentanyl Citrate (Fentanyl 2ml Vial) 100 mcg STK-MED ONCE .ROUTE ; Start 10/31/20 at 12:18; Stop 10/31/20 at 12:19; Status DC Midazolam HCl (Versed) 2 mg STK-MED ONCE .ROUTE ; Start 10/31/20 at 12:18; Stop 10/31/20 at 12:19; Status DC Heparin Sodium/ Sodium Chloride 1,000 ml @ As Directed STK-MED ONCE .ROUTE ; Start 10/31/20 at 12:19; Stop 10/31/20 at 12:19; Status DC Lidocaine HCl (Lidocaine 1% 20ml Vial) 20 ml STK-MED ONCE .ROUTE ; Start 10/31/20 at 12:28; Stop 10/31/20 at 12:28; Status DC Heparin Sodium/ Sodium Chloride (HEPARIN for ARTERIAL LINE FLUSH) 1,000 unit 1X ONCE IART Last administered on 10/31/20at 13:35; Start 10/31/20 at 12:30; Stop 10/31/20 at 12:32; Status DC Heparin Sodium/ Sodium Chloride (HEPARIN for ARTERIAL LINE FLUSH) 1,000 unit 1X ONCE IART Last administered on 10/31/20at 13:35; Start 10/31/20 at 12:30; Stop 10/31/20 at 12:32; Status DC Midazolam HCl (Versed) 2 mg 1X ONCE IV Last administered on 10/31/20at 13:35; Start 10/31/20 at 12:30; Stop 10/31/20 at 12:32; Status DC Fentanyl Citrate (Fentanyl 2ml Vial) 100 mcg 1X ONCE IV Last administered on 10/31/20at 13:35; Start 10/31/20 at 12:30; Stop 10/31/20 at 12:32; Status DC Lidocaine HCl (Lidocaine 1% 20ml Vial) 20 ml 1X ONCE INJ Last administered on 10/31/20at 13:34; Start 10/31/20 at 12:30; Stop 10/31/20 at 12:32; Status DC Acetaminophen/ Hydrocodone Bitart (Lortab 5/325) 1 tab PRN Q6HRS PRN PO PAIN Last administered on 11/05/20at 08:27; Start 10/31/20 at 12:30 Furosemide (Lasix) 100 mg STK-MED ONCE .ROUTE ; Start 10/31/20 at 13:19; Stop 10/31/20 at 13:19; Status DC Furosemide (Lasix) 80 mg 1X ONCE IVP Last administered on 10/31/20at 13:36; Start 10/31/20 at 13:30; Stop 10/31/20 at 13:31; Status DC Lidocaine HCl (Glydo (Lidocaine) Jelly) 1 nathalie 1X ONCE MM ; Start 11/01/20 at 02:30; Stop 11/01/20 at 02:31; Status DC Metolazone (Zaroxolyn) 2.5 mg DAILY PO Last administered on 11/05/20at 08:17; Start 11/02/20 at 14:00 Atorvastatin Calcium (Lipitor) 20 mg QHS PO Last administered on 11/04/20at 20:47; Start 11/02/20 at 21:00 Furosemide (Lasix) 100 mg 1X ONCE IVP ; Start 11/03/20 at 13:15; Stop 11/03/20 at 13:18; Status DC Oxycodone HCl (Roxicodone) 10 mg 1X ONCE PO Last administered on 11/03/20at 20:49; Start 11/03/20 at 20:00; Stop 11/03/20 at 20:05; Status DC Furosemide (Lasix) 100 mg 1X ONCE IVP ; Start 11/04/20 at 09:00; Stop 11/04/20 at 09:01; Status DC Furosemide (Lasix) 40 mg 1X ONCE IVP Last administered on 11/04/20at 12:13; St art 11/04/20 at 12:00; Stop 11/04/20 at 12:01; Status DC Albuterol Sulfate (Ventolin Neb Soln) 2.5 mg PRN Q6HRS PRN NEB SHORTNESS OF BREATH Last administered on 11/04/20at 16:05; Start 11/04/20 at 13:00 Insulin Glargine (Lantus Syringe) 38 unit QHS SQ Last administered on 11/04/20at 21:07; Start 11/04/20 at 21:00 Insulin Human Lispro (HumaLOG) 13 units TIDWMEALS SQ Last administered on 11/05/20at 12:52; Start 11/04/20 at 17:00 Dextrose (Dextrose 50%-Water Syringe) 12.5 gm PRN Q15MIN PRN IV SEE COMMENTS; Start 11/04/20 at 15:15; Status UNV Sodium Polystyrene Sulfonate (Kayexalate) 45 gm 1X ONCE PO ; Start 11/05/20 at 13:00; Stop 11/05/20 at 13:01; Status DC Active Scripts Active Flomax (Tamsulosin Hcl) 0.4 Mg Cap.er.24h 0.4 Mg PO DAILY Children's Aspirin (Aspirin) 81 Mg Tab.chew 81 Mg PO DAILYWBKFT Reported Senna-Docusate Sodium Tablet (Sennosides/Docusate Sodium) 1 Each Tablet 2 Tab PO PRN QEVNG PRN 5 Days Spironolactone 25 Mg Tablet 25 Mg PO DAILY Vitamin D2 (Ergocalciferol (Vitamin D2)) 1,250 Mcg Capsule 1,250 Mcg PO WEEKLY Lasix (Furosemide) 80 Mg Tablet 80 Mg PO BID Clopidogrel (Clopidogrel Bisulfate) 75 Mg Tablet 75 Mg PO DAILY Carvedilol 25 Mg Tablet 25 Mg PO BIDWMEALS Isosorbide Dinitrate 40 Mg Tablet.er 5 Mg PO TID Gabapentin 600 Mg Tablet 300 Mg PO TID Protonix (Pantoprazole Sodium) 40 Mg Tablet.dr 40 Mg PO BID Hydralazine Hcl 100 Mg Tablet 100 Mg PO TID Amlodipine Besylate 10 Mg Tablet 10 Mg PO DAILY Crestor (Rosuvastatin Calcium) 20 Mg Tablet 20 Mg PO QHS Levemir Flexpen (Insulin Detemir) 100 Unit/1 Ml Insuln.pen 60 Unit SQ HS Novolog Flexpen (Insulin Aspart) 100 Unit/1 Ml Insuln.pen 30 Unit SQ TIDAC Vitals/I & O Vital Sign - Last 24 Hours 11/04/20 11/04/20 11/04/20 11/04/20 13:30 14:00 15:00 15:03 Temp 97.8 97.8 Pulse 64 64 64 Resp 20 B/P (MAP) 142/46 142/46 (78) 142/46 Pulse Ox 96 96 O2 Delivery Nasal Cannula Nasal Cannula O2 Flow Rate 3.0 3.0 11/04/20 11/04/20 11/04/20 11/04/20 16:17 17:19 18:55 19:10 Temp 97.7 97.7 Pulse 64 62 Resp 20 20 B/P (MAP) 142/46 131/41 (71) Pulse Ox 98 94 O2 Delivery Nasal Cannula BiPAP/CPAP BiPAP/CPAP O2 Flow Rate 3.0 11/04/20 11/04/20 11/04/20 11/04/20 19:15 20:00 20:48 20:48 Pulse 62 62 Resp 18 B/P (MAP) 131/41 131/41 O2 Delivery Bi-pap BiPAP/CPAP 11/04/20 11/05/20 11/05/20 11/05/20 23:15 02:58 07:00 08:05 Temp 97.9 98.1 97.6 97.9 98.1 97.6 Pulse 58 59 68 Resp 20 20 22 B/P (MAP) 158/72 (100) 121/49 (73) 162/62 (95) Pulse Ox 95 96 96 O2 Delivery BiPAP/CPAP BiPAP/CPAP Nasal Cannula Nasal Cannula O2 Flow Rate 2.0 3.0 11/05/20 11/05/20 11/05/20 11/05/20 08:17 08:18 08:18 08:19 Pulse 65 65 65 65 11/05/20 11:00 Temp 97.8 97.8 Pulse 65 Resp 24 B/P (MAP) 152/50 (84) Pulse Ox 98 O2 Delivery Nasal Cannula O2 Flow Rate 2.0 Intake and Output 11/04/20 11/04/20 11/05/20 15:00 23:00 07:00 Intake Total 298 ml 680 ml 240 ml Output Total 801 ml 800 ml 800 ml Balance -503 ml -120 ml -560 ml Justifications for Admission Other Justification Acute respiratory failure with hypoxia, acute diastolic CHF exacerbation, right breast mass SALVADOR ANDERSON MD Nov 05, 2020 13:26
--- NOTE | 2020-11-05 13:32 | PDOC ---
DATE OF SERVICE: DOS: DATE: 11/05/20 TIME: 13:29 SUBJECTIVE ROS Follow-up for chronic kidney disease Patient denies new complaints. Shortness of breath improved OBJECTIVE Vital Signs Vital Signs Date Time Temp Pulse Resp B/P (MAP) Pulse Ox O2 Delivery O2 Flow Rate FiO2 11/05/20 11:00 97.8 65 24 152/50 (84) 98 Nasal Cannula 2.0 97.8 I & 0 Intake and Output 11/05/20 07:00 Intake Total 1218 ml Output Total 2401 ml Balance -1183 ml Intake Oral 1218 ml Output Urine Total 2401 ml # Voids 1 PHYSICAL EXAM Physical Exam GEN: Awake, Oriented x 2, In no distress, somewhat obese -[place] gentleman EYES: Vision Unchanged, Conjunctiva Normal EN: No EN Drainage, Mucous Membranes moist NECK: no JVD, no JVP, Supple, no Thyromegaly CVS: S1S2, soft Murmur, No Gallop, No Rub,+ Edema RESP: Few basal Rales, no rhonchi, no Acc. Muscle Use GI: BS + ve, NO Bruit, Non Tender, obese versus distended : no CVA tenderness, no Suprapubic Tenderness DIAGNOSIS/ASSESSMENT Assessment & Plan CKD STAGE 3B WITH CR OF 2.0. Presumed diabetic hypertensive nephrosclerosis current creatinine pretty close to baseline. MARQUISE with ATN now resolved HYPERKALEMIA: Change diet to low potassium diet. One-time Kayexalate. Will check venous pH along with labs to ensure that this is not respiratory acidosis induced hyperkalemia ACUTE ON CHRONIC DIASTOLIC CHF DRUG ABUSE-COCAINE ANEMIA: Previously iron deficient COMMENT/RELEVANT DATA Meds Current Medications Medications (Trade) Dose Ordered Sig/Kiera Start Time Stop Time Status Last Admin Dose Admin Acetaminophen (Tylenol) 650 mg PRN Q6HRS PRN 10/20/20 16:15 10/25/20 14:19 650 MG Acetaminophen/ Hydrocodone Bitart (Lortab 5/325) 1 tab PRN Q6HRS PRN 10/31/20 12:30 11/05/20 08:27 1 TAB Al Hydroxide/Mg Hydroxide (Mylanta Plus Xs) 30 ml PRN Q3HRS PRN 10/20/20 16:15 10/31/20 12:38 DC Albuterol Sulfate (Ventolin Neb Soln) 2.5 mg PRN Q6HRS PRN 11/04/20 13:00 11/04/20 16:05 2.5 MG Amlodipine Besylate (Norvasc) 10 mg DAILY 10/21/20 09:00 11/05/20 08:18 10 MG Aspirin (Aspirin Chewable) 81 mg DAILYWBKFT 10/21/20 08:00 11/05/20 08:17 81 MG Atorvastatin Calcium (Lipitor) 20 mg QHS 11/02/20 21:00 11/04/20 20:47 20 MG Bisacodyl (Dulcolax Supp) 10 mg PRN DAILY PRN 10/20/20 16:15 Calcium Carbonate/ Glycine (Tums) 500 mg PRN Q3HRS PRN 10/20/20 16:15 Carvedilol (Coreg) 25 mg BIDWMEALS 10/20/20 17:30 11/05/20 08:19 25 MG Ceftriaxone Sodium (Rocephin) 1 gm Q24H 10/30/20 21:00 11/04/20 14:58 DC 11/03/20 21:06 1 GM Clopidogrel Bisulfate (Plavix) 75 mg DAILY 10/21/20 09:00 11/05/20 08:18 75 MG Dextrose (Dextrose 50%-Water Syringe) 12.5 gm PRN Q15MIN PRN 11/04/20 15:15 UNV Duloxetine HCl (Cymbalta) 60 mg DAILY 10/28/20 09:00 11/05/20 08:17 60 MG Fentanyl Citrate (Fentanyl 2ml Vial) 100 mcg 1X ONCE 10/31/20 12:30 10/31/20 12:32 DC 10/31/20 13:35 50 MCG Furosemide (Lasix) 40 mg 1X ONCE 11/04/20 12:00 11/04/20 12:01 DC 11/04/20 12:13 40 MG Gabapentin (Neurontin) 300 mg TID 10/20/20 21:00 11/05/20 08:19 300 MG Heparin Sodium (Porcine) (Heparin Sodium) 5,000 unit Q8HRS 10/20/20 16:30 10/29/20 07:14 DC 10/29/20 05:59 5,000 UNIT Heparin Sodium/ Sodium Chloride (HEPARIN for ARTERIAL LINE FLUSH) 1,000 unit 1X ONCE 10/31/20 12:30 10/31/20 12:32 DC 10/31/20 13:35 1,000 UNIT Hydralazine HCl (Apresoline Inj) 10 mg PRN Q20MIN PRN 10/20/20 15:30 10/20/20 16:28 10 MG Hydralazine HCl (Apresoline) 100 mg TID 10/20/20 21:00 11/05/20 08:17 100 MG Insulin Glargine (Lantus Syringe) 38 unit QHS 11/04/20 21:00 11/04/20 21:07 38 UNIT Insulin Human Lispro (HumaLOG) 13 units TIDWMEALS 11/04/20 17:00 11/05/20 12:52 13 UNITS Isosorbide Dinitrate (Isordil) 5 mg TID 10/20/20 21:00 11/05/20 08:18 5 MG Lactulose (Lactulose) 20 gm 1X ONCE 10/26/20 10:30 10/26/20 10:31 DC 10/26/20 12:47 20 GM Lidocaine (Lidoderm) 2 patch DAILY 10/24/20 09:00 11/05/20 08:20 2 PATCH Lidocaine HCl (Glydo (Lidocaine) Jelly) 1 nathalie 1X ONCE 11/01/20 02:30 11/01/20 02:31 DC Lidocaine HCl (Lidocaine 1% 20ml Vial) 20 ml 1X ONCE 10/31/20 12:30 10/31/20 12:32 DC 10/31/20 13:34 6 ML Lorazepam (Ativan Inj) 1 mg PRN Q4HRS PRN 10/20/20 17:30 10/22/20 11:57 1 MG Magnesium Hydroxide (Milk Of Magnesia) 2,400 mg PRN Q12HR PRN 10/20/20 16:15 10/31/20 12:37 DC 10/22/20 06:11 2,400 MG Metolazone (Zaroxolyn) 2.5 mg DAILY 11/02/20 14:00 11/05/20 08:17 2.5 MG Midazolam HCl (Versed) 2 mg 1X ONCE 10/31/20 12:30 10/31/20 12:32 DC 10/31/20 13:35 2 MG Miscellaneous (Lidoderm Patch Removal) 1 ea QHS 10/24/20 21:00 2/19/21 20:50 1 EA Morphine Sulfate (Morphine Sulfate) 4 mg 1X ONCE 10/30/20 22:00 10/30/20 22:01 DC 10/30/20 22:00 4 MG Nitroglycerin (Nitro-Bid Oint) 1 inch 1X ONCE 10/20/20 13:15 10/20/20 13:16 DC 10/20/20 13:22 1 INCH Ondansetron HCl (Zofran) 4 mg PRN Q6HRS PRN 10/20/20 16:15 10/22/20 11:57 4 MG Oxycodone HCl (Roxicodone) 10 mg 1X ONCE 11/03/20 20:00 11/03/20 20:05 DC 11/03/20 20:49 10 MG Pantoprazole Sodium (Protonix) 40 mg BIDAC 10/20/20 17:30 11/05/20 08:17 40 MG Polysaccharide Iron Complex (Niferex 150) 150 mg DAILY 10/24/20 14:00 11/05/20 08:19 150 MG Senna/Docusate Sodium (Senna Plus) 2 tab PRN QEVNG PRN 10/20/20 17:30 Sodium Polystyrene Sulfonate (Kayexalate) 45 gm 1X ONCE 11/05/20 13:00 11/05/20 13:01 DC Sodium Chloride 1,000 ml @ 75 mls/hr [id number] 10/25/20 14:00 10/30/20 13:30 DC 10/28/20 20:48 75 MLS/HR Spironolactone (Aldactone) 25 mg DAILY 10/21/20 09:00 10/21/20 14:06 DC 10/21/20 08:52 25 MG Tamsulosin HCl (Flomax) 0.4 mg DAILY 10/21/20 09:00 11/05/20 08:17 0.4 MG Tramadol HCl (Ultram) 50 mg PRN Q6HRS PRN 10/20/20 16:30 10/30/20 20:36 DC 10/24/20 08:25 50 MG Zolpidem Tartrate (Ambien) 5 mg PRN QHS PRN 10/20/20 16:15 11/02/20 21:45 5 MG Lab Laboratory Tests Test 11/04/20 16:15 11/04/20 17:10 11/04/20 20:56 11/05/20 06:35 Urine Collection Type Unknown Urine Color Yellow Urine Clarity Clear Urine pH 5.0 (<5.0-8.0) Urine Specific [place] 1.010 (1.000-1.030) Urine Protein Negative mg/dL (NEG-TRACE) Urine Glucose (UA) Negative mg/dL (NEG) Urine Ketones (Stick) Negative mg/dL (NEG) Urine Blood Negative (NEG) Urine Nitrite Negative (NEG) Urine Bilirubin Negative (NEG) Urine Urobilinogen Dipstick 0.2 mg/dL (0.2 mg/dL) Urine Leukocyte Esterase Negative (NEG) Urine RBC Occ /HPF (0-2) Urine WBC 1-4 /HPF (0-4) Urine Squamous Epithelial Cells Few /LPF Urine Bacteria 0 /HPF (0-FEW) Glucose (Fingerstick) 72 mg/dL (70-99) 234 mg/dL (70-99) Sodium Level 136 mmol/L (136-145) Potassium Level 5.5 mmol/L (3.5-5.1) Chloride Level 105 mmol/L (98-107) Carbon Dioxide Level 26 mmol/L (21-32) Anion Gap 5 (6-14) Blood Urea Nitrogen 50 mg/dL (8-26) Creatinine 2.2 mg/dL (0.7-1.3) Estimated GFR (Cockcroft-Gault) 37.7 Glucose Level 179 mg/dL (70-99) Calcium Level 8.5 mg/dL (8.5-10.1) Test 11/05/20 07:47 11/05/20 11:57 Glucose (Fingerstick) 170 mg/dL (70-99) 151 mg/dL (70-99) Results All relevant outside records, renal labs, imaging studies, telemetry/EKG's were reviewed. Justicifation of Admission Dx: Justifications for Admission: Justification of Admission Dx: N/A OSWALDO MOORE MD Nov 05, 2020 13:32
[2020-11-05 15:00] VITALS: BP 134/67
--- NOTE | 2020-11-05 15:53 | PDOC ---
[employer] PROGRESS NOTE Date of Service DOS: DATE: 11/05/20 TIME: 15:46 Chief Complaint Chief Complaint impression Acute respiratory failure with hypoxia Acute diastolic heart failure (CHF) aortic stenosis Elevated brain natriuretic peptide (BNP) level Pulmonary HTN , severe due to cocaine abuse CKD Normocytic anemia Hypertensive urgency moderate mitral regurgitation. Right breast mass Malnutrition normocytic anemia CKD stage 3 B- Seen by [employer] renal . Cr was at his baseline at [facility] Peripheral neuropathy, most likely from diabetes exacerbated by acute metabolic issues including anemia and renal failure. Consider acute inflammatory demyelinating neuropathy, 2-11 remains SOA, using bipap at hs poor prognosis due to cocaine abuse 2-12 possibility of visiting with the Pulmonary Hypertension Clinic at [facility]. HE HAS NOT FOLLOWED UP, may benefit from hospice if remains noncompliant and continues cocaine usage 2-13 transfused today will consult GI ? EGD, AM LABS, IV PROTONIX 2-14 pos urine drug screen for cocaine ,, ct penis, cardiac cath in am mod penile edema 28 MIN pt exam, chart review, > 50% of time spent with exam, chart review, pt care coordination History of Present Illness History of Present Illness 11/05: Patient seen and evaluated. Afebrile. Extremely dyspneic today. UA obtained yesterday negative for acute infection. We will continue to diurese with Bumex 1 mg p.o. twice daily. Continue to monitor kidney function. Continue to monitor I's and O's. Discussed with patient, he really needs skilled. 11/04: Patient seen and evaluated. Afebrile. Patient positive for cocaine and PCP in hospital. Will he does admit to doing cocaine prior to admission he still denies using cocaine while in the hospital. Patient's cousin is in room who can verify his claims. Noncompliant with cardiac diet. Fluctuating blood sugars with some in low 50s. Will adjust insulin medication. Notes improvement in penile edema. Still complains of some dysuria. Possibly secondary to having Alvarez catheter and. Will obtain UA. Breathing treatments as needed. We will continue to diurese. Recommending acute rehab but if insurance does not cover, will need home health at minimum. Discussed with RN. 11/03 , discussed his urine drug screen from 10/29, where he tested positive to cocaine and PCP - he denies vehemently and stared me down in a weird way./ I discussed that guys who do cocaine dont usually live past age 56. He was mad and wanted me to "make him better" - I think his ability to improve is going to be limited 11-02 Patient seen and evaluated. Denies chest pain or shortness of breath. Ne t fluid balance continues to be negative. Creatinine continues to be stable around 2.4. Continue diuresis. Receiving Rocephin prophylactically for penile edema. 11-01 Patient seen and evaluated. Denies chest pain. He had left heart cath yesterday showing elevated biventricular filling pressures, moderate pulmonary pretension due to diastolic dysfunction, cor pulmonale. He was recommended to continue aggressive diuresis and monitor renal function. Discussed weight loss and treatment of ROXANNE. 10-31 Seen and evaluated. Still c/o intemittent chesty pain. CT penis yesterday showed soft tissue edema involving the penis scrotum, thought to be related to volume overload given diffuse soft tissue anasarca. LHC today. Discussed with RN. 10-30 CATH IN AM,, moderate penile edema, perhaps related to ascites, will obtain ct penis and scrotum 10-29 remains anemic after one unit, consulted GI , NPO possible PUD , CT ABD, PELVIS 12 cr 2.5, transfused, D/W RN, AM CBC 2-11 remains SOA, using cpap at hs poor prognosis due to cocaine abuse, abg today 2-10 Peripheral neuropathy, most likely from diabetes rule out other causes, exacerbated by acute metabolic issues including anemia and renal failure. Consider acute inflammatory demyelinating neuropathy, D/W RN 10/25 - Pt is in moderate distress, states he is profoundly weak and is eager to get to the bottom on this problem. Discussed his continue compliance with cpap machine. Mr Moran is a 54yo M w/ PMHx Diabetes-Type II, High Cholesterol, Hypertension , Pancreatitis, CKD 4, presents to the ER with complaint of worsening shortness of breath of the past 3 days. He reports associated intermittent chest pain and bilateral lower extremity swelling. States his symptoms are worse with exertion. Upon arrival in the ED his BNP was 3029. He was placed on BiPAP given IV morphine with improvement of symptoms. States he has not taken any of his home medications today. He does report a tender lump in his right breast for the past 3 weeks, reports a family history of breast cancer. He denies any fever, sick contacts, or known COVID-19 exposure. Will admit patient for further medical management. 10/21: Patient seen and evaluated. Improved on BiPAP overnight. Afebrile, denies chest pain. Blood pressure better controlled. CBG 323 this morning. Of note patient did order two trays of nondiabetic meals, and had fried chicken delivered to his room last night. Discussed importance of cardiac and diabetic diet for his heart health. Continue to diurese with Lasix. Echocardiogram and ultrasound right breast pending. If appropriately diuresed and no concerning findings on right breast ultrasound, Vitals/I&O Vitals/I&O: Vital Signs Date Time Temp Pulse Resp B/P (MAP) Pulse Ox O2 Delivery O2 Flow Rate FiO2 11/05/20 15:37 70 11/05/20 11:00 97.8 24 152/50 (84) 98 Nasal Cannula 2.0 97.8 I & O 11/04/20 11/04/20 11/05/20 15:00 23:00 07:00 Intake Total 298 ml 680 ml 240 ml Output Total 801 ml 800 ml 800 ml Balance -503 ml -120 ml -560 ml Physical Exam General: No acute distress Heart: Regular rate Lungs: Wheezing, Crackles Abdomen: Normal bowel sounds Extremities: No cyanosis Skin: No breakdown, No significant lesion Labs Labs: Laboratory Tests Test 11/04/20 16:15 11/04/20 17:10 11/04/20 20:56 11/05/20 06:35 Urine Collection Type Unknown Urine Color Yellow Urine Clarity Clear Urine pH 5.0 (<5.0-8.0) Urine Specific [place] 1.010 (1.000-1.030) Urine Protein Negative mg/dL (NEG-TRACE) Urine Glucose (UA) Negative mg/dL (NEG) Urine Ketones (Stick) Negative mg/dL (NEG) Urine Blood Negative (NEG) Urine Nitrite Negative (NEG) Urine Bilirubin Negative (NEG) Urine Urobilinogen Dipstick 0.2 mg/dL (0.2 mg/dL) Urine Leukocyte Esterase Negative (NEG) Urine RBC Occ /HPF (0-2) Urine WBC 1-4 /HPF (0-4) Urine Squamous Epithelial Cells Few /LPF Urine Bacteria 0 /HPF (0-FEW) Glucose (Fingerstick) 72 mg/dL (70-99) 234 mg/dL (70-99) Sodium Level 136 mmol/L (136-145) Potassium Level 5.5 mmol/L (3.5-5.1) Chloride Level 105 mmol/L (98-107) Carbon Dioxide Level 26 mmol/L (21-32) Anion Gap 5 (6-14) Blood Urea Nitrogen 50 mg/dL (8-26) Creatinine 2.2 mg/dL (0.7-1.3) Estimated GFR (Cockcroft-Gault) 37.7 Glucose Level 179 mg/dL (70-99) Calcium Level 8.5 mg/dL (8.5-10.1) Test 11/05/20 07:47 11/05/20 11:57 Glucose (Fingerstick) 170 mg/dL (70-99) 151 mg/dL (70-99) Assessment and Plan Assessmemt and Plan Problems Medical Problems: (1) Chest pain Status: Acute (2) CHF exacerbation Status: Acute (3) HTN (hypertension) Status: Acute (4) Person under investigation for COVID-19 Status: Acute Comment Review of Relevant I have reviewed the following items karissa (where applicable) has been applied. Medications: Current Medications Medications (Trade) Dose Ordered Sig/Kiera Route PRN Reason Start Time Stop Time Status Last Admin Dose Admin Insulin Glargine (Lantus Syringe) 38 unit QHS SQ 11/04/20 21:00 11/04/20 21:07 Insulin Human Lispro (HumaLOG) 13 units TIDWMEALS SQ 11/04/20 17:00 11/05/20 12:52 Sodium Polystyrene Sulfonate (Kayexalate) 45 gm 1X ONCE PO 11/05/20 13:00 11/05/20 13:01 DC 11/05/20 15:38 Justifications for Admission Other Justification Acute respiratory failure with hypoxia, acute diastolic CHF exacerbation, right breast mass ASIA GLYNN MD Nov 05, 2020 15:53
--- NOTE | 2020-11-05 17:23 | NUR ---
Nursing: Patient refused Kayexalate. I explained the reason it was ordered. Patient said he would take it in the morning.
[2020-11-05 19:45] VITALS: BP 135/56
[2020-11-05] MEDS: PATCH REMOVAL. MC SCH (21:00)
[2020-11-05] MEDS: ATORVASTATIN CALCIUM 20 MG TABLET PO SCH (21:36)
[2020-11-05] MEDS: INSULIN GLARGINE SYRINGE. SQ SCH (21:41)
[2020-11-05 23:23] VITALS: BP 129/47
[2020-11-06 03:55] VITALS: BP 157/67
[2020-11-06] MEDS: MORPHINE SULFATE 4 MG/ML VIAL. IV PRN ×3 (06:31→21:37)
[2020-11-06 06:55] LABS: CALCIUM 8.3 mg/dL (8.5-10.1); CREATININE 2.3 mg/dL (0.7-1.3); GFR 35.8; POTASSIUM 5.6 mmol/L (3.5-5.1)
[2020-11-06 07:00] VITALS: BP 186/65
[2020-11-06 07:18] LABS: BASO # 0.1 x10^3/uL (0.0-0.2); BASO % 1 % (0-3); EOS # 0.2 x10^3/uL (0.0-0.7); EOS % 4 % (0-3); HEMOGLOBIN 7.8 g/dL (13.0-17.5); LYMPH # 0.9 x10^3/uL (1.0-4.8); LYMPH % 17 % (24-48); MEAN CORPUSCULAR HEMOGLOBIN 28 pg (25-35); MEAN CORPUSCULAR HGB CONC 31 g/dL (31-37); MEAN CORPUSCULAR VOLUME 89 fL (79-100); MONO # 0.4 x10^3/uL (0.0-1.1); MONO % 7 % (0-9); NEUT # 3.5 x10^3/uL (1.8-7.7); NEUT % 70 % (31-73); PLATELET COUNT 264 x10^3/uL (140-400); RED BLOOD COUNT 2.83 x10^6/uL (4.30-5.70); RED CELL DISTRIBUTION WIDTH 15.4 % (11.5-14.5)
[2020-11-06] MEDS: DULoxetine HCL 30 MG CAPSULE.DR PO SCH (08:46)
[2020-11-06] MEDS: GABAPENTIN 300 MG CAPSULE. PO SCH ×3 (08:46→20:55)
[2020-11-06] MEDS: ASPIRIN CHEWABLE 81 MG TABLET. PO SCH (08:46)
[2020-11-06] MEDS: LIDOCAINE (700MG/PATCH) PATCH. TD SCH (08:46)
[2020-11-06] MEDS: BUMETANIDE 1 MG TABLET. PO SCH ×2 (08:46→13:59)
[2020-11-06] MEDS: ISOSORBIDE DINITRATE 10 MG TABLET. PO SCH ×3 (08:47→20:55)
[2020-11-06] MEDS: IRON POLYSACCHARIDE COMPLEX 150 MG CAPSULE PO SCH (08:47)
[2020-11-06] MEDS: amLODIPine BESYLATE 10 MG TABLET PO SCH (08:47)
[2020-11-06] MEDS: metOLazone 2.5 MG TABLET PO SCH (08:47)
[2020-11-06] MEDS: CARVEDILOL 12.5 MG TABLET. PO SCH ×2 (08:48→17:18)
[2020-11-06] MEDS: CLOPIDOGREL BISULFATE 75 MG TABLET PO SCH (08:48)
[2020-11-06] MEDS: TAMSULOSIN 0.4 MG CAP.ER.24H. PO SCH (08:48)
[2020-11-06] MEDS: PANTOPRAZOLE 40 MG TABLET.DR. PO SCH ×2 (08:48→17:17)
[2020-11-06] MEDS: INSULIN LISPRO 300 UNITS/3 ML VIAL. SQ SCH ×3 (08:57→17:22)
[2020-11-06] MEDS ORDERED: SODIUM POLYSTYRENE SULFON/SORB 15 GM/60 ML ORAL.SUSP. PO ONE (10:00)
[2020-11-06 11:00] VITALS: BP 140/46
--- NOTE | 2020-11-06 12:16 | PDOC ---
DATE OF SERVICE: DOS: DATE: 11/06/20 TIME: 12:13 SUBJECTIVE ROS Follow-up for CKD and hyperkalemia Patient refused to Kayexalate yesterday, took it this morning OBJECTIVE Vital Signs Vital Signs Date Time Temp Pulse Resp B/P (MAP) Pulse Ox O2 Delivery O2 Flow Rate FiO2 11/06/20 11:00 97.8 63 22 140/46 (77) 96 Nasal Cannula 3.0 97.8 I & 0 Intake and Output 11/06/20 07:00 Intake Total 1150 ml Output Total 1270 ml Balance -120 ml Intake Oral 1150 ml Output Urine Total 1270 ml # Voids 2 # Bowel Movements 1 PHYSICAL EXAM Physical Exam GEN: Awake, Oriented x 2, In no distress, somewhat obese -[place] Citizen gentleman EYES: Vision Unchanged, Conjunctiva Normal EN: No EN Drainage, Mucous Membranes moist NECK: no JVD, no JVP, Supple, no Thyromegaly CVS: S1S2, soft Murmur, No Gallop, No Rub,+ Edema RESP: Few basal Rales, no rhonchi, no Acc. Muscle Use GI: BS + ve, NO Bruit, Non Tender, obese versus distended : no CVA tenderness, no Suprapubic Tenderness DIAGNOSIS/ASSESSMENT Assessment & Plan CKD STAGE 3B WITH CR OF 2.0 at baseline. Current levels may be his new baseline in the setting of known presumed diabetic hypertensive nephrosclerosis plus drug abuse associated nephrosclerosis current creatinine pretty close to baseline. MARQUISE with ATN now resolved HYPERKALEMIA: Persistent despite being on metolazone. Hence unable to check urine potassium. Received one-time Kayexalate this morning. Ordered venous pH along with a.m. labs which is not available hence ABG will be ordered. Cortisol level also ordered. LDH uric acid and CPK will be ordered to rule out cell lysis ACUTE ON CHRONIC DIASTOLIC CHF continue diuresis as tolerated DRUG ABUSE-COCAINE ANEMIA: Previously iron deficient, unclear if patient has low-grade GI bleed COMMENT/RELEVANT DATA Meds Current Medications Medications (Trade) Dose Ordered Sig/Kiera Start Time Stop Time Status Last Admin Dose Admin Acetaminophen (Tylenol) 650 mg PRN Q6HRS PRN 10/20/20 16:15 10/25/20 14:19 650 MG Acetaminophen/ Hydrocodone Bitart (Lortab 5/325) 1 tab PRN Q6HRS PRN 10/31/20 12:30 11/05/20 21:34 1 TAB Al Hydroxide/Mg Hydroxide (Mylanta Plus Xs) 30 ml PRN Q3HRS PRN 10/20/20 16:15 10/31/20 12:38 DC Albuterol Sulfate (Ventolin Neb Soln) 2.5 mg PRN Q6HRS PRN 11/04/20 13:00 11/04/20 16:05 2.5 MG Amlodipine Besylate (Norvasc) 10 mg DAILY 10/21/20 09:00 11/06/20 08:47 10 MG Aspirin (Aspirin Chewable) 81 mg [id number] 10/21/20 08:00 11/06/20 08:46 81 MG Atorvastatin Calcium (Lipitor) 20 mg QHS 11/02/20 21:00 11/05/20 21:36 20 MG Bisacodyl (Dulcolax Supp) 10 mg PRN DAILY PRN 10/20/20 16:15 Bumetanide (Bumex) 1 mg [id number] 11/06/20 09:00 11/06/20 08:46 1 MG Calcium Carbonate/ Glycine (Tums) 500 mg PRN Q3HRS PRN 10/20/20 16:15 Carvedilol (Coreg) 25 mg BIDWMEALS 10/20/20 17:30 11/06/20 08:48 25 MG Ceftriaxone Sodium (Rocephin) 1 gm Q24H 10/30/20 21:00 11/04/20 14:58 DC 11/03/20 21:06 1 GM Clopidogrel Bisulfate (Plavix) 75 mg DAILY 10/21/20 09:00 11/06/20 08:48 75 MG Dextrose (Dextrose 50%-Water Syringe) 12.5 gm PRN Q15MIN PRN 11/04/20 15:15 UNV Duloxetine HCl (Cymbalta) 60 mg DAILY 10/28/20 09:00 11/06/20 08:46 60 MG Fentanyl Citrate (Fentanyl 2ml Vial) 100 mcg 1X ONCE 10/31/20 12:30 10/31/20 12:32 DC 10/31/20 13:35 50 MCG Furosemide (Lasix) 40 mg 1X ONCE 11/04/20 12:00 11/04/20 12:01 DC 11/04/20 12:13 40 MG Gabapentin (Neurontin) 300 mg TID 10/20/20 21:00 11/06/20 08:46 300 MG Heparin Sodium (Porcine) (Heparin Sodium) 5,000 unit Q8HRS 11/06/20 14:00 Heparin Sodium/ Sodium Chloride (HEPARIN for ARTERIAL LINE FLUSH) 1,000 unit 1X ONCE 10/31/20 12:30 10/31/20 12:32 DC 10/31/20 13:35 1,000 UNIT Hydralazine HCl (Apresoline Inj) 10 mg PRN Q20MIN PRN 10/20/20 15:30 10/20/20 16:28 10 MG Hydralazine HCl (Apresoline) 100 mg TID 10/20/20 21:00 11/06/20 08:48 100 MG Insulin Glargine (Lantus Syringe) 38 unit QHS 11/04/20 21:00 11/05/20 21:41 38 UNIT Insulin Human Lispro (HumaLOG) 13 units TIDWMEALS 11/04/20 17:00 11/06/20 08:57 13 UNITS Isosorbide Dinitrate (Isordil) 5 mg TID 10/20/20 21:00 11/06/20 08:47 5 MG Lactulose (Lactulose) 20 gm 1X ONCE 10/26/20 10:30 10/26/20 10:31 DC 10/26/20 12:47 20 GM Lidocaine (Lidoderm) 2 patch DAILY 10/24/20 09:00 11/06/20 08:46 2 PATCH Lidocaine HCl (Glydo (Lidocaine) Jelly) 1 nathalie 1X ONCE 11/01/20 02:30 11/01/20 02:31 DC Lidocaine HCl (Lidocaine 1% 20ml Vial) 20 ml 1X ONCE 10/31/20 12:30 10/31/20 12:32 DC 10/31/20 13:34 6 ML Lorazepam (Ativan Inj) 1 mg PRN Q4HRS PRN 10/20/20 17:30 10/22/20 11:57 1 MG Magnesium Hydroxide (Milk Of Magnesia) 2,400 mg PRN Q12HR PRN 10/20/20 16:15 10/31/20 12:37 DC 10/22/20 06:11 2,400 MG Metolazone (Zaroxolyn) 2.5 mg DAILY 11/02/20 14:00 11/06/20 08:47 2.5 MG Midazolam HCl (Versed) 2 mg 1X ONCE 10/31/20 12:30 10/31/20 12:32 DC 10/31/20 13:35 2 MG Miscellaneous (Lidoderm Patch Removal) 1 ea QHS 10/24/20 21:00 11/04/20 20:50 1 EA Morphine Sulfate (Morphine Sulfate) 4 mg 1X ONCE 10/30/20 22:00 10/30/20 22:01 DC 10/30/20 22:00 4 MG Nitroglycerin (Nitro-Bid Oint) 1 inch 1X ONCE 10/20/20 13:15 10/20/20 13:16 DC 10/20/20 13:22 1 INCH Ondansetron HCl (Zofran) 4 mg PRN Q6HRS PRN 10/20/20 16:15 10/22/20 11:57 4 MG Oxycodone HCl (Roxicodone) 10 mg 1X ONCE 11/03/20 20:00 11/03/20 20:05 DC 11/03/20 20:49 10 MG Pantoprazole Sodium (Protonix) 40 mg BIDAC 10/20/20 17:30 11/06/20 08:48 40 MG Polysaccharide Iron Complex (Niferex 150) 150 mg DAILY 10/24/20 14:00 11/06/20 08:47 150 MG Senna/Docusate Sodium (Senna Plus) 2 tab PRN QEVNG PRN 10/20/20 17:30 Sodium Polystyrene Sulfonate (Kayexalate) 45 gm 1X ONCE 11/06/20 10:00 11/06/20 10:01 DC 11/06/20 09:38 45 GM Sodium Chloride 1,000 ml @ 75 mls/hr [id number] 10/25/20 14:00 10/30/20 13:30 DC 10/28/20 20:48 75 MLS/HR Spironolactone (Aldactone) 25 mg DAILY 10/21/20 09:00 10/21/20 14:06 DC 10/21/20 08:52 25 MG Tamsulosin HCl (Flomax) 0.4 mg DAILY 10/21/20 09:00 11/06/20 08:48 0.4 MG Tramadol HCl (Ultram) 50 mg PRN Q6HRS PRN 10/20/20 16:30 10/30/20 20:36 DC 10/24/20 08:25 50 MG Zolpidem Tartrate (Ambien) 5 mg PRN QHS PRN 10/20/20 16:15 11/02/20 21:45 5 MG Lab Laboratory Tests Test 11/05/20 16:51 11/05/20 21:31 11/06/20 06:20 11/06/20 08:21 Glucose (Fingerstick) 104 mg/dL (70-99) 170 mg/dL (70-99) 165 mg/dL (70-99) White Blood Count 5.0 x10^3/uL (4.0-11.0) Red Blood Count 2.83 x10^6/uL (4.30-5.70) Hemoglobin 7.8 g/dL (13.0-17.5) Hematocrit 25.0 % (39.0-53.0) Mean Corpuscular Volume 89 fL (79-100) Mean Corpuscular Hemoglobin 28 pg (25-35) Mean Corpuscular Hemoglobin Concent 31 g/dL (31-37) Red Cell Distribution Width 15.4 % (11.5-14.5) Platelet Count 264 x10^3/uL (140-400) Neutrophils (%) (Auto) 70 % (31-73) Lymphocytes (%) (Auto) 17 % (24-48) Monocytes (%) (Auto) 7 % (0-9) Eosinophils (%) (Auto) 4 % (0-3) Basophils (%) (Auto) 1 % (0-3) Neutrophils # (Auto) 3.5 x10^3/uL (1.8-7.7) Lymphocytes # (Auto) 0.9 x10^3/uL (1.0-4.8) Monocytes # (Auto) 0.4 x10^3/uL (0.0-1.1) Eosinophils # (Auto) 0.2 x10^3/uL (0.0-0.7) Basophils # (Auto) 0.1 x10^3/uL (0.0-0.2) Sodium Level 139 mmol/L (136-145) Potassium Level 5.6 mmol/L (3.5-5.1) Chloride Level 106 mmol/L (98-107) Carbon Dioxide Level 26 mmol/L (21-32) Anion Gap 7 (6-14) Blood Urea Nitrogen 49 mg/dL (8-26) Creatinine 2.3 mg/dL (0.7-1.3) Estimated GFR (Cockcroft-Gault) 35.8 Glucose Level 170 mg/dL (70-99) Calcium Level 8.3 mg/dL (8.5-10.1) Test 11/06/20 12:04 Glucose (Fingerstick) 91 mg/dL (70-99) Results All relevant outside records, renal labs, imaging studies, telemetry/EKG's were reviewed. Justicifation of Admission Dx: Justifications for Admission: Justification of Admission Dx: N/A OSWALDO MOORE MD Nov 06, 2020 12:16
[2020-11-06 12:52] LABS: URIC ACID 8.5 mg/dL (3.5-7.2)
[2020-11-06 13:05] LABS: BASE EXCESS ABG -2 mmol/L (-3-3); FIO2 ABG 3L NC; HCO3 ABG 24 mmol/L (21-28); PCO2 ABG 42 mmHg (35-46); PO2 ABG 90 mmHg (75-108); SAT O2 ABG 97 % (92-99)
[2020-11-06] MEDS: HEPARIN for SUB-Q USE 5,000 UNIT/ML VIAL. SQ SCH ×2 (13:57→21:03)
[2020-11-06 15:00] VITALS: BP 189/75
--- NOTE | 2020-11-06 15:12 | PDOC ---
PROGRESS NOTES Date of Service: DATE: 11/06/20 TIME: 15:12 Chief Complaint Chief Complaint impression Acute respiratory failure with hypoxia Acute diastolic heart failure (CHF) aortic stenosis Elevated brain natriuretic peptide (BNP) level Pulmonary HTN , severe due to cocaine abuse CKD Normocytic anemia Hypertensive urgency moderate mitral regurgitation. Right breast mass Malnutrition normocytic anemia CKD stage 3 B- Seen by BOBBIN TRUCKER renal . Cr was at his baseline at Present[facility] Peripheral neuropathy, most likely from diabetes exacerbated by acute metabolic issues including anemia and renal failure. Consider acute inflammatory demyelinating neuropathy, 2-11 remains SOA, using bipap at hs poor prognosis due to cocaine abuse 2-12 possibility of visiting with the Pulmonary Hypertension Clinic at [facility]. HE HAS NOT FOLLOWED UP, may benefit from hospice if remains noncompliant and continues cocaine usage 2-13 transfused today will consult GI ? EGD, AM LABS, IV PROTONIX 2-14 pos urine drug screen for cocaine ,, ct penis, cardiac cath in am mod penile edema 28 MIN pt exam, chart review, > 50% of time spent with exam, chart review, pt care coordination History of Present Illness History of Present Illness 11/06. right ankle pain and swelling, will ultrasound, heparin 5k tid cont other, OOB to chair, cont PT and OT, he looks a lot better, may be able to DC soon 11/05: Patient seen and evaluated. Afebrile. Extremely dyspneic today. UA obtained yesterday negative for acute infection. We will continue to diurese with Bumex 1 mg p.o. twice daily. Continue to monitor kidney function. Continue to monitor I's and O's. Discussed with patient, he really needs skilled. 11/04: Patient seen and evaluated. Afebrile. Patient positive for cocaine and PCP in hospital. Will he does admit to doing cocaine prior to admission he still denies using cocaine while in the hospital. Patient's cousin is in room who can verify his claims. Noncompliant with cardiac diet. Fluctuating blood sugars with some in low 50s. Will adjust insulin medication. Notes improvement in penile edema. Still complains of some dysuria. Possibly secondary to having Alvarez catheter and. Will obtain UA. Breathing treatments as needed. We will continue to diurese. Recommending acute rehab but if insurance does not cover, will need home health at minimum. Discussed with RN. 11/03 , discussed his urine drug screen from 10/29, where he tested positive to cocaine and PCP - he denies vehemently and stared me down in a weird way./ I discussed that guys who do cocaine dont usually live past age 56. He was mad and wanted me to "make him better" - I think his ability to improve is going to be limited 11-02 Patient seen and evaluated. Denies chest pain or shortness of breath. Net fluid balance continues to be negative. Creatinine continues to be stable around 2.4. Continue diuresis. Receiving Rocephin prophylactically for penile edema. 11-01 Patient seen and evaluated. Denies chest pain. He had left heart cath yesterday showing elevated biventricular filling pressures, moderate pulmonary pretension due to diastolic dysfunction, cor pulmonale. He was recommended to continue aggressive diuresis and monitor renal function. Discussed weight loss and treatment of ROXANNE. 10-31 Seen and evaluated. Still c/o intemittent chesty pain. CT penis yesterday showed soft tissue edema involving the penis scrotum, thought to be related to volume overload given diffuse soft tissue anasarca. LHC today. Discussed with RN. 10-30 CATH IN AM,, moderate penile edema, perhaps related to ascites, will obtain ct penis and scrotum 10-29 remains anemic after one unit, consulted GI , NPO possible PUD , CT ABD, PELVIS 10-28 cr 2.5, transfused, D/W RN, AM CBC 2- remains SOA, using cpap at hs poor prognosis due to cocaine abuse, abg today 2-10 Peripheral neuropathy, most likely from diabetes rule out other causes, exacerbated by acute metabolic issues including anemia and renal failure. Consider acute inflammatory demyelinating neuropathy, D/W RN 10/25 - Pt is in moderate distress, states he is profoundly weak and is eager to get to the bottom on this problem. Discussed his continue compliance with cpap machine. Mr Moran is a 54yo M w/ PMHx Diabetes-Type II, High Cholesterol, Hype rtension, Pancreatitis, CKD 4, presents to the ER with complaint of worsening shortness of breath of the past 3 days. He reports associated intermittent chest pain and bilateral lower extremity swelling. States his symptoms are worse with exertion. Upon arrival in the ED his BNP was 3029. He was placed on BiPAP given IV morphine with improvement of symptoms. States he has not taken any of his home medications today. He does report a tender lump in his right breast for the past 3 weeks, reports a family history of breast cancer. He denies any fever, sick contacts, or known COVID-19 exposure. Will admit patient for further medical management. 10/21: Patient seen and evaluated. Improved on BiPAP overnight. Afebrile, denies chest pain. Blood pressure better controlled. CBG 323 this morning. Of note patient did order two trays of nondiabetic meals, and had fried chicken delive red to his room last night. Discussed importance of cardiac and diabetic diet for his heart health. Continue to diurese with Lasix. Echocardiogram and ultrasound right breast pending. If appropriately diuresed and no concerning findings on right breast ultrasound, Vitals Vitals Vital Signs Date Time Temp Pulse Resp B/P (MAP) Pulse Ox O2 Delivery O2 Flow Rate FiO2 11/06/20 13:52 67 11/06/20 11:00 97.8 22 140/46 (77) 96 Nasal Cannula 3.0 97.8 Physical Exam General: No acute distress Heart: Regular rate Lungs: Wheezing, Crackles Abdomen: Normal bowel sounds Extremities: No cyanosis Skin: No breakdown, No significant lesion Labs LABS Laboratory Tests Test 11/05/20 16:51 11/05/20 21:31 11/06/20 06:20 11/06/20 08:21 Glucose (Fingerstick) 104 mg/dL (70-99) 170 mg/dL (70-99) 165 mg/dL (70-99) White Blood Count 5.0 x10^3/uL (4.0-11.0) Red Blood Count 2.83 x10^6/uL (4.30-5.70) Hemoglobin 7.8 g/dL (13.0-17.5) Hematocrit 25.0 % (39.0-53.0) Mean Corpuscular Volume 89 fL (79-100) Mean Corpuscular Hemoglobin 28 pg (25-35) Mean Corpuscular Hemoglobin Concent 31 g/dL (31-37) Red Cell Distribution Width 15.4 % (11.5-14.5) Platelet Count 264 x10^3/uL (140-400) Neutrophils (%) (Auto) 70 % (31-73) Lymphocytes (%) (Auto) 17 % (24-48) Monocytes (%) (Auto) 7 % (0-9) Eosinophils (%) (Auto) 4 % (0-3) Basophils (%) (Auto) 1 % (0-3) Neutrophils # (Auto) 3.5 x10^3/uL (1.8-7.7) Lymphocytes # (Auto) 0.9 x10^3/uL (1.0-4.8) Monocytes # (Auto) 0.4 x10^3/uL (0.0-1.1) Eosinophils # (Auto) 0.2 x10^3/uL (0.0-0.7) Basophils # (Auto) 0.1 x10^3/uL (0.0-0.2) Sodium Level 139 mmol/L (136-145) Potassium Level 5.6 mmol/L (3.5-5.1) Chloride Level 106 mmol/L (98-107) Carbon Dioxide Level 26 mmol/L (21-32) Anion Gap 7 (6-14) Blood Urea Nitrogen 49 mg/dL (8-26) Creatinine 2.3 mg/dL (0.7-1.3) Estimated GFR (Cockcroft-Gault) 35.8 Glucose Level 170 mg/dL (70-99) Uric Acid 8.5 mg/dL (3.5-7.2) Calcium Level 8.3 mg/dL (8.5-10.1) Lactate Dehydrogenase 223 U/L (85-227) Test 11/06/20 12:04 11/06/20 13:00 Glucose (Fingerstick) 91 mg/dL (70-99) O2 Saturation 97 % (92-99) Arterial Blood pH 7.37 (7.35-7.45) Arterial Blood pCO2 at Patient Temp 42 mmHg (35-46) Arterial Blood pO2 at Patient Temp 90 mmHg (75-108) Arterial Blood HCO3 24 mmol/L (21-28) Arterial Blood Base Excess -2 mmol/L (-3-3) FiO2 3l nc Assessment and Plan Assessmemt and Plan Problems Medical Problems: (1) Chest pain Status: Acute (2) CHF exacerbation Status: Acute (3) HTN (hypertension) Status: Acute (4) Person under investigation for COVID-19 Status: Acute Comment Review of Relevant I have reviewed the following items karissa (where applicable) has been applied. Labs Laboratory Tests Test 11/04/20 16:15 11/04/20 17:10 11/04/20 20:56 11/05/20 06:35 Urine Collection Type Unknown Urine Color Yellow Urine Clarity Clear Urine pH 5.0 (<5.0-8.0) Urine Specific [place] 1.010 (1.000-1.030) Urine Protein Negative mg/dL (NEG-TRACE) Urine Glucose (UA) Negative mg/dL (NEG) Urine Ketones (Stick) Negative mg/dL (NEG) Urine Blood Negative (NEG) Urine Nitrite Negative (NEG) Urine Bilirubin Negative (NEG) Urine Urobilinogen Dipstick 0.2 mg/dL (0.2 mg/dL) Urine Leukocyte Esterase Negative (NEG) Urine RBC Occ /HPF (0-2) Urine WBC 1-4 /HPF (0-4) Urine Squamous Epithelial Cells Few /LPF Urine Bacteria 0 /HPF (0-FEW) Glucose (Fingerstick) 72 mg/dL (70-99) 234 mg/dL (70-99) Sodium Level 136 mmol/L (136-145) Potassium Level 5.5 mmol/L (3.5-5.1) Chloride Level 105 mmol/L (98-107) Carbon Dioxide Level 26 mmol/L (21-32) Anion Gap 5 (6-14) Blood Urea Nitrogen 50 mg/dL (8-26) Creatinine 2.2 mg/dL (0.7-1.3) Estimated GFR (Cockcroft-Gault) 37.7 Glucose Level 179 mg/dL (70-99) Calcium Level 8.5 mg/dL (8.5-10.1) Test 11/05/20 07:47 11/05/20 11:57 11/05/20 16:51 11/05/20 21:31 Glucose (Fingerstick) 170 mg/dL (70-99) 151 mg/dL (70-99) 104 mg/dL (70-99) 170 mg/dL (70-99) Test 11/06/20 06:20 11/06/20 08:21 11/06/20 12:04 11/06/20 13:00 White Blood Count 5.0 x10^3/uL (4.0-11.0) Red Blood Count 2.83 x10^6/uL (4.30-5.70) Hemoglobin 7.8 g/dL (13.0-17.5) Hematocrit 25.0 % (39.0-53.0) Mean Corpuscular Volume 89 fL (79-100) Mean Corpuscular Hemoglobin 28 pg (25-35) Mean Corpuscular Hemoglobin Concent 31 g/dL (31-37) Red Cell Distribution Width 15.4 % (11.5-14.5) Platelet Count 264 x10^3/uL (140-400) Neutrophils (%) (Auto) 70 % (31-73) Lymphocytes (%) (Auto) 17 % (24-48) Monocytes (%) (Auto) 7 % (0-9) Eosinophils (%) (Auto) 4 % (0-3) Basophils (%) (Auto) 1 % (0-3) Neutrophils # (Auto) 3.5 x10^3/uL (1.8-7.7) Lymphocytes # (Auto) 0.9 x10^3/uL (1.0-4.8) Monocytes # (Auto) 0.4 x10^3/uL (0.0-1.1) Eosinophils # (Auto) 0.2 x10^3/uL (0.0-0.7) Basophils # (Auto) 0.1 x10^3/uL (0.0-0.2) Sodium Level 139 mmol/L (136-145) Potassium Level 5.6 mmol/L (3.5-5.1) Chloride Level 106 mmol/L (98-107) Carbon Dioxide Level 26 mmol/L (21-32) Anion Gap 7 (6-14) Blood Urea Nitrogen 49 mg/dL (8-26) Creatinine 2.3 mg/dL (0.7-1.3) Estimated GFR (Cockcroft-Gault) 35.8 Glucose Level 170 mg/dL (70-99) Uric Acid 8.5 mg/dL (3.5-7.2) Calcium Level 8.3 mg/dL (8.5-10.1) Lactate Dehydrogenase 223 U/L (85-227) Glucose (Fingerstick) 165 mg/dL (70-99) 91 mg/dL (70-99) O2 Saturation 97 % (92-99) Arterial Blood pH 7.37 (7.35-7.45) Arterial Blood pCO2 at Patient Temp 42 mmHg (35-46) Arterial Blood pO2 at Patient Temp 90 mmHg (75-108) Arterial Blood HCO3 24 mmol/L (21-28) Arterial Blood Base Excess -2 mmol/L (-3-3) FiO2 3l nc Laboratory Tests Test 11/05/20 16:51 11/05/20 21:31 11/06/20 06:20 11/06/20 08:21 Glucose (Fingerstick) 104 mg/dL (70-99) 170 mg/dL (70-99) 165 mg/dL (70-99) White Blood Count 5.0 x10^3/uL (4.0-11.0) Red Blood Count 2.83 x10^6/uL (4.30-5.70) Hemoglobin 7.8 g/dL (13.0-17.5) Hematocrit 25.0 % (39.0-53.0) Mean Corpuscular Volume 89 fL (79-100) Mean Corpuscular Hemoglobin 28 pg (25-35) Mean Corpuscular Hemoglobin Concent 31 g/dL (31-37) Red Cell Distribution Width 15.4 % (11.5-14.5) Platelet Count 264 x10^3/uL (140-400) Neutrophils (%) (Auto) 70 % (31-73) Lymphocytes (%) (Auto) 17 % (24-48) Monocytes (%) (Auto) 7 % (0-9) Eosinophils (%) (Auto) 4 % (0-3) Basophils (%) (Auto) 1 % (0-3) Neutrophils # (Auto) 3.5 x10^3/uL (1.8-7.7) Lymphocytes # (Auto) 0.9 x10^3/uL (1.0-4.8) Monocytes # (Auto) 0.4 x10^3/uL (0.0-1.1) Eosinophils # (Auto) 0.2 x10^3/uL (0.0-0.7) Basophils # (Auto) 0.1 x10^3/uL (0.0-0.2) Sodium Level 139 mmol/L (136-145) Potassium Level 5.6 mmol/L (3.5-5.1) Chloride Level 106 mmol/L (98-107) Carbon Dioxide Level 26 mmol/L (21-32) Anion Gap 7 (6-14) Blood Urea Nitrogen 49 mg/dL (8-26) Creatinine 2.3 mg/dL (0.7-1.3) Estimated GFR (Cockcroft-Gault) 35.8 Glucose Level 170 mg/dL (70-99) Uric Acid 8.5 mg/dL (3.5-7.2) Calcium Level 8.3 mg/dL (8.5-10.1) Lactate Dehydrogenase 223 U/L (85-227) Test 11/06/20 12:04 11/06/20 13:00 Glucose (Fingerstick) 91 mg/dL (70-99) O2 Saturation 97 % (92-99) Arterial Blood pH 7.37 (7.35-7.45) Arterial Blood pCO2 at Patient Temp 42 mmHg (35-46) Arterial Blood pO2 at Patient Temp 90 mmHg (75-108) Arterial Blood HCO3 24 mmol/L (21-28) Arterial Blood Base Excess -2 mmol/L (-3-3) FiO2 3l nc Microbiology 10/31/20 Gram Stain - Final, Complete 10/31/20 Aerobic and Anaerobic Culture - Final, Complete 10/30/20 Urine Culture - Final, Complete Medications Current Medications Nitroglycerin (Nitro-Bid Oint) 1 inch 1X ONCE TP Last administered on 10/20/20at 13:22; Start 10/20/20 at 13:15; Stop 10/20/20 at 13:16; Status DC Morphine Sulfate (Morphine Sulfate) 4 mg 1X ONCE IV Last administered on 10/20/20at 13:23; Start 10/20/20 at 13:15; Stop 10/20/20 at 13:16; Status DC Furosemide (Lasix) 80 mg 1X ONCE IVP Last administered on 10/20/20at 16:25; Start 10/20/20 at 15:45; Stop 10/20/20 at 15:46; Status DC Hydralazine HCl (Apresoline Inj) 10 mg PRN Q20MIN PRN IVP ELEVATED BP, SEE COMMENTS Last administered on 10/20/20at 16:28; Start 10/20/20 at 15:30 Furosemide (Lasix) 80 mg [id number] PO Last administered on 10/23/20at 08:11; Start 10/21/20 at 09:00; Stop 10/24/20 at 15:14; Status DC Insulin Human Lispro (HumaLOG) 0-9 UNITS TIDWMEALS SQ Last administered on 11/03/20at 12:31; Start 10/20/20 at 17:00; Stop 11/04/20 at 15:01; Status DC Dextrose (Dextrose 50%-Water Syringe) 12.5 gm PRN Q15MIN PRN IV SEE COMMENTS; Start 10/20/20 at 15:45 Ondansetron HCl (Zofran) 4 mg PRN Q6HRS PRN IVP NAUSEA/VOMITING Last administered on 10/22/20at 11:57; Start 10/20/20 at 16:15 Al Hydroxide/Mg Hydroxide (Mylanta Plus Xs) 30 ml PRN Q3HRS PRN PO HEARTBURN / GAS; Start 10/20/20 at 16:15; Stop 10/31/20 at 12:38; Status DC Calcium Carbonate/ Glycine (Tums) 500 mg PRN Q3HRS PRN PO UPSET STOMACH; Start 10/20/20 at 16:15 Zolpidem Tartrate (Ambien) 5 mg PRN QHS PRN PO INSOMNIA, MAY REPEAT IN 1HR Last administered on 11/02/20at 21:45; Start 10/20/20 at 16:15 Acetaminophen (Tylenol) 650 mg PRN Q6HRS PRN PO Headaches, Temp > 101.5F Last administered on 10/25/20at 14:19; Start 10/20/20 at 16:15 Magnesium Hydroxide (Milk Of Magnesia) 2,400 mg PRN Q12HR PRN PO CONSTIPATION (1ST CHOICE) Last administered on 10/22/20at 06:11; Start 10/20/20 at 16:15; Stop 10/31/20 at 12:37; Status DC Bisacodyl (Dulcolax Supp) 10 mg PRN DAILY PRN [place] CONSTIPATION; Start 10/20/20 at 16:15 Heparin Sodium (Porcine) (Heparin Sodium) 5,000 unit Q8HRS SQ Last administered on 10/29/20at 05:59; Start 10/20/20 at 16:30; Stop 10/29/20 at 07:14; Status DC Morphine Sulfate (Morphine Sulfate) 4 mg PRN Q2HR PRN IV MODERATE TO SEVERE PAIN Last administered on 11/06/20 06:31; Start 10/20/20 at 16:30 Tramadol HCl (Ultram) 50 mg PRN Q6HRS PRN PO MILD TO MODERATE PAIN Last administered on 10/24/20 08:25; Start 10/20/20 at 16:30; Stop 10/30/20 at 20:36; Status DC Amlodipine Besylate (Norvasc) 10 mg DAILY PO Last administered on 11/06/20 08: 47; Start 10/21/20 at 09:00 Aspirin (Aspirin Chewable) 81 mg DAILYWBKFT PO Last administered on 11/06/20 08:46; Start 10/21/20 at 08:00 Clopidogrel Bisulfate (Plavix) 75 mg DAILY PO Last administered on 11/06/20 08:48; Start 10/21/20 at 09:00 Furosemide (Lasix) 80 mg [id number] PO Last administered on 10/21/20 08:54; Start 10/20/20 at 17:30; Stop 10/21/20 at 09:37; Status DC Pantoprazole Sodium (Protonix) 40 mg BIDAC PO Last administered on 11/06/20 08:48; Start 10/20/20 at 17:30 Senna/Docusate Sodium (Senna Plus) 2 tab PRN QEVNG PRN PO CONSTIPATION; Start 10/20/20 at 17:30 Spironolactone (Aldactone) 25 mg DAILY PO Last administered on 10/21/20 08:52; Start 10/21/20 at 09:00; Stop 10/21/20 at 14:06; Status DC Tamsulosin HCl (Flomax) 0.4 mg DAILY PO Last administered on 11/06/20 08:48; Start 10/21/20 at 09:00 Carvedilol (Coreg) 25 mg BIDWMEALS PO Last administered on 11/06/20 08:48; Start 10/20/20 at 17:30 Gabapentin (Neurontin) 300 mg TID PO Last administered on 11/06/20 13:51; Start 10/20/20 at 21:00 Hydralazine HCl (Apresoline) 100 mg TID PO Last administered on 2/21/21at 13:51; Start 10/20/20 at 21:00 Insulin Human Lispro (HumaLOG) 30 units TIDWMEALS SQ Last administered on 11/04/20at 12:00; Start 10/21/20 at 08:00; Stop 11/04/20 at 15:01; Status DC Insulin Glargine (Lantus Syringe) 60 unit QHS SQ Last administered on 10/22/20 21:17; Start 10/20/20 at 21:00; Stop 10/23/20 at 13:07; Status DC Isosorbide Dinitrate (Isordil) 5 mg TID PO Last administered on 11/06/20at 13:52; Start 10/20/20 at 21:00 Atorvastatin Calcium (Lipitor) 80 mg QHS PO Last administered on 10/24/20at 21:42; Start 10/20/20 at 21:00; Stop 10/25/20 at 13:42; Status DC Lorazepam (Ativan Inj) 1 mg PRN Q4HRS PRN IVP ANXIETY / AGITATION Last administered on 10/22/20at 11:57; Start 10/20/20 at 17:30 Insulin Glargine (Lantus Syringe) 70 unit QHS SQ Last administered on 11/03/20at 21:12; Start 10/23/20 at 21:00; Stop 11/04/20 at 15:01; Status DC Lidocaine (Lidoderm) 2 patch DAILY TD Last administered on 11/06/20at 08:46; Start 10/24/20 at 09:00 Miscellaneous (Lidoderm Patch Removal) 1 ea QHS MC Last administered on 11/04/20at 20:50; Start 10/24/20 at 21:00 Polysaccharide Iron Complex (Niferex 150) 150 mg DAILY PO Last administered on 11/06/20at 08:47; Start 10/24/20 at 14:00 Sodium Chloride 1,000 ml @ 75 mls/hr [id number] ONCE IV ; Start 10/25/20 at 11:15; Stop 10/25/20 at 13:42; Status DC Sodium Chloride 1,000 ml @ 75 mls/hr [id number] IV Last administered on 10/28/20at 20:48; Start 10/25/20 at 14:00; Stop 10/30/20 at 13:30; Status DC Duloxetine HCl (Cymbalta) 30 mg DAILY PO Last administered on 10/27/20at 08:03; Start 10/25/20 at 15:00; Stop 10/27/20 at 13:33; Status DC Lactulose (Lactulose) 20 gm 1X ONCE PO Last administered on 10/26/20at 12:47; Start 10/26/20 at 10:30; Stop 10/26/20 at 10:31; Status DC Lactulose (Lactulose) 20 gm 1X ONCE PO Last administered on 10/26/20at 12:47; Start 10/26/20 at 10:30; Stop 10/26/20 at 10:31; Status DC Duloxetine HCl (Cymbalta) 60 mg DAILY PO Last administered on 11/06/20at 08:46; Start 10/28/20 at 09:00 Furosemide (Lasix) 40 mg 1X ONCE IVP Last administered on 10/30/20at 12:37; Start 10/30/20 at 12:15; Stop 10/30/20 at 12:20; Status DC Morphine Sulfate (Morphine Sulfate) 4 mg 1X ONCE IM ; Start 10/30/20 at 20:45; Stop 10/30/20 at 20:46; Status Cancel Ceftriaxone Sodium (Rocephin) 1 gm Q24H IVP Last administered on 11/03/20at 21:06; Start 10/30/20 at 21:00; Stop 11/04/20 at 14:58; Status DC Furosemide (Lasix) 40 mg 1X ONCE IVP Last administered on 10/30/20at 21:00; Start 10/30/20 at 21:00; Stop 10/30/20 at 21:01; Status DC Morphine Sulfate (Morphine Sulfate) 4 mg 1X ONCE IV Last administered on 10/30/20at 22:00; Start 10/30/20 at 22:00; Stop 10/30/20 at 22:01; Status DC Fentanyl Citrate (Fentanyl 2ml Vial) 100 mcg STK-MED ONCE .ROUTE ; Start 10/31/20 at 12:18; Stop 10/31/20 at 12:19; Status DC Midazolam HCl (Versed) 2 mg STK-MED ONCE .ROUTE ; Start 10/31/20 at 12:18; Stop 10/31/20 at 12:19; Status DC Heparin Sodium/ Sodium Chloride 1,000 ml @ As Directed STK-MED ONCE .ROUTE ; Start 10/31/20 at 12:19; Stop 10/31/20 at 12:19; Status DC Lidocaine HCl (Lidocaine 1% 20ml Vial) 20 ml STK-MED ONCE .ROUTE ; Start 10/31/20 at 12:28; Stop 10/31/20 at 12:28; Status DC Heparin Sodium/ Sodium Chloride (HEPARIN for ARTERIAL LINE FLUSH) 1,000 unit 1X ONCE IART Last administered on 10/31/20at 13:35; Start 10/31/20 at 12:30; Stop 10/31/20 at 12:32; Status DC Heparin Sodium/ Sodium Chloride (HEPARIN for ARTERIAL LINE FLUSH) 1,000 unit 1X ONCE IART Last administered on 10/31/20at 13:35; Start 10/31/20 at 12:30; Stop 10/31/20 at 12:32; Status DC Midazolam HCl (Versed) 2 mg 1X ONCE IV Last administered on 10/31/20at 13:35; Start 10/31/20 at 12:30; Stop 10/31/20 at 12:32; Status DC Fentanyl Citrate (Fentanyl 2ml Vial) 100 mcg 1X ONCE IV Last administered on 10/31/20at 13:35; Start 10/31/20 at 12:30; Stop 10/31/20 at 12:32; Status DC Lidocaine HCl (Lidocaine 1% 20ml Vial) 20 ml 1X ONCE INJ Last administered on 10/31/20at 13:34; Start 10/31/20 at 12:30; Stop 10/31/20 at 12:32; Status DC Acetaminophen/ Hydrocodone Bitart (Lortab 5/325) 1 tab PRN Q6HRS PRN PO PAIN Last administered on 11/05/20at 21:34; Start 10/31/20 at 12:30 Furosemide (Lasix) 100 mg STK-MED ONCE .ROUTE ; Start 10/31/20 at 13:19; Stop 10/31/20 at 13:19; Status DC Furosemide (Lasix) 80 mg 1X ONCE IVP Last administered on 10/31/20at 13:36; Start 10/31/20 at 13:30; Stop 10/31/20 at 13:31; Status DC Lidocaine HCl (Glydo (Lidocaine) Jelly) 1 nathalie 1X ONCE MM ; Start 11/01/20 at 02:30; Stop 11/01/20 at 02:31; Status DC Metolazone (Zaroxolyn) 2.5 mg DAILY PO Last administered on 11/06/20at 08:47; Start 11/02/20 at 14:00 Atorvastatin Calcium (Lipitor) 20 mg QHS PO Last administered on 11/05/20at 21: 36; Start 11/02/20 at 21:00 Furosemide (Lasix) 100 mg 1X ONCE IVP ; Start 11/03/20 at 13:15; Stop 11/03/20 at 13:18; Status DC Oxycodone HCl (Roxicodone) 10 mg 1X ONCE PO Last administered on 11/03/20at 20:49; Start 11/03/20 at 20:00; Stop 11/03/20 at 20:05; Status DC Furosemide (Lasix) 100 mg 1X ONCE IVP ; Start 11/04/20 at 09:00; Stop 11/04/20 at 09:01; Status DC Furosemide (Lasix) 40 mg 1X ONCE IVP Last administered on 11/04/20at 12:13; Start 11/04/20 at 12:00; Stop 11/04/20 at 12:01; Status DC Albuterol Sulfate (Ventolin Neb Soln) 2.5 mg PRN Q6HRS PRN NEB SHORTNESS OF BREATH Last administered on 11/04/20at 16:05; Start 11/04/20 at 13:00 Insulin Glargine (Lantus Syringe) 38 unit QHS SQ Last administered on 11/05/20at 21:41; Start 11/04/20 at 21:00 Insulin Human Lispro (HumaLOG) 13 units TIDWMEALS SQ Last administered on 11/06/20at 08:57; Start 11/04/20 at 17:00 Dextrose (Dextrose 50%-Water Syringe) 12.5 gm PRN Q15MIN PRN IV SEE COMMENTS; Start 11/04/20 at 15:15; Status UNV Sodium Polystyrene Sulfonate (Kayexalate) 45 gm 1X ONCE PO ; Start 11/05/20 at 13:00; Stop 11/05/20 at 13:01; Status DC Bumetanide (Bumex) 1 mg [id number] PO Last administered on 11/06/20at 13:59; Start 11/06/20 at 09:00 Sodium Polystyrene Sulfonate (Kayexalate) 45 gm 1X ONCE PO Last administered on 11/06/20at 09:38; Start 11/06/20 at 10:00; Stop 11/06/20 at 10:01; Status DC Heparin Sodium (Porcine) (Heparin Sodium) 5,000 unit Q8HRS SQ Last administered on 11/06/20at 13:57; Start 11/06/20 at 14:00 Active Scripts Active Flomax (Tamsulosin Hcl) 0.4 Mg Cap.er.24h 0.4 Mg PO DAILY Children's Aspirin (Aspirin) 81 Mg Tab.chew 81 Mg PO DAILYWBKFT Reported Senna-Docusate Sodium Tablet (Sennosides/Docusate Sodium) 1 Each Tablet 2 Tab PO PRN QEVNG PRN 5 Days Spironolactone 25 Mg Tablet 25 Mg PO DAILY Vitamin D2 (Ergocalciferol (Vitamin D2)) 1,250 Mcg Capsule 1,250 Mcg PO WEEKLY Lasix (Furosemide) 80 Mg Tablet 80 Mg PO BID Clopidogrel (Clopidogrel Bisulfate) 75 Mg Tablet 75 Mg PO DAILY Carvedilol 25 Mg Tablet 25 Mg PO BIDWMEALS Isosorbide Dinitrate 40 Mg Tablet.er 5 Mg PO TID Gabapentin 600 Mg Tablet 300 Mg PO TID Protonix (Pantoprazole Sodium) 40 Mg Tablet.dr 40 Mg PO BID Hydralazine Hcl 100 Mg Tablet 100 Mg PO TID Amlodipine Besylate 10 Mg Tablet 10 Mg PO DAILY Crestor (Rosuvastatin Calcium) 20 Mg Tablet 20 Mg PO QHS Levemir Flexpen (Insulin Detemir) 100 Unit/1 Ml Insuln.pen 60 Unit SQ HS Novolog Flexpen (Insulin Aspart) 100 Unit/1 Ml Insuln.pen 30 Unit SQ TIDAC Vitals/I & O Vital Sign - Last 24 Hours 11/05/20 11/05/20 11/05/20 11/05/20 15:37 15:37 16:53 19:45 Pulse 70 70 80 62 Resp 20 B/P (MAP) 135/56 (82) Pulse Ox 94 O2 Delivery BiPAP/CPAP 11/05/20 11/05/20 11/05/2021 20:00 21:34 21:35 21:36 Pulse 66 66 B/P (MAP) 135/56 135/56 O2 Delivery Bi-pap Nasal Cannula 11/05/20 11/05/20 11/06/20 11/06/20 22:34 23:23 03:55 06:31 Temp 98.6 97.7 98.6 97.7 Pulse 60 58 Resp 20 21 B/P (MAP) 129/47 (74) 157/67 (97) Pulse Ox 94 97 O2 Delivery BiPAP/CPAP BiPAP/CPAP Room Air BiPAP/CPAP 11/06/20 11/06/20 11/06/20 11/06/20 07:00 08:10 08:47 08:47 Temp 97.9 97.9 Pulse 65 60 60 Resp 20 B/P (MAP) 186/65 (105) Pulse Ox 96 O2 Delivery Nasal Cannula Nasal Cannula O2 Flow Rate 3.0 3.0 11/06/20 11/06/20 11/06/20 11/06/20 08:48 08:48 11:00 13:51 Temp 97.8 97.8 Pulse 60 65 63 65 Resp 22 B/P (MAP) 140/46 (77) Pulse Ox 96 O2 Delivery Nasal Cannula O2 Flow Rate 3.0 11/06/20 13:52 Pulse 67 Intake and Output 11/05/20 11/05/20 11/06/20 15:00 23:00 07:00 Intake Total 450 ml 400 ml 300 ml Output Total 420 ml 300 ml 550 ml Balance 30 ml 100 ml -250 ml Justicifation of Admission Dx: Justifications for Admission: Justification of Admission Dx: N/A PAUL CERRATO MD Nov 06, 2020 15:12
[2020-11-06] MEDS: HYDROcodone/APAP 5/325MG 1 TAB TABLET PO PRN (17:18)
--- NOTE | 2020-11-06 17:47 | RAD ---
INDICATION: Reason: worse swelling right vs. left. / Spl. Instructions: / History: COMPARISON: November 2016 TECHNIQUE: Grayscale, color and doppler ultrasound images were obtained of the right lower extremity venous vasculature. RIGHT: No thrombus identified in the common femoral vein, femoral vein, popliteal vein or visualized calf ve ins. IMPRESSION: * No thrombus identified in deep venous system of right lower extremity. * Edema of the soft tissues. Electronically signed by: James Gonzalez MD (11/06/2020 5:44 PM) [id number]
[2020-11-06 19:00] VITALS: BP 185/69
--- NOTE | 2020-11-06 19:20 | NUR ---
Pt sitting on side of bed assessment completed vss poc explained pt denied pain at this time will resume care and continue to monitor pt.Call light in reach.
[2020-11-06] MEDS: ATORVASTATIN CALCIUM 20 MG TABLET PO SCH (20:54)
[2020-11-06] MEDS: PATCH REMOVAL. MC SCH (20:56)
[2020-11-06] MEDS: INSULIN GLARGINE SYRINGE. SQ SCH (21:03)
[2020-11-06 23:00] VITALS: BP 145/72
[2020-11-07] VITALS (8 sets, daily range): BP systolic 133–199; BP diastolic 46–72
[2020-11-07] MEDS: hydrALAZINE 20 MG/ML VIAL. IVP PRN (03:09)
[2020-11-07] MEDS: MORPHINE SULFATE 4 MG/ML VIAL. IV PRN ×2 (04:59→16:40)
[2020-11-07 05:46] LABS: CALCIUM 8.1 mg/dL (8.5-10.1); CREATININE 2.2 mg/dL (0.7-1.3); GFR 37.7; POTASSIUM 4.8 mmol/L (3.5-5.1)
[2020-11-07] MEDS: PANTOPRAZOLE 40 MG TABLET.DR. PO SCH ×2 (05:48→16:37)
[2020-11-07] MEDS: HEPARIN for SUB-Q USE 5,000 UNIT/ML VIAL. SQ SCH ×4 (05:51→21:26)
[2020-11-07] MEDS: TAMSULOSIN 0.4 MG CAP.ER.24H. PO SCH (08:37)
[2020-11-07] MEDS: amLODIPine BESYLATE 10 MG TABLET PO SCH (08:37)
[2020-11-07] MEDS: CLOPIDOGREL BISULFATE 75 MG TABLET PO SCH (08:37)
[2020-11-07] MEDS: metOLazone 2.5 MG TABLET PO SCH (08:37)
[2020-11-07] MEDS: ASPIRIN CHEWABLE 81 MG TABLET. PO SCH (08:37)
[2020-11-07] MEDS: IRON POLYSACCHARIDE COMPLEX 150 MG CAPSULE PO SCH (08:37)
[2020-11-07] MEDS: GABAPENTIN 300 MG CAPSULE. PO SCH ×3 (08:38→20:46)
[2020-11-07] MEDS: ISOSORBIDE DINITRATE 10 MG TABLET. PO SCH ×3 (08:38→20:47)
[2020-11-07] MEDS: DULoxetine HCL 30 MG CAPSULE.DR PO SCH (08:38)
--- NOTE | 2020-11-07 08:38 | PDOC ---
PROGRESS NOTES Date of Service DATE: 11/07/20 TIME: 08:36 Subjective Subjective He feels better. Objective Objective Vital Signs Date Time Temp Pulse Resp B/P (MAP) Pulse Ox O2 Delivery O2 Flow Rate FiO2 11/07/20 07:00 97.0 63 22 141/61 (87) 94 BiPAP/CPAP 97.0 11/07/20 05:29 3.0 Intake and Output 11/07/20 07:00 Intake Total 1925 ml Output Total 3275 ml Balance -1350 ml Intake Oral 1925 ml Output Urine Total 3275 ml # Voids 2 Physical Exam Physical Exam He is alert,sitting at edge of bed and eating breakfast and he is receiving ox ygen by nasal canula and he is walking with roller walker in his room. He had less lower extremity edema. Assessment Assessment Problems Medical Problems: (1) Chest pain Status: Acute (2) CHF exacerbation Status: Acute (3) HTN (hypertension) Status: Acute (4) Person under investigation for COVID-19 Status: Acute Plan Plan of Care To continue present rehab efforts as tolerated. Comment Review of Relevant I have reviewed the following items karissa (where applicable) has been applied. Labs Laboratory Tests Test 11/05/20 11:57 11/05/20 16:51 11/05/20 21:31 11/06/20 06:20 Glucose (Fingerstick) 151 mg/dL (70-99) 104 mg/dL (70-99) 170 mg/dL (70-99) White Blood Count 5.0 x10^3/uL (4.0-11.0) Red Blood Count 2.83 x10^6/uL (4.30-5.70) Hemoglobin 7.8 g/dL (13.0-17.5) Hematocrit 25.0 % (39.0-53.0) Mean Corpuscular Volume 89 fL (79-100) Mean Corpuscular Hemoglobin 28 pg (25-35) Mean Corpuscular Hemoglobin Concent 31 g/dL (31-37) Red Cell Distribution Width 15.4 % (11.5-14.5) Platelet Count 264 x10^3/uL (140-400) Neutrophils (%) (Auto) 70 % (31-73) Lymphocytes (%) (Auto) 17 % (24-48) Monocytes (%) (Auto) 7 % (0-9) Eosinophils (%) (Auto) 4 % (0-3) Basophils (%) (Auto) 1 % (0-3) Neutrophils # (Auto) 3.5 x10^3/uL (1.8-7.7) Lymphocytes # (Auto) 0.9 x10^3/uL (1.0-4.8) Monocytes # (Auto) 0.4 x10^3/uL (0.0-1.1) Eosinophils # (Auto) 0.2 x10^3/uL (0.0-0.7) Basophils # (Auto) 0.1 x10^3/uL (0.0-0.2) Sodium Level 139 mmol/L (136-145) Potassium Level 5.6 mmol/L (3.5-5.1) Chloride Level 106 mmol/L (98-107) Carbon Dioxide Level 26 mmol/L (21-32) Anion Gap 7 (6-14) Blood Urea Nitrogen 49 mg/dL (8-26) Creatinine 2.3 mg/dL (0.7-1.3) Estimated GFR (Cockcroft-Gault) 35.8 Glucose Level 170 mg/dL (70-99) Uric Acid 8.5 mg/dL (3.5-7.2) Calcium Level 8.3 mg/dL (8.5-10.1) Lactate Dehydrogenase 223 U/L (85-227) Test 11/06/20 08:21 11/06/20 12:04 11/06/20 13:00 11/06/20 17:11 Glucose (Fingerstick) 165 mg/dL (70-99) 91 mg/dL (70-99) 197 mg/dL (70-99) O2 Saturation 97 % (92-99) Arterial Blood pH 7.37 (7.35-7.45) Arterial Blood pCO2 at Patient Temp 42 mmHg (35-46) Arterial Blood pO2 at Patient Temp 90 mmHg (75-108) Arterial Blood HCO3 24 mmol/L (21-28) Arterial Blood Base Excess -2 mmol/L (-3-3) FiO2 3l nc Test 11/06/20 20:10 11/07/20 04:30 11/07/20 07:23 Glucose (Fingerstick) 141 mg/dL (70-99) 181 mg/dL (70-99) Sodium Level 139 mmol/L (136-145) Potassium Level 4.8 mmol/L (3.5-5.1) Chloride Level 105 mmol/L (98-107) Carbon Dioxide Level 27 mmol/L (21-32) Anion Gap 7 (6-14) Blood Urea Nitrogen 45 mg/dL (8-26) Creatinine 2.2 mg/dL (0.7-1.3) Estimated GFR (Cockcroft-Gault) 37.7 Glucose Level 223 mg/dL (70-99) Calcium Level 8.1 mg/dL (8.5-10.1) Creatine Kinase 120 U/L (39-308) Laboratory Tests Test 11/06/20 12:04 11/06/20 13:00 11/06/20 17:11 11/06/20 20:10 Glucose (Fingerstick) 91 mg/dL (70-99) 197 mg/dL (70-99) 141 mg/dL (70-99) O2 Saturation 97 % (92-99) Arterial Blood pH 7.37 (7.35-7.45) Arterial Blood pCO2 at Patient Temp 42 mmHg (35-46) Arterial Blood pO2 at Patient Temp 90 mmHg (75-108) Arterial Blood HCO3 24 mmol/L (21-28) Arterial Blood Base Excess -2 mmol/L (-3-3) FiO2 3l nc Test 11/07/20 04:30 11/07/20 07:23 Sodium Level 139 mmol/L (136-145) Potassium Level 4.8 mmol/L (3.5-5.1) Chloride Level 105 mmol/L (98-107) Carbon Dioxide Level 27 mmol/L (21-32) Anion Gap 7 (6-14) Blood Urea Nitrogen 45 mg/dL (8-26) Creatinine 2.2 mg/dL (0.7-1.3) Estimated GFR (Cockcroft-Gault) 37.7 Glucose Level 223 mg/dL (70-99) Calcium Level 8.1 mg/dL (8.5-10.1) Creatine Kinase 120 U/L (39-308) Glucose (Fingerstick) 181 mg/dL (70-99) Microbiology 10/31/20 Gram Stain - Final, Complete 10/31/20 Aerobic and Anaerobic Culture - Final, Complete 10/30/20 Urine Culture - Final, Complete Medications Current Medications Nitroglycerin (Nitro-Bid Oint) 1 inch 1X ONCE TP Last administered on 10/20/20at 13:22; Start 10/20/20 at 13:15; Stop 10/20/20 at 13:16; Status DC Morphine Sulfate (Morphine Sulfate) 4 mg 1X ONCE IV Last administered on 10/20/20at 13:23; Start 10/20/20 at 13:15; Stop 10/20/20 at 13:16; Status DC Furosemide (Lasix) 80 mg 1X ONCE IVP Last administered on 10/20/20at 16:25; Start 10/20/20 at 15:45; Stop 10/20/20 at 15:46; Status DC Hydralazine HCl (Apresoline Inj) 10 mg PRN Q20MIN PRN IVP ELEVATED BP, SEE COMMENTS Last administered on 11/07/20at 03:09; Start 10/20/20 at 15:30 Furosemide (Lasix) 80 mg BID94 PO Last administered on 10/23/20at 08:11; Start 10/21/20 at 09:00; Stop 10/24/20 at 15:14; Status DC Insulin Human Lispro (HumaLOG) 0-9 UNITS TIDWMEALS SQ Last administered on 11/03/20at 12:31; Start 10/20/20 at 17:00; Stop 11/04/20 at 15:01; Status DC Dextrose (Dextrose 50%-Water Syringe) 12.5 gm PRN Q15MIN PRN IV SEE COMMENTS; Start 10/20/20 at 15:45 Ondansetron HCl (Zofran) 4 mg PRN Q6HRS PRN IVP NAUSEA/VOMITING Last administered on 10/22/20at 11:57; Start 10/20/20 at 16:15 Al Hydroxide/Mg Hydroxide (Mylanta Plus Xs) 30 ml PRN Q3HRS PRN PO HEARTBURN / GAS; Start 10/20/20 at 16:15; Stop 10/31/20 at 12:38; Status DC Calcium Carbonate/ Glycine (Tums) 500 mg PRN Q3HRS PRN PO UPSET STOMACH; Start 10/20/20 at 16:15 Zolpidem Tartrate (Ambien) 5 mg PRN QHS PRN PO INSOMNIA, MAY REPEAT IN 1HR Last administered on 11/02/20at 21:45; Start 10/20/20 at 16:15 Acetaminophen (Tylenol) 650 mg PRN Q6HRS PRN PO Headaches, Temp > 101.5F Last administered on 10/25/20at 14:19; Start 10/20/20 at 16:15 Magnesium Hydroxide (Milk Of Magnesia) 2,400 mg PRN Q12HR PRN PO CONSTIPATION (1ST CHOICE) Last administered on 10/22/20 06:11; Start 10/20/20 at 16:15; Stop 10/31/20 at 12:37; Status DC Bisacodyl (Dulcolax Supp) 10 mg PRN DAILY PRN MA CONSTIPATION; Start 10/20/20 at 16:15 Heparin Sodium (Porcine) (Heparin Sodium) 5,000 unit Q8HRS SQ Last administered on 10/29/20at 05:59; Start 10/20/20 at 16:30; Stop 10/29/20 at 07:14; Status DC Morphine Sulfate (Morphine Sulfate) 4 mg PRN Q2HR PRN IV MODERATE TO SEVERE PAIN Last administered on 11/07/20at 04:59; Start 10/20/20 at 16:30 Tramadol HCl (Ultram) 50 mg PRN Q6HRS PRN PO MILD TO MODERATE PAIN Last administered on 10/24/20 08:25; Start 10/20/20 at 16:30; Stop 10/30/20 at 20:36; Status DC Amlodipine Besylate (Norvasc) 10 mg DAILY PO Last administered on 11/06/20at 08:47; Start 10/21/20 at 09:00 Aspirin (Aspirin Chewable) 81 mg DAILYWBKFT PO Last administered on 11/06/20at 08:46; Start 10/21/20 at 08:00 Clopidogrel Bisulfate (Plavix) 75 mg DAILY PO Last administered on 11/06/20 08:48; Start 10/21/20 at 09:00 Furosemide (Lasix) 80 mg BID92 PO Last administered on 10/21/20at 08:54; Start 10/20/20 at 17:30; Stop 10/21/20 at 09:37; Status DC Pantoprazole Sodium (Protonix) 40 mg BIDAC PO Last administered on 11/07/20at 05:48; Start 10/20/20 at 17:30 Senna/Docusate Sodium (Senna Plus) 2 tab PRN QEVNG PRN PO CONSTIPATION; Start 10/20/20 at 17:30 Spironolactone (Aldactone) 25 mg DAILY PO Last administered on 10/21/20at 08:52; Start 10/21/20 at 09:00; Stop 10/21/20 at 14:06; Status DC Tamsulosin HCl (Flomax) 0.4 mg DAILY PO Last administered on 11/06/20at 08:48; Start 10/21/20 at 09:00 Carvedilol (Coreg) 25 mg BIDWMEALS PO Last administered on 11/06/20at 17:18; Start 10/20/20 at 17:30 Gabapentin (Neurontin) 300 mg TID PO Last administered on 11/06/20at 20:55; Start 10/20/20 at 21:00 Hydralazine HCl (Apresoline) 100 mg TID PO Last administered on 11/06/20at 20:56; Start 10/20/20 at 21:00 Insulin Human Lispro (HumaLOG) 30 units TIDWMEALS SQ Last administered on 11/04/20at 12:00; Start 10/21/20 at 08:00; Stop 11/04/20 at 15:01; Status DC Insulin Glargine (Lantus Syringe) 60 unit QHS SQ Last administered on 10/22/20at 21:17; Start 10/20/20 at 21:00; Stop 10/23/20 at 13:07; Status DC Isosorbide Dinitrate (Isordil) 5 mg TID PO Last administered on 11/06/20at 20:55; Start 10/20/20 at 21:00 Atorvastatin Calcium (Lipitor) 80 mg QHS PO Last administered on 10/24/20at 21:42; Start 10/20/20 at 21:00; Stop 10/25/20 at 13:42; Status DC Lorazepam (Ativan Inj) 1 mg PRN Q4HRS PRN IVP ANXIETY / AGITATION Last administered on 10/22/20at 11:57; Start 10/20/20 at 17:30 Insulin Glargine (Lantus Syringe) 70 unit QHS SQ Last administered on 11/03/20at 21:12; Start 10/23/20 at 21:00; Stop 11/04/20 at 15:01; Status DC Lidocaine (Lidoderm) 2 patch DAILY TD Last administered on 11/06/20at 08:46; Start 10/24/20 at 09:00 Miscellaneous (Lidoderm Patch Removal) 1 ea QHS MC Last administered on 11/06/20at 20:56; Start 10/24/20 at 21:00 Polysaccharide Iron Complex (Niferex 150) 150 mg DAILY PO Last administered on 11/06/20at 08:47; Start 10/24/20 at 14:00 Sodium Chloride 1,000 ml @ 75 mls/hr [id number] ONCE IV ; Start 10/25/20 at 11:15; Stop 10/25/20 at 13:42; Status DC Sodium Chloride 1,000 ml @ 75 mls/hr [id number] IV Last administered on 10/28/20at 20:48; Start 10/25/20 at 14:00; Stop 10/30/20 at 13:30; Status DC Duloxetine HCl (Cymbalta) 30 mg DAILY PO Last administered on 10/27/20at 08:03; Start 10/25/20 at 15:00; Stop 10/27/20 at 13:33; Status DC Lactulose (Lactulose) 20 gm 1X ONCE PO Last administered on 10/26/20at 12:47; Start 10/26/20 at 10:30; Stop 10/26/20 at 10:31; Status DC Lactulose (Lactulose) 20 gm 1X ONCE PO Last administered on 10/26/20at 12:47; Start 10/26/20 at 10:30; Stop 10/26/20 at 10:31; Status DC Duloxetine HCl (Cymbalta) 60 mg DAILY PO Last administered on 11/06/20at 08:46; Start 10/28/20 at 09:00 Furosemide (Lasix) 40 mg 1X ONCE IVP Last administered on 10/30/20at 12:37; Start 10/30/20 at 12:15; Stop 10/30/20 at 12:20; Status DC Morphine Sulfate (Morphine Sulfate) 4 mg 1X ONCE IM ; Start 10/30/20 at 20:45; Stop 10/30/20 at 20:46; Status Cancel Ceftriaxone Sodium (Rocephin) 1 gm Q24H IVP Last administered on 11/03/20at 21:06; Start 10/30/20 at 21:00; Stop 11/04/20 at 14:58; Status DC Furosemide (Lasix) 40 mg 1X ONCE IVP Last administered on 10/30/20at 21:00; Start 10/30/20 at 21:00; Stop 10/30/20 at 21:01; Status DC Morphine Sulfate (Morphine Sulfate) 4 mg 1X ONCE IV Last administered on 10/30/20at 22:00; Start 10/30/20 at 22:00; Stop 10/30/20 at 22:01; Status DC Fentanyl Citrate (Fentanyl 2ml Vial) 100 mcg STK-MED ONCE .ROUTE ; Start 10/31/20 at 12:18; Stop 10/31/20 at 12:19; Status DC Midazolam HCl (Versed) 2 mg STK-MED ONCE .ROUTE ; Start 10/31/20 at 12:18; Stop 10/31/20 at 12:19; Status DC Heparin Sodium/ Sodium Chloride 1,000 ml @ As Directed STK-MED ONCE .ROUTE ; Start 10/31/20 at 12:19; Stop 10/31/20 at 12:19; Status DC Lidocaine HCl (Lidocaine 1% 20ml Vial) 20 ml STK-MED ONCE .ROUTE ; Start 10/31/20 at 12:28; Stop 10/31/20 at 12:28; Status DC Heparin Sodium/ Sodium Chloride (HEPARIN for ARTERIAL LINE FLUSH) 1,000 unit 1X ONCE IART Last administered on 10/31/20at 13:35; Start 10/31/20 at 12:30; Stop 10/31/20 at 12:32; Status DC Heparin Sodium/ Sodium Chloride (HEPARIN for ARTERIAL LINE FLUSH) 1,000 unit 1X ONCE IART Last administered on 10/31/20at 13:35; Start 10/31/20 at 12:30; Stop 10/31/20 at 12:32; Status DC Midazolam HCl (Versed) 2 mg 1X ONCE IV Last administered on 10/31/20at 13:35; Start 10/31/20 at 12:30; Stop 10/31/20 at 12:32; Status DC Fentanyl Citrate (Fentanyl 2ml Vial) 100 mcg 1X ONCE IV Last administered on 10/31/20at 13:35; Start 10/31/20 at 12:30; Stop 10/31/20 at 12:32; Status DC Lidocaine HCl (Lidocaine 1% 20ml Vial) 20 ml 1X ONCE INJ Last administered on 10/31/20at 13:34; Start 10/31/20 at 12:30; Stop 10/31/20 at 12:32; Status DC Acetaminophen/ Hydrocodone Bitart (Lortab 5/325) 1 tab PRN Q6HRS PRN PO PAIN Last administered on 11/06/20at 17:18; Start 10/31/20 at 12:30 Furosemide (Lasix) 100 mg STK-MED ONCE .ROUTE ; Start 10/31/20 at 13:19; Stop 10/31/20 at 13:19; Status DC Furosemide (Lasix) 80 mg 1X ONCE IVP Last administered on 10/31/20at 13:36; Start 10/31/20 at 13:30; Stop 10/31/20 at 13:31; Status DC Lidocaine HCl (Glydo (Lidocaine) Jelly) 1 nathalie 1X ONCE MM ; Start 11/01/20 at 02:30; Stop 11/01/20 at 02:31; Status DC Metolazone (Zaroxolyn) 2.5 mg DAILY PO Last administered on 11/06/20at 08:47; Start 11/02/20 at 14:00 Atorvastatin Calcium (Lipitor) 20 mg QHS PO Last administered on 11/06/20at 20:54; Start 11/02/20 at 21:00 Furosemide (Lasix) 100 mg 1X ONCE IVP ; Start 11/03/20 at 13:15; Stop 11/03/20 at 13:18; Status DC Oxycodone HCl (Roxicodone) 10 mg 1X ONCE PO Last administered on 11/03/20at 20:49; Start 11/03/20 at 20:00; Stop 11/03/20 at 20:05; Status DC Furosemide (Lasix) 100 mg 1X ONCE IVP ; Start 11/04/20 at 09:00; Stop 11/04/20 at 09:01; Status DC Furosemide (Lasix) 40 mg 1X ONCE IVP Last administered on 11/04/20at 12:13; Start 11/04/20 at 12:00; Stop 11/04/20 at 12:01; Status DC Albuterol Sulfate (Ventolin Neb Soln) 2.5 mg PRN Q6HRS PRN NEB SHORTNESS OF BREATH Last administered on 11/04/20at 16:05; Start 11/04/20 at 13:00 Insulin Glargine (Lantus Syringe) 38 unit QHS SQ Last administered on 11/06/20at 21:03; Start 11/04/20 at 21:00 Insulin Human Lispro (HumaLOG) 13 units TIDWMEALS SQ Last administered on 11/06/20at 17:22; Start 11/04/20 at 17:00 Dextrose (Dextrose 50%-Water Syringe) 12.5 gm PRN Q15MIN PRN IV SEE COMMENTS; Start 11/04/20 at 15:15; Status UNV Sodium Polystyrene Sulfonate (Kayexalate) 45 gm 1X ONCE PO ; Start 11/05/20 at 13:00; Stop 11/05/20 at 13:01; Status DC Bumetanide (Bumex) 1 mg BID94 PO Last administered on 11/06/20at 13:59; Start at 09:00 Sodium Polystyrene Sulfonate (Kayexalate) 45 gm 1X ONCE PO Last administered on 11/06/20at 09:38; Start 11/06/20 at 10:00; Stop 11/06/20 at 10:01; Status DC Heparin Sodium (Porcine) (Heparin Sodium) 5,000 unit Q8HRS SQ Last administered on 11/07/20at 05:51; Start 11/06/20 at 14:00 Active Scripts Active Flomax (Tamsulosin Hcl) 0.4 Mg Cap.er.24h 0.4 Mg PO DAILY Children's Aspirin (Aspirin) 81 Mg Tab.chew 81 Mg PO DAILYWBKFT Reported Senna-Docusate Sodium Tablet (Sennosides/Docusate Sodium) 1 Each Tablet 2 Tab PO PRN QEVNG PRN 5 Days Spironolactone 25 Mg Tablet 25 Mg PO DAILY Vitamin D2 (Ergocalciferol (Vitamin D2)) 1,250 Mcg Capsule 1,250 Mcg PO WEEKLY Lasix (Furosemide) 80 Mg Tablet 80 Mg PO BID Clopidogrel (Clopidogrel Bisulfate) 75 Mg Tablet 75 Mg PO DAILY Carvedilol 25 Mg Tablet 25 Mg PO BIDWMEALS Isosorbide Dinitrate 40 Mg Tablet.er 5 Mg PO TID Gabapentin 600 Mg Tablet 300 Mg PO TID Protonix (Pantoprazole Sodium) 40 Mg Tablet.dr 40 Mg PO BID Hydralazine Hcl 100 Mg Tablet 100 Mg PO TID Amlodipine Besylate 10 Mg Tablet 10 Mg PO DAILY Crestor (Rosuvastatin Calcium) 20 Mg Tablet 20 Mg PO QHS Levemir Flexpen (Insulin Detemir) 100 Unit/1 Ml Insuln.pen 60 Unit SQ HS Novolog Flexpen (Insulin Aspart) 100 Unit/1 Ml Insuln.pen 30 Unit SQ TIDAC Vitals/I & O Vital Sign - Last 24 Hours 11/06/20 11/06/20 11/06/20 11/06/20 08:47 08:47 08:48 08:48 Pulse 60 60 60 65 11/06/20 11/06/20 11/06/20 11/06/20 11:00 13:51 13:52 15:00 Temp 97.8 97.3 97.8 97.3 Pulse 63 65 67 64 Resp 24 B/P (MAP) 140/46 (77) 189/75 (113) Pulse Ox 96 97 O2 Delivery Nasal Cannula Nasal Cannula O2 Flow Rate 3.0 3.0 11/06/20 11/06/20 11/06/20 11/06/20 17:18 18:20 18:26 19:00 Temp 98.0 98.0 Pulse 75 71 Resp 16 16 18 B/P (MAP) 185/69 (107) Pulse Ox 97 97 99 O2 Delivery Nasal Cannula Nasal Cannula Nasal Cannula O2 Flow Rate 3.0 3.0 2.0 11/06/20 11/06/20 11/06/20 11/06/20 19:20 20:55 20:56 21:37 Pulse 71 71 Resp 18 B/P (MAP) 185/69 185/69 Pulse Ox 98 O2 Delivery Nasal Cannula BiPAP/CPAP O2 Flow Rate 3.0 11/06/20 11/06/20 11/07/20 11/07/20 22:09 23:00 02:48 03:08 Temp 97.8 97.7 97.8 97.7 Pulse 65 66 67 Resp 16 24 B/P (MAP) 145/72 (96) 199/72 (114) 188/68 (108) Pulse Ox 98 92 95 O2 Delivery Nasal Cannula Room Air BiPAP/CPAP O2 Flow Rate 3.0 11/07/20 11/07/20 11/07/20 11/07/20 03:09 04:47 04:59 05:29 Pulse 67 75 Resp 18 18 B/P (MAP) 188/68 152/56 (88) Pulse Ox 96 96 O2 Delivery Nasal Cannula Nasal Cannula O2 Flow Rate 3.0 3.0 11/07/20 07:00 Temp 97.0 97.0 Pulse 63 Resp 22 B/P (MAP) 141/61 (87) Pulse Ox 94 O2 Delivery BiPAP/CPAP Intake and Output 11/06/20 11/06/20 11/07/20 15:00 23:00 07:00 Intake Total 605 ml 1200 ml 120 ml Output Total 750 ml 1675 ml 850 ml Balance -145 ml -475 ml -730 ml Justifications for Admission Other Justification Acute respiratory failure with hypoxia, acute diastolic CHF exacerbation, right breast mass RYLEY ELLISON MD Nov 07, 2020 08:38
[2020-11-07] MEDS: BUMETANIDE 1 MG TABLET. PO SCH ×2 (08:39→16:37)
[2020-11-07] MEDS: CARVEDILOL 12.5 MG TABLET. PO SCH ×2 (08:40→17:23)
[2020-11-07] MEDS: LIDOCAINE (700MG/PATCH) PATCH. TD SCH (08:41)
[2020-11-07] MEDS: INSULIN LISPRO 300 UNITS/3 ML VIAL. SQ SCH ×3 (08:58→17:30)
--- NOTE | 2020-11-07 10:13 | PDOC ---
Date of Service: DATE: 11/07/20 TIME: 10:10 Subjective: Subjective: "I'm neymar." No GI complaints. Asks for our card. Objective: Vital Signs: Vital Signs Date Time Temp Pulse Resp B/P (MAP) Pulse Ox O2 Delivery O2 Flow Rate FiO2 11/07/20 08:40 63 141/61 11/07/20 07:00 97.0 22 94 BiPAP/CPAP 97.0 11/07/20 05:29 3.0 Labs: Laboratory Tests Test 11/06/20 12:04 11/06/20 13:00 11/06/20 17:11 11/06/20 20:10 Glucose (Fingerstick) 91 mg/dL 197 mg/dL 141 mg/dL O2 Saturation 97 % Arterial Blood pH 7.37 Arterial Blood pCO2 at Patient Temp 42 mmHg Arterial Blood pO2 at Patient Temp 90 mmHg Arterial Blood HCO3 24 mmol/L Arterial Blood Base Excess -2 mmol/L FiO2 3l nc Test 11/07/20 04:30 11/07/20 07:23 Sodium Level 139 mmol/L Potassium Level 4.8 mmol/L Chloride Level 105 mmol/L Carbon Dioxide Level 27 mmol/L Anion Gap 7 Blood Urea Nitrogen 45 mg/dL Creatinine 2.2 mg/dL Estimated GFR (Cockcroft-Gault) 37.7 Glucose Level 223 mg/dL Calcium Level 8.1 mg/dL Creatine Kinase 120 U/L Glucose (Fingerstick) 181 mg/dL ORDERED: XANDER/KVNG/RC COMMENTS: PENIS Procedure Result GRAM STAIN Final Final GRAM NEGATIVE RODS:FEW GRAM POSITIVE RODS:RARE SQUAMOUS EPI CELL:NONE SEEN PMN (WBCs):MANY Unless otherwise specified, Testing Performed by: [address] [address] For Inquires, the Physician may contact the Microbiology department at [phone] ANAEROBIC-AEROBIC CULTURE Final Final MIXED AEROBIC SHANNON on 11/02/20 at 1346 INCLUDING: FEW [STAPHYLOCOCCUS EPIDERMIDIS] FEW [CORYNEBACTERIUM AURIMUCOSUM GR] FEW [STAPHYLOCOCCUS HAEMOLYTICUS] MODERATE [PEPTONIPHILUS SPECIES] on 11/03/20 at 1141 FEW [PREVOTELLA SPECIES] on 11/03/20 at 1141 UNIDENTIFIED ORGANISM STAPHYLOCOCCUS EPIDERMIDIS CORYNEBACTERIUM AURIMUCOSUM GR PEPTONIPHILUS SPECIES PREVOTELLA SPECIES STAPHYLOCOCCUS HAEMOLYTICUS Imaging: LE US 11/06 IMPRESSION: * No thrombus identified in deep venous system of right lower extremity. * Edema of the soft tissues. PE: GEN: NAD - breakfast 100% consumed LUNGS: diminished, NC 3L HEART: RRR ABD: large, non-tender EXTREMITY: BLE edema NEURO/PSYCH: A & O 3 A/P: CHF, CKD, abscess CORY, GERD - on iron and PPI here, no previous scopes Substance abuse COVID negative 10/20 -- Continue same per GI. Justicifation of Admission Dx: Justifications for Admission: Justification of Admission Dx: N/A CHRISTIANE SOLITARIO Nov 07, 2020 10:13
--- NOTE | 2020-11-07 10:58 | PDOC ---
PROGRESS NOTES Date of Service DATE: 11/07/20 TIME: 10:55 Assessment Problems Medical Problems: (1) Chest pain Status: Acute (2) CHF exacerbation Status: Acute (3) HTN (hypertension) Status: Acute (4) Person under investigation for COVID-19 Status: Acute Peripheral neuropathy, most likely from diabetes (hemoglobin A1c is 6.9), labs negative for other causes, exacerbated by acute metabolic issues including anemia and renal failure. Consider acute inflammatory demyelinating neuropathy, but this is unlikely, patient started getting weak at least a year ago. I find no evidence of central nervous system disease including myelopathy. Lab work so far is negative. He denies significant back pain Substance abuse, cocaine and urine drug screen drawn 9 days after admission Cardiac catheterization, 10/31, elevated biventricular filling pressures and cor pulmonale, planning on medical treatment Leg edema, venous Doppler negative for thrombus Anemia, had a transfusion Plan Rehabilitation modalities, needs inpatient rehab, insurance has denied Continue gabapentin and duloxetine. Follow-up with me for outpatient EMG studies Subjective Pain is controlled, ready to go home Objective Vital Signs Date Time Temp Pulse Resp B/P (MAP) Pulse Ox O2 Delivery O2 Flow Rate FiO2 11/07/20 08:40 63 141/61 11/07/20 07:00 97.0 22 94 BiPAP/CPAP 97.0 11/07/20 05:29 3.0 Intake and Output 11/07/20 07:00 Intake Total 1925 ml Output Total 3275 ml Balance -1350 ml Intake Oral 1925 ml Output Urine Total 3275 ml # Voids 2 PHYSICAL EXAM Alert. Oriented to time, place and person. PERRL. EOMI. CN: no focal findings. Muscle tone: normal. Muscle strength: 4/5 DTR: 0+ Plantar reflex: Flexor Gait: not examined in bed. Sensory exam: stocking loss. Review of Relevant I have reviewed the following items karissa (where applicable) has been applied. Labs Laboratory Tests Test 11/05/20 11:57 11/05/20 16:51 11/05/20 21:31 11/06/20 06:20 Glucose (Fingerstick) 151 mg/dL (70-99) 104 mg/dL (70-99) 170 mg/dL (70-99) White Blood Count 5.0 x10^3/uL (4.0-11.0) Red Blood Count 2.83 x10^6/uL (4.30-5.70) Hemoglobin 7.8 g/dL (13.0-17.5) Hematocrit 25.0 % (39.0-53.0) Mean Corpuscular Volume 89 fL (79-100) Mean Corpuscular Hemoglobin 28 pg (25-35) Mean Corpuscular Hemoglobin Concent 31 g/dL (31-37) Red Cell Distribution Width 15.4 % (11.5-14.5) Platelet Count 264 x10^3/uL (140-400) Neutrophils (%) (Auto) 70 % (31-73) Lymphocytes (%) (Auto) 17 % (24-48) Monocytes (%) (Auto) 7 % (0-9) Eosinophils (%) (Auto) 4 % (0-3) Basophils (%) (Auto) 1 % (0-3) Neutrophils # (Auto) 3.5 x10^3/uL (1.8-7.7) Lymphocytes # (Auto) 0.9 x10^3/uL (1.0-4.8) Monocytes # (Auto) 0.4 x10^3/uL (0.0-1.1) Eosinophils # (Auto) 0.2 x10^3/uL (0.0-0.7) Basophils # (Auto) 0.1 x10^3/uL (0.0-0.2) Sodium Level 139 mmol/L (136-145) Potassium Level 5.6 mmol/L (3.5-5.1) Chloride Level 106 mmol/L (98-107) Carbon Dioxide Level 26 mmol/L (21-32) Anion Gap 7 (6-14) Blood Urea Nitrogen 49 mg/dL (8-26) Creatinine 2.3 mg/dL (0.7-1.3) Estimated GFR (Cockcroft-Gault) 35.8 Glucose Level 170 mg/dL (70-99) Uric Acid 8.5 mg/dL (3.5-7.2) Calcium Level 8.3 mg/dL (8.5-10.1) Lactate Dehydrogenase 223 U/L (85-227) Test 11/06/20 08:21 11/06/20 12:04 11/06/20 13:00 11/06/20 17:11 Glucose (Fingerstick) 165 mg/dL (70-99) 91 mg/dL (70-99) 197 mg/dL (70-99) O2 Saturation 97 % (92-99) Arterial Blood pH 7.37 (7.35-7.45) Arterial Blood pCO2 at Patient Temp 42 mmHg (35-46) Arterial Blood pO2 at Patient Temp 90 mmHg (75-108) Arterial Blood HCO3 24 mmol/L (21-28) Arterial Blood Base Excess -2 mmol/L (-3-3) FiO2 3l nc Test 11/06/20 20:10 11/07/20 04:30 11/07/20 07:23 Glucose (Fingerstick) 141 mg/dL (70-99) 181 mg/dL (70-99) Sodium Level 139 mmol/L (136-145) Potassium Level 4.8 mmol/L (3.5-5.1) Chloride Level 105 mmol/L (98-107) Carbon Dioxide Level 27 mmol/L (21-32) Anion Gap 7 (6-14) Blood Urea Nitrogen 45 mg/dL (8-26) Creatinine 2.2 mg/dL (0.7-1.3) Estimated GFR (Cockcroft-Gault) 37.7 Glucose Level 223 mg/dL (70-99) Calcium Level 8.1 mg/dL (8.5-10.1) Creatine Kinase 120 U/L (39-308) Laboratory Tests Test 11/06/20 12:04 11/06/20 13:00 11/06/20 17:11 11/06/20 20:10 Glucose (Fingerstick) 91 mg/dL (70-99) 197 mg/dL (70-99) 141 mg/dL (70-99) O2 Saturation 97 % (92-99) Arterial Blood pH 7.37 (7.35-7.45) Arterial Blood pCO2 at Patient Temp 42 mmHg (35-46) Arterial Blood pO2 at Patient Temp 90 mmHg (75-108) Arterial Blood HCO3 24 mmol/L (21-28) Arterial Blood Base Excess -2 mmol/L (-3-3) FiO2 3l nc Test 11/07/20 04:30 11/07/20 07:23 Sodium Level 139 mmol/L (136-145) Potassium Level 4.8 mmol/L (3.5-5.1) Chloride Level 105 mmol/L (98-107) Carbon Dioxide Level 27 mmol/L (21-32) Anion Gap 7 (6-14) Blood Urea Nitrogen 45 mg/dL (8-26) Creatinine 2.2 mg/dL (0.7-1.3) Estimated GFR (Cockcroft-Gault) 37.7 Glucose Level 223 mg/dL (70-99) Calcium Level 8.1 mg/dL (8.5-10.1) Creatine Kinase 120 U/L (39-308) Glucose (Fingerstick) 181 mg/dL (70-99) Microbiology 10/31/20 Gram Stain - Final, Complete 10/31/20 Aerobic and Anaerobic Culture - Final, Complete 10/30/20 Urine Culture - Final, Complete Medications Current Medications Nitroglycerin (Nitro-Bid Oint) 1 inch 1X ONCE TP Last administered on 10/20/20at 13:22; Start 10/20/20 at 13:15; Stop 10/20/20 at 13:16; Status DC Morphine Sulfate (Morphine Sulfate) 4 mg 1X ONCE IV Last administered on 10/20/20at 13:23; Start 10/20/20 at 13:15; Stop 10/20/20 at 13:16; Status DC Furosemide (Lasix) 80 mg 1X ONCE IVP Last administered on 10/20/20at 16:25; Start 10/20/20 at 15:45; Stop 10/20/20 at 15:46; Status DC Hydralazine HCl (Apresoline Inj) 10 mg PRN Q20MIN PRN IVP ELEVATED BP, SEE COMMENTS Last administered on 11/07/20at 03:09; Start 10/20/20 at 15:30 Furosemide (Lasix) 80 mg [id number] PO Last administered on 10/23/20at 08:11; Start 10/21/20 at 09:00; Stop 10/24/20 at 15:14; Status DC Insulin Human Lispro (HumaLOG) 0-9 UNITS TIDWMEALS SQ Last administered on 11/03/20at 12:31; Start 10/20/20 at 17:00; Stop 11/04/20 at 15:01; Status DC Dextrose (Dextrose 50%-Water Syringe) 12.5 gm PRN Q15MIN PRN IV SEE COMMENTS; Start 10/20/20 at 15:45 Ondansetron HCl (Zofran) 4 mg PRN Q6HRS PRN IVP NAUSEA/VOMITING Last administered on 10/22/20at 11:57; Start 10/20/20 at 16:15 Al Hydroxide/Mg Hydroxide (Mylanta Plus Xs) 30 ml PRN Q3HRS PRN PO HEARTBURN / GAS; Start 10/20/20 at 16:15; Stop 10/31/20 at 12:38; Status DC Calcium Carbonate/ Glycine (Tums) 500 mg PRN Q3HRS PRN PO UPSET STOMACH; Start 10/20/20 at 16:15 Zolpidem Tartrate (Ambien) 5 mg PRN QHS PRN PO INSOMNIA, MAY REPEAT IN 1HR Last administered on 11/02/20at 21:45; Start 10/20/20 at 16:15 Acetaminophen (Tylenol) 650 mg PRN Q6HRS PRN PO Headaches, Temp > 101.5F Last administered on 10/25/20at 14:19; Start 10/20/20 at 16:15 Magnesium Hydroxide (Milk Of Magnesia) 2,400 mg PRN Q12HR PRN PO CONSTIPATION (1ST CHOICE) Last administered on 10/22/20at 06:11; Start 10/20/20 at 16:15; Stop 10/31/20 at 12:37; Status DC Bisacodyl (Dulcolax Supp) 10 mg PRN DAILY PRN [place] CONSTIPATION; Start 10/20/20 at 16:15 Heparin Sodium (Porcine) (Heparin Sodium) 5,000 unit Q8HRS SQ Last administered on 10/29/20at 05:59; Start 10/20/20 at 16:30; Stop 10/29/20 at 07:14; Status DC Morphine Sulfate (Morphine Sulfate) 4 mg PRN Q2HR PRN IV MODERATE TO SEVERE PAIN Last administered on 11/07/20at 04:59; Start 10/20/20 at 16:30 Tramadol HCl (Ultram) 50 mg PRN Q6HRS PRN PO MILD TO MODERATE PAIN Last administered on 10/24/20at 08:25; Start 10/20/20 at 16:30; Stop 10/30/20 at 20:36; Status DC Amlodipine Besylate (Norvasc) 10 mg DAILY PO Last administered on 11/07/20at 08:37; Start 10/21/20 at 09:00 Aspirin (Aspirin Chewable) 81 mg DAILYWBKFT PO Last administered on 11/07/20at 08:37; Start 10/21/20 at 08:00 Clopidogrel Bisulfate (Plavix) 75 mg DAILY PO Last administered on 11/07/20at 08:37; Start 10/21/20 at 09:00 Furosemide (Lasix) 80 mg BID92 PO Last administered on 10/21/20at 08:54; Start 10/20/20 at 17:30; Stop 10/21/20 at 09:37; Status DC Pantoprazole Sodium (Protonix) 40 mg BIDAC PO Last administered on 11/07/20at 05:48; Start 10/20/20 at 17:30 Senna/Docusate Sodium (Senna Plus) 2 tab PRN QEVNG PRN PO CONSTIPATION; Start 10/20/20 at 17:30 Spironolactone (Aldactone) 25 mg DAILY PO Last administered on 10/21/20at 08:52; Start 10/21/20 at 09:00; Stop 10/21/20 at 14:06; Status DC Tamsulosin HCl (Flomax) 0.4 mg DAILY PO Last administered on 11/07/20at 08:37; Start 10/21/20 at 09:00 Carvedilol (Coreg) 25 mg BIDWMEALS PO Last administered on 11/07/20at 08:40; Start 10/20/20 at 17:30 Gabapentin (Neurontin) 300 mg TID PO Last administered on 11/07/20at 08:38; Start 10/20/20 at 21:00 Hydralazine HCl (Apresoline) 100 mg TID PO Last administered on 11/07/20at 08:39; Start 10/20/20 at 21:00 Insulin Human Lispro (HumaLOG) 30 units TIDWMEALS SQ Last administered on 11/04/20at 12:00; Start 10/21/20 at 08:00; Stop 11/04/20 at 15:01; Status DC Insulin Glargine (Lantus Syringe) 60 unit QHS SQ Last administered on 10/22/20at 21:17; Start 10/20/20 at 21:00; Stop 10/23/20 at 13:07; Status DC Isosorbide Dinitrate (Isordil) 5 mg TID PO Last administered on 11/07/20at 08:38; Start 10/20/20 at 21:00 Atorvastatin Calcium (Lipitor) 80 mg QHS PO Last administered on 10/24/20at 21:42; Start 10/20/20 at 21:00; Stop 10/25/20 at 13:42; Status DC Lorazepam (Ativan Inj) 1 mg PRN Q4HRS PRN IVP ANXIETY / AGITATION Last administered on 10/22/20at 11:57; Start 10/20/20 at 17:30 Insulin Glargine (Lantus Syringe) 70 unit QHS SQ Last administered on 11/03/20at 21:12; Start 10/23/20 at 21:00; Stop 11/04/20 at 15:01; Status DC Lidocaine (Lidoderm) 2 patch DAILY TD Last administered on 11/07/20at 08:41; Start 10/24/20 at 09:00 Miscellaneous (Lidoderm Patch Removal) 1 ea QHS MC Last administered on 11/06/20at 20:56; Start 10/24/20 at 21:00 Polysaccharide Iron Complex (Niferex 150) 150 mg DAILY PO Last administered on 11/07/20at 08:37; Start 10/24/20 at 14:00 Sodium Chloride 1,000 ml @ 75 mls/hr [id number] ONCE IV ; Start 10/25/20 at 11:15; Stop 10/25/20 at 13:42; Status DC Sodium Chloride 1,000 ml @ 75 mls/hr [id number] IV Last administered on 10/28/20at 20:48; Start 10/25/20 at 14:00; Stop 10/30/20 at 13:30; Status DC Duloxetine HCl (Cymbalta) 30 mg DAILY PO Last administered on 10/27/20at 08:03; Start 10/25/20 at 15:00; Stop 10/27/20 at 13:33; Status DC Lactulose (Lactulose) 20 gm 1X ONCE PO Last administered on 10/26/20at 12:47; Start 10/26/20 at 10:30; Stop 10/26/20 at 10:31; Status DC Lactulose (Lactulose) 20 gm 1X ONCE PO Last administered on 10/26/20at 12:47; Start 10/26/20 at 10:30; Stop 10/26/20 at 10:31; Status DC Duloxetine HCl (Cymbalta) 60 mg DAILY PO Last administered on 11/07/20at 08:38; Start 10/28/20 at 09:00 Furosemide (Lasix) 40 mg 1X ONCE IVP Last administered on 10/30/20at 12:37; Start 10/30/20 at 12:15; Stop 10/30/20 at 12:20; Status DC Morphine Sulfate (Morphine Sulfate) 4 mg 1X ONCE IM ; Start 10/30/20 at 20:45; Stop 10/30/20 at 20:46; Status Cancel Ceftriaxone Sodium (Rocephin) 1 gm Q24H IVP Last administered on 11/03/20at 21:06; Start 10/30/20 at 21:00; Stop 11/04/20 at 14:58; Status DC Furosemide (Lasix) 40 mg 1X ONCE IVP Last administered on 10/30/20at 21:00; Start 10/30/20 at 21:00; Stop 10/30/20 at 21:01; Status DC Morphine Sulfate (Morphine Sulfate) 4 mg 1X ONCE IV Last administered on 10/30/20at 22:00; Start 10/30/20 at 22:00; Stop 10/30/20 at 22:01; Status DC Fentanyl Citrate (Fentanyl 2ml Vial) 100 mcg STK-MED ONCE .ROUTE ; Start 10/31/20 at 12:18; Stop 10/31/20 at 12:19; Status DC Midazolam HCl (Versed) 2 mg STK-MED ONCE .ROUTE ; Start 10/31/20 at 12:18; Stop 10/31/20 at 12:19; Status DC Heparin Sodium/ Sodium Chloride 1,000 ml @ As Directed STK-MED ONCE .ROUTE ; Start 10/31/20 at 12:19; Stop 10/31/20 at 12:19; Status DC Lidocaine HCl (Lidocaine 1% 20ml Vial) 20 ml STK-MED ONCE .ROUTE ; Start at 12:28; Stop 10/31/20 at 12:28; Status DC Heparin Sodium/ Sodium Chloride (HEPARIN for ARTERIAL LINE FLUSH) 1,000 unit 1X ONCE IART Last administered on 10/31/20at 13:35; Start 10/31/20 at 12:30; Stop 10/31/20 at 12:32; Status DC Heparin Sodium/ Sodium Chloride (HEPARIN for ARTERIAL LINE FLUSH) 1,000 unit 1X ONCE IART Last administered on 10/31/20at 13:35; Start 10/31/20 at 12:30; Stop 10/31/20 at 12:32; Status DC Midazolam HCl (Versed) 2 mg 1X ONCE IV Last administered on 10/31/20at 13:35; Start 10/31/20 at 12:30; Stop 10/31/20 at 12:32; Status DC Fentanyl Citrate (Fentanyl 2ml Vial) 100 mcg 1X ONCE IV Last administered on 10/31/20at 13:35; Start 10/31/20 at 12:30; Stop 10/31/20 at 12:32; Status DC Lidocaine HCl (Lidocaine 1% 20ml Vial) 20 ml 1X ONCE INJ Last administered on 10/31/20at 13:34; Start 10/31/20 at 12:30; Stop 10/31/20 at 12:32; Status DC Acetaminophen/ Hydrocodone Bitart (Lortab 5/325) 1 tab PRN Q6HRS PRN PO PAIN Last administered on 11/06/20at 17:18; Start 10/31/20 at 12:30 Furosemide (Lasix) 100 mg STK-MED ONCE .ROUTE ; Start 10/31/20 at 13:19; Stop 10/31/20 at 13:19; Status DC Furosemide (Lasix) 80 mg 1X ONCE IVP Last administered on 10/31/20at 13:36; Start 10/31/20 at 13:30; Stop 10/31/20 at 13:31; Status DC Lidocaine HCl (Glydo (Lidocaine) Jelly) 1 nathalie 1X ONCE MM ; Start 11/01/20 at 02:30; Stop 11/01/20 at 02:31; Status DC Metolazone (Zaroxolyn) 2.5 mg DAILY PO Last administered on 11/07/20at 08:37; Start 11/02/20 at 14:00 Atorvastatin Calcium (Lipitor) 20 mg QHS PO Last administered on 11/06/20at 20:54; Start 11/02/20 at 21:00 Furosemide (Lasix) 100 mg 1X ONCE IVP ; Start 11/03/20 at 13:15; Stop 11/03/20 at 13:18; Status DC Oxycodone HCl (Roxicodone) 10 mg 1X ONCE PO Last administered on 11/03/20at 20:49; Start 11/03/20 at 20:00; Stop 11/03/20 at 20:05; Status DC Furosemide (Lasix) 100 mg 1X ONCE IVP ; Start 11/04/20 at 09:00; Stop 11/04/20 at 09:01; Status DC Furosemide (Lasix) 40 mg 1X ONCE IVP Last administered on 11/04/20at 12:13; Start 11/04/20 at 12:00; Stop 11/04/20 at 12:01; Status DC Albuterol Sulfate (Ventolin Neb Soln) 2.5 mg PRN Q6HRS PRN NEB SHORTNESS OF BREATH Last administered on 11/04/20at 16:05; Start 11/04/20 at 13:00 Insulin Glargine (Lantus Syringe) 38 unit QHS SQ Last administered on 11/06/20at 21:03; Start 11/04/20 at 21:00 Insulin Human Lispro (HumaLOG) 13 units TIDWMEALS SQ Last administered on 11/07/20at 08:58; Start 11/04/20 at 17:00 Dextrose (Dextrose 50%-Water Syringe) 12.5 gm PRN Q15MIN PRN IV SEE COMMENTS; Start 11/04/20 at 15:15; Status UNV Sodium Polystyrene Sulfonate (Kayexalate) 45 gm 1X ONCE PO ; Start 11/05/20 at 13:00; Stop 11/05/20 at 13:01; Status DC Bumetanide (Bumex) 1 mg BID94 PO Last administered on 11/07/20at 08:39; Start 11/06/20 at 09:00 Sodium Polystyrene Sulfonate (Kayexalate) 45 gm 1X ONCE PO Last administered on 11/06/20at 09:38; Start 11/06/20 at 10:00; Stop 11/06/20 at 10:01; Status DC Heparin Sodium (Porcine) (Heparin Sodium) 5,000 unit Q8HRS SQ Last administered on 11/07/20at 05:51; Start 11/06/20 at 14:00 Active Scripts Active Flomax (Tamsulosin Hcl) 0.4 Mg Cap.er.24h 0.4 Mg PO DAILY Children's Aspirin (Aspirin) 81 Mg Tab.chew 81 Mg PO DAILYWBKFT Reported Senna-Docusate Sodium Tablet (Sennosides/Docusate Sodium) 1 Each Tablet 2 Tab PO PRN QEVNG PRN 5 Days Spironolactone 25 Mg Tablet 25 Mg PO DAILY Vitamin D2 (Ergocalciferol (Vitamin D2)) 1,250 Mcg Capsule 1,250 Mcg PO WEEKLY Lasix (Furosemide) 80 Mg Tablet 80 Mg PO BID Clopidogrel (Clopidogrel Bisulfate) 75 Mg Tablet 75 Mg PO DAILY Carvedilol 25 Mg Tablet 25 Mg PO BIDWMEALS Isosorbide Dinitrate 40 Mg Tablet.er 5 Mg PO TID Gabapentin 600 Mg Tablet 300 Mg PO TID Protonix (Pantoprazole Sodium) 40 Mg Tablet.dr 40 Mg PO BID Hydralazine Hcl 100 Mg Tablet 100 Mg PO TID Amlodipine Besylate 10 Mg Tablet 10 Mg PO DAILY Crestor (Rosuvastatin Calcium) 20 Mg Tablet 20 Mg PO QHS Levemir Flexpen (Insulin Detemir) 100 Unit/1 Ml Insuln.pen 60 Unit SQ HS Novolog Flexpen (Insulin Aspart) 100 Unit/1 Ml Insuln.pen 30 Unit SQ TIDAC Vitals/I & O Vital Sign - Last 24 Hours 11/06/20 11/06/20 11/06/20 11/06/20 11:00 13:51 13:52 15:00 Temp 97.8 97.3 97.8 97.3 Pulse 63 65 67 64 Resp 22 24 B/P (MAP) 140/46 (77) 189/75 (113) Pulse Ox 96 97 O2 Delivery Nasal Cannula Nasal Cannula O2 Flow Rate 3.0 3.0 11/06/20 11/06/20 11/06/20 11/06/20 17:18 18:20 18:26 19:00 Temp 98.0 98.0 Pulse 75 71 Resp 16 16 18 B/P (MAP) 185/69 (107) Pulse Ox 97 97 99 O2 Delivery Nasal Cannula Nasal Cannula Nasal Cannula O2 Flow Rate 3.0 3.0 2.0 11/06/20 11/06/20 11/06/20 11/06/20 19:20 20:55 20:56 21:37 Pulse 71 71 Resp 18 B/P (MAP) 185/69 185/69 Pulse Ox 98 O2 Delivery Nasal Cannula BiPAP/CPAP O2 Flow Rate 3.0 11/06/20 11/06/20 11/07/20 11/07/20 22:09 23:00 02:48 03:08 Temp 97.8 97.7 97.8 97.7 Pulse 65 66 67 Resp 16 22 24 B/P (MAP) 145/72 (96) 199/72 (114) 188/68 (108) Pulse Ox 98 92 95 O2 Delivery Nasal Cannula Room Air BiPAP/CPAP O2 Flow Rate 3.0 11/07/20 11/07/20 11/07/20 11/07/20 03:09 04:47 04:59 05:29 Pulse 67 75 Resp 18 18 B/P (MAP) 188/68 152/56 (88) Pulse Ox 96 96 O2 Delivery Nasal Cannula Nasal Cannula O2 Flow Rate 3.0 3.0 11/07/20 11/07/20 11/07/20 11/07/20 07:00 08:37 08:38 08:39 Temp 97.0 97.0 Pulse 63 63 63 63 Resp 22 B/P (MAP) 141/61 (87) 141/61 141/61 141/61 Pulse Ox 94 O2 Delivery BiPAP/CPAP 11/07/20 08:40 Pulse 63 B/P (MAP) 141/61 Intake and Output 11/06/20 11/06/20 11/07/20 15:00 23:00 07:00 Intake Total 605 ml 1200 ml 120 ml Output Total 750 ml 1675 ml 850 ml Balance -145 ml -475 ml -730 ml Justicifation of Admission Dx: Justifications for Admission: Justification of Admission Dx: N/A LORRAINE GUNN MD Nov 07, 2020 10:58
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
--- NOTE | 2020-11-07 13:45 | PDOC ---
[employer] PROGRESS NOTE Date of Service DOS: DATE: 11/07/20 TIME: 13:43 Chief Complaint Chief Complaint impression Acute respiratory failure with hypoxia Acute diastolic heart failure (CHF) aortic stenosis Elevated brain natriuretic peptide (BNP) level Pulmonary HTN , severe due to cocaine abuse CKD Normocytic anemia Hypertensive urgency moderate mitral regurgitation. Right breast mass Malnutrition normocytic anemia CKD stage 3 B- Seen by [facility] renal . Cr was at his baseline at Presentation to [facility] Peripheral neuropathy, most likely from diabetes exacerbated by acute metabolic issues including anemia and renal failure. Consider acute inflammatory demyelinating neuropathy, 2-11 remains SOA, using bipap at hs poor prognosis due to cocaine abuse 2-12 possibility of visiting with the Pulmonary Hypertension Clinic at [facility]. HE HAS NOT FOLLOWED UP, may benefit from hospice if remains noncompliant and continues cocaine usage 2-13 transfused today will consult GI ? EGD, AM LABS, IV PROTONIX 2-14 pos urine drug screen for cocaine ,, ct penis, cardiac cath in am mod penile edema 28 MIN pt exam, chart review, > 50% of time spent with exam, chart review, pt care coordination History of Present Illness History of Present Illness 11/07/2020 No acute events overnight. Patient continues to complain of weakness during ambulation and shortness of breath upon exertion. Encourage patient needs to be motivated for rehab modalities. We will continue with fluid removal via current diuresis. Improved lower extremity swelling. Patient continues to have net negative fluid balance. Total of -1.3 L output. Patient's chart, labs, images were reviewed and discussed with RN 11/06. right ankle pain and swelling, will ultrasound, heparin 5k tid cont other, OOB to chair, cont PT and OT, he looks a lot better, may be able to DC soon 11/05: Patient seen and evaluated. Afebrile. Extremely dyspneic today. UA obtained yesterday negative for acute infection. We will continue to diurese with Bumex 1 mg p.o. twice daily. Continue to monitor kidney function. Continue to monitor I's and O's. Discussed with patient, he really needs skilled. 11/04: Patient seen and evaluated. Afebrile. Patient positive for cocaine and PCP in hospital. Will he does admit to doing cocaine prior to admission he still denies using cocaine while in the hospital. Patient's cousin is in room who can verify his claims. Noncompliant with cardiac diet. Fluctuating blood sugars with some in low 50s. Will adjust insulin medication. Notes improvement in penile edema. Still complains of some dysuria. Possibly secondary to having Alvarez catheter and. Will obtain UA. Breathing treatments as needed. We will continue to diurese. Recommending acute rehab but if insurance does not cover, will need home health at minimum. Discussed with RN. 11/03 , discussed his urine drug screen from 10/29, where he tested positive to cocaine and PCP - he denies vehemently and stared me down in a weird way./ I discussed that guys who do cocaine dont usually live past age 56. He was mad and wanted me to "make him better" - I think his ability to improve is going to be limited 11-02 Patient seen and evaluated. Denies chest pain or shortness of breath. Net fluid balance continues to be negative. Creatinine continues to be stable around 2.4. Continue diuresis. Receiving Rocephin prophylactically for penile edema. 11-01 Patient seen and evaluated. Denies chest pain. He had left heart cath yesterday showing elevated biventricular filling pressures, moderate pulmonary pretension due to diastolic dysfunction, cor pulmonale. He was recommended to continue aggressive diuresis and monitor renal function. Discussed weight loss and treatment of ROXANNE. 10-31 Seen and evaluated. Still c/o intemittent chesty pain. CT penis yesterday showed soft tissue edema involving the penis scrotum, thought to be related to volume overload given diffuse soft tissue anasarca. [facility] today. Discussed with RN. 10-30 CATH IN AM,, moderate penile edema, perhaps related to ascites, will obtain ct penis and scrotum 10-29 remains anemic after one unit, consulted GI , NPO possible PUD , CT AB D, PELVIS -12 cr 2.5, transfused, D/W RN, AM CBC 2- remains SOA, using cpap at hs poor prognosis due to cocaine abuse, abg today 2-10 Peripheral neuropathy, most likely from diabetes rule out other causes, exacerbated by acute metabolic issues including anemia and renal failure. Consider acute inflammatory demyelinating neuropathy, D/W RN 10/25 - Pt is in moderate distress, states he is profoundly weak and is eager to get to the bottom on this problem. Discussed his continue compliance with cpap machine. Mr Moran is a 54yo M w/ PMHx Diabetes-Type II, High Cholesterol, Hypertension, Pancreatitis, CKD 4, presents to the ER with complaint of worsening shortness of breath of the past 3 days. He reports associated intermittent chest pain and bilateral lower extremity swelling. States his symptoms are worse with exertion. Upon arrival in the ED his BNP was 3029. He was placed on BiPAP given IV morphine with improvement of symptoms. States he has not taken any of his home medications today. He does report a tender lump in his right breast for the past 3 weeks, reports a family history of breast cancer. He denies any fever, sick contacts, or known COVID-19 exposure. Will admit patient for further medical management. 10/21: Patient seen and evaluated. Improved on BiPAP overnight. Afebrile, denies chest pain. Blood pressure better controlled. CBG 323 this morning. Of note patient did order two trays of nondiabetic meals, and had fried chicken delivered to his room last night. Discussed importance of cardiac and diabetic diet for his heart health. Continue to diurese with Lasix. Echocardiogram and ultrasound right breast pending. If appropriately diuresed and no concerning findings on right breast ultrasound, Vitals/I&O Vitals/I&O: Vital Signs Date Time Temp Pulse Resp B/P (MAP) Pulse Ox O2 Delivery O2 Flow Rate FiO2 11/07/20 11:13 97.7 62 20 133/64 (87) 98 Nasal Cannula 3.0 97.7 I & O 11/06/20 11/06/20 11/07/20 15:00 23:00 07:00 Intake Total 605 ml 1200 ml 120 ml Output Total 750 ml 1675 ml 850 ml Balance -145 ml -475 ml -730 ml Physical Exam General: Alert, Oriented X3, Cooperative, No acute distress Heart: Regular rate Lungs: Wheezing, Crackles Abdomen: Normal bowel sounds Extremities: No cyanosis Skin: No breakdown, No significant lesion Labs Labs: Laboratory Tests Test 11/06/20 17:11 11/06/20 20:10 11/07/20 04:30 11/07/20 07:23 Glucose (Fingerstick) 197 mg/dL (70-99) 141 mg/dL (70-99) 181 mg/dL (70-99) Sodium Level 139 mmol/L (136-145) Potassium Level 4.8 mmol/L (3.5-5.1) Chloride Level 105 mmol/L (98-107) Carbon Dioxide Level 27 mmol/L (21-32) Anion Gap 7 (6-14) Blood Urea Nitrogen 45 mg/dL (8-26) Creatinine 2.2 mg/dL (0.7-1.3) Estimated GFR (Cockcroft-Gault) 37.7 Glucose Level 223 mg/dL (70-99) Calcium Level 8.1 mg/dL (8.5-10.1) Creatine Kinase 120 U/L (39-308) Test 11/07/20 11:24 Glucose (Fingerstick) 87 mg/dL (70-99) Assessment and Plan Assessmemt and Plan Problems Medical Problems: (1) Chest pain Status: Acute (2) CHF exacerbation Status: Acute (3) HTN (hypertension) Status: Acute (4) Person under investigation for COVID-19 Status: Acute Comment Review of Relevant I have reviewed the following items karissa (where applicable) has been applied. Medications: Current Medications Medications (Trade) Dose Ordered Sig/Kiera Route PRN Reason Start Time Stop Time Status Last Admin Dose Admin Heparin Sodium (Porcine) (Heparin Sodium) 5,000 unit Q8HRS SQ 11/06/20 14:00 11/07/20 05:51 Justifications for Admission Other Justification Acute respiratory failure with hypoxia, acute diastolic CHF exacerbation, right breast mass LEVAR MOREIRA MD Nov 07, 2020 13:44
[2020-11-07] MEDS: HYDROcodone/APAP 5/325MG 1 TAB TABLET PO PRN ×2 (14:34→20:47)
--- NOTE | 2020-11-07 19:20 | NUR ---
Pt sitting on side of bed assessment completed vss poc explained pt c/o pain to lt foot will medicate pt and continue to monitor pt. Pt advised to elevate lower extremities will resume care and continue to monitor pt.Call light in reach.
[2020-11-07] MEDS: ATORVASTATIN CALCIUM 20 MG TABLET PO SCH (20:46)
[2020-11-07] MEDS: INSULIN GLARGINE SYRINGE. SQ SCH (20:49)
[2020-11-07] MEDS: PATCH REMOVAL. MC SCH (20:51)
[2020-11-08 02:53] VITALS: BP 178/68
[2020-11-08] MEDS: PANTOPRAZOLE 40 MG TABLET.DR. PO SCH (05:32)
[2020-11-08] MEDS: HEPARIN for SUB-Q USE 5,000 UNIT/ML VIAL. SQ SCH (05:41)
[2020-11-08 06:01] LABS: CALCIUM 8.7 mg/dL (8.5-10.1); CREATININE 2.2 mg/dL (0.7-1.3); GFR 37.7; MAGNESIUM 1.8 mg/dL (1.8-2.4)
[2020-11-08 07:00] VITALS: BP 174/47
[2020-11-08] MEDS: LIDOCAINE (700MG/PATCH) PATCH. TD SCH (09:00)
[2020-11-08] MEDS: BUMETANIDE 1 MG TABLET. PO SCH (09:12)
[2020-11-08] MEDS: GABAPENTIN 300 MG CAPSULE. PO SCH ×2 (09:12→14:15)
[2020-11-08] MEDS: IRON POLYSACCHARIDE COMPLEX 150 MG CAPSULE PO SCH (09:13)
[2020-11-08] MEDS: ASPIRIN CHEWABLE 81 MG TABLET. PO SCH (09:13)
[2020-11-08] MEDS: CLOPIDOGREL BISULFATE 75 MG TABLET PO SCH (09:13)
[2020-11-08] MEDS: DULoxetine HCL 30 MG CAPSULE.DR PO SCH (09:13)
[2020-11-08] MEDS: TAMSULOSIN 0.4 MG CAP.ER.24H. PO SCH (09:14)
[2020-11-08] MEDS: ISOSORBIDE DINITRATE 10 MG TABLET. PO SCH (09:14)
[2020-11-08] MEDS: CARVEDILOL 12.5 MG TABLET. PO SCH (09:15)
[2020-11-08] MEDS: amLODIPine BESYLATE 10 MG TABLET PO SCH (09:15)
[2020-11-08] MEDS: metOLazone 2.5 MG TABLET PO SCH (09:16)
[2020-11-08] MEDS: INSULIN LISPRO 300 UNITS/3 ML VIAL. SQ SCH ×2 (09:18→12:45)
--- NOTE | 2020-11-08 09:55 | PDOC ---
PROGRESS NOTES Date of Service DATE: 11/08/20 TIME: 09:53 Subjective Subjective No new complaints. Objective Objective Vital Signs Date Time Temp Pulse Resp B/P (MAP) Pulse Ox O2 Delivery O2 Flow Rate FiO2 11/08/20 09:15 68 174/47 11/08/20 07:00 98.1 22 96 Nasal Cannula 2.0 98.1 Intake and Output 11/08/20 07:00 Intake Total 1700 ml Output Total 4325 ml Balance -2625 ml Intake Oral 1700 ml Output Urine Total 4325 ml Physical Exam Physical Exam He is alert,sitting at edge of bed with oxygen by nasal canula and he is walking with roller walker for short distances with wide based gait and physical therapy to try managing stairs today. Assessment Assessment Problems Medical Problems: (1) Chest pain Status: Acute (2) CHF exacerbation Status: Acute (3) HTN (hypertension) Status: Acute (4) Person under investigation for COVID-19 Status: Acute Plan Plan of Care To continue present rehab efforts as tolerated. Comment Review of Relevant I have reviewed the following items karissa (where applicable) has been applied. Labs Laboratory Tests Test 11/06/20 12:04 11/06/20 13:00 11/06/20 17:11 11/06/20 20:10 Glucose (Fingerstick) 91 mg/dL (70-99) 197 mg/dL (70-99) 141 mg/dL (70-99) O2 Saturation 97 % (92-99) Arterial Blood pH 7.37 (7.35-7.45) Arterial Blood pCO2 at Patient Temp 42 mmHg (35-46) Arterial Blood pO2 at Patient Temp 90 mmHg (75-108) Arterial Blood HCO3 24 mmol/L (21-28) Arterial Blood Base Excess -2 mmol/L (-3-3) FiO2 3l nc Test 11/07/20 04:30 11/07/20 07:23 11/07/20 11:24 11/07/20 16:45 Sodium Level 139 mmol/L (136-145) Potassium Level 4.8 mmol/L (3.5-5.1) Chloride Level 105 mmol/L (98-107) Carbon Dioxide Level 27 mmol/L (21-32) Anion Gap 7 (6-14) Blood Urea Nitrogen 45 mg/dL (8-26) Creatinine 2.2 mg/dL (0.7-1.3) Estimated GFR (Cockcroft-Gault) 37.7 Glucose Level 223 mg/dL (70-99) Calcium Level 8.1 mg/dL (8.5-10.1) Creatine Kinase 120 U/L (39-308) Glucose (Fingerstick) 181 mg/dL (70-99) 87 mg/dL (70-99) 149 mg/dL (70-99) Test 11/07/20 20:43 11/08/20 05:40 11/08/20 07:30 Glucose (Fingerstick) 147 mg/dL (70-99) 143 mg/dL (70-99) Sodium Level 141 mmol/L (136-145) Potassium Level 5.0 mmol/L (3.5-5.1) Chloride Level 105 mmol/L (98-107) Carbon Dioxide Level 27 mmol/L (21-32) Anion Gap 9 (6-14) Blood Urea Nitrogen 43 mg/dL (8-26) Creatinine 2.2 mg/dL (0.7-1.3) Estimated GFR (Cockcroft-Gault) 37.7 Glucose Level 161 mg/dL (70-99) Calcium Level 8.7 mg/dL (8.5-10.1) Magnesium Level 1.8 mg/dL (1.8-2.4) Creatine Kinase 132 U/L (39-308) Laboratory Tests Test 11/07/20 11:24 11/07/20 16:45 11/07/20 20:43 11/08/20 05:40 Glucose (Fingerstick) 87 mg/dL (70-99) 149 mg/dL (70-99) 147 mg/dL (70-99) Sodium Level 141 mmol/L (136-145) Potassium Level 5.0 mmol/L (3.5-5.1) Chloride Level 105 mmol/L (98-107) Carbon Dioxide Level 27 mmol/L (21-32) Anion Gap 9 (6-14) Blood Urea Nitrogen 43 mg/dL (8-26) Creatinine 2.2 mg/dL (0.7-1.3) Estimated GFR (Cockcroft-Gault) 37.7 Glucose Level 161 mg/dL (70-99) Calcium Level 8.7 mg/dL (8.5-10.1) Magnesium Level 1.8 mg/dL (1.8-2.4) Creatine Kinase 132 U/L (39-308) Test 11/08/20 07:30 Glucose (Fingerstick) 143 mg/dL (70-99) Microbiology 10/31/20 Gram Stain - Final, Complete 10/31/20 Aerobic and Anaerobic Culture - Final, Complete 10/30/20 Urine Culture - Final, Complete Medications Current Medications Nitroglycerin (Nitro-Bid Oint) 1 inch 1X ONCE TP Last administered on 10/20/20at 13:22; Start 10/20/20 at 13:15; Stop 10/20/20 at 13:16; Status DC Morphine Sulfate (Morphine Sulfate) 4 mg 1X ONCE IV Last administered on 10/20/20at 13:23; Start 10/20/20 at 13:15; Stop 10/20/20 at 13:16; Status DC Furosemide (Lasix) 80 mg 1X ONCE IVP Last administered on 10/20/20at 16:25; Start 10/20/20 at 15:45; Stop 10/20/20 at 15:46; Status DC Hydralazine HCl (Apresoline Inj) 10 mg PRN Q20MIN PRN IVP ELEVATED BP, SEE COMMENTS Last administered on 11/07/20at 03:09; Start 10/20/20 at 15:30 Furosemide (Lasix) 80 mg [id number] PO Last administered on 10/23/20at 08:11; Start 10/21/20 at 09:00; Stop 10/24/20 at 15:14; Status DC Insulin Human Lispro (HumaLOG) 0-9 UNITS TIDWMEALS SQ Last administered on 11/03/20at 12:31; Start 10/20/20 at 17:00; Stop 11/04/20 at 15:01; Status DC Dextrose (Dextrose 50%-Water Syringe) 12.5 gm PRN Q15MIN PRN IV SEE COMMENTS; Start 10/20/20 at 15:45 Ondansetron HCl (Zofran) 4 mg PRN Q6HRS PRN IVP NAUSEA/VOMITING Last administered on 10/22/20at 11:57; Start 10/20/20 at 16:15 Al Hydroxide/Mg Hydroxide (Mylanta Plus Xs) 30 ml PRN Q3HRS PRN PO HEARTBURN / GAS; Start 10/20/20 at 16:15; Stop 10/31/20 at 12:38; Status DC Calcium Carbonate/ Glycine (Tums) 500 mg PRN Q3HRS PRN PO UPSET STOMACH; Start 10/20/20 at 16:15 Zolpidem Tartrate (Ambien) 5 mg PRN QHS PRN PO INSOMNIA, MAY REPEAT IN 1HR Last administered on 11/02/20at 21:45; Start 10/20/20 at 16:15 Acetaminophen (Tylenol) 650 mg PRN Q6HRS PRN PO Headaches, Temp > 101.5F Last administered on 10/25/20at 14:19; Start 10/20/20 at 16:15 Magnesium Hydroxide (Milk Of Magnesia) 2,400 mg PRN Q12HR PRN PO CONSTIPATION (1ST CHOICE) Last administered on 10/22/20at 06:11; Start 10/20/20 at 16:15; Stop 10/31/20 at 12:37; Status DC Bisacodyl (Dulcolax Supp) 10 mg PRN DAILY PRN VT CONSTIPATION; Start 10/20/20 at 16:15 Heparin Sodium (Porcine) (Heparin Sodium) 5,000 unit Q8HRS SQ Last administered on 10/29/20at 05:59; Start 10/20/20 at 16:30; Stop 10/29/20 at 07:14; Status DC Morphine Sulfate (Morphine Sulfate) 4 mg PRN Q2HR PRN IV MODERATE TO SEVERE PAIN Last administered on 11/07/20at 16:40; Start 10/20/20 at 16:30 Tramadol HCl (Ultram) 50 mg PRN Q6HRS PRN PO MILD TO MODERATE PAIN Last administered on 10/24/20at 08:25; Start 10/20/20 at 16:30; Stop 10/30/20 at 20:36; Status DC Amlodipine Besylate (Norvasc) 10 mg DAILY PO Last administered on 11/08/20at 09:15; Start 10/21/20 at 09:00 Aspirin (Aspirin Chewable) 81 mg DAILYWBKFT PO Last administered on 11/08/20at 09:13; Start 10/21/20 at 08:00 Clopidogrel Bisulfate (Plavix) 75 mg DAILY PO Last administered on 11/08/20at 09:13; Start 10/21/20 at 09:00 Furosemide (Lasix) 80 mg BID92 PO Last administered on 10/21/20 08:54; Start 10/20/20 at 17:30; Stop 10/21/20 at 09:37; Status DC Pantoprazole Sodium (Protonix) 40 mg BIDAC PO Last administered on 11/08/20at 05:32; Start 10/20/20 at 17:30 Senna/Docusate Sodium (Senna Plus) 2 tab PRN QEVNG PRN PO CONSTIPATION; Start 10/20/20 at 17:30 Spironolactone (Aldactone) 25 mg DAILY PO Last administered on 10/21/20at 08:52; Start 10/21/20 at 09:00; Stop 10/21/20 at 14:06; Status DC Tamsulosin HCl (Flomax) 0.4 mg DAILY PO Last administered on 11/08/20at 09:14; Start 10/21/20 at 09:00 Carvedilol (Coreg) 25 mg BIDWMEALS PO Last administered on 11/08/20at 09:15; Start 10/20/20 at 17:30 Gabapentin (Neurontin) 300 mg TID PO Last administered on 11/08/20 09:12; Start 10/20/20 at 21:00 Hydralazine HCl (Apresoline) 100 mg TID PO Last administered on 11/08/20 09:15; Start 10/20/20 at 21:00 Insulin Human Lispro (HumaLOG) 30 units TIDWMEALS SQ Last administered on 11/04/20at 12:00; Start 10/21/20 at 08:00; Stop 11/04/20 at 15:01; Status DC Insulin Glargine (Lantus Syringe) 60 unit QHS SQ Last administered on 10/22/20at 21:17; Start 10/20/20 at 21:00; Stop 10/23/20 at 13:07; Status DC Isosorbide Dinitrate (Isordil) 5 mg TID PO Last administered on 11/08/20at 09:14; Start 10/20/20 at 21:00 Atorvastatin Calcium (Lipitor) 80 mg QHS PO Last administered on 10/24/20at 21:42; Start 10/20/20 at 21:00; Stop 10/25/20 at 13:42; Status DC Lorazepam (Ativan Inj) 1 mg PRN Q4HRS PRN IVP ANXIETY / AGITATION Last administered on 11/07/20at 22:38; Start 10/20/20 at 17:30 Insulin Glargine (Lantus Syringe) 70 unit QHS SQ Last administered on 11/03/20at 21:12; Start 10/23/20 at 21:00; Stop 11/04/20 at 15:01; Status DC Lidocaine (Lidoderm) 2 patch DAILY TD Last administered on 11/07/20at 08:41; Start 10/24/20 at 09:00 Miscellaneous (Lidoderm Patch Removal) 1 ea QHS MC Last administered on 11/07/20at 20:51; Start 10/24/20 at 21:00 Polysaccharide Iron Complex (Niferex 150) 150 mg DAILY PO Last administered on 11/08/20at 09:13; Start 10/24/20 at 14:00 Sodium Chloride 1,000 ml @ 75 mls/hr [id number] ONCE IV ; Start 10/25/20 at 11:15; Stop 10/25/20 at 13:42; Status DC Sodium Chloride 1,000 ml @ 75 mls/hr [id number] IV Last administered on 10/28/20at 20:48; Start 10/25/20 at 14:00; Stop 10/30/20 at 13:30; Status DC Duloxetine HCl (Cymbalta) 30 mg DAILY PO Last administered on 10/27/20at 08:03; Start 10/25/20 at 15:00; Stop 10/27/20 at 13:33; Status DC Lactulose (Lactulose) 20 gm 1X ONCE PO Last administered on 10/26/20at 12:47; Start 10/26/20 at 10:30; Stop 10/26/20 at 10:31; Status DC Lactulose (Lactulose) 20 gm 1X ONCE PO Last administered on 10/26/20at 12:47; Start 10/26/20 at 10:30; Stop 10/26/20 at 10:31; Status DC Duloxetine HCl (Cymbalta) 60 mg DAILY PO Last administered on 11/08/20at 09:13; Start 10/28/20 at 09:00 Furosemide (Lasix) 40 mg 1X ONCE IVP Last administered on 10/30/20at 12:37; Start 10/30/20 at 12:15; Stop 10/30/20 at 12:20; Status DC Morphine Sulfate (Morphine Sulfate) 4 mg 1X ONCE IM ; Start 10/30/20 at 20:45; Stop 10/30/20 at 20:46; Status Cancel Ceftriaxone Sodium (Rocephin) 1 gm Q24H IVP Last administered on 11/03/20at 21:06; Start 10/30/20 at 21:00; Stop 11/04/20 at 14:58; Status DC Furosemide (Lasix) 40 mg 1X ONCE IVP Last administered on 10/30/20at 21:00; Start 10/30/20 at 21:00; Stop 10/30/20 at 21:01; Status DC Morphine Sulfate (Morphine Sulfate) 4 mg 1X ONCE IV Last administered on 10/30/20at 22:00; Start 10/30/20 at 22:00; Stop 10/30/20 at 22:01; Status DC Fentanyl Citrate (Fentanyl 2ml Vial) 100 mcg STK-MED ONCE .ROUTE ; Start 10/31/20 at 12:18; Stop 10/31/20 at 12:19; Status DC Midazolam HCl (Versed) 2 mg STK-MED ONCE .ROUTE ; Start 10/31/20 at 12:18; Stop 10/31/20 at 12:19; Status DC Heparin Sodium/ Sodium Chloride 1,000 ml @ As Directed STK-MED ONCE .ROUTE ; Start 10/31/20 at 12:19; Stop 10/31/20 at 12:19; Status DC Lidocaine HCl (Lidocaine 1% 20ml Vial) 20 ml STK-MED ONCE .ROUTE ; Start 10/31/20 at 12:28; Stop 10/31/20 at 12:28; Status DC Heparin Sodium/ Sodium Chloride (HEPARIN for ARTERIAL LINE FLUSH) 1,000 unit 1X ONCE IART Last administered on 10/31/20at 13:35; Start 10/31/20 at 12:30; Stop 10/31/20 at 12:32; Status DC Heparin Sodium/ Sodium Chloride (HEPARIN for ARTERIAL LINE FLUSH) 1,000 unit 1X ONCE IART Last administered on 10/31/20at 13:35; Start 10/31/20 at 12:30; Stop 10/31/20 at 12:32; Status DC Midazolam HCl (Versed) 2 mg 1X ONCE IV Last administered on 10/31/20at 13:35; Start 10/31/20 at 12:30; Stop 10/31/20 at 12:32; Status DC Fentanyl Citrate (Fentanyl 2ml Vial) 100 mcg 1X ONCE IV Last administered on 10/31/20at 13:35; Start 10/31/20 at 12:30; Stop 10/31/20 at 12:32; Status DC Lidocaine HCl (Lidocaine 1% 20ml Vial) 20 ml 1X ONCE INJ Last administered on 10/31/20at 13:34; Start 10/31/20 at 12:30; Stop 10/31/20 at 12:32; Status DC Acetaminophen/ Hydrocodone Bitart (Lortab 5/325) 1 tab PRN Q6HRS PRN PO PAIN Last administered on 11/07/20at 20:47; Start 10/31/20 at 12:30 Furosemide (Lasix) 100 mg STK-MED ONCE .ROUTE ; Start 10/31/20 at 13:19; Stop 10/31/20 at 13:19; Status DC Furosemide (Lasix) 80 mg 1X ONCE IVP Last administered on 10/31/20at 13:36; Start 10/31/20 at 13:30; Stop 10/31/20 at 13:31; Status DC Lidocaine HCl (Glydo (Lidocaine) Jelly) 1 nathalie 1X ONCE MM ; Start 11/01/20 at 02:30; Stop 11/01/20 at 02:31; Status DC Metolazone (Zaroxolyn) 2.5 mg DAILY PO Last administered on 11/08/20at 09:16; Start 11/02/20 at 14:00 Atorvastatin Calcium (Lipitor) 20 mg QHS PO Last administered on 11/07/20at 20:46; Start 11/02/20 at 21:00 Furosemide (Lasix) 100 mg 1X ONCE IVP ; Start 11/03/20 at 13:15; Stop 11/03/20 at 13:18; Status DC Oxycodone HCl (Roxicodone) 10 mg 1X ONCE PO Last administered on 11/03/20at 2 0:49; Start 11/03/20 at 20:00; Stop 11/03/20 at 20:05; Status DC Furosemide (Lasix) 100 mg 1X ONCE IVP ; Start 11/04/20 at 09:00; Stop 11/04/20 at 09:01; Status DC Furosemide (Lasix) 40 mg 1X ONCE IVP Last administered on 11/04/20at 12:13; Start 11/04/20 at 12:00; Stop 11/04/20 at 12:01; Status DC Albuterol Sulfate (Ventolin Neb Soln) 2.5 mg PRN Q6HRS PRN NEB SHORTNESS OF KHARI ATH Last administered on 11/04/20at 16:05; Start 11/04/20 at 13:00 Insulin Glargine (Lantus Syringe) 38 unit QHS SQ Last administered on 11/07/20at 20:49; Start 11/04/20 at 21:00 Insulin Human Lispro (HumaLOG) 13 units TIDWMEALS SQ Last administered on 10/18 12/04at 09:18; Start 11/04/20 at 17:00 Dextrose (Dextrose 50%-Water Syringe) 12.5 gm PRN Q15MIN PRN IV SEE COMMENTS; Start 11/04/20 at 15:15; Status UNV Sodium Polystyrene Sulfonate (Kayexalate) 45 gm 1X ONCE PO ; Start 11/05/20 at 13:00; Stop 11/05/20 at 13:01; Status DC Bumetanide (Bumex) 1 mg BID94 PO Last administered on 11/08/20at 09:12; Start 11/06/20 at 09:00 Sodium Polystyrene Sulfonate (Kayexalate) 45 gm 1X ONCE PO Last administered on 11/06/20at 09:38; Start 11/06/20 at 10:00; Stop 11/06/20 at 10:01; Status DC Heparin Sodium (Porcine) (Heparin Sodium) 5,000 unit Q8HRS SQ Last administered on 11/08/20at 05:41; Start 11/06/20 at 14:00 Active Scripts Active Flomax (Tamsulosin Hcl) 0.4 Mg Cap.er.24h 0.4 Mg PO DAILY Children's Aspirin (Aspirin) 81 Mg Tab.chew 81 Mg PO DAILYWBKFT Reported Senna-Docusate Sodium Tablet (Sennosides/Docusate Sodium) 1 Each Tablet 2 Tab PO PRN QEVNG PRN 5 Days Spironolactone 25 Mg Tablet 25 Mg PO DAILY Vitamin D2 (Ergocalciferol (Vitamin D2)) 1,250 Mcg Capsule 1,250 Mcg PO WEEKLY Lasix (Furosemide) 80 Mg Tablet 80 Mg PO BID Clopidogrel (Clopidogrel Bisulfate) 75 Mg Tablet 75 Mg PO DAILY Carvedilol 25 Mg Tablet 25 Mg PO BIDWMEALS Isosorbide Dinitrate 40 Mg Tablet.er 5 Mg PO TID Gabapentin 600 Mg Tablet 300 Mg PO TID Protonix (Pantoprazole Sodium) 40 Mg Tablet.dr 40 Mg PO BID Hydralazine Hcl 100 Mg Tablet 100 Mg PO TID Amlodipine Besylate 10 Mg Tablet 10 Mg PO DAILY Crestor (Rosuvastatin Calcium) 20 Mg Tablet 20 Mg PO QHS Levemir Flexpen (Insulin Detemir) 100 Unit/1 Ml Insuln.pen 60 Unit SQ HS Novolog Flexpen (Insulin Aspart) 100 Unit/1 Ml Insuln.pen 30 Unit SQ TIDAC Vitals/I & O Vital Sign - Last 24 Hours 11/07/20 11/07/20 11/07/20 11/07/20 11:13 14:34 14:34 14:35 Temp 97.7 97.7 Pulse 62 62 62 Resp 20 B/P (MAP) 133/64 (87) 133/64 133/64 Pulse Ox 98 O2 Delivery Nasal Cannula Room Air O2 Flow Rate 3.0 11/07/20 11/07/20 11/07/20 11/07/20 15:07 15:45 16:40 17:20 Temp 98.1 98.1 Pulse 67 Resp 20 B/P (MAP) 156/46 (82) Pulse Ox 98 O2 Delivery Nasal Cannula Room Air Nasal Cannula Nasal Cannula O2 Flow Rate 3.0 2.0 2.0 11/07/20 11/07/20 11/07/20 11/07/20 17:23 19:25 19:27 20:47 Temp 97.8 97.8 Pulse 67 63 63 Resp 18 B/P (MAP) 156/46 181/62 (101) 181/62 Pulse Ox 96 O2 Delivery Nasal Cannula Room Air O2 Flow Rate 3.0 3.0 11/07/20 11/07/20 11/07/20 11/07/20 20:47 20:47 20:54 21:47 Pulse 63 Resp 18 18 B/P (MAP) 181/62 Pulse Ox 96 96 96 O2 Delivery Nasal Cannula Room Air Nasal Cannula O2 Flow Rate 3.0 2.0 11/07/20 11/08/20 11/08/20 11/08/20 22:12 02:53 07:00 09:14 Temp 97.8 98.3 98.1 97.8 98.3 98.1 Pulse 63 65 68 68 Resp 18 18 22 B/P (MAP) 140/62 (88) 178/68 (104) 174/47 (89) 174/47 Pulse Ox 97 94 96 O2 Delivery Nasal Cannula Nasal Cannula Nasal Cannula O2 Flow Rate 2.0 2.0 2.0 11/08/20 11/08/20 11/08/20 09:15 09:15 09:15 Pulse 68 68 68 B/P (MAP) 174/47 174/47 174/47 Intake and Output 11/07/20 11/07/20 11/08/20 15:00 23:00 07:00 Intake Total 600 ml 600 ml 500 ml Output Total 1100 ml 2325 ml 900 ml Balance -500 ml -1725 ml -400 ml Justifications for Admission Other Justification Acute respiratory failure with hypoxia, acute diastolic CHF exacerbation, right breast mass RYLEY ELLISON MD Nov 08, 2020 09:55
--- NOTE | 2020-11-08 10:12 | PDOC ---
Date of Service: DATE: 11/08/20 TIME: 10:10 Objective: Objective: D/w nurse - possible DC home, wonders about rechecking Hgb. Vital Signs: Vital Signs Date Time Temp Pulse Resp B/P (MAP) Pulse Ox O2 Delivery O2 Flow Rate FiO2 11/08/20 09:15 68 174/47 11/08/20 07:00 98.1 22 96 Nasal Cannula 2.0 98.1 Labs: Laboratory Tests Test 11/07/20 11:24 11/07/20 16:45 11/07/20 20:43 11/08/20 07:30 Glucose (Fingerstick) 87 mg/dL (70-99) 149 mg/dL (70-99) 147 mg/dL (70-99) 143 mg/dL (70-99) PE: GEN: NAD, breakfast 100% consumed NEURO/PSYCH: sleeping, not awakened A/P: CHF, CKD CORY, GERD -- DC per primary on iron and PPI, follow-up for outpt scopes. Justicifation of Admission Dx: Justifications for Admission: Justification of Admission Dx: N/A CHRISTIANE SOLITARIO Nov 08, 2020 10:11
[2020-11-08 10:20] LABS: HEMATOCRIT 26.9 % (39.0-53.0); HEMOGLOBIN 8.4 g/dL (13.0-17.5)
[2020-11-08 11:25] VITALS: BP 126/51
--- NOTE | 2020-11-08 12:01 | NUR ---
SS following up with discharge planning. SS reviewed pt chart and discussed with pt RN. Pt is currently requiring oxygen at three liters nasal canula. Six minute walk ordered to assess for oxygen needs. Pt accepted on services with [facility], ; fax [phone]. Discharge plan is to home with home healthcare. SS will continue to follow for discharge planning.
--- NOTE | 2020-11-08 13:00 | SNU/HH DC ---
DISCHARGE WITH HOME HEALTH DISCHARGE INFORMATION: Discharge Date: Nov 08, 2020 Final Diagnosis: Problems Medical Problems: (1) Chest pain Status: Acute (2) CHF exacerbation Status: Acute (3) HTN (hypertension) Status: Acute (4) Person under investigation for COVID-19 Status: Acute Condition on Discharge: Stable CODE STATUS: Code Status: Full HOME HEALTH: Face to Face: I certify this patient is under my care and that I, or a nurse practitioner or physician's printer's assistant working with me, had a face to face encounter that meets the physician face to face encounter requirements with this patient on []. Medical Complications: CHF Chcf For: Assess Cardiopulm Status, Medication Management RN For Eval/Treatment: Yes Physical Therapy For: Evalulation/Treatment Occupational Therapy For: Evaluation/Treatment Home Health Aide For: Self-care Pt Meets Homebound Status: Fatigue w/ amb., Limited distance walking POST DISCHARGE ORDERS: Activity Instructions for Disc: Activity as tolerated Weight Bearing Status after Di: As tolerated DIET AFTER DISCHARGE: Cardiac Wound/Incision Care: No wound care needed CHECKS AFTER DISCHARGE: Checks after discharge: Check blood sugar, ac/hs FOLLOW-UP: Follow up with: PCP within 2 weeks of discharge Follow Up With: Cardiology as scheduled TREATMENT/EQUIPMENT ORDERS: Adaptive Equipment Issued: None Discharge Respiratory Equipmen: Oxygen CERTIFICATION STATEMENT: Certification Statement: Certification Statement: Based on the above finding, I certify that this patient is confined to the home and needs intermittent snf care, physical therapy and/or speech therapy, or continues to need occupational therapy.~ This patient is under my care, and I have initiated the establishment of the plan of care.~ This patient will be followed by myself or a community physician who will periodically review the plan of care. Home Meds Active Scripts Tamsulosin Hcl (FLOMAX) 0.4 Mg Cap.er.24h, 0.4 MG PO DAILY, #30 Prov:MICHAEL TONG MD 06/19/16 Aspirin (Children's Aspirin) 81 Mg Tab.chew, 81 MG PO DAILYWBKFT, #30 TAB.CHEW Prov:MICHAEL TONG MD 06/19/16 Reported Medications Sennosides/Docusate Sodium (Senna-Docusate Sodium Tablet) 1 Each Tablet, 2 TAB PO PRN QEVNG PRN for CONSTIPATION for 5 Days, TAB 0 Refills 10/20/20 Spironolactone (SPIRONOLACTONE) 25 Mg Tablet, 25 MG PO DAILY for CHF, TAB 10/20/20 Ergocalciferol (Vitamin D2) (Vitamin D2) 1,250 Mcg Capsule, 1250 MCG PO WEEKLY for bone strength, CAP 10/20/20 Furosemide (LASIX) 80 Mg Tablet, 80 MG PO BID for CHF, TAB 10/20/20 Clopidogrel Bisulfate (CLOPIDOGREL) 75 Mg Tablet, 75 MG PO DAILY for TO PREVENT BLOOD CLOTS, #30 TAB 0 Refills 10/20/20 Carvedilol (CARVEDILOL) 25 Mg Tablet, 25 MG PO BIDWMEALS for CARDIAC, TAB 10/20/20 Isosorbide Dinitrate (ISOSORBIDE DINITRATE) 40 Mg Tablet.er, 5 MG PO TID for HTN, TAB.SR 10/20/20 Gabapentin (GABAPENTIN) 600 Mg Tablet, 300 MG PO TID for NEUROGENIC PAIN, TAB 10/20/20 Pantoprazole Sodium (PROTONIX ) 40 Mg Tablet.dr, 40 MG PO BID for GERD, TAB 10/20/20 Hydralazine Hcl (HYDRALAZINE HCL) 100 Mg Tablet, 100 MG PO TID for HTN, TAB 10/20/20 Amlodipine Besylate (AMLODIPINE BESYLATE) 10 Mg Tablet, 10 MG PO DAILY, TAB 06/06/16 Rosuvastatin Calcium (CRESTOR) 20 Mg Tablet, 20 MG PO QHS 11/22/13 Insulin Detemir (LEVEMIR FLEXPEN) 100 Unit/1 Ml Insuln.pen, 60 UNIT SQ HS for DM 11/22/13 Insulin Aspart (NOVOLOG FLEXPEN) 100 Unit/1 Ml Insuln.pen, 30 UNIT SQ TIDAC for DM 11/22/13 LEVAR MOREIRA MD Nov 08, 2020 13:00
[2020-11-08 14:50] VITALS: BP 150/59
--- NOTE | 2020-11-08 14:54 | NUR ---
SS following up with discharge planning. SS reviewed pt chart and discussed with pt RN. Discharge orders received for home healthcare. SS phoned and faxed discharge orders to [facility], ; fax [phone]. SS currently awaiting six minute walk and will proceed accordingly. SS will continue to follow for discharge planning.
--- NOTE | 2020-11-08 15:13 | NUR ---
RT CALLED BACK AND SAID SHE WOULD BE UP TO PERFORM 6 MIN WALK AFTER TRANSFERRING A PT TO ICU.
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
[2020-11-08] MEDS ORDERED: BUME1TAB3 PO (15:26)
[2020-11-08] MEDS ORDERED: METO2.5T PO (15:26)
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
--- NOTE | 2020-11-08 16:34 | NUR ---
SS following up with discharge planning. Six minute walk completed. Per RN, pt did not required oxygen for home.
[2020-11-08] MEDS ORDERED: ISOS30TA68 PO (16:54)
--- NOTE | 2020-11-08 17:15 | NUR ---
Entered patients room to advise of discharge order with no need for home O2. Patient appeared to be upset about discharge and demanded for this RN to remove the central line "right now". I explained to the patient that will be done once I gather the necessary supplies and he yelled "I don't know whats taking so long. If you are going to discharge me just discharge me". I advised patient to call his ride
--- NOTE | 2020-11-08 19:41 | PDOC3 ---
[facility]-Discharge Summary Date of Admission: Date of Admission: Oct 20, 2020 Date of Discharge: Date of Discharge: Nov 08, 2020 Discharge Diagnosis: Discharge Diagnosis: Acute respiratory failure with hypoxia Acute diastolic heart failure (CHF) aortic stenosis Elevated brain natriuretic peptide (BNP) level Pulmonary HTN , severe due to cocaine abuse CKD Normocytic anemia Hypertensive urgency moderate mitral regurgitation. Right breast mass Malnutrition normocytic anemia CKD stage 3 B- Seen by [employer] [employer] renal . Cr was at his baseline at [facility] Peripheral neuropathy, most likely from diabetes exacerbated by acute metabolic issues including anemia and renal failure. Consider acute inflammatory demyelinating neuropathy, Hospital Course: Hospital Course: By day of discharge, patient clinically improved and his mobility improved. He was diuresing well on metolazone and Bumex for which he will be discharged with. He will need to keep close follow up with his clinical pharmacy coordinator. Readmission is high for this patient. Rest of his hospital course was uneventful. 11/07/2020 No acute events overnight. Patient continues to complain of weakness during ambulation and shortness of breath upon exertion. Encourage patient needs to be motivated for rehab modalities. We will continue with fluid removal via current diuresis. Improved lower extremity swelling. Patient continues to have net negative fluid balance. Total of -1.3 L output. Patient's chart, labs, images were reviewed and discussed with RN 11/06. right ankle pain and swelling, will ultrasound, heparin 5k tid cont other, OOB to chair, cont PT and OT, he looks a lot better, may be able to DC soon 11/05: Patient seen and evaluated. Afebrile. Extremely dyspneic today. UA ob tained yesterday negative for acute infection. We will continue to diurese with Bumex 1 mg p.o. twice daily. Continue to monitor kidney function. Continue to monitor I's and O's. Discussed with patient, he really needs skilled. 11/04: Patient seen and evaluated. Afebrile. Patient positive for cocaine and PCP in hospital. Will he does admit to doing cocaine prior to admission he still denies using cocaine while in the hospital. Patient's cousin is in room who can verify his claims. Noncompliant with cardiac diet. Fluctuating blood sugars with some in low 50s. Will adjust insulin medication. Notes improvement in penile edema. Still complains of some dysuria. Possibly secondary to having Alvarez catheter and. Will obtain UA. Breathing treatments as needed. We will continue to diurese. Recommending acute rehab but if insurance does not cover, will need home health at minimum. Discussed with RN. 11/03 , discussed his urine drug screen from 10/29, where he tested positive to cocaine and PCP - he denies vehemently and stared me down in a weird way./ I discussed that guys who do cocaine dont usually live past age 56. He was mad and wanted me to "make him better" - I think his ability to improve is going to be limited 11-02 Patient seen and evaluated. Denies chest pain or shortness of breath. Net fluid balance continues to be negative. Creatinine continues to be stable around 2.4. Continue diuresis. Receiving Rocephin prophylactically for penile edema. 11-01 Patient seen and evaluated. Denies chest pain. He had left heart cath yesterday showing elevated biventricular filling pressures, moderate pulmonary pretension due to diastolic dysfunction, cor pulmonale. He was recommended to continue aggressive diuresis and monitor renal function. Discussed weight loss and treatment of ROXANNE. 10-31 Seen and evaluated. Still c/o intemittent chesty pain. CT penis yesterday showed soft tissue edema involving the penis scrotum, thought to be related to volume overload given diffuse soft tissue anasarca. [facility] today. Discussed with RN. 10-30 CATH IN AM,, moderate penile edema, perhaps related to ascites, will obtain ct penis and scrotum 10-29 remains anemic after one unit, consulted GI , NPO possible PUD , CT ABD, PELVIS 10-28 cr 2.5, transfused, D/W RN, AM CBC - remains SOA, using cpap at hs poor prognosis due to cocaine abuse, abg today 2-10 Peripheral neuropathy, most likely from diabetes rule out other causes, exacerbated by acute metabolic issues including anemia and renal failure. Co nsider acute inflammatory demyelinating neuropathy, D/W RN 10/25 - Pt is in moderate distress, states he is profoundly weak and is eager to get to the bottom on this problem. Discussed his continue compliance with cpap machine. Mr Moran is a 54yo M w/ PMHx Diabetes-Type II, High Cholesterol, Hypertension, Pancreatitis, CKD 4, presents to the ER with complaint of worsening shortness of breath of the past 3 days. He reports associated intermittent chest pain and bilateral lower extremity swelling. States his symptoms are worse with exertion. Upon arrival in the ED his BNP was 3029. He was placed on BiPAP given IV morphine with improvement of symptoms. States he has not taken any of his home medications today. He does report a tender lump in his right breast for the past 3 weeks, reports a family history of breast cancer. He denies any fever, sick contacts, or known COVID-19 exposure. Will admit patient for further medical management. 10/21: Patient seen and evaluated. Improved on BiPAP overnight. Afebrile, denies chest pain. Blood pressure better controlled. CBG 323 this morning. Of note patient did order two trays of nondiabetic meals, and had fried chicken delivered to his room last night. Discussed importance of cardiac and diabetic diet for his heart health. Continue to diurese with Lasix. Echocardiogram and ultrasound right breast pending. If appropriately diuresed and no concerning findings on right breast ultrasound, Disposition: Disposition/Orders: D/C to Home, D/C to Home w/ HH Activity: Activity: Resume previous activity Diet: Diet: Cardiac Medications: Home Meds Active Scripts Metolazone (METOLAZONE) 2.5 Mg Tablet, 2.5 MG PO DAILY for chf for 30 Days, #30 TAB Prov:LEVAR MOREIRA MD 11/08/20 Bumetanide (BUMETANIDE) 1 Mg Tablet, 1 MG PO BID94 for chf for 30 Days, #60 TAB Prov:LEVAR MOREIRA MD 11/08/20 Tamsulosin Hcl (FLOMAX) 0.4 Mg Cap.er.24h, 0.4 MG PO DAILY, #30 Prov:MICHAEL TONG MD 06/19/16 Aspirin (Children's Aspirin) 81 Mg Tab.chew, 81 MG PO DAILYWBKFT, #30 TAB.CHEW Prov:MICHAEL TONG MD 06/19/16 Reported Medications Isosorbide Mononitrate (ISOSORBIDE MONONITRATE ER) 30 Mg Tab.er.24h, 30 MG PO DAILY for , TAB.SR 11/08/20 Sennosides/Docusate Sodium (Senna-Docusate Sodium Tablet) 1 Each Tablet, 2 TAB PO PRN QEVNG PRN for CONSTIPATION for 5 Days, TAB 0 Refills 10/20/20 Ergocalciferol (Vitamin D2) (Vitamin D2) 1,250 Mcg Capsule, 1250 MCG PO WEEKLY for bone strength, CAP 10/20/20 Clopidogrel Bisulfate (CLOPIDOGREL) 75 Mg Tablet, 75 MG PO DAILY for TO PREVENT BLOOD CLOTS, #30 TAB 0 Refills 10/20/20 Carvedilol (CARVEDILOL) 25 Mg Tablet, 25 MG PO BIDWMEALS for CARDIAC, TAB 10/20/20 Gabapentin (GABAPENTIN) 600 Mg Tablet, 300 MG PO TID for NEUROGENIC PAIN, TAB 10/20/20 Pantoprazole Sodium (PROTONIX ) 40 Mg Tablet.dr, 40 MG PO BID for GERD, TAB 10/20/20 Hydralazine Hcl (HYDRALAZINE HCL) 100 Mg Tablet, 100 MG PO TID for HTN, TAB 10/20/20 Amlodipine Besylate (AMLODIPINE BESYLATE) 10 Mg Tablet, 10 MG PO DAILY, TAB 06/06/16 Rosuvastatin Calcium (CRESTOR) 20 Mg Tablet, 20 MG PO QHS 11/22/13 Insulin Detemir (LEVEMIR FLEXPEN) 100 Unit/1 Ml Insuln.pen, 60 UNIT SQ HS for DM 11/22/13 Insulin Aspart (NOVOLOG FLEXPEN) 100 Unit/1 Ml Insuln.pen, 30 UNIT SQ TIDAC for DM 11/22/13 Scheduled Amlodipine Besylate (Amlodipine Besylate), 10 MG PO DAILY, (Reported) Aspirin (Children's Aspirin), 81 MG PO DAILYWBKFT Bumetanide (Bumetanide), 1 MG PO BID94 Carvedilol (Carvedilol), 25 MG PO BIDWMEALS, (Reported) Clopidogrel Bisulfate (Clopidogrel), 75 MG PO DAILY, (Reported) Ergocalciferol (Vitamin D2) (Vitamin D2), 1,250 MCG PO WEEKLY, (Reported) Gabapentin (Gabapentin), 300 MG PO TID, (Reported) Hydralazine Hcl (Hydralazine Hcl), 100 MG PO TID, (Reported) Insulin Aspart (Novolog Flexpen), 30 UNIT SQ TIDAC, (Reported) Insulin Detemir (Levemir Flexpen), 60 UNIT SQ HS, (Reported) Isosorbide Mononitrate (Isosorbide Mononitrate Er), 30 MG PO DAILY, (Reported) Metolazone (Metolazone), 2.5 MG PO DAILY Pantoprazole Sodium (Protonix ), 40 MG PO BID, (Reported) Rosuvastatin Calcium (Crestor), 20 MG PO QHS, (Reported) Tamsulosin Hcl (Flomax), 0.4 MG PO DAILY Scheduled PRN Sennosides/Docusate Sodium (Senna-Docusate Sodium Tablet), 2 TAB PO PRN QEVNG PRN for CONSTIPATION, (Reported) Total Time: Total Time: Total time spent was 45 minutes in preparing scripts, discharge planning with SW and RN, and preparing this discharge summary. Patient seen and examined on day of discharge. Justicifation of Admission Dx: Justifications for Admission: Justification of Admission Dx: N/A LEVAR MOREIRA MD Nov 08, 2020 19:41
[2020-11-09] MEDS ORDERED: ISOSORBIDE MONONITRATE ER 30 MG TAB.ER.24H PO SCH (09:00)
== END 2020-11-08 17:36 | disposition home health service (06) | DRG 286 ==
LOC: ER 11:32 → 2 SOUTH 13:45
PROVIDERS: ADMIT Family Medicine; ATTEND Family Medicine
PROC: 5A09357 Assistance with Respiratory Ventilation, Less than 24 Consecutive Hours, Continuous Positive Airway Pressure (ICD-10-PCS; 2020-10-20)
PROC: 5A09357 Assistance with Respiratory Ventilation, Less than 24 Consecutive Hours, Continuous Positive Airway Pressure (ICD-10-PCS; 2020-10-21)
PROC: 5A09357 Assistance with Respiratory Ventilation, Less than 24 Consecutive Hours, Continuous Positive Airway Pressure (ICD-10-PCS; 2020-10-22)
PROC: 5A09357 Assistance with Respiratory Ventilation, Less than 24 Consecutive Hours, Continuous Positive Airway Pressure (ICD-10-PCS; 2020-10-24)
PROC: 5A09357 Assistance with Respiratory Ventilation, Less than 24 Consecutive Hours, Continuous Positive Airway Pressure (ICD-10-PCS; 2020-10-26)
PROC: 5A09357 Assistance with Respiratory Ventilation, Less than 24 Consecutive Hours, Continuous Positive Airway Pressure (ICD-10-PCS; 2020-10-27)
PROC: 30233N1 Transfusion of Nonautologous Red Blood Cells into Peripheral Vein, Percutaneous Approach (ICD-10-PCS; 2020-10-28)
PROC: 5A09357 Assistance with Respiratory Ventilation, Less than 24 Consecutive Hours, Continuous Positive Airway Pressure (ICD-10-PCS; 2020-10-28)
PROC: 5A09357 Assistance with Respiratory Ventilation, Less than 24 Consecutive Hours, Continuous Positive Airway Pressure (ICD-10-PCS; 2020-10-30)
PROC: 4A023N6 Measurement of Cardiac Sampling and Pressure, Right Heart, Percutaneous Approach (ICD-10-PCS; principal; 2020-10-31)
PROC: 5A09357 Assistance with Respiratory Ventilation, Less than 24 Consecutive Hours, Continuous Positive Airway Pressure (ICD-10-PCS; 2020-10-31)
PROC: 5A09357 Assistance with Respiratory Ventilation, Less than 24 Consecutive Hours, Continuous Positive Airway Pressure (ICD-10-PCS; 2020-11-02)
PROC: 5A09357 Assistance with Respiratory Ventilation, Less than 24 Consecutive Hours, Continuous Positive Airway Pressure (ICD-10-PCS; 2020-11-03)
PROC: 5A09357 Assistance with Respiratory Ventilation, Less than 24 Consecutive Hours, Continuous Positive Airway Pressure (ICD-10-PCS; 2020-11-04)
PROC: 5A09357 Assistance with Respiratory Ventilation, Less than 24 Consecutive Hours, Continuous Positive Airway Pressure (ICD-10-PCS; 2020-11-05)
PROC: 5A09357 Assistance with Respiratory Ventilation, Less than 24 Consecutive Hours, Continuous Positive Airway Pressure (ICD-10-PCS; 2020-11-06)
PROC: 5A09357 Assistance with Respiratory Ventilation, Less than 24 Consecutive Hours, Continuous Positive Airway Pressure (ICD-10-PCS; 2020-11-07)
DX: I13.0 Hypertensive heart and chronic kidney disease with heart failure and stage 1 through stage 4 chronic kidney disease, or unspecified chronic kidney disease (principal); I50.33 Acute on chronic diastolic (congestive) heart failure; J96.01 Acute respiratory failure with hypoxia; N17.9 Acute kidney failure, unspecified; E46 Unspecified protein-calorie malnutrition; Z68.41 Body mass index [BMI] 40.0-44.9, adult; J44.1 Chronic obstructive pulmonary disease with (acute) exacerbation; N18.4 Chronic kidney disease, stage 4 (severe); I43 Cardiomyopathy in diseases classified elsewhere; I42.0 Dilated cardiomyopathy; Z20.822 Contact with and (suspected) exposure to COVID-19; Z04.3 Encounter for examination and observation following other accident; W18.30XA Fall on same level, unspecified, initial encounter; E87.5 Hyperkalemia; R33.8 Other retention of urine; N63.10 Unspecified lump in the right breast, unspecified quadrant; N48.89 Other specified disorders of penis; F14.10 Cocaine abuse, uncomplicated; I27.29 Other secondary pulmonary hypertension; I27.81 Cor pulmonale (chronic); I16.0 Hypertensive urgency; I08.0 Rheumatic disorders of both mitral and aortic valves; D64.9 Anemia, unspecified; E11.22 Type 2 diabetes mellitus with diabetic chronic kidney disease; E11.42 Type 2 diabetes mellitus with diabetic polyneuropathy; E11.65 Type 2 diabetes mellitus with hyperglycemia; E11.51 Type 2 diabetes mellitus with diabetic peripheral angiopathy without gangrene; F17.210 Nicotine dependence, cigarettes, uncomplicated; I25.10 Atherosclerotic heart disease of native coronary artery without angina pectoris; E78.5 Hyperlipidemia, unspecified; E78.00 Pure hypercholesterolemia, unspecified; I70.201 Unspecified atherosclerosis of native arteries of extremities, right leg; K21.9 Gastro-esophageal reflux disease without esophagitis; N40.1 Benign prostatic hyperplasia with lower urinary tract symptoms; I48.91 Unspecified atrial fibrillation; G47.33 Obstructive sleep apnea (adult) (pediatric); Y92.239 Unspecified place in hospital as the place of occurrence of the external cause; E66.01 Morbid (severe) obesity due to excess calories; M19.90 Unspecified osteoarthritis, unspecified site; M25.571 Pain in right ankle and joints of right foot; M54.2 Cervicalgia; Z91.19 Patient's noncompliance with other medical treatment and regimen; Z91.11 Patient's noncompliance with dietary regimen; Z86.73 Personal history of transient ischemic attack (TIA), and cerebral infarction without residual deficits; Z82.49 Family history of ischemic heart disease and other diseases of the circulatory system; Z80.3 Family history of malignant neoplasm of breast; Z79.899 Other long term (current) drug therapy; Y93.89 Activity, other specified; Y99.8 Other external cause status; Z99.81 Dependence on supplemental oxygen; Z90.49 Acquired absence of other specified parts of digestive tract
CPT/HCPCS: 36415; 36430; 36569; 36600; 71045; 72192; 74176; 76937; 80048; 80053; 80061; 80069; 80307; 81001; 82533; 82550; 82607; 82728; 82805; 82962; 83036; 83540; 83550; 83615; 83735; 83880; 84165; 84443; 84484; 84550; 85014; 85018; 85025; 85027; 85610; 86038; 86140; 86850; 86900; 86901; 86920; 87071; 87075; 87076; 87077; 87086; 93005; 93306; 93451; 93971; 94618; 94640; 94660; 94760; 96374; 99152; 99153; 99285; C1773; C1892; J0360; J0696; J1644; J1815; J1940; J2060; J2250; J2270; J2405; J3010; J3490; J7030; P9016; U0003; 97110-GO; 97116-GP; 97530-GO; 97530-GP; 97535-GO; G0378; J7613

== ENCOUNTER 2021-05-31 16:01 | Observation (INO) | payer MEDICAID ==
[~2021-05-31] VITALS: Ht 172.7 cm; Wt 120.0 kg
[~2021-05-31 16:01] MED LIST changes: +ATOR40TA59 PO; +BUME1TAB3 PO; +CARV25TA2 PO; +CLOP75TA PO; +EMPA10TA PO; +ERGO500089 PO; +FURO80TA72 PO; +GABA600T7 PO; +HYDR100T24 PO; +ISOS30TA68 PO; +ISOS40TA10 PO; +LOSA100T14 PO; +METO2.5T PO; +NITR0.4T24 SL; +PANT40TA77 PO; +SENN1TAB99 PO; +SPIR25TA5 PO
[2021-05-31 16:29] LABS: BASO # 0.1 x10^3/uL (0.0-0.2); BASO % 1 % (0-3); EOS # 0.1 x10^3/uL (0.0-0.7); EOS % 2 % (0-3); HEMATOCRIT 27.5 % (39.0-53.0); HEMOGLOBIN 9.2 g/dL (13.0-17.5); LYMPH # 0.8 x10^3/uL (1.0-4.8); LYMPH % 11 % (24-48); MEAN CORPUSCULAR HEMOGLOBIN 29 pg (25-35); MEAN CORPUSCULAR HGB CONC 33 g/dL (31-37); MEAN CORPUSCULAR VOLUME 88 fL (79-100); MONO # 0.5 x10^3/uL (0.0-1.1); MONO % 7 % (0-9); NEUT # 6.4 x10^3/uL (1.8-7.7); NEUT % 80 % (31-73); PLATELET COUNT 252 x10^3/uL (140-400); RED BLOOD COUNT 3.13 x10^6/uL (4.30-5.70); RED CELL DISTRIBUTION WIDTH 13.9 % (11.5-14.5); WHITE BLOOD COUNT 7.9 x10^3/uL (4.0-11.0)
--- NOTE | 2021-05-31 16:31 | RAD ---
Single AP view of the chest. Comparison: 04/05/2021. Indication: Chest pain Findings: The heart is enlarged but stable. There is no pneumothorax or effusion. No air space or interstitial disease. Impression: 1. No acute cardiopulmonary process. Electronically signed by: Eriberto Meehan MD (05/31/2021 4:29 PM) [facility]
--- NOTE | 2021-05-31 16:43 | PHYS DOC ---
Past Medical History Past Medical History: CHF, Diabetes-Type II, High Cholesterol, Hypertension, Pancreatitis, Renal Disease, Vascular Disease Additional Past Medical Histor: CHRONIC KIDNEY DISEASE, neuropathy, prostate, PULMONARY HTN Past Surgical History: Other Additional Past Surgical Histo: HERNIA REPAIR, R leg bypass Smoking Status: Current Some Day Smoker Alcohol Use: Occasionally Drug Use: Cocaine General Adult EDM: Chief Complaint: chest pain HPI: HPI: Patient is a 55 year old male who has a history congestive heart failure, enlarged heart, COPD, hypertension present to ER for evaluation of chest pain intermittently for the last 2 days. Patient also complained of trouble breathing with exertion. He denies any cough or fever, he was vaccinated for COVID-19 4 months ago. Patient admitted drinking alcohol and using cocaine couple days ago. Patient denies any abdominal pain, no nausea vomiting. Patient said he did use some cocaine today and made the chest pain worse. Review of Systems: Review of Systems: Constitutional: Denies fever or chills. [] Eyes: Denies change in visual acuity. [] HENT: Denies nasal congestion or sore throat. [] Respiratory: Denies cough , positive for shortness of air. Cardiovascular: Positive for chest pain, no edema GI: Denies abdominal pain, nausea, vomiting, bloody stools or diarrhea. [] : Denies dysuria. [] Musculoskeletal: Denies back pain or joint pain. [] Integument: Denies rash. [] Neurologic: Denies headache, focal weakness or sensory changes. [] Endocrine: Denies polyuria or polydipsia. [] Lymphatic: Denies swollen glands. [] Psychiatric: Denies depression or anxiety. [] Heart Score: C/O Chest Pain: Yes HEART Score for Chest Pain: HEART Score for Chest Pain Response (Comments) Value History Moderately Suspicious 1 ECG Nonspecific Repolarizatio 1 Age >45 - < 65 1 Risk Factors >3 Risk Factors or Hx CAD 2 Troponin < Normal Limit 0 Total 5 Risk Factors: Risk Factors: DM, Current or recent (<one month) smoker, HTN, HLP, family hist ory of CAD, obesity. Risk Scores: Score 0 - 3: 2.5% MACE over next 6 weeks - Discharge Home Score 4 - 6: 20.3% MACE over next 6 weeks - Admit for Clinical Observation Score 7 - 10: 72.7% MACE over next 6 weeks - Early Invasive Strategies Allergies: Allergies: Allergies Coded Allergies Type Severity Reaction Last Updated Verified Sulfa (Sulfonamide Antibiotics) Allergy Intermediate Rash 05/31/21 Yes Physical Exam: PE: Constitutional: Well developed, well nourished, no acute distress, non-toxic appearance. [] HENT: Normocephalic, atraumatic, bilateral external ears normal, oropharynx moist, no oral exudates, nose normal. [] Eyes: PERRLA, EOMI, conjunctiva normal, no discharge. [] Neck: Normal range of motion, no tenderness, supple, no stridor. [] Cardiovascular:Heart rate regular rhythm, no murmur [] Lungs & Thorax: Bilateral breath sounds clear to auscultation [] Abdomen: Bowel sounds normal, soft, no tenderness, no masses, no pulsatile masses. [] Skin: Warm, dry, no erythema, no rash. [] Back: No tenderness, no CVA tenderness. [] Extremities: No tenderness, no cyanosis, no clubbing, ROM intact, no edema. [] Neurologic: Alert and oriented X 3, normal motor function, normal sensory function, no focal deficits noted. [] Psychologic: Affect normal, judgement normal, mood normal. [] Current Patient Data: Labs: Laboratory Tests Test 05/31/21 16:20 White Blood Count 7.9 x10^3/uL (4.0-11.0) Red Blood Count 3.13 x10^6/uL (4.30-5.70) L Hemoglobin 9.2 g/dL (13.0-17.5) L Hematocrit 27.5 % (39.0-53.0) L Mean Corpuscular Volume 88 fL (79-100) Mean Corpuscular Hemoglobin 29 pg (25-35) Mean Corpuscular Hemoglobin Concent 33 g/dL (31-37) Red Cell Distribution Width 13.9 % (11.5-14.5) Platelet Count 252 x10^3/uL (140-400) Neutrophils (%) (Auto) 80 % (31-73) H Lymphocytes (%) (Auto) 11 % (24-48) L Monocytes (%) (Auto) 7 % (0-9) Eosinophils (%) (Auto) 2 % (0-3) Basophils (%) (Auto) 1 % (0-3) Neutrophils # (Auto) 6.4 x10^3/uL (1.8-7.7) Lymphocytes # (Auto) 0.8 x10^3/uL (1.0-4.8) L Monocytes # (Auto) 0.5 x10^3/uL (0.0-1.1) Eosinophils # (Auto) 0.1 x10^3/uL (0.0-0.7) Basophils # (Auto) 0.1 x10^3/uL (0.0-0.2) Laboratory Tests 05/31/21 16:20 Vital Signs: Vital Signs Date Time Temp Pulse Resp B/P (MAP) Pulse Ox O2 Delivery O2 Flow Rate FiO2 05/31/21 16:23 98.2 82 16 157/63 (94) 97 Room Air 98.2 EKG: EKG: EKG was done at 1609, heart rate 84 bpm, sinus rhythm, no ST segment elevation. Radiology/Procedures: Radiology/Procedures: [][facility] [address] [place], [place] [id number] IMAGING REPORT Signed PATIENT: HAILEY MOREIRA ACCOUNT: [id number] : 1965 LOCATION: ER AGE: 55 SEX: M EXAM STATUS: PRE ER ORD. PHYSICIAN: FRANK CALLEJAS DO REASON: chest pain PROCEDURE: PORTABLE CHEST 1V Single AP view of the chest. Comparison: 04/05/2021. Indication: Chest pain Findings: The heart is enlarged but stable. There is no pneumothorax or effusion. No air space or interstitial disease. Impression: 1. No acute cardiopulmonary process. Electronically signed by: Eriberto Meehan MD (05/31/2021 4:29 PM) [facility] DICTATED and SIGNED BY: ERIBERTO MEEHAN MD DATE: 05/31/21 [id number] 0 Course & Med Decision Making: Course & Med Decision Making Pertinent Labs and Imaging studies reviewed. (See chart for details) Patient is a 55-year-old male who present to ER due to chest pain after drinking alcohol and using cocaine. Patient does have history of congestive heart failure with enlarged heart. EKG and cardiac enzymes came back normal so far. Because of his risk factor patient will be admitted to hospital for further evaluation and treatment. Patient was amenable to plan of care [place] Disclaimer: [place] Disclaimer: This electronic medical record was generated, in whole or in part, using a voice recognition dictation system. Departure Departure Impression: Primary Impression: Chest pain Disposition: ADMITTED INPATIENT Admitting Physician: AMRITA (Dr. Motley) Condition: STABLE Referrals: NIXON MURRAY JR, MD (PCP) FRANK CALLEJAS DO May 31, 2021 16:43
--- NOTE | 2021-05-31 17:22 | EKG ---
[facility] [address] [place] [address] Test Date: 2021-05-31 Test Time: 16:09:01 Pat Name: HAILEY MOREIRA Department: Room: Gender: M Student Teaching Coordinator: : 1965 Requested By: FRANK CALLEJAS Order Number: [id number] Reading MD: Measurements Intervals [place] Rate: 84 P: MI: QRS: 50 QRSD: 78 T: 182 QT: 366 QTc: 436 Interpretive Statements IRREGULAR RHYTHM, NO P-WAVE FOUND LOW LIMB LEAD VOLTAGE T ABNORMALITY IN ANTEROLATERAL LEADS INFEROLATERAL LEADS ABNORMAL ECG RI6.02 No previous ECG available for comparison
[2021-05-31 17:25] LABS: CALCIUM 9.1 mg/dL (8.5-10.1); CREATININE 2.4 mg/dL (0.7-1.3); GFR 34.1
[2021-05-31 17:35] LABS: ALBUMIN 3.7 g/dL (3.4-5.0); ALBUMIN/GLOBULIN RATIO 0.8 (1.0-1.7); MAGNESIUM 1.5 mg/dL (1.8-2.4); TOTAL BILIRUBIN 0.2 mg/dL (0.2-1.0); TOTAL PROTEIN 8.1 g/dL (6.4-8.2)
[2021-05-31] MEDS ORDERED: MAGNESIUM SULFATE 2GM 50 ML IV ONE (18:00)
[2021-05-31] MEDS ORDERED: ONDANSETRON PF 4 MG/2 ML VIAL. IVP PRN ×2 (18:15→18:45)
--- NOTE | 2021-05-31 18:16 | PDOC1 ---
History and Physical Date of Admission Date of Admission DATE: 05/31/21 TIME: 18:07 Identification/Chief Complaint Chief Complaint Chest pain Source Source: Patient History of Present Illness History of Present Illness Patient is a 55-year-old male with past medical history diastolic CHF, CKD, uncontrolled diabetes, HTN, and substance abuse, who presents to the ED with complaints of intermittent chest pain over the past 2 days. Reports associated shortness of breath. Patient is regularly admitted to the hospital after episodes of chest pain secondary to cocaine abuse. States he last used cocaine 2 days ago. I was given conflicting information from ER attending that patient last used cocaine today, which patient adamantly denies. Labs on admission showed WBC 7.9, hemoglobin 9.2, hematocrit 27.5, BUN 43, creatinine 2.4, CBG 108, magnesium 1.5, BNP 2392, troponin 0.027. Chest x-ray showed no acute cardiopulmonary process. He was given Zofran and IV magnesium in ED. At the time of my evaluation he is resting comfortably eating food. Will admit patient for further medical management. Past Medical History Cardiovascular: AFIB, CHF, HTN, Hyperlipidemia, Other Pulmonary: COPD, Pneumonia, Other CENTRAL NERVOUS SYSTEM: CVA, Periperal neuropathy GI: GERD, Other Psych: Addictions Musculoskeletal: Other Renal/: Chronic renal insuff, Benign prostatic enlarg. Endocrine: Diabetes Past Surgical History Past Surgical History: Cholecystectomy, Hernia Repair, Other Family History Family History: Hypertension Social History Smoke: <1 pack per day ALCOHOL: occassional Drugs: Cocaine Current Problem List Problem List Problems Medical Problems: (1) Chest pain Status: Acute Current Medications Current Medications Current Medications Magnesium Sulfate 50 ml @ 25 mls/hr 1X ONCE IV ; Start 05/31/21 at 18:00; Stop 05/31/21 at 19:59 Ondansetron HCl (Zofran) 4 mg PRN Q8HRS PRN IVP NAUSEA/VOMITING; Start 05/31/21 at 18:15; Stop 06/01/21 at 18:14; Status UNV Active Scripts Active Hydrocodone-Apap 5-325 (Hydrocodone Bit/Acetaminophen) 1 Tab Tablet 1 Tab PO PRN Q6HRS PRN Atorvastatin Calcium 40 Mg Tablet 80 Mg PO QHS Amlodipine Besylate 10 Mg Tablet 10 Mg PO DAILY Nitrostat (Nitroglycerin) 0.4 Mg Tab.subl 0.4 Mg SL PRN Q5MIN PRN Isosorbide Mononitrate Er (Isosorbide Mononitrate) 30 Mg Tab.er.24h 60 Mg PO DAILY Metolazone 2.5 Mg Tablet 2.5 Mg PO DAILY 30 Days Bumetanide 1 Mg Tablet 1 Mg PO BID94 30 Days Flomax (Tamsulosin Hcl) 0.4 Mg Cap.er.24h 0.4 Mg PO DAILY Children's Aspirin (Aspirin) 81 Mg Tab.chew 81 Mg PO [id number] Reported Jardiance (Empagliflozin) 10 Mg Tablet 10 Mg PO DAILY Losartan Potassium 100 Mg Tablet 100 Mg PO DAILY Senna-Docusate Sodium Tablet (Sennosides/Docusate Sodium) 1 Each Tablet 2 Tab PO PRN QEVNG PRN 5 Days Vitamin D2 (Ergocalciferol (Vitamin D2)) 1,250 Mcg Capsule 1,250 Mcg PO WEEKLY Clopidogrel (Clopidogrel Bisulfate) 75 Mg Tablet 75 Mg PO DAILY Gabapentin 600 Mg Tablet 300 Mg PO TID Protonix (Pantoprazole Sodium) 40 Mg Tablet.dr 40 Mg PO BID Hydralazine Hcl 100 Mg Tablet 100 Mg PO TID Levemir Flexpen (Insulin Detemir) 100 Unit/1 Ml Insuln.pen 60 Unit SQ HS Novolog Flexpen (Insulin Aspart) 100 Unit/1 Ml Insuln.pen 30 Unit SQ TIDAC Allergies Allergies: Coded Allergies: Sulfa (Sulfonamide Antibiotics) (Verified Allergy, Intermediate, Rash, 05/31/21) ROS Review of System GENERAL: No history of weight change, weakness or fevers. SKIN: No bruising, hair changes or rashes. EYES: No blurred, double or loss of vision. NOSE AND THROAT: No history of nosebleeds, hoarseness or sore throat. HEART: Chest pain. Denies palpitations. LUNGS: Shortness of breath. Denies cough, hemoptysis, or wheezing. GASTROINTESTINAL: Denies nausea, vomiting, abdominal pain. GENITOURINARY: Denies dysuria, frequency, urgency, hematuria. NEUROLOGIC: Denies history of numbness, tingling, tremor or weakness. PSYCHIATRIC: Denies anxiety, denies depression. ENDOCRINE: No history of heat or cold intolerance, polyuria or polydipsia. EXTREMITIES: Denies muscle weakness, joint pain, pain on walking or stiffness. Physical Exam Physical Exam General: Alert, Oriented X3, Cooperative, mild distress HEENT: Atraumatic, EOMI Lungs: Bibasilar rales Heart: RRR, no rubs Cardiovascular: S1, S2 Abdomen: Normal bowel sounds, Soft, No tenderness Extremities: +1 bilateral leg edema Skin: No breakdown, No significant lesion Neuro: Normal speech, Sensation intact Psych/Mental Status: Mental status NL, Mood NL Vitals Vitals Vital Signs Date Time Temp Pulse Resp B/P (MAP) Pulse Ox O2 Delivery O2 Flow Rate FiO2 05/31/21 16:23 98.2 82 16 157/63 (94) 97 Room Air 98.2 Labs Labs Laboratory Tests Test 05/31/21 16:20 05/31/21 17:05 White Blood Count 7.9 x10^3/uL (4.0-11.0) Red Blood Count 3.13 x10^6/uL (4.30-5.70) Hemoglobin 9.2 g/dL (13.0-17.5) Hematocrit 27.5 % (39.0-53.0) Mean Corpuscular Volume 88 fL (79-100) Mean Corpuscular Hemoglobin 29 pg (25-35) Mean Corpuscular Hemoglobin Concent 33 g/dL (31-37) Red Cell Distribution Width 13.9 % (11.5-14.5) Platelet Count 252 x10^3/uL (140-400) Neutrophils (%) (Auto) 80 % (31-73) Lymphocytes (%) (Auto) 11 % (24-48) Monocytes (%) (Auto) 7 % (0-9) Eosinophils (%) (Auto) 2 % (0-3) Basophils (%) (Auto) 1 % (0-3) Neutrophils # (Auto) 6.4 x10^3/uL (1.8-7.7) Lymphocytes # (Auto) 0.8 x10^3/uL (1.0-4.8) Monocytes # (Auto) 0.5 x10^3/uL (0.0-1.1) Eosinophils # (Auto) 0.1 x10^3/uL (0.0-0.7) Basophils # (Auto) 0.1 x10^3/uL (0.0-0.2) Sodium Level 142 mmol/L (136-145) Potassium Level 4.0 mmol/L (3.5-5.1) Chloride Level 105 mmol/L (98-107) Carbon Dioxide Level 25 mmol/L (21-32) Anion Gap 12 (6-14) Blood Urea Nitrogen 43 mg/dL (8-26) Creatinine 2.4 mg/dL (0.7-1.3) Estimated GFR (Cockcroft-Gault) 34.1 BUN/Creatinine Ratio 18 (6-20) Glucose Level 108 mg/dL (70-99) Calcium Level 9.1 mg/dL (8.5-10.1) Magnesium Level 1.5 mg/dL (1.8-2.4) Total Bilirubin 0.2 mg/dL (0.2-1.0) Aspartate Amino Transf (AST/SGOT) 12 U/L (15-37) Alanine Aminotransferase (ALT/SGPT) 11 U/L (16-63) Alkaline Phosphatase 88 U/L (46-116) Troponin I Quantitative 0.027 ng/mL (0.000-0.055) QY-Ixw-S-Type Natriuretic Peptide 2392 pg/mL (0-124) Total Protein 8.1 g/dL (6.4-8.2) Albumin 3.7 g/dL (3.4-5.0) Albumin/Globulin Ratio 0.8 (1.0-1.7) Lipase 238 U/L (73-393) Laboratory Tests Test 05/31/21 16:20 05/31/21 17:05 White Blood Count 7.9 x10^3/uL (4.0-11.0) Red Blood Count 3.13 x10^6/uL (4.30-5.70) Hemoglobin 9.2 g/dL (13.0-17.5) Hematocrit 27.5 % (39.0-53.0) Mean Corpuscular Volume 88 fL (79-100) Mean Corpuscular Hemoglobin 29 pg (25-35) Mean Corpuscular Hemoglobin Concent 33 g/dL (31-37) Red Cell Distribution Width 13.9 % (11.5-14.5) Platelet Count 252 x10^3/uL (140-400) Neutrophils (%) (Auto) 80 % (31-73) Lymphocytes (%) (Auto) 11 % (24-48) Monocytes (%) (Auto) 7 % (0-9) Eosinophils (%) (Auto) 2 % (0-3) Basophils (%) (Auto) 1 % (0-3) Neutrophils # (Auto) 6.4 x10^3/uL (1.8-7.7) Lymphocytes # (Auto) 0.8 x10^3/uL (1.0-4.8) Monocytes # (Auto) 0.5 x10^3/uL (0.0-1.1) Eosinophils # (Auto) 0.1 x10^3/uL (0.0-0.7) Basophils # (Auto) 0.1 x10^3/uL (0.0-0.2) Sodium Level 142 mmol/L (136-145) Potassium Level 4.0 mmol/L (3.5-5.1) Chloride Level 105 mmol/L (98-107) Carbon Dioxide Level 25 mmol/L (21-32) Anion Gap 12 (6-14) Blood Urea Nitrogen 43 mg/dL (8-26) Creatinine 2.4 mg/dL (0.7-1.3) Estimated GFR (Cockcroft-Gault) 34.1 BUN/Creatinine Ratio 18 (6-20) Glucose Level 108 mg/dL (70-99) Calcium Level 9.1 mg/dL (8.5-10.1) Magnesium Level 1.5 mg/dL (1.8-2.4) Total Bilirubin 0.2 mg/dL (0.2-1.0) Aspartate Amino Transf (AST/SGOT) 12 U/L (15-37) Alanine Aminotransferase (ALT/SGPT) 11 U/L (16-63) Alkaline Phosphatase 88 U/L (46-116) Troponin I Quantitative 0.027 ng/mL (0.000-0.055) WZ-Viq-H-Type Natriuretic Peptide 2392 pg/mL (0-124) Total Protein 8.1 g/dL (6.4-8.2) Albumin 3.7 g/dL (3.4-5.0) Albumin/Globulin Ratio 0.8 (1.0-1.7) Lipase 238 U/L (73-393) Images Images PATIENT: HARISHHAILEY ACCOUNT: [id number] : 1965 LOCATION: ER AGE: 55 SEX: M EXAM STATUS: PRE ER ORD. PHYSICIAN: FRANK CALLEJAS DO REASON: chest pain PROCEDURE: PORTABLE CHEST 1V Single AP view of the chest. Comparison: 04/05/2021. Indication: Chest pain Findings: The heart is enlarged but stable. There is no pneumothorax or effusion. No air space or interstitial disease. Impression: 1. No acute cardiopulmonary process. VTE Prophylaxis Ordered VTE Prophylaxis Devices: No VTE Pharmacological Prophylaxi: Yes Assessment/Plan Assessment/Plan Chest pain Elevated troponin Diastolic CHF Cocaine abuse DM2 with hyperglycemia CKD Hypomagnesemia Normocytic anemia HTN Plan: Place consultation to cardiology Continue to trend troponins Echocardiogram from 10/21/2020 showed normal left ventricular systolic function with EF 55% Avoid beta-blockers; Ativan 2 mg every 6 hours as needed chest pain Morphine, nitroglycerin as needed Telemetry Discussed with pharmacy, no phentolamine on formulary in our pharmacy. Renal function is at his baseline of CKD 3b Magnesium replaced in the ED; will continue to monitor. Will place consultation to PAT team for his history of recurrent substance abuse. FEN - Cardiac diet PPX - Lovenox FULL CODE Dispo - inpatient for above Patient names his brother (Manav Moran) as surrogate decision-maker Justifications for Admission Other Justification Acute respiratory failure with hypoxia, acute diastolic CHF exacerbation, right breast mass ASIA GLYNN MD May 31, 2021 18:16
[2021-05-31] MEDS ORDERED: MAG HYDROX/ALUMINUM HYD/SIMETH 30 ML ORAL.SUSP PO PRN (18:45)
[2021-05-31] MEDS ORDERED: ZOLPIDEM 5 MG TABLET. PO PRN (18:45)
[2021-05-31] MEDS ORDERED: SENNOSIDES/DOCUSATE 8.6/50MG TABLET. PO PRN (18:45)
[2021-05-31] MEDS ORDERED: hydrALAZINE 20 MG/ML VIAL. IVP PRN (18:45)
[2021-05-31] MEDS ORDERED: MORPHINE SULFATE 4 MG/ML INJ. IVP PRN (18:45)
[2021-05-31] MEDS ORDERED: NITROGLYCERIN SUBLINGUAL 0.4 MG BOTTLE OF 25. SL PRN (18:45)
[2021-05-31] MEDS ORDERED: ACETAMINOPHEN 325 MG TABLET. PO PRN (18:45)
[2021-05-31] MEDS ORDERED: MAGNESIUM HYDROXIDE 2,400 MG/30 ML ORAL.SUSP. PO PRN (18:45)
[2021-05-31] MEDS ORDERED: DEXTROSE 50% 25 GM / 50ML DISP.SYRIN. IV PRN (18:45)
[2021-05-31] MEDS ORDERED: CALCIUM CARBONATE 500 MG TAB.CHEW PO PRN (18:45)
[2021-05-31] MEDS: PANTOPRAZOLE 40 MG TABLET.DR. PO SCH (18:48)
[2021-05-31] MEDS: HEPARIN for SUB-Q USE 5,000 UNIT/ML VIAL. SQ SCH (19:00)
[2021-05-31] MEDS: HYDROcodone/APAP 5/325MG 1 TAB TABLET PO PRN (19:03)
[2021-05-31] MEDS ORDERED: INSULIN GLARGINE SYRINGE. SQ SCH (21:00)
[2021-05-31] MEDS ORDERED: ATORVASTATIN CALCIUM 40 MG TABLET. PO SCH (21:00)
[2021-05-31] MEDS ORDERED: AMIT25TA PO (22:11)
[2021-05-31] MEDS ORDERED: CHOL10004 PO (22:12)
[2021-05-31] MEDS ORDERED: BUME2TAB3 PO (22:15)
[2021-05-31] MEDS ORDERED: METO2.5T PO (22:21)
[2021-05-31] MEDS: GABAPENTIN 300 MG CAPSULE. PO SCH (22:39)
[2021-05-31 22:56] VITALS: BP 174/81
[2021-06-01 06:23] VITALS: BP 187/78
[2021-06-01] MEDS: HEPARIN for SUB-Q USE 5,000 UNIT/ML VIAL. SQ SCH (06:29)
[2021-06-01 07:00] LABS: BASO % 1 % (0-3); EOS # 0.2 x10^3/uL (0.0-0.7); EOS % 3 % (0-3); HEMATOCRIT 28.6 % (39.0-53.0); HEMOGLOBIN 9.3 g/dL (13.0-17.5); LYMPH # 1.5 x10^3/uL (1.0-4.8); LYMPH % 25 % (24-48); MEAN CORPUSCULAR HEMOGLOBIN 29 pg (25-35); MEAN CORPUSCULAR HGB CONC 32 g/dL (31-37); MEAN CORPUSCULAR VOLUME 90 fL (79-100); MONO # 0.5 x10^3/uL (0.0-1.1); MONO % 8 % (0-9); NEUT # 3.9 x10^3/uL (1.8-7.7); NEUT % 63 % (31-73); PLATELET COUNT 248 x10^3/uL (140-400); RED BLOOD COUNT 3.19 x10^6/uL (4.30-5.70); RED CELL DISTRIBUTION WIDTH 14.1 % (11.5-14.5); WHITE BLOOD COUNT 6.1 x10^3/uL (4.0-11.0)
[2021-06-01 07:25] LABS: CALCIUM 8.6 mg/dL (8.5-10.1); CREATININE 2.4 mg/dL (0.7-1.3); GFR 34.1; POTASSIUM 4.3 mmol/L (3.5-5.1)
[2021-06-01] MEDS: INSULIN LISPRO 300 UNITS/3 ML VIAL. SQ SCH ×4 (08:00→12:13)
[2021-06-01] MEDS ORDERED: ASPIRIN CHEWABLE 81 MG TABLET. PO SCH (08:00)
[2021-06-01] MEDS: PANTOPRAZOLE 40 MG TABLET.DR. PO SCH (08:30)
[2021-06-01] MEDS: GABAPENTIN 300 MG CAPSULE. PO SCH ×2 (08:30→13:28)
--- NOTE | 2021-06-01 08:58 | PDOC ---
PROGRESS NOTES Date of Service: DATE: 06/01/21 TIME: 08:58 Chief Complaint Chief Complaint VTE Prophylaxis Ordered VTE Prophylaxis Devices: No VTE Pharmacological Prophylaxi: Yes Assessment/Plan Assessment/Plan Chest pain Elevated troponin Diastolic CHF Cocaine abuse DM2 with hyperglycemia CKD Hypomagnesemia Normocytic anemia HTN Substance abuse; continued use of cocaine with last use on Saturday CAD; moderate disease of left circumflex system per LHC in 2017 at [facility]. MPI in 2019 without any significant ischemia with preserved LV function Anemia of chronic disease Plan: consultation to cardiology OK TO D/C TODAY Continue to trend troponins Echocardiogram from 10/21/2020 showed normal left ventricular systolic function with EF 55% Avoid beta-blockers; Ativan 2 mg every 6 hours as needed chest pain Morphine, nitroglycerin as needed Telemetry Discussed with pharmacy, no phentolamine on formulary in our pharmacy. Renal function is at his baseline of CKD 3b Magnesium replaced in the ED; will continue to monitor. Will place consultation to PAT team for his history of recurrent substance abuse. FEN - Cardiac diet PPX - Lovenox FULL CODE Dispo - inpatient for above Patient names his brother (Manav Moran) as surrogate decision-maker D/C PLANNING 27 MIN Justifications for Admission Justifications for Admission Other Justification Acute respiratory failure with hypoxia, acute diastolic CHF exacerbation, right breast mass History of Present Illness History of Present Illness Identification/Chief Complaint Chief Complaint Chest pain Source Source: Patient History of Present Illness History of Present Illness Patient is a 55-year-old male with past medical history diastolic CHF, CKD, uncontrolled diabetes, HTN, and substance abuse, who presents to the ED with complaints of intermittent chest pain over the past 2 days. Reports associated shortness of breath. Patient is regularly admitted to the hospital after epis odes of chest pain secondary to cocaine abuse. States he last used cocaine 2 days ago. I was given conflicting information from ER attending that patient last used cocaine today, which patient adamantly denies. Labs on admission showed WBC 7.9, hemoglobin 9.2, hematocrit 27.5, BUN 43, creatinine 2.4, CBG 108, magnesium 1.5, BNP 2392, troponin 0.027. Chest x-ray showed no acute cardiopulmonary process. He was given Zofran and IV magnesium in ED. At the time of my evaluation he is resting comfortably eating food. Will admit patient for further medical management. Past Medical History Cardiovascular: AFIB, CHF, HTN, Hyperlipidemia, Other Pulmonary: COPD, Pneumonia, Other CENTRAL NERVOUS SYSTEM: CVA, Periperal neuropathy GI: GERD, Other Psych: Addictions Musculoskeletal: Other Renal/: Chronic renal insuff, Benign prostatic enlarg. Endocrine: Diabetes Past Surgical History Past Surgical History: Cholecystectomy, Hernia Repair, Other Family History Family History: Hypertension Social History Smoke: <1 pack per day ALCOHOL: occassional Drugs: Cocaine Current Problem List Problem List Problems Medical Problems: (1) Chest pain Status: Acute Current Medications Current Medications Current Medications Magnesium Sulfate 50 ml @ 25 mls/hr 1X ONCE IV ; Start 05/31/21 at 18:00; Stop 05/31/21 at 19:59 Ondansetron HCl (Zofran) 4 mg PRN Q8HRS PRN IVP NAUSEA/VOMITING; Start 05/31/21 at 18:15; Stop 06/01/21 at 18:14; Status UNV Active Scripts Active Hydrocodone-Apap 5-325 (Hydrocodone Bit/Acetaminophen) 1 Tab Tablet 1 Tab PO PRN Q6HRS PRN Atorvastatin Calcium 40 Mg Tablet 80 Mg PO QHS Amlodipine Besylate 10 Mg Tablet 10 Mg PO DAILY Nitrostat (Nitroglycerin) 0.4 Mg Tab.subl 0.4 Mg SL PRN Q5MIN PRN Isosorbide Mononitrate Er (Isosorbide Mononitrate) 30 Mg Tab.er.24h 60 Mg PO DAILY Metolazone 2.5 Mg Tablet 2.5 Mg PO DAILY 30 Days Bumetanide 1 Mg Tablet 1 Mg PO BID94 30 Days Flomax (Tamsulosin Hcl) 0.4 Mg Cap.er.24h 0.4 Mg PO DAILY Children's Aspirin (Aspirin) 81 Mg Tab.chew 81 Mg PO DAILYWBKFT Reported Jardiance (Empagliflozin) 10 Mg Tablet 10 Mg PO DAILY Losartan Potassium 100 Mg Tablet 100 Mg PO DAILY Senna-Docusate Sodium Tablet (Sennosides/Docusate Sodium) 1 Each Tablet 2 Tab PO PRN QEVNG PRN 5 Days Vitamin D2 (Ergocalciferol (Vitamin D2)) 1,250 Mcg Capsule 1,250 Mcg PO WEEKLY Clopidogrel (Clopidogrel Bisulfate) 75 Mg Tablet 75 Mg PO DAILY Gabapentin 600 Mg Tablet 300 Mg PO TID Protonix (Pantoprazole Sodium) 40 Mg Tablet. 40 Mg PO BID Hydralazine Hcl 100 Mg Tablet 100 Mg PO TID Levemir Flexpen (Insulin Detemir) 100 Unit/1 Ml Insuln.pen 60 Unit SQ HS Novolog Flexpen (Insulin Aspart) 100 Unit/1 Ml Insuln.pen 30 Unit SQ TIDAC Allergies Allergies: Coded Allergies: Sulfa (Sulfonamide Antibiotics) (Verified Allergy, Intermediate, Rash, 05/31/21) ROS Review of System GENERAL: No history of weight change, weakness or fevers. SKIN: No bruising, hair changes or rashes. EYES: No blurred, double or loss of vision. NOSE AND THROAT: No history of nosebleeds, hoarseness or sore throat. HEART: Chest pain. Denies palpitations. LUNGS: Shortness of breath. Denies cough, hemoptysis, or wheezing. GASTROINTESTINAL: Denies nausea, vomiting, abdominal pain. GENITOURINARY: Denies dysuria, frequency, urgency, hematuria. NEUROLOGIC: Denies history of numbness, tingling, tremor or weakness. PSYCHIATRIC: Denies anxiety, denies depression. ENDOCRINE: No history of heat or cold intolerance, polyuria or polydipsia. EXTREMITIES: Denies muscle weakness, joint pain, pain on walking or stiffness. Vitals Vitals Vital Signs Date Time Temp Pulse Resp B/P (MAP) Pulse Ox O2 Delivery O2 Flow Rate FiO2 06/01/21 08:32 75 187/78 06/01/21 07:00 95 Room Air 06/01/21 06:23 98.2 18 98.2 Physical Exam Physical Exam General: Alert, Oriented X3, Cooperative, NO distress HEENT: Atraumatic, EOMI Lungs: Bibasilar rales Heart: RRR, no rubs Cardiovascular: S1, S2 Abdomen: Normal bowel sounds, Soft, No tenderness Extremities: +1 bilateral leg edema Skin: No breakdown, No significant lesion Neuro: Normal speech, Sensation intact Psych/Mental Status: Mental status NL, Mood NL General: Alert, Oriented X3, Cooperative, No acute distress Lungs: Clear, Wheezing, Crackles Abdomen: Normal bowel sounds, Soft, No tenderness Extremities: No clubbing, No cyanosis Labs LABS Laboratory Tests Test 05/31/21 16:20 05/31/21 17:05 05/31/21 20:55 06/01/21 02:41 White Blood Count 7.9 x10^3/uL (4.0-11.0) Red Blood Count 3.13 x10^6/uL (4.30-5.70) Hemoglobin 9.2 g/dL (13.0-17.5) Hematocrit 27.5 % (39.0-53.0) Mean Corpuscular Volume 88 fL (79-100) Mean Corpuscular Hemoglobin 29 pg (25-35) Mean Corpuscular Hemoglobin Concent 33 g/dL (31-37) Red Cell Distribution Width 13.9 % (11.5-14.5) Platelet Count 252 x10^3/uL (140-400) Neutrophils (%) (Auto) 80 % (31-73) Lymphocytes (%) (Auto) 11 % (24-48) Monocytes (%) (Auto) 7 % (0-9) Eosinophils (%) (Auto) 2 % (0-3) Basophils (%) (Auto) 1 % (0-3) Neutrophils # (Auto) 6.4 x10^3/uL (1.8-7.7) Lymphocytes # (Auto) 0.8 x10^3/uL (1.0-4.8) Monocytes # (Auto) 0.5 x10^3/uL (0.0-1.1) Eosinophils # (Auto) 0.1 x10^3/uL (0.0-0.7) Basophils # (Auto) 0.1 x10^3/uL (0.0-0.2) Sodium Level 142 mmol/L (136-145) Potassium Level 4.0 mmol/L (3.5-5.1) Chloride Level 105 mmol/L (98-107) Carbon Dioxide Level 25 mmol/L (21-32) Anion Gap 12 (6-14) Blood Urea Nitrogen 43 mg/dL (8-26) Creatinine 2.4 mg/dL (0.7-1.3) Estimated GFR (Cockcroft-Gault) 34.1 BUN/Creatinine Ratio 18 (6-20) Glucose Level 108 mg/dL (70-99) Calcium Level 9.1 mg/dL (8.5-10.1) Magnesium Level 1.5 mg/dL (1.8-2.4) Total Bilirubin 0.2 mg/dL (0.2-1.0) Aspartate Amino Transf (AST/SGOT) 12 U/L (15-37) Alanine Aminotransferase (ALT/SGPT) 11 U/L (16-63) Alkaline Phosphatase 88 U/L (46-116) Troponin I Quantitative 0.027 ng/mL (0.000-0.055) 0.043 ng/mL (0.000-0.055) QH-Aan-V-Type Natriuretic Peptide 2392 pg/mL (0-124) Total Protein 8.1 g/dL (6.4-8.2) Albumin 3.7 g/dL (3.4-5.0) Albumin/Globulin Ratio 0.8 (1.0-1.7) Lipase 238 U/L (73-393) Glucose (Fingerstick) 105 mg/dL (70-99) Test 06/01/21 06:10 06/01/21 08:24 White Blood Count 6.1 x10^3/uL (4.0-11.0) Red Blood Count 3.19 x10^6/uL (4.30-5.70) Hemoglobin 9.3 g/dL (13.0-17.5) Hematocrit 28.6 % (39.0-53.0) Mean Corpuscular Volume 90 fL (79-100) Mean Corpuscular Hemoglobin 29 pg (25-35) Mean Corpuscular Hemoglobin Concent 32 g/dL (31-37) Red Cell Distribution Width 14.1 % (11.5-14.5) Platelet Count 248 x10^3/uL (140-400) Neutrophils (%) (Auto) 63 % (31-73) Lymphocytes (%) (Auto) 25 % (24-48) Monocytes (%) (Auto) 8 % (0-9) Eosinophils (%) (Auto) 3 % (0-3) Basophils (%) (Auto) 1 % (0-3) Neutrophils # (Auto) 3.9 x10^3/uL (1.8-7.7) Lymphocytes # (Auto) 1.5 x10^3/uL (1.0-4.8) Monocytes # (Auto) 0.5 x10^3/uL (0.0-1.1) Eosinophils # (Auto) 0.2 x10^3/uL (0.0-0.7) Basophils # (Auto) 0.0 x10^3/uL (0.0-0.2) Sodium Level 141 mmol/L (136-145) Potassium Level 4.3 mmol/L (3.5-5.1) Chloride Level 103 mmol/L (98-107) Carbon Dioxide Level 25 mmol/L (21-32) Anion Gap 13 (6-14) Blood Urea Nitrogen 48 mg/dL (8-26) Creatinine 2.4 mg/dL (0.7-1.3) Estimated GFR (Cockcroft-Gault) 34.1 Glucose Level 257 mg/dL (70-99) Calcium Level 8.6 mg/dL (8.5-10.1) Magnesium Level 2.0 mg/dL (1.8-2.4) Glucose (Fingerstick) 325 mg/dL (70-99) Assessment and Plan Assessmemt and Plan Problems Medical Problems: (1) Chest pain Status: Acute Comment Review of Relevant I have reviewed the following items karissa (where applicable) has been applied. Labs Laboratory Tests Test 05/31/21 16:20 05/31/21 17:05 05/31/21 20:55 06/01/21 02:41 White Blood Count 7.9 x10^3/uL (4.0-11.0) Red Blood Count 3.13 x10^6/uL (4.30-5.70) Hemoglobin 9.2 g/dL (13.0-17.5) Hematocrit 27.5 % (39.0-53.0) Mean Corpuscular Volume 88 fL (79-100) Mean Corpuscular Hemoglobin 29 pg (25-35) Mean Corpuscular Hemoglobin Concent 33 g/dL (31-37) Red Cell Distribution Width 13.9 % (11.5-14.5) Platelet Count 252 x10^3/uL (140-400) Neutrophils (%) (Auto) 80 % (31-73) Lymphocytes (%) (Auto) 11 % (24-48) Monocytes (%) (Auto) 7 % (0-9) Eosinophils (%) (Auto) 2 % (0-3) Basophils (%) (Auto) 1 % (0-3) Neutrophils # (Auto) 6.4 x10^3/uL (1.8-7.7) Lymphocytes # (Auto) 0.8 x10^3/uL (1.0-4.8) Monocytes # (Auto) 0.5 x10^3/uL (0.0-1.1) Eosinophils # (Auto) 0.1 x10^3/uL (0.0-0.7) Basophils # (Auto) 0.1 x10^3/uL (0.0-0.2) Sodium Level 142 mmol/L (136-145) Potassium Level 4.0 mmol/L (3.5-5.1) Chloride Level 105 mmol/L (98-107) Carbon Dioxide Level 25 mmol/L (21-32) Anion Gap 12 (6-14) Blood Urea Nitrogen 43 mg/dL (8-26) Creatinine 2.4 mg/dL (0.7-1.3) Estimated GFR (Cockcroft-Gault) 34.1 BUN/Creatinine Ratio 18 (6-20) Glucose Level 108 mg/dL (70-99) Calcium Level 9.1 mg/dL (8.5-10.1) Magnesium Level 1.5 mg/dL (1.8-2.4) Total Bilirubin 0.2 mg/dL (0.2-1.0) Aspartate Amino Transf (AST/SGOT) 12 U/L (15-37) Alanine Aminotransferase (ALT/SGPT) 11 U/L (16-63) Alkaline Phosphatase 88 U/L (46-116) Troponin I Quantitative 0.027 ng/mL (0.000-0.055) 0.043 ng/mL (0.000-0.055) YS-Tyu-O-Type Natriuretic Peptide 2392 pg/mL (0-124) Total Protein 8.1 g/dL (6.4-8.2) Albumin 3.7 g/dL (3.4-5.0) Albumin/Globulin Ratio 0.8 (1.0-1.7) Lipase 238 U/L (73-393) Glucose (Fingerstick) 105 mg/dL (70-99) Test 06/01/21 06:10 06/01/21 08:24 White Blood Count 6.1 x10^3/uL (4.0-11.0) Red Blood Count 3.19 x10^6/uL (4.30-5.70) Hemoglobin 9.3 g/dL (13.0-17.5) Hematocrit 28.6 % (39.0-53.0) Mean Corpuscular Volume 90 fL (79-100) Mean Corpuscular Hemoglobin 29 pg (25-35) Mean Corpuscular Hemoglobin Concent 32 g/dL (31-37) Red Cell Distribution Width 14.1 % (11.5-14.5) Platelet Count 248 x10^3/uL (140-400) Neutrophils (%) (Auto) 63 % (31-73) Lymphocytes (%) (Auto) 25 % (24-48) Monocytes (%) (Auto) 8 % (0-9) Eosinophils (%) (Auto) 3 % (0-3) Basophils (%) (Auto) 1 % (0-3) Neutrophils # (Auto) 3.9 x10^3/uL (1.8-7.7) Lymphocytes # (Auto) 1.5 x10^3/uL (1.0-4.8) Monocytes # (Auto) 0.5 x10^3/uL (0.0-1.1) Eosinophils # (Auto) 0.2 x10^3/uL (0.0-0.7) Basophils # (Auto) 0.0 x10^3/uL (0.0-0.2) Sodium Level 141 mmol/L (136-145) Potassium Level 4.3 mmol/L (3.5-5.1) Chloride Level 103 mmol/L (98-107) Carbon Dioxide Level 25 mmol/L (21-32) Anion Gap 13 (6-14) Blood Urea Nitrogen 48 mg/dL (8-26) Creatinine 2.4 mg/dL (0.7-1.3) Estimated GFR (Cockcroft-Gault) 34.1 Glucose Level 257 mg/dL (70-99) Calcium Level 8.6 mg/dL (8.5-10.1) Magnesium Level 2.0 mg/dL (1.8-2.4) Glucose (Fingerstick) 325 mg/dL (70-99) Laboratory Tests Test 05/31/21 16:20 05/31/21 17:05 05/31/21 20:55 06/01/21 02:41 White Blood Count 7.9 x10^3/uL (4.0-11.0) Red Blood Count 3.13 x10^6/uL (4.30-5.70) Hemoglobin 9.2 g/dL (13.0-17.5) Hematocrit 27.5 % (39.0-53.0) Mean Corpuscular Volume 88 fL (79-100) Mean Corpuscular Hemoglobin 29 pg (25-35) Mean Corpuscular Hemoglobin Concent 33 g/dL (31-37) Red Cell Distribution Width 13.9 % (11.5-14.5) Platelet Count 252 x10^3/uL (140-400) Neutrophils (%) (Auto) 80 % (31-73) Lymphocytes (%) (Auto) 11 % (24-48) Monocytes (%) (Auto) 7 % (0-9) Eosinophils (%) (Auto) 2 % (0-3) Basophils (%) (Auto) 1 % (0-3) Neutrophils # (Auto) 6.4 x10^3/uL (1.8-7.7) Lymphocytes # (Auto) 0.8 x10^3/uL (1.0-4.8) Monocytes # (Auto) 0.5 x10^3/uL (0.0-1.1) Eosinophils # (Auto) 0.1 x10^3/uL (0.0-0.7) Basophils # (Auto) 0.1 x10^3/uL (0.0-0.2) Sodium Level 142 mmol/L (136-145) Potassium Level 4.0 mmol/L (3.5-5.1) Chloride Level 105 mmol/L (98-107) Carbon Dioxide Level 25 mmol/L (21-32) Anion Gap 12 (6-14) Blood Urea Nitrogen 43 mg/dL (8-26) Creatinine 2.4 mg/dL (0.7-1.3) Estimated GFR (Cockcroft-Gault) 34.1 BUN/Creatinine Ratio 18 (6-20) Glucose Level 108 mg/dL (70-99) Calcium Level 9.1 mg/dL (8.5-10.1) Magnesium Level 1.5 mg/dL (1.8-2.4) Total Bilirubin 0.2 mg/dL (0.2-1.0) Aspartate Amino Transf (AST/SGOT) 12 U/L (15-37) Alanine Aminotransferase (ALT/SGPT) 11 U/L (16-63) Alkaline Phosphatase 88 U/L (46-116) Troponin I Quantitative 0.027 ng/mL (0.000-0.055) 0.043 ng/mL (0.000-0.055) KR-Nwa-X-Type Natriuretic Peptide 2392 pg/mL (0-124) Total Protein 8.1 g/dL (6.4-8.2) Albumin 3.7 g/dL (3.4-5.0) Albumin/Globulin Ratio 0.8 (1.0-1.7) Lipase 238 U/L (73-393) Glucose (Fingerstick) 105 mg/dL (70-99) Test 06/01/21 06:10 06/01/21 08:24 White Blood Count 6.1 x10^3/uL (4.0-11.0) Red Blood Count 3.19 x10^6/uL (4.30-5.70) Hemoglobin 9.3 g/dL (13.0-17.5) Hematocrit 28.6 % (39.0-53.0) Mean Corpuscular Volume 90 fL (79-100) Mean Corpuscular Hemoglobin 29 pg (25-35) Mean Corpuscular Hemoglobin Concent 32 g/dL (31-37) Red Cell Distribution Width 14.1 % (11.5-14.5) Platelet Count 248 x10^3/uL (140-400) Neutrophils (%) (Auto) 63 % (31-73) Lymphocytes (%) (Auto) 25 % (24-48) Monocytes (%) (Auto) 8 % (0-9) Eosinophils (%) (Auto) 3 % (0-3) Basophils (%) (Auto) 1 % (0-3) Neutrophils # (Auto) 3.9 x10^3/uL (1.8-7.7) Lymphocytes # (Auto) 1.5 x10^3/uL (1.0-4.8) Monocytes # (Auto) 0.5 x10^3/uL (0.0-1.1) Eosinophils # (Auto) 0.2 x10^3/uL (0.0-0.7) Basophils # (Auto) 0.0 x10^3/uL (0.0-0.2) Sodium Level 141 mmol/L (136-145) Potassium Level 4.3 mmol/L (3.5-5.1) Chloride Level 103 mmol/L (98-107) Carbon Dioxide Level 25 mmol/L (21-32) Anion Gap 13 (6-14) Blood Urea Nitrogen 48 mg/dL (8-26) Creatinine 2.4 mg/dL (0.7-1.3) Estimated GFR (Cockcroft-Gault) 34.1 Glucose Level 257 mg/dL (70-99) Calcium Level 8.6 mg/dL (8.5-10.1) Magnesium Level 2.0 mg/dL (1.8-2.4) Glucose (Fingerstick) 325 mg/dL (70-99) Medications Current Medications Magnesium Sulfate 50 ml @ 25 mls/hr 1X ONCE IV Last administered on 05/31/21at 18:00; Start 05/31/21 at 18:00; Stop 05/31/21 at 19:59; Status DC Ondansetron HCl (Zofran) 4 mg PRN Q8HRS PRN IVP NAUSEA/VOMITING; Start 05/31/21 at 18:15; Stop 06/01/21 at 07:46; Status DC Amlodipine Besylate (Norvasc) 10 mg DAILY PO Last administered on 06/01/21at 08:32; Start 06/01/21 at 09:00 Aspirin (Aspirin Chewable) 81 mg DAILYWBKFT PO Last administered on 06/01/21at 08:30; Start 06/01/21 at 08:00 Atorvastatin Calcium (Lipitor) 80 mg QHS PO Last administered on 05/31/21at 22:39; Start 05/31/21 at 21:00 Bumetanide (Bumex) 1 mg BID94 PO Last administered on 06/01/21at 08:31; Start 06/01/21 at 09:00 Clopidogrel Bisulfate (Plavix) 75 mg DAILY PO Last administered on 06/01/21at 08:31; Start 06/01/21 at 09:00 Acetaminophen/ Hydrocodone Bitart (Lortab 5/325) 1 tab PRN Q6HRS PRN PO MODERATE TO SEVERE PAIN Last administered on 05/31/21at 19:03; Start 05/31/21 at 18:45 Isosorbide Mononitrate (Imdur) 60 mg DAILY PO Last administered on 06/01/21at 08:31; Start 06/01/21 at 09:00 Metolazone (Zaroxolyn) 2.5 mg DAILY PO Last administered on 06/01/21at 08:31; Start 06/01/21 at 09:00 Nitroglycerin (Nitrostat) 0.4 mg PRN Q5MIN PRN SL CHEST PAIN; Start 05/31/21 at 18:45 Pantoprazole Sodium (Protonix) 40 mg BIDAC PO Last administered on 06/01/21at 08:30; Start 05/31/21 at 19:00 Senna/Docusate Sodium (Senna Plus) 2 tab PRN QEVNG PRN PO CONSTIPATION; Start 05/31/21 at 18:45 Tamsulosin HCl (Flomax) 0.4 mg DAILY PO Last administered on 06/01/21at 08:31; Start 06/01/21 at 09:00 Non-Formulary Medication (Empagliflozin (Jardiance)) 10 mg DAILY PO ; Start 06/01/21 at 09:00; Status UNV Gabapentin (Neurontin) 300 mg TID PO Last administered on 06/01/21at 08:30; Start 05/31/21 at 21:00 Hydralazine HCl (Apresoline) 100 mg TID PO Last administered on 06/01/21at 08:32; Start 05/31/21 at 21:00 Insulin Human Lispro (HumaLOG) 30 units TIDWMEALS SQ Last administered on 06/01/21at 08:41; Start 06/01/21 at 08:00 Losartan Potassium (Cozaar) 100 mg DAILY PO Last administered on 06/01/21at 08:31; Start 06/01/21 at 09:00 Lorazepam (Ativan Inj) 2 mg PRN Q6HRS PRN IVP ANXIETY / AGITATION; Start 05/31/21 at 18:45 Morphine Sulfate (Morphine Sulfate) 4 mg PRN Q15MIN PRN IVP CHEST PAIN Last administered on 06/01/21at 06:30; Start 05/31/21 at 18:45 Insulin Glargine (Lantus Syringe) 60 unit QHS SQ ; Start 05/31/21 at 21:00 Insulin Human Lispro (HumaLOG) 0-9 UNITS TIDWMEALS SQ ; Start 06/01/21 at 08:00 Dextrose (Dextrose 50%-Water Syringe) 12.5 gm PRN Q15MIN PRN IV SEE COMMENTS; Start 05/31/21 at 18:45 Hydralazine HCl (Apresoline Inj) 10 mg PRN Q4HRS PRN IVP HYPERTENSION; Start 05/31/21 at 18:45 Ondansetron HCl (Zofran) 4 mg PRN Q6HRS PRN IVP NAUSEA/VOMITING; Start 05/31/21 at 18:45 Al Hydroxide/Mg Hydroxide (Mylanta Plus Xs) 30 ml PRN Q3HRS PRN PO HEARTBURN / GAS; Start 05/31/21 at 18:45 Calcium Carbonate/ Glycine (Tums) 500 mg PRN Q3HRS PRN PO UPSET STOMACH; Start 05/31/21 at 18:45 Zolpidem Tartrate (Ambien) 5 mg PRN QHS PRN PO INSOMNIA, MAY REPEAT IN 1HR Last administered on 05/31/21at 22:54; Start 05/31/21 at 18:45 Acetaminophen (Tylenol) 650 mg PRN Q6HRS PRN PO Headaches, Temp > 101.5F; Start 05/31/21 at 18:45 Magnesium Hydroxide (Milk Of Magnesia) 2,400 mg PRN Q12HR PRN PO CONSTIPATION; Start 05/31/21 at 18:45 Heparin Sodium (Porcine) (Heparin Sodium) 5,000 unit Q8HRS SQ Last administered on 06/01/21at 06:29; Start 05/31/21 at 19:00 Active Scripts Active Hydrocodone-Apap 5-325 (Hydrocodone Bit/Acetaminophen) 1 Tab Tablet 1 Tab PO PRN Q6HRS PRN Atorvastatin Calcium 40 Mg Tablet 80 Mg PO QHS Amlodipine Besylate 10 Mg Tablet 10 Mg PO DAILY Nitrostat (Nitroglycerin) 0.4 Mg Tab.subl 0.4 Mg SL PRN Q5MIN PRN Isosorbide Mononitrate Er (Isosorbide Mononitrate) 30 Mg Tab.er.24h 60 Mg PO DAILY Metolazone 2.5 Mg Tablet 2.5 Mg PO DAILY 30 Days Bumetanide 1 Mg Tablet 1 Mg PO BID94 30 Days Flomax (Tamsulosin Hcl) 0.4 Mg Cap.er.24h 0.4 Mg PO DAILY Children's Aspirin (Aspirin) 81 Mg Tab.chew 81 Mg PO DAILYWBKFT Reported Metolazone 2.5 Mg Tablet 2.5 Mg PO BID Bumetanide 2 Mg Tablet 2 Mg PO DAILY Vitamin D3 (Vitamin D) 25 Mcg Tablet 25 Mcg PO DAILY 1,000 UNITS = 25 MCG Amitriptyline Hcl 25 Mg Tablet 25 Mg PO HS Jardiance (Empagliflozin) 10 Mg Tablet 10 Mg PO DAILY Losartan Potassium 100 Mg Tablet 100 Mg PO DAILY Senna-Docusate Sodium Tablet (Sennosides/Docusate Sodium) 1 Each Tablet 2 Tab PO PRN QEVNG PRN 5 Days Clopidogrel (Clopidogrel Bisulfate) 75 Mg Tablet 75 Mg PO DAILY Gabapentin 600 Mg Tablet 300 Mg PO TID Protonix (Pantoprazole Sodium) 40 Mg Tablet.dr 40 Mg PO BID Hydralazine Hcl 100 Mg Tablet 100 Mg PO TID Levemir Flexpen (Insulin Detemir) 100 Unit/1 Ml Insuln.pen 60 Unit SQ HS Novolog Flexpen (Insulin Aspart) 100 Unit/1 Ml Insuln.pen 30 Unit SQ TIDAC Vitals/I & O Vital Sign - Last 24 Hours 05/31/21 05/31/21 05/31/21 05/31/21 16:23 18:32 19:03 21:30 Temp 98.2 98.2 Pulse 82 95 Resp 16 18 B/P (MAP) 157/63 (94) 169/81 (110) Pulse Ox 97 96 O2 Delivery Room Air Room Air Room Air Room Air 05/31/21 05/31/21 06/01/21 06/01/21 22:40 22:56 06:23 06:30 Temp 98.1 98.2 98.1 98.2 Pulse 95 93 75 Resp 22 18 B/P (MAP) 169/81 174/81 (112) 187/78 (114) Pulse Ox 100 95 95 O2 Delivery Room Air Room Air Room Air 06/01/21 06/01/21 06/01/21 06/01/21 07:00 08:31 08:31 08:32 Pulse 75 75 75 B/P (MAP) 187/78 187/78 187/78 Pulse Ox 95 O2 Delivery Room Air 06/01/21 08:32 Pulse 75 B/P (MAP) 187/78 Intake and Output 05/31/21 05/31/21 06/01/21 15:00 23:00 07:00 Intake Total 300 ml Balance 300 ml Justicifation of Admission Dx: Justifications for Admission: Justification of Admission Dx: N/A CHANELL ALBERTS MD Jun 01, 2021 08:58
[2021-06-01] MEDS ORDERED: NON FORMULARY ITEM (Empagliflozin (Jardiance) 10 MG) PO SCH (09:00)
[2021-06-01] MEDS ORDERED: TAMSULOSIN 0.4 MG CAP.ER.24H. PO SCH (09:00)
[2021-06-01] MEDS ORDERED: BUMETANIDE 1 MG TABLET. PO SCH (09:00)
[2021-06-01] MEDS ORDERED: LOSARTAN POTASSIUM 50 MG TABLET. PO SCH (09:00)
[2021-06-01] MEDS ORDERED: CLOPIDOGREL BISULFATE 75 MG TABLET PO SCH (09:00)
[2021-06-01] MEDS ORDERED: metOLazone 2.5 MG TABLET PO SCH (09:00)
[2021-06-01] MEDS ORDERED: ISOSORBIDE MONONITRATE ER 30 MG TAB.ER.24H PO SCH (09:00)
--- NOTE | 2021-06-01 09:50 | PDOC2 ---
HAILEE ARSHAD PRODUCTION SKI REPAIRER 06/01/21 0950: CARDIAC CONSULT DATE OF CONSULT Date of Consult DATE: 06/01/21 TIME: 09:36 REASON FOR CONSULT Reason for Consult: Chest pain REFERRING PHYSICIAN Referring Physician: Jevon SOURCE Source: Chart review, Patient HISTORY OF PRESENT ILLNESS HISTORY OF PRESENT ILLNESS This is a 55 yo male admitted for complains of chest pain. Mainly right side like poking pain. No SOA, nausea or vomiting. No recent falls, or injury. No intractable coughing. He has used cocaine and last use was 2 days. He drinks ETOH and smokes tobacco. He has several medications listed including ASA and zarina vix and kept on denying heart disease but does have hx of PAD PAST MEDICAL HISTORY Past Medical History Cardiovascular: CHF, HTN, Hyperlipidemia, Other (PAD) Pulmonary: COPD, Pneumonia, Other (ROXANNE) CENTRAL NERVOUS SYSTEM: CVA, Peripheral neuropathy GI: GERD Musculoskeletal: Osteoarthritis Renal/: Chronic renal insuff, Benign prostatic enlarg. Endocrine: Diabetes PAST SURGICAL HISTORY Past Surgical History Cholecystectomy, Hernia Repair, RHC FAMILY HISTORY Family History: Hypertension SOCIAL HISTORY Smoke: <1 pack per day ALCOHOL: occassional Drugs: Cocaine Lives: with Family CURRENT MEDICATIONS CURRENT MEDICATIONS Current Medications Medications (Trade) Dose Ordered Sig/Kiera Route PRN Reason Start Time Stop Time Status Last Admin Dose Admin Magnesium Sulfate 50 ml @ 25 mls/hr 1X ONCE IV 05/31/21 18:00 05/31/21 19:59 DC 05/31/21 18:00 Amlodipine Besylate (Norvasc) 10 mg DAILY PO 06/01/21 09:00 06/01/21 08:32 Aspirin (Aspirin Chewable) 81 mg [id number] PO 06/01/21 08:00 06/01/21 08:30 Atorvastatin Calcium (Lipitor) 80 mg QHS PO 05/31/21 21:00 05/31/21 22:39 Bumetanide (Bumex) 1 mg BID94 PO 06/01/21 09:00 06/01/21 08:31 Clopidogrel Bisulfate (Plavix) 75 mg DAILY PO 06/01/21 09:00 06/01/21 08:31 Acetaminophen/ Hydrocodone Bitart (Lortab 5/325) 1 tab PRN Q6HRS PRN PO MODERATE TO SEVERE PAIN 05/31/21 18:45 05/31/21 19:03 Isosorbide Mononitrate (Imdur) 60 mg DAILY PO 06/01/21 09:00 06/01/21 08:31 Metolazone (Zaroxolyn) 2.5 mg DAILY PO 06/01/21 09:00 06/01/21 08:31 Pantoprazole Sodium (Protonix) 40 mg BIDAC PO 05/31/21 19:00 06/01/21 08:30 Tamsulosin HCl (Flomax) 0.4 mg DAILY PO 06/01/21 09:00 06/01/21 08:31 Gabapentin (Neurontin) 300 mg TID PO 05/31/21 21:00 06/01/21 08:30 Hydralazine HCl (Apresoline) 100 mg TID PO 05/31/21 21:00 06/01/21 08:32 Insulin Human Lispro (HumaLOG) 30 units TIDWMEALS SQ 06/01/21 08:00 06/01/21 08:41 Losartan Potassium (Cozaar) 100 mg DAILY PO 06/01/21 09:00 06/01/21 08:31 Morphine Sulfate (Morphine Sulfate) 4 mg PRN Q15MIN PRN IVP CHEST PAIN 05/31/21 18:45 06/01/21 06:30 Zolpidem Tartrate (Ambien) 5 mg PRN QHS PRN PO INSOMNIA, MAY REPEAT IN 1HR 05/31/21 18:45 05/31/21 22:54 Heparin Sodium (Porcine) (Heparin Sodium) 5,000 unit Q8HRS SQ 05/31/21 19:00 06/01/21 06:29 ALLERGIES ALLERGIES: Coded Allergies: Sulfa (Sulfonamide Antibiotics) (Verified Allergy, Intermediate, Rash, 05/31/21) ROS Review of System 14 point ROS evaluated with pertinent positives noted per HPI PHYSICAL EXAM General: Alert, Oriented X3, Cooperative, No acute distress HEENT: Atraumatic, Mucous membr. moist/pink Lungs: Clear to auscultation, Normal air movement Heart: Regular rate (SR), Normal S1, Normal S2, No murmurs Abdomen: Soft, No tenderness Extremities: No cyanosis, No edema Skin: No breakdown, No significant lesion Neuro: Normal speech, Sensation intact Psych/Mental Status: Mental status NL, Mood NL MUSCULOSKELETAL: Osteoarthritic changes both hands VITALS/I&O VITALS/I&O: Vital Signs Date Time Temp Pulse Resp B/P (MAP) Pulse Ox O2 Delivery O2 Flow Rate FiO2 06/01/21 08:32 75 187/78 06/01/21 07:00 95 Room Air 06/01/21 06:23 98.2 18 98.2 I & O 05/31/21 05/31/21 06/01/21 15:00 23:00 07:00 Intake Total 300 ml Balance 300 ml LABS Lab: Laboratory Tests Test 05/31/21 16:20 05/31/21 17:05 05/31/21 20:55 06/01/21 02:41 White Blood Count 7.9 x10^3/uL (4.0-11.0) Red Blood Count 3.13 x10^6/uL (4.30-5.70) L Hemoglobin 9.2 g/dL (13.0-17.5) L Hematocrit 27.5 % (39.0-53.0) L Mean Corpuscular Volume 88 fL (79-100) Mean Corpuscular Hemoglobin 29 pg (25-35) Mean Corpuscular Hemoglobin Concent 33 g/dL (31-37) Red Cell Distribution Width 13.9 % (11.5-14.5) Platelet Count 252 x10^3/uL (140-400) Neutrophils (%) (Auto) 80 % (31-73) H Lymphocytes (%) (Auto) 11 % (24-48) L Monocytes (%) (Auto) 7 % (0-9) Eosinophils (%) (Auto) 2 % (0-3) Basophils (%) (Auto) 1 % (0-3) Neutrophils # (Auto) 6.4 x10^3/uL (1.8-7.7) Lymphocytes # (Auto) 0.8 x10^3/uL (1.0-4.8) L Monocytes # (Auto) 0.5 x10^3/uL (0.0-1.1) Eosinophils # (Auto) 0.1 x10^3/uL (0.0-0.7) Basophils # (Auto) 0.1 x10^3/uL (0.0-0.2) Sodium Level 142 mmol/L (136-145) Potassium Level 4.0 mmol/L (3.5-5.1) Chloride Level 105 mmol/L (98-107) Carbon Dioxide Level 25 mmol/L (21-32) Anion Gap 12 (6-14) Blood Urea Nitrogen 43 mg/dL (8-26) H Creatinine 2.4 mg/dL (0.7-1.3) H Estimated GFR (Cockcroft-Gault) 34.1 BUN/Creatinine Ratio 18 (6-20) Glucose Level 108 mg/dL (70-99) H Calcium Level 9.1 mg/dL (8.5-10.1) Magnesium Level 1.5 mg/dL (1.8-2.4) L Total Bilirubin 0.2 mg/dL (0.2-1.0) Aspartate Amino Transferase (AST) 12 U/L (15-37) L Alanine Aminotransferase (ALT) 11 U/L (16-63) L Alkaline Phosphatase 88 U/L (46-116) Troponin I Quantitative 0.027 ng/mL (0.000-0.055) 0.043 ng/mL (0.000-0.055) ZN-Tbn-H-Type Natriuretic Peptide 2392 pg/mL (0-124) H Total Protein 8.1 g/dL (6.4-8.2) Albumin 3.7 g/dL (3.4-5.0) Albumin/Globulin Ratio 0.8 (1.0-1.7) L Lipase 238 U/L (73-393) Glucose (Fingerstick) 105 mg/dL (70-99) H Test 06/01/21 06:10 06/01/21 08:24 White Blood Count 6.1 x10^3/uL (4.0-11.0) Red Blood Count 3.19 x10^6/uL (4.30-5.70) L Hemoglobin 9.3 g/dL (13.0-17.5) L Hematocrit 28.6 % (39.0-53.0) L Mean Corpuscular Volume 90 fL (79-100) Mean Corpuscular Hemoglobin 29 pg (25-35) Mean Corpuscular Hemoglobin Concent 32 g/dL (31-37) Red Cell Distribution Width 14.1 % (11.5-14.5) Platelet Count 248 x10^3/uL (140-400) Neutrophils (%) (Auto) 63 % (31-73) Lymphocytes (%) (Auto) 25 % (24-48) Monocytes (%) (Auto) 8 % (0-9) Eosinophils (%) (Auto) 3 % (0-3) Basophils (%) (Auto) 1 % (0-3) Neutrophils # (Auto) 3.9 x10^3/uL (1.8-7.7) Lymphocytes # (Auto) 1.5 x10^3/uL (1.0-4.8) Monocytes # (Auto) 0.5 x10^3/uL (0.0-1.1) Eosinophils # (Auto) 0.2 x10^3/uL (0.0-0.7) Basophils # (Auto) 0.0 x10^3/uL (0.0-0.2) Sodium Level 141 mmol/L (136-145) Potassium Level 4.3 mmol/L (3.5-5.1) Chloride Level 103 mmol/L (98-107) Carbon Dioxide Level 25 mmol/L (21-32) Anion Gap 13 (6-14) Blood Urea Nitrogen 48 mg/dL (8-26) H Creatinine 2.4 mg/dL (0.7-1.3) H Estimated GFR (Cockcroft-Gault) 34.1 Glucose Level 257 mg/dL (70-99) H Calcium Level 8.6 mg/dL (8.5-10.1) Magnesium Level 2.0 mg/dL (1.8-2.4) Glucose (Fingerstick) 325 mg/dL (70-99) H Laboratory Tests 05/31/21 16:20 06/01/21 06:10 Laboratory Tests 05/31/21 17:05 06/01/21 06:10 ASSESSMENT/PLAN ASSESSMENT/PLAN 1. Atypical chest pain: trops nml, possibly MSK 2. Chronic diastolic CHF: compensated 3. CKD3: at his baseline 4. COPD with continued tobaccoism 5. ROXANNE: uses CPAP at home 6. Hypertension: labile with noncompliance 7. PAD: prior right femoropopliteal bypass in 2016, clinically stable. Follows with vascular Dr gallegos 8. Dyslipidemia 9. Diabetes 2: uncontrolled, per PCP 10. Substance abuse; admits continued use of cocaine with last use on Hardik 11. CAD; moderate disease of left circumflex system per LHC in 2017 at . MPI in 2019 without any significant ischemia with preserved LV function 12. Anemia of chronic disease Recommendations 1. Continue secondary prevention measures, Restart home BP regimen. Not on BB due to cocaine use hx of bradycardia 2. Reinforced compliance with meds and smoking, recreational cocaine/tobacco cessation 3. Follow up with [facility] cardiology and consider outpt MPI if he is sober from cocaine SALVADOR ANDERSON MD 06/01/21 1723: CARDIAC CONSULT ASSESSMENT/PLAN ASSESSMENT/PLAN Patient seen and examined I agree with our nurse practitioners assessment and plan. Atypical chest pain: trops nml, possibly MSK. Chronic diastolic CHF: compensated CKD3: at baseline COPD with continued tobaccoism ROXANNE: uses CPAP at home Hypertension: labile with noncompliance. Improved with restart of medications. PAD: prior right femoropopliteal bypass in 2015, clinically stable. Follows with vascular Dr Gallegos Dyslipidemia Diabetes 2: uncontrolled, per PCP Substance abuse; admits continued use of cocaine with last use on Saturday CAD; moderate disease of left circumflex system per LHC in 2017 at . MPI in 2019 without any significant ischemia with preserved LV function. Continue on medications with no beta-blockers. Follow-up with primary people greeter. HAILEE ARSHAD APRN Jun 01, 2021 09:50 SALVADOR ANDERSON MD Jun 01, 2021 17:23
[2021-06-01 10:23] VITALS: BP 125/35
--- NOTE | 2021-06-01 10:33 | NUR ---
SS following for discharge planning. SS reviewed pt chart and discussed with pt RN. Pt is from home and is currently on room air. Cardiology consulted. Pt admitted to recent Cocaine and Alcohol use. PAT team referral made for assessment and recommendations. Discharge plan is currently to home when medically ready for discharge. SS will continue to follow for discharge planning.
--- NOTE | 2021-06-01 12:23 | PDOC3 ---
Discharge Summary Date of Admission: May 31, 2021 Date of Discharge: Jun 01, 2021 Follow-Up: 3-5 days Admitting Diagnosis comment: History of Present Illness History of Present Illness Patient is a 55-year-old male with past medical history diastolic CHF, CKD, un controlled diabetes, HTN, and substance abuse, who presents to the ED with complaints of intermittent chest pain over the past 2 days. Reports associated shortness of breath. Patient is regularly admitted to the hospital after episodes of chest pain secondary to cocaine abuse. States he last used cocaine 2 days ago. I was given conflicting information from ER attending that patient last used cocaine today, which patient adamantly denies. Labs on admission showed WBC 7.9, hemoglobin 9.2, hematocrit 27.5, BUN 43, creatinine 2.4, CBG 108, magnesium 1.5, BNP 2392, troponin 0.027. Chest x-ray showed no acute cardiopulmonary process. He was given Zofran and IV magnesium in ED. At the time of my evaluation he is resting comfortably eating food. Will admit patient for further medical management CONSULTS CARDIOLOGY D/C MEDS SEE MAR PATIENT: HIALEY MOREIRA ACCOUNT: [id number] : 1965 LOCATION: ER AGE: 55 SEX: M EXAM STATUS: PRE ER ORD. PHYSICIAN: FRANK CALLEJAS DO REASON: chest pain PROCEDURE: PORTABLE CHEST 1V Single AP view of the chest. Comparison: 04/05/2021. Indication: Chest pain Findings: The heart is enlarged but stable. There is no pneumothorax or effusion. No air space or interstitial disease. Impression: 1. No acute cardiopulmonary process. Electronically signed by: Eriberto Meehan MD (05/31/2021 4:29 PM) [facility] DICTATED and SIGNED BY: ERIBERTO MEEHAN MD DATE: 05/31/21 [id number] DISCHARGE DX Assessment/Plan Chest pain Elevated troponin Diastolic CHF Cocaine abuse DM2 with hyperglycemia CKD Hypomagnesemia Normocytic anemia HTN Substance abuse; continued use of cocaine with last use on Saturday CAD; moderate disease of left circumflex system per LHC in 2017 at . MPI in without any significant ischemia with preserved LV function Anemia of chronic disease Plan: consultation to cardiology OK TO D/C TODAY 9-16 Continue to trend troponins Echocardiogram from 10/21/2020 showed normal left ventricular systolic function w ith EF 55% Avoid beta-blockers; Ativan 2 mg every 6 hours as needed chest pain Morphine, nitroglycerin as needed Telemetry Discussed with pharmacy, no phentolamine on formulary in our pharmacy. Renal function is at his baseline of CKD 3b Magnesium replaced in the ED; will continue to monitor. Will place consultation to PAT team for his history of recurrent substance abuse. FEN - Cardiac diet PPX - Lovenox FULL CODE Dispo - inpatient for above Patient names his brother (Manav Moreira) as surrogate decision-maker D/C PLANNING 27 MIN Justifications for Admission Justifications for Admission Other Justification Acute respiratory failure with hypoxia, acute diastolic CHF exacerbation, right breast mass History of Present Illness History of Present Illness Identification/Chief Complaint Chief Complaint Chest pain Source Source: Patient History of Present Illness History of Present Illness Patient is a 55-year-old male with past medical history diastolic CHF, CKD, uncontrolled diabetes, HTN, and substance abuse, who presents to the ED with complaints of intermittent chest pain over the past 2 days. Reports associated shortness of breath. Patient is regularly admitted to the hospital after episodes of chest pain secondary to cocaine abuse. States he last used cocaine 2 days ago. I was given conflicting information from ER attending that patient last used cocaine today, which patient adamantly denies. Labs on admission showed WBC 7.9, hemoglobin 9.2, hematocrit 27.5, BUN 43, creatinine 2.4, CBG 108, magnesium 1.5, BNP 2392, troponin 0.027. Chest x-ray showed no acute cardiopulmonary process. He was given Zofran and IV magnesium in ED. At the time of my evaluation he is resting comfortably eating food. Will admit patient for further medical management. Past Medical History Cardiovascular: AFIB, CHF, HTN, Hyperlipidemia, Other Pulmonary: COPD, Pneumonia, Other CENTRAL NERVOUS SYSTEM: CVA, Periperal neuropathy GI: GERD, Other Psych: Addictions Musculoskeletal: Other Renal/: Chronic renal insuff, Benign prostatic enlarg. Endocrine: Diabetes Past Surgical History Past Surgical History: Cholecystectomy, Hernia Repair, Other Family History Family History: Hypertension Social History Smoke: <1 pack per day ALCOHOL: occassional Drugs: Cocaine Current Problem List Problem List Problems Medical Problems: (1) Chest pain Status: Acute Current Medications Current Medications Current Medications Magnesium Sulfate 50 ml @ 25 mls/hr 1X ONCE IV ; Start 05/31/21 at 18:00; Stop 05/31/21 at 19:59 Ondansetron HCl (Zofran) 4 mg PRN Q8HRS PRN IVP NAUSEA/VOMITING; Start 05/31/21 at 18:15; Stop 06/01/21 at 18:14; Status UNV Active Scripts Active Hydrocodone-Apap 5-325 (Hydrocodone Bit/Acetaminophen) 1 Tab Tablet 1 Tab PO PRN Q6HRS PRN Atorvastatin Calcium 40 Mg Tablet 80 Mg PO QHS Amlodipine Besylate 10 Mg Tablet 10 Mg PO DAILY Nitrostat (Nitroglycerin) 0.4 Mg Tab.subl 0.4 Mg SL PRN Q5MIN PRN Isosorbide Mononitrate Er (Isosorbide Mononitrate) 30 Mg Tab.er.24h 60 Mg PO DAILY Metolazone 2.5 Mg Tablet 2.5 Mg PO DAILY 30 Days Bumetanide 1 Mg Tablet 1 Mg PO BID94 30 Days Flomax (Tamsulosin Hcl) 0.4 Mg Cap.er.24h 0.4 Mg PO DAILY Children's Aspirin (Aspirin) 81 Mg Tab.chew 81 Mg PO DAILYWBKFT Reported Jardiance (Empagliflozin) 10 Mg Tablet 10 Mg PO DAILY Losartan Potassium 100 Mg Tablet 100 Mg PO DAILY Senna-Docusate Sodium Tablet (Sennosides/Docusate Sodium) 1 Each Tablet 2 Tab PO PRN QEVNG PRN 5 Days Vitamin D2 (Ergocalciferol (Vitamin D2)) 1,250 Mcg Capsule 1,250 Mcg PO WEEKLY Clopidogrel (Clopidogrel Bisulfate) 75 Mg Tablet 75 Mg PO DAILY Gabapentin 600 Mg Tablet 300 Mg PO TID Protonix (Pantoprazole Sodium) 40 Mg Tablet.dr 40 Mg PO BID Hydralazine Hcl 100 Mg Tablet 100 Mg PO TID Levemir Flexpen (Insulin Detemir) 100 Unit/1 Ml Insuln.pen 60 Unit SQ HS Novolog Flexpen (Insulin Aspart) 100 Unit/1 Ml Insuln.pen 30 Unit SQ TIDAC Allergies Allergies: Coded Allergies: Sulfa (Sulfonamide Antibiotics) (Verified Allergy, Intermediate, Rash, 05/31/21) ROS Review of System GENERAL: No history of weight change, weakness or fevers. SKIN: No bruising, hair changes or rashes. EYES: No blurred, double or loss of vision. NOSE AND THROAT: No history of nosebleeds, hoarseness or sore throat. HEART: Chest pain. Denies palpitations. LUNGS: Shortness of breath. Denies cough, hemoptysis, or wheezing. GASTROINTESTINAL: Denies nausea, vomiting, abdominal pain. GENITOURINARY: Denies dysuria, frequency, urgency, hematuria. NEUROLOGIC: Denies history of numbness, tingling, tremor or weakness. PSYCHIATRIC: Denies anxiety, denies depression. ENDOCRINE: No history of heat or cold intolerance, polyuria or polydipsia. EXTREMITIES: Denies muscle weakness, joint pain, pain on walking or stiffness. Vitals Vitals Vital Signs Date Time Temp Pulse Resp B/P (MAP) Pulse Ox O2 Delivery O2 Flow Rate FiO2 06/01/21 08:32 75 187/78 06/01/21 07:00 95 Room Air 06/01/21 06:23 98.2 18 98.2 Physical Exam Physical Exam General: Alert, Oriented X3, Cooperative, NO distress HEENT: Atraumatic, EOMI Lungs: Bibasilar rales Heart: RRR, no rubs Cardiovascular: S1, S2 Abdomen: Normal bowel sounds, Soft, No tenderness Extremities: +1 bilateral leg edema Skin: No breakdown, No significant lesion Neuro: Normal speech, Sensation intact Psych/Mental Status: Mental status NL, Mood NL General: Alert, Oriented X3, Cooperative, No acute distress Lungs: Clear, Wheezing, Crackles Abdomen: Normal bowel sounds, Soft, No tenderness Extremities: No clubbing, No cyanosis FINAL DIAGNOSIS Problems Medical Problems: (1) Chest pain Status: Acute Brief Hospital Course Mr. Moreira is a 55 old [sex] who presented with [ ] Discharge Medications Current Medications Magnesium Sulfate 50 ml @ 25 mls/hr 1X ONCE IV Last administered on 05/31/21at 18:00; Start 05/31/21 at 18:00; Stop 05/31/21 at 19:59; Status DC Ondansetron HCl (Zofran) 4 mg PRN Q8HRS PRN IVP NAUSEA/VOMITING; Start 05/31/21 at 18:15; Stop 06/01/21 at 07:46; Status DC Amlodipine Besylate (Norvasc) 10 mg DAILY PO Last administered on 06/01/21at 08:32; Start 06/01/21 at 09:00 Aspirin (Aspirin Chewable) 81 mg DAILYWBKFT PO Last administered on 06/01/21at 08:30; Start 06/01/21 at 08:00 Atorvastatin Calcium (Lipitor) 80 mg QHS PO Last administered on 05/31/21at 22:39; Start 05/31/21 at 21:00 Bumetanide (Bumex) 1 mg BID94 PO Last administered on 06/01/21 08:31; Start 06/01/21 at 09:00 Clopidogrel Bisulfate (Plavix) 75 mg DAILY PO Last administered on 06/01/21at 08:31; Start 06/01/21 at 09:00 Acetaminophen/ Hydrocodone Bitart (Lortab 5/325) 1 tab PRN Q6HRS PRN PO MODERATE TO SEVERE PAIN Last administered on 05/31/21at 19:03; Start 05/31/21 at 18:45 Isosorbide Mononitrate (Imdur) 60 mg DAILY PO Last administered on 06/01/21at 08 :31; Start 06/01/21 at 09:00 Metolazone (Zaroxolyn) 2.5 mg DAILY PO Last administered on 06/01/21at 08:31; Start 06/01/21 at 09:00 Nitroglycerin (Nitrostat) 0.4 mg PRN Q5MIN PRN SL CHEST PAIN; Start 05/31/21 at 18:45 Pantoprazole Sodium (Protonix) 40 mg BIDAC PO Last administered on 06/01/21at 08:30; Start 05/31/21 at 19:00 Senna/Docusate Sodium (Senna Plus) 2 tab PRN QEVNG PRN PO CONSTIPATION; Start 05/31/21 at 18:45 Tamsulosin HCl (Flomax) 0.4 mg DAILY PO Last administered on 06/01/21at 08:31; Start 06/01/21 at 09:00 Non-Formulary Medication (Empagliflozin (Jardiance)) 10 mg DAILY PO ; Start 06/01/21 at 09:00; Status UNV Gabapentin (Neurontin) 300 mg TID PO Last administered on 06/01/21at 08:30; Start 05/31/21 at 21:00 Hydralazine HCl (Apresoline) 100 mg TID PO Last administered on 06/01/21at 08:32; Start 05/31/21 at 21:00 Insulin Human Lispro (HumaLOG) 30 units TIDWMEALS SQ Last administered on 06/01/21at 12:13; Start 06/01/21 at 08:00 Losartan Potassium (Cozaar) 100 mg DAILY PO Last administered on 06/01/21at 08:31; Start 06/01/21 at 09:00 Lorazepam (Ativan Inj) 2 mg PRN Q6HRS PRN IVP ANXIETY / AGITATION; Start 05/31/21 at 18:45 Morphine Sulfate (Morphine Sulfate) 4 mg PRN Q15MIN PRN IVP CHEST PAIN Last administered on 06/01/21at 06:30; Start 05/31/21 at 18:45 Insulin Glargine (Lantus Syringe) 60 unit QHS SQ ; Start 05/31/21 at 21:00 Insulin Human Lispro (HumaLOG) 0-9 UNITS TIDWMEALS SQ Last administered on 06/01/21at 12:12; Start 06/01/21 at 08:00 Dextrose (Dextrose 50%-Water Syringe) 12.5 gm PRN Q15MIN PRN IV SEE COMMENTS; Start 05/31/21 at 18:45 Hydralazine HCl (Apresoline Inj) 10 mg PRN Q4HRS PRN IVP HYPERTENSION; Start at 18:45 Ondansetron HCl (Zofran) 4 mg PRN Q6HRS PRN IVP NAUSEA/VOMITING; Start 05/31/21 at 18:45 Al Hydroxide/Mg Hydroxide (Mylanta Plus Xs) 30 ml PRN Q3HRS PRN PO HEARTBURN / GAS; Start 05/31/21 at 18:45 Calcium Carbonate/ Glycine (Tums) 500 mg PRN Q3HRS PRN PO UPSET STOMACH; Start 05/31/21 at 18:45 Zolpidem Tartrate (Ambien) 5 mg PRN QHS PRN PO INSOMNIA, MAY REPEAT IN 1HR Last administered on 05/31/21at 22:54; Start 05/31/21 at 18:45 Acetaminophen (Tylenol) 650 mg PRN Q6HRS PRN PO Headaches, Temp > 101.5F; Start 05/31/21 at 18:45 Magnesium Hydroxide (Milk Of Magnesia) 2,400 mg PRN Q12HR PRN PO CONSTIPATION; Start 05/31/21 at 18:45 Heparin Sodium (Porcine) (Heparin Sodium) 5,000 unit Q8HRS SQ Last administered on 06/01/21at 06:29; Start 05/31/21 at 19:00 Active Scripts Active Hydrocodone-Apap 5-325 (Hydrocodone Bit/Acetaminophen) 1 Tab Tablet 1 Tab PO PRN Q6HRS PRN Atorvastatin Calcium 40 Mg Tablet 80 Mg PO QHS Amlodipine Besylate 10 Mg Tablet 10 Mg PO DAILY Nitrostat (Nitroglycerin) 0.4 Mg Tab.subl 0.4 Mg SL PRN Q5MIN PRN Isosorbide Mononitrate Er (Isosorbide Mononitrate) 30 Mg Tab.er.24h 60 Mg PO DAILY Metolazone 2.5 Mg Tablet 2.5 Mg PO DAILY 30 Days Bumetanide 1 Mg Tablet 1 Mg PO BID94 30 Days Flomax (Tamsulosin Hcl) 0.4 Mg Cap.er.24h 0.4 Mg PO DAILY Children's Aspirin (Aspirin) 81 Mg Tab.chew 81 Mg PO DAILYWBKFT Reported Metolazone 2.5 Mg Tablet 2.5 Mg PO BID Bumetanide 2 Mg Tablet 2 Mg PO DAILY Vitamin D3 (Vitamin D) 25 Mcg Tablet 25 Mcg PO DAILY 1,000 UNITS = 25 MCG Amitriptyline Hcl 25 Mg Tablet 25 Mg PO HS Jardiance (Empagliflozin) 10 Mg Tablet 10 Mg PO DAILY Losartan Potassium 100 Mg Tablet 100 Mg PO DAILY Senna-Docusate Sodium Tablet (Sennosides/Docusate Sodium) 1 Each Tablet 2 Tab PO PRN QEVNG PRN 5 Days Clopidogrel (Clopidogrel Bisulfate) 75 Mg Tablet 75 Mg PO DAILY Gabapentin 600 Mg Tablet 300 Mg PO TID Protonix (Pantoprazole Sodium) 40 Mg Tablet.dr 40 Mg PO BID Hydralazine Hcl 100 Mg Tablet 100 Mg PO TID Levemir Flexpen (Insulin Detemir) 100 Unit/1 Ml Insuln.pen 60 Unit SQ HS Novolog Flexpen (Insulin Aspart) 100 Unit/1 Ml Insuln.pen 30 Unit SQ TIDAC Vital Signs Vital Signs Date Time Temp Pulse Resp B/P (MAP) Pulse Ox O2 Delivery O2 Flow Rate FiO2 06/01/21 10:23 98.3 87 18 125/35 (65) 97 Room Air 98.3 Labs Laboratory Tests Test 05/31/21 16:20 05/31/21 17:05 05/31/21 20:55 06/01/21 02:41 White Blood Count 7.9 x10^3/uL (4.0-11.0) Red Blood Count 3.13 x10^6/uL (4.30-5.70) Hemoglobin 9.2 g/dL (13.0-17.5) Hematocrit 27.5 % (39.0-53.0) Mean Corpuscular Volume 88 fL (79-100) Mean Corpuscular Hemoglobin 29 pg (25-35) Mean Corpuscular Hemoglobin Concent 33 g/dL (31-37) Red Cell Distribution Width 13.9 % (11.5-14.5) Platelet Count 252 x10^3/uL (140-400) Neutrophils (%) (Auto) 80 % (31-73) Lymphocytes (%) (Auto) 11 % (24-48) Monocytes (%) (Auto) 7 % (0-9) Eosinophils (%) (Auto) 2 % (0-3) Basophils (%) (Auto) 1 % (0-3) Neutrophils # (Auto) 6.4 x10^3/uL (1.8-7.7) Lymphocytes # (Auto) 0.8 x10^3/uL (1.0-4.8) Monocytes # (Auto) 0.5 x10^3/uL (0.0-1.1) Eosinophils # (Auto) 0.1 x10^3/uL (0.0-0.7) Basophils # (Auto) 0.1 x10^3/uL (0.0-0.2) Sodium Level 142 mmol/L (136-145) Potassium Level 4.0 mmol/L (3.5-5.1) Chloride Level 105 mmol/L (98-107) Carbon Dioxide Level 25 mmol/L (21-32) Anion Gap 12 (6-14) Blood Urea Nitrogen 43 mg/dL (8-26) Creatinine 2.4 mg/dL (0.7-1.3) Estimated GFR (Cockcroft-Gault) 34.1 BUN/Creatinine Ratio 18 (6-20) Glucose Level 108 mg/dL (70-99) Calcium Level 9.1 mg/dL (8.5-10.1) Magnesium Level 1.5 mg/dL (1.8-2.4) Total Bilirubin 0.2 mg/dL (0.2-1.0) Aspartate Amino Transf (AST/SGOT) 12 U/L (15-37) Alanine Aminotransferase (ALT/SGPT) 11 U/L (16-63) Alkaline Phosphatase 88 U/L (46-116) Troponin I Quantitative 0.027 ng/mL (0.000-0.055) 0.043 ng/mL (0.000-0.055) HM-Qjq-Y-Type Natriuretic Peptide 2392 pg/mL (0-124) Total Protein 8.1 g/dL (6.4-8.2) Albumin 3.7 g/dL (3.4-5.0) Albumin/Globulin Ratio 0.8 (1.0-1.7) Lipase 238 U/L (73-393) Glucose (Fingerstick) 105 mg/dL (70-99) Test 06/01/21 06:10 06/01/21 08:24 06/01/21 11:33 White Blood Count 6.1 x10^3/uL (4.0-11.0) Red Blood Count 3.19 x10^6/uL (4.30-5.70) Hemoglobin 9.3 g/dL (13.0-17.5) Hematocrit 28.6 % (39.0-53.0) Mean Corpuscular Volume 90 fL (79-100) Mean Corpuscular Hemoglobin 29 pg (25-35) Mean Corpuscular Hemoglobin Concent 32 g/dL (31-37) Red Cell Distribution Width 14.1 % (11.5-14.5) Platelet Count 248 x10^3/uL (140-400) Neutrophils (%) (Auto) 63 % (31-73) Lymphocytes (%) (Auto) 25 % (24-48) Monocytes (%) (Auto) 8 % (0-9) Eosinophils (%) (Auto) 3 % (0-3) Basophils (%) (Auto) 1 % (0-3) Neutrophils # (Auto) 3.9 x10^3/uL (1.8-7.7) Lymphocytes # (Auto) 1.5 x10^3/uL (1.0-4.8) Monocytes # (Auto) 0.5 x10^3/uL (0.0-1.1) Eosinophils # (Auto) 0.2 x10^3/uL (0.0-0.7) Basophils # (Auto) 0.0 x10^3/uL (0.0-0.2) Sodium Level 141 mmol/L (136-145) Potassium Level 4.3 mmol/L (3.5-5.1) Chloride Level 103 mmol/L (98-107) Carbon Dioxide Level 25 mmol/L (21-32) Anion Gap 13 (6-14) Blood Urea Nitrogen 48 mg/dL (8-26) Creatinine 2.4 mg/dL (0.7-1.3) Estimated GFR (Cockcroft-Gault) 34.1 Glucose Level 257 mg/dL (70-99) Calcium Level 8.6 mg/dL (8.5-10.1) Magnesium Level 2.0 mg/dL (1.8-2.4) Glucose (Fingerstick) 325 mg/dL (70-99) 280 mg/dL (70-99) Laboratory Tests Test 05/31/21 16:20 05/31/21 17:05 05/31/21 20:55 06/01/21 02:41 White Blood Count 7.9 x10^3/uL (4.0-11.0) Red Blood Count 3.13 x10^6/uL (4.30-5.70) Hemoglobin 9.2 g/dL (13.0-17.5) Hematocrit 27.5 % (39.0-53.0) Mean Corpuscular Volume 88 fL (79-100) Mean Corpuscular Hemoglobin 29 pg (25-35) Mean Corpuscular Hemoglobin Concent 33 g/dL (31-37) Red Cell Distribution Width 13.9 % (11.5-14.5) Platelet Count 252 x10^3/uL (140-400) Neutrophils (%) (Auto) 80 % (31-73) Lymphocytes (%) (Auto) 11 % (24-48) Monocytes (%) (Auto) 7 % (0-9) Eosinophils (%) (Auto) 2 % (0-3) Basophils (%) (Auto) 1 % (0-3) Neutrophils # (Auto) 6.4 x10^3/uL (1.8-7.7) Lymphocytes # (Auto) 0.8 x10^3/uL (1.0-4.8) Monocytes # (Auto) 0.5 x10^3/uL (0.0-1.1) Eosinophils # (Auto) 0.1 x10^3/uL (0.0-0.7) Basophils # (Auto) 0.1 x10^3/uL (0.0-0.2) Sodium Level 142 mmol/L (136-145) Potassium Level 4.0 mmol/L (3.5-5.1) Chloride Level 105 mmol/L (98-107) Carbon Dioxide Level 25 mmol/L (21-32) Anion Gap 12 (6-14) Blood Urea Nitrogen 43 mg/dL (8-26) Creatinine 2.4 mg/dL (0.7-1.3) Estimated GFR (Cockcroft-Gault) 34.1 BUN/Creatinine Ratio 18 (6-20) Glucose Level 108 mg/dL (70-99) Calcium Level 9.1 mg/dL (8.5-10.1) Magnesium Level 1.5 mg/dL (1.8-2.4) Total Bilirubin 0.2 mg/dL (0.2-1.0) Aspartate Amino Transf (AST/SGOT) 12 U/L (15-37) Alanine Aminotransferase (ALT/SGPT) 11 U/L (16-63) Alkaline Phosphatase 88 U/L (46-116) Troponin I Quantitative 0.027 ng/mL (0.000-0.055) 0.043 ng/mL (0.000-0.055) UF-Umz-M-Type Natriuretic Peptide 2392 pg/mL (0-124) Total Protein 8.1 g/dL (6.4-8.2) Albumin 3.7 g/dL (3.4-5.0) Albumin/Globulin Ratio 0.8 (1.0-1.7) Lipase 238 U/L (73-393) Glucose (Fingerstick) 105 mg/dL (70-99) Test 06/01/21 06:10 06/01/21 08:24 06/01/21 11:33 White Blood Count 6.1 x10^3/uL (4.0-11.0) Red Blood Count 3.19 x10^6/uL (4.30-5.70) Hemoglobin 9.3 g/dL (13.0-17.5) Hematocrit 28.6 % (39.0-53.0) Mean Corpuscular Volume 90 fL (79-100) Mean Corpuscular Hemoglobin 29 pg (25-35) Mean Corpuscular Hemoglobin Concent 32 g/dL (31-37) Red Cell Distribution Width 14.1 % (11.5-14.5) Platelet Count 248 x10^3/uL (140-400) Neutrophils (%) (Auto) 63 % (31-73) Lymphocytes (%) (Auto) 25 % (24-48) Monocytes (%) (Auto) 8 % (0-9) Eosinophils (%) (Auto) 3 % (0-3) Basophils (%) (Auto) 1 % (0-3) Neutrophils # (Auto) 3.9 x10^3/uL (1.8-7.7) Lymphocytes # (Auto) 1.5 x10^3/uL (1.0-4.8) Monocytes # (Auto) 0.5 x10^3/uL (0.0-1.1) Eosinophils # (Auto) 0.2 x10^3/uL (0.0-0.7) Basophils # (Auto) 0.0 x10^3/uL (0.0-0.2) Sodium Level 141 mmol/L (136-145) Potassium Level 4.3 mmol/L (3.5-5.1) Chloride Level 103 mmol/L (98-107) Carbon Dioxide Level 25 mmol/L (21-32) Anion Gap 13 (6-14) Blood Urea Nitrogen 48 mg/dL (8-26) Creatinine 2.4 mg/dL (0.7-1.3) Estimated GFR (Cockcroft-Gault) 34.1 Glucose Level 257 mg/dL (70-99) Calcium Level 8.6 mg/dL (8.5-10.1) Magnesium Level 2.0 mg/dL (1.8-2.4) Glucose (Fingerstick) 325 mg/dL (70-99) 280 mg/dL (70-99) Allergies Allergies Coded Allergies Type Severity Reaction Last Updated Verified Sulfa (Sulfonamide Antibiotics) Allergy Intermediate Rash 05/31/21 Yes Justicifation of Admission Dx: Justifications for Admission: Justification of Admission Dx: N/A CHANELL ALBERTS MD Jun 01, 2021 12:23
[2021-06-01] MEDS ORDERED: ACET325T21 PO (12:27)
[2021-06-01] MEDS ORDERED: INSU100V35 SQ (12:27)
--- NOTE | 2021-06-01 12:29 | DISCH ---
DISCHARGE INSTRUCTIONS Condition on Discharge Condition on Discharge: Stable Activity After Discharge Activity Instructions for Disc: Activity as tolerated Lifting Instructions after Dis: No heavy lifting, No pulling or pushing Exercise Instruction after Dis: Progress as tolerated Driving Instructions after Dis: Do not drive Weight Bearing Status after Di: Full weight bearing Diet after Discharge Diet after Discharge: Cardiac Diet Texture: Regular Liquid Texture: Thin Liquid Swallowing Supervision: None needed Wound Incision Care Wound/Incision Care: Other, see below Wound Care Equipment: Dressings, Sutures/suzanne Checks after Discharge Checks after discharge: Check blood press - daily, Check blood sugar, ac/hs Contacting the DR. after DC Call your doctor for: If your condition worsens Follow-Up Follow up with: SEE PCP IN 3-7 DAYS Treatment/Equipment after DC Adaptive Equipment Issued: None Discharge Respiratory Equipmen: Oxygen CHANELL ALBERTS MD Jun 01, 2021 12:28
[2021-06-01] MEDS: HYDROcodone/APAP 5/325MG 1 TAB TABLET PO PRN (13:28)
[2021-06-01 13:31] VITALS: BP 146/61
--- NOTE | 2021-06-01 14:30 | NUR ---
Discharge Note: HAILEY MOREIRA Discharge instructions and discharge home medications reviewed with Patient and a copy given. All questions have been answered and understanding verbalized. All belongings take with patient. The following instructions and handouts were given: Chest pain Discontinued lines and drains: Peripheral IV intact. Patient discharged to Home or Self Care with Self via Wheelchair
== END 2021-06-01 14:40 | disposition home or self-care (01) ==
LOC: ER 16:01 → ED HOLD 19:19 → 6 SOUTH 19:19
PROVIDERS: ADMIT Family Medicine; ATTEND Family Medicine
DX: R07.89 Other chest pain (principal); I13.0 Hypertensive heart and chronic kidney disease with heart failure and stage 1 through stage 4 chronic kidney disease, or unspecified chronic kidney disease; E11.22 Type 2 diabetes mellitus with diabetic chronic kidney disease; I50.32 Chronic diastolic (congestive) heart failure; N18.30 Chronic kidney disease, stage 3 unspecified; E11.65 Type 2 diabetes mellitus with hyperglycemia; Z20.822 Contact with and (suspected) exposure to COVID-19; D63.8 Anemia in other chronic diseases classified elsewhere; E78.00 Pure hypercholesterolemia, unspecified; E78.5 Hyperlipidemia, unspecified; E83.42 Hypomagnesemia; F14.10 Cocaine abuse, uncomplicated; G47.33 Obstructive sleep apnea (adult) (pediatric); I25.10 Atherosclerotic heart disease of native coronary artery without angina pectoris; I27.20 Pulmonary hypertension, unspecified; I73.9 Peripheral vascular disease, unspecified; I48.91 Unspecified atrial fibrillation; J44.9 Chronic obstructive pulmonary disease, unspecified; F17.210 Nicotine dependence, cigarettes, uncomplicated; Z79.4 Long term (current) use of insulin; Z79.82 Long term (current) use of aspirin; Z79.899 Other long term (current) drug therapy; Z82.49 Family history of ischemic heart disease and other diseases of the circulatory system; Z86.73 Personal history of transient ischemic attack (TIA), and cerebral infarction without residual deficits; Z91.19 Patient's noncompliance with other medical treatment and regimen; Z79.01 Long term (current) use of anticoagulants
CPT/HCPCS: 36415; 71045; 80048; 80053; 82962; 83690; 83735; 83880; 84484; 85025; 93005; 96365; 96366; 96372; 99285; G0378; J1644; J1815; J2270; J3475; G0379

== ENCOUNTER 2021-10-15 06:33 | Inpatient (IN) | payer MEDICAID ==
[~2021-10-15] VITALS: Ht 174 cm; Wt 124.0 kg
[~2021-10-15 06:33] MED LIST changes: +ACET325T21 PO; +AMIT25TA PO; +BUME2TAB3 PO; +CHOL10004 PO; +INSU100V35 SQ
--- NOTE | 2021-10-15 06:38 | PHYS DOC ---
Past Medical History Past Medical History: CHF, Diabetes-Type II, High Cholesterol, Hypertension, Pancreatitis, Renal Disease, Vascular Disease Additional Past Medical Histor: CHRONIC KIDNEY DISEASE, neuropathy, prostate, PULMONARY HTN Past Surgical History: Other Additional Past Surgical Histo: HERNIA REPAIR, R leg bypass Smoking Status: Current Every Day Smoker Alcohol Use: Occasionally Drug Use: Cocaine General Adult EDM: Chief Complaint: CHEST PAIN HPI: HPI: Patient is a 56 year old male who presents via EMS for chest pain. He reports that he has left-sided, sharp, constant chest pain, which woke him up from sleep about an hour prior to arrival. He does report dyspnea. He denies dizziness, diaphoresis, abdominal pain, nausea or vomiting. He reports of the past 2 to 3 days he feels like his "kidneys are bothering me." He indicates he has bilateral lower flank pain, vascilating from left to right and worse with changes in position. No specific trauma reported. Chest pain does not radiate to this back. He denies urinary symptoms, incontinence, motor weakness, or numbness. He does have chronic kidney disease, and he still urinates regularly. He is not on dialysis. He admits that he actually has had the same chest pain symptoms intermittently every few months. He reports that he sees a sash sticker at [facility]. He is not sure if he is ever seen a sash sticker here, though records indicate that he has seen our cardiology services in the past. He is unsure of what work-up exactly he has h ad done. To his knowledge he has never had a known TN, denies having coronary artery stents. He reports only intermittent compliance with medications. He also admits to using alcohol, tobacco and frequently also uses cocaine. Last use of cocaine was "2 or 3 days ago." He snorts cocaine and denies IVDU. He has nitroglycerin at home but refuses to use it because he does not like the way it makes him feel because it gives him a headache. EMS did not give him any medications in route. Review of Systems: Review of Systems: Constitutional: Denies fever or chills. [] HENT: Denies nasal congestion or sore throat. [] Respiratory: Shortness of breath. Occasional dry cough. Denies hemoptysis Cardiovascular: Chest pain. Peripheral edema, baseline GI: Denies abdominal pain, nausea, vomiting Musculoskeletal: Denies back pain or joint pain. [] Integument: Denies rash. [] Neurologic: Denies headache, focal weakness or sensory changes. Denies dizziness or syncope Psychiatric: Anxiety as it pertains to current clinical condition. Admits to use of alcohol and cocaine. Heart Score: C/O Chest Pain: Yes HEART Score for Chest Pain: HEART Score for Chest Pain Response (Comments) Value History Moderately Suspicious 1 ECG Nonspecific Repolarizatio 1 Age >45 - < 65 1 Risk Factors >3 Risk Factors or Hx CAD 2 Troponin >1-<3x Normal Limit 1 Total 6 Risk Factors: Risk Factors: DM, Current or recent (<one month) smoker, HTN, HLP, family h istory of CAD, obesity. Risk Scores: Score 0 - 3: 2.5% MACE over next 6 weeks - Discharge Home Score 4 - 6: 20.3% MACE over next 6 weeks - Admit for Clinical Observation Score 7 - 10: 72.7% MACE over next 6 weeks - Early Invasive Strategies Allergies: Allergies: Allergies Coded Allergies Type Severity Reaction Last Updated Verified Sulfa (Sulfonamide Antibiotics) Allergy Intermediate Rash 05/31/21 Yes Physical Exam: PE: Constitutional: Well developed, well nourished, no acute distress, non-toxic appearance. This patient is chronically ill-appearing, appears older than stated age. He does appear to be uncomfortable. HENT: Normocephalic, atraumatic Eyes: Conjunctiva normal, no discharge. Sclera are anicteric Neck: Normal range of motion, no tenderness, supple, no stridor. Trachea midline. Cardiovascular:Heart rate regular rhythm, +2 radial and +2 posterior tibial pulses bilaterally Lungs & Thorax: Managed breath sounds in bilateral bases, mild tachypnea, upper and midlung laurent are clear to auscultation, no rales, rhonchi or wheezes. No stridor. No retractions. Speaks in full and clear senses. No central cyanosis. No evidence of acute distress. Palpation of the left chest reproduces his pain. No palpable crepitus, step-offs or subcutaneous emphysema. No evidence of rash or deformity. Abdomen: Abdomen is quite obese, mildly distended, no tenderness to palpation, no obvious fluid wave. No obvious audible bruit. No obvious palpable pulsatile mass. No CVA tenderness. No flank or abdominal ecchymoses. Skin: Warm, dry, no erythema, no rash. No jaundice. Back: No tenderness, no CVA tenderness. [] Extremities: No tenderness, no cyanosis, no clubbing, ROM intact, bilateral, sym metric 1+ lower extremity edema. No calf tenderness. Neurologic: Alert and oriented X 3, normal motor function, normal sensory function, no focal deficits noted. [] Psychologic: Affect is somewhat bizarre, he is anxious, he is overall cooperative. EKG: EKG: EKG is interpreted at 0640 Rhythm is sinus Rate is 90 bpm Eldridge is normal No STEMI Radiology/Procedures: Radiology/Procedures: IMAGING REPORT Signed PATIENT: HAILEY MOREIRA ACCOUNT: [id number] : 1965 LOCATION: ER AGE: 56 SEX: M EXAM STATUS: PRE ER ORD. PHYSICIAN: SPENCER TRONCOSO DO REASON: chest pain PROCEDURE: PORTABLE CHEST 1V EXAM: XR CHEST 1V 10/15/2021 7:05 AM CLINICAL INDICATION: Chest pain COMPARISON: Chest radiograph 05/31/2021 TECHNIQUE: AP upright view of the chest FINDINGS: Mild cardiomegaly is unchanged. Lungs are adequately expanded. There are mild right basilar opacities, likely atelectasis. No pleural effusion or pneumothorax. IMPRESSION: Cardiomegaly and mild right basilar opacities, likely atelectasis. Electronically signed by: Padmini Brandt MD (10/15/2021 7:28 AM) [id number] DICTATED and SIGNED BY: PADMINI BRANDT MD DATE: 10/15/21 [id number] Course & Med Decision Making: Course & Med Decision Making Pertinent Labs and Imaging studies reviewed. (See chart for details) The patient's chest pain was resolved after 2 sublingual nitroglycerin. He is given Tylenol for headache after nitroglycerin. He is given p.o. aspirin. He is given a dose of IV Ativan. Blood pressure markedly improved. He is resting comfortably. He reports no further chest pain. He reports no further dyspnea. He manifests no evidence of hypoxia or respiratory distress. It took quite a long time to obtain labs, once labs resulted, I contacted Dr. Ackerman for admission. The patient is informed of the findings, differential diagnosis and my recommendation for admission, he is comfortable with this. Patient is resting comfortably on the ED gurney. He reports that he feels like he has bilateral lower back pain, which is worse with movement and changes in position, specifically rolling around on the bed, which she is doing briskly and without difficulty. I explained that NSAIDs would not be appropriate given his chronic kidney disease, he is already been given aspirin and Tylenol. I offered muscle relaxers, which she declines. He manifests no evidence of distress. He is still comfortable to plan for admission. He continues to deny any return of chest pain or dyspnea. Dragon Disclaimer: Dragon Disclaimer: This electronic medical record was generated, in whole or in part, using a voice recognition dictation system. Departure Departure Impression: Primary Impression: Chest pain Additional Impressions: CHF (congestive heart failure) Chronic kidney disease Diabetes mellitus Cocaine use Disposition: ADMITTED INPATIENT Admitting Physician: AMRITA Condition: GUARDED (Dr. Ackerman) Referrals: NIXON MURRAY JR, MD (PCP) SPENCER TRONCOSO DO Oct 15, 2021 06:38
[2021-10-15] MEDS ORDERED: ASPIRIN CHEWABLE 81 MG TABLET. PO ONE (07:30)
--- NOTE | 2021-10-15 07:31 | RAD ---
EXAM: XR CHEST 1V 10/15/2021 7:05 AM CLINICAL INDICATION: Chest pain COMPARISON: Chest radiograph 05/31/2021 TECHNIQUE: AP upright view of the chest FINDINGS: Mild cardiomegaly is unchanged. Lungs are adequately expanded. There are mild right basila r opacities, likely atelectasis. No pleural effusion or pneumothorax. IMPRESSION: Cardiomegaly and mild right basilar opacities, likely atelectasis. Electronically signed by: Padmini Brandt MD (10/15/2021 7:28 AM) [id number]
[2021-10-15] MEDS: NITROGLYCERIN SUBLINGUAL 0.4 MG BOTTLE OF 25. SL PRN ×2 (07:38→07:46)
[2021-10-15] MEDS ORDERED: ACETAMINOPHEN 500 MG TABLET PO ONE (08:00)
[2021-10-15 08:45] LABS: BASO # 0.1 x10^3/uL (0.0-0.2); BASO % 1 % (0-3); EOS # 0.2 x10^3/uL (0.0-0.7); EOS % 4 % (0-3); HEMATOCRIT 25.8 % (39.0-53.0); HEMOGLOBIN 8.1 g/dL (13.0-17.5); LYMPH # 1.1 x10^3/uL (1.0-4.8); LYMPH % 22 % (24-48); MEAN CORPUSCULAR HEMOGLOBIN 27 pg (25-35); MEAN CORPUSCULAR HGB CONC 32 g/dL (31-37); MEAN CORPUSCULAR VOLUME 87 fL (79-100); MONO # 0.4 x10^3/uL (0.0-1.1); MONO % 8 % (0-9); NEUT # 3.3 x10^3/uL (1.8-7.7); NEUT % 65 % (31-73); PLATELET COUNT 243 x10^3/uL (140-400); RED BLOOD COUNT 2.98 x10^6/uL (4.30-5.70); RED CELL DISTRIBUTION WIDTH 15.3 % (11.5-14.5)
[2021-10-15 08:57] LABS: CREATININE 2.6 mg/dL (0.7-1.3); GFR 30.9; POTASSIUM 4.8 mmol/L (3.5-5.1)
[2021-10-15 09:03] LABS: ALBUMIN/GLOBULIN RATIO 0.7 (1.0-1.7); MAGNESIUM 1.4 mg/dL (1.8-2.4); TOTAL BILIRUBIN 0.2 mg/dL (0.2-1.0); TOTAL PROTEIN 7.2 g/dL (6.4-8.2)
[2021-10-15 09:07] LABS: BILIRUBIN,URINE NEGATIVE (NEG); CLARITY,URINE CLEAR; COLOR,URINE YELLOW; NITRITE,URINE NEGATIVE (NEG); PH,URINE 5.5 (<5.0-8.0); PROTEIN,URINE 100 mg/dL (NEG-TRACE); UROBILINOGEN,URINE 0.2 mg/dL (0.2 mg/dL)
[2021-10-15 09:08] LABS: BARBITURATES NEG (NEG); BENZODIAZEPINES NEG (NEG); CANNABINOIDS NEG (NEG); COCAINE POS (NEG); METHADONE NEG (NEG); OPIATES NEG (NEG); PHENCYCLIDINE NEG (NEG)
[2021-10-15 09:10] LABS: AMPHETAMINE/METHAMPHETAMINE NEG (NEG)
[2021-10-15 09:20] LABS: BACTERIA,URINE 0 /HPF (0-FEW); RBC,URINE 0 /HPF (0-2); WBC,URINE 0 /HPF (0-4)
[2021-10-15] MEDS ORDERED: ACETAMINOPHEN 325 MG TABLET. PO PRN (09:45)
[2021-10-15] MEDS ORDERED: SENNOSIDES/DOCUSATE 8.6/50MG TABLET. PO PRN (10:30)
[2021-10-15] MEDS ORDERED: NITROGLYCERIN SUBLINGUAL 0.4 MG BOTTLE OF 25. SL PRN (10:30)
--- NOTE | 2021-10-15 10:58 | EKG ---
[facility] [address] [place] [address] Test Date: 2021-10-15 Test Time: 06:38:00 Pat Name: HAILEY MOREIRA Department: Room: ED HOLD 10 Gender: M Transitional Care Manager: : 1965 Requested By: SPENCER TRONCOSO Order Number: [id number] Reading MD: Damon Huerta MD Measurements Intervals Tabor Rate: 90 P: 27 ME: 232 QRS: 64 QRSD: 82 T: -164 QT: 356 QTc: 440 Interpretive Statements SINUS RHYTHM ATRIAL PREMATURE COMPLEX(ES) Electronically Signed On 10-15-2021 13:33:07 MEDICAL CODING MANAGER by Damon Huerta MD
[2021-10-15] MEDS: metOLazone 2.5 MG TABLET PO SCH (11:00)
[2021-10-15] MEDS: CLOPIDOGREL BISULFATE 75 MG TABLET PO SCH (11:00)
[2021-10-15] MEDS: LOSARTAN POTASSIUM 50 MG TABLET. PO SCH (11:00)
[2021-10-15] MEDS: ASPIRIN CHEWABLE 81 MG TABLET. PO SCH (11:00)
[2021-10-15] MEDS: BUMETANIDE 1 MG TABLET. PO SCH ×2 (11:00→16:00)
[2021-10-15] MEDS: ISOSORBIDE MONONITRATE ER 30 MG TAB.ER.24H PO SCH (11:00)
[2021-10-15] MEDS: TAMSULOSIN 0.4 MG CAP.ER.24H. PO SCH (11:00)
[2021-10-15] MEDS: PANTOPRAZOLE 40 MG TABLET.DR. PO SCH ×2 (11:30→16:30)
[2021-10-15 12:30] VITALS: BP 209/80
[2021-10-15 13:28] VITALS: BP 184/78
--- NOTE | 2021-10-15 13:43 | PDOC1 ---
History and Physical Date of Service: DOS: DATE: 10/15/21 TIME: 13:35 Chief Complaint: Chief Complain: chest pain History of Present Illness: HPI: Patient is a 6-year-old male presented to the emergency room overnight with chest pain. Reported left sharp chest pain that awoke him from sleep. Having a bit of shortness of breath with that particularly on exertion. Chest pain does not radiate anywhere according to him. She has complaining of bilateral flank pain. He does have a history of CKD 4 baseline Cr around 2.5. Patient is also a frequent cocaine user. Last use about 2 days ago. Also endorses alcohol and tobacco use. Reports he has recently seen a vascular surgeon for bilateral lower extremity pain. From what he describes sounds like they did an angiogram in his lower extremities and he says he was told by one doctor he needs surgery and another that he does not. He is supposed to follow-up with the vascular team on he said. In the emergency room work-up showed elevated BNP. Does appear little fluid overloaded on exam. Try 1 dose of Lasix resume home meds Cardiology and nephrology consult Past Medical/Surgical History: PMH/PSH: Past Medical History: CHF, Diabetes-Type II, High Cholesterol, Hypertension, Pancreatitis, Renal Disease, Vascular Disease Additional Past Medical Histor: CHRONIC KIDNEY DISEASE, neuropathy, prostate, PULMONARY HTN Additional Past Surgical Histo: HERNIA REPAIR, R leg bypass Smoking Status: Current Every Day Smoker Alcohol Use: Occasionally Drug Use: Cocaine Allergies: Allergies: Coded Allergies: Sulfa (Sulfonamide Antibiotics) (Verified Allergy, Intermediate, Rash, 05/31/21) Family History: Family History: patient did not know of any Current Medications: Current Medications Current Medications Aspirin (Aspirin Chewable) 324 mg 1X ONCE PO Last administered on 10/15/21at 07:39; Start 10/15/21 at 07:30; Stop 10/15/21 at 07:31; Status DC Nitroglycerin (Nitrostat) 0.4 mg PRN Q5MIN PRN SL CHEST PAIN Last administered on 10/15/21at 07:46; Start 10/15/21 at 07:00 Acetaminophen (Tylenol) 1,000 mg 1X ONCE PO Last administered on 10/15/21at 08:06; Start 10/15/21 at 08:00; Stop 10/15/21 at 08:01; Status DC Lorazepam (Ativan Inj) 1 mg 1X ONCE IVP Last administered on 10/15/21at 08:04; Start 10/15/21 at 08:00; Stop 10/15/21 at 08:01; Status DC Lorazepam (Ativan Inj) 2 mg STK-MED ONCE .ROUTE ; Start 10/15/21 at 08:00; Stop 10/15/21 at 08:00; Status DC Acetaminophen (Tylenol) 650 mg PRN Q4HRS PRN PO pain or fever; Start 10/15/21 at 09:45 Morphine Sulfate (Morphine Sulfate) 4 mg PRN Q4HRS PRN IVP chest pain; Start 10/15/21 at 09:45 Amitriptyline HCl (Elavil) 25 mg HS PO ; Start 10/15/21 at 21:00 Amlodipine Besylate (Norvasc) 10 mg DAILY PO Last administered on 10/15/21at 11:00; Start 10/15/21 at 11:00 Aspirin (Aspirin Chewable) 81 mg DAILYWBKFT PO Last administered on 10/15/21at 11:00; Start 10/15/21 at 11:00 Atorvastatin Calcium (Lipitor) 80 mg QHS PO ; Start 10/15/21 at 21:00 Bumetanide (Bumex) 1 mg BID94 PO Last administered on 10/15/21at 11:00; Start 10/15/21 at 11:00 Clopidogrel Bisulfate (Plavix) 75 mg DAILY PO Last administered on 10/15/21at 11:00; Start 10/15/21 at 11:00 Isosorbide Mononitrate (Imdur) 60 mg DAILY PO Last administered on 10/15/21at 11:00; Start 10/15/21 at 11:00 Metolazone (Zaroxolyn) 2.5 mg DAILY PO Last administered on 10/15/21at 11:00; Start 10/15/21 at 11:00 Nitroglycerin (Nitrostat) 0.4 mg PRN Q5MIN PRN SL CHEST PAIN; Start 10/15/21 at 10:30 Pantoprazole Sodium (Protonix) 40 mg BIDAC PO Last administered on 10/15/21at 11:30; Start 10/15/21 at 11:30 Senna/Docusate Sodium (Senna Plus) 2 tab PRN QEVNG PRN PO CONSTIPATION; Start 10/15/21 at 10:30 Tamsulosin HCl (Flomax) 0.4 mg DAILY PO Last administered on 10/15/21at 11:00; Start 10/15/21 at 11:00 Losartan Potassium (Cozaar) 100 mg DAILY PO Last administered on 10/15/21at 11:00; Start 10/15/21 at 11:00 Active Scripts Active Admelog (Insulin Lispro) 100 Unit/1 Ml Vial 0 Units SQ TIDWMEALS 14 Days Acetaminophen 325 Mg Tablet 650 Mg PO PRN Q6HRS PRN 30 Days Hydrocodone-Apap 5-325 (Hydrocodone Bit/Acetaminophen) 1 Tab Tablet 1 Tab PO PRN Q6HRS PRN Atorvastatin Calcium 40 Mg Tablet 80 Mg PO QHS Amlodipine Besylate 10 Mg Tablet 10 Mg PO DAILY Nitrostat (Nitroglycerin) 0.4 Mg Tab.subl 0.4 Mg SL PRN Q5MIN PRN Isosorbide Mononitrate Er (Isosorbide Mononitrate) 30 Mg Tab.er.24h 60 Mg PO DAILY Metolazone 2.5 Mg Tablet 2.5 Mg PO DAILY 30 Days Bumetanide 1 Mg Tablet 1 Mg PO BID94 30 Days Flomax (Tamsulosin Hcl) 0.4 Mg Cap.er.24h 0.4 Mg PO DAILY Children's Aspirin (Aspirin) 81 Mg Tab.chew 81 Mg PO DAILYWBKFT Reported Vitamin D3 (Vitamin D) 25 Mcg Tablet 25 Mcg PO DAILY 1,000 UNITS = 25 MCG Amitriptyline Hcl 25 Mg Tablet 25 Mg PO HS Jardiance (Empagliflozin) 10 Mg Tablet 10 Mg PO DAILY Losartan Potassium 100 Mg Tablet 100 Mg PO DAILY Senna-Docusate Sodium Tablet (Sennosides/Docusate Sodium) 1 Each Tablet 2 Tab PO PRN QEVNG PRN 5 Days Clopidogrel (Clopidogrel Bisulfate) 75 Mg Tablet 75 Mg PO DAILY Gabapentin 600 Mg Tablet 300 Mg PO TID Protonix (Pantoprazole Sodium) 40 Mg Tablet.dr 40 Mg PO BID Hydralazine Hcl 100 Mg Tablet 100 Mg PO TID Levemir Flexpen (Insulin Detemir) 100 Unit/1 Ml Insuln.pen 60 Unit SQ HS Novolog Flexpen (Insulin Aspart) 100 Unit/1 Ml Insuln.pen 30 Unit SQ TIDAC ROS: Review of Systems Review of System Unless noted in HPI 14 point review systems negative Physical Exam: Vital Signs: Vital Signs Date Time Temp Pulse Resp B/P (MAP) Pulse Ox O2 Delivery O2 Flow Rate FiO2 10/15/21 13:28 87 184/78 (113) 10/15/21 10:05 98.1 21 97 Room Air 98.1 Physcial Exam: GEN: Sitting up in bed on the phone HEENT: Normal cephalic, atraumatic, external auditory canals are patent EYES: Extraocular muscles are intact, pupil are equally round and reactive to light and accommodation MUSCULOSKELETAL: Well developed , well nourished, good range of motion ENDOCRINE: No thyromegaly was palpated LYMPHATICS: No cervical chain or axillary nodes were noted HEMATOPOIETIC: No bruising NECK: Supple, no JVD, no thyromegaly was noted LUNGS: Clear to auscultation in all lung laurent without rhonchi or wheezing HEART: RRR, S1, S2 present. Peripheral pulses intact, no obvious murmurs noted ABDOMEN: Soft, nntender. Positive bowel sounds, no organomegaly, normal bowel sounds EXTREMITIES: Bilateral lower extremity edema NEUROLOGIC: Normal speech and tone. A&O x 3, moves all extremities, no obvious focal deficits PSYCHIATRIC: Normal affect, normal mood. Stable SKIN: No ulcerations or rashes, good skin turgor, no jaundice VASCULAR: Good capillary refill, neurovascular bundle appears to be intact Labs: Labs: Laboratory Tests Test 10/15/21 08:30 10/15/21 08:53 10/15/21 11:35 White Blood Count 5.0 x10^3/uL (4.0-11.0) Red Blood Count 2.98 x10^6/uL (4.30-5.70) Hemoglobin 8.1 g/dL (13.0-17.5) Hematocrit 25.8 % (39.0-53.0) Mean Corpuscular Volume 87 fL (79-100) Mean Corpuscular Hemoglobin 27 pg (25-35) Mean Corpuscular Hemoglobin Concent 32 g/dL (31-37) Red Cell Distribution Width 15.3 % (11.5-14.5) Platelet Count 243 x10^3/uL (140-400) Neutrophils (%) (Auto) 65 % (31-73) Lymphocytes (%) (Auto) 22 % (24-48) Monocytes (%) (Auto) 8 % (0-9) Eosinophils (%) (Auto) 4 % (0-3) Basophils (%) (Auto) 1 % (0-3) Neutrophils # (Auto) 3.3 x10^3/uL (1.8-7.7) Lymphocytes # (Auto) 1.1 x10^3/uL (1.0-4.8) Monocytes # (Auto) 0.4 x10^3/uL (0.0-1.1) Eosinophils # (Auto) 0.2 x10^3/uL (0.0-0.7) Basophils # (Auto) 0.1 x10^3/uL (0.0-0.2) Sodium Level 136 mmol/L (136-145) Potassium Level 4.8 mmol/L (3.5-5.1) Chloride Level 105 mmol/L (98-107) Carbon Dioxide Level 24 mmol/L (21-32) Anion Gap 7 (6-14) Blood Urea Nitrogen 35 mg/dL (8-26) Creatinine 2.6 mg/dL (0.7-1.3) Estimated GFR (Cockcroft-Gault) 30.9 BUN/Creatinine Ratio 13 (6-20) Glucose Level 323 mg/dL (70-99) Calcium Level 8.0 mg/dL (8.5-10.1) Magnesium Level 1.4 mg/dL (1.8-2.4) Total Bilirubin 0.2 mg/dL (0.2-1.0) Aspartate Amino Transf (AST/SGOT) 9 U/L (15-37) Alanine Aminotransferase (ALT/SGPT) 15 U/L (16-63) Alkaline Phosphatase 99 U/L (46-116) Troponin I High Sensitivity 48 ng/L (4-75) 55 ng/L (4-75) AM-Eyw-Q-Type Natriuretic Peptide 1185 pg/mL (0-124) Total Protein 7.2 g/dL (6.4-8.2) Albumin 3.0 g/dL (3.4-5.0) Albumin/Globulin Ratio 0.7 (1.0-1.7) Ethyl Alcohol Level < 10 mg/dL (0-10) Urine Collection Type Unknown Urine Color Yellow Urine Clarity Clear Urine pH 5.5 (<5.0-8.0) Urine Specific Patterson 1.015 (1.000-1.030) Urine Protein 100 mg/dL (NEG-TRACE) Urine Glucose (UA) 500 mg/dL (NEG) Urine Ketones (Stick) Negative mg/dL (NEG) Urine Blood Negative (NEG) Urine Nitrite Negative (NEG) Urine Bilirubin Negative (NEG) Urine Urobilinogen Dipstick 0.2 mg/dL (0.2 mg/dL) Urine Leukocyte Esterase Negative (NEG) Urine RBC 0 /HPF (0-2) Urine WBC 0 /HPF (0-4) Urine Squamous Epithelial Cells Few /LPF Urine Bacteria 0 /HPF (0-FEW) Urine Opiates Screen Neg (NEG) Urine Methadone Screen Neg (NEG) Urine Barbiturates Neg (NEG) Urine Phencyclidine Screen Neg (NEG) Urine Amphetamine/Methamphetamine Neg (NEG) Urine Benzodiazepines Screen Neg (NEG) Urine Cocaine Screen Pos (NEG) Urine Cannabinoids Screen Neg (NEG) Urine Ethyl Alcohol Neg (NEG) Laboratory Tests Test 10/15/21 08:30 10/15/21 08:53 10/15/21 11:35 White Blood Count 5.0 x10^3/uL (4.0-11.0) Red Blood Count 2.98 x10^6/uL (4.30-5.70) Hemoglobin 8.1 g/dL (13.0-17.5) Hematocrit 25.8 % (39.0-53.0) Mean Corpuscular Volume 87 fL (79-100) Mean Corpuscular Hemoglobin 27 pg (25-35) Mean Corpuscular Hemoglobin Concent 32 g/dL (31-37) Red Cell Distribution Width 15.3 % (11.5-14.5) Platelet Count 243 x10^3/uL (140-400) Neutrophils (%) (Auto) 65 % (31-73) Lymphocytes (%) (Auto) 22 % (24-48) Monocytes (%) (Auto) 8 % (0-9) Eosinophils (%) (Auto) 4 % (0-3) Basophils (%) (Auto) 1 % (0-3) Neutrophils # (Auto) 3.3 x10^3/uL (1.8-7.7) Lymphocytes # (Auto) 1.1 x10^3/uL (1.0-4.8) Monocytes # (Auto) 0.4 x10^3/uL (0.0-1.1) Eosinophils # (Auto) 0.2 x10^3/uL (0.0-0.7) Basophils # (Auto) 0.1 x10^3/uL (0.0-0.2) Sodium Level 136 mmol/L (136-145) Potassium Level 4.8 mmol/L (3.5-5.1) Chloride Level 105 mmol/L (98-107) Carbon Dioxide Level 24 mmol/L (21-32) Anion Gap 7 (6-14) Blood Urea Nitrogen 35 mg/dL (8-26) Creatinine 2.6 mg/dL (0.7-1.3) Estimated GFR (Cockcroft-Gault) 30.9 BUN/Creatinine Ratio 13 (6-20) Glucose Level 323 mg/dL (70-99) Calcium Level 8.0 mg/dL (8.5-10.1) Magnesium Level 1.4 mg/dL (1.8-2.4) Total Bilirubin 0.2 mg/dL (0.2-1.0) Aspartate Amino Transf (AST/SGOT) 9 U/L (15-37) Alanine Aminotransferase (ALT/SGPT) 15 U/L (16-63) Alkaline Phosphatase 99 U/L (46-116) Troponin I High Sensitivity 48 ng/L (4-75) 55 ng/L (4-75) QH-Jzi-U-Type Natriuretic Peptide 1185 pg/mL (0-124) Total Protein 7.2 g/dL (6.4-8.2) Albumin 3.0 g/dL (3.4-5.0) Albumin/Globulin Ratio 0.7 (1.0-1.7) Ethyl Alcohol Level < 10 mg/dL (0-10) Urine Collection Type Unknown Urine Color Yellow Urine Clarity Clear Urine pH 5.5 (<5.0-8.0) Urine Specific Patterson 1.015 (1.000-1.030) Urine Protein 100 mg/dL (NEG-TRACE) Urine Glucose (UA) 500 mg/dL (NEG) Urine Ketones (Stick) Negative mg/dL (NEG) Urine Blood Negative (NEG) Urine Nitrite Negative (NEG) Urine Bilirubin Negative (NEG) Urine Urobilinogen Dipstick 0.2 mg/dL (0.2 mg/dL) Urine Leukocyte Esterase Negative (NEG) Urine RBC 0 /HPF (0-2) Urine WBC 0 /HPF (0-4) Urine Squamous Epithelial Cells Few /LPF Urine Bacteria 0 /HPF (0-FEW) Urine Opiates Screen Neg (NEG) Urine Methadone Screen Neg (NEG) Urine Barbiturates Neg (NEG) Urine Phencyclidine Screen Neg (NEG) Urine Amphetamine/Methamphetamine Neg (NEG) Urine Benzodiazepines Screen Neg (NEG) Urine Cocaine Screen Pos (NEG) Urine Cannabinoids Screen Neg (NEG) Urine Ethyl Alcohol Neg (NEG) Assessment/Plan Assessment/Plan Chest pain shortness of breath secondary to acute on chronic heart failure, c ardiomyopathy, polysubstance abuse with cocaine. History CKD 4 diabetes hypertension hyperlipidemia -Presenting with chest pain that awoke him from sleep. Chest pain improved in the emergency room. Troponins pretty stable 40-50. -Cardiology consult. Resume home medical therapy. Cardiology recommended echo ordered -History of CKD 4 baseline creatinine around 2.5. He is at baseline but will request nephrology to consult -Bilateral flank pain pretty nonspecific. Will check renal ultrasound. Also try lidocaine patch for any muscular involvement -DVT prophylaxis -Cardiac diabetic diet -Sliding scale insulin for now. Sugars are normal right now we will hold off on any further fast acting or Lantus -Home meds resumed as indicated -Discussed with bedside RN Justifications for Admission Other Justification Acute respiratory failure with hypoxia, acute diastolic CHF exacerbation, right breast mass CASTILLO LOPEZ MD Oct 15, 2021 13:43
--- NOTE | 2021-10-15 13:54 | CONS ---
DATE OF CONSULTATION: 10/15/2021 REASON FOR CONSULTATION: Chest pain and heart failure. HISTORY OF PRESENT ILLNESS: The patient is a 56-year-old man with unfortunate prior history of multiple admissions for cardiomyopathy and substance abuse, who returns for the same. He was seen in the ER earlier today for complaints of shortness of breath and chest discomfort. His drug screen was positive for cocaine. The patient is currently somnolent, but denies any obvious dyspnea. He has been having chest pain for several months according to him. He has also been drinking alcohol and using cocaine as noted. PAST MEDICAL HISTORY: 1. Coronary artery disease, moderate in nature without prior intervention. 2. Peripheral arterial disease. 3. Polysubstance disease. 4. History of cardiomyopathy, presumably diastolic heart failure. 5. Dyslipidemia. 6. Chronic kidney disease. ALLERGIES: SULFA. CURRENT CARDIOVASCULAR MEDICATIONS: Atorvastatin, losartan, metolazone, Imdur, Plavix, Bumex, aspirin, amlodipine. REVIEW OF SYSTEMS: Unable to be obtained due to the patient's somnolence. PHYSICAL EXAMINATION: VITAL SIGNS: Afebrile, blood pressure 184/78. GENERAL: He is somnolent, but arousable. HEAD AND NECK: Unremarkable. CARDIAC: Regular rate and rhythm without any obvious murmurs, rubs or gallops. LUNGS: Notable for decreased breath sounds at the bases. ABDOMEN: Soft, nontender, but obese. SKIN: Without any rashes. EXTREMITIES: 1+ pitting edema. NEUROLOGIC: No obvious focal deficits, although examination is limited due to the patient's sleepiness. DIAGNOSTIC STUDIES: EKG demonstrates sinus rhythm with nonspecific ST-T wave changes. Labs were notable for positive cocaine. He has hemoglobin of 8.1. Creatinine is elevated at 2.6. Cardiac enzymes are negative x 2. BNP is elevated at 1185. IMPRESSION: 1. Acute on chronic decompensated diastolic heart failure. 2. Polysubstance abuse. 3. Hypertensive urgency. 4. Chronic kidney disease with acute kidney injury. RECOMMENDATIONS: 1. Agree with reinitiation of his medical therapy and monitoring of his blood pressure. It is unclear to me what the patient's compliance has been in the past. 2. We will obtain an echocardiogram for consideration to rule out any obvious cardiomyopathy. We will follow along closely. Supportive care. CARLTON/IRAIS DR: CARLTON/portia TID: [id number]
[2021-10-15] MEDS ORDERED: FUROSEMIDE 40 MG/4 ML VIAL. IVP ONE (14:00)
[2021-10-15 15:00] VITALS: BP 169/70
[2021-10-15] MEDS: MORPHINE SULFATE 4 MG/ML INJ. IVP PRN ×2 (15:09→19:36)
[2021-10-15 17:10] VITALS: BP 160/72
[2021-10-15] MEDS ORDERED: DEXTROSE 50% 25 GM / 50ML DISP.SYRIN. IV PRN (17:45)
[2021-10-15] MEDS ORDERED: LIDOCAINE (700MG/PATCH) PATCH. TD SCH (18:00)
[2021-10-15 19:34] VITALS: BP 134/65
--- NOTE | 2021-10-15 19:39 | NUR ---
1829 patient stated he usually takes 30 unit of Novalog with each meal (TID) and 70 units of Levemir at bedtime. Home meds read 30 units TID and 60 units of levemir at bedtime. These meds were held. Notified night nurse.
[2021-10-15] MEDS: LIDOCAINE (700MG/PATCH) PATCH. TD SCH (21:00)
--- NOTE | 2021-10-15 21:18 | RAD ---
US RENAL BILAT History: Reason: ckd4; reports flank pain / Spl. Instructions: / History: Comparison: CT October 29, 2020 Procedure: Transabdominal ultrasound images are obtained of the kidneys and bladder. Findings: Right kidney: measures 10.0 x 5.6 x 4.8 cm. Increased renal cortical echotexture. No hydronephrosis. Left kidney: measures 10.9 x 6.7 x 5.4 cm. Increased renal cortical echotexture. No hydronephrosis. Urinary bladder: Decompressed urinary bladder. Aorta and IVC not well seen due to overlying structures. IMPRESSION: 1. Increased bilateral renal cortical echotexture, may indicate medical renal disease. Electronically signed by: David Carlton DO (10/15/2021 9:16 PM) [facility]
[2021-10-15] MEDS: ATORVASTATIN CALCIUM 40 MG TABLET. PO SCH (21:49)
[2021-10-15] MEDS: AMITRIPTYLINE HCL 25 MG TABLET. PO SCH (21:49)
[2021-10-15 22:37] VITALS: BP 149/52
[2021-10-16] MEDS: MORPHINE SULFATE 4 MG/ML INJ. IVP PRN ×2 (01:05→08:09)
[2021-10-16 02:43] VITALS: BP 158/44
[2021-10-16 07:25] VITALS: BP 185/71
[2021-10-16] MEDS: ISOSORBIDE MONONITRATE ER 30 MG TAB.ER.24H PO SCH (08:10)
[2021-10-16] MEDS: BUMETANIDE 1 MG TABLET. PO SCH ×2 (08:10→15:28)
[2021-10-16] MEDS: PANTOPRAZOLE 40 MG TABLET.DR. PO SCH ×2 (08:10→15:28)
[2021-10-16] MEDS: CLOPIDOGREL BISULFATE 75 MG TABLET PO SCH (08:10)
[2021-10-16] MEDS: metOLazone 2.5 MG TABLET PO SCH (08:10)
[2021-10-16] MEDS: TAMSULOSIN 0.4 MG CAP.ER.24H. PO SCH (08:10)
[2021-10-16] MEDS: LOSARTAN POTASSIUM 50 MG TABLET. PO SCH (08:10)
[2021-10-16] MEDS: ASPIRIN CHEWABLE 81 MG TABLET. PO SCH (08:10)
[2021-10-16] MEDS: INSULIN LISPRO 300 UNITS/3 ML VIAL. SQ SCH ×3 (08:17→16:50)
[2021-10-16] MEDS: PATCH REMOVAL. MC SCH (09:00)
--- NOTE | 2021-10-16 10:23 | NUR ---
SS following for discharge planning. SS reviewed pt chart and discussed with pt RN. Pt is from home and is currently on room air. Cardiology and Nephrology consulted. ECHO ordered. Cocaine positive. Discharge plan is currently to home when medically ready for discharge. SS will continue to follow for discharge planning.
[2021-10-16 10:47] VITALS: BP 119/69
--- NOTE | 2021-10-16 10:48 | PDOC ---
[employer] PROGRESS NOTE Date of Service DOS: DATE: 10/16/21 TIME: 10:25 Chief Complaint Chief Complaint A/P: Chest pain Right flank pain Bilateral toe pain Coronary artery disease, moderate in nature without prior intervention. Peripheral arterial disease. Polysubstance use disorder History of cardiomyopathy, presumably diastolic heart failure. Dyslipidemia. Chronic kidney disease. History of Present Illness History of Present Illness Mr Moran is a 56-year-old male with CAD, cardiomyopathy likely due to cocaine abuse, PAD, HLD, CKD who comes to ED c/o chest pain. UDS positive for cocaine. [facility]. Has had intermittent chest pain for the past 2 months and has been sharp. Did remit with nitroglycerin. He notes he did use cocaine on 10/12/2021. 10/16: HS troponin 49. Still some sharp left-sided chest pain and right flank pain, bilateral toe pain. No shortness of breath. Vitals/I&O Vitals/I&O: Vital Signs Date Time Temp Pulse Resp B/P (MAP) Pulse Ox O2 Delivery O2 Flow Rate FiO2 10/16/21 09:17 96 Room Air 96.0 10/16/21 08:11 84 185/71 10/16/21 07:25 97.8 18 97.8 I & O 10/15/21 10/15/21 10/16/21 15:00 23:00 07:00 Intake Total 740 ml Output Total 2000 ml 550 ml Balance -2000 ml 190 ml Physical Exam Lungs: Clear, Wheezing, Crackles Labs Labs: Laboratory Tests Test 10/15/21 11:35 10/15/21 14:55 10/15/21 16:23 10/15/21 21:11 Troponin I High Sensitivity 55 ng/L (4-75) 49 ng/L (4-75) Glucose (Fingerstick) 123 mg/dL (70-99) 210 mg/dL (70-99) Test 10/16/21 07:24 Glucose (Fingerstick) 275 mg/dL (70-99) Assessment and Plan Assessmemt and Plan Problems Medical Problems: (1) Chest pain Status: Acute (2) CHF (congestive heart failure) Status: Acute (3) Chronic kidney disease Status: Acute (4) Cocaine use Status: Acute (5) Diabetes mellitus Status: Acute Comment Review of Relevant I have reviewed the following items karissa (where applicable) has been applied. Medications: Current Medications Medications (Trade) Dose Ordered Sig/Kiera Route PRN Reason Start Time Stop Time Status Last Admin Dose Admin Amitriptyline HCl (Elavil) 25 mg HS PO 10/15/21 21:00 10/15/21 21:49 Amlodipine Besylate (Norvasc) 10 mg DAILY PO 10/15/21 11:00 10/16/21 08:11 Aspirin (Aspirin Chewable) 81 mg DAILYWBKFT PO 10/15/21 11:00 10/16/21 08:10 Atorvastatin Calcium (Lipitor) 80 mg QHS PO 10/15/21 21:00 10/15/21 21:49 Bumetanide (Bumex) 1 mg BID94 PO 10/15/21 11:00 10/16/21 08:10 Clopidogrel Bisulfate (Plavix) 75 mg DAILY PO 10/15/21 11:00 10/16/21 08:10 Isosorbide Mononitrate (Imdur) 60 mg DAILY PO 10/15/21 11:00 10/16/21 08:10 Metolazone (Zaroxolyn) 2.5 mg DAILY PO 10/15/21 11:00 10/16/21 08:10 Pantoprazole Sodium (Protonix) 40 mg BIDAC PO 10/15/21 11:30 10/16/21 08:10 Tamsulosin HCl (Flomax) 0.4 mg DAILY PO 10/15/21 11:00 10/16/21 08:10 Losartan Potassium (Cozaar) 100 mg DAILY PO 10/15/21 11:00 10/16/21 08:10 Furosemide (Lasix) 40 mg 1X ONCE IVP 10/15/21 14:00 10/15/21 14:01 DC 10/15/21 14:00 Insulin Human Lispro (HumaLOG) 0-7 UNITS TIDWMEALS SQ 10/16/21 08:00 10/16/21 08:17 Lidocaine (Lidoderm) 1 patch DAILY TD 10/15/21 18:00 10/15/21 20:50 DC 10/15/21 18:41 Lidocaine (Lidoderm) 1 patch QHS TD 10/15/21 21:00 10/15/21 21:00 Justifications for Admission Other Justification Acute respiratory failure with hypoxia, acute diastolic CHF exacerbation, right breast mass CASTILLO NICK MD Oct 16, 2021 10:48
--- NOTE | 2021-10-16 12:25 | PDOC2 ---
CONSULT Date of Consult Date of Consult DATE: 10/16/21 TIME: 12:19 Reason for Consult Reason for Consult: RENAL FAILURE Referring Physician Referring Physician: JOHN Identification/Chief Complaint Chief Complaint CHEST PAIN Source Source: Chart review, Patient History of Present Illness Reason for Visit: THIS IS A 56 YR OLD WITH CHEST PAIN. ADMITTED WITH VERY HIGH BLOOD PRESSURE AND CONCERNS OF AMI. UDS NOTABLE FOR COCAINE. CARDIOLOGY EVALUATION ONGOING. CR OF 2.6. HE HAS STAGE 4 CKD DUE TO HIS HTN AND DM II. HAS BEEN SEEING MY PARTNER DR MCDONADL IN THE OFFICE. ALSO NOTED TO HAVE ANEMIA WITH HGB OF 8.0. NOT ON OP REG. NO HX OF ANY KIDNEY OR BLADDER SURGERIES HEMATURIA DYSURIA OR FREQUENCY NOTED. NO OTHER HX. NO DIFFICULTY WITH EMPTYING HIS BLADDER Past Medical History Cardiovascular: AFIB, CHF, HTN, Hyperlipidemia, Other Pulmonary: COPD, Pneumonia, Other CENTRAL NERVOUS SYSTEM: CVA, Periperal neuropathy GI: GERD, Other Psych: Addictions Musculoskeletal: Other Renal/: Chronic renal insuff, Benign prostatic enlarg. Endocrine: Diabetes Past Surgical History Past Surgical History: Cholecystectomy, Hernia Repair, Other Family History Family History: Hypertension Social History <1 pack per day ALCOHOL: occassional Drugs: Cocaine Lives: with Family Current Problem List Problem List Problems Medical Problems: (1) Chest pain Status: Acute (2) CHF (congestive heart failure) Status: Acute (3) Chronic kidney disease Status: Acute (4) Cocaine use Status: Acute (5) Diabetes mellitus Status: Acute Current Medications Current Medications Current Medications Aspirin (Aspirin Chewable) 324 mg 1X ONCE PO Last administered on 10/15/21at 07:39; Start 10/15/21 at 07:30; Stop 10/15/21 at 07:31; Status DC Nitroglycerin (Nitrostat) 0.4 mg PRN Q5MIN PRN SL CHEST PAIN Last administered on 10/15/21at 07:46; Start 10/15/21 at 07:00; Stop 10/15/21 at 17:55; Status DC Acetaminophen (Tylenol) 1,000 mg 1X ONCE PO Last administered on 10/15/21at 08:06; Start 10/15/21 at 08:00; Stop 10/15/21 at 08:01; Status DC Lorazepam (Ativan Inj) 1 mg 1X ONCE IVP Last administered on 10/15/21at 08:04; Start 10/15/21 at 08:00; Stop 10/15/21 at 08:01; Status DC Lorazepam (Ativan Inj) 2 mg STK-MED ONCE .ROUTE ; Start 10/15/21 at 08:00; Stop 10/15/21 at 08:00; Status DC Acetaminophen (Tylenol) 650 mg PRN Q4HRS PRN PO pain or fever; Start 10/15/21 at 09:45 Morphine Sulfate (Morphine Sulfate) 4 mg PRN Q4HRS PRN IVP chest pain Last administered on 10/16/21at 08:09; Start 10/15/21 at 09:45 Amitriptyline HCl (Elavil) 25 mg HS PO Last administered on 10/15/21at 21:49; S tart 10/15/21 at 21:00 Amlodipine Besylate (Norvasc) 10 mg DAILY PO Last administered on 10/16/21at 08:11; Start 10/15/21 at 11:00 Aspirin (Aspirin Chewable) 81 mg DAILYWBKFT PO Last administered on 10/16/21at 08:10; Start 10/15/21 at 11:00 Atorvastatin Calcium (Lipitor) 80 mg QHS PO Last administered on 10/15/21at 21:49; Start 10/15/21 at 21:00 Bumetanide (Bumex) 1 mg BID94 PO Last administered on 10/16/21at 08:10; Start 10/15/21 at 11:00 Clopidogrel Bisulfate (Plavix) 75 mg DAILY PO Last administered on 10/16/21at 08:10; Start 10/15/21 at 11:00 Isosorbide Mononitrate (Imdur) 60 mg DAILY PO Last administered on 10/16/21at 08:10; Start 10/15/21 at 11:00 Metolazone (Zaroxolyn) 2.5 mg DAILY PO Last administered on 10/16/21at 08:10; Start 10/15/21 at 11:00 Nitroglycerin (Nitrostat) 0.4 mg PRN Q5MIN PRN SL CHEST PAIN; Start 10/15/21 at 10:30 Pantoprazole Sodium (Protonix) 40 mg BIDAC PO Last administered on 10/16/21at 08:10; Start 10/15/21 at 11:30 Senna/Docusate Sodium (Senna Plus) 2 tab PRN QEVNG PRN PO CONSTIPATION; Start 10/15/21 at 10:30 Tamsulosin HCl (Flomax) 0.4 mg DAILY PO Last administered on 10/16/21at 08:10; Start 10/15/21 at 11:00 Losartan Potassium (Cozaar) 100 mg DAILY PO Last administered on 10/16/21at 08:10; Start 10/15/21 at 11:00 Furosemide (Lasix) 40 mg 1X ONCE IVP Last administered on 10/15/21at 14:00; Start 10/15/21 at 14:00; Stop 10/15/21 at 14:01; Status DC Insulin Human Lispro (HumaLOG) 0-7 UNITS TIDWMEALS SQ Last administered on 10/16/21at 11:43; Start 10/16/21 at 08:00 Dextrose (Dextrose 50%-Water Syringe) 12.5 gm PRN Q15MIN PRN IV SEE COMMENTS; Start 10/15/21 at 17:45 Lidocaine (Lidoderm) 1 patch DAILY TD Last administered on 10/15/21at 18:41; Start 10/15/21 at 18:00; Stop 10/15/21 at 20:50; Status DC Miscellaneous (Lidoderm Patch Removal) 1 ea DAILY MC ; Start 10/16/21 at 09:00 Lidocaine (Lidoderm) 1 patch QHS TD Last administered on 10/15/21at 21:00; Start 10/15/21 at 21:00 Active Scripts Active Admelog (Insulin Lispro) 100 Unit/1 Ml Vial 0 Units SQ TIDWMEALS 14 Days Acetaminophen 325 Mg Tablet 650 Mg PO PRN Q6HRS PRN 30 Days Hydrocodone-Apap 5-325 (Hydrocodone Bit/Acetaminophen) 1 Tab Tablet 1 Tab PO PRN Q6HRS PRN Atorvastatin Calcium 40 Mg Tablet 80 Mg PO QHS Amlodipine Besylate 10 Mg Tablet 10 Mg PO DAILY Nitrostat (Nitroglycerin) 0.4 Mg Tab.subl 0.4 Mg SL PRN Q5MIN PRN Isosorbide Mononitrate Er (Isosorbide Mononitrate) 30 Mg Tab.er.24h 60 Mg PO DAILY Metolazone 2.5 Mg Tablet 2.5 Mg PO DAILY 30 Days Bumetanide 1 Mg Tablet 1 Mg PO BID94 30 Days Flomax (Tamsulosin Hcl) 0.4 Mg Cap.er.24h 0.4 Mg PO DAILY Children's Aspirin (Aspirin) 81 Mg Tab.chew 81 Mg PO DAILYWBKFT Reported Vitamin D3 (Vitamin D) 25 Mcg Tablet 25 Mcg PO DAILY 1,000 UNITS = 25 MCG Amitriptyline Hcl 25 Mg Tablet 25 Mg PO HS Jardiance (Empagliflozin) 10 Mg Tablet 10 Mg PO DAILY Losartan Potassium 100 Mg Tablet 100 Mg PO DAILY Senna-Docusate Sodium Tablet (Sennosides/Docusate Sodium) 1 Each Tablet 2 Tab PO PRN QEVNG PRN 5 Days Clopidogrel (Clopidogrel Bisulfate) 75 Mg Tablet 75 Mg PO DAILY Gabapentin 600 Mg Tablet 300 Mg PO TID Protonix (Pantoprazole Sodium) 40 Mg Tablet.dr 40 Mg PO BID Hydralazine Hcl 100 Mg Tablet 100 Mg PO TID Levemir Flexpen (Insulin Detemir) 100 Unit/1 Ml Insuln.pen 60 Unit SQ HS Novolog Flexpen (Insulin Aspart) 100 Unit/1 Ml Insuln.pen 30 Unit SQ TIDAC Allergies Allergies: Coded Allergies: Sulfa (Sulfonamide Antibiotics) (Verified Allergy, Intermediate, Rash, 05/31/21) ROS General: YES: Fatigue, Malaise, Appetite PSYCHOLOGICAL ROS: YES: Anxiety Eyes: Yes Decreased vision HEENT: YES: Heacaches Respiratory: YES: Cough, Shortness of breath Cardiovascular: yes Edema Gastrointestinal: Yes Constipation Genitourinary: YES Other (NOCTURIA) Musculoskeletal: Yes Muscular Weakness Neurological: Yes Weakness Skin: Yes Dry Skin Physical Exam General: Alert, Oriented X3, Cooperative, No acute distress HEENT: Atraumatic Lungs: Clear to auscultation Heart: Regular rate Abdomen: Normal bowel sounds, Soft, No tenderness Extremities: No cyanosis Skin: No breakdown Neuro: Normal speech, Sensation intact Psych/Mental Status: Mental status NL, Mood NL MUSCULOSKELETAL: No joint tenderness, No deformity, No swelling Vitals VITALS Vital Signs Date Time Temp Pulse Resp B/P (MAP) Pulse Ox O2 Delivery O2 Flow Rate FiO2 10/16/21 10:47 97.9 79 18 119/69 (86) 91 Room Air 97.9 10/16/21 09:17 96.0 Labs Labs Laboratory Tests Test 10/15/21 08:30 10/15/21 08:53 10/15/21 11:35 10/15/21 14:55 White Blood Count 5.0 x10^3/uL (4.0-11.0) Red Blood Count 2.98 x10^6/uL (4.30-5.70) Hemoglobin 8.1 g/dL (13.0-17.5) Hematocrit 25.8 % (39.0-53.0) Mean Corpuscular Volume 87 fL (79-100) Mean Corpuscular Hemoglobin 27 pg (25-35) Mean Corpuscular Hemoglobin Concent 32 g/dL (31-37) Red Cell Distribution Width 15.3 % (11.5-14.5) Platelet Count 243 x10^3/uL (140-400) Neutrophils (%) (Auto) 65 % (31-73) Lymphocytes (%) (Auto) 22 % (24-48) Monocytes (%) (Auto) 8 % (0-9) Eosinophils (%) (Auto) 4 % (0-3) Basophils (%) (Auto) 1 % (0-3) Neutrophils # (Auto) 3.3 x10^3/uL (1.8-7.7) Lymphocytes # (Auto) 1.1 x10^3/uL (1.0-4.8) Monocytes # (Auto) 0.4 x10^3/uL (0.0-1.1) Eosinophils # (Auto) 0.2 x10^3/uL (0.0-0.7) Basophils # (Auto) 0.1 x10^3/uL (0.0-0.2) Sodium Level 136 mmol/L (136-145) Potassium Level 4.8 mmol/L (3.5-5.1) Chloride Level 105 mmol/L (98-107) Carbon Dioxide Level 24 mmol/L (21-32) Anion Gap 7 (6-14) Blood Urea Nitrogen 35 mg/dL (8-26) Creatinine 2.6 mg/dL (0.7-1.3) Estimated GFR (Cockcroft-Gault) 30.9 BUN/Creatinine Ratio 13 (6-20) Glucose Level 323 mg/dL (70-99) Calcium Level 8.0 mg/dL (8.5-10.1) Magnesium Level 1.4 mg/dL (1.8-2.4) Total Bilirubin 0.2 mg/dL (0.2-1.0) Aspartate Amino Transf (AST/SGOT) 9 U/L (15-37) Alanine Aminotransferase (ALT/SGPT) 15 U/L (16-63) Alkaline Phosphatase 99 U/L (46-116) Troponin I High Sensitivity 48 ng/L (4-75) 55 ng/L (4-75) 49 ng/L (4-75) WC-Wfx-T-Type Natriuretic Peptide 1185 pg/mL (0-124) Total Protein 7.2 g/dL (6.4-8.2) Albumin 3.0 g/dL (3.4-5.0) Albumin/Globulin Ratio 0.7 (1.0-1.7) Ethyl Alcohol Level < 10 mg/dL (0-10) Urine Collection Type Unknown Urine Color Yellow Urine Clarity Clear Urine pH 5.5 (<5.0-8.0) Urine Specific Hudson 1.015 (1.000-1.030) Urine Protein 100 mg/dL (NEG-TRACE) Urine Glucose (UA) 500 mg/dL (NEG) Urine Ketones (Stick) Negative mg/dL (NEG) Urine Blood Negative (NEG) Urine Nitrite Negative (NEG) Urine Bilirubin Negative (NEG) Urine Urobilinogen Dipstick 0.2 mg/dL (0.2 mg/dL) Urine Leukocyte Esterase Negative (NEG) Urine RBC 0 /HPF (0-2) Urine WBC 0 /HPF (0-4) Urine Squamous Epithelial Cells Few /LPF Urine Bacteria 0 /HPF (0-FEW) Urine Opiates Screen Neg (NEG) Urine Methadone Screen Neg (NEG) Urine Barbiturates Neg (NEG) Urine Phencyclidine Screen Neg (NEG) Urine Amphetamine/Methamphetamine Neg (NEG) Urine Benzodiazepines Screen Neg (NEG) Urine Cocaine Screen Pos (NEG) Urine Cannabinoids Screen Neg (NEG) Urine Ethyl Alcohol Neg (NEG) Test 10/15/21 16:23 10/15/21 21:11 10/16/21 07:24 10/16/21 11:29 Glucose (Fingerstick) 123 mg/dL (70-99) 210 mg/dL (70-99) 275 mg/dL (70-99) 240 mg/dL (70-99) Laboratory Tests Test 10/15/21 14:55 10/15/21 16:23 10/15/21 21:11 10/16/21 07:24 Troponin I High Sensitivity 49 ng/L (4-75) Glucose (Fingerstick) 123 mg/dL (70-99) 210 mg/dL (70-99) 275 mg/dL (70-99) Test 10/16/21 11:29 Glucose (Fingerstick) 240 mg/dL (70-99) Assessment/Plan Assessment/Plan IMP CKD STAGE 4-CR AT BASELINE-CR STABLE AT 2.6 HYPOKALEMIA HYPOMAGNESEMIA NON COMPLIANCE CHEST PAIN CAD HX UNCONTROLLED HTN POLYSUBSTANCE DRUG ABUSE-COCAINE PLAN CONT SAME CONT WITH ARB AND DIURETICS CONT FLOMAX RESUME HOME MEDS ENC COMPLIANCE CARDIOLOGY EVALUATION REPLACE Al AND MAG WILL FOLLOW COREEN VERDE MD Oct 16, 2021 12:25
[2021-10-16 12:34] LABS: ALBUMIN 3.1 g/dL (3.4-5.0); ALBUMIN/GLOBULIN RATIO 0.7 (1.0-1.7); CALCIUM 7.9 mg/dL (8.5-10.1); CREATININE 2.4 mg/dL (0.7-1.3); GFR 33.9; POTASSIUM 4.3 mmol/L (3.5-5.1); TOTAL BILIRUBIN 0.3 mg/dL (0.2-1.0); TOTAL PROTEIN 7.7 g/dL (6.4-8.2)
[2021-10-16] MEDS ORDERED: POTASSIUM CHLORIDE 10 MEQ TABLET.ER. PO ONE (13:00)
[2021-10-16] MEDS ORDERED: MAGNESIUM SULFATE 1GM 100 ML IV ONE (13:00)
[2021-10-16 14:34] VITALS: BP 125/75
--- NOTE | 2021-10-16 16:20 | CARD ---
MR#: [id number] Date of Study: 10/16/2021 Ordering Physician: CASTILLO LOPEZ, Referring Physician: CASTILLO LOPEZ, Tech: Rajesh Chiu [facility] APPROVED REPORT EXAM: Two-dimensional and M-mode echocardiogram with Doppler and color Doppler. Other Information Quality : FairHR: 95bpm Rhythm : NSR INDICATION Congestive Heart Failure RISK FACTORS Hypertension Obesity 2D DIMENSIONS Left Atrium(2D)4.7 (1.6-4.0cm)IVSd1.9 (0.7-1.1cm) Aortic Root(2D)3.8 (2.0-3.7cm)LVDd4.7 (3.9-5.9cm) LVOT Diameter2.0 (1.8-2.4cm)PWd1.9 (0.7-1.1cm) LVDs2.4 (2.5-4.0cm)FS (%) 48.3 % SV80.5 mlLVEF(%)79.7 (>50%) Aortic Valve AoV Peak Dillon.146.7cm/sAoV VTI26.4cm AO Peak GR.8.6mmHgLVOT Peak Dillon.97.3cm/s LVOT VTI 19.16cmAO Mean GR.5mmHg CHAD (VMAX)1.39my5PRH (VTI)2.22cm2 Mitral Valve MV E Swkvvjvx738.4cm/sMV DECEL [id number] MV A Umtbkssv50.0cm/sMV [id number] E/A Ratio3.2MVA (PHT)7.54cm2 TDI E/Lateral E'20.0E/Medial E'20.0 Pulmonary Valve PV Peak Gygpoucz161.8cm/sPV Peak Grad.5mmHg Tricuspid Valve TR P. Izsknfqg635as/sTR Peak Gr.44mmHg Pulmonary Vein S1 Iinnscmj74.6cm/sD2 Unznzfbi07.9cm/s LEFT VENTRICLE The left ventricle is normal size. There is moderate to severe concentric left ventricular hypertroph y. The left ventricular systolic function is normal. The ejection fraction is 60-65%. There is normal LV segmental wall motion. Tissue Doppler imaging reveals moderate left ventricular diastolic dysfunc tion. No left ventricle thrombus noted on this study. There is no ventricular septal defect visualize d. There is no left ventricular aneurysm. There is no mass noted in the left ventricle. RIGHT VENTRICLE The right ventricle is normal size. There is normal right ventricular wall thickness. The right ventr icular systolic function is normal. ATRIA The left atrium is mildly dilated. The right atrium size is normal. The interatrial septum is intact with no evidence for an atrial septal defect or patent foramen ovale as noted on 2-D or Doppler imagi ng. AORTIC VALVE The aortic valve is normal in structure and function. Doppler and Color Flow revealed no significant aortic regurgitation. There is no significant aortic valvular stenosis. MITRAL VALVE The mitral valve is normal in structure and function. There is no evidence of mitral valve prolapse. There is no mitral valve stenosis. Doppler and Color-flow revealed mild mitral regurgitation. TRICUSPID VALVE The tricuspid valve is normal in structure and function. Doppler and Color Flow revealed mild tricusp id valve regurgitation noted. The pulmonary artery systolic pressure is estimated at 50 mmHg. There i s moderate pulmonary hypertension. There is no tricuspid valve prolapse or vegetation. There is no tr icuspid valve stenosis. PULMONIC VALVE The pulmonary valve is normal in structure and function. Doppler and Color Flow revealed no pulmonic valvular regurgitation. There is no pulmonic valvular stenosis. GREAT VESSELS The aortic root is normal in size. The ascending aorta is normal in size. The pulmonary artery is nor mal. The IVC is normal in size and collapses >50% with inspiration. PERICARDIAL EFFUSION There is no pleural effusion. There is no evidence of significant pericardial effusion. Critical Notification Critical Value: No <Conclusion> The left ventricular systolic function is normal. The ejection fraction is 60-65%. There is normal LV segmental wall motion. Moderate to severe concentric left ventricular hypertrophy. Tissue Doppler imaging reveals moderate left ventricular diastolic dysfunction. Mild mitral regurgitation. Mild tricuspid valve regurgitation noted. The pulmonary artery systolic pressure is estimated at 50 mmHg. There is no evidence of significant pericardial effusion. Signed by : Emiliano Long, Electronically Approved : 10/16/2021 16:20:28
--- NOTE | 2021-10-16 16:53 | PDOC ---
PROGRESS NOTES Date of Service DATE: 10/16/21 TIME: 16:50 Subjective Subjective Patient seen and examined Objective Objective Vital Signs Date Time Temp Pulse Resp B/P (MAP) Pulse Ox O2 Delivery O2 Flow Rate FiO2 10/16/21 14:34 98.0 82 18 125/75 (92) 94 Room Air 98.0 10/16/21 09:17 96.0 Intake and Output 10/16/21 07:00 Intake Total 740 ml Output Total 2550 ml Balance -1810 ml Intake Oral 740 ml Output Urine Total 2550 ml Physical Exam Abdomen: Normal bowel sounds Heart: Regular rate General: mild distress Lungs: Other (Decreased breath sounds) Assessment Assessment Problems Medical Problems: (1) Chest pain Status: Acute (2) CHF (congestive heart failure) Status: Acute (3) Chronic kidney disease Status: Acute (4) Cocaine use Status: Acute (5) Diabetes mellitus Status: Acute Acute on chronic diastolic heart failure. Diuresis with monitoring of kidney function. Renal evaluating. Echo shows LV ejection fraction of 60 to 65%. Patient has moderate to severe left ventricular hypertrophy with mild diastolic dysfunction. Mild mitral regurgitation and mild tricuspid regurgitation with a PAP of 55 mmHg. Ongoing polysubstance abuse. Hypertensive urgency. Improved today. Chronic kidney disease with acute kidney injury. Renal evaluation in progress Comment Review of Relevant I have reviewed the following items karissa (where applicable) has been applied. Labs Laboratory Tests Test 10/15/21 08:30 10/15/21 08:53 10/15/21 11:35 10/15/21 14:55 White Blood Count 5.0 x10^3/uL (4.0-11.0) Red Blood Count 2.98 x10^6/uL (4.30-5.70) Hemoglobin 8.1 g/dL (13.0-17.5) Hematocrit 25.8 % (39.0-53.0) Mean Corpuscular Volume 87 fL (79-100) Mean Corpuscular Hemoglobin 27 pg (25-35) Mean Corpuscular Hemoglobin Concent 32 g/dL (31-37) Red Cell Distribution Width 15.3 % (11.5-14.5) Platelet Count 243 x10^3/uL (140-400) Neutrophils (%) (Auto) 65 % (31-73) Lymphocytes (%) (Auto) 22 % (24-48) Monocytes (%) (Auto) 8 % (0-9) Eosinophils (%) (Auto) 4 % (0-3) Basophils (%) (Auto) 1 % (0-3) Neutrophils # (Auto) 3.3 x10^3/uL (1.8-7.7) Lymphocytes # (Auto) 1.1 x10^3/uL (1.0-4.8) Monocytes # (Auto) 0.4 x10^3/uL (0.0-1.1) Eosinophils # (Auto) 0.2 x10^3/uL (0.0-0.7) Basophils # (Auto) 0.1 x10^3/uL (0.0-0.2) Sodium Level 136 mmol/L (136-145) Potassium Level 4.8 mmol/L (3.5-5.1) Chloride Level 105 mmol/L (98-107) Carbon Dioxide Level 24 mmol/L (21-32) Anion Gap 7 (6-14) Blood Urea Nitrogen 35 mg/dL (8-26) Creatinine 2.6 mg/dL (0.7-1.3) Estimated GFR (Cockcroft-Gault) 30.9 BUN/Creatinine Ratio 13 (6-20) Glucose Level 323 mg/dL (70-99) Calcium Level 8.0 mg/dL (8.5-10.1) Magnesium Level 1.4 mg/dL (1.8-2.4) Total Bilirubin 0.2 mg/dL (0.2-1.0) Aspartate Amino Transf (AST/SGOT) 9 U/L (15-37) Alanine Aminotransferase (ALT/SGPT) 15 U/L (16-63) Alkaline Phosphatase 99 U/L (46-116) Troponin I High Sensitivity 48 ng/L (4-75) 55 ng/L (4-75) 49 ng/L (4-75) GL-Idk-P-Type Natriuretic Peptide 1185 pg/mL (0-124) Total Protein 7.2 g/dL (6.4-8.2) Albumin 3.0 g/dL (3.4-5.0) Albumin/Globulin Ratio 0.7 (1.0-1.7) Ethyl Alcohol Level < 10 mg/dL (0-10) Urine Collection Type Unknown Urine Color Yellow Urine Clarity Clear Urine pH 5.5 (<5.0-8.0) Urine Specific [place] 1.015 (1.000-1.030) Urine Protein 100 mg/dL (NEG-TRACE) Urine Glucose (UA) 500 mg/dL (NEG) Urine Ketones (Stick) Negative mg/dL (NEG) Urine Blood Negative (NEG) Urine Nitrite Negative (NEG) Urine Bilirubin Negative (NEG) Urine Urobilinogen Dipstick 0.2 mg/dL (0.2 mg/dL) Urine Leukocyte Esterase Negative (NEG) Urine RBC 0 /HPF (0-2) Urine WBC 0 /HPF (0-4) Urine Squamous Epithelial Cells Few /LPF Urine Bacteria 0 /HPF (0-FEW) Urine Opiates Screen Neg (NEG) Urine Methadone Screen Neg (NEG) Urine Barbiturates Neg (NEG) Urine Phencyclidine Screen Neg (NEG) Urine Amphetamine/Methamphetamine Neg (NEG) Urine Benzodiazepines Screen Neg (NEG) Urine Cocaine Screen Pos (NEG) Urine Cannabinoids Screen Neg (NEG) Urine Ethyl Alcohol Neg (NEG) Test 10/15/21 16:23 10/15/21 21:11 10/16/21 07:24 10/16/21 11:29 Glucose (Fingerstick) 123 mg/dL (70-99) 210 mg/dL (70-99) 275 mg/dL (70-99) 240 mg/dL (70-99) Test 10/16/21 12:15 10/16/21 16:34 Sodium Level 140 mmol/L (136-145) Potassium Level 4.3 mmol/L (3.5-5.1) Chloride Level 105 mmol/L (98-107) Carbon Dioxide Level 27 mmol/L (21-32) Anion Gap 8 (6-14) Blood Urea Nitrogen 33 mg/dL (8-26) Creatinine 2.4 mg/dL (0.7-1.3) Estimated GFR (Cockcroft-Gault) 33.9 BUN/Creatinine Ratio 14 (6-20) Glucose Level 263 mg/dL (70-99) Calcium Level 7.9 mg/dL (8.5-10.1) Total Bilirubin 0.3 mg/dL (0.2-1.0) Aspartate Amino Transf (AST/SGOT) 7 U/L (15-37) Alanine Aminotransferase (ALT/SGPT) 17 U/L (16-63) Alkaline Phosphatase 91 U/L (46-116) Total Protein 7.7 g/dL (6.4-8.2) Albumin 3.1 g/dL (3.4-5.0) Albumin/Globulin Ratio 0.7 (1.0-1.7) Glucose (Fingerstick) 328 mg/dL (70-99) Laboratory Tests Test 10/15/21 21:11 10/16/21 07:24 10/16/21 11:29 10/16/21 12:15 Glucose (Fingerstick) 210 mg/dL (70-99) 275 mg/dL (70-99) 240 mg/dL (70-99) Sodium Level 140 mmol/L (136-145) Potassium Level 4.3 mmol/L (3.5-5.1) Chloride Level 105 mmol/L (98-107) Carbon Dioxide Level 27 mmol/L (21-32) Anion Gap 8 (6-14) Blood Urea Nitrogen 33 mg/dL (8-26) Creatinine 2.4 mg/dL (0.7-1.3) Estimated GFR (Cockcroft-Gault) 33.9 BUN/Creatinine Ratio 14 (6-20) Glucose Level 263 mg/dL (70-99) Calcium Level 7.9 mg/dL (8.5-10.1) Total Bilirubin 0.3 mg/dL (0.2-1.0) Aspartate Amino Transf (AST/SGOT) 7 U/L (15-37) Alanine Aminotransferase (ALT/SGPT) 17 U/L (16-63) Alkaline Phosphatase 91 U/L (46-116) Total Protein 7.7 g/dL (6.4-8.2) Albumin 3.1 g/dL (3.4-5.0) Albumin/Globulin Ratio 0.7 (1.0-1.7) Test 10/16/21 16:34 Glucose (Fingerstick) 328 mg/dL (70-99) Medications Current Medications Aspirin (Aspirin Chewable) 324 mg 1X ONCE PO Last administered on 10/15/21at 07:39; Start 10/15/21 at 07:30; Stop 10/15/21 at 07:31; Status DC Nitroglycerin (Nitrostat) 0.4 mg PRN Q5MIN PRN SL CHEST PAIN Last administered on 10/15/21at 07:46; Start 10/15/21 at 07:00; Stop 10/15/21 at 17:55; Status DC Acetaminophen (Tylenol) 1,000 mg 1X ONCE PO Last administered on 10/15/21at 08 :06; Start 10/15/21 at 08:00; Stop 10/15/21 at 08:01; Status DC Lorazepam (Ativan Inj) 1 mg 1X ONCE IVP Last administered on 10/15/21at 08:04; Start 10/15/21 at 08:00; Stop 10/15/21 at 08:01; Status DC Lorazepam (Ativan Inj) 2 mg STK-MED ONCE .ROUTE ; Start 10/15/21 at 08:00; Stop 10/15/21 at 08:00; Status DC Acetaminophen (Tylenol) 650 mg PRN Q4HRS PRN PO pain or fever; Start 10/15/21 at 09:45 Morphine Sulfate (Morphine Sulfate) 4 mg PRN Q4HRS PRN IVP chest pain Last administered on 10/16/21at 08:09; Start 10/15/21 at 09:45 Amitriptyline HCl (Elavil) 25 mg HS PO Last administered on 10/15/21at 21:49; Start 10/15/21 at 21:00 Amlodipine Besylate (Norvasc) 10 mg DAILY PO Last administered on 10/16/21at 08:11; Start 10/15/21 at 11:00 Aspirin (Aspirin Chewable) 81 mg DAILYWBKFT PO Last administered on 10/16/21at 08:10; Start 10/15/21 at 11:00 Atorvastatin Calcium (Lipitor) 80 mg QHS PO Last administered on 10/15/21at 21:49; Start 10/15/21 at 21:00 Bumetanide (Bumex) 1 mg BID94 PO Last administered on 10/16/21 08:10; Start 10/15/21 at 11:00 Clopidogrel Bisulfate (Plavix) 75 mg DAILY PO Last administered on 10/16/21at 08:10; Start 10/15/21 at 11:00 Isosorbide Mononitrate (Imdur) 60 mg DAILY PO Last administered on 10/16/21at 08:10; Start 10/15/21 at 11:00 Metolazone (Zaroxolyn) 2.5 mg DAILY PO Last administered on 10/16/21at 08:10; Start 10/15/21 at 11:00 Nitroglycerin (Nitrostat) 0.4 mg PRN Q5MIN PRN SL CHEST PAIN; Start 10/15/21 at 10:30 Pantoprazole Sodium (Protonix) 40 mg BIDAC PO Last administered on 10/16/21at 08:10; Start 10/15/21 at 11:30 Senna/Docusate Sodium (Senna Plus) 2 tab PRN QEVNG PRN PO CONSTIPATION; Start 10/15/21 at 10:30 Tamsulosin HCl (Flomax) 0.4 mg DAILY PO Last administered on 10/16/21at 08:10; Start 10/15/21 at 11:00 Losartan Potassium (Cozaar) 100 mg DAILY PO Last administered on 10/16/21at 08:10; Start 10/15/21 at 11:00 Furosemide (Lasix) 40 mg 1X ONCE IVP Last administered on 10/15/21at 14:00; Start 10/15/21 at 14:00; Stop 10/15/21 at 14:01; Status DC Insulin Human Lispro (HumaLOG) 0-7 UNITS TIDWMEALS SQ Last administered on 10/16/21at 11:43; Start 10/16/21 at 08:00 Dextrose (Dextrose 50%-Water Syringe) 12.5 gm PRN Q15MIN PRN IV SEE COMMENTS; Start 10/15/21 at 17:45 Lidocaine (Lidoderm) 1 patch DAILY TD Last administered on 10/15/21at 18:41; Start 10/15/21 at 18:00; Stop 10/15/21 at 20:50; Status DC Miscellaneous (Lidoderm Patch Removal) 1 ea DAILY MC ; Start 10/16/21 at 09:00 Lidocaine (Lidoderm) 1 patch QHS TD Last administered on 10/15/21at 21:00; Start 10/15/21 at 21:00 Potassium Chloride (Klor-Con) 10 meq 1X ONCE PO Last administered on 10/16/21at 12:52; Start 10/16/21 at 13:00; Stop 10/16/21 at 13:01; Status DC Magnesium Sulfate/ Dextrose 100 ml @ 100 mls/hr 1X ONCE IV Last administered on 10/16/21at 12:53; Start 10/16/21 at 13:00; Stop 10/16/21 at 13:59; Status DC Active Scripts Active Admelog (Insulin Lispro) 100 Unit/1 Ml Vial 0 Units SQ TIDWMEALS 14 Days Acetaminophen 325 Mg Tablet 650 Mg PO PRN Q6HRS PRN 30 Days Hydrocodone-Apap 5-325 (Hydrocodone Bit/Acetaminophen) 1 Tab Tablet 1 Tab PO PRN Q6HRS PRN Atorvastatin Calcium 40 Mg Tablet 80 Mg PO QHS Amlodipine Besylate 10 Mg Tablet 10 Mg PO DAILY Nitrostat (Nitroglycerin) 0.4 Mg Tab.subl 0.4 Mg SL PRN Q5MIN PRN Isosorbide Mononitrate Er (Isosorbide Mononitrate) 30 Mg Tab.er.24h 60 Mg PO DAILY Metolazone 2.5 Mg Tablet 2.5 Mg PO DAILY 30 Days Bumetanide 1 Mg Tablet 1 Mg PO BID94 30 Days Flomax (Tamsulosin Hcl) 0.4 Mg Cap.er.24h 0.4 Mg PO DAILY Children's Aspirin (Aspirin) 81 Mg Tab.chew 81 Mg PO DAILYWBKFT Reported Vitamin D3 (Vitamin D) 25 Mcg Tablet 25 Mcg PO DAILY 1,000 UNITS = 25 MCG Amitriptyline Hcl 25 Mg Tablet 25 Mg PO HS Jardiance (Empagliflozin) 10 Mg Tablet 10 Mg PO DAILY Losartan Potassium 100 Mg Tablet 100 Mg PO DAILY Senna-Docusate Sodium Tablet (Sennosides/Docusate Sodium) 1 Each Tablet 2 Tab PO PRN QEVNG PRN 5 Days Clopidogrel (Clopidogrel Bisulfate) 75 Mg Tablet 75 Mg PO DAILY Gabapentin 600 Mg Tablet 300 Mg PO TID Protonix (Pantoprazole Sodium) 40 Mg Tablet.dr 40 Mg PO BID Hydralazine Hcl 100 Mg Tablet 100 Mg PO TID Levemir Flexpen (Insulin Detemir) 100 Unit/1 Ml Insuln.pen 60 Unit SQ HS Novolog Flexpen (Insulin Aspart) 100 Unit/1 Ml Insuln.pen 30 Unit SQ TIDAC Vitals/I & O Vital Sign - Last 24 Hours 10/15/21 10/15/21 10/15/21 10/15/21 17:10 17:10 19:34 19:36 Temp 97.9 98.1 97.9 98.1 Pulse 83 85 Resp 18 18 B/P (MAP) 160/72 (101) 134/65 (88) Pulse Ox 97 O2 Delivery Room Air Room Air Room Air Room Air O2 Flow Rate 96.0 10/15/21 10/15/21 10/16/21 10/16/21 20:00 22:37 01:05 02:43 Temp 97.8 98.0 97.8 98.0 Pulse 78 82 Resp 18 18 18 B/P (MAP) 149/52 (84) 158/44 (82) Pulse Ox 97 97 96 O2 Delivery Room Air Room Air Room Air Room Air O2 Flow Rate 96.0 10/16/21 10/16/21 10/16/21 10/16/21 07:25 08:00 08:09 08:10 Temp 97.8 97.8 Pulse 84 84 Resp 18 B/P (MAP) 185/71 (109) 185/71 Pulse Ox 96 96 O2 Delivery Room Air Room Air Room Air O2 Flow Rate 96.0 10/16/21 10/16/21 10/16/21 10/16/21 08:10 08:11 09:17 10:47 Temp 97.9 97.9 Pulse 84 84 79 Resp 18 B/P (MAP) 185/71 185/71 119/69 (86) Pulse Ox 96 91 O2 Delivery Room Air Room Air O2 Flow Rate 96.0 10/16/21 14:34 Temp 98.0 98.0 Pulse 82 Resp 18 B/P (MAP) 125/75 (92) Pulse Ox 94 O2 Delivery Room Air Intake and Output 10/15/21 10/15/21 10/16/21 15:00 23:00 07:00 Intake Total 740 ml Output Total 2000 ml 550 ml Balance -2000 ml 190 ml Justifications for Admission Other Justification Acute respiratory failure with hypoxia, acute diastolic CHF exacerbation, right breast mass SALVADOR ANDERSON MD Oct 16, 2021 16:53
[2021-10-16 19:40] VITALS: BP 201/82
[2021-10-16] MEDS ORDERED: HYDROcodone/APAP 5/325MG 1 TAB TABLET PO PRN (20:15)
[2021-10-16] MEDS: ATORVASTATIN CALCIUM 40 MG TABLET. PO SCH (20:54)
[2021-10-16] MEDS: AMITRIPTYLINE HCL 25 MG TABLET. PO SCH (20:54)
[2021-10-16] MEDS: HYDROcodone/APAP 5/325MG 1 TAB TABLET PO PRN (20:54)
[2021-10-16] MEDS: LIDOCAINE (700MG/PATCH) PATCH. TD SCH (20:55)
[2021-10-16] MEDS: INSULIN GLARGINE SYRINGE. SQ SCH (22:02)
[2021-10-16 23:15] VITALS: BP 199/94
[2021-10-17] VITALS (7 sets, daily range): BP systolic 128–186; BP diastolic 48–67
[2021-10-17] MEDS: LIDOCAINE (700MG/PATCH) PATCH. TD SCH (00:42)
[2021-10-17] MEDS: HYDROcodone/APAP 5/325MG 1 TAB TABLET PO PRN ×4 (05:42→20:04)
[2021-10-17 06:07] LABS: CALCIUM 7.8 mg/dL (8.5-10.1); CREATININE 2.3 mg/dL (0.7-1.3); GFR 35.6; MAGNESIUM 1.6 mg/dL (1.8-2.4)
[2021-10-17] MEDS ORDERED: MAGNESIUM OXIDE 400 MG TABLET PO ONE (08:00)
[2021-10-17] MEDS: CLOPIDOGREL BISULFATE 75 MG TABLET PO SCH (08:47)
[2021-10-17] MEDS: metOLazone 2.5 MG TABLET PO SCH (08:47)
[2021-10-17] MEDS: BUMETANIDE 1 MG TABLET. PO SCH ×2 (08:47→16:23)
[2021-10-17] MEDS: PANTOPRAZOLE 40 MG TABLET.DR. PO SCH ×2 (08:47→16:23)
[2021-10-17] MEDS: TAMSULOSIN 0.4 MG CAP.ER.24H. PO SCH (08:47)
[2021-10-17] MEDS: ASPIRIN CHEWABLE 81 MG TABLET. PO SCH (08:47)
[2021-10-17] MEDS: ISOSORBIDE MONONITRATE ER 30 MG TAB.ER.24H PO SCH (08:48)
[2021-10-17] MEDS: INSULIN LISPRO 300 UNITS/3 ML VIAL. SQ SCH ×3 (08:49→16:25)
[2021-10-17] MEDS: PATCH REMOVAL. MC SCH (08:50)
[2021-10-17] MEDS: LOSARTAN POTASSIUM 50 MG TABLET. PO SCH (08:53)
--- NOTE | 2021-10-17 10:14 | PDOC ---
CARDIO Progress Notes Date and Time Date of Service 10/17/21 Time of Evaluation 1000 Subjective Subjective: Other (c/o LE pain) Vitals Vitals Vital Signs Date Time Temp Pulse Resp B/P (MAP) Pulse Ox O2 Delivery O2 Flow Rate FiO2 10/17/21 09:24 95 Room Air 96.0 10/17/21 08:53 91 133/48 10/17/21 07:30 97.8 18 97.8 Weight Weight [ ] Input and Output Intake and Output Intake and Output0 10/17/21 07:00 Intake Total 1000 ml Output Total 1300 ml Balance -300 ml Intake Oral 1000 ml Output Urine Total 1300 ml Laboratory Labs Laboratory Tests Test 10/16/21 11:29 10/16/21 12:15 10/16/21 16:34 10/16/21 21:10 Glucose (Fingerstick) 240 mg/dL (70-99) 328 mg/dL (70-99) 346 mg/dL (70-99) Sodium Level 140 mmol/L (136-145) Potassium Level 4.3 mmol/L (3.5-5.1) Chloride Level 105 mmol/L (98-107) Carbon Dioxide Level 27 mmol/L (21-32) Anion Gap 8 (6-14) Blood Urea Nitrogen 33 mg/dL (8-26) Creatinine 2.4 mg/dL (0.7-1.3) Estimated GFR (Cockcroft-Gault) 33.9 BUN/Creatinine Ratio 14 (6-20) Glucose Level 263 mg/dL (70-99) Calcium Level 7.9 mg/dL (8.5-10.1) Total Bilirubin 0.3 mg/dL (0.2-1.0) Aspartate Amino Transf (AST/SGOT) 7 U/L (15-37) Alanine Aminotransferase (ALT/SGPT) 17 U/L (16-63) Alkaline Phosphatase 91 U/L (46-116) Total Protein 7.7 g/dL (6.4-8.2) Albumin 3.1 g/dL (3.4-5.0) Albumin/Globulin Ratio 0.7 (1.0-1.7) Test 10/17/21 05:20 10/17/21 07:31 Sodium Level 140 mmol/L (136-145) Potassium Level 4.0 mmol/L (3.5-5.1) Chloride Level 105 mmol/L (98-107) Carbon Dioxide Level 26 mmol/L (21-32) Anion Gap 9 (6-14) Blood Urea Nitrogen 41 mg/dL (8-26) Creatinine 2.3 mg/dL (0.7-1.3) Estimated GFR (Cockcroft-Gault) 35.6 Glucose Level 250 mg/dL (70-99) Calcium Level 7.8 mg/dL (8.5-10.1) Magnesium Level 1.6 mg/dL (1.8-2.4) Glucose (Fingerstick) 228 mg/dL (70-99) Physical Exam HEENT: Neck Supple W Full Motion Chest: Symmetric LUNGS: Clear to Auscultation Heart: RRR Abdomen: Soft N/T, Other (obese) Extremities: Other (trace pedal edema. Toes on left cutting machine tender upon palpation ) Neurology: alert, oriented, follow commands Assessment Assessment 1. Chest pain, atypical. AMI ruled out 2. Acute on chronic diastolic CHF; echo with LVEF 60 to 65%. improved s/p diuresis 3. Hypertensive urgency; remains labile 4/ CAD; moderate disease of left circumflex system per LHC in 2017 at [facility]. MPI in 2019 without any significant ischemia with preserved LV function 5. Hyperlipidemia 6. Diabetes, II 7. MARQUISE on CKD 8. Ongoing polysubstance abuse. 9. COPD with continued tobaccoism 10. ROXANNE: uses CPAP at home 11. PAD: prior right femoropopliteal bypass in 2016, clinically stable. Follows with vascular team. Reports recent bilateral LE angiogram without intervention 12. Hypomagnesemia; replaced Recommendations Continue Bumex, metolazone Add hydralazine for BP control Secondary prevention measures Not on BB due to cocaine use hx of bradycardia Reinforced compliance with meds and recreational cocaine/tobacco cessation Obtain records from [facility] cardiology Consider outpatient ischemic evaluation Justicifation of Admission Dx: Justifications for Admission: Justification of Admission Dx: N/A AGUILAR TRIPATHI APRN Oct 17, 2021 10:14
--- NOTE | 2021-10-17 12:08 | PDOC ---
Renal-Progress Notes Subjective Notes Notes NO NEW COMPLAINTS History of Present Illness Hx of present illness STABLE Vitals Vitals Vital Signs Date Time Temp Pulse Resp B/P (MAP) Pulse Ox O2 Delivery O2 Flow Rate FiO2 10/17/21 10:52 78 176/60 (98) 10/17/21 10:23 97.4 20 96 Room Air 97.4 10/17/21 09:24 96.0 Weight Weight [ ] I.O. Intake and Output Intake and Output 10/17/21 07:00 Intake Total 1000 ml Output Total 1300 ml Balance -300 ml Intake Oral 1000 ml Output Urine Total 1300 ml Labs Labs Laboratory Tests Test 10/16/21 12:15 10/16/21 16:34 10/16/21 21:10 10/17/21 05:20 Sodium Level 140 mmol/L (136-145) 140 mmol/L (136-145) Potassium Level 4.3 mmol/L (3.5-5.1) 4.0 mmol/L (3.5-5.1) Chloride Level 105 mmol/L (98-107) 105 mmol/L (98-107) Carbon Dioxide Level 27 mmol/L (21-32) 26 mmol/L (21-32) Anion Gap 8 (6-14) 9 (6-14) Blood Urea Nitrogen 33 mg/dL (8-26) 41 mg/dL (8-26) Creatinine 2.4 mg/dL (0.7-1.3) 2.3 mg/dL (0.7-1.3) Estimated GFR (Cockcroft-Gault) 33.9 35.6 BUN/Creatinine Ratio 14 (6-20) Glucose Level 263 mg/dL (70-99) 250 mg/dL (70-99) Calcium Level 7.9 mg/dL (8.5-10.1) 7.8 mg/dL (8.5-10.1) Total Bilirubin 0.3 mg/dL (0.2-1.0) Aspartate Amino Transf (AST/SGOT) 7 U/L (15-37) Alanine Aminotransferase (ALT/SGPT) 17 U/L (16-63) Alkaline Phosphatase 91 U/L (46-116) Total Protein 7.7 g/dL (6.4-8.2) Albumin 3.1 g/dL (3.4-5.0) Albumin/Globulin Ratio 0.7 (1.0-1.7) Glucose (Fingerstick) 328 mg/dL (70-99) 346 mg/dL (70-99) Magnesium Level 1.6 mg/dL (1.8-2.4) Test 10/17/21 07:31 10/17/21 11:43 Glucose (Fingerstick) 228 mg/dL (70-99) 229 mg/dL (70-99) Review of Systems Constitutional: yes: alert, oriented Ears/Nose/Throat: Yes: no symptom reported Eyes: Yes: no symptom reported Pulmonary: Yes no symptom reported Cardiovascular: Yes no symptom reported Gastrointestional: Yes: no symptom reported Genitourinary: Yes: no symptom reported Musculoskeletal: Yes: no symptom reported Skin: Yes no symptom reported Psychiatric/Neurological: Yes: no symptom reported Endocrine: Yes: no symptom reported Physical Exam General Appearance: no apparent distress Skin: warm Respiratory: bilateral CTA Heart: S1S2 Abdomen: soft, bowel sounds present Genitourinary: bladder flat Extremities: pulses present Neurology: alert, oriented Musculoskeletal: Other Assessment Assessment IMP CKD STAGE 4-CR AT BASELINE-CR STABLE AT 2.6 HYPOKALEMIA-CORRECTED HYPOMAGNESEMIA NON COMPLIANCE CHEST PAIN BPH CAD HX UNCONTROLLED HTN POLYSUBSTANCE DRUG ABUSE-COCAINE PLAN CONT SAME CONT WITH ARB AND DIURETICS CONT FLOMAX RESUME HOME MEDS ENC COMPLIANCE CARDIOLOGY EVALUATION REPLACE MAG WILL FOLLOW COREEN VERDE MD Oct 17, 2021 12:07
--- NOTE | 2021-10-17 13:03 | NUR ---
SS following up with discharge planning. SS reviewed pt chart and discussed with pt RN. Pt is currently on room air. Cardiology and Nephrology following. Discharge plan is currently to home when medically ready for discharge. SS will continue to follow for discharge planning.
[2021-10-17] MEDS ORDERED: predniSONE 20 MG TABLET PO ONE (14:45)
--- NOTE | 2021-10-17 14:45 | PDOC ---
[employer] PROGRESS NOTE Date of Service DOS: DATE: 10/17/21 TIME: 14:44 Chief Complaint Chief Complaint A/P: Chest pain Right flank pain Bilateral toe pain Coronary artery disease, moderate in nature without prior intervention. Peripheral arterial disease. Polysubstance use disorder History of cardiomyopathy, presumably diastolic heart failure. Dyslipidemia. Chronic kidney disease. Left great toe pain - likely podagra - treat as gout History of Present Illness History of Present Illness Mr Moran is a 56-year-old male with CAD, cardiomyopathy likely due to cocaine abuse, PAD, HLD, CKD who comes to ED c/o chest pain. UDS positive for cocaine. [facility]. Has had intermittent chest pain for the past 2 months and has been sharp. Did remit with nitroglycerin. He notes he did use cocaine on 10/12/2021. 10/16: HS troponin 49. Still some sharp left-sided chest pain and right flank pain, bilateral toe pain. No shortness of breath. 10/17: Chest pain and flank pain improved. Mag 1.6 CR BUN relatively stable. His left great toe is exquisitely painful unable to bear weight on it. He thinks this is a vascular problem though he did just have vascular assessment at [facility]. Will check uric acid CRP sed rate and treat empirically for gout. Vitals/I&O Vitals/I&O: Vital Signs Date Time Temp Pulse Resp B/P (MAP) Pulse Ox O2 Delivery O2 Flow Rate FiO2 10/17/21 14:12 96 Room Air 96.0 10/17/21 13:43 78 176/60 10/17/21 10:23 97.4 20 97.4 I & O 10/16/21 10/16/21 10/17/21 15:00 23:00 07:00 Intake Total 360 ml 640 ml Output Total 800 ml 500 ml Balance 360 ml -800 ml 140 ml Physical Exam General: mild distress Heart: Regular rate Lungs: Clear, Wheezing, Crackles Abdomen: Normal bowel sounds Extremities: No cyanosis Skin: No breakdown Labs Labs: Laboratory Tests Test 10/16/21 16:34 10/16/21 21:10 10/17/21 05:20 10/17/21 07:31 Glucose (Fingerstick) 328 mg/dL (70-99) 346 mg/dL (70-99) 228 mg/dL (70-99) Sodium Level 140 mmol/L (136-145) Potassium Level 4.0 mmol/L (3.5-5.1) Chloride Level 105 mmol/L (98-107) Carbon Dioxide Level 26 mmol/L (21-32) Anion Gap 9 (6-14) Blood Urea Nitrogen 41 mg/dL (8-26) Creatinine 2.3 mg/dL (0.7-1.3) Estimated GFR (Cockcroft-Gault) 35.6 Glucose Level 250 mg/dL (70-99) Calcium Level 7.8 mg/dL (8.5-10.1) Magnesium Level 1.6 mg/dL (1.8-2.4) Test 10/17/21 11:43 Glucose (Fingerstick) 229 mg/dL (70-99) Assessment and Plan Assessmemt and Plan Problems Medical Problems: (1) Chest pain Status: Acute (2) CHF (congestive heart failure) Status: Acute (3) Chronic kidney disease Status: Acute (4) Cocaine use Status: Acute (5) Diabetes mellitus Status: Acute Comment Review of Relevant I have reviewed the following items karissa (where applicable) has been applied. Medications: Current Medications Medications (Trade) Dose Ordered Sig/Kiera Route PRN Reason Start Time Stop Time Status Last Admin Dose Admin Acetaminophen/ Hydrocodone Bitart (Lortab 5/325) 2 tab PRN Q4HRS PRN PO MODERATE PAIN, SEVERE PAIN 10/16/21 20:15 10/17/21 13:45 Insulin Glargine (Lantus Syringe) 20 unit QHS SQ 10/16/21 21:00 10/16/21 22:02 Magnesium Oxide (Magnesium Oxide) 400 mg 1X ONCE PO 10/17/21 08:00 10/17/21 08:01 DC 10/17/21 08:48 Hydralazine HCl (Apresoline) 50 mg BID PO 10/17/21 13:30 10/17/21 13:43 Justifications for Admission Other Justification Acute respiratory failure with hypoxia, acute diastolic CHF exacerbation, right breast mass CASTILLO NICK MD Oct 17, 2021 14:45
[2021-10-17 15:14] LABS: C-REACTIVE PROTEIN 19.6 mg/L (0-3.3); URIC ACID 9.4 mg/dL (3.5-7.2)
[2021-10-17] MEDS: DICLOFENAC SODIUM 1% TOPICAL GEL 100GM TUBE. TP SCH ×2 (16:23→21:00)
[2021-10-17] MEDS: ATORVASTATIN CALCIUM 40 MG TABLET. PO SCH (21:34)
[2021-10-17] MEDS: AMITRIPTYLINE HCL 25 MG TABLET. PO SCH (21:34)
[2021-10-17] MEDS: INSULIN GLARGINE SYRINGE. SQ SCH (21:35)
[2021-10-18] MEDS: HYDROcodone/APAP 5/325MG 1 TAB TABLET PO PRN ×2 (00:18→05:08)
[2021-10-18 03:25] VITALS: BP 154/66
[2021-10-18] MEDS: PANTOPRAZOLE 40 MG TABLET.DR. PO SCH ×2 (05:07→15:01)
[2021-10-18 06:46] LABS: CALCIUM 8.6 mg/dL (8.5-10.1); CREATININE 3.1 mg/dL (0.7-1.3); GFR 25.3; MAGNESIUM 1.4 mg/dL (1.8-2.4)
[2021-10-18 07:00] VITALS: BP 119/39
[2021-10-18] MEDS: ASPIRIN CHEWABLE 81 MG TABLET. PO SCH (07:49)
[2021-10-18] MEDS: LOSARTAN POTASSIUM 50 MG TABLET. PO SCH (07:50)
[2021-10-18] MEDS: ISOSORBIDE MONONITRATE ER 30 MG TAB.ER.24H PO SCH (07:50)
[2021-10-18] MEDS: BUMETANIDE 1 MG TABLET. PO SCH ×2 (07:51→15:01)
[2021-10-18] MEDS: DICLOFENAC SODIUM 1% TOPICAL GEL 100GM TUBE. TP SCH ×2 (07:51→19:27)
[2021-10-18] MEDS: TAMSULOSIN 0.4 MG CAP.ER.24H. PO SCH (07:51)
[2021-10-18] MEDS: CLOPIDOGREL BISULFATE 75 MG TABLET PO SCH (07:51)
[2021-10-18] MEDS: PATCH REMOVAL. MC SCH (07:52)
[2021-10-18] MEDS ORDERED: DEXTROSE 50% 25 GM / 50ML DISP.SYRIN. IV PRN (08:00)
[2021-10-18] MEDS ORDERED: INSULIN LISPRO 300 UNITS/3 ML VIAL. SQ ONE ×3 (08:15→22:00)
[2021-10-18] MEDS: INSULIN LISPRO 300 UNITS/3 ML VIAL. SQ SCH ×6 (08:25→16:37)
[2021-10-18 10:09] VITALS: BP 132/44
--- NOTE | 2021-10-18 11:39 | PDOC ---
[employer] PROGRESS NOTE Date of Service DOS: DATE: 10/18/21 TIME: 11:38 Chief Complaint Chief Complaint A/P: Chest pain Right flank pain Bilateral toe pain Coronary artery disease, moderate in nature without prior intervention. Peripheral arterial disease. Polysubstance use disorder History of cardiomyopathy, presumably diastolic heart failure. Dyslipidemia. Chronic kidney disease. Left great toe pain - likely podagra - treat as gout History of Present Illness History of Present Illness Mr Moran is a 56-year-old male with CAD, cardiomyopathy likely due to cocaine abuse, PAD, HLD, CKD who comes to ED c/o chest pain. UDS positive for cocaine. He notes he was just seen at [facility] and had peripheral vascular disease evaluation. Has had intermittent chest pain for the past 2 months and has been sharp. Did remit with nitroglycerin. He notes he did use cocaine on 10/12/2021. 10/16: HS troponin 49. Still some sharp left-sided chest pain and right flank pain, bilateral toe pain. No shortness of breath. 10/17: Chest pain and flank pain improved. Mag 1.6 CR BUN relatively stable. His left great toe is exquisitely painful unable to bear weight on it. He thinks this is a vascular problem though he did just have vascular assessment at [facility]. CRP 19.6, uric acid 9.4, sed rate 50, started on prednisone 60mg. 10/18: Chest pain flank pain improved. Mag 1.4 CR BUN increased. Off metolazone for right now. His toe pain is improved is able to bear weight on it. Vitals/I&O Vitals/I&O: Vital Signs Date Time Temp Pulse Resp B/P (MAP) Pulse Ox O2 Delivery O2 Flow Rate FiO2 10/18/21 10:09 98.0 96 20 132/44 (73) 93 Room Air 98.0 10/18/21 00:48 96.0 I & O 10/17/21 10/17/21 10/18/21 15:00 23:00 07:00 Intake Total 420 ml 180 ml 120 ml Output Total 800 ml 600 ml 600 ml Balance -380 ml -420 ml -480 ml Physical Exam General: Alert, mild distress Heart: Regular rate Lungs: Clear, Wheezing, Crackles Abdomen: Normal bowel sounds Extremities: No cyanosis Skin: No breakdown Labs Labs: Laboratory Tests Test 10/17/21 11:43 10/17/21 16:00 10/17/21 16:14 10/17/21 21:02 Glucose (Fingerstick) 229 mg/dL (70-99) 180 mg/dL (70-99) 218 mg/dL (70-99) Erythrocyte Sedimentation Rate 50 (0-15) Test 10/18/21 04:43 10/18/21 07:46 10/18/21 11:13 Sodium Level 133 mmol/L (136-145) Potassium Level 5.0 mmol/L (3.5-5.1) Chloride Level 98 mmol/L (98-107) Carbon Dioxide Level 19 mmol/L (21-32) Anion Gap 16 (6-14) Blood Urea Nitrogen 54 mg/dL (8-26) Creatinine 3.1 mg/dL (0.7-1.3) Estimated GFR (Cockcroft-Gault) 25.3 Glucose Level 454 mg/dL (70-99) Calcium Level 8.6 mg/dL (8.5-10.1) Magnesium Level 1.4 mg/dL (1.8-2.4) Glucose (Fingerstick) 451 mg/dL (70-99) 383 mg/dL (70-99) Assessment and Plan Assessmemt and Plan Problems Medical Problems: (1) Chest pain Status: Acute (2) CHF (congestive heart failure) Status: Acute (3) Chronic kidney disease Status: Acute (4) Cocaine use Status: Acute (5) Diabetes mellitus Status: Acute Comment Review of Relevant I have reviewed the following items karissa (where applicable) has been applied. Medications: Current Medications Medications (Trade) Dose Ordered Sig/Kiera Route PRN Reason Start Time Stop Time Status Last Admin Dose Admin Hydralazine HCl (Apresoline) 50 mg BID PO 10/17/21 13:30 10/18/21 07:51 Prednisone (Prednisone) 60 mg 1X ONCE PO 10/17/21 14:45 10/17/21 14:47 DC 10/17/21 16:23 Diclofenac Sodium (Voltaren) 1 nathalie BID TP 10/17/21 14:45 10/18/21 07:51 Insulin Human Lispro (HumaLOG) 8 units TIDAC SQ 10/18/21 08:30 10/18/21 08:25 Insulin Human Lispro (HumaLOG) 24 units 1X ONCE SQ 10/18/21 08:15 10/18/21 08:16 DC 10/18/21 08:25 Justifications for Admission Other Justification Acute respiratory failure with hypoxia, acute diastolic CHF exacerbation, right breast mass CASTILLO NICK MD Oct 18, 2021 11:39
[2021-10-18] MEDS ORDERED: MAGNESIUM SULFATE 2GM 50 ML IV ONE (12:00)
[2021-10-18] MEDS: MAGNESIUM OXIDE 400 MG TABLET PO SCH ×2 (12:50→19:24)
--- NOTE | 2021-10-18 13:53 | PDOC ---
Renal-Progress Notes Subjective Notes Notes NO NEW COMPLAINTS History of Present Illness Hx of present illness STABLE Vitals Vitals Vital Signs Date Time Temp Pulse Resp B/P (MAP) Pulse Ox O2 Delivery O2 Flow Rate FiO2 10/18/21 10:09 98.0 96 20 132/44 (73) 93 Room Air 98.0 10/18/21 00:48 96.0 Weight Weight [ ] I.O. Intake and Output Intake and Output 10/18/21 07:00 Intake Total 720 ml Output Total 2000 ml Balance -1280 ml Intake Oral 720 ml Output Urine Total 2000 ml Labs Labs Laboratory Tests Test 10/17/21 16:00 10/17/21 16:14 10/17/21 21:02 10/18/21 04:43 Erythrocyte Sedimentation Rate 50 (0-15) Glucose (Fingerstick) 180 mg/dL (70-99) 218 mg/dL (70-99) Sodium Level 133 mmol/L (136-145) Potassium Level 5.0 mmol/L (3.5-5.1) Chloride Level 98 mmol/L (98-107) Carbon Dioxide Level 19 mmol/L (21-32) Anion Gap 16 (6-14) Blood Urea Nitrogen 54 mg/dL (8-26) Creatinine 3.1 mg/dL (0.7-1.3) Estimated GFR (Cockcroft-Gault) 25.3 Glucose Level 454 mg/dL (70-99) Calcium Level 8.6 mg/dL (8.5-10.1) Magnesium Level 1.4 mg/dL (1.8-2.4) Test 10/18/21 07:46 10/18/21 11:13 Glucose (Fingerstick) 451 mg/dL (70-99) 383 mg/dL (70-99) Review of Systems Constitutional: yes: alert, oriented Ears/Nose/Throat: Yes: no symptom reported Eyes: Yes: no symptom reported Pulmonary: Yes no symptom reported Cardiovascular: Yes no symptom reported Gastrointestional: Yes: no symptom reported Genitourinary: Yes: no symptom reported Musculoskeletal: Yes: no symptom reported Skin: Yes no symptom reported Psychiatric/Neurological: Yes: no symptom reported Endocrine: Yes: no symptom reported Physical Exam General Appearance: no apparent distress Skin: warm Respiratory: bilateral CTA Heart: S1S2 Abdomen: soft, bowel sounds present Genitourinary: bladder flat Extremities: pulses present Neurology: alert, oriented, follow commands Musculoskeletal: Other Assessment Assessment IMP CKD STAGE 4-CR AT BASELINE-CR OF 2.6- UP TO 3.1 TODAY MILD HYPERKALEMIA HYPOMAGNESEMIA NON COMPLIANCE CHEST PAIN BPH CAD HX UNCONTROLLED HTN-LABILE POLYSUBSTANCE DRUG ABUSE-COCAINE PLAN CONT SAME CONT DIURETICS HOLD ARB I LITER IVF CONT FLOMAX ENC COMPLIANCE CARDIOLOGY EVALUATION REPLACE MAG WILL FOLLOW LABS IN AM COREEN VERDE MD Oct 18, 2021 13:53
[2021-10-18] MEDS ORDERED: IV NORMAL SALINE 1000ML BAG 1,000 ML IV ONE (14:00)
[2021-10-18 15:00] VITALS: BP 137/70
[2021-10-18] MEDS: predniSONE 20 MG TABLET PO SCH (15:01)
--- NOTE | 2021-10-18 15:20 | PDOC ---
PROGRESS NOTES Date of Service DATE: 10/18/21 TIME: 15:17 Subjective Subjective Patient seen and examined Objective Objective Vital Signs Date Time Temp Pulse Resp B/P (MAP) Pulse Ox O2 Delivery O2 Flow Rate FiO2 10/18/21 10:09 98.0 96 20 132/44 (73) 93 Room Air 98.0 10/18/21 00:48 96.0 Intake and Output 10/18/21 07:00 Intake Total 720 ml Output Total 2000 ml Balance -1280 ml Intake Oral 720 ml Output Urine Total 2000 ml Physical Exam Abdomen: Normal bowel sounds Heart: Regular rate General: mild distress Lungs: Other (Mildly decreased breath sounds) Assessment Assessment Problems Medical Problems: (1) Chest pain Status: Acute (2) CHF (congestive heart failure) Status: Acute (3) Chronic kidney disease Status: Acute (4) Cocaine use Status: Acute (5) Diabetes mellitus Status: Acute Chest pain, atypical. AMI ruled out. Feeling better. Acute on chronic diastolic CHF; echo with LVEF 60 to 65%. improved s/p diuresis Hypertensive urgency; improved. CAD; moderate disease of left circumflex system per [facility] in 2017 at [facility]. MPI in 2019 without any significant ischemia with preserved LV function. Not on beta- blockers due to a history of bradycardia. Hyperlipidemia Diabetes, II MARQUISE on CKD. BUN and creatinine are up at 54 and 3.1. Patient is off metolazone. Being followed by the renal service. Ongoing polysubstance abuse. COPD with continued tobaccoism ROXANNE: uses CPAP at home PAD: prior right femoropopliteal bypass in 2016, clinically stable. Follows with vascular team. Reports recent bilateral LE angiogram without intervention Hypomagnesemia; replaced Comment Review of Relevant I have reviewed the following items karissa (where applicable) has been applied. Labs Laboratory Tests Test 10/16/21 16:34 10/16/21 21:10 10/17/21 05:20 10/17/21 07:31 Glucose (Fingerstick) 328 mg/dL (70-99) 346 mg/dL (70-99) 228 mg/dL (70-99) Sodium Level 140 mmol/L (136-145) Potassium Level 4.0 mmol/L (3.5-5.1) Chloride Level 105 mmol/L (98-107) Carbon Dioxide Level 26 mmol/L (21-32) Anion Gap 9 (6-14) Blood Urea Nitrogen 41 mg/dL (8-26) Creatinine 2.3 mg/dL (0.7-1.3) Estimated GFR (Cockcroft-Gault) 35.6 Glucose Level 250 mg/dL (70-99) Uric Acid 9.4 mg/dL (3.5-7.2) Calcium Level 7.8 mg/dL (8.5-10.1) Magnesium Level 1.6 mg/dL (1.8-2.4) C-Reactive Protein, Quantitative 19.6 mg/L (0-3.3) Test 10/17/21 11:43 10/17/21 16:00 10/17/21 16:14 10/17/21 21:02 Glucose (Fingerstick) 229 mg/dL (70-99) 180 mg/dL (70-99) 218 mg/dL (70-99) Erythrocyte Sedimentation Rate 50 (0-15) Test 10/18/21 04:43 10/18/21 07:46 10/18/21 11:13 Sodium Level 133 mmol/L (136-145) Potassium Level 5.0 mmol/L (3.5-5.1) Chloride Level 98 mmol/L (98-107) Carbon Dioxide Level 19 mmol/L (21-32) Anion Gap 16 (6-14) Blood Urea Nitrogen 54 mg/dL (8-26) Creatinine 3.1 mg/dL (0.7-1.3) Estimated GFR (Cockcroft-Gault) 25.3 Glucose Level 454 mg/dL (70-99) Calcium Level 8.6 mg/dL (8.5-10.1) Magnesium Level 1.4 mg/dL (1.8-2.4) Glucose (Fingerstick) 451 mg/dL (70-99) 383 mg/dL (70-99) Laboratory Tests Test 10/17/21 16:00 10/17/21 16:14 10/17/21 21:02 10/18/21 04:43 Erythrocyte Sedimentation Rate 50 (0-15) Glucose (Fingerstick) 180 mg/dL (70-99) 218 mg/dL (70-99) Sodium Level 133 mmol/L (136-145) Potassium Level 5.0 mmol/L (3.5-5.1) Chloride Level 98 mmol/L (98-107) Carbon Dioxide Level 19 mmol/L (21-32) Anion Gap 16 (6-14) Blood Urea Nitrogen 54 mg/dL (8-26) Creatinine 3.1 mg/dL (0.7-1.3) Estimated GFR (Cockcroft-Gault) 25.3 Glucose Level 454 mg/dL (70-99) Calcium Level 8.6 mg/dL (8.5-10.1) Magnesium Level 1.4 mg/dL (1.8-2.4) Test 10/18/21 07:46 10/18/21 11:13 Glucose (Fingerstick) 451 mg/dL (70-99) 383 mg/dL (70-99) Medications Current Medications Aspirin (Aspirin Chewable) 324 mg 1X ONCE PO Last administered on 10/15/21at 07:39; Start 10/15/21 at 07:30; Stop 10/15/21 at 07:31; Status DC Nitroglycerin (Nitrostat) 0.4 mg PRN Q5MIN PRN SL CHEST PAIN Last administered on 10/15/21at 07:46; Start 10/15/21 at 07:00; Stop 10/15/21 at 17:55; Status DC Acetaminophen (Tylenol) 1,000 mg 1X ONCE PO Last administered on 10/15/21at 08:06; Start 10/15/21 at 08:00; Stop 10/15/21 at 08:01; Status DC Lorazepam (Ativan Inj) 1 mg 1X ONCE IVP Last administered on 10/15/21at 08:04; Start 10/15/21 at 08:00; Stop 10/15/21 at 08:01; Status DC Lorazepam (Ativan Inj) 2 mg STK-MED ONCE .ROUTE ; Start 10/15/21 at 08:00; Stop 10/15/21 at 08:00; Status DC Acetaminophen (Tylenol) 650 mg PRN Q4HRS PRN PO FEVER > 100.3'F; Start 10/15/21 at 09:45 Morphine Sulfate (Morphine Sulfate) 4 mg PRN Q4HRS PRN IVP chest pain Last administered on 10/16/21at 08:09; Start 10/15/21 at 09:45 Amitriptyline HCl (Elavil) 25 mg HS PO Last administered on 10/17/21at 21:34; Start 10/15/21 at 21:00 Amlodipine Besylate (Norvasc) 10 mg DAILY PO Last administered on 10/18/21 07:50; Start 10/15/21 at 11:00 Aspirin (Aspirin Chewable) 81 mg DAILYWBKFT PO Last administered on 10/18/21 07:49; Start 10/15/21 at 11:00 Atorvastatin Calcium (Lipitor) 80 mg QHS PO Last administered on 10/17/21 21:34; Start 10/15/21 at 21:00 Bumetanide (Bumex) 1 mg BID94 PO Last administered on 10/18/21 15:01; Start 10/15/21 at 11:00 Clopidogrel Bisulfate (Plavix) 75 mg DAILY PO Last administered on 10/18/21 07:51; Start 10/15/21 at 11:00 Isosorbide Mononitrate (Imdur) 60 mg DAILY PO Last administered on 10/18/21 07:50; Start 10/15/21 at 11:00 Metolazone (Zaroxolyn) 2.5 mg DAILY PO Last administered on 10/17/21 08:47; Start 10/15/21 at 11:00; Stop 10/17/21 at 14:46; Status DC Nitroglycerin (Nitrostat) 0.4 mg PRN Q5MIN PRN SL CHEST PAIN; Start 10/15/21 at 10:30 Pantoprazole Sodium (Protonix) 40 mg BIDAC PO Last administered on 10/18/21 15:01; Start 10/15/21 at 11:30 Senna/Docusate Sodium (Senna Plus) 2 tab PRN QEVNG PRN PO CONSTIPATION; Start 10/15/21 at 10:30 Tamsulosin HCl (Flomax) 0.4 mg DAILY PO Last administered on 10/18/21 07:51; Start 10/15/21 at 11:00 Losartan Potassium (Cozaar) 100 mg DAILY PO Last administered on 10/18/21 07 :50; Start 10/15/21 at 11:00; Stop 10/18/21 at 13:55; Status DC Furosemide (Lasix) 40 mg 1X ONCE IVP Last administered on 10/15/21at 14:00; Start 10/15/21 at 14:00; Stop 10/15/21 at 14:01; Status DC Insulin Human Lispro (HumaLOG) 0-7 UNITS TIDWMEALS SQ Last administered on 10/17/21at 16:25; Start 10/16/21 at 08:00; Stop 10/18/21 at 08:03; Status DC Dextrose (Dextrose 50%-Water Syringe) 12.5 gm PRN Q15MIN PRN IV SEE COMMENTS; Start 10/15/21 at 17:45 Lidocaine (Lidoderm) 1 patch DAILY TD Last administered on 10/15/21at 18:41; Start 10/15/21 at 18:00; Stop 10/15/21 at 20:50; Status DC Miscellaneous (Lidoderm Patch Removal) 1 ea DAILY MC ; Start 10/16/21 at 09:00 Lidocaine (Lidoderm) 1 patch QHS TD Last administered on 10/17/21at 00:42; Start 10/15/21 at 21:00 Potassium Chloride (Klor-Con) 10 meq 1X ONCE PO Last administered on 10/16/21at 12:52; Start 10/16/21 at 13:00; Stop 10/16/21 at 13:01; Status DC Magnesium Sulfate/ Dextrose 100 ml @ 100 mls/hr 1X ONCE IV Last administered on 10/16/21at 12:53; Start 10/16/21 at 13:00; Stop 10/16/21 at 13:59; Status DC Acetaminophen/ Hydrocodone Bitart (Lortab 5/325) 1 tab PRN Q4HRS PRN PO MILD PAIN 1-3; Start 10/16/21 at 20:15 Acetaminophen/ Hydrocodone Bitart (Lortab 5/325) 2 tab PRN Q4HRS PRN PO MODERATE PAIN, SEVERE PAIN Last administered on 10/18/21at 05:08; Start 10/16/21 at 20:15 Insulin Glargine (Lantus Syringe) 20 unit QHS SQ Last administered on 10/17/21at 21:35; Start 10/16/21 at 21:00; Stop 10/18/21 at 08:04; Status DC Magnesium Oxide (Magnesium Oxide) 400 mg 1X ONCE PO Last administered on 10/17/21at 08:48; Start 10/17/21 at 08:00; Stop 10/17/21 at 08:01; Status DC Hydralazine HCl (Apresoline) 50 mg BID PO Last administered on 10/18/21at 07:51; Start 10/17/21 at 13:30 Prednisone (Prednisone) 60 mg 1X ONCE PO Last administered on 10/17/21at 16:23; Start 10/17/21 at 14:45; Stop 10/17/21 at 14:47; Status DC Diclofenac Sodium (Voltaren) 1 nathalie BID TP Last administered on 10/18/21at 07:51; Start 10/17/21 at 14:45 Insulin Glargine (Lantus Syringe) 32 unit QHS SQ ; Start 10/18/21 at 21:00 Insulin Human Lispro (HumaLOG) 8 units TIDAC SQ Last administered on 10/18/21at 11:57; Start 10/18/21 at 08:30 Insulin Human Lispro (HumaLOG) 0-9 UNITS TIDWMEALS SQ Last administered on 10/18/21at 11:58; Start 10/18/21 at 08:30 Dextrose (Dextrose 50%-Water Syringe) 12.5 gm PRN Q15MIN PRN IV SEE COMMENTS; Start 10/18/21 at 08:00; Stop 10/18/21 at 08:06; Status DC Insulin Human Lispro (HumaLOG) 24 units 1X ONCE SQ Last administered on 10/18/21at 08:25; Start 10/18/21 at 08:15; Stop 10/18/21 at 08:16; Status DC Magnesium Sulfate 50 ml @ 25 mls/hr 1X ONCE IV ; Start 10/18/21 at 12:00; Stop 10/18/21 at 12:41; Status DC Insulin Human Lispro (HumaLOG) 5 units 1X ONCE SQ Last administered on 10/18/21at 11:57; Start 10/18/21 at 11:45; Stop 10/18/21 at 11:46; Status DC Magnesium Oxide (Magnesium Oxide) 400 mg TID PO Last administered on 10/18/21at 12:50; Start 10/18/21 at 14:00 Prednisone (Prednisone) 20 mg DAILY PO Last administered on 10/18/21at 15:01; Start 10/18/21 at 13:45; Stop 10/22/21 at 13:44 Sodium Chloride 1,000 ml @ 75 mls/hr 1X ONCE IV ; Start 10/18/21 at 14:00; Stop 10/19/21 at 03:19 Active Scripts Active Admelog (Insulin Lispro) 100 Unit/1 Ml Vial 0 Units SQ TIDWMEALS 14 Days Acetaminophen 325 Mg Tablet 650 Mg PO PRN Q6HRS PRN 30 Days Hydrocodone-Apap 5-325 (Hydrocodone Bit/Acetaminophen) 1 Tab Tablet 1 Tab PO PRN Q6HRS PRN Atorvastatin Calcium 40 Mg Tablet 80 Mg PO QHS Amlodipine Besylate 10 Mg Tablet 10 Mg PO DAILY Nitrostat (Nitroglycerin) 0.4 Mg Tab.subl 0.4 Mg SL PRN Q5MIN PRN Isosorbide Mononitrate Er (Isosorbide Mononitrate) 30 Mg Tab.er.24h 60 Mg PO DAILY Metolazone 2.5 Mg Tablet 2.5 Mg PO DAILY 30 Days Bumetanide 1 Mg Tablet 1 Mg PO BID94 30 Days Flomax (Tamsulosin Hcl) 0.4 Mg Cap.er.24h 0.4 Mg PO DAILY Children's Aspirin (Aspirin) 81 Mg Tab.chew 81 Mg PO DAILYWBKFT Reported Vitamin D3 (Vitamin D) 25 Mcg Tablet 25 Mcg PO DAILY 1,000 UNITS = 25 MCG Amitriptyline Hcl 25 Mg Tablet 25 Mg PO HS Jardiance (Empagliflozin) 10 Mg Tablet 10 Mg PO DAILY Losartan Potassium 100 Mg Tablet 100 Mg PO DAILY Senna-Docusate Sodium Tablet (Sennosides/Docusate Sodium) 1 Each Tablet 2 Tab PO PRN QEVNG PRN 5 Days Clopidogrel (Clopidogrel Bisulfate) 75 Mg Tablet 75 Mg PO DAILY Gabapentin 600 Mg Tablet 300 Mg PO TID Protonix (Pantoprazole Sodium) 40 Mg Tablet.dr 40 Mg PO BID Hydralazine Hcl 100 Mg Tablet 100 Mg PO TID Levemir Flexpen (Insulin Detemir) 100 Unit/1 Ml Insuln.pen 60 Unit SQ HS Novolog Flexpen (Insulin Aspart) 100 Unit/1 Ml Insuln.pen 30 Unit SQ TIDAC Vitals/I & O Vital Sign - Last 24 Hours 10/17/21 10/17/21 10/17/21 10/17/21 19:40 20:04 20:34 21:34 Temp 97.8 97.8 Pulse 80 80 Resp 20 18 18 B/P (MAP) 173/67 (102) 173/67 Pulse Ox 93 97 92 O2 Delivery Room Air Room Air Room Air O2 Flow Rate 96.0 96.0 10/17/21 10/18/21 10/18/21 10/18/21 22:45 00:18 00:48 01:28 Temp 97.7 97.7 Pulse 81 Resp 20 18 18 B/P (MAP) 155/54 (87) Pulse Ox 92 92 92 O2 Delivery Room Air Room Air Room Air Room Air O2 Flow Rate 96.0 96.0 10/18/21 10/18/21 10/18/21 10/18/21 03:25 05:08 05:38 07:00 Temp 98.0 97.9 98.0 97.9 Pulse 56 90 Resp 20 18 18 18 B/P (MAP) 154/66 (95) 119/39 (65) Pulse Ox 97 97 97 95 O2 Delivery Room Air Room Air Room Air Room Air 10/18/21 10/18/21 10/18/21 10/18/21 07:50 07:50 07:50 07:51 Pulse 90 90 90 90 B/P (MAP) 119/39 119/39 119/39 119/39 10/18/21 10/18/21 08:00 10:09 Temp 98.0 98.0 Pulse 96 Resp 20 B/P (MAP) 132/44 (73) Pulse Ox 93 O2 Delivery Room Air Room Air Intake and Output 10/17/21 10/17/21 10/18/21 15:00 23:00 07:00 Intake Total 420 ml 180 ml 120 ml Output Total 800 ml 600 ml 600 ml Balance -380 ml -420 ml -480 ml Justifications for Admission Other Justification Acute respiratory failure with hypoxia, acute diastolic CHF exacerbation, right breast mass SALVADOR ANDERSON MD Oct 18, 2021 15:20
[2021-10-18] MEDS: ATORVASTATIN CALCIUM 40 MG TABLET. PO SCH (19:25)
[2021-10-18] MEDS: AMITRIPTYLINE HCL 25 MG TABLET. PO SCH (19:25)
[2021-10-18] MEDS: LIDOCAINE (700MG/PATCH) PATCH. TD SCH (19:26)
[2021-10-18 19:36] VITALS: BP 157/74
[2021-10-18] MEDS: INSULIN GLARGINE SYRINGE. SQ SCH ×2 (21:38→22:09)
[2021-10-18 22:11] VITALS: BP 192/63
--- NOTE | 2021-10-18 22:22 | NUR ---
PT STATES HIS INSULIN IS SUPPOSE TO BE 30 UNITS WITH MEALS AND 70 UNITS LEVIMER. AND THAT IS WHY HE HAS BEEN SO HIGH. LCRN
[2021-10-19 02:28] VITALS: BP 141/49
[2021-10-19 04:42] LABS: CALCIUM 8.6 mg/dL (8.5-10.1); CREATININE 2.9 mg/dL (0.7-1.3); GFR 27.3; MAGNESIUM 1.7 mg/dL (1.8-2.4); POTASSIUM 5.1 mmol/L (3.5-5.1)
[2021-10-19 07:00] VITALS: BP 196/60
[2021-10-19] MEDS: ASPIRIN CHEWABLE 81 MG TABLET. PO SCH (08:49)
[2021-10-19] MEDS: predniSONE 20 MG TABLET PO SCH (08:49)
[2021-10-19] MEDS: MAGNESIUM OXIDE 400 MG TABLET PO SCH ×2 (08:49→14:42)
[2021-10-19] MEDS: PANTOPRAZOLE 40 MG TABLET.DR. PO SCH ×2 (08:49→16:30)
[2021-10-19] MEDS: TAMSULOSIN 0.4 MG CAP.ER.24H. PO SCH (08:49)
[2021-10-19] MEDS: CLOPIDOGREL BISULFATE 75 MG TABLET PO SCH (08:49)
[2021-10-19] MEDS: BUMETANIDE 1 MG TABLET. PO SCH ×2 (08:49→16:23)
[2021-10-19] MEDS: ISOSORBIDE MONONITRATE ER 30 MG TAB.ER.24H PO SCH (08:50)
[2021-10-19] MEDS: HYDROcodone/APAP 5/325MG 1 TAB TABLET PO PRN ×2 (08:51→14:42)
[2021-10-19] MEDS: INSULIN LISPRO 300 UNITS/3 ML VIAL. SQ SCH ×6 (08:55→16:50)
[2021-10-19] MEDS: PATCH REMOVAL. MC SCH (08:56)
[2021-10-19] MEDS: DICLOFENAC SODIUM 1% TOPICAL GEL 100GM TUBE. TP SCH (09:00)
--- NOTE | 2021-10-19 09:30 | PDOC ---
AGUILAR TRIPATHI MILIEU TECHNICIAN 10/19/21 0930: CARDIO Progress Notes Date and Time Date of Service 10/19/21 Time of Evaluation 0915 Subjective Subjective: No Chest Pain, No Palpitations, No Dizziness, Other (still slightly SOA) Vitals Vitals Vital Signs Date Time Temp Pulse Resp B/P (MAP) Pulse Ox O2 Delivery O2 Flow Rate FiO2 10/19/21 08:51 95 Room Air 96.0 10/19/21 08:50 196/60 10/19/21 02:28 97.6 88 20 97.6 Weight Weight [ ] Input and Output Intake and Output Intake and Output 10/19/21 07:00 Intake Total 1340 ml Output Total 1650 ml Balance -310 ml Intake Oral 1340 ml Output Urine Total 1650 ml # Voids 3 Laboratory Labs Laboratory Tests Test 10/18/21 11:13 10/18/21 16:15 10/18/21 20:25 10/19/21 03:05 Glucose (Fingerstick) 383 mg/dL (70-99) 202 mg/dL (70-99) 332 mg/dL (70-99) Sodium Level 135 mmol/L (136-145) Potassium Level 5.1 mmol/L (3.5-5.1) Chloride Level 101 mmol/L (98-107) Carbon Dioxide Level 24 mmol/L (21-32) Anion Gap 10 (6-14) Blood Urea Nitrogen 65 mg/dL (8-26) Creatinine 2.9 mg/dL (0.7-1.3) Estimated GFR (Cockcroft-Gault) 27.3 Glucose Level 316 mg/dL (70-99) Calcium Level 8.6 mg/dL (8.5-10.1) Magnesium Level 1.7 mg/dL (1.8-2.4) Test 10/19/21 08:11 Glucose (Fingerstick) 299 mg/dL (70-99) Review of Systems Constitutional: yes: alert, oriented Ears/Nose/Throat: Yes: no symptom reported Eyes: Yes: no symptom reported Pulmonary: Yes no symptom reported Cardiovascular: Yes no symptom reported Gastrointestional: Yes: no symptom reported Genitourinary: Yes: no symptom reported Musculoskeletal: Yes: no symptom reported Skin: Yes no symptom reported Psychiatric/Neurological: Yes: no symptom reported Endocrine: Yes: no symptom reported Physical Exam HEENT: Neck Supple W Full Motion Chest: Symmetric LUNGS: Clear to Auscultation, Other (diminished bases) Heart: RRR Abdomen: Soft N/T, Other (obese) Extremities: Other (trace pedal edema. ) Neurology: alert, oriented, follow commands Assessment Assessment 1. Chest pain, atypical. AMI ruled out 2. Acute on chronic diastolic CHF; echo with LVEF 60 to 65%. improved s/p diuresis 3. Hypertensive urgency; remains labile 4/ CAD; moderate disease of left circumflex system per [facility] in 2017 at . MPI in 2019 without any significant ischemia with preserved LV function 5. Hyperlipidemia 6. Diabetes, II 7. MARQUISE on CKD 8. Ongoing polysubstance abuse. 9. COPD with continued tobaccoism 10. ROXANNE: uses CPAP at home 11. PAD: prior right femoropopliteal bypass in 2015, clinically stable. Follows with vascular team. Reports recent bilateral LE angiogram without intervention 12. Hypomagnesemia; replaced Recommendations Continue Bumex, metolazone Secondary prevention measures Not on BB due to cocaine use hx of bradycardia Reinforced compliance with meds and recreational cocaine/tobacco cessation Consider outpatient ischemic evaluation Follow up with primary semiconductor bonder at . Justicifation of Admission Dx: Justifications for Admission: Justification of Admission Dx: N/A SALVADOR ANDERSON MD 10/19/21 1703: CARDIO Progress Notes Assessment Assessment Patient seen and evaluated. He is feeling better today. I agree with our nurse practitioners assessment and plan. Chest pain, atypical. AMI ruled out. Continue medical treatment. Acute on chronic diastolic CHF; echo with LVEF 60 to 65%. improved s/p diuresis Hypertensive urgency; improved on present treatment. CAD; moderate disease of left circumflex system per [facility] in 2017 at . MPI in 2019 without any significant ischemia with preserved LV function Hyperlipidemia Diabetes, II MARQUISE on CKD. Improved. Monitoring lab. Ongoing polysubstance abuse. COPD with continued tobaccoism ROXANNE: uses CPAP at home PAD: prior right femoropopliteal bypass in 2015, clinically stable. Follows with vascular team. Reports recent bilateral LE angiogram without intervention Hypomagnesemia; replaced AGUILAR TRIPATHI APRN Oct 19, 2021 09:30 SALVADOR ANDERSON MD Oct 19, 2021 17:03
[2021-10-19] MEDS ORDERED: MAGNESIUM SULFATE 2GM 50 ML IV ONE (10:00)
[2021-10-19 11:00] VITALS: BP 127/47
[2021-10-19] MEDS ORDERED: MAGNESIUM OXIDE 400 MG TABLET PO SCH (11:00)
--- NOTE | 2021-10-19 12:25 | PDOC ---
[employer] PROGRESS NOTE Date of Service DOS: DATE: 10/19/21 TIME: 12:18 Chief Complaint Chief Complaint A/P: Chest pain Right flank pain Bilateral toe pain Coronary artery disease, moderate in nature without prior intervention. Peripheral arterial disease. Polysubstance use disorder History of cardiomyopathy, presumably diastolic heart failure. Dyslipidemia. Chronic kidney disease. Left great toe pain - likely podagra - treat as gout History of Present Illness History of Present Illness Mr Moran is a 56-year-old male with CAD, cardiomyopathy likely due to cocaine abuse, PAD, HLD, CKD who comes to ED c/o chest pain. UDS positive for cocaine. He notes he was just seen at [facility] and had peripheral vascular disease evaluation. Has had intermittent chest pain for the past 2 months and has been sharp. Did remit with nitroglycerin. He notes he did use cocaine on 10/12/2021. 10/16: HS troponin 49. Still some sharp left-sided chest pain and right flank pain, bilateral toe pain. No shortness of breath. 10/17: Chest pain and flank pain improved. Mag 1.6 CR BUN relatively stable. His left great toe is exquisitely painful unable to bear weight on it. He thinks this is a vascular problem though he did just have vascular assessment at [facility]. CRP 19.6, uric acid 9.4, sed rate 50, started on prednisone 60mg. 10/18: Chest pain flank pain improved. Mag 1.4 CR BUN increased. Off metolazone for right now. His toe pain is improved is able to bear weight on it. 10/19: Left foot pain improved. Renal labs relatively stable. Has outpatient follow-up. Unable to get IV fluids due to lack of IV access. He was to take p.o.'s asking to go home. Amenable to this counseled cocaine cessation and purine rich foods and renal diet. Vitals/I&O Vitals/I&O: Vital Signs Date Time Temp Pulse Resp B/P (MAP) Pulse Ox O2 Delivery O2 Flow Rate FiO2 10/19/21 11:57 94 Room Air 96.0 10/19/21 11:00 98.1 85 127/47 (73) 98.1 10/19/21 02:28 20 I & O 10/18/21 10/18/21 10/19/21 15:00 23:00 07:00 Intake Total 360 ml 680 ml 300 ml Output Total 550 ml 1100 ml Balance -190 ml 680 ml -800 ml Physical Exam General: mild distress Heart: Regular rate Lungs: Clear, Wheezing, Crackles Abdomen: Normal bowel sounds Extremities: No cyanosis Skin: No breakdown Labs Labs: Laboratory Tests Test 10/18/21 16:15 10/18/21 20:25 10/19/21 03:05 10/19/21 08:11 Glucose (Fingerstick) 202 mg/dL (70-99) 332 mg/dL (70-99) 299 mg/dL (70-99) Sodium Level 135 mmol/L (136-145) Potassium Level 5.1 mmol/L (3.5-5.1) Chloride Level 101 mmol/L (98-107) Carbon Dioxide Level 24 mmol/L (21-32) Anion Gap 10 (6-14) Blood Urea Nitrogen 65 mg/dL (8-26) Creatinine 2.9 mg/dL (0.7-1.3) Estimated GFR (Cockcroft-Gault) 27.3 Glucose Level 316 mg/dL (70-99) Calcium Level 8.6 mg/dL (8.5-10.1) Magnesium Level 1.7 mg/dL (1.8-2.4) Test 10/19/21 11:11 Glucose (Fingerstick) 326 mg/dL (70-99) Assessment and Plan Assessmemt and Plan Problems Medical Problems: (1) Chest pain Status: Acute (2) CHF (congestive heart failure) Status: Acute (3) Chronic kidney disease Status: Acute (4) Cocaine use Status: Acute (5) Diabetes mellitus Status: Acute Comment Review of Relevant I have reviewed the following items karissa (where applicable) has been applied. Medications: Current Medications Medications (Trade) Dose Ordered Sig/Kiera Route PRN Reason Start Time Stop Time Status Last Admin Dose Admin Insulin Glargine (Lantus Syringe) 32 unit QHS SQ 10/18/21 21:00 10/18/21 22:09 Magnesium Oxide (Magnesium Oxide) 400 mg TID PO 10/18/21 14:00 10/19/21 08:49 Prednisone (Prednisone) 20 mg DAILY PO 10/18/21 13:45 10/22/21 13:44 10/19/21 08:49 Insulin Human Lispro (HumaLOG) 12 units TIDAC SQ 10/19/21 07:30 10/19/21 11:57 Insulin Human Lispro (HumaLOG) 15 units 1X ONCE SQ 10/18/21 22:00 10/18/21 22:01 DC 10/18/21 22:09 Justifications for Admission Other Justification Acute respiratory failure with hypoxia, acute diastolic CHF exacerbation, right breast mass CASTILLO NICK MD Oct 19, 2021 12:25
[2021-10-19] MEDS ORDERED: HYDR-2761 PO (12:29)
[2021-10-19] MEDS ORDERED: PRED20TA PO (12:29)
--- NOTE | 2021-10-19 12:32 | PDOC3 ---
Discharge Summary Visit Information Final Diagnosis Problems Medical Problems: (1) Chest pain Status: Acute (2) CHF (congestive heart failure) Status: Acute (3) Chronic kidney disease Status: Acute (4) Cocaine use Status: Acute (5) Diabetes mellitus Status: Acute Brief Hospital Course Allergies Allergies Coded Allergies Type Severity Reaction Last Updated Verified Sulfa (Sulfonamide Antibiotics) Allergy Intermediate Rash 05/31/21 Yes Vital Signs Vital Signs Date Time Temp Pulse Resp B/P (MAP) Pulse Ox O2 Delivery O2 Flow Rate FiO2 10/19/21 11:57 94 Room Air 96.0 10/19/21 11:00 98.1 85 127/47 (73) 98.1 10/19/21 02:28 20 Lab Results Laboratory Tests Test 10/17/21 16:00 10/17/21 16:14 10/17/21 21:02 10/18/21 04:43 Erythrocyte Sedimentation Rate 50 (0-15) Glucose (Fingerstick) 180 mg/dL (70-99) 218 mg/dL (70-99) Sodium Level 133 mmol/L (136-145) Potassium Level 5.0 mmol/L (3.5-5.1) Chloride Level 98 mmol/L (98-107) Carbon Dioxide Level 19 mmol/L (21-32) Anion Gap 16 (6-14) Blood Urea Nitrogen 54 mg/dL (8-26) Creatinine 3.1 mg/dL (0.7-1.3) Estimated GFR (Cockcroft-Gault) 25.3 Glucose Level 454 mg/dL (70-99) Calcium Level 8.6 mg/dL (8.5-10.1) Magnesium Level 1.4 mg/dL (1.8-2.4) Test 10/18/21 07:46 10/18/21 11:13 10/18/21 16:15 10/18/21 20:25 Glucose (Fingerstick) 451 mg/dL (70-99) 383 mg/dL (70-99) 202 mg/dL (70-99) 332 mg/dL (70-99) Test 10/19/21 03:05 10/19/21 08:11 10/19/21 11:11 Sodium Level 135 mmol/L (136-145) Potassium Level 5.1 mmol/L (3.5-5.1) Chloride Level 101 mmol/L (98-107) Carbon Dioxide Level 24 mmol/L (21-32) Anion Gap 10 (6-14) Blood Urea Nitrogen 65 mg/dL (8-26) Creatinine 2.9 mg/dL (0.7-1.3) Estimated GFR (Cockcroft-Gault) 27.3 Glucose Level 316 mg/dL (70-99) Calcium Level 8.6 mg/dL (8.5-10.1) Magnesium Level 1.7 mg/dL (1.8-2.4) Glucose (Fingerstick) 299 mg/dL (70-99) 326 mg/dL (70-99) Laboratory Tests Test 10/18/21 16:15 10/18/21 20:25 10/19/21 03:05 10/19/21 08:11 Glucose (Fingerstick) 202 mg/dL (70-99) 332 mg/dL (70-99) 299 mg/dL (70-99) Sodium Level 135 mmol/L (136-145) Potassium Level 5.1 mmol/L (3.5-5.1) Chloride Level 101 mmol/L (98-107) Carbon Dioxide Level 24 mmol/L (21-32) Anion Gap 10 (6-14) Blood Urea Nitrogen 65 mg/dL (8-26) Creatinine 2.9 mg/dL (0.7-1.3) Estimated GFR (Cockcroft-Gault) 27.3 Glucose Level 316 mg/dL (70-99) Calcium Level 8.6 mg/dL (8.5-10.1) Magnesium Level 1.7 mg/dL (1.8-2.4) Test 10/19/21 11:11 Glucose (Fingerstick) 326 mg/dL (70-99) Brief Hospital Course Mr. Moran is a 56 old [sex] who presented with [ ] Discharge Information Scheduled Amitriptyline Hcl (Amitriptyline Hcl) 25 Mg Tablet, 25 MG PO HS for , (Re ported) Entered as Reported by: DELORES HERNANDEZ on 05/31/211 Last Action: Continued on 10/15/21 1021 by CASTILLO LOPEZ MD Amlodipine Besylate (Amlodipine Besylate) 10 Mg Tablet, 10 MG PO DAILY for HTN, #30 Ref 2 Prescribed by: ASIA GLYNN MD on 04/08/21 1420 Last Action: Continued on 10/15/21 1021 by CASTILLO LOPEZ MD Aspirin (Children's Aspirin) 81 Mg Tab.chew, 81 MG PO DAILYWBKFT, #30 Prescribed by: MICHAEL TONG MD on 06/19/16 1120 Last Action: Continued on 10/15/21 1021 by CASTILLO LOPEZ MD Atorvastatin Calcium (Atorvastatin Calcium) 40 Mg Tablet, 80 MG PO QHS for HLD, #30 Ref 2 Prescribed by: ASAI GLYNN MD on 04/08/21 1420 Last Action: Continued on 10/15/21 1021 by CASTILLO LOPEZ MD Bumetanide (Bumetanide) 1 Mg Tablet, 1 MG PO [id number] for chf for 30 Days, #60 Prescribed by: LEVAR MOREIRA MD on 11/08/20 1526 Last Action: Continued on 10/15/21 1021 by CASTILLO LOPEZ MD Cholecalciferol (Vitamin D3) (Vitamin D3 ) 25 Mcg Tablet, 25 MCG PO DAILY for SUPPLEMENT, (Reported) 1,000 UNITS = 25 MCG Entered as Reported by: DELORES HERNANDEZ on 05/31/21 2212 Last Action: HELD on 10/15/21 1021 by CASTILLO LOPEZ MD Clopidogrel Bisulfate (Clopidogrel) 75 Mg Tablet, 75 MG PO DAILY for TO PREVENT BLOOD CLOTS, #30 Ref 0 (Reported) Entered as Reported by: AKIRA MONTAÑO RN on 10/20/20 1720 Last Action: Continued on 10/15/21 1021 by CASTILLO LOPEZ MD Hydralazine Hcl (Hydralazine Hcl) 100 Mg Tablet, 100 MG PO TID for HTN, (Reported) Entered as Reported by: AKIRA MONTAÑO RN on 10/20/20 1720 Last Action: HELD on 10/15/21 1021 by CASTILLO LOPEZ MD Insulin Aspart (Novolog Flexpen) 100 Unit/1 Ml Insuln.pen, 30 UNIT SQ TIDAC for DM, (Reported) Entered as Reported by: Mary De La O on 11/22/13 2332 Last Action: HELD on 10/15/21 1021 by CASTILLO LOPEZ MD Insulin Detemir (Levemir Flexpen) 100 Unit/1 Ml Insuln.pen, 60 UNIT SQ HS for DM, (Reported) Entered as Reported by: Mary De La O on 11/22/13 2332 Last Action: HELD on 10/15/21 1021 by CASTILLO LOPEZ MD Insulin Lispro (Admelog) 100 Unit/1 Ml Vial, 0 UNITS SQ TIDWMEALS for PER SS PROTOCOL for 14 Days, #1 Prescribed by: CHANELL ALBERTS MD on 06/01/21 1227 Last Action: HELD on 10/15/21 1021 by CASTILLO LOPEZ MD Isosorbide Mononitrate (Isosorbide Mononitrate Er) 30 Mg Tab.er.24h, 60 MG PO DAILY for Angina, #30 Ref 2 Prescribed by: ASIA GLYNN MD on 04/08/21 1420 Last Action: Continued on 10/15/21 1021 by CASTILLO LOPEZ MD Pantoprazole Sodium (Protonix ) 40 Mg Tablet.dr, 40 MG PO BID for GERD, (Reported) Entered as Reported by: AKIRA MONTAÑO RN on 10/20/20 1720 Last Action: Continued on 10/15/21 1021 by CASTILLO LOPEZ MD Prednisone (Prednisone) 20 Mg Tablet, 1 TAB PO DAILY for GOUT flare for 5 Days, #5 Prescribed by: CASTILLO NICK MD on 10/19/21 1229 Tamsulosin Hcl (Flomax) 0.4 Mg Cap.er.24h, 0.4 MG PO DAILY, #30 Prescribed by: MICHAEL TONG MD on 06/19/16 1120 Last Action: Continued on 10/15/21 1021 by CASTILLO LOPEZ MD Scheduled PRN Acetaminophen (Acetaminophen) 325 Mg Tablet, 650 MG PO PRN Q6HRS PRN for Headaches, Temp > 101.5F for 30 Days, #60 Prescribed by: CHANELL ALBERTS MD on 06/01/21 1227 Last Action: HELD on 10/15/21 102 by CASTILLO LOPEZ MD Hydrocodone Bit/Acetaminophen (Hydrocodone-Apap 5-325 ) 1 Tab Tablet, 1 TAB PO PRN Q6HRS PRN for MODERATE TO SEVERE PAIN for 5 Days, #18 Ref 0 Prescribed by: CASTILLO NICK MD on 10/19/21 1230 Nitroglycerin (Nitrostat) 0.4 Mg Tab.subl, 0.4 MG SL PRN Q5MIN PRN for CHEST PAIN, #30 Ref 1 Prescribed by: ASIA GLYNN MD on 04/08/21 1420 Last Action: Continued on 10/15/21 1021 by CASTILLO LOPEZ MD Sennosides/Docusate Sodium (Senna-Docusate Sodium Tablet) 1 Each Tablet, 2 TAB PO PRN QEVNG PRN for CONSTIPATION for 5 Days, Ref 0 (Reported) Entered as Reported by: AKIRA MONTAÑO RN on 10/20/201719 Last Action: Continued on 10/15/21 1021 by CASTILLO LOPEZ MD Discontinued Medications Empagliflozin (Jardiance) 10 Mg Tablet, 10 MG PO DAILY for , (Reported) Entered as Reported by: Robert Tuttle on 04/05/212050 Last Action: HELD on 10/15/21 1021 by CASTILLO LOPEZ MD Gabapentin (Gabapentin) 600 Mg Tablet, 300 MG PO TID for NEUROGENIC PAIN, (Reported) Entered as Reported by: AKIRA MONTAÑO RN on 10/20/201719 Last Action: HELD on 10/15/21 1021 by CASTILLO LOPEZ MD Losartan Potassium (Losartan Potassium) 100 Mg Tablet, 100 MG PO DAILY for HYPERTENSION, (Reported) Entered as Reported by: Robert Tuttle on 04/05/212050 Last Action: Converted on 10/15/21 102 by CASTILLO LOPEZ MD Metolazone (Metolazone) 2.5 Mg Tablet, 2.5 MG PO DAILY for chf for 30 Days, #30 Prescribed by: LEVAR MOREIRA MD on 11/08/20 1526 Last Action: Continued on 10/15/21 1021 by CASTILLO LOPEZ MD Justicifation of Admission Dx: Justifications for Admission: Justification of Admission Dx: N/A CASTILLO NICK MD Oct 19, 2021 12:32
--- NOTE | 2021-10-19 14:37 | PDOC ---
Renal-Progress Notes Subjective Notes Notes NO NEW COMPLAINTS History of Present Illness Hx of present illness STABLE Vitals Vitals Vital Signs Date Time Temp Pulse Resp B/P (MAP) Pulse Ox O2 Delivery O2 Flow Rate FiO2 10/19/21 11:57 94 Room Air 96.0 10/19/21 11:00 98.1 85 127/47 (73) 98.1 10/19/21 02:28 20 Weight Weight [ ] I.O. Intake and Output Intake and Output 10/19/21 07:00 Intake Total 1340 ml Output Total 1650 ml Balance -310 ml Intake Oral 1340 ml Output Urine Total 1650 ml # Voids 3 Labs Labs Laboratory Tests Test 10/18/21 16:15 10/18/21 20:25 10/19/21 03:05 10/19/21 08:11 Glucose (Fingerstick) 202 mg/dL (70-99) 332 mg/dL (70-99) 299 mg/dL (70-99) Sodium Level 135 mmol/L (136-145) Potassium Level 5.1 mmol/L (3.5-5.1) Chloride Level 101 mmol/L (98-107) Carbon Dioxide Level 24 mmol/L (21-32) Anion Gap 10 (6-14) Blood Urea Nitrogen 65 mg/dL (8-26) Creatinine 2.9 mg/dL (0.7-1.3) Estimated GFR (Cockcroft-Gault) 27.3 Glucose Level 316 mg/dL (70-99) Calcium Level 8.6 mg/dL (8.5-10.1) Magnesium Level 1.7 mg/dL (1.8-2.4) Test 10/19/21 11:11 Glucose (Fingerstick) 326 mg/dL (70-99) Review of Systems Constitutional: yes: alert, oriented Ears/Nose/Throat: Yes: no symptom reported Eyes: Yes: no symptom reported Pulmonary: Yes no symptom reported Cardiovascular: Yes no symptom reported Gastrointestional: Yes: no symptom reported Genitourinary: Yes: no symptom reported Musculoskeletal: Yes: no symptom reported Skin: Yes no symptom reported Psychiatric/Neurological: Yes: no symptom reported Endocrine: Yes: no symptom reported Physical Exam General Appearance: no apparent distress Skin: warm Respiratory: bilateral CTA Heart: S1S2 Abdomen: soft, bowel sounds present Genitourinary: bladder flat Extremities: pulses present Neurology: alert, oriented, follow commands Musculoskeletal: Other Assessment Assessment IMP CKD STAGE 4-CR AT BASELINE-CR OF ABOUT 2.9 NOW MILD HYPERKALEMIA-RESOLVED HYPOMAGNESEMIA-BETTER NON COMPLIANCE CHEST PAIN-RESOLVVED BPH CAD HX UNCONTROLLED HTN-LABILE POLYSUBSTANCE DRUG ABUSE-COCAINE PLAN CONT SAME CONT DIURETICS REPLACE MAG CONT FLOMAX ENC COMPLIANCE AND ABSTINENCE FROM DRUG USE CARDIOLOGY EVALUATION D/C PLANS NOTED COREEN VERDE MD Oct 19, 2021 14:37
[2021-10-19 14:57] VITALS: BP 132/74
--- NOTE | 2021-10-19 18:04 | NUR ---
Discharge Note: HAILEY MOREIRA Discharge instructions and discharge home medications reviewed with Patient and a copy given. All questions have been answered and understanding verbalized.
== END 2021-10-19 17:45 | disposition home or self-care (01) | DRG 291 ==
LOC: ER 06:33 → 6 SOUTH 10:16 → ED HOLD 10:17 → 6 SOUTH 17:02 → OBSVTOIN 10-17 15:05
PROVIDERS: ADMIT Student in an Organized Health Care Education/Training Program; ATTEND Student in an Organized Health Care Education/Training Program
DX: I13.0 Hypertensive heart and chronic kidney disease with heart failure and stage 1 through stage 4 chronic kidney disease, or unspecified chronic kidney disease (principal); I50.33 Acute on chronic diastolic (congestive) heart failure; N17.0 Acute kidney failure with tubular necrosis; N18.4 Chronic kidney disease, stage 4 (severe); I42.9 Cardiomyopathy, unspecified; D64.9 Anemia, unspecified; E11.22 Type 2 diabetes mellitus with diabetic chronic kidney disease; E11.51 Type 2 diabetes mellitus with diabetic peripheral angiopathy without gangrene; E78.00 Pure hypercholesterolemia, unspecified; E78.5 Hyperlipidemia, unspecified; E83.42 Hypomagnesemia; E87.5 Hyperkalemia; E87.6 Hypokalemia; F14.10 Cocaine abuse, uncomplicated; F17.200 Nicotine dependence, unspecified, uncomplicated; G47.33 Obstructive sleep apnea (adult) (pediatric); I16.0 Hypertensive urgency; I25.119 Atherosclerotic heart disease of native coronary artery with unspecified angina pectoris; I27.20 Pulmonary hypertension, unspecified; I48.91 Unspecified atrial fibrillation; J44.9 Chronic obstructive pulmonary disease, unspecified; K21.9 Gastro-esophageal reflux disease without esophagitis; M10.9 Gout, unspecified; N40.0 Benign prostatic hyperplasia without lower urinary tract symptoms; N63.10 Unspecified lump in the right breast, unspecified quadrant; Z79.02 Long term (current) use of antithrombotics/antiplatelets; Z79.4 Long term (current) use of insulin; Z79.84 Long term (current) use of oral hypoglycemic drugs; Z79.899 Other long term (current) drug therapy; Z82.49 Family history of ischemic heart disease and other diseases of the circulatory system; Z86.73 Personal history of transient ischemic attack (TIA), and cerebral infarction without residual deficits; Z91.19 Patient's noncompliance with other medical treatment and regimen
CPT/HCPCS: 36415; 71045; 76770; 80048; 80053; 80307; 81001; 82962; 83735; 83880; 84484; 84550; 85025; 85651; 86140; 93005; 93306; 96374; G0378; G0379; G0480; J1815; J1940; J2060; J2270; J3475; J7512; 99285-25; C8929